=== PATIENT | male | born 1955 | race Hispanic/Latino ===

== ENCOUNTER 2017-03-23 22:01 | Inpatient (IN) | payer OTHER ==
[~2017-03-23] VITALS: Ht 170.2 cm; Wt 89.4 kg
[~2017-03-23 22:01] MED LIST: ACTOS15 MG PO; AMIODARONE HCL200 MG PO; CALCITRIOL0.25 MCG PO; DECARA25000 UNIT PO; FUROSEMIDE40 MG PO; GLUCOTROL10 MG PO; HUMALOG MI100 UNITS/ SC; HYDRALAZINE HCL25 MG PO; LABETALOL HCL200 MG PO; METOPROLOL SUCC25 MG PO; METOPROLOL TART50 MG PO; PREDNISONE5 MG PO; PROGRAF1 MG PO; REGLAN5 MG PO; VITAMIN D1000 UNI1 PO; WARFARIN SODIUM1 MG PO; WARFARIN SODIUM2 MG PO
[2017-03-23] MEDS ORDERED: HUMALOG MI100 UNITS/ SC (22:35)
[2017-03-23] MEDS ORDERED: WARFARIN SODIUM1 MG PO (22:35)
[2017-03-23] MEDS ORDERED: TORSEMIDE20 MG (22:35)
[2017-03-23] MEDS ORDERED: LIDOCAINE JELLY 2% 10ML URO-JET TOP ONE (22:45)
[2017-03-23 23:03] LABS: BASOPHILS % 0.2 % (0.0-1.0); EOSINOPHILS # (AUTO) 0.1 (0.0-0.4); EOSINOPHILS % 0.9 % (0.0-6.0); HEMATOCRIT 33.9 % (38.2-49.6); HEMOGLOBIN 11.3 g/dL (14.0-18.0); LYMPHOCYTES # (AUTO) 1.3 (1.0-3.2); MEAN CORPUSCULAR HEMOGLOBIN 31.1 pg (28-32); MEAN CORPUSCULAR HGB CONC 33.3 g/dL (31-35); MEAN CORPUSCULAR VOLUME 93.4 fL (81-99); MONOCYTES # (AUTO) 0.7 (0.2-0.8); MONOCYTES % 8.5 % (4.4-11.3); NEUTROPHILS # (AUTO) 5.9 (2.1-6.9); NEUTROPHILS % 73.9 % (38.7-80.0); PLATELET COUNT 168 x10e3/uL (140-360); RED BLOOD COUNT 3.63 x10e6/uL (4.3-5.7); RED CELL DISTRIBUTION WIDTH 14.5 % (11.7-14.4)
[2017-03-23 23:06] LABS: ALBUMIN 4.1 g/dL (3.5-5.0); ALBUMIN/GLOBULIN RATIO 1.5 (0.8-2.0); ANION GAP 18.9 mmol/L (8-16); CREATININE, SERUM 2.86 mg/dL (0.72-1.25); POTASSIUM 3.9 mmol/L (3.5-5.1)
[2017-03-23 23:09] LABS: CALCIUM 10.3 mg/dL (8.4-10.2)
[2017-03-23] MEDS ORDERED: HYDRALAZINE HCL 20 MG/ML VIAL IV STA (23:29)
[2017-03-23 23:43] LABS: BILIRUBIN,URINE NEGATIVE (NEGATIVE); CLARITY,URINE CLOUDY (CLEAR); KETONES,URINE TRACE (NEGATIVE); LEUKOCYTE ESTERASE ,URINE 1+ (NEGATIVE); NITRITE,URINE NEGATIVE (NEGATIVE); URINE UROBILINOGEN 0.2 mg/dL (0.2 - 1)
[2017-03-23 23:49] LABS: PROTEIN,URINE DIPSTICK 2+ (NEGATIVE)
[2017-03-23 23:50] LABS: COLOR,URINE STRAW (YELLOW)
[2017-03-23 23:57] LABS: BACTERIA,URINE MODERATE /HPF; EPITHELIAL CELLS,URINE FEW /LPF; MUCUS,URINE MODERATE (RARE); RBC,URINE >50 /HPF (0-5); TRANSITIONAL EPI CELLS,URINE MODERATE; WBC,URINE (MAN) >50 /HPF (0-5)
[2017-03-24] MEDS ORDERED: ALPRAZOLAM0.5 MG PO (00:22)
--- NOTE | 2017-03-24 01:08 | Diagnostic Imaging Report ---
EXAM: CT ABDOMEN AND PELVIS without IV CONTRAST DATE: 03/24/2017 12:31 AM Time stamp on Exam: 0039 hours INDICATION: Lower abdominal pain, unable to urinate COMPARISON: None TECHNIQUE: The abdomen and pelvis were scanned using a multidetector helical scanner. Coronal and sagittal reformations were obtained. Routine protocol performed. IV Contrast: None Oral Contrast: Gastrografin CTDIvol has been reviewed. It is below the limits set by the Radiation Protocol Committee (RPC). FINDINGS: LOWER THORAX: No consolidations LIVER: No masses BILIARY: Normal gallbladder. No ductal dilation. SPLEEN: No masses PANCREAS: Pancreatic atrophy ADRENALS: No nodules RIGHT KIDNEY: No nephroureterolithiasis or hydronephrosis. Cortical thinning. LEFT KIDNEY: No nephroureterolithiasis or hydronephrosis. Cortical thinning. There is a right renal transplant with a few foci of air in the inferior calyces and ureter. Nonspecific stranding around the transplanted ureter. GI TRACT: Left colectomy with right lower quadrant colostomy. No bowel obstruction VESSELS: Marked atherosclerotic changes of the abdominal aorta without aneurysm. Infrarenal inferior vena cava filter. PERITONEUM/RETROPERITONEUM: No free air or fluid LYMPH NODES: No lymphadenopathy REPRODUCTIVE ORGANS: Normal BLADDER: The bladder is decompressed by a Sands catheter. There is a small amount of air in the bladder. SOFT TISSUES: Left lower quadrant colostomy. BONES: No suspicious bone lesions. IMPRESSION: Right pelvic renal transplant without hydronephrosis. Small amount of air in the inferior calyces and ureter is nonspecific and may be from the bladder/Sands catheter. Nonspecific mild amount of stranding around the transplant ureter. Left lower quadrant colostomy. No evidence of bowel obstruction. Signed by: Dr. Belia Joiner M.D. on 03/24/2017 1:04 AM
[2017-03-24] MEDS ORDERED: CEFTRIAXONE SOD 1 GM VIAL IV STA (01:39)
[2017-03-24] MEDS ORDERED: ONDANSETRON HCL INJ 2 MG/ML VIAL IV PRN (02:45)
[2017-03-24] MEDS ORDERED: CEFTRIAXONE SOD 1 GM VIAL IV SCH (02:45)
[2017-03-24] MEDS ORDERED: HYDRALAZINE HCL 25 MG TAB PO PRN (02:45)
[2017-03-24] MEDS ORDERED: METOPROLOL SUCCINATE 25 MG TAB XL PO PRN (02:45)
[2017-03-24] MEDS ORDERED: DEXTROSE 50% SYRINGE 50 ML IV PRN (02:45)
[2017-03-24] MEDS ORDERED: ACETAMINOPHEN 325 MG TAB PO ONE (05:30)
[2017-03-24] MEDS ORDERED: ACETAMINOPHEN 325 MG TAB PO PRN (05:30)
[2017-03-24] MEDS ORDERED: ACETAMINOPHEN 325 MG TAB ONE (05:31)
[2017-03-24] MEDS: INSULIN REGULAR, HUMAN 100 UNIT/1 ML 3ML VIAL SQ SCH ×4 (07:55→21:00)
[2017-03-24] MEDS ORDERED: WARFARIN SOD 2 MG TAB PO SCH (09:00)
[2017-03-24] MEDS ORDERED: METOCLOPRAMIDE HCL 10 MG TAB PO SCH (09:00)
[2017-03-24] MEDS ORDERED: CALCITRIOL 0.25 MCG CAP PO SCH (09:00)
[2017-03-24] MEDS: NON-FORMULARY MEDICATION (Metoclopramide Hcl (Reglan) 5 MG) PO SCH ×4 (09:19→21:00)
[2017-03-24] MEDS: TACROLIMUS 1 MG CAP PO SCH ×2 (09:35→17:01)
[2017-03-24] MEDS: HYDRALAZINE HCL 25 MG TAB PO SCH (09:35)
[2017-03-24] MEDS: AMIODARONE HCL 200 MG TAB PO SCH (09:35)
[2017-03-24] MEDS: ALPRAZOLAM 0.5 MG TAB PO SCH (09:35)
[2017-03-24] MEDS: PREDNISONE 5 MG TAB PO SCH (09:35)
[2017-03-24 09:45] LABS: INR 2.42; PROTHROMBIN TIME 27.6 seconds (11.9-14.5)
--- NOTE | 2017-03-24 13:06 | Consultation ---
DATE OF CONSULTATION: March 24, 2017 HISTORY OF PRESENT ILLNESS: This is a pleasant 62-year-old gentleman with underlying history of chronic kidney disease. He is known to our nephrology service. Has had a cadaveric renal transplant in 2013. He is maintained on Prograf 2 mg twice a day and prednisone 5 mg once a day. Renal has been consulted for management of underlying kidney failure. He also has underlying history of congestive heart failure, hypertension, chronic kidney disease stage 3, history of type 2 diabetes, atrial fibrillation. CURRENT LABS: White count 8. Hemoglobin 11.3. Sodium 141. Potassium 3.9. Bicarbonate 24. BUN 46. Creatinine 2.8. Calcium 10.3. ALLERGIES: NO APPARENT DRUG ALLERGIES. SOCIAL HISTORY: Patient does not smoke or drink. FAMILY HISTORY: Significant for diabetes. CURRENT MEDICATIONS: Reglan 5 mg p.o. q.a.c. and nightly. Warfarin 2 mg daily. Tacrolimus 2 mg p.o. b.i.d. Prednisone 5 mg p.o. daily. Metoprolol XL 25 mg p.o. b.i.d. Hydralazine p.r.n. Ceftriaxone 1 gram IV q.24. Tylenol p.r.n. Xanax 0.5 mg daily. Amiodarone 200 mg daily. Rocaltrol 0.25 mcg p.o. daily. PHYSICAL EXAMINATION: GENERAL: Awake, alert, lying supine. No apparent distress. VITALS: Blood pressure 130/60, pulse rate 80. HEAD AND NECK: Cornea clear. Oral mucosa dry. Neck veins flat. LUNGS: Relatively clear. HEART: S1 and S2 audible. ABDOMEN: Otherwise soft, nontender. LOWER EXTREMITY EXAMINATION: Shows no edema. IMPRESSION: Chronic kidney disease, acute kidney injury, underlying stage 3 kidney failure with a patient having difficulty passing urine. Workup included CT scan abdomen and pelvis, shows left lower quadrant colostomy. Other than that, right pelvic renal transplant without hydronephrosis. Nonspecific mild amount of stranding. He denies any fever and chills. Will have a Sands catheter placed, start gentle IV fluids. Has hypercalcemia. I will discontinue Rocaltrol. Will obtain intact PTH level. Obtain kidney ultrasound. Apply knee-high LÓPEZ hoses. Obtain urine culture. Please see orders. Job#: [id number] EV
--- NOTE | 2017-03-24 13:11 | Diagnostic Imaging Report ---
EXAM: Renal Ultrasound INDICATION: \S\renal; transplant \[id number] \[id number] COMPARISON: CT dated 03/24/2017 TECHNIQUE: Transverse and longitudinal images of the kidneys and bladder were obtained. FINDINGS: Right Kidney: Size: 8.1 cm Echogenicity: Increased Parenchymal thickness: Decreased Collecting system: No hydronephrosis Stones: None Cyst/Mass: None Left Kidney: Size: 8.5 cm Echogenicity: Increased Parenchymal thickness: Decreased Collecting system: No hydronephrosis Stones: None Cyst/Mass: None Bladder: Not imaged. Patient had a Sands catheter in place. Right pelvic transplanted kidney measuring 12.9 x 5.9 x 6.8 cm, demonstrating normal parenchymal thickness and echogenicity. No hydronephrosis. IMPRESSION: Small echogenic cahto kidneys, consistent with known chronic renal disease. Transplanted right pelvic kidney without gross abnormalities. Signed by: Dr. Chas Hardy MD on 03/24/2017 1:07 PM
[2017-03-24] MEDS: CEFEPIME HCL 1 GM VIAL IV SCH (13:16)
[2017-03-24] MEDS: METOCLOPRAMIDE HCL 10 MG TAB PO SCH (16:19)
[2017-03-24] MEDS ORDERED: WARFARIN SOD 1 MG TAB PO SCH (17:00)
[2017-03-25] MEDS ORDERED: CEFTRIAXONE SOD 1 GM VIAL IV SCH (01:00)
[2017-03-25 05:17] LABS: BASOPHILS % 0.3 % (0.0-1.0); EOSINOPHILS # (AUTO) 0.1 (0.0-0.4); EOSINOPHILS % 1.1 % (0.0-6.0); HEMATOCRIT 32.5 % (38.2-49.6); HEMOGLOBIN 10.8 g/dL (14.0-18.0); LYMPHOCYTES # (AUTO) 1.1 (1.0-3.2); LYMPHOCYTES % 13.9 % (18.0-39.1); MEAN CORPUSCULAR HEMOGLOBIN 30.9 pg (28-32); MEAN CORPUSCULAR HGB CONC 33.2 g/dL (31-35); MEAN CORPUSCULAR VOLUME 93.1 fL (81-99); MONOCYTES # (AUTO) 0.9 (0.2-0.8); MONOCYTES % 11.4 % (4.4-11.3); NEUTROPHILS # (AUTO) 5.8 (2.1-6.9); NEUTROPHILS % 72.9 % (38.7-80.0); PLATELET COUNT 138 x10e3/uL (140-360); RED BLOOD COUNT 3.49 x10e6/uL (4.3-5.7); RED CELL DISTRIBUTION WIDTH 14.5 % (11.7-14.4)
[2017-03-25 05:42] LABS: ALBUMIN 3.4 g/dL (3.5-5.0); ALBUMIN/GLOBULIN RATIO 1.4 (0.8-2.0); ANION GAP 14.6 mmol/L (8-16); CALCIUM 9.7 mg/dL (8.4-10.2); CREATININE, SERUM 2.33 mg/dL (0.72-1.25); POTASSIUM 3.6 mmol/L (3.5-5.1)
[2017-03-25] MEDS: INSULIN REGULAR, HUMAN 100 UNIT/1 ML 3ML VIAL SQ SCH (08:09)
[2017-03-25] MEDS: NON-FORMULARY MEDICATION (Metoclopramide Hcl (Reglan) 5 MG) PO SCH (08:17)
[2017-03-25] MEDS: HYDRALAZINE HCL 25 MG TAB PO SCH (08:18)
[2017-03-25] MEDS: TACROLIMUS 1 MG CAP PO SCH (08:18)
[2017-03-25] MEDS: METOCLOPRAMIDE HCL 10 MG TAB PO SCH (08:18)
[2017-03-25] MEDS: CEFEPIME HCL 1 GM VIAL IV SCH (08:18)
[2017-03-25] MEDS: AMIODARONE HCL 200 MG TAB PO SCH (08:18)
[2017-03-25] MEDS: ALPRAZOLAM 0.5 MG TAB PO SCH (08:18)
[2017-03-25] MEDS: PREDNISONE 5 MG TAB PO SCH (08:18)
[2017-03-25 09:36] VITALS: BP 151/59
[2017-03-25] MEDS ORDERED: CEFEPIME HCL 1 GM VIAL IV ONE (09:45)
--- OUTSIDE RECORDS SUMMARY | 2017-04-11 11:19 | XMS REPORT ---
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 Allergies, Adverse Reactions, Alerts This patient has no known allergies or adverse reactions. Medications This patient has no known medications. Results Test Description Test Time Test Comments Text Results Atomic Results Result Comments CT ABDOMEN/PELVIS WO [place] [id number] Patient Name: MARTHA SMITH MR #: [id number] : 1955 Age/Sex: 62/M Req #: [id number] Adm Physician: Ordered by: BE MEZA MD Report #: [id number] Location: ER Room/Bed: ___ Procedure: [id number] CT/CT ABDOMEN/PELVIS WO Exam Date: Exam Time: REPORT STATUS: Signed EXAM: CT ABDOMEN AND PELVIS without IV CONTRAST DATE: 03/24/2017 12:31 AM Time stamp on Exam: 0039 hours INDICATION: Lower abdominal pain, unable to urinate COMPARISON: None TECHNIQUE: The abdomen and pelvis were scanned using a multidetector helical scanner. Coronal and sagittal reformations were obtained. Routine protocol performed. IV Contrast: None Oral Contrast: Gastrografin CTDIvol has been reviewed. It is below the limits set by the Radiation Protocol Committee (RPC). FINDINGS: LOWER THORAX: No consolidations LIVER : No masses BILIARY: Normal gallbladder. No ductal dilation. SPLEEN: No masses PANCREAS: Pancreatic atrophy ADRENALS: No nodules RIGHT KIDNEY: No nephroureterolithiasis or hydronephrosis. Cortical thinning. LEFT KIDNEY: No nephroureterolithiasis or hydronephrosis. Cortical thinning. There is a right renal transplant with a few foci of air in the inferior calyces and ureter. Nonspecific stranding around the transplanted ureter. GI TRACT: Left colectomy with right lower quadrant colostomy. No bowel obstruction VESSELS: Marked atherosclerotic changes of the abdominal aorta without aneurysm. Infrarenal inferior vena cava filter. PERITONEUM/ RETROPERITONEUM: No free air or fluid LYMPH NODES: No lymphadenopathy REPRODUCTIVE ORGANS: Normal BLADDER: The bladder is decompressed by a Sands catheter. There is a small amount of air in the bladder. SOFT TISSUES: Left lower quadrant colostomy. BONES: No suspicious bone lesions. IMPRESSION: Right pelvic renal transplant without hydronephrosis. Small amount of air in the inferior calyces and ureter is nonspecific and may be from the bladder/Sands catheter. Nonspecific mild amount of stranding around the transplant ureter. Left lower quadrant colostomy. No evidence of bowel obstruction. Signed by: Dr. Kira Joiner M.D. on 03/24/2017 1: 04 AM Dictated By: KIRA JOINER MD 3 Transcribed By: LESIA on 03/24/17103 COPY TO: BE MEZA MD RENAL RETROPERITONEAL COMP [place] [address] Patient Name: MARTHA SMITH MR #: [id number] : 1955 Age/Sex: 62/M Req #: [id number] Adm Physician: KALEB CHA MD Ordered by: INOCENCIA PEARL, ANGELIQUE PEARL Report #: [id number] Location: [facility] Room/Bed: [place] [address] Procedure: [id number] US/US RENAL RETROPERITONEAL COMP Exam Date: 03/24/17 Exam Time: 1158 REPORT STATUS: Signed EXAM: Renal Ultrasound INDICATION: COMPARISON: CT dated 03/24/2017 TECHNIQUE: Transverse and longitudinal images of the kidneys and bladder were obtained. FINDINGS: Right Kidney: Size: 8.1 cm Echogenicity: Increased Parenchymal thickness: Decreased Collecting system: No hydronephrosis Stones: None Cyst/Mass: None Left Kidney: Size: 8.5 cm Echogenicity: Increased Parenchymal thickness: Decreased Collecting system: No hydronephrosis Stones: None Cyst/Mass : None Bladder: Not imaged. Patient had a Sands catheter in place. Right pelvic transplanted kidney measuring 12.9 x 5.9 x 6.8 cm, demonstrating normal parenchymal thickness and echogenicity. No hydronephrosis. IMPRESSION: Small echogenic barrow kidneys, consistent with known chronic renal disease. Transplanted right pelvic kidney without gross abnormalities. Signed by: Dr. Chas Adams MD on 03/24/2017 1:07 PM Dictated By: CHAS ADAMS MD 1307 Transcribed By: LESIA on 03/24/17 1307 COPY TO: ANGELIQUE PRO Stress Test - Treadmill ONLY [place] [address] Patient Name : MARTHA SMITH MR #: [id number] : 1955 Age/Sex: 62/M Adm Physician : KALEB CHA MD Admit Date : 02/23/17 Location : MED/SURG Room/Bed : [facility] REPORT: Cardiology Report DATE OF STUDY: February 24, 2017 LEXISCAN NUCLEAR STRESS TEST INDICATIONS: Chest pain. DESCRIPTION OF PROCEDURE: After informed consent, the patient was brought to the stress lab. He was given 11 mCi of technetium 99 Myoview, and myocardial perfusion SPECT images were obtained in the horizontal long and short axis and vertical long axis views. Subsequently, the patient was given 0.4 mg of Lexiscan over 10 seconds. Patient was given 32 mCi of technetium 99 Myoview, and myocardial perfusion SPECT images were obtained in horizontal long axis and short axis and vertical long axis views. Gated images were also obtained. Patient tolerated the procedure without any complications. REPORT: Baseline EKG shows sinus rhythm at 78 beats per minute, right axis, right bundle branch block, secondary ST-T changes. PARAMETERS 1. Resting heart rate is 78 beats per minute. 2. Maximum heart rate is 89 beats per minute. 3. Resting blood pressure 121/65 mmHg. 4. Maximum blood pressure 126/67 mmHg. REASON FOR TERMINATION: Endpoint attained. INTERPRETATION 1. Negative for chest pain. 2. Negative for arrhythmias. 3. Blood pressure response consistent with Lexiscan. 4. No significant ST-T changes seen during Lexiscan infusion compared to baseline. 5. Analysis of SPECT images reveals a small area of decreased radioisotope uptake in the inferior wall both during rest and stress without any significant reversible perfusion defects. CONCLUSIONS 1. This study demonstrates a small area of inferior wall infarction. No significant ischemia is noted. 2. Overall ejection fraction is 54%. DD: 12:32 Job#: [id number] Signature Date Dictated By: IBRAHIMA KULKARNI MD Transcribed By: MERRICK on 02/25/17 <Electronically signed by IBRAHIMA KULKARNI MD><<Signature on File>>03/04/17 4804 COPY TO: CHEST [facility] (PORTABLE) [place] [address] Patient Name: MARTHA SMITH MR #: [id number] : 1955 Age/Sex: 62/M Req #: [id number] Adm Physician: Ordered by: ANILA TREVIÑO MD Report #: [id number] Location: ER Room/Bed: Procedure: [id number] DX/CHEST SINGLE (PORTABLE) Exam Date: 02/22/17 Exam Time: 1515 REPORT STATUS: Signed EXAMINATION: Chest, CHEST SINGLE (PORTABLE) INDICATION: Chest pain COMPARISON : Portable chest 02/09/2017 FINDINGS: LINES: None. Heart: Normal cardiac silhouette. Vascular: The pulmonary vasculature is within normal limits. Atherosclerotic calcifications of the aortic arch. Mediastinum: No mediastinal, hilar, or axillary mass or lymphadenopathy. Lungs: No parenchymal mass. No focal consolidation. Pleura: No pleural effusion. No pneumothorax. Bones: No acute osseous abnormality. Degenerative changes of the thoracic spine. Soft tissues: Normal. Impression: No acute radiographic abnormality. Signed by: Dr. Kaleb Barrow M.D. on 02/22/2017 3:40 PM Dictated By: KALEB BARROW MD 154 Transcribed By: LESIA on 02/22/17 154 COPY TO: ANILA TREVIÑO MD RENAL RETROPERITONEAL COMP [place] [address] Patient Name: MARTHA SMITH MR #: [id number] : 1955 Age/Sex: 62/M Req #: [id number] Adm Physician: KALEB CHA MD Ordered by: CHERYLE PUCKETT MD Report #: [id number] Location: MED/SURG Room/Bed: 113-1 Procedure: [id number] US/US RENAL RETROPERITONEAL COMP Exam Date: Exam Time: REPORT STATUS: Signed PROCEDURE: US RETROPERITONEAL ( KIDNEY ). COMPARISON: None. INDICATIONS: AKICKD+DDKTx TECHNIQUE: Comer-scale and color sonographic images of the bilateral kidneys and bladder where obtained in transverse and longitudinal planes. FINDINGS: RIGHT KIDNEY: 7.8 cm, cortex 1.1 cm Cysts: None. Solid masses: None. Stones: None. Hydronephrosis: None. Echogenicity: Increased. LEFT KIDNEY: 8.6 cm, cortex 0.9 cm Cysts: None. Solid masses: None. Stones: None. Hydronephrosis: None. Echogenicity: Increased. Transplant KIDNEY: 13.4 cm, right lower quadrant Cysts: None. Solid masses: None. Stones: None. Hydronephrosis: None. Echogenicity: Normal. Bladder: Normal contour. The left ureteral jet is visualized. Prostate: Not visualized. CONCLUSION: Normal transplant kidney. Dictated by: Kaleb Barrow M.D. on 02/10/2017 at 14: 13 Electronically approved by: Kaleb Barrow M.D. on 02/10/2017 at 14:13 Dictated By: KALEB BARROW MD 141 Transcribed By: LALO on 02/10/17 1413 COPY TO: CHERYLE PUCKETT MD [facility] (PORTABLE) [place] [address] Patient Name: MARTHA SMITH MR #: [id number] : 1955 Age/Sex: 62/M Req #: [id number] [facility] Physician: Ordered by: PETRA DE LA CRUZ MD Report #: [id number] Location: ER Room/Bed: Procedure: [id number] DX/CHEST SINGLE (PORTABLE) Exam Date: 02/09/17 Exam Time: 1050 REPORT STATUS: Signed EXAM: XR CHEST 1 VIEW DATE: 02/09/2017 10:13 AM INDICATION: Elevated blood pressure COMPARISON: 01/14/2017 FINDINGS: Lines and Tubes: None Heart and Mediastinum: The cardiomediastinal silhouette is enlarged, possibly partially related to portable technique and/or low lung volumes. Aortic vascular calcifications present. Lungs and Pleura: Minimal opacities in the lung bases statistically represent atelectasis, however, infectious process could have a similar appearance. Bones and Soft Tissues: No acute findings. IMPRESSION: 1. No acute cardiopulmonary findings. Signed by: Dr. Rolo Padilla MD on 02/09/2017 11:06 AM Dictated By: ROLO PADILLA MD 1106 Transcribed By: LESIA on 02/09/17 110 COPY TO: PETRA DE LA CRUZ MD CT BRAIN WO [place] [address] Patient Name: MARTHA SMITH MR #: [id number] : 1955 Age/Sex: 62/M Req # : [id number] Adm Physician: Ordered by: PETRA DE LA CRUZ MD Report #: [id number] Location: ER Room/Bed: Procedure: [id number] CT/CT BRAIN WO Exam Date: 02/09/17 Exam Time: 1040 REPORT STATUS: Signed Examination: CT BRAIN WITHOUT CONTRAST History:Slurred speech. Elevated blood pressure. Anxiety. Comparison studies: None Technique: Axial images were obtained from the skull base to the vertex. Coronal and sagittal images reconstructed from the axial data. Intravenous contrast: None Findings: Scalp: No abnormalities. Bones : No fractures, blastic or lytic lesions. Brain sulci: Appropriate for age. Ventricles: Normal in size and configuration. No hydrocephalus. Extra-axial space: No abnormalities. Parenchyma: There are patchy areas of hypoattenuation in the periventricular and subcortical white matter, nonspecific. No masses, hemorrhage, or acute or chronic cortical based vascular insults. Sellar/suprasellar region: No abnormalities. Craniocervical junction: Patent foramen magnum. No Chiari one malformation. Incidental findings: Atherosclerotic calcification of the external carotid artery branches in the scalp, cavernous and supraclinoid internal carotid and V4 segments of the bilateral vertebral arteries.. Impression: 1. No acute intracranial abnormalities. 2. Mild chronic microvascular ischemic change. Signed by: Dr. Brock Garrett M.D. on 02/09/2017 12:15 PM Dictated By: BROCK MERRILL MD 1215 Transcribed By: LESIA on 1215 COPY TO: PETRA DE LA CRUZ MD GASTRIC EMPTYING [place] [address] Patient Name: MARTHA SMITH MR #: [id number] : 1955 Age/Sex: 61/M Req # : [id number] Adm Physician: KALEB CHA MD Ordered by: KALEB CHA MD Report #: [id number] Location: MED/SURG2 Room/Bed: [facility] _ Procedure: [id number] NM/GASTRIC EMPTYING Exam Date: 01/18/17 Exam Time: 0830 REPORT STATUS: Signed Solid-phase gastric emptying study Reason for examination: Abdominal distension; chronic nausea and vomiting The protocol used for this study is based on the Consensus Recommendations for Gastric Scintigraphy by the [place] [employer] Society and the Society of Nuclear Medicine. Clinical information: The patient is diabetic. Blood glucose level this morning was 177 mg/dL. The patient had a colostomy in 2014. The patient has been fasting for at least 6 hours prior to this exam. Radiopharmaceutical: Tc-99m sulfur colloid 1 mCi Report: The radiopharmaceutical was added to 1/2 cup egg whites that were then prepared and served with 2 pieces of white bread toasted, 30 grams of jam and 4 ounces of water. The patient took the meal orally without difficulty. Images were obtained of the abdomen in the anterior and posterior projections at 10 minutes post the meal and at 1, 2, 3, and 4 hours. Uptake was determined from the geometric mean of the anterior and posterior counts and the counts were corrected for decay of the radiolabel. The percent gastric retention of the labeled meal at: 1 hour was 71% (normal 30-90%) 2 hours was 37% ( normal <60%) 3 hours was 31% (normal <30%) 4 hours was 21% (normal <10%) Impression: Prolonged gastric emptying between 2 and 4 hours. Scan findings support the clinical diagnosis of gastroparesis. . Signed by: Dr. Fransisca Dunn M.D. on 01/18/2017 1:02 PM Dictated By: FRANSISCA DUNN MD 1302 Transcribed By: LESIA on 01/18/17 1302 COPY TO: KALEB CHA MD [facility]OMEN-[facility] ([place] [address] Patient Name: MARTHA SMITH MR #: [id number] : 1955 Age/Sex: 61/M Req #: [id number] Adm Physician: KALEB CHA MD Ordered by: KELLE REBOLLAR MD Report #: [id number] Location: MED/SURG2 Room/Bed: 209 -1 Procedure: [id number] DX/ABDOMEN-1VIEW (KUB) Exam Date: 01/17/17 Exam Time: 1325 REPORT STATUS: Signed PROCEDURE: X-RAY ABDOMEN - KUB COMPARISON: Abdominal CT 01/14 INDICATIONS: ABDOMINAL DISTENSION FINDINGS: There is a non-obstructed bowel-gas pattern. Diffuse vascular calcifications. IVC filter is unchanged in position. Stable metallic densities overlying the pelvis, noted to be within the rectum on prior CT. Surgical clip overlying the upper sacrum related to Gu[place] pouch. Left lower quadrant colostomy better seen on prior CT. There are no acute osseous abnormalities. The lung bases are clear. CONCLUSION: Non-obstructed bowel-gas pattern. Dictated by: Lloyd Young M.D. on 01/17/2017 at 15:05 Electronically approved by: Lloyd Young M.D. on 01/17/2017 at 15:05 Dictated By: LLOYD YOUNG MD 1505 Transcribed By: LALO on 01/17/17 1505 COPY TO: KELLE REBOLLAR MD CT ABDOMEN/PELVIS [place] [address] Patient Name: MARTHA SMITH MR #: [id number] : 1955 Age/Sex: 61/M Req #: [id number] [facility] Physician: KALEB CHA MD Ordered by: INOCENCIA PEARL, ANGELIQUE PEARL Report #: [id number] Location: MED/SURG2 Room/Bed: 209-1 Procedure: [id number] CT/CT ABDOMEN/PELVIS WO Exam Date: 01/14/17 Exam Time: 1150 REPORT STATUS: Signed PROCEDURE: CT ABDOMEN AND PELVIS WITHOUT CONTRAST TECHNIQUE: The abdomen and pelvis were scanned utilizing a multidetector helical scanner from the diaphragm to the lesser trochanter after the oral administration of dilute Gastrografin. No IV contrast was administered per physician's request. Coronal and sagittal multiplanar reformations were obtained. COMPARISON: None. INDICATIONS: NAUSEA, VOMITING FINDINGS: ABSENCE OF INTRAVENOUS CONTRAST DECREASES SENSITIVITY FOR DETECTION OF FOCAL LESIONS AND VASCULAR PATHOLOGY. LOWER THORAX: 7 mm calcified granuloma in the right lower lobe. 3 mm calcified granuloma in the left lower lobe (sagittal image 120). Lung bases are otherwise clear. Atherosclerotic calcification of the coronary arteries. Mild cardiomegaly. HEPATOBILIARY: Normal hepatic size and contour. Punctate calcified granuloma in hepatic segment VII (series 2, image 16). No other focal lesions. No biliary ductal dilation. Gallbladder is unremarkable. SPLEEN: No splenomegaly. PANCREAS: Mild pancreatic atrophy. No focal lesions or ductal dilation. ADRENALS: No adrenal nodules. KIDNEYS/URETERS: Bilateral barrow renal atrophy, cortical thinning and extensive atherosclerotic calcification of renal artery branches. No hydronephrosis. No renal or ureteral calculi. No renal contour abnormalities. A pelvic kidney is identified, without hydronephrosis or hydroureter, stones, or focal lesions. PELVIC ORGANS/ BLADDER: Bladder is grossly unremarkable. No focal lesions. PERITONEUM / RETROPERITONEUM: No free air or fluid. LYMPH NODES: No lymphadenopathy. VESSELS: Extensive atherosclerotic calcification of the aorta, aortic branches, pelvic, and iliac vessels. IVC filter in place. GI TRACT: No bowel dilation or evidence of obstruction. No pericolonic inflammatory changes. The appendix is identified, and normal in caliber. Irregular shaped intraluminal high density material in the distal rectum, which may be metallic (series 2, image 87). BONES AND SOFT TISSUES: No acute bony abnormalities. Degenerative changes in the lower thoracic and lumbosacral spine. Small bilateral fat containing inguinal hernias, right greater than left. IMPRESSION: 1. no acute abdominopelvic abnormalities. No bowel dilation or evidence of obstruction. 2. Bilateral barrow renal atrophy, cortical thinning, likely endstage renal disease. A pelvic kidney is noted, without hydronephrosis, stones, or focal lesions. 3. High density intraluminal material in the distal rectum may represent metallic rosalina or sutures. 4. Extensive atherosclerotic disease of the aorta and aortic branches. 5. Prior granulomatous disease. Salazar Calixto M.D. Dictated by: Salazar Calixto M.D. on 01/14/2017 at 12:29 Electronically approved by: Salazar Calixto M.D. on 01/14/2017 at 12:29 Dictated By: SALAZAR CALIXTO MD 28 Transcribed By: LALO on 01/14/17 1229 COPY TO: ANGELIQUE PRO CHEST SINGLE (PORTABLE) [place] [address] Patient Name: MARTHA SMITH MR #: [id number] : 1955 Age/Sex: 61/M Req #: [id number] Adm Physician: Ordered by: MARILOU CONDON MD Report #: [id number] Location: ER Room/Bed: Procedure: [id number] DX/CHEST SINGLE (PORTABLE) Exam Date: 01/14/17 Exam Time: 714 REPORT STATUS: Signed PROCEDURE: CHEST SINGLE (PORTABLE) COMPARISON: [facility], DX, CHEST SINGLE (PORTABLE), 11/05/2016, 9:00. INDICATIONS: SHORTNESS OF BREATH, AFIB, VOMITING FINDINGS: LUNGS: Compared to the prior study there is an increase in the pulmonary vascularity with cephalization of blood flow to the upper lobes compatible with mild pulmonary edema. PLEURA: No effusions or pneumothorax. HEART T MEDIASTINUM: The heart remains enlarged. Calcification within the aortic knob. BONES T SOFT TISSUES: No acute findings. CONCLUSION: Cardiomegaly with mild pulmonary edema. Phil Coleman D.O. Dictated by: Phil Coleman D.O. on 01/14/2017 at 8:00 Electronically approved by: Phil Coleman D.O. on 01/14/2017 at 8:00 Dictated By: PHIL COLEMAN DO 0800 Transcribed By: LALO on 01/14/17 0800 COPY TO: MARILOU CONDON MD CHEST SINGLE (PORTABLE) [place] [address] Patient Name: MARTHA SMITH MR #: [id number] : 1955 Age/Sex: 61/M Req #: [id number] Adm Physician: Ordered by: PETRA DOWNING MD Report #: [id number] Location: ER Room/Bed: Procedure: [id number] DX/CHEST SINGLE (PORTABLE) Exam Date: 11/05/16 Exam Time: 0900 REPORT STATUS: Signed PROCEDURE: A single AP view of the chest. COMPARISON: None. INDICATIONS: RIGHT SIDE CHEST PAIN TODAY FINDINGS: See impression. IMPRESSION: 1. exam limited by patient rotation. 2. Enlarged cardiac silhouette and mild central pulmonary venous congestion. No overt pulmonary edema, consolidation, or effusion. 3. No acute bony abnormalities. 4. Preliminary report provided by Dr. Calixto 11/06/2015 at 0928 hrs. Salazar Calixto M.D. Dictated by: Salazar Calixto M.D. on 11/06/2016 at 13:42 Electronically approved by: Salazar Calixto M.D. on 11/06/2016 at 13 :42 Dictated By: SALAZAR CLAIXTO MD 1343 Transcribed By: LALO on 11/06/16 1343 COPY TO: PETRA DOWNING MD
== END 2017-03-25 09:52 | disposition home or self-care (01) | DRG 690 ==
LOC: ER 22:01 → ERHOLD 03-24 02:39 → EDBEDREQ 03-24 02:43 → UNDOADMIN 03-24 04:20 → ERHOLD 03-24 04:20 → EDBEDREQ 03-25 04:52 → EDBEDREQTM 03-25 04:52 → ER 03-25 09:52
PROVIDERS: ADMIT Internal Medicine; ATTEND Internal Medicine
DX: N30.01 Acute cystitis with hematuria (principal); E11.22 Type 2 diabetes mellitus with diabetic chronic kidney disease; N17.9 Acute kidney failure, unspecified; I13.0 Hypertensive heart and chronic kidney disease with heart failure and stage 1 through stage 4 chronic kidney disease, or unspecified chronic kidney disease; N18.3 Chronic kidney disease, stage 3 (moderate); I50.9 Heart failure, unspecified; Z94.0 Kidney transplant status; Z86.718 Personal history of other venous thrombosis and embolism; H54.8 Legal blindness, as defined in USA; G89.29 Other chronic pain; I48.91 Unspecified atrial fibrillation; Z93.3 Colostomy status; E83.52 Hypercalcemia
CPT/HCPCS: 36415; 74176; 76770; 80053; 81001; 82948; 83970; 85025; 85610; 87086; 87186; 99284; J0360; J0692; J0696; J2405; J7507; J7512

== ENCOUNTER 2017-04-23 11:20 | Emergency (ER) | payer OTHER ==
[~2017-04-23] VITALS: Ht 170.2 cm; Wt 89.4 kg
[~2017-04-23 11:20] MED LIST changes: +ALPRAZOLAM0.5 MG PO; +TORSEMIDE20 MG
--- OUTSIDE RECORDS SUMMARY | 2017-04-23 11:22 | XMS REPORT | Continuity of Care Document ---
Author Author [facility] Organization [facility] Address [address] [place] [address] Phone Unavailable Care Team Providers Care Analytical Clerk Name Role Phone JELANI HESS MD PCP Insurance Providers Guarantor Sterling Rios Address [address] [place] [address] Email PT DECLINED Payer [facility] [employer] Policy Number [id number] Subscriber's Name Sterling Rios Relationship 18 Self / Same As Patient Group Number [id number] Group Name [employer] - Medicare Advantage Divis Effective Date 17 Advance Directives Directive Response Recorded Date/Time Does the patient have an advance directive? Yes 02/23/17 9:12am If yes, is advance directive on file with [facility]? No 02/09/17 3:54pm If not on file with [facility] will patient provide a copy? Yes 02/09/17 3:54pm Do you have a Directive to Physician? No 03/24/17 12:17am Do you have a Medical Power of Contact Center Director? No 03/24/17 12:17am Do you have an out of hospital Do Not Resuscitate Order? No 03/24/17 12:17am Do you have any special needs we should be aware of? No 03/24/17 12:17am Do you have a support person here with you today? Yes 03/24/17 12:17am Did patient receive Notice of Privacy Practices? Yes 03/24/17 12:17am Did patient receive patient rights and responsibilities? Yes 03/24/17 12:17am Problems Medical Problem Onset Date Status Atrial fibrillation Unknown Acute Chest pain Unknown Cystitis Unknown Palpitations Unknown TIA (transient ischemic attack) Unknown Surgical Problem Onset Date Status Renal transplant recipient Unknown Medications Current Home Medications Medication Dose Units Route Directions Days Qty Instructions Start Date Alprazolam 0.5 Mg Tablet 0.5 Mg Oral Daily 90 Tab Amiodarone Hcl 200 Mg Tablet 200 Mg Oral Daily Calcitriol 0.25 Mcg Capsule 0.25 Mcg Oral Daily 30 Tab Furosemide 40 Mg Tablet 40 Mg Oral Twice A Day 30 Tab Glipizide (Glucotrol) 10 Mg Tablet 10 Mg Oral Daily Hydralazine Hcl 25 Mg Tab 100 Mg Oral Daily Hydralazine Hcl 25 Mg Tab 50 Mg Oral Every 6 Hours as needed for >Hm=996 Insulin Lisp Protam/Lisp Human (Humalog Mix 75-25 Vial) 100 Units/Ml Ml Subcutaneously Before Meals And At Bedtime Metoclopramide Hcl (Reglan) 5 Mg Tablet 5 Mg Oral Before Meals And At Bedtime Metoprolol Succinate 25 Mg Tab.er.24h 25 Mg Oral Twice A Day as needed for High Blood Pressure hold if heart rate <100 Prednisone 5 Mg Tablet 5 Mg Oral Daily Tacrolimus (Prograf) 1 Mg Cap 2 Mg Oral Twice A Day Torsemide 20 Mg Tablet Warfarin Sodium 1 Mg Tablet 1 Mg Oral Use As Directed 30 Tab Warfarin Sodium 2 Mg Tablet 2 Mg Oral T,Fri,Th,Sat,Sun Past Home Medications Medication Directions Ordered Status Cholecalciferol (Vitamin D3) (Vitamin D) 1,000 Unit Tablet, 2000 Unit Oral Daily Discontinued Insulin Lisp Protam/Lisp Human (Humalog Mix 75-25 Vial) 100 Units/Ml Ml, 60 Unit Subcutaneously Daily At 1700 Discontinued Labetalol Hcl 200 Mg Tablet, 200 Mg Oral Daily Discontinued Metoprolol Tartrate 50 Mg Tablet, 50 Mg Oral Twice A Day Discontinued Pioglitazone Hcl (Actos*) 15 Mg Tablet, 30 Mg Oral Daily Discontinued Warfarin Sodium 1 Mg Tablet, 1 Mg Oral M,F Discontinued Family History Relationship Condition Age at Onset Recorded Date/Time 09 Brother Family history of diabetes mellitus Not Recorded 01/14/2017 3: 25pm 09 Brother Family history of hypertension Not Recorded 01/14/2017 3:25pm 33 Father Family history of diabetes mellitus Not Recorded 01/14/2017 3:25pm 32 Mother Family history of completed stroke Not Recorded 01/14/2017 3:25pm 32 Mother Family history of hypertension Not Recorded 01/14/2017 3:25pm Social History Social History Problem Response Recorded Date/Time Onset Date Status Hx Psychiatric Problems PATIENT DENIES 02/23/2017 9:12am Not Applicable Not Applicable Hx Eating Disorder No 02/09/2017 3:54pm Not Applicable Not Applicable Hx Substance Use Disorder No 02/09/2017 3:54pm Not Applicable Not Applicable Hx Depression No 02/09/2017 3:54pm Not Applicable Not Applicable Hx Alcohol Use No 02/09/2017 3:54pm Not Applicable Not Applicable Hx Substance Use Treatment No 02/09/2017 3:54pm Not Applicable Not Applicable Hx Physical Abuse No 02/09/2017 3:54pm Not Applicable Not Applicable Smoking Status Start Date Stop Date Never Smoker Hospital Discharge Instructions No hospital discharge instruction information available. Plan of Care Discharge Date 03/25/17 9:52am Disposition HOME, SELF-CARE Instructions/Education Provided Urinary Tract Infection - Men Prescriptions See Medication Section Functional Status No functional status information available. Allergies, Adverse Reactions, Alerts No known allergies. Immunizations No immunization information available. Vital Signs Acute Vital Signs Vital Response Date/Time Temperature (Fahrenheit) 96.8 degrees F (97.6 - 99.5) 02/26/2017 8:06am Pulse Pulse Rate (adult) 57 bpm (60 - 90) 03/25/2017 9:36am Respiratory Rate 19 bpm (12 - 24) 03/25/2017 9:36am Blood Pressure 151/59 mm Hg 03/25/2017 9:36am Height 5 ft 7 in 03/23/2017 10:18pm Weight 197 lb 03/23/2017 10:18pm Body Mass Index 30.9 kg/m^2 03/23/2017 10:18pm Results Laboratory Results Test Name Result Units Flags Reference Collection Date/Time Result Date/ Time Comments D-Dimer Quantitative (PE/DVT) 0.68 ug/mLFEU H 0.00-0.45 11/05/2016 8: 55am 11/05/2016 9:40am Amylase Level 41 U/L 25-125 01/14/2017 6:00am 01/14/2017 11:20am Lipase 16 U/L 8-78 01/14/2017 6:00am 01/14/2017 11:20am Phosphorus Level 3.2 MG/DL 2.3-4.7 02/10/2017 6:45am 02/10/2017 8:02am Magnesium Level 1.6 MG/DL 1.3-2.1 02/10/2017 6:45am 02/10/2017 8:02am B-Type Natriuretic Peptide 1257.2 pg/mL H 0-100 02/09/2017 11:24am 02/09 12:22pm Activated Partial Thromboplast Time 39.4 seconds H 23.8-35.5 02/22/2017 2 :34pm 02/22/2017 3:15pm Urine Hyaline Casts 2-5 H 0-1 02/22/2017 3:50pm 02/22/2017 4:42pm Urine Yeast MANY H NONE 02/24/2017 2:25am 02/24/2017 2:52am Urine Random Total Protein 7.4 mg/dL 1-14 02/24/2017 2:25am 02/24/2017 3:01pm Urine Random Sodium 28 mmol/L 02/24/2017 2:25am 02/24/2017 3:15am Urine Creatinine 60.36 mg/dL L 63-166 02/24/2017 2:25am 02/24/2017 3: 01pm Urine Protein/Creatinine Ratio 0.00 02/24/2017 2:25am 02/24/2017 3: 01pm Influenza Virus Types A,B Antigen NEGATIVE NEGATIVE 02/23/2017 8:01pm 02/23/2017 8:17pm Triglycerides Level 141 MG/DL 0-149 02/23/2017 6:05am 02/23/2017 8: 50am Cholesterol Level 209 MD/DL H 0-199 02/23/2017 6:05am 02/23/2017 8:50am Less than 200 mg/dL Low Risk 201 - 239 mg/dL Borderline Risk 240 mg/dl and greater High Risk LDL Cholesterol 136 MG/DL H 60-130 02/23/2017 6:05am 02/23/2017 8:50am HDL Cholesterol 45 MG/DL 40-60 02/23/2017 6:05am 02/23/2017 8:50am Cholesterol/HDL Ratio 4.6 3.9-4.7 02/23/2017 6:05am 02/23/2017 8: 50am Creatine Kinase 47 IU/L 30-200 02/23/2017 2:10pm 02/23/2017 2:46pm Creatine Kinase MB 2.10 ng/mL 0.00-5.00 02/23/2017 2:10pm 02/23/2017 2: 59pm Troponin I 0.215 ng/mL 0-0.300 02/23/2017 2:10pm 02/23/2017 2:59pm Tacrolimus (Prograf) Level 5.2 ng/mL 2.0-20.0 02/24/2017 6:15am 2016 12:03pm Trough (immediately following transplant) 15.0 Trough (steady state, 2 weeks or more after transplant): 3.0 - 8.0 Detection Limit=1.0 Performed by LC-MS/MS technology. Performed at: - [address] [id number] Actuarial Science Professor: Malik Martinez MD, Phone: [phone] White Blood Count 7.98 x10e3/uL 4.8-10.8 03/25/2017 5:04am 03/25/2017 5 :26am Red Blood Count 3.49 x10e6/uL L 4.3-5.7 03/25/2017 5:04am 03/25/2017 5: 26am Hemoglobin 10.8 g/dL L 14.0-18.0 03/25/2017 5:04am 03/25/2017 5:26am Hematocrit 32.5 % L 38.2-49.6 03/25/2017 5:04am 03/25/2017 5:26am Mean Corpuscular Volume 93.1 fL 81-99 03/25/2017 5:04am 03/25/2017 5: 26am Mean Corpuscular Hemoglobin 30.9 pg 28-32 03/25/2017 5:04am 03/25/2017 5:26am Mean Corpuscular Hemoglobin Concent 33.2 g/dL 31-35 03/25/2017 5:04am 03/25/2017 5:26am Red Cell Distribution Width 14.5 % H 11.7-14.4 03/25/2017 5:04am 2017 5:26am Platelet Count 138 x10e3/uL L 140-360 03/25/2017 5:04am 03/25/2017 5: 26am Neutrophils (%) (Auto) 72.9 % 38.7-80.0 03/25/2017 5:04am 03/25/2017 5: 26am Lymphocytes (%) (Auto) 13.9 % L 18.0-39.1 03/25/2017 5:04am 03/25/2017 5 :26am Monocytes (%) (Auto) 11.4 % H 4.4-11.3 03/25/2017 5:04am 03/25/2017 5: 26am Eosinophils (%) (Auto) 1.1 % 0.0-6.0 03/25/2017 5:04am 03/25/2017 5: 26am Basophils (%) (Auto) 0.3 % 0.0-1.0 03/25/2017 5:04am 03/25/2017 5:26am IM GRANULOCYTES % 0.4 % 0.0-1.0 03/25/2017 5:04am 03/25/2017 5:26am Neutrophils # (Auto) 5.8 2.1-6.9 03/25/2017 5:04am 03/25/2017 5:26am Lymphocytes # (Auto) 1.1 1.0-3.2 03/25/2017 5:04am 03/25/2017 5:26am Monocytes # (Auto) 0.9 H 0.2-0.8 03/25/2017 5:04am 03/25/2017 5:26am Eosinophils # (Auto) 0.1 0.0-0.4 03/25/2017 5:04am 03/25/2017 5:26am Basophils # (Auto) 0.0 0.0-0.1 03/25/2017 5:04am 03/25/2017 5:26am Absolute Immature Granulocyte (auto 0.03 x10e3/uL 0-0.1 03/25/2017 5: 04am 03/25/2017 5:26am Prothrombin Time 27.6 seconds H 11.9-14.5 03/24/2017 9:26am 03/24/2017 9 :46am Prothromb Time International Ratio 2.42 03/24/2017 9:26am 2017 9:46am Oral Anticoagulant Therapy INR Values: 1. Low Intensity Therapy 1.5 - 2.0 2. Moderate Intensity Therapy 2.0 - 3.0 3. High Intensity Therapy(1) 2.5 - 3.5 4. High Intensity Therapy(2) 3.0 - 4.0 5. Panic Value INR > 5.0 Urine Color STRAW YELLOW 03/23/2017 11:25pm 03/23/2017 11:50pm Urine Clarity CLOUDY H CLEAR 03/23/2017 11:pm 03/23/2017 11:50pm Urine Specific [place] 1.020 1.010-1.025 03/23/2017 11:25pm 2017 11:50pm Urine pH 5 5 - 7 03/23/2017 11:03/23/2017 11:50pm Urine Leukocyte Esterase 1+ H NEGATIVE 03/23/2017 11:25pm 03/23/2017 11:50pm Urine Nitrite NEGATIVE NEGATIVE 03/23/2017 11:pm 03/23/2017 11: 50pm Urine Protein 2+ H NEGATIVE 03/23/2017 11:pm 03/23/2017 11:50pm Urine Glucose (UA) 2+ H NEGATIVE 03/23/2017 11:25pm 03/23/2017 11: 50pm Urine Ketones TRACE H NEGATIVE 03/23/2017 11:03/23/2017 11:50pm Urine Urobilinogen 0.2 mg/dL 0.2 - 1 03/23/2017 11:25pm 03/23/2017 11: 50pm Urine Bilirubin NEGATIVE NEGATIVE 03/23/2017 11:2503/23/2017 11: 50pm Urine Blood 4+ H NEGATIVE 03/23/2017 11:03/23/2017 11:50pm Urine WBC >50 /HPF H 0-5 03/23/2017 11:25pm 03/23/2017 11:57pm Urine RBC >50 /HPF H 0-5 03/23/2017 11:2503/23/2017 11:57pm Urine Bacteria MODERATE /HPF H NONE 03/23/2017 11:25pm 03/23/2017 11: 57pm Urine Epithelial Cells FEW /LPF NONE 03/23/2017 11:25pm 03/23/2017 11: 57pm Urine Transitional Epithelial Cells MODERATE NONE 03/23/2017 11:25pm 03/23/2017 11:57pm Urine Mucus MODERATE H RARE 03/23/2017 11:25pm 03/23/2017 11:57pm Sodium Level 140 mmol/L 136-145 03/25/2017 5:04am 03/25/2017 5:43am Potassium Level 3.6 mmol/L 3.5-5.1 03/25/2017 5:04am 03/25/2017 5:43am Chloride Level 106 mmol/L 98-107 03/25/2017 5:04am 03/25/2017 5:43am Carbon Dioxide Level 23 mmol/L 22-29 03/25/2017 5:04am 03/25/2017 5: 43am Anion Gap 14.6 mmol/L 8-16 03/25/2017 5:04am 03/25/2017 5:43am Blood Urea Nitrogen 42 mg/dL H 7-26 03/25/2017 5:04am 03/25/2017 5:43am Creatinine 2.33 mg/dL H 0.72-1.25 03/25/2017 5:04am 03/25/2017 5:43am BUN/Creatinine Ratio 18 6-25 03/25/2017 5:04am 03/25/2017 5:43am Estimat Glomerular Filtration Rate 29 ML/MIN L 60- 03/25/2017 5:04am 5:43am Ranges were taken from the National Kidney Disease Education Program and the National Kidney Foundation literature. Reference ranges: 60 or greater: Normal 16-59 (for 3 consecutive months): Chronic kidney disease 15 or less: Kidney failure Glucose Level 130 mg/dL H 74-118 03/25/2017 5:04am 03/25/2017 5:43am Calcium Level 9.7 mg/dL 8.4-10.2 03/25/2017 5:04am 03/25/2017 5:43am Bedside Glucose 144 mg/dL H 70-120 03/24/2017 9:51pm 03/24/2017 9:59pm Meter ID: [id number] Total Bilirubin 0.5 mg/dL 0.2-1.2 03/25/2017 5:0403/25/2017 5:43am Aspartate Amino Transf (AST/SGOT) 15 IU/L 5-34 03/25/2017 5:042017 5:43am Alanine Aminotransferase (ALT/SGPT) 8 IU/L 0-55 03/25/2017 5:0403/25 5:43am Total Protein 5.9 g/dL L 6.5-8.1 03/25/2017 5:0403/25/2017 5:43am Albumin 3.4 g/dL L 3.5-5.0 03/25/2017 5:0403/25/2017 5:43am Globulin 2.5 g/dL 2.3-3.5 03/25/2017 5:03/25/2017 5:43am Albumin/Globulin Ratio 1.4 0.8-2.0 03/25/2017 5:03/25/2017 5: 43am Alkaline Phosphatase 45 IU/L 40-150 03/25/2017 5:03/25/2017 5: 43am Parathyroid Hormone 39 pg/mL 15-65 03/24/2017 9:03/25/2017 8:48pm Calcium (Send out) 10.0 mg/dL 8.6-10.2 03/24/2017 9:03/25/2017 8: 48pm Parathyroid Hormone Interpretation Comment . 03/24/2017 9:2017 8:48pm Interpretation Intact PTH Calcium (pg/mL) (mg/dL) Normal 15 - 65 8.6 - 10.2 Primary Hyperparathyroidism >65 >10.2 Secondary Hyperparathyroidism >65 <10.2 Non-Parathyroid Hypercalcemia <65 >10.2 Hypoparathyroidism <15 < 8.6 Non-Parathyroid Hypocalcemia 15 - 65 < 8.6 Performed at: - [facility] [id number] Actuarial Science Professor: Axel Willett MD, Phone: [phone] Performed at: [facility] [address] [id number] Actuarial Science Professor: Malik Martinez MD, Phone: [phone] Microbiology Results Procedure Source Organism/Result Collection Date/Time Result Date/Time Result Status Urine Culture Urine,Clean Catch ANGEL TROPICALIS 02/24/2017 4:40pm 02/27 8:07am Final Urine Culture Urine,Catheterized ESCHERICHIA COLI 03/23/2017 11:25pm 03/26 7:57am Final Procedures Procedure Status Date Provider(s) CT of abdomen and pelvis without contrast Active 01/14/17 ANGELIQUE PRO Computed tomography of brain without radiopaque contrast Active 02/09/17 PERTA DE LA CRUZ MD Ultrasound, renal Active 02/10/[address] of abdomen and pelvis without contrast Active 03/24/17 BE MEZA MD Ultrasound, renal Active 03/24/17 ANGELIQUE PRO Encounters Encounter Location Arrival/Admit Date Discharge/Depart Date Attending Provider Discharged Inpatient [facility] 03/24/17 2:39am 03/25/17 9:52am KALEB CHA MD Discharged Inpatient [facility] 02/23/17 5:22pm 02/26/17 10:00am KALEB CHA MD Discharged Inpatient (obs) [facility] 02/09/17 1:17pm 06/24 1:31pm KALEB CHA MD Discharged Inpatient [facility] 01/14/17 9:42am 01/19/17 2:35pm KALEB CHA MD Departed Emergency Room [facility] 11/05/16 8:23am 1:38pm PETRA DOWNING MD
[2017-04-23] MEDS ORDERED: HYOSCYAMINE 0.125 MG TAB PO ONE (12:15)
--- NOTE | 2017-04-23 12:36 | Diagnostic Imaging Report ---
PROCEDURE:X-RAY ABDOMEN - KUB COMPARISON:KUB 01/17/2017, abdominal CT 01/14/2017 INDICATIONS:ABDOMINAL PAIN, CONSTIPATION FINDINGS: BOWEL GAS PATTERN: Nonobstructive bowel gas pattern. Moderate amount of stool within the colon. Left lower quadrant colostomy is better seen on CT of 01/14/2017. CALCIFICATIONS: Diffuse vascular calcifications. Stable metallic densities overlying the pelvis which are noted within the [place]'s pouch on the prior CT. BONES/SOFT TISSUES: No acute findings. CONCLUSION: Nonobstructive bowel gas pattern. Dictated by: Lloyd Carney M.D. on 04/23/2017 at 12:36 Electronically approved by: Lloyd Carney M.D. on 04/23/2017 at 12:36
[2017-04-23] MEDS ORDERED: ONDANSETRON HCL INJ 2 MG/ML VIAL IV STA (12:51)
[2017-04-23] MEDS ORDERED: POLYETHYLENE GLYCOL 3350 17 GM PACK PO ONE (13:00)
[2017-04-23 13:07] LABS: BASOPHILS % 0.4 % (0.0-1.0); EOSINOPHILS % 0.6 % (0.0-6.0); HEMATOCRIT 36.2 % (38.2-49.6); HEMOGLOBIN 12.1 g/dL (14.0-18.0); LYMPHOCYTES # (AUTO) 1.1 (1.0-3.2); LYMPHOCYTES % 20.8 % (18.0-39.1); MEAN CORPUSCULAR HEMOGLOBIN 31.3 pg (28-32); MEAN CORPUSCULAR HGB CONC 33.4 g/dL (31-35); MEAN CORPUSCULAR VOLUME 93.5 fL (81-99); MONOCYTES # (AUTO) 0.5 (0.2-0.8); MONOCYTES % 9.2 % (4.4-11.3); NEUTROPHILS # (AUTO) 3.7 (2.1-6.9); NEUTROPHILS % 68.4 % (38.7-80.0); PLATELET COUNT 182 x10e3/uL (140-360); RED BLOOD COUNT 3.87 x10e6/uL (4.3-5.7); RED CELL DISTRIBUTION WIDTH 14.1 % (11.7-14.4)
[2017-04-23 13:23] LABS: BILIRUBIN,URINE NEGATIVE (NEGATIVE); COLOR,URINE YELLOW (YELLOW); KETONES,URINE NEGATIVE (NEGATIVE); LEUKOCYTE ESTERASE ,URINE TRACE (NEGATIVE); NITRITE,URINE NEGATIVE (NEGATIVE); URINE UROBILINOGEN 0.2 mg/dL (0.2 - 1)
[2017-04-23 13:28] LABS: ALBUMIN 4.3 g/dL (3.5-5.0); ALBUMIN/GLOBULIN RATIO 1.4 (0.8-2.0); ANION GAP 16.8 mmol/L (8-16); CALCIUM 9.8 mg/dL (8.4-10.2); CREATININE, SERUM 2.53 mg/dL (0.72-1.25); POTASSIUM 3.8 mmol/L (3.5-5.1)
[2017-04-23 13:40] LABS: CREATINE KINASE MB 3.3 ng/mL (0.00-5.00)
[2017-04-23 13:45] LABS: CLARITY,URINE HAZY (CLEAR); PROTEIN,URINE DIPSTICK 2+ (NEGATIVE)
[2017-04-23 13:46] LABS: BACTERIA,URINE FEW /HPF; EPITHELIAL CELLS,URINE FEW /LPF; MUCUS,URINE FEW (RARE); RBC,URINE 0-5 /HPF (0-5)
== END 2017-04-23 15:13 | disposition home or self-care (01) ==
LOC: ER 11:20
DX: R10.84 Generalized abdominal pain (principal); K59.00 Constipation, unspecified; Z93.3 Colostomy status; E11.22 Type 2 diabetes mellitus with diabetic chronic kidney disease; I12.0 Hypertensive chronic kidney disease with stage 5 chronic kidney disease or end stage renal disease; N18.6 End stage renal disease; Z79.4 Long term (current) use of insulin; Z94.0 Kidney transplant status; I48.91 Unspecified atrial fibrillation; Z79.01 Long term (current) use of anticoagulants; Z86.718 Personal history of other venous thrombosis and embolism; D64.9 Anemia, unspecified
CPT/HCPCS: 36415; 74018; 80053; 81001; 82550; 82553; 84484; 85025; 87086; 87186; 99284; J2405

== ENCOUNTER 2018-01-04 17:01 | Observation (INO) | payer OTHER ==
[~2018-01-04] VITALS: Ht 170.2 cm; Wt 102.5 kg
--- OUTSIDE RECORDS SUMMARY | 2018-01-04 17:04 | XMS REPORT | Clinical Summary ---
Author Author [facility] Address Unknown Phone Unavailable Care Team Providers Care Residential Finish Carpenter Name Role Phone Bam Mccarthy PCP Allergies No Known Allergies Medications End Date Status Medication Sig Dispensed Refills Start Date Active predniSONE (DELTASONE) 5 Take 5 mg by 0 MG tablet mouth daily . Active insulin aspart Inject 0 protamine-insulin aspart subcutaneousl (NOVOLOG MIX 70/30) 100 y 2 (two) unit/mL (70-30) injection times daily with breakfast and dinner 60 units in am and 40 units in pm . Active enoxaparin (LOVENOX) 30 Inject 90 mg 0 mg/0.3 mL Syrg subcutaneousl y daily. Active hydrALAZINE (APRESOLINE) Take 100 mg 0 100 MG tablet by mouth 3 (three) times daily. Active TORSEMIDE ORAL Take 60 mg by 0 mouth 2 (two) times daily. 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 US showed hydro s/p percutaneous drain. Nephrogram showed a distal stricture. The patient need to return to IR for dilation and internal stent placement, we will then consider capping the tube. HTN (hypertension) Last Assessment & Plan: Controlled with medication. DM (diabetes mellitus) Last Assessment & Plan: Controlled with medications. Hyperlipidemia Neuropathy CHF (congestive heart failure) Ischemic colitis Overview: of L colon and Rectum-by Bx 05/20/14 Immunizations Name Dates Previously Given Next Due Influenza TIV (IM) 07/12/2014 Family History Medical History Relation Name Comments Diabetes Brother Kidney disease Brother Diabetes Father Diabetes Mother Kidney disease Mother Diabetes Sister Kidney disease Sister Relation Name Status Comments Brother Alive Father Alive Mother Alive Sister Alive Social History Date Tobacco Use Types Packs/Day Years Used Quit: 01/20/1990 Former Smoker Smokeless Tobacco: Never Used Alcohol Use Drinks/Week oz/Week Comments No Sex Assigned at Date Recorded Not on file Industry Job Start Date Occupation Not on file Not on file Not on file Travel End Travel History Travel Start No recent travel history available. Last Filed Vital Signs Not on file Plan of Treatment Health Maintenance Due Date Last Done Comments INFLUENZA VACCINE 12/08/2017 Implants Device Identifier Shelf Expiration Date Model / Serial / Lot Implanted Type Area Manufactur er 09/06/2016 [id number] / [id number] Adhesion Barrier,Seprafilm 5x6 - Cement/Wong N/A: Abdomen GENZYME [id number] ler/Adhesi SURGICAL Implanted: Qty: 2 on 07/06/2014 by [employer] Amrit Elam MD 02/06/2017 4301- [id number] Adhesion Barrier,Seprafilm 5x6 - Cement/Wong N/A: Abdomen GENZYME [id number] ler/Adhesi SURGICAL Implanted: Qty: 1 on 01/31/2015 by [employer] Amrit Trimble MD [id number] / / Stent,Uret Polaris 5fr X 10cm - Uro Stent [employer] [id number] SCIENTIFIC Implanted: Qty: 1 on 05/24/2013 03/09/2016 [id number] / / [id number] Stent,Uret Polaris 5fr X 10cm - Uro Stent Right: Ureter [place] [id number] SCIENTIFIC Implanted: Qty: 1 on 01/21/2014 by Baljit Larson MD Results Not on fileafter 01/03/2017 Insurance Payer Benefit Subscriber ID Type Phone Address Plan / Group [facility] [facility] Advance Directives For more information, please contact: [facility] [address] [place] [address] Date Inactivated Comments Code Status Date Activated 02/01/2015 3:35 PM Full Code 01/31/2015 8:00 PM This code status was determined by: Patient 01/31/2015 8:00 PM Full Code 01/31/2015 10:18 AM This code status was determined by: Patient 12/28/2014 7:48 PM Full Code 12/28/2014 4:24 PM This code status was determined by: Patient 07/12/2014 4:32 PM Full Code 06/28/2014 4:39 PM This code status was determined by: Patient 12/22/2013 6:19 PM Full Code 12/09/2013 6:18 PM This code status was determined by: Patient
--- NOTE | 2018-01-04 18:11 | Diagnostic Imaging Report ---
Two view chest x-ray INDICATION: Weakness, shortness of breath, recent right shoulder surgery COMPARISON: Chest x-ray 12/23/2016. FINDINGS: Stable mild cardiomegaly. There is no evidence of hilar lymphadenopathy. The pulmonary vascular markings are normal. Minimal right basilar atelectasis. Left lung is clear. Vascular markings are normal.. Evaluation of the osseous structures demonstrates no focal abnormality. There are calcifications throughout the arterial structures of the lower neck and axilla. IMPRESSION: Minimal right basilar atelectasis. Signed by: Dr. Randi Tejeda MD on 01/04/2018 6:08 PM
[2018-01-04 19:02] LABS: BASOPHILS % 0.3 % (0.0-1.0); EOSINOPHILS % 0.3 % (0.0-6.0); HEMATOCRIT 32.1 % (38.2-49.6); HEMOGLOBIN 10.6 g/dL (14.0-18.0); LYMPHOCYTES # (AUTO) 1.1 (1.0-3.2); MEAN CORPUSCULAR HEMOGLOBIN 28.8 pg (28-32); MEAN CORPUSCULAR VOLUME 87.2 fL (81-99); MONOCYTES # (AUTO) 0.5 (0.2-0.8); MONOCYTES % 8.5 % (4.4-11.3); NEUTROPHILS # (AUTO) 4.4 (2.1-6.9); NEUTROPHILS % 72.2 % (38.7-80.0); PLATELET COUNT 314 x10e3/uL (140-360); RED BLOOD COUNT 3.68 x10e6/uL (4.3-5.7); RED CELL DISTRIBUTION WIDTH 13.5 % (11.7-14.4)
[2018-01-04] MEDS ORDERED: HYDRALAZINE HCL 20 MG/ML VIAL IV STA ×2 (19:05→19:13)
[2018-01-04] MEDS ORDERED: HYDRALAZINE HCL 20 MG/ML VIAL ONE (19:08)
[2018-01-04 19:12] LABS: CLARITY,URINE CLEAR (CLEAR); COLOR,URINE YELLOW (YELLOW); KETONES,URINE TRACE (NEGATIVE); LEUKOCYTE ESTERASE ,URINE 1+ (NEGATIVE); NITRITE,URINE NEGATIVE (NEGATIVE); PROTEIN,URINE DIPSTICK TRACE (NEGATIVE); URINE UROBILINOGEN 0.2 mg/dL (0.2 - 1)
[2018-01-04 19:13] LABS: BILIRUBIN,URINE NEGATIVE (NEGATIVE); INR 3.67; PROTHROMBIN TIME 38.9 seconds (11.9-14.5)
[2018-01-04 19:14] LABS: PARTIAL THROMBOPLASTIN TIME 64.2 seconds (23.8-35.5)
[2018-01-04 19:18] LABS: BACTERIA,URINE FEW /HPF; EPITHELIAL CELLS,URINE FEW /LPF; RBC,URINE 0-5 /HPF (0-5); TRANSITIONAL EPI CELLS,URINE FEW; WBC,URINE (MAN) 21-50 /HPF (0-5)
[2018-01-04 19:22] LABS: ALBUMIN 3.1 g/dL (3.5-5.0); ALBUMIN/GLOBULIN RATIO 0.9 (0.8-2.0); ANION GAP 18.7 mmol/L (8-16); CALCIUM 9.6 mg/dL (8.4-10.2); CREATININE, SERUM 2.18 mg/dL (0.72-1.25); POTASSIUM 3.7 mmol/L (3.5-5.1)
[2018-01-04 19:30] LABS: CREATINE KINASE MB 2.3 ng/mL (0-5.0)
[2018-01-04 19:38] LABS: B-TYPE NATRIURETIC PEPTIDE2 1674.5 pg/mL (0-100)
[2018-01-04] MEDS ORDERED: ONDANSETRON HCL INJ 2 MG/ML VIAL IV PRN (20:15)
[2018-01-04] MEDS ORDERED: SODIUM CHLORIDE FLUSH 10 ML SYR INJ PRN (20:15)
[2018-01-04] MEDS ORDERED: FUROSEMIDE INJ 10 MG/ML 4 ML VIAL IV ONE (20:15)
[2018-01-04] MEDS ORDERED: DEXTROSE 50% SYRINGE 50 ML IV PRN (20:15)
--- OUTSIDE RECORDS SUMMARY | 2018-01-04 20:15 | XMS REPORT | Clinical Summary ---
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 Assessment & Plan: Graft function [...] Type Area Manufactur er 09/06/2016 4301- / [id number] Adhesion Barrier,Seprafilm 5x6 - Cement/Wong N/A: Abdomen GENZYME [id number] ler/Adhesi SURGICAL Implanted: Qty: 2 on 07/06/2014 by [employer] Amrit Elam MD 02/06/2017 4301- [id number] Adhesion Barrier,Seprafilm 5x6 - Cement/Wong N/A: Abdomen GENZYME [id number] ler/Adhesi SURGICAL Implanted: Qty: 1 on 01/31/2015 by [employer] Amrit Trimble MD [id number] / / Stent,Uret Polaris 5fr X 10cm - Uro Stent [place] [id number] SCIENTIFIC Implanted: Qty: 1 on 05/24/2013 03/09/2016 [id number] / / [id number] Stent,Uret Polaris 5fr X 10cm - Uro Stent Right: Ureter [place] [id number] SCIENTIFIC Implanted: Qty: 1 on 01/21/2014 by Baljit Larson MD Results Not on fileafter 01/03/2017 Insurance Payer Benefit Subscriber ID Type Phone Address Plan / Group TEXAN[employer]US TEX[facility] [facility] Advance Directives For more information, please contact: [facility] [address] [place] [address] Date Inactivated Comments Code Status Date [...]
[2018-01-04] MEDS: CEFTRIAXONE SOD 1 GM VIAL IV SCH (20:20)
[2018-01-04 21:50] VITALS: BP 202/78
[2018-01-04 22:07] VITALS: BP 202/78
[2018-01-04] MEDS ORDERED: TACROLIMUS1 MG PO (22:52)
[2018-01-04] MEDS ORDERED: TRESIBA SQ (22:52)
[2018-01-04] MEDS ORDERED: GABAPENTIN300 MG PO (22:52)
[2018-01-04] MEDS ORDERED: ALLOPURINOL300 MG PO (23:06)
[2018-01-05] VITALS (8 sets, daily range): BP systolic 125–175; BP diastolic 60–93
[2018-01-05] MEDS: HYDRALAZINE HCL 25 MG TAB PO SCH ×4 (00:08→21:32)
[2018-01-05] MEDS: INSULIN REGULAR, HUMAN 100 UNIT/1 ML 3ML VIAL SQ SCH ×2 (00:09→07:30)
--- NOTE | 2018-01-05 00:17 | Diagnostic Imaging Report ---
EXAM: VENTILATION PERFUSION LUNG SCAN INDICATION: ^elevated D-Dimer/ SOB COMPARISON: Chest radiograph 01/04/2018 DISCUSSION: Xenon-133 gas 14 mCi was administered via inhalation. Dynamic images of the lungs in the posterior projection were obtained through single breath and washout phases. Distribution of tracer activity Is minimally irregular throughout the lungs. There is delayed focal washout in the right lower lobe suggestive of air trapping. Perfusion images of the lungs in multiple projections were obtained following intravenous administration of 6 mCi of Tc-99m MAA. Distribution of tracer Minimally irregular throughout the lungs. There are no segmental perfusion defects of any size. The perfusion images are well matched to the ventilation images. The cardiac silhouette is mildly enlarged. Images of the head and kidneys were obtained and show no intracranial or renal parenchyma accumulation of tracer. IMPRESSION: Scan findings represent a LOW probability for acute pulmonary embolic disease based on the PIOPED II criteria. Signed by: Dr Reina Jarrett MD on 01/05/2018 12:14 AM
[2018-01-05 03:15] LABS: CREATINE KINASE MB 1.4 ng/mL (0-5.0)
[2018-01-05 05:44] LABS: CREATINE KINASE MB 1.4 ng/mL (0-5.0)
[2018-01-05 06:05] LABS: ALBUMIN 2.8 g/dL (3.5-5.0); ANION GAP 14.8 mmol/L (8-16); CALCIUM 9.3 mg/dL (8.4-10.2); CREATININE, SERUM 2.17 mg/dL (0.72-1.25); POTASSIUM 3.8 mmol/L (3.5-5.1)
--- NOTE | 2018-01-05 06:45 | Diagnostic Imaging Report ---
CHEST SINGLE (PORTABLE), 01/05/2018 7:00 AM Technique: CHEST SINGLE (PORTABLE) Comparison: Previous day Clinical history: Shortness of breath Findings: See Impression Impression: 1. Stable mild cardiomegaly. Aortic calcifications. 2. Minimal bibasilar vascular crowding/atelectasis. No edema. 3. No effusion or pneumothorax. Signed by: Dr Reina Jarrett MD on 01/05/2018 6:41 AM
[2018-01-05 07:32] LABS: BASOPHILS % 0.4 % (0.0-1.0); EOSINOPHILS # (AUTO) 0.1 (0.0-0.4); EOSINOPHILS % 1.4 % (0.0-6.0); HEMATOCRIT 30.9 % (38.2-49.6); LYMPHOCYTES # (AUTO) 1.3 (1.0-3.2); LYMPHOCYTES % 18.5 % (18.0-39.1); MEAN CORPUSCULAR HEMOGLOBIN 28.7 pg (28-32); MEAN CORPUSCULAR HGB CONC 31.7 g/dL (31-35); MEAN CORPUSCULAR VOLUME 90.6 fL (81-99); MONOCYTES # (AUTO) 0.9 (0.2-0.8); MONOCYTES % 12.7 % (4.4-11.3); NEUTROPHILS # (AUTO) 4.7 (2.1-6.9); NEUTROPHILS % 66.2 % (38.7-80.0); PLATELET COUNT 299 x10e3/uL (140-360); RED BLOOD COUNT 3.41 x10e6/uL (4.3-5.7); RED CELL DISTRIBUTION WIDTH 13.8 % (11.7-14.4)
[2018-01-05 07:39] LABS: HEMOGLOBIN 9.8 g/dL (14.0-18.0)
[2018-01-05] MEDS ORDERED: CALCITRIOL 0.25 MCG CAP PO SCH (08:45)
[2018-01-05] MEDS ORDERED: HYDRALAZINE HCL 25 MG TAB PO PRN (08:45)
[2018-01-05] MEDS ORDERED: WARFARIN SOD 1 MG TAB PO SCH (08:45)
[2018-01-05] MEDS ORDERED: METOPROLOL SUCCINATE 25 MG TAB XL PO PRN (08:45)
[2018-01-05] MEDS ORDERED: FUROSEMIDE 40 MG TAB PO SCH (09:00)
[2018-01-05] MEDS ORDERED: GLIPIZIDE 10 MG PO SCH (09:00)
[2018-01-05] MEDS ORDERED: TACROLIMUS 1 MG CAP PO SCH (09:00)
[2018-01-05] MEDS ORDERED: WARFARIN SOD 2 MG TAB PO SCH ×2 (09:00→17:00)
[2018-01-05] MEDS ORDERED: DEXTROSE 50% SYRINGE 50 ML IV PRN (09:15)
[2018-01-05] MEDS: GLIPIZIDE 5 MG TAB ER PO SCH (09:22)
[2018-01-05] MEDS: ALLOPURINOL 300 MG TAB PO SCH (09:24)
[2018-01-05] MEDS: CALCITRIOL 0.25 MCG CAP PO SCH (09:24)
[2018-01-05] MEDS: HYDROCODONE/APAP 5MG-325MG TAB PO PRN ×3 (09:24→21:35)
[2018-01-05] MEDS: ALPRAZOLAM 0.5 MG TAB PO SCH (09:24)
[2018-01-05] MEDS: TACROLIMUS 1 MG CAP PO SCH ×2 (09:24→17:09)
[2018-01-05] MEDS: PREDNISONE 5 MG TAB PO SCH (09:24)
[2018-01-05] MEDS: GABAPENTIN 300 MG CAP PO SCH ×2 (09:24→17:09)
[2018-01-05] MEDS: AMIODARONE HCL 200 MG TAB PO SCH (09:25)
[2018-01-05] MEDS ORDERED: FEOSOL325 MG PO (09:35)
--- NOTE | 2018-01-05 09:54 | History and Physical ---
PRIMARY CARE PROVIDER: Dr. Pranay Calderón METAL TANK ERECTOR: Dr. Kwabena Barreto CHIEF COMPLAINT: Shortness of breath. HISTORY: A 62-year-old male had atrial fibrillation on anticoagulant therapy, therapeutic INR of 3.6. The patient also has chronic kidney disease came in with urinary tract infection. More importantly, he just recently had left shoulder surgery and complained of pain. Patient's pain may cause the patient's shortness of breath, but he denied that. Patient stated he had shortness of breath. 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 Chest x-ray otherwise unremarkable. Patient's V/Q scan is low probability. No PE. The patient still complains of shortness of breath, but otherwise stable. He seems to be depressed, however. PAST MEDICAL HISTORY: Multiple including history of kidney transplant, chronic kidney disease, hypertension, dyslipidemia, diabetes, type 2, on oral medication and insulin, atrial fibrillation, major depression. SOCIAL HISTORY: Patient does not smoke or use alcohol. No recreational drugs. ALLERGIES: NO KNOWN ALLERGIES. HOME MEDICATIONS: List reviewed. REVIEW OF SYSTEMS: As mentioned. Seems depressed, shortness of breath, but comfortable. Saturation is unremarkably stable and normal. PHYSICAL EXAMINATION VITAL SIGNS: Temperature is 98, blood pressure 175/71, pulse rate 93, respirations 18. GENERAL: Patient seems depressed and not in any distress. HEENT: Normocephalic, atraumatic and anicteric. NECK: Supple grossly. PULMONARY: Clear. CARDIOVASCULAR: Irregularly rate and rhythm. ABDOMEN: Soft. Colostomy. EXTREMITIES: Status post left shoulder rotator cuff surgery. NEUROLOGIC: No focal deficit. LABORATORY: Sodium is 140, potassium 3.8, chloride 100, bicarb 29, BUN 61, creatinine 2.2, glucose 104. WBC 7.1, hemoglobin 9.8, hematocrit 30.9, and platelets 299,000. IMPRESSION 1. Shortness of breath, etiology unclear. 2. Urinary tract infection. 3. Multiple chronic baseline problems. PLAN: Continue with antibiotics. Resume home medications. Pain control. Will get a CT of the chest without contrast and CT of the abdomen and pelvis without contrast. The patient is stable in observation for now. Job#: [id number] [place]
[2018-01-05] MEDS: INSULIN LISPRO 100 UNIT/1 ML 3ML VIAL SQ SCH ×3 (11:30→21:32)
[2018-01-05] MEDS ORDERED: NON-FORMULARY MEDICATION (Metoclopramide Hcl (Reglan) 5 MG) PO SCH (11:30)
[2018-01-05] MEDS: METOCLOPRAMIDE HCL 10 MG TAB PO SCH ×4 (12:00→21:32)
[2018-01-05] MEDS ORDERED: METHYLPREDNISOLONE SOD SUCC 40 MG/ML VIAL IV STA (12:26)
--- NOTE | 2018-01-05 13:16 | Consultation ---
DATE OF CONSULTATION: January 05, 2018 RENAL CONSULTATION HISTORY OF PRESENT ILLNESS: Mr. Sterling Rios is known to our nephrology service. He is a 62-year-old gentleman with history of type 2 diabetes with end-organ damage including chronic kidney disease, who had a cadaveric renal transplant in 2013. Maintained on Prograf 2 mg twice a day and prednisone 5 mg once a day. Renal has been consulted for management of underlying kidney failure. Baseline serum creatinine is around 2.8. He has been complaining of right ankle pain. He claims he probably has gout. Has significant history of atrial fibrillation, prior TIA, urinary tract infection, history of hypertension, type 2 diabetes. So far urine culture pending. Laboratory test shows white count 7.14. Hemoglobin 9.8. Sodium 140. Potassium 3.8. Bicarbonate 29. BUN 61. Creatinine 2.17. SOCIAL HISTORY: Does not smoke or drink. ALLERGIES: NO APPARENT DRUG ALLERGIES. CURRENT MEDICATIONS: Patient is on Prograf 2 mg p.o. b.i.d., warfarin 2 mg daily, prednisone 5 mg daily. He is on metoprolol 25 mg p.o. b.i.d., insulin, hydralazine p.r.n., hydralazine 100 mg p.o. t.i.d. as well, Lasix 40 mg twice a day which I am going to stop at this point in time, calcitriol/Rocaltrol 0.5 mg once a day. He is on alprazolam and allopurinol 300 mg p.o. daily. PHYSICAL EXAMINATION: GENERAL: Awake, alert, lying supine. No apparent distress. VITALS: Blood pressure of 175/71 pulse rate 92, afebrile, respiratory 17, oxygen saturation 98%. HEAD AND NECK: Cornea clear. Oral mucosa moist. LUNGS: Harsh vesicular breath sounds. Relatively clear. HEART: S1, S2 audible. ABDOMEN: Soft, nontender. LOWER EXTREMITY EXAMINATION: Shows right-sided ankle swelling. Left side, no edema. IMPRESSION: 1. Cadaveric renal transplant. 2. Immunosuppression. 3. Chronic kidney disease stage 3. 4. Chronic allograft nephropathy. 5. Underlying hypertension. 6. Possible gout. Will hold off on Lasix. Obtain stat uric acid level. Dose with 1 dose of Solu-Medrol 60 mg IV stat. Monitor patient's kidney function and urine output with you. Immunosuppressive medications noted. Discussed with CHANEL. Discussed with patient. Job#: [id number] [place]
--- NOTE | 2018-01-05 13:24 | Diagnostic Imaging Report ---
EXAM: CT Abdomen and Pelvis WITHOUT contrast INDICATION: Pain COMPARISON: CT Abdomen/Pelvis 03/24/2017. TECHNIQUE: Abdomen and pelvis were scanned utilizing a multidetector helical scanner from the lung base to the pubic symphysis without administration of IV contrast. Absence of intravenous contrast decreases sensitivity for detection of focal lesions and vascular pathology. Coronal and sagittal reformations were obtained. Routine protocol was performed. IV CONTRAST: None. ORAL CONTRAST: Water FINDINGS: LINES and TUBES: None. LOWER THORAX: Please refer to the concurrently performed chest CT. LIVER: No evidence of mass or biliary ductal dilatation. Gallbladder is unremarkable. SPLEEN: No masses PANCREAS: Pancreatic atrophy ADRENALS: No nodules RIGHT KIDNEY: No nephroureterolithiasis or hydronephrosis. Cortical thinning. Extensive renal vascular calcifications. LEFT KIDNEY: No nephroureterolithiasis or hydronephrosis. Cortical thinning. Extensive renal vascular calcifications. There is a right renal transplant. Unchanged nonspecific stranding around the transplanted ureter. Interval resolution of air in the inferior pole calyces and ureter. GI TRACT: Left colectomy with right lower quadrant colostomy. No bowel obstruction. There is a right anterolateral abdominal wall incisional hernia which contains fat. The hernia now contains loops of small bowel, new since the prior study, without evidence of obstruction or incarceration. VESSELS: Extensive atherosclerotic changes of the abdominal aorta without aneurysm. Infrarenal inferior vena cava filter. PERITONEUM/RETROPERITONEUM: No free air or fluid LYMPH NODES: No lymphadenopathy REPRODUCTIVE ORGANS: Normal BLADDER: Unremarkable. BONES: No suspicious bone lesions. IMPRESSION: Left lower quadrant colostomy. No evidence of bowel obstruction. Right anterolateral abdominal wall incisional hernia. Small bowel loops now are within the hernia, new since the prior study, without evidence of obstruction or incarceration. Right pelvic renal transplant without hydronephrosis. Unchanged nonspecific mild amount of stranding around the transplant ureter. Signed by: Dr. Oni Chavez MD on 01/05/2018 1:20 PM
--- NOTE | 2018-01-05 13:31 | Diagnostic Imaging Report ---
EXAM: CT Chest without contrast INDICATION: Shortness of breath. COMPARISON: None TECHNIQUE: Chest was scanned utilizing a multidetector helical scanner from the lung apex through the level of the adrenal glands without administration of IV contrast. Coronal and sagittal reformations were obtained. Routine protocol was performed. RADIATION DOSE: Total DLP: 1016.3 mGy*cm Estimated effective dose: (DLP x 0.014 x size factor) mSv COMPLICATIONS: None FINDINGS: LINES/ TUBES: None. LUNGS AND AIRWAYS: The central airways are patent. Patchy dependent atelectasis at the lung bases. There is a calcified granuloma in the right lower lobe. PLEURA: The pleural spaces are clear. HEART AND MEDIASTINUM: The thyroid gland is normal. No mediastinal, hilar or axillary lymphadenopathy. There is no pericardial effusion. Left atrial enlargement measuring up to 4.6 cm. Extensive coronary and aortic atherosclerosis. UPPER ABDOMEN: Please refer to the concurrently performed abdominal CT. BONES: No acute bony abnormality. SOFT TISSUES: Unremarkable. IMPRESSION: No acute intrathoracic abnormality. Extensive coronary and aortic atherosclerosis. Signed by: Dr. Oni Chavez MD on 01/05/2018 1:28 PM
[2018-01-05 14:02] LABS: CREATINE KINASE MB 1.7 ng/mL (0-5.0)
[2018-01-05] MEDS: CEFTRIAXONE SOD 1 GM VIAL IV SCH (21:32)
[2018-01-06 00:24] VITALS: BP 167/68
[2018-01-06 05:00] VITALS: BP 179/107
[2018-01-06 05:45] LABS: INR 3.77; PROTHROMBIN TIME 39.8 seconds (11.9-14.5)
[2018-01-06 05:57] LABS: ALBUMIN 2.8 g/dL (3.5-5.0); ALBUMIN/GLOBULIN RATIO 0.9 (0.8-2.0); ANION GAP 16.4 mmol/L (8-16); CREATININE, SERUM 2.69 mg/dL (0.72-1.25); POTASSIUM 4.4 mmol/L (3.5-5.1)
[2018-01-06] MEDS: METOCLOPRAMIDE HCL 10 MG TAB PO SCH (08:00)
[2018-01-06] MEDS: INSULIN LISPRO 100 UNIT/1 ML 3ML VIAL SQ SCH (08:00)
[2018-01-06] MEDS: GABAPENTIN 300 MG CAP PO SCH (08:30)
[2018-01-06] MEDS: TACROLIMUS 1 MG CAP PO SCH (08:30)
[2018-01-06] MEDS: AMIODARONE HCL 200 MG TAB PO SCH (08:30)
[2018-01-06] MEDS: HYDRALAZINE HCL 25 MG TAB PO SCH (08:30)
[2018-01-06] MEDS: GLIPIZIDE 5 MG TAB ER PO SCH (08:30)
[2018-01-06] MEDS: ALPRAZOLAM 0.5 MG TAB PO SCH (08:30)
[2018-01-06] MEDS: ALLOPURINOL 300 MG TAB PO SCH (08:30)
[2018-01-06] MEDS: PREDNISONE 5 MG TAB PO SCH (08:30)
[2018-01-06] MEDS: CALCITRIOL 0.25 MCG CAP PO SCH (08:30)
[2018-01-06 08:34] VITALS: BP 191/76
[2018-01-06 09:00] VITALS: BP 170/73
--- NOTE | 2018-01-06 10:21 | Discharge Summary ---
The patient was in observation. PRIMARY CARE PHYSICIAN: Dr. Pranay Calderón CARPET FINISHING SUPERVISOR: Dr. Collins Kim FINAL DIAGNOSES 1. Shortness of breath, most likely disease process deconditioning. 2. Multiple baseline problems, including uncontrolled diabetes, noncompliant, cardiomyopathy, history of renal transplant, colostomy, atrial fibrillation, anticoagulant therapy. A 62-year-old male came in and was therapeutic on INR. Patient complained of increasing shortness of breath. V/Q scan was negative for PE. Patient also had a CT of the chest, abdomen and pelvis without IV contrast and showed there is no significant abnormality or any changes from previous. Patient stable. He is not short of breath at rest. He is only short of breath when he is exertional. The patient has multiple chronic disease. The patient may have deconditioning process. Otherwise, the patient is stable and discharged home today. Follow up with his family doctor, Dr. Calderón, in approximately [address] Moreno, his log chain feeder, if persistently short of breath. The patient is stable. Discussed with the patient at length. Job#: [id number] SYDNI
[2018-01-06 10:22] VITALS: BP 150/70
== END 2018-01-06 10:52 | disposition home or self-care (01) ==
LOC: ER 17:01 → ERHOLD 20:13 → IMCU 21:39
PROVIDERS: ADMIT Internal Medicine; ATTEND Internal Medicine
DX: E11.22 Type 2 diabetes mellitus with diabetic chronic kidney disease (principal); R06.02 Shortness of breath; I12.9 Hypertensive chronic kidney disease with stage 1 through stage 4 chronic kidney disease, or unspecified chronic kidney disease; N18.3 Chronic kidney disease, stage 3 (moderate); Z94.0 Kidney transplant status; E78.5 Hyperlipidemia, unspecified; Z93.3 Colostomy status; Z82.49 Family history of ischemic heart disease and other diseases of the circulatory system; Z79.01 Long term (current) use of anticoagulants; Z79.4 Long term (current) use of insulin; N39.0 Urinary tract infection, site not specified; E11.65 Type 2 diabetes mellitus with hyperglycemia; Z91.19 Patient's noncompliance with other medical treatment and regimen
CPT/HCPCS: 36415 ×2; 71045; 71046; 71250; 74176; 78582; 80053 ×3; 81001; 82550 ×2; 82553 ×2; 82948 ×3; 83605; 83880; 84484 ×2; 84550; 85025 ×2; 85379; 85610 ×2; 85730; 87086; 87400; 93005; 93306; 99284; G0378 ×3; J0360; J0696 ×2; J1940; J2920; J7507 ×2; J7512 ×2

== ENCOUNTER 2018-02-23 13:13 | Inpatient (IN) | payer OTHER ==
[~2018-02-23] VITALS: Ht 170.2 cm; Wt 99.8 kg
[~2018-02-23 13:13] MED LIST changes: +ALLOPURINOL300 MG PO; +FEOSOL325 MG PO; +GABAPENTIN300 MG PO; +TACROLIMUS1 MG PO; +TRESIBA SQ
--- OUTSIDE RECORDS SUMMARY | 2018-02-23 13:16 | XMS REPORT | Clinical Summary ---
Author Author DEVIN [facility] Address Unknown Phone Unavailable Care Team Providers Care Rotary Adjuster Name Role Phone Bam Mccarthy PCP Allergies [...] post kidney transplant 06/01/2013 Overview: ICD9 DX Internal Medicine Veterinary Technician L ast Assessment & Plan: Graft function [...] Type Area Manufactur er 09/06/2016 4301- / [id number] Adhesion Barrier,Seprafilm 5x6 - Cement/Wong N/A: Abdomen GENZYME [id number] ler/Adhesi SURGICAL Implanted: Qty: 2 on 07/06/2014 by [employer] Amrit Elam MD 02/06/2017 [id number] Adhesion Barrier,Seprafilm 5x6 - Cement/Wong N/A: Abdomen GENZYME [id number] ler/Adhesi SURGICAL Implanted: Qty: 1 on 01/31/2015 by [employer] Amrit Trimble MD [id number] / / Stent,Uret Polaris 5fr X 10cm - Uro Stent [place] [id number] SCIENTIFIC Implanted: Qty: 1 on 05/24/2013 03/09/2016 [id number] / / [id number] Stent,Uret Polaris 5fr X 10cm - Uro Stent Right: Ureter [place] [id number] SCIENTIFIC Implanted: Qty: 1 on 01/21/2014 by Baljit Larson MD Results Not on fileafter 02/22/2017 Insurance Payer Benefit Subscriber ID Type Phone Address Plan / Group TEXAN[employer] TEXAN[employer]US [facility] Advance Directives For more information, please contact: [facility] [address] [place] [phone] Date Inactivated Comments Code Status Date [...]
[2018-02-23 15:49] LABS: BASOPHILS # (AUTO) 0.1 (0.0-0.1); BASOPHILS % 0.6 % (0.0-1.0); EOSINOPHILS # (AUTO) 0.3 (0.0-0.4); EOSINOPHILS % 2.9 % (0.0-6.0); HEMATOCRIT 27.3 % (38.2-49.6); HEMOGLOBIN 8.9 g/dL (14.0-18.0); LYMPHOCYTES # (AUTO) 1.1 (1.0-3.2); LYMPHOCYTES % 12.4 % (18.0-39.1); MEAN CORPUSCULAR HEMOGLOBIN 29.3 pg (28-32); MEAN CORPUSCULAR HGB CONC 32.6 g/dL (31-35); MEAN CORPUSCULAR VOLUME 89.8 fL (81-99); MONOCYTES # (AUTO) 0.7 (0.2-0.8); MONOCYTES % 7.6 % (4.4-11.3); NEUTROPHILS # (AUTO) 6.9 (2.1-6.9); NEUTROPHILS % 75.7 % (38.7-80.0); PLATELET COUNT 286 x10e3/uL (140-360); RED BLOOD COUNT 3.04 x10e6/uL (4.3-5.7); RED CELL DISTRIBUTION WIDTH 15.8 % (11.7-14.4)
[2018-02-23 15:54] LABS: INR 3.11; PROTHROMBIN TIME 34.2 seconds (11.9-14.5)
[2018-02-23 15:55] LABS: PARTIAL THROMBOPLASTIN TIME 48.9 seconds (23.8-35.5)
[2018-02-23 16:00] LABS: ALBUMIN 3.1 g/dL (3.5-5.0); ANION GAP 16.2 mmol/L (8-16); CALCIUM 8.8 mg/dL (8.4-10.2); CREATININE, SERUM 2.19 mg/dL (0.72-1.25); POTASSIUM 3.2 mmol/L (3.5-5.1)
--- NOTE | 2018-02-23 16:05 | Diagnostic Imaging Report ---
EXAM: XR CHEST 1 VIEW DATE: 02/23/2018 2:54 PM INDICATION: Shortness of breath COMPARISON: CT chest 01/05/2018, no report available FINDINGS: Lines and Tubes: None Heart and Mediastinum: Accentuated by lung volumes. Prominent. Mild aortic vascular calcifications. Lungs and Pleura: Elevation right hemidiaphragm with minimal bibasilar opacities. Bones and Soft Tissues: No acute findings. IMPRESSION: 1. Probable basilar atelectasis. Signed by: Dr. Jason Padilla MD on 02/23/2018 4:02 PM
[2018-02-23 16:12] LABS: CHOL/HDL RATIO 3.6 (3.9-4.7)
[2018-02-23] MEDS ORDERED: SODIUM CHLORIDE 0.9% 1000ML 1,000 ML IV STA (16:17)
[2018-02-23 16:20] LABS: B-TYPE NATRIURETIC PEPTIDE2 1827.7 pg/mL (0-100)
[2018-02-23] MEDS ORDERED: DIATRIZOATE MEGL/DIATRIZOA SOD 30 ML BTL PO ONE (16:27)
[2018-02-23] MEDS: HYDROCODONE/APAP 7.5MG-325MG 1 EA TAB PO PRN (16:50)
[2018-02-23 17:02] LABS: BILIRUBIN,URINE NEGATIVE (NEGATIVE); CLARITY,URINE SL CLOUDY (CLEAR); COLOR,URINE YELLOW (YELLOW); KETONES,URINE NEGATIVE (NEGATIVE); LEUKOCYTE ESTERASE ,URINE TRACE (NEGATIVE); NITRITE,URINE NEGATIVE (NEGATIVE); PROTEIN,URINE DIPSTICK NEGATIVE (NEGATIVE); URINE UROBILINOGEN 0.2 mg/dL (0.2 - 1)
--- NOTE | 2018-02-23 17:10 | NUR ---
PT TO CT
[2018-02-23 17:19] LABS: EPITHELIAL CELLS,URINE FEW /LPF
[2018-02-23 17:20] LABS: YEAST,URINE MODERATE
--- NOTE | 2018-02-23 17:41 | Diagnostic Imaging Report ---
CT Abdomen And Pelvis Without IV Contrast INDICATION: Abdominal pain, pelvis after fall, evaluate for splenic injury TECHNIQUE: 5 mm collimation axial images obtained from the diaphragm to the level of the pubic symphysis without nonionic intravenous contrast. Oral contrast was administered. RADIATION DOSE: Total DLP: 877.6 mGy*cm Estimated effective dose: (DLP x 0.015 x size factor) mSv CTDIvol has been reviewed. It is below the limits set by the Radiation Protocol Committee (RPC). Dose reduction techniques used: Automated exposure control, adjustment of the mAs and/or kVp according to patient size, standardized low-dose protocol, and/or iterative reconstruction technique. COMPARISON: CT abdomen/pelvis 01/05/2018. ABDOMEN FINDINGS: Lung Bases: Calcified granuloma in the posterior right lower lobe is stable. Posterior layering left pleural effusion measures 2.0 cm. The attenuation is -7 Hounsfield units. No pneumothorax. The heart is mildly enlarged with heavy calcifications of the coronary arteries. Liver: Punctate calcification in the posterior dome is stable. There are calcifications throughout the hepatic arteries. No perinephric collimation. Gallbladder: Present and appears normal. No ductal dilatation. Pancreas: Diffuse fatty atrophy. No mass or ductal dilatation. Spleen: Normal size. No perisplenic inflammation. Adrenal Glands: No evidence for mass. Kidneys: Right Kidney: Atrophic with calcifications throughout the hilar vessels. No perinephric inflammation, hydronephrosis, or mass. Left Kidney: Atrophic with calcifications throughout the hilar vessels. No perinephric inflammation, hydronephrosis, or mass. Renal transplant: Located in the right iliac fossa without surrounding fluid collection. No evidence of hydronephrosis or calculus. There is persistent soft tissue inflammation surrounding the proximal ureter Lymph Nodes: No enlarged abdominal or retroperitoneal lymph nodes. Aorta: Diffusely calcified but not aneurysmally dilated. There are extensive calcifications throughout the visceral arteries. IVC: Contains a filter with the tip inferior to the confluence of the renal veins. This is stable. Peritoneum/retroperitoneum: No free fluid or fluid collection. PELVIS FINDINGS: Bowel: Stomach: Distended with enteric contrast and normal in morphology. Small Bowel: Contains enteric contrast and is normal in diameter with normal wall thickness. Large Bowel: Moderate burden of stool in the right colon. There is a stable left lower quadrant colostomy without parastomal hernia. No large bowel dilatation or mural thickening. Appendix: Not visualized and may be absent or collapsed. Bladder: Under distended but otherwise normal. Trace amount of presacral edema. No loculated fluid collection. Bones: There are nondisplaced fractures of the left posterior ribs numbers 9 through 11. No evidence of right rib fractures. No diastases of the pubic symphysis or sacroiliac joints. The hips are intact and are normally aligned. Vertebral body heights are symmetric in height and in normal alignment. Mild degenerative changes are present from L3-4 to L5-S1. A bone island in the lateral left fifth rib is stable. Soft tissues: Incisional hernia in the right lateral abdominal wall has an aperture of 4.3 cm and contains several loops of small bowel. No fluid in the hernia sac. This is stable. No evidence of intramuscular hematoma. There is mild left gynecomastia. IMPRESSION: 1. Nondisplaced left posterior rib fractures with associated left pleural effusion/hemothorax. No evidence of pneumothorax. 2. Compromised examination given the lack of intravenous contrast to identify injury to the abdomen or pelvis. There are no secondary signs of solid or hollow organ injury in the abdomen or pelvis, however. 3. Stable postoperative changes of the bowel. No evidence of bowel obstruction. Stable right incisional hernia containing small bowel. 4. Stable right renal transplant with inflammation surrounding the proximal ureter. Signed by: Dr. Randi Tejeda MD on 02/23/2018 5:38 PM
[2018-02-23] MEDS ORDERED: ONDANSETRON HCL INJ 2MG/ML 2ML 2 MG/ML VIAL IV PRN (18:15)
[2018-02-23] MEDS ORDERED: SODIUM CHLORIDE FLUSH 10 ML SYR INJ PRN (18:15)
[2018-02-23] MEDS ORDERED: BISACODYL 5 MG TAB EC PO PRN (18:15)
[2018-02-23] MEDS ORDERED: DEXTROSE 50% SYRINGE 50 ML IV PRN (18:15)
--- OUTSIDE RECORDS SUMMARY | 2018-02-23 18:21 | XMS REPORT | Clinical Summary ---
Author Author DEVIN [facility] Address Unknown Phone Unavailable Care Team Providers Care Associate Professor Physician Name Role Phone Bam Mccarthy PCP Allergies [...] post kidney transplant 06/01/2013 Overview: ICD9 DX Dental Laboratory Technician Apprentice L ast Assessment & Plan: Graft function [...] Type Area Manufactur er 09/06/2016 4301- / [id number] Adhesion Barrier,Seprafilm 5x6 - Cement/Wong N/A: Abdomen GENZYME [id number] ler/Adhesi SURGICAL Implanted: Qty: 2 on 07/06/2014 by [employer] Amrit Elam MD 02/06/2017 4301- [id number] Adhesion Barrier,Seprafilm 5x6 - Cement/Wong N/A: Abdomen GENZYME [id number] ler/Adhesi SURGICAL Implanted: Qty: 1 on 01/31/2015 by [employer] Amrit Trimble MD [id number] / / Stent,Uret Polaris 5fr X 10cm - Uro Stent [place] [id number] SCIENTIFIC Implanted: Qty: 1 on 05/24/2013 03/09/2016 [id number] / / [id number] Stent,Uret Polaris 5fr X 10cm - Uro Stent Right: Ureter [place] [id number] SCIENTIFIC Implanted: Qty: 1 on 01/21/2014 by Baljit Larson MD Results Not on fileafter 02/22/2017 Insurance Payer Benefit Subscriber ID Type Phone Address Plan / Group TEXANPLUS TEXAN[employer]US xxxxxxxxx [facility] Advance Directives For more information, please contact: [facility] [address] [place] [phone] Date Inactivated Comments Code Status Date [...]
--- NOTE | 2018-02-23 19:10 | NUR ---
Note milton in [facility] - 02/23/18 at 1911 by SHAYNE REPORT AND PATIENT CARE ENDORSED TO DONI Addendum: 02/23/18 at 1911 by SHAYNE Amendment milton in [facility] - 02/23/18 at 1911 by SHAYNE REPORT AND PATIENT CARE ENDORSED TO RICK BUCHANAN
--- NOTE | 2018-02-23 19:12 | NUR ---
REPORT AND PATIENT CARE ENDORSED TO RICK BUCHANAN
[2018-02-23] MEDS: ERTAPENEM 1GM/NS 100ML 100 ML IV SCH (21:26)
--- NOTE | 2018-02-23 21:35 | NUR ---
REPORT CALLED TO RN ROOM 285.
[2018-02-23 22:20] VITALS: BP 136/86
--- NOTE | 2018-02-23 22:30 | NUR ---
PT IS TRANSFERRED FROM ER .PT IS AOX3 .WALKS WITH CANE PT HAS RT FOOT ULCER .RESPIRATIONS ARE EVEN AND UNLABORED.RT FOOT WITH DRESSING .PT HAS COLOSTOMY BAG AND LEFT ARM AV GRAFT .RT HAND 20 G S/L.SKIN WARM AN DRY .CALL LIGHT WITH IN REACH .CONTINUE TO MONITOR
[2018-02-23] MEDS: INSULIN LISPRO 100 UNIT/1 ML 3ML VIAL SQ SCH (23:00)
[2018-02-24] VITALS (9 sets, daily range): BP systolic 132–194; BP diastolic 66–87
[2018-02-24 05:32] LABS: BASOPHILS # (AUTO) 0.1 (0.0-0.1); BASOPHILS % 0.8 % (0.0-1.0); EOSINOPHILS # (AUTO) 0.4 (0.0-0.4); EOSINOPHILS % 5.5 % (0.0-6.0); HEMATOCRIT 24.9 % (38.2-49.6); LYMPHOCYTES # (AUTO) 1.1 (1.0-3.2); LYMPHOCYTES % 14.8 % (18.0-39.1); MEAN CORPUSCULAR HEMOGLOBIN 28.9 pg (28-32); MEAN CORPUSCULAR HGB CONC 32.1 g/dL (31-35); MEAN CORPUSCULAR VOLUME 89.9 fL (81-99); MONOCYTES # (AUTO) 0.7 (0.2-0.8); MONOCYTES % 8.6 % (4.4-11.3); NEUTROPHILS # (AUTO) 5.4 (2.1-6.9); NEUTROPHILS % 69.6 % (38.7-80.0); PLATELET COUNT 260 x10e3/uL (140-360); RED BLOOD COUNT 2.77 x10e6/uL (4.3-5.7); RED CELL DISTRIBUTION WIDTH 15.9 % (11.7-14.4)
[2018-02-24 05:50] LABS: ALBUMIN 2.7 g/dL (3.5-5.0); ANION GAP 14.8 mmol/L (8-16); CALCIUM 8.4 mg/dL (8.4-10.2); CREATININE, SERUM 1.93 mg/dL (0.72-1.25); MAGNESIUM 1.4 MG/DL (1.3-2.1); PHOSPHORUS 2.9 MG/DL (2.3-4.7)
[2018-02-24 06:00] LABS: POTASSIUM 2.8 mmol/L (3.5-5.1)
[2018-02-24] MEDS: HYDROCODONE/APAP 7.5MG-325MG 1 EA TAB PO PRN ×3 (06:20→18:54)
--- NOTE | 2018-02-24 06:45 | Diagnostic Imaging Report ---
CHEST SINGLE (PORTABLE), 02/24/2018 7:00 AM Technique: CHEST SINGLE (PORTABLE) Comparison: 02/23/2018 Clinical history: Shortness of breath Findings: See Impression Impression: Lordotic portable view with soft tissue attenuation 1. Stable enlarged cardiac silhouette. 2. Central vascular congestion. No consolidation. 3. Possible left effusion. No pneumothorax. Signed by: Dr Reina Jarrett MD on 02/24/2018 6:41 AM
--- NOTE | 2018-02-24 06:58 | NUR ---
PT RESTED DURING THE NIGHT .DENIES PAIN .CALL LIGHT WITH REACH .CONTINUE TO MONITOR
--- NOTE | 2018-02-24 07:25 | NUR ---
PT IN BED SLEEPING NO S/S DISCOMFORT.
--- NOTE | 2018-02-24 07:28 | Diagnostic Imaging Report ---
Exam: Right foot 3 views History: Feeling bad Comparison: None. Findings: No acute, displaced fracture or dislocation. Chronic appearing sclerotic changes, subluxation, and collapse of the midfoot most notably the navicular. Joint spaces of the forefoot are relatively well-maintained. Extensive atherosclerotic vascular calcifications. Shallow soft tissue ulcer over the plantar surface of the foot at the level of the proximal midfoot. No underlying cortical erosive or destructive change. Impression: Plantar soft tissue ulceration or laceration without radiopaque foreign body or underlying cortical destructive change. Findings compatible with Charcot arthropathy of the midfoot. Signed by: Dr. Amrit Mcintosh M.D. on 02/24/2018 7:25 AM
[2018-02-24] MEDS: INSULIN LISPRO 100 UNIT/1 ML 3ML VIAL SQ SCH ×4 (07:30→21:00)
--- NOTE | 2018-02-24 08:30 | NUR ---
DR CHA HERE ORDERS WRITTEN
[2018-02-24] MEDS ORDERED: FAMOTIDINE 20 MG/2 ML VIAL IV SCH (09:00)
[2018-02-24] MEDS: TACROLIMUS 1 MG CAP PO SCH ×2 (10:00→18:00)
[2018-02-24] MEDS: FUROSEMIDE 40 MG TAB PO SCH ×2 (10:16→17:00)
[2018-02-24] MEDS: PREDNISONE 5 MG TAB PO SCH (10:16)
[2018-02-24] MEDS ORDERED: POTASSIUM CHLORIDE 20 MEQ TAB CR PO ONE (10:55)
[2018-02-24] MEDS ORDERED: MAGNESIUM SULFATE 2GM/50ML 50 ML IV ONE (11:00)
[2018-02-24] MEDS ORDERED: POTASSIUM CHLORIDE 20MEQ/100ML 200 ML IV ONE (11:00)
--- NOTE | 2018-02-24 11:27 | Consultation ---
DATE OF CONSULTATION: February 24, 2018 Mr. Sterling Rios is well known to our nephrology service. He has longstanding history of type-2 diabetes with end-organ damage including diabetic retinopathy, neuropathy, peripheral vascular disease, diabetic kidney disease, stage-3 kidney failure. He ultimately developed end-stage renal disease and then status post kidney transplant. Currently maintained on prednisone and tacrolimus 1 mg p.o. b.i.d. He has been admitted with a blister on his foot. Seen by Dr. Barrera. There is a dressing on his right foot. He had his kidney transplant in 2013. Currently on blood thinner Coumadin. History of hypertension. History of chronic allograft nephropathy. History of possible gout. Currently lying supine in no apparent distress. ALLERGIES: NO APPARENT DRUG ALLERGIES. SOCIAL HISTORY: Does not smoke or drink. FAMILY HISTORY: Significant for diabetes. CURRENT MEDICATIONS: Patient is on: 1. Invanz 1 gram IV q.24. 2. Allopurinol 300 mg p.o. daily. 3. Xanax 0.5 mg p.o. daily. 4. Calcitriol 0.5 mcg p.o. every Friday, Friday and Friday. 5. Furosemide 40 mg p.o. b.i.d. 6. Gabapentin 300 mg p.o. b.i.d. 7. Hydralazine 100 mg p.o. t.i.d. 8. Metoclopramide 5 mg p.o. q.a.c. and nightly. 9. Prednisone 5 mg daily. 10. Tacrolimus 1 mg p.o. b.i.d. PHYSICAL EXAMINATION GENERAL: Awake, alert, lying supine, in no apparent distress. VITALS: Blood pressure 130/60, pulse rate 80, respiratory rate 14. HEAD AND NECK: Corneas clear. Oral mucosa moist. LUNGS: Relatively clear. HEART: S1, S2 audible. ABDOMEN: Soft, nontender. LOWER EXTREMITIES: No edema. Dressing noted on right foot. LABS: Hemoglobin 8. White count 7.68. Potassium 2.8, bicarbonate 23, creatinine 1.9, magnesium 1.4. Total protein 5.5, albumin 2.8. IMPRESSION AND PLAN: Cadaveric renal transplant with chronic rejection, chronic allograft nephropathy. Currently hypomagnesemic and hypokalemic. Mild distal renal tubular acidosis. Plan on replacing magnesium and potassium IV. Maintain on Prograf and prednisone. Dr. Barrera following. Consider infectious disease consultation. Job#: [id number]
[2018-02-24] MEDS ORDERED: NON-FORMULARY MEDICATION (Metoclopramide Hcl (Reglan) 5 MG) PO SCH (11:30)
--- NOTE | 2018-02-24 11:30 | NUR ---
DR RANGEL HERE REMOVED DRSRosa NO NEW ORDERS
[2018-02-24] MEDS: METOCLOPRAMIDE HCL 10 MG TAB PO SCH ×3 (12:00→21:00)
[2018-02-24] MEDS: INS LISP PRO/LISP HUMAN 75/25 100 UNITS/ML VIAL SC SCH ×3 (12:00→21:00)
[2018-02-24] MEDS ORDERED: SODIUM CHLORIDE 0.9% 250ML 250 ML ONE (12:07)
--- NOTE | 2018-02-24 14:24 | Consultation ---
DATE OF CONSULTATION: February 24, 2018 HISTORY OF PRESENT ILLNESS: Mr. Rios is a pleasant male with a chronic diabetic ulceration seen. His primary care physician, Dr. Pires, placed him on antibiotics orally with no significant improvement. Ultimately, sent to a wound care center per his accounts over at [facility]. Apparently, had an initial consultation, evaluation and then was subsequently scheduled for further followup. Instead, decided to present to the ED, and he was admitted for further evaluation and recommendations. PAST MEDICAL HISTORY: Diabetes mellitus with diabetic peripheral neuropathy, peripheral arterial disease. FAMILY HISTORY: Noncontributory. SURGICAL HISTORY: Noncontributory. SOCIAL HISTORY: Denies any alcohol or tobacco use. ALLERGIES: NO KNOWN DRUG ALLERGIES. CURRENT MEDICATIONS: Please see MAR for current medication list. PHYSICAL EXAMINATION GENERAL: Well-developed. HEENT: Normocephalic and atraumatic. Extraocular muscles intact. ABDOMEN: Soft and nontender. . PSYCHIATRIC: Normal affect. EXTREMITIES: What appears to be significant collapse of the medial longitudinal arch on the right foot with a large ulceration with some malodor emanating from the site plantarly. Appears to be chronic in nature. Significant amount of fibrotic tissue to the area. No active drainage, however. X-rays consistent with chronic Charcot. Hemoglobin A1c is 8. ASSESSMENT 1. Uncontrolled diabetes. 2. Diabetic foot complications. 3. Concomitant Charcot. 4. Nonhealing diabetic ulceration: Failed outpatient treatment. PLAN: Recommend IV antibiotics for now. Local wound care. May need debridement. Given the current clinical pictures, guarded prognosis with regards to limb salvage. Will continue to follow and monitor. Job#: [id number] SYDNI
[2018-02-24] MEDS: HYDRALAZINE HCL 100 MG TABLET PO SCH ×2 (15:00→21:00)
[2018-02-24] MEDS ORDERED: HYDRALAZINE HCL 25 MG TAB PO SCH (15:00)
--- NOTE | 2018-02-24 15:05 | Diagnostic Imaging Report ---
TECHNIQUE: Computed tomography imaging of the RIGHT foot was performed without injected contrast. Dose modulation, iterative reconstruction, and/or weight based adjustment of the mA/kV was utilized to reduce the radiation dose to as low as reasonably achievable. HISTORY: Pain, infection COMPARISON: None available. DISCUSSION: Soft tissue defect to the plantar midfoot with soft tissue gas in the subcutaneous tissues of the plantar foot. No discrete abscess, however diffuse soft tissue swelling and edema. Severe Charcot arthropathy of the foot with destruction of the midfoot articulations, bone fragmentation and gas within the joint spaces. Vascular calcifications. IMPRESSION: Ulceration of the plantar midfoot with diffuse cellulitis and soft tissue gas. Severe Charcot arthropathy of the midfoot with intra-articular gas, unclear if secondary to the Charcot joint or from infection. Signed by: Dr. Tico Alejandro M.D. on 02/24/2018 3:02 PM
[2018-02-24] MEDS ORDERED: POTASSIUM CHLORIDE 20 MEQ TAB CR PO STA (16:49)
[2018-02-24] MEDS: GABAPENTIN 300 MG CAP PO SCH (17:00)
--- NOTE | 2018-02-24 17:02 | NUR ---
Wound Care Initial Assessment Assessed 63 year old male Right Foot Ulcer evaluation. On assessment discovered diabetic foot ulcer of right foot plantar ulcer full thickness that is heavily exudating purulent drainage. Palpable bone noted. Deines pain or discomfort. Discovered 3+ pitting edema to bilateral lower extremities. Right Foot presents with erythema 2.5 cm to surrounding periwound. Pedal pulses 2+ noted. following for podiatry services and initation of treatment noted. Dressing changed as prescribed with betadine wet to dry dressing. Patient will require debridement and could benefit from hyperbaric therapy. Labs: WBC 7.68 ESR 28 Glucose- 130 Alb 2.7 Wound Cx Right Foot Wound - Pending Blood Cx - Pending CT Impression - Charcot Arthropathy with destruction of mid foot articulation and bone fragmentation with gas within the joint spaces.Cellulitis and soft tissue gas. Reccomendations: Continue current treatment plan with daily Betadine Wet To Dry Dressings as prescribed, Plan for debridement by Dr. Barrera. Bed Side Commode. Dietary Consult for nutritional management, NWB to right foot if okay with podiatry. Offload heels with pillows while in bed. Addendum: 02/24/18 at 1722 by Jarred Conner RN Amended: Links added. Addendum: 02/25/18 at 1511 by Jarred Conner RN Spouse at bedside. Diabetes, Nutrition and Wound Care education provided and plan of care reviewed. Both patient and spouse verbalized understanding and expectations during hospitalization stay.
--- NOTE | 2018-02-24 17:53 | NUR ---
Nutrition Intervention Note RD Recommendation(s) for Physician: -Continue ADA diet as ordered -Rec MVi w/ mineral and vitamin C to support wound healing -Rec 2pkts Beneprotein daily for wound healing -Pt refused diet education, handout was given. -02/24 Plan of Care: RD following, monitoring for tolerance and adequacy Nutrition reason for involvement: Nutrition Risk Trigger MST RD Assessment (02/24) Chart reviewed. 63yo M, who is admitted for chronic diabetic foot ulcer. Education Reporter has been consulted. Visited pt in the room. Pt reports good appetite without any GI complains. Colostomy bag presents. Pt denies any chewing or swallowing difficulty. No recent weight loss reported. Offered diet education but pt is not interested. Will continue to monitor and follow. Principal Problems/Diagnoses: 1. Uncontrolled diabetes. 2. Diabetic foot complications. 3. Concomitant Charcot. 4. Nonhealing diabetic ulceration: Failed outpatient treatment. PMH: Diabetes mellitus with diabetic peripheral neuropathy, peripheral arterial disease, stage-3 kidney failure, s/p kidney transplant. GI: Colostomy bag presents Skin: Per wound care, pt has diabetic foot ulcer of right foot plantar ulcer full thickness that is heavily exudating purulent drainage. Palpable bone noted. Labs: (02/24) Na 135 L, K 2.8 L, BUN 50 H, Creatinine 1.96 H, Glucose 152 H, HbA1c 8.1 Meds: reglan, insulin, prednisone, lasix Ht: 67in Wt: 215.25lb BMI: 33.7kg/m2 IBW: 148lb Malnutrition Evaluation (02/24) The patient does not meet criteria for a specified degree of malnutrition at this time. Will re-evaluate at follow-up as appropriate. Nutrition Prescription (Diet Order): ADA diet Diet Adequacy: meeting calorie needs, Not meeting protein needs Diet Education Needs Assessment: Diet education indicated, but patient declined. Nutrition Care Level: low Nutrition Diagnosis: Increased protein needs related to altered skin integrity as evidenced by diabetic foot ulcer of right foot plantar ulcer w full thickness. Goal: Patient will meet 75-100% of estimated needs by follow up Progress: progressing Interventions: Carbohydrate - modified diet, Commercial food, Multivitamin/mineral supplement therapy Monitoring/Evaluation: total energy intake, Total protein intake, Modified diet, supplement, Weight change Signed: Suyapa Rose, , RD, LD
[2018-02-24] MEDS: ERTAPENEM 1GM/NS 100ML 100 ML IV SCH (18:03)
--- NOTE | 2018-02-24 18:03 | NUR ---
pt up on side of bed no distress noted.
--- NOTE | 2018-02-24 19:28 | NUR ---
RECEIVED PT IN BED AOX3 .PT C/O PAIN SCALE OF 3/10 .FAMILY AT THE BEDSIDE .PT HAD RT FOOT DEBRIDEMENT .CALL LIGHT WITH IN REACH .CONTINUE TO MONITOR .
[2018-02-25] VITALS (11 sets, daily range): BP systolic 135–172; BP diastolic 61–86
[2018-02-25 05:49] LABS: ANION GAP 15.7 mmol/L (8-16); CALCIUM 8.7 mg/dL (8.4-10.2); CREATININE, SERUM 2.12 mg/dL (0.72-1.25); MAGNESIUM 1.6 MG/DL (1.3-2.1); POTASSIUM 3.7 mmol/L (3.5-5.1)
--- NOTE | 2018-02-25 06:34 | NUR ---
PT RESTED DURING THE NIGHT ,DENIES PAIN .CALL LIGHT WITH IN REACH .CONTINUE TO MONITOR
[2018-02-25] MEDS: TACROLIMUS 1 MG CAP PO SCH ×2 (07:07→18:06)
--- NOTE | 2018-02-25 07:25 | NUR ---
RECEIVED PATIENT RESTING IN BED. NO ACUTE DISTRESS NOTED. AT BEDSIDE. CALL LIGHT WITHIN REACH. BED IN THE LOWEST POSITION.
[2018-02-25] MEDS: INSULIN LISPRO 100 UNIT/1 ML 3ML VIAL SQ SCH ×4 (07:30→20:05)
[2018-02-25] MEDS: INS LISP PRO/LISP HUMAN 75/25 100 UNITS/ML VIAL SC SCH ×4 (07:30→20:17)
--- NOTE | 2018-02-25 08:12 | History and Physical ---
PRIMARY CARE PROVIDER: Dr. Pranay Calderón CHIEF COMPLAINT: Status post fall with left flank rib fractures pain, but also right plantar midfoot abscess and infected diabetic foot ulcer. SUMMARY: This is a 63-year-old male who came to the hospital because of the blunt chest trauma, status post fall with 11 and 12 left rib fractures. When the patient presented to the emergency room, he also had a right foot ulcer too as well. CT scan of the right foot was done and showed ulceration of the plantar midfoot with diffuse cellulitis and soft tissue gas. He has severe Charcot arthropathy of the midfoot with intra-articular gas. The patient has an abscess infection and needs surgical intervention. Dr. Luis Angel Barrera was consulted. The patient is otherwise stable at this time. Baseline, he does have diabetes, type 2, on insulin therapy, but more importantly, he is a kidney transplant patient on immunosuppressive therapy. PAST MEDICAL HISTORY: Kidney transplant, chronic kidney disease, dyslipidemia, hypertension, diabetes, type 2, on insulin therapy, atrial fibrillation, on anticoagulant therapy, major depression, status post fall with 11 and 12 rib fractures, Charcot foot, diabetic foot ulcer on the right, peripheral vascular disease, chronic diastolic dysfunction, congestive heart failure with fluid overload. SOCIAL HISTORY: Patient does not smoke or use alcohol. No recreational drugs. ALLERGIES: NO KNOWN ALLERGIES. HOME MEDICATIONS: List reviewed. REVIEW OF SYSTEMS: Left side flank and rib pain. Right foot ulcer. PHYSICAL EXAMINATION VITAL SIGNS: Temperature is 98, blood pressure 137/67, pulse rate 67, respirations 18. GENERAL: The patient is not in acute distress. He is awake. HEENT: Normocephalic, atraumatic and anicteric. NECK: Supple grossly. PULMONARY: Diminished breath sounds. CARDIOVASCULAR: Regular rate and rhythm. ABDOMEN: Soft. EXTREMITIES: Right foot plantar surface diabetic foot ulcer with infection. NEUROLOGIC: Diabetic neuropathy. LABORATORY: Sodium is 134, potassium 3.7, chloride 99, bicarb 23, BUN 50, creatinine 2.1, glucose 95. WBC 7.7, hemoglobin 8, hematocrit 24.9, and platelets is 260,000. IMPRESSION 1. Right plantar midfoot infected diabetic foot ulcer associated with gas: Most likely necrotic tissue. 2. Severe diabetic neuropathy. 3. Kidney transplant patient, on immunosuppressive therapy. 4. Peripheral vascular disease. 5. Chronic kidney disease. 6. Major depression. 7. Multiple chronic baseline problems. PLAN: Continue with diabetic foot care from Dr. Luis Angel Barrera. Collins Kim is on the case. Consult Dr. Hinojosa. Continue with insulin sliding scale coverage. The patient is off of his anticoagulant therapy. Continue to monitor his pro time. The patient is otherwise stable at this time. Job#: [id number] SYDNI
[2018-02-25] MEDS: FUROSEMIDE 40 MG TAB PO SCH ×2 (08:43→17:23)
[2018-02-25] MEDS: HYDRALAZINE HCL 100 MG TABLET PO SCH ×3 (08:43→20:19)
[2018-02-25] MEDS: GABAPENTIN 300 MG CAP PO SCH ×2 (08:43→17:23)
[2018-02-25] MEDS: ALLOPURINOL 300 MG TAB PO SCH (08:43)
[2018-02-25] MEDS: CALCITRIOL 0.25 MCG CAP PO SCH (08:43)
[2018-02-25] MEDS: METOCLOPRAMIDE HCL 10 MG TAB PO SCH ×4 (08:43→20:06)
[2018-02-25] MEDS: PREDNISONE 5 MG TAB PO SCH (08:43)
[2018-02-25] MEDS: HYDROCODONE/APAP 7.5MG-325MG 1 EA TAB PO PRN ×2 (08:44→14:52)
[2018-02-25] MEDS ORDERED: FLUCONAZOLE 100 MG TAB PO SCH (09:00)
[2018-02-25] MEDS ORDERED: ALPRAZOLAM 0.5 MG TAB PO SCH (09:00)
[2018-02-25] MEDS ORDERED: VANCOMYCIN 1GM/NS 250 ML 250 ML IV SCH (11:00)
[2018-02-25] MEDS: METRONIDAZOLE 500MG/NS 100ML 100 ML IV SCH ×2 (13:14→20:00)
--- NOTE | 2018-02-25 14:02 | Consultation ---
DATE OF CONSULTATION: February 25, 2018 INFECTIOUS DISEASE CONSULTATION Mr. Rios is a pleasant 63-year-old gentleman who had a recent history of fall. He complained of left flank pain in the chest area. He also complained of a right foot wound that has been going on for some time and progressively getting worse. No nausea, vomiting, fever, chills, chest pain or shortness of breath. PAST MEDICAL HISTORY: Includes renal transplant, chronic kidney disease, hypertension, diabetes mellitus type 2, hyperlipidemia, atrial fibrillation, major depressive disorder, status post fall. The patient is on anticoagulant therapy. Charcot foot, diabetic foot ulcer, peripheral vascular disease, chronic diastolic dysfunction, congestive heart failure, fluid overload, and chronic edema of extremities. ALLERGIES: NO KNOWN ALLERGIES. SOCIAL HISTORY: Denies ethanol, tobacco and recreational drugs. MEDICATIONS: List has been reviewed. As far as infectious disease point of view, the patient is on Diflucan and Invanz. LABORATORY STUDIES: White count 7.68, hemoglobin 8, platelets 260. Sodium 134, potassium 3.7, chloride 99, CO2 23, BUN 50, creatinine 2.12. Lactic acid of 9.4, which is within range. INR was 3.11 on the 17th, 2 days ago. Blood culture negative. Wound culture came back with gram-negative and enterococcus. CT of the abdomen and pelvis showed nondisplaced left posterior rib fractures with associated left pleural effusion/hemothorax without evidence of pneumothorax. Also, there is no secondary sign of solid or hollow organ injury in the abdomen or pelvis area. Study also showed stable right renal transplant with inflammation surrounding the proximal ureter. CT of the right foot showed an ulceration over the plantar midfoot with diffuse cellulitis and diffuse soft-tissue gas. Severe Charcot arthropathy of the midfoot with intra-articular gas. Unclear if secondary to the Charcot joint or from infection. REVIEW OF SYSTEMS: No nausea, vomiting, fever, chills, chest pain, shortness of breath. Pain seems to be stable and controlled. PHYSICAL EXAMINATION GENERAL: Alert and oriented times 3 in bed in supine position, seems comfortable. VITALS: Temperature 96.8, pulse 119, respirations 18, blood pressure 135/65. CVS: S1 and S2. CHEST: Clear to auscultation, equal expansion. No acute distress. ABDOMEN: Soft, obese, nontender. Ostomy bag noted. HEENT: Moist. No pallor. No JVD. EXTREMITIES: Edema of bilateral lower extremities. Has a plantar wound which has yellow scar, sloughy tissues. Also, the wound has an opening with some clear drainage. No pus noted during this exam. ASSESSMENT AND PLAN: This is a 63-year-old gentleman status post fall with rib fracture on the left and hematoma. The patient has a history of atrial fibrillation on anticoagulant with supratherapeutic international normalization ratio of 3.11 on admission. Antibiotics noted. The patient has a renal transplant with chronic kidney disease. Creatinine as mentioned above is at 2.12. Wound culture as mentioned above has gram-negative charu and enterococcus. Sensitivity and identification are pending. However, blood culture was clean. We will change antibiotics to vancomycin, cefepime and Flagyl. Patient was seen by glove factory sewer, who recommended to give IV antibiotics for now with local wound care. He may need some debridement down the line. The prognosis is very poor and guarding regarding saving the right foot. This case was discussed with Dr. Hinojosa in detail. We want to thank you for this kind consult. We will adjust the medical care based on findings on laboratory and physical examination. Dictated by PILAR Pan. Job#: [id number]
--- NOTE | 2018-02-25 15:06 | Operative Report ---
DATE OF PROCEDURE: February 25, 2018 PREOPERATIVE DIAGNOSIS: Diabetic ulceration with underlying osteomyelitis, bone exposure, Charcot, and arthropathy in a patient with multiple comorbidities. POSTOPERATIVE DIAGNOSIS: Diabetic ulceration with underlying osteomyelitis, bone exposure, Charcot, and arthropathy in a patient with multiple comorbidities. PROCEDURE: Sharp excision through subcutaneous tissue, deep fascia and muscle, right foot, approximately 22 squared cm. Wound size is 4 x 5.5 x 0.7 and ulceration of 0.2 circumferential undermining. MONUMENT LETTERER: None. LOCATION: Bedside. ANESTHESIA: Local. HEMOSTASIS: Local. INDICATIONS FOR PROCEDURE: Mr. Rios is a pleasant male with a history of diabetic ulceration presented for evaluation and treatment of the same. DESCRIPTION OF PROCEDURE: At bedside after preparing the right foot and draping it accordingly, sharp excisional debridement was performed utilizing a #10 blade and pick-ups through the subcutaneous tissue. Total area debrided was 22 squared cm in total. The nonviable as well as some of the viable tissue was excised from the operative site. The patient seemed to tolerate the procedure well without any complications. was established. Hemostasis achieved. Dressing was then applied consisting of Betadine wet-to-dry. Educated in deed on the poor prognosis, but will try limb salvage. Job#: [id number] CT
[2018-02-25] MEDS: CEFEPIME 1GM/NS 0.9% 50 ML 50 ML IV SCH (17:25)
--- NOTE | 2018-02-25 17:36 | NUR ---
PATIENT OFFERED BATH BY TECH X2, PATIENT REFUSED.
--- NOTE | 2018-02-25 19:08 | NUR ---
REPORT GIVEN TO ONCOMING NURSE. PATIENT IS RESTING IN BED. NO ACUTE DISTRESS NOTED. AT BEDSIDE. CALL LIGHT WITHIN REACH. BED IN THE LOWEST POSITION.
--- NOTE | 2018-02-25 19:30 | NUR ---
patient recieved awake, alert, lying quietly in bed. vss. no c/o pain noted. pm assessment complete. noted at the bedside. colostomy emptied/cleaned by at this time. patient/ instructed to call for assistance when needed.
[2018-02-26] VITALS (9 sets, daily range): BP systolic 109–206; BP diastolic 55–104
--- NOTE | 2018-02-26 | NUR ---
patients bed changed at this time but patient continues to refuse a bath. dressing to right foot reinforced at this time. no c/o pain noted.
[2018-02-26] MEDS: HYDROCODONE/APAP 7.5MG-325MG 1 EA TAB PO PRN ×3 (00:38→18:10)
--- NOTE | 2018-02-26 00:38 | NUR ---
patient medicated with norco 7.5 mg po for c/o right foot pain 5/10.
[2018-02-26] MEDS: METRONIDAZOLE 500MG/NS 100ML 100 ML IV SCH ×3 (03:20→20:00)
[2018-02-26] MEDS: ALPRAZOLAM 0.5 MG TAB PO PRN (03:52)
--- NOTE | 2018-02-26 03:52 | NUR ---
patient medicated with xanax 0.5 mg po for c/o anxiety.
[2018-02-26] MEDS: METOPROLOL SUCCINATE 25 MG TAB XL PO PRN (03:53)
--- NOTE | 2018-02-26 03:53 | NUR ---
patient medicated with toprol xl 25 mg po for bp 206/104 hr 91.
[2018-02-26] MEDS: TACROLIMUS 1 MG CAP PO SCH ×2 (05:18→17:30)
--- NOTE | 2018-02-26 07:05 | NUR ---
RECEIVED PATIENT RESTING IN BED. AT BEDSIDE. NO ACUTE DISTRESS NOTED. CALL LIGHT WITHIN REACH. BED IN THE LOWEST POSITION.
[2018-02-26] MEDS: METOCLOPRAMIDE HCL 10 MG TAB PO SCH ×4 (07:30→20:16)
--- NOTE | 2018-02-26 08:18 | NUR ---
LAB CALLED TO NOTIFY RESULTS OF WOUND CULTURE OF VRE. PATIENT PLACED ON ISOLATION PRECAUTION.
[2018-02-26] MEDS: GABAPENTIN 300 MG CAP PO SCH ×2 (08:27→17:30)
[2018-02-26] MEDS: FUROSEMIDE 40 MG TAB PO SCH ×2 (08:27→17:30)
[2018-02-26] MEDS: HYDRALAZINE HCL 100 MG TABLET PO SCH ×3 (08:27→20:15)
[2018-02-26] MEDS: INSULIN LISPRO 100 UNIT/1 ML 3ML VIAL SQ SCH ×4 (08:27→20:17)
[2018-02-26] MEDS: INS LISP PRO/LISP HUMAN 75/25 100 UNITS/ML VIAL SC SCH ×4 (08:27→20:16)
[2018-02-26] MEDS: ALLOPURINOL 300 MG TAB PO SCH (08:28)
[2018-02-26] MEDS: PREDNISONE 5 MG TAB PO SCH (08:28)
[2018-02-26] MEDS ORDERED: CEFEPIME HCL 1 GM VIAL IV SCH (09:00)
--- NOTE | 2018-02-26 09:40 | NUR ---
SHY QUEZADA WITH DR. ROJAS ROUNDING AT THIS TIME, NOTIFIED OF WOUND CULTURE RESULTS.
[2018-02-26] MEDS: LINEZOLID 600 MG/D5W 300ML 300 ML IV SCH ×2 (10:49→21:44)
--- NOTE | 2018-02-26 14:26 | Progress Note ---
DATE: February 26, 2018 PODIATRY PROGRESS NOTE SUBJECTIVE: No new complaints. He does admit that there is quite a bit of bleeding since debrided yesterday to the right foot. OBJECTIVE GENERAL: AO x3. NAD. HEENT: Normocephalic, atraumatic, anicteric. ABDOMEN: Soft, nontender, nondistended. RESPIRATORY: Symmetrical expansion. No distress. PSYCHIATRIC: Normal affect. EXTREMITIES: Ulcerative lesion associated to the foot, albeit the right foot, seems to be stabilized. Decreasing malodor. No active drainage. There is some bleeding going on, not exuberant, however. Size is very similar. ASSESSMENT: Diabetic ulceration status post debridement with underlying diabetic peripheral neuropathy, Charcot as well. PLAN: Proceed with current recommendations, offloading, local wound care. In the interim, still continue Betadine wet-to-dry. Will continue to follow and monitor. Job#: [id number] EV
[2018-02-26] MEDS: CEFEPIME 1GM/NS 0.9% 50 ML 50 ML IV SCH (17:30)
--- NOTE | 2018-02-26 19:13 | NUR ---
REPORT GIVEN TO ONCOMING NURSE. PATIENT IS RESTING IN BED. NO S/S OF DISTRESS NOTED. AT BEDSIDE. CALL LIGHT WITHIN REACH. BED IN THE LOWEST POSITION.
--- NOTE | 2018-02-26 19:15 | NUR ---
patient recieved awake, alert, lying quietly in bed. vss. no c/o pain noted. dressing to right foot c,d,i at this time. pm assessment complete. patient instructed to call for assistance when needed.
[2018-02-27] VITALS (8 sets, daily range): BP systolic 132–168; BP diastolic 59–90
--- NOTE | 2018-02-27 | NUR ---
patient appears to be resting quietly. no c/o pain noted. minimal drainage noted to right foot.
[2018-02-27] MEDS: HYDRALAZINE HCL 25 MG TAB PO PRN (00:54)
--- NOTE | 2018-02-27 00:54 | NUR ---
patient medicated with hydralazine 50 mg po for bp 170/69 at this time.
[2018-02-27] MEDS: ALPRAZOLAM 0.5 MG TAB PO PRN (02:24)
--- NOTE | 2018-02-27 02:24 | NUR ---
patient medicated with xanax 0.5 mg po per patients request at this time.
[2018-02-27] MEDS: METRONIDAZOLE 500MG/NS 100ML 100 ML IV SCH ×3 (04:00→21:00)
[2018-02-27] MEDS: METOPROLOL SUCCINATE 25 MG TAB XL PO PRN (04:21)
--- NOTE | 2018-02-27 04:21 | NUR ---
patient medicated with toprol xl 25 mg po for bp 168/90 hr 78 at this time.
[2018-02-27] MEDS: HYDROCODONE/APAP 7.5MG-325MG 1 EA TAB PO PRN (04:22)
--- NOTE | 2018-02-27 04:22 | NUR ---
patient medicated with norco 7.5/325 mg po for c/o right foot pain 5/10 at this time.
[2018-02-27] MEDS: TACROLIMUS 1 MG CAP PO SCH ×2 (05:19→17:08)
[2018-02-27 06:15] LABS: ANION GAP 15.4 mmol/L (8-16); CALCIUM 8.9 mg/dL (8.4-10.2); CREATININE, SERUM 1.93 mg/dL (0.72-1.25); POTASSIUM 3.4 mmol/L (3.5-5.1)
--- NOTE | 2018-02-27 07:15 | NUR ---
RECEIVED PATIENT RESTING IN BED. NO ACUTE DISTRESS NOTED. AT BEDSIDE. DENIES PAIN OR DISCOMFORT. CALL LIGHT WITHIN REACH. BED IN THE LOWEST POSITION.
[2018-02-27] MEDS: INSULIN LISPRO 100 UNIT/1 ML 3ML VIAL SQ SCH ×3 (07:30→17:07)
[2018-02-27] MEDS: INS LISP PRO/LISP HUMAN 75/25 100 UNITS/ML VIAL SC SCH ×4 (07:30→21:20)
[2018-02-27] MEDS: METOCLOPRAMIDE HCL 10 MG TAB PO SCH (07:30)
[2018-02-27] MEDS: HYDRALAZINE HCL 100 MG TABLET PO SCH ×3 (09:01→21:20)
[2018-02-27] MEDS: CALCITRIOL 0.25 MCG CAP PO SCH (09:01)
[2018-02-27] MEDS: PREDNISONE 5 MG TAB PO SCH (09:01)
[2018-02-27] MEDS: ALLOPURINOL 300 MG TAB PO SCH (09:01)
[2018-02-27] MEDS: GABAPENTIN 300 MG CAP PO SCH ×2 (09:01→17:07)
[2018-02-27] MEDS: FUROSEMIDE 40 MG TAB PO SCH ×2 (09:01→17:07)
[2018-02-27] MEDS: LINEZOLID 600 MG/D5W 300ML 300 ML IV SCH ×2 (10:10→23:30)
--- NOTE | 2018-02-27 10:45 | NUR ---
NOTIFIED DR. CHA ROUNDING ON PATIENT AT THIS TIME. NOTIFIED HIM OF POTASSIUM OF 3.4, PER DR. CHA HAVE DR. PRO REPLACE IT. WILL NOTIFY DR. PRO WHEN HE ROUNDS.
[2018-02-27] MEDS ORDERED: METOCLOPRAMIDE HCL 10 MG TAB PO PRN (11:00)
[2018-02-27] MEDS: CEFEPIME 1GM/NS 0.9% 50 ML 50 ML IV SCH (17:08)
--- NOTE | 2018-02-27 18:03 | NUR ---
CALLED DR. PRO TO NOTIFY OF POTASSIUM OF 3.4, ANSWERING SERVICE WILL PAGE .
--- NOTE | 2018-02-27 18:12 | NUR ---
DR. GARG RETURNED CALLED AND RECEIVED NEW ORDER FOR POTASSIUM 20MEQ PO.
[2018-02-27] MEDS ORDERED: POTASSIUM CHLORIDE 20 MEQ TAB CR PO ONE (18:15)
[2018-02-27] MEDS ORDERED: POTASSIUM CHLORIDE 20MEQ/100ML 100 ML IV ONE (19:15)
--- NOTE | 2018-02-27 19:15 | NUR ---
Completed bedside rounds with morning nurse. Pt lying in 30 degrees. Alert to name. Denies pain at this time. No acute distress noted. Family at bedside. Call cobos within reach.
--- NOTE | 2018-02-27 19:46 | NUR ---
REPORT GIVEN TO ONCOMING NURSE. WALKING ROUNDS DONE. PATIENT IS RESTING IN BED. NO ACUTE DISTRESS NOTED. AT BEDSIDE. CALL LIGHT WITHIN REACH. BED IN THE LOWEST POSITION.
[2018-02-28] VITALS (8 sets, daily range): BP systolic 141–181; BP diastolic 63–90
[2018-02-28] MEDS: INSULIN LISPRO 100 UNIT/1 ML 3ML VIAL SQ SCH ×5 (00:22→20:30)
[2018-02-28] MEDS: METRONIDAZOLE 500MG/NS 100ML 100 ML IV SCH ×3 (04:50→20:21)
[2018-02-28] MEDS: TACROLIMUS 1 MG CAP PO SCH ×2 (06:00→17:40)
[2018-02-28] MEDS: HYDRALAZINE HCL 100 MG TABLET PO SCH ×3 (08:17→20:21)
[2018-02-28] MEDS: INS LISP PRO/LISP HUMAN 75/25 100 UNITS/ML VIAL SC SCH ×4 (08:17→20:30)
[2018-02-28] MEDS: ALLOPURINOL 300 MG TAB PO SCH (08:18)
[2018-02-28] MEDS: GABAPENTIN 300 MG CAP PO SCH ×2 (08:18→17:40)
[2018-02-28] MEDS: PREDNISONE 5 MG TAB PO SCH (08:18)
[2018-02-28] MEDS: HYDROCODONE/APAP 7.5MG-325MG 1 EA TAB PO PRN (09:37)
[2018-02-28] MEDS: LINEZOLID 600 MG/D5W 300ML 300 ML IV SCH ×2 (09:37→23:21)
[2018-02-28] MEDS ORDERED: POTASSIUM CHLORIDE 20 MEQ TAB CR PO ONE (15:30)
[2018-02-28] MEDS ORDERED: FUROSEMIDE INJ 10 MG/ML 4 ML VIAL IV ONE (15:30)
[2018-02-28] MEDS: CEFEPIME 1GM/NS 0.9% 50 ML 50 ML IV SCH (17:40)
--- NOTE | 2018-02-28 19:12 | NUR ---
Report received and walking rounds complete. Pt resting in bed and in no apparent distress. Pt at bedside. Pt on RA and no tele. All safety measures ensured, bed alarm on, and pt call cobos near. Pt encouraged to use call cobos for assistance.
[2018-03-01] VITALS (9 sets, daily range): BP systolic 136–197; BP diastolic 59–88
[2018-03-01] MEDS: HYDROCODONE/APAP 7.5MG-325MG 1 EA TAB PO PRN ×2 (01:31→12:10)
[2018-03-01] MEDS: METRONIDAZOLE 500MG/NS 100ML 100 ML IV SCH ×3 (04:46→20:00)
[2018-03-01] MEDS: TACROLIMUS 1 MG CAP PO SCH ×2 (06:12→18:08)
[2018-03-01 06:13] LABS: ANION GAP 15.1 mmol/L (8-16); CALCIUM 8.5 mg/dL (8.4-10.2); CREATININE, SERUM 2.38 mg/dL (0.72-1.25); POTASSIUM 4.1 mmol/L (3.5-5.1)
--- NOTE | 2018-03-01 07:04 | NUR ---
report given to oncoming nurse
--- NOTE | 2018-03-01 07:56 | NUR ---
Received pt in bed with eyes closed easily arouses with verbal stimuli. Pt is a0x4 and able to verbalize needs. Dressing to right foot has minimal drainage noted. Denies any pain at this time.
[2018-03-01] MEDS: HYDRALAZINE HCL 100 MG TABLET PO SCH ×3 (08:13→20:55)
[2018-03-01] MEDS: ALLOPURINOL 300 MG TAB PO SCH (08:13)
[2018-03-01] MEDS: PREDNISONE 5 MG TAB PO SCH (08:13)
[2018-03-01] MEDS: GABAPENTIN 300 MG CAP PO SCH ×2 (08:13→18:02)
[2018-03-01] MEDS: INSULIN LISPRO 100 UNIT/1 ML 3ML VIAL SQ SCH ×4 (09:37→21:00)
[2018-03-01] MEDS: INS LISP PRO/LISP HUMAN 75/25 100 UNITS/ML VIAL SC SCH ×4 (09:37→21:00)
[2018-03-01] MEDS: LINEZOLID 600 MG/D5W 300ML 300 ML IV SCH ×2 (12:09→22:59)
[2018-03-01] MEDS: HYDRALAZINE HCL 25 MG TAB PO PRN (12:10)
--- NOTE | 2018-03-01 12:14 | Progress Note ---
DATE: March 01, 2018 SUBJECTIVE: No new complaints. OBJECTIVE GENERAL: Alert and oriented x3. NAD. HEENT: Normocephalic, atraumatic, anicteric. ABDOMEN: Soft, nontender, nondistended. Colostomy in place. EXTREMITIES: Foot significantly improved, albeit the right foot, erythema and edema decreased. Wound has stabilized. ASSESSMENT: Diabetic patient with severe diabetic peripheral neuropathy, Charcot arthropathy, cellulitis, high likelihood of osteomyelitis as well. PLAN: Proceed with local wound care. At this point, discontinue Betadine wet-to-dry. Start Santyl collagenase. May need wound VAC ultimately. Still recommend nonweightbearing. Continue antibiotics per Infectious Disease. Dr. Hough will follow and monitor next week. Job#: [id number] ARMAND
[2018-03-01] MEDS ORDERED: WARFARIN SOD 2 MG TAB PO SCH (17:00)
[2018-03-01 18:03] LABS: INR 1.54; PROTHROMBIN TIME 19.8 seconds (11.9-14.5)
[2018-03-01] MEDS: CEFEPIME 1GM/NS 0.9% 50 ML 50 ML IV SCH (18:08)
--- NOTE | 2018-03-01 19:33 | NUR ---
RECEIVED PT IN BED AOX3 .NO ACUTE DISTRESS NOTED .DRESSING TO THE RT FOOT .DENIES PAIN AT THIS TIME .CALL LIGHT WITH IN REACH .CONTINUE TO MONITOR
[2018-03-01] MEDS ORDERED: INSULIN DETEMIR 100 UNIT/ML PEN SQ SCH (21:00)
[2018-03-02] VITALS (7 sets, daily range): BP systolic 141–176; BP diastolic 65–89
[2018-03-02] MEDS: HYDROCODONE/APAP 7.5MG-325MG 1 EA TAB PO PRN ×2 (00:04→11:17)
[2018-03-02] MEDS: METRONIDAZOLE 500MG/NS 100ML 100 ML IV SCH ×3 (04:35→20:55)
--- NOTE | 2018-03-02 05:10 | NUR ---
PT C/O PAIN X1 DURING THE NIGHT .MEDICATED WITH ORDERED PAIN MEDICINE .FAMILY AT THE BEDSIDE .CALL LIGHT WITH IN REACH .CONTINUE TO MONITOR
[2018-03-02] MEDS: TACROLIMUS 1 MG CAP PO SCH ×2 (05:45→17:36)
[2018-03-02] MEDS: HYDRALAZINE HCL 100 MG TABLET PO SCH (09:15)
[2018-03-02] MEDS: CALCITRIOL 0.25 MCG CAP PO SCH (09:16)
[2018-03-02] MEDS: COLLAGENASE OINTMENT 30 GM TUBE TP SCH (09:16)
[2018-03-02] MEDS: ALLOPURINOL 300 MG TAB PO SCH (09:16)
[2018-03-02] MEDS: PREDNISONE 5 MG TAB PO SCH (09:16)
[2018-03-02] MEDS: GABAPENTIN 300 MG CAP PO SCH ×2 (09:16→17:36)
[2018-03-02] MEDS: INS LISP PRO/LISP HUMAN 75/25 100 UNITS/ML VIAL SC SCH ×4 (09:17→22:10)
[2018-03-02] MEDS: INSULIN LISPRO 100 UNIT/1 ML 3ML VIAL SQ SCH ×4 (09:19→22:10)
[2018-03-02] MEDS: LINEZOLID 600 MG/D5W 300ML 300 ML IV SCH ×2 (10:47→22:09)
--- NOTE | 2018-03-02 11:51 | NUR ---
Nutrition Intervention Note RD Recommendation(s) for Physician: - Continue ADA diet as ordered - Pt refused diet education, handout was given. -02/24 Plan of Care: RD following, monitoring for tolerance and adequacy Nutrition reason for involvement: Follow up RD Assessment (03/02) Chart reviewed. Visited pt in the room. Pt reports improved appetite since admission. RN recorded ~100% PO intake. No GI complains noted. Colostomy bag presents. Will continue to monitor and follow. (02/24) Chart reviewed. 63yo M, who is admitted for chronic diabetic foot ulcer. Speech And Language Tutor has been consulted. Visited pt in the room. Pt reports good appetite without any GI complains. Colostomy bag presents. Pt denies any chewing or swallowing difficulty. No recent weight loss reported. Offered diet education but pt is not interested. Will continue to monitor and follow. Principal Problems/Diagnoses: 1. Uncontrolled diabetes. 2. Diabetic foot complications. 3. Concomitant Charcot. 4. Nonhealing diabetic ulceration: Failed outpatient treatment. PMH: Diabetes mellitus with diabetic peripheral neuropathy, peripheral arterial disease, stage-3 kidney failure, s/p kidney transplant. GI: Colostomy bag presents Skin: Per wound care, pt has diabetic foot ulcer of right foot plantar ulcer full thickness that is heavily exudating purulent drainage. Palpable bone noted. Labs: (03/02) no lab since 02/24 (02/24) Na 135 L, K 2.8 L, BUN 50 H, Creatinine 1.96 H, Glucose 152 H, HbA1c 8.1 Meds: insulin, prednisone, calcitriol Ht: 67in Wt: 215.25lb 02/24; 220lb 03/02 BMI: 33.7kg/m2 IBW: 148lb Malnutrition Evaluation (02/24) The patient does not meet criteria for a specified degree of malnutrition at this time. Will re-evaluate at follow-up as appropriate. Nutrition Prescription (Diet Order): ADA diet Diet Adequacy: meeting calorie needs, meeting protein needs Diet Education Needs Assessment: Diet education indicated, but patient declined. Nutrition Care Level: low Nutrition Diagnosis: Increased protein needs related to altered skin integrity as evidenced by diabetic foot ulcer of right foot plantar ulcer w full thickness. Goal: Patient will meet 75-100% of estimated needs by follow up Progress: goal met Interventions: Carbohydrate - modified diet, Commercial food, Multivitamin/mineral supplement therapy Monitoring/Evaluation: total energy intake, Total protein intake, Modified diet, supplement, Weight change Signed: Suyapa Rose, MS, RD, LD
[2018-03-02] MEDS ORDERED: SODIUM CHLORIDE 0.9% 250ML 250 ML ONE (13:11)
[2018-03-02] MEDS ORDERED: ALBUMIN 5% 0.05 GM/ML BTL IV ONE ×2 (13:30)
[2018-03-02] MEDS: CEFEPIME 1GM/NS 0.9% 50 ML 50 ML IV SCH (17:36)
[2018-03-02] MEDS: WARFARIN SOD 3 MG TAB PO SCH (17:36)
[2018-03-02] MEDS: SODIUM CHLORIDE 0.9% 1000ML 1,000 ML IV SCH (17:41)
[2018-03-02] MEDS: INSULIN DETEMIR 100 UNIT/ML PEN SQ SCH (22:10)
[2018-03-02] MEDS: HYDRALAZINE HCL 25 MG TAB PO PRN (23:06)
[2018-03-03] VITALS (8 sets, daily range): BP systolic 153–197; BP diastolic 69–82
[2018-03-03] MEDS: METRONIDAZOLE 500MG/NS 100ML 100 ML IV SCH ×3 (03:26→19:51)
[2018-03-03] MEDS: TACROLIMUS 1 MG CAP PO SCH ×2 (05:28→17:46)
[2018-03-03 05:33] LABS: INR 1.6; PROTHROMBIN TIME 20.4 seconds (11.9-14.5)
[2018-03-03] MEDS: HYDRALAZINE HCL 25 MG TAB PO PRN ×2 (05:41→20:13)
[2018-03-03 05:45] LABS: ALBUMIN/GLOBULIN RATIO 1.2 (0.8-2.0); ANION GAP 15.4 mmol/L (8-16); CALCIUM 8.6 mg/dL (8.4-10.2); CREATININE, SERUM 2.63 mg/dL (0.72-1.25); POTASSIUM 4.4 mmol/L (3.5-5.1)
[2018-03-03] MEDS: INSULIN LISPRO 100 UNIT/1 ML 3ML VIAL SQ SCH ×4 (07:30→21:16)
[2018-03-03] MEDS: INS LISP PRO/LISP HUMAN 75/25 100 UNITS/ML VIAL SC SCH ×4 (07:46→21:15)
[2018-03-03] MEDS: PREDNISONE 5 MG TAB PO SCH (08:47)
[2018-03-03] MEDS: GABAPENTIN 300 MG CAP PO SCH (08:47)
[2018-03-03] MEDS: ALLOPURINOL 300 MG TAB PO SCH (08:47)
[2018-03-03] MEDS: LINEZOLID 600 MG/D5W 300ML 300 ML IV SCH ×2 (10:03→23:16)
[2018-03-03] MEDS: SODIUM CHLORIDE 0.9% 1000ML 1,000 ML IV SCH ×2 (10:03→21:17)
[2018-03-03] MEDS: METOPROLOL SUCCINATE 25 MG TAB XL PO PRN (10:04)
--- NOTE | 2018-03-03 11:30 | NUR ---
patient resting in bed, dressing changed, patient tolerated well, not in any distress, family at bed side
[2018-03-03] MEDS: HYDROCODONE/APAP 7.5MG-325MG 1 EA TAB PO PRN ×2 (11:56→20:07)
[2018-03-03] MEDS: COLLAGENASE OINTMENT 30 GM TUBE TP SCH (14:11)
[2018-03-03] MEDS: WARFARIN SOD 3 MG TAB PO SCH (17:26)
[2018-03-03] MEDS: CEFEPIME 1GM/NS 0.9% 50 ML 50 ML IV SCH (17:46)
--- NOTE | 2018-03-03 20:15 | NUR ---
Pt with elevated bp with stable hr. Administered PRN hydralazine. Will continue to monitor.
[2018-03-03] MEDS: INSULIN DETEMIR 100 UNIT/ML PEN SQ SCH (21:16)
--- NOTE | 2018-03-03 23:45 | NUR ---
Pt states he has been having some burning type of pain on right lower groin/abdomen area. Some scratch jimenez noted to the site. Advised pt not to scratch the area. Will notify in AM.
[2018-03-04] VITALS (7 sets, daily range): BP systolic 127–183; BP diastolic 60–72
[2018-03-04] MEDS: ALPRAZOLAM 0.5 MG TAB PO PRN (01:59)
--- NOTE | 2018-03-04 01:59 | NUR ---
Pt asking for something to help him sleep. Offered xanax from pt's meds list. Pt agrees to take medicine along with pain medication for foot and right groin area.
[2018-03-04] MEDS: HYDROCODONE/APAP 7.5MG-325MG 1 EA TAB PO PRN ×2 (02:03→23:20)
[2018-03-04] MEDS: METRONIDAZOLE 500MG/NS 100ML 100 ML IV SCH (04:45)
[2018-03-04] MEDS: SODIUM CHLORIDE 0.9% 1000ML 1,000 ML IV SCH ×2 (05:15→23:20)
[2018-03-04] MEDS: TACROLIMUS 1 MG CAP PO SCH ×2 (05:39→17:20)
[2018-03-04] MEDS: HYDRALAZINE HCL 25 MG TAB PO PRN (05:55)
[2018-03-04] MEDS: INS LISP PRO/LISP HUMAN 75/25 100 UNITS/ML VIAL SC SCH ×4 (07:42→21:00)
[2018-03-04] MEDS: INSULIN LISPRO 100 UNIT/1 ML 3ML VIAL SQ SCH ×4 (07:42→21:00)
[2018-03-04] MEDS: CALCITRIOL 0.25 MCG CAP PO SCH (08:09)
[2018-03-04] MEDS: ALLOPURINOL 300 MG TAB PO SCH (08:09)
--- NOTE | 2018-03-04 09:20 | NUR ---
patient resting in bed, dressing changed, denies any pain, IV fluids on flow, not in any distress
[2018-03-04] MEDS: LINEZOLID 600 MG/D5W 300ML 300 ML IV SCH ×2 (09:38→22:14)
[2018-03-04] MEDS: COLLAGENASE OINTMENT 30 GM TUBE TP SCH (09:38)
[2018-03-04] MEDS ORDERED: DIATRIZOATE MEGL/DIATRIZOA SOD 30 ML BTL PO ONE (10:16)
--- NOTE | 2018-03-04 13:41 | Diagnostic Imaging Report ---
PROCEDURE: CT ABDOMEN AND PELVIS WITHOUT CONTRAST TECHNIQUE: The abdomen and pelvis were scanned utilizing a multidetector helical scanner from the diaphragm to the lesser trochanter without IV contrast material. Oral positive contrast was administered. Coronal and sagittal multiplanar reformations were obtained. Dose sparing technology was utilized. DLP: 893.53 COMPARISON: [facility], CT, CT ABDOMEN/PELVIS WO, 02/23/2018, 17:17. INDICATIONS: LEFT UPPER QUADRANT PAIN FINDINGS: ABSENCE OF INTRAVENOUS CONTRAST DECREASES SENSITIVITY FOR DETECTION OF FOCAL LESIONS AND VASCULAR PATHOLOGY. LOWER THORAX: Interval development of moderate bilateral pleural effusions. Right lower lobe calcified granuloma. HEPATOBILIARY: No focal hepatic lesions. No biliary ductal dilatation. SPLEEN: No splenomegaly. PANCREAS: No focal masses or ductal dilatation. ADRENALS: No adrenal nodules. KIDNEYS/URETERS: Small atrophic kidneys with intrarenal calcification. Right pelvic transplant kidney. PELVIC ORGANS/BLADDER: Unremarkable. PERITONEUM / RETROPERITONEUM: Incisional hernia in the right lateral abdominal wall. LYMPH NODES: No lymphadenopathy. VESSELS: Diffuse vascular calcification. There is an IVC filter. GI TRACT: Left lower abdomen ostomy. SOFT TISSUES: Diffuse soft tissue swelling along the lateral aspect of the little lower thorax and abdomen represents soft tissue hematoma. BONES: Diffuse degenerative changes of the spine and osteopenia. Fractures of the lower left ribs now showing some periosteal reaction. IMPRESSION: 1. Interval development of moderate bilateral pleural effusions. 2. Development of right lower chest wall and right abdominal wall hematoma. Phil Houser D.O. Dictated by: Phil Houser D.O. on 03/04/2018 at 13:53 Electronically approved by: Phil Houser D.O. on 03/04/2018 at 13:53
[2018-03-04] MEDS: WARFARIN SOD 3 MG TAB PO SCH (16:45)
--- NOTE | 2018-03-04 16:58 | NUR ---
CT abdomen/pelvis result called to Dr Herbert
[2018-03-04] MEDS: CEFEPIME 1GM/NS 0.9% 50 ML 50 ML IV SCH (17:01)
--- NOTE | 2018-03-04 19:00 | NUR ---
patient recieved awake, alert, lying quietly in bed. vss. no c/o pain noted. dressing to right foot c,d,i. pm assessment complete. noted at the bedside. patient/ instructed to call for assistance when needed.
[2018-03-04] MEDS: INSULIN DETEMIR 100 UNIT/ML PEN SQ SCH (21:00)
[2018-03-05] VITALS (7 sets, daily range): BP systolic 121–169; BP diastolic 69–89
--- NOTE | 2018-03-05 02:30 | NUR ---
colostomy emptied at this time per patient request.
[2018-03-05 05:03] LABS: BASOPHILS % 0.6 % (0.0-1.0); EOSINOPHILS # (AUTO) 0.3 (0.0-0.4); EOSINOPHILS % 4.6 % (0.0-6.0); HEMATOCRIT 23.5 % (38.2-49.6); HEMOGLOBIN 7.5 g/dL (14.0-18.0); LYMPHOCYTES # (AUTO) 1.3 (1.0-3.2); LYMPHOCYTES % 21.2 % (18.0-39.1); MEAN CORPUSCULAR HEMOGLOBIN 29.4 pg (28-32); MEAN CORPUSCULAR HGB CONC 31.9 g/dL (31-35); MEAN CORPUSCULAR VOLUME 92.2 fL (81-99); MONOCYTES # (AUTO) 0.5 (0.2-0.8); MONOCYTES % 8.5 % (4.4-11.3); NEUTROPHILS % 64.6 % (38.7-80.0); PLATELET COUNT 177 x10e3/uL (140-360); RED BLOOD COUNT 2.55 x10e6/uL (4.3-5.7); RED CELL DISTRIBUTION WIDTH 16.7 % (11.7-14.4)
[2018-03-05 05:17] LABS: INR 2.99; PROTHROMBIN TIME 33.2 seconds (11.9-14.5)
[2018-03-05] MEDS: HYDROCODONE/APAP 7.5MG-325MG 1 EA TAB PO PRN ×2 (05:42→22:39)
[2018-03-05] MEDS: TACROLIMUS 1 MG CAP PO SCH ×2 (05:42→18:35)
[2018-03-05] MEDS: INSULIN LISPRO 100 UNIT/1 ML 3ML VIAL SQ SCH ×4 (07:30→21:00)
[2018-03-05] MEDS: INS LISP PRO/LISP HUMAN 75/25 100 UNITS/ML VIAL SC SCH ×4 (08:05→21:00)
[2018-03-05] MEDS ORDERED: FUROSEMIDE INJ 10 MG/ML 4 ML VIAL IV NR (09:30)
--- NOTE | 2018-03-05 09:45 | Progress Note ---
DATE: March 05, 2018 Patient seen at bedside with an ulceration to the right heel, grade 3 ulcer. Some necrosis noted. Has a Charcot foot deformity. Pedal pulses are diminished. OBJECTIVE VITALS: Noted to be afebrile, pulse rate 59, respirations 17, O2 saturation 98% with a pulse rate of 59. White blood cell count 6.26 with a glucose of 117. ASSESSMENT: Grade 3 ulcer right foot and cellulitis. PLAN: Will continue Santyl followed by diluted wet-to-dry Betadine. Continue offloading. Will continue to follow. Job#: [id number] [place]
[2018-03-05] MEDS: ALLOPURINOL 300 MG TAB PO SCH (09:46)
--- NOTE | 2018-03-05 10:04 | NUR ---
SPOKE W DR. CHA REGARDING PT'S DC PLAN. STATES NO PLAN AT THIS TIME. STATES PT IN SURGERY THIS AM AND WILL F/U ONCE PT RETURNS AND DISCUSS W PODIATRY.
[2018-03-05] MEDS ORDERED: EPOETIN ALFA 10000 UNIT/ML VIAL SC ONE (11:00)
[2018-03-05 11:29] LABS: % IRON SATURATION 92 % (15-50); IRON 138 ug/dL (65-175); TOTAL IRON BINDING CAPACITY 150 ug/dL (261-478); TRANSFERRIN 107 mg/dL (174-364)
[2018-03-05] MEDS ORDERED: SODIUM CHLORIDE 0.9% 250ML 250 ML ONE (11:32)
[2018-03-05] MEDS: FUROSEMIDE INJ 10 MG/ML 4 ML VIAL IV SCH ×3 (12:07→23:38)
[2018-03-05] MEDS: CEFEPIME 1GM/NS 0.9% 50 ML 50 ML IV SCH (12:50)
[2018-03-05] MEDS: METRONIDAZOLE 500MG/NS 100ML 100 ML IV SCH ×2 (13:20→21:08)
--- NOTE | 2018-03-05 14:20 | NUR ---
patient resting in bed, dressing changed with betadine wet to dry dressing and santyl, no distress noted, call light in reach,
[2018-03-05] MEDS: WARFARIN SOD 3 MG TAB PO SCH (17:10)
[2018-03-05] MEDS: SODIUM BICARBONATE 650 MG TAB PO SCH (17:36)
--- NOTE | 2018-03-05 19:30 | NUR ---
patient recieved awake, alert, lying quietly in bed. vss. no c/o pain noted. dressing to right foot c,d,i. pm assessment complete. remains at the bedside. patient/ instructed to call for assistance when needed.
[2018-03-05] MEDS: INSULIN DETEMIR 100 UNIT/ML PEN SQ SCH (21:00)
[2018-03-06] VITALS (7 sets, daily range): BP systolic 109–154; BP diastolic 53–82
[2018-03-06] MEDS: FUROSEMIDE INJ 10 MG/ML 4 ML VIAL IV SCH ×4 (05:18→23:05)
[2018-03-06] MEDS: METRONIDAZOLE 500MG/NS 100ML 100 ML IV SCH (05:18)
[2018-03-06] MEDS: HYDROCODONE/APAP 7.5MG-325MG 1 EA TAB PO PRN ×2 (05:18→13:25)
[2018-03-06] MEDS: TACROLIMUS 1 MG CAP PO SCH ×2 (05:18→17:16)
[2018-03-06 05:59] LABS: ALBUMIN 2.8 g/dL (3.5-5.0); ALBUMIN/GLOBULIN RATIO 1.1 (0.8-2.0); CALCIUM 8.7 mg/dL (8.4-10.2); CREATININE, SERUM 2.49 mg/dL (0.72-1.25)
[2018-03-06] MEDS: INSULIN LISPRO 100 UNIT/1 ML 3ML VIAL SQ SCH ×4 (07:30→21:38)
[2018-03-06] MEDS: INS LISP PRO/LISP HUMAN 75/25 100 UNITS/ML VIAL SC SCH ×4 (07:30→21:38)
[2018-03-06] MEDS ORDERED: CEFEPIME HCL 1 GM VIAL IV SCH (09:00)
[2018-03-06] MEDS: SODIUM BICARBONATE 650 MG TAB PO SCH ×2 (09:46→17:02)
[2018-03-06] MEDS: ALLOPURINOL 300 MG TAB PO SCH (09:46)
[2018-03-06] MEDS: CEFEPIME 1GM/NS 0.9% 50 ML 50 ML IV SCH (09:46)
[2018-03-06] MEDS: CALCITRIOL 0.25 MCG CAP PO SCH (09:46)
[2018-03-06] MEDS: COLLAGENASE OINTMENT 30 GM TUBE TP SCH (12:39)
[2018-03-06] MEDS: AMPICILLIN TRIHYDRATE 500MG CAPSULE PO SCH ×3 (13:01→23:06)
--- NOTE | 2018-03-06 14:53 | NUR ---
SPOKE WITH CAITLIN AT [address], THEY HAVE A PRIVATE BED AVAILABLE, FAXED CLINICALS TO HER AND SHE STATES SHE WILL GET WITH JORGE AT [facility] TO GET APPROVAL. FILLED OUT RTF LEFT AT [facility] FOR TRANSPORT WHEN APPROVAL IS RECEIVED.
--- NOTE | 2018-03-06 15:41 | NUR ---
PASRR COMPLETED FILED IN CHART AND PUT WITH PACKET TO ACCOMPANY PT TO FACILITY
[2018-03-06 16:12] LABS: ANION GAP 16.1 mmol/L (8-16); CALCIUM 8.9 mg/dL (8.4-10.2); CREATININE, SERUM 2.42 mg/dL (0.72-1.25); POTASSIUM 4.1 mmol/L (3.5-5.1)
[2018-03-06] MEDS ORDERED: WARFARIN SOD 2 MG TAB PO SCH (17:00)
[2018-03-06] MEDS ORDERED: WARFARIN SOD 3 MG TAB PO SCH (17:00)
--- NOTE | 2018-03-06 19:11 | NUR ---
PATIENT IS RESTING IN BED- IN STABLE CONDITION WITH NO S/S OF RESPIRATORY DISTRESS. NO PAIN VOICED. PRESENT IN ROOM. DRESSING TO RIGHT FOOT IS DRY AND INTACT. CALL LIGHT IS WITHIN REACH, INSTRUCTED TO CALL FOR ASSISTANCE NEEDED. REPORT GIVEN TO ONCOMING NURSE.
--- NOTE | 2018-03-06 19:15 | NUR ---
RECEIVED PT IN BED AWAKE AND ALERT. AT BEDSIDE. NO RESP DISTRESS. DRESSING TO R FOOT C/D/I. CALL LIGHT WITHIN REACH AND INSTRUCTED TO CALL FOR ASSISTANCE.
[2018-03-06] MEDS: INSULIN DETEMIR 100 UNIT/ML PEN SQ SCH (21:00)
[2018-03-07] VITALS (8 sets, daily range): BP systolic 122–132; BP diastolic 53–79
[2018-03-07] MEDS: FUROSEMIDE INJ 10 MG/ML 4 ML VIAL IV SCH ×2 (05:20→11:22)
[2018-03-07] MEDS: TACROLIMUS 1 MG CAP PO SCH ×2 (05:20→17:03)
[2018-03-07] MEDS: AMPICILLIN TRIHYDRATE 500MG CAPSULE PO SCH ×4 (05:20→23:30)
[2018-03-07] MEDS: HYDROCODONE/APAP 7.5MG-325MG 1 EA TAB PO PRN ×3 (05:20→22:33)
[2018-03-07 05:36] LABS: BASOPHILS % 0.6 % (0.0-1.0); EOSINOPHILS # (AUTO) 0.3 (0.0-0.4); EOSINOPHILS % 4.2 % (0.0-6.0); HEMATOCRIT 25.5 % (38.2-49.6); HEMOGLOBIN 8.2 g/dL (14.0-18.0); LYMPHOCYTES # (AUTO) 1.5 (1.0-3.2); LYMPHOCYTES % 22.8 % (18.0-39.1); MEAN CORPUSCULAR HEMOGLOBIN 28.7 pg (28-32); MEAN CORPUSCULAR HGB CONC 32.2 g/dL (31-35); MEAN CORPUSCULAR VOLUME 89.2 fL (81-99); MONOCYTES # (AUTO) 0.4 (0.2-0.8); MONOCYTES % 6.8 % (4.4-11.3); NEUTROPHILS # (AUTO) 4.2 (2.1-6.9); NEUTROPHILS % 65.1 % (38.7-80.0); PLATELET COUNT 162 x10e3/uL (140-360); RED BLOOD COUNT 2.86 x10e6/uL (4.3-5.7); RED CELL DISTRIBUTION WIDTH 16.7 % (11.7-14.4)
--- NOTE | 2018-03-07 05:50 | NUR ---
RECEIVED CALL FROM LAB REGARDING ELEVATED LAB VALUES.
[2018-03-07 05:52] LABS: INR 4.85
[2018-03-07 05:58] LABS: PROTHROMBIN TIME 48.4 seconds (11.9-14.5)
[2018-03-07 06:00] LABS: ANION GAP 15.9 mmol/L (8-16); CALCIUM 8.7 mg/dL (8.4-10.2); CREATININE, SERUM 2.35 mg/dL (0.72-1.25); POTASSIUM 3.9 mmol/L (3.5-5.1)
--- NOTE | 2018-03-07 06:57 | NUR ---
PATIENT IS IN STABLE CONDITION WITH NO S/S OF RESPIRATORY DISTRESS. NO PAIN VOICED. PRESENT IN ROOM. DRESSING TO RIGHT FOOT IS DRY AND INTACT. CALL LIGHT IS WITHIN REACH, INSTRUCTED TO CALL FOR ASSISTANCE NEEDED.
[2018-03-07] MEDS: INS LISP PRO/LISP HUMAN 75/25 100 UNITS/ML VIAL SC SCH ×4 (07:30→21:00)
[2018-03-07] MEDS: INSULIN LISPRO 100 UNIT/1 ML 3ML VIAL SQ SCH ×4 (07:30→21:00)
[2018-03-07] MEDS: ALLOPURINOL 300 MG TAB PO SCH (09:39)
[2018-03-07] MEDS: CEFEPIME 1GM/NS 0.9% 50 ML 50 ML IV SCH (09:39)
[2018-03-07] MEDS: SODIUM BICARBONATE 650 MG TAB PO SCH ×2 (09:39→17:03)
--- NOTE | 2018-03-07 09:57 | NUR ---
SPOKE WITH DR. CHA REGARDING PATIENT'S INR OF 4.85- ORDER TO STOP COUMADIN.
[2018-03-07] MEDS ORDERED: EPOETIN ALFA 10000 UNIT/ML VIAL SC NR (10:15)
--- NOTE | 2018-03-07 10:15 | NUR ---
PATIENT DOES NOT WANT TO DO DRESSING CHANGE TO HIS RIGHT FOOT UNTIL DR. RANGEL ROUNDS TODAY. DRESSING REMAINS INTACT AND DRY.
--- NOTE | 2018-03-07 10:50 | Progress Note ---
DATE: March 07, 2018 SUBJECTIVE: Breathing is better. He is diuresing. I's and O's show negative of 1200 mL. OBJECTIVE: GENERAL: Sitting up, in no distress. VITAL SIGNS: Temperature 97.6, pulse 83, blood pressure 122/56. EXTREMITIES: 1 to 2+ edema. CHEST: Diminished breath sounds at the bases. CARDIAC: Normal heart tones. ABDOMEN: Benign with no abdominal wall bruising. CHEMISTRY: Creatinine is 2.35 and is within his baseline serum, S CO2 is decreased ASSESSMENT: 1. Chronic kidney disease 4, status post renal transplant. 2. History of diabetic nephropathy. 3. Fluid overload/congestive heart failure. 4. Metabolic acidosis. PLAN: Continue IV diuresis, then p.o. bicarbonate. He is currently maintained on Prograf, which is to be continued. Keep salt and fluid restricted. We will follow along. Job#: [id number] CM PAYNE
[2018-03-07] MEDS: COLLAGENASE OINTMENT 30 GM TUBE TP SCH (14:19)
--- NOTE | 2018-03-07 14:19 | NUR ---
DEBRIDEMENT COMPLETED BY DR. RANGEL AND WOUND CARE COMPLETED BY DR. RANGEL AND RN AT BEDSIDE. PRESENT IN ROOM. DRESSING IS DRY AND INTACT. NEW ORDER RECEIVED FOR 3 VIEW X-RAY OF BILATERAL FEET.
--- NOTE | 2018-03-07 15:49 | Progress Note ---
DATE: March 07, 2018 SUBJECTIVE: Patient seen at bedside, doing much better. Decreased pain. Denies any history of fever, chills, nausea, or vomiting. OBJECTIVE VITAL SIGNS: Afebrile, pulse rate 72, respirations 20, blood pressure 122/53, O2 saturation 95%. EXTREMITIES: Grade 3 ulcer, plantar aspect, right foot, 4 cm in diameter. It is very close to the plantar fascia. Necrosis noted with some foul smell present. Pedal pulses are palpable. Has a swollen foot bilaterally, the right worse than the left. ASSESSMENT: Charcot foot with a grade 3 ulcer, possible osteomyelitis with edema. PLAN: After discussing options at bedside with the help of the nurse, a sharp excisional debridement of the ulcer was carried out to devitalize tissue down to the plantar fascial level down the tendon. Devitalized tissue sharply excised until good viable bleeding tissue was achieved. Santyl followed by diluted wet-to-dry Betadine was applied. X-rays, 3 views, both feet will be ordered to rule out any bone involvement. Will continue IV cefepime. Will continue to follow. Job#: [id number] LPA
--- NOTE | 2018-03-07 18:59 | NUR ---
PATIENT IS IN STABLE CONDITION WITH NO S/S OF RESPIRATORY DISTRESS. NO PAIN VOICED. DRESSING TO RIGHT FOOT IS INTACT WITH SOME DRAINAGE (BLOOD NOTED). PRESENT IN ROOM. CALL LIGHT IS WITHIN REACH, INSTRUCTED TO CALL FOR ASSISTANCE NEEDED. REPORT GIVEN TO ONCOMING NURSE.
--- NOTE | 2018-03-07 19:04 | Diagnostic Imaging Report ---
Exam: Right foot radiographs - 3 views; Left foot radiographs - 3 views. Comparison: Right foot CT 02/24/18 and right foot radiographs 02/23/18. Findings: Right foot: No acute, displaced fracture or dislocation. Chronic appearing sclerotic changes, subluxation, and collapse of the midfoot most notably the navicular. Joint spaces of the forefoot are maintained. Extensive atherosclerotic vascular calcifications. Shallow soft tissue ulcer over the plantar surface of the foot at the level of the proximal midfoot. No underlying cortical erosive or destructive change. The ulcer along the plantar surface of the foot appears enlarged measuring up to 2.4 cm, previously 1.[address] from 02/24/18. Left foot: No evidence of acute displaced fracture. There is lateral subluxation of the first through fourth toes with relation to the metatarsal heads. There is a chronic appearing corticated non-union of the second metatarsal head, likely representing sequela of prior trauma. There is also a deformity at the base of the fourth toe proximal phalanx.There are diffuse atherosclerotic vascular calcifications. The Lis Franc alignment is maintained. There is a possible erosion at the base of the cuboid which demonstrates sclerosis. Mildly sclerotic appearance at the base of the second through fourth metatarsals as well as the third and through fifth metatarsal shafts. Impression: No evidence of acute displaced fracture or malalignment in bilateral feet. Findings compatible with Charcot arthropathy of the right midfoot as seen on prior imaging from 02/24/18. Increasing size of plantar ulcer. Chronic appearing fracture / non-union involving the left second metatarsal head. Possible erosion at the base of the left cuboid, as well as sclerotic appearance of the second through fifth metatarsals. This may represent findings of osteomyelitis, potentially chronic, and could be further evaluated with MRI if clinically indicated. Signed by: Dr. Oni Chavez MD on 03/07/2018 7:01 PM
--- NOTE | 2018-03-07 19:10 | NUR ---
RECEIVED PT IN BED AWAKE AND ALERT. AT BEDSIDE. NO RESP DISTRESS. DRESSING INTACT, WITH MODERATE BLOOD RED DRAINAGE. REINFORCED DRESSING WITH, KERLEX, AND SECURED WITH TAPE. CALL LIGHT WITHIN REACH AND INSTRUCTED TO CALL FOR ASSISTANCE.
[2018-03-07] MEDS: INSULIN DETEMIR 100 UNIT/ML PEN SQ SCH (21:00)
[2018-03-08] VITALS (8 sets, daily range): BP systolic 107–153; BP diastolic 54–72
--- NOTE | 2018-03-08 01:10 | NUR ---
NOTED SEROUS DRAINAGE TO DRESSING ON R FOOT. REINFORCED DRESSING WITH EXTRA GAUZE AND SECURED WITH KERLIX AND TAPE.
[2018-03-08] MEDS: HYDROCODONE/APAP 7.5MG-325MG 1 EA TAB PO PRN ×2 (03:30→13:26)
[2018-03-08 06:09] LABS: INR 5.45
[2018-03-08 06:13] LABS: ANION GAP 15.6 mmol/L (8-16); CALCIUM 8.6 mg/dL (8.4-10.2); CREATININE, SERUM 2.2 mg/dL (0.72-1.25); MAGNESIUM 1.5 MG/DL (1.3-2.1); PHOSPHORUS 3.5 MG/DL (2.3-4.7); POTASSIUM 3.6 mmol/L (3.5-5.1)
[2018-03-08] MEDS: AMPICILLIN TRIHYDRATE 500MG CAPSULE PO SCH ×3 (06:29→17:15)
[2018-03-08] MEDS: TACROLIMUS 1 MG CAP PO SCH ×2 (06:29→17:15)
[2018-03-08] MEDS: INS LISP PRO/LISP HUMAN 75/25 100 UNITS/ML VIAL SC SCH ×4 (07:30→21:00)
[2018-03-08] MEDS: INSULIN LISPRO 100 UNIT/1 ML 3ML VIAL SQ SCH ×4 (07:30→20:37)
[2018-03-08] MEDS: FUROSEMIDE INJ 10 MG/ML 4 ML VIAL IV SCH ×2 (09:46→12:37)
[2018-03-08] MEDS: ALLOPURINOL 300 MG TAB PO SCH (09:46)
[2018-03-08] MEDS: SODIUM BICARBONATE 650 MG TAB PO SCH ×2 (09:46→17:15)
[2018-03-08] MEDS: CEFEPIME 1GM/NS 0.9% 50 ML 50 ML IV SCH (09:46)
[2018-03-08] MEDS: PREDNISONE 5 MG TAB PO SCH (09:46)
--- NOTE | 2018-03-08 09:52 | NUR ---
PATIENT REMAINS IN STABLE CONDITION WITH NO S/S OF RESPIRATORY DISTRESS. PATIENT DENIES PAIN. MORNING MEDICATIONS ADMINISTERED. DRESSING TO RIGHT FOOT IS INTACT. PRESENT IN ROOM. IV ANTIBIOTIC INFUSING. CALL LIGHT IS WITHIN REACH, INSTRUCTED TO CALL FOR ASSISTANCE NEEDED.
[2018-03-08] MEDS: COLLAGENASE OINTMENT 30 GM TUBE TP SCH (12:13)
--- NOTE | 2018-03-08 12:13 | NUR ---
WOUND CARE COMPLETED BY RN AND DR. RANGEL.
--- NOTE | 2018-03-08 13:40 | Progress Note ---
DATE: March 08, 2018 SUBJECTIVE: Patient is at bedside, doing better accompanied by multiple family members. Denies any history of fever, chills, nausea or vomiting. OBJECTIVE VITAL SIGNS: Afebrile. Pulse rate 91, respirations 20, blood pressure 136/72, and O2 saturation 96%. EXTREMITIES: Ulceration looking better to the right lower extremity status post debridement down to muscle and tendon. One granulation tissue noted. Decreased cellulitis. X-rays taken revealed severe calcification with Charcot foot deformity with destruction to the mid tarsal joint area. On lateral view, has destruction to the navicular with collapsing at the metatarsal joint area. No gas in the tissue or periosteal reaction at this point. ASSESSMENT: Charcot foot with a grade 3 ulceration with cellulitis. PLAN: We will continue IV antibiotics such as cefepime and oral ampicillin. Continue local wound care with Santyl followed by dilute wet-to-dry Betadine. Dressing was changed today. Continue offloading. Will continue to follow. Job#: [id number] CINTHYA
--- NOTE | 2018-03-08 18:04 | NUR ---
RN REINFORCED DRESSING TO RIGHT FOOT BY APPLYING ANOTHER ROLL OF KERLIX. ENGINEERING TECH PRESENT IN THE ROOM. RN AND ENGINEERING TECH OFFERED TO CHANGE THE (BOTTOM) SHEET OF THE BED FOR THE PATIENT D/T DRAINAGE FROM RIGHT FOOT. PATIENT AND HIS REFUSED FOR THE BOTTOM SHEET TO BE CHANGED AND REFUSED FOR A PAPER PAD TO BE PLACED UNDER THE RIGHT FOOT. PATIENT AGREED FOR A TOWEL TO BE PLACED ON HIS RIGHT FOOT AND AGREED TO HAVE HIS TOP SHEET CHANGED.
--- NOTE | 2018-03-08 19:04 | NUR ---
PATIENT IS IN STABLE CONDITION WITH NO S/S OF RESPIRATORY DISTRESS. PRESENT IN ROOM. DRESSING TO RIGHT FOOT WAS REINFORCED- DRESSING IS DRY AND INTACT. CALL LIGHT IS WITHIN REACH, INSTRUCTED TO CALL FOR ASSISTANCE NEEDED. REPORT GIVEN TO ONCOMING NURSE.
--- NOTE | 2018-03-08 19:11 | NUR ---
RECEIVED PT IN BED AWAKE AND ALERT. AT BEDSIDE. NO RESP DISTRESS. DRESSING TO R FOOT C,D,I. CALL LIGHT WITHIN REACH AND INSTRUCTED TO CALL FOR ASSISTANCE. PT VERBALIZED UNDERSTANDING.
[2018-03-08] MEDS: INSULIN DETEMIR 100 UNIT/ML PEN SQ SCH (20:37)
[2018-03-09] VITALS (7 sets, daily range): BP systolic 114–176; BP diastolic 57–106
--- NOTE | 2018-03-09 00:15 | NUR ---
PT IN BED RESTING. DENIES PAIN AT THIS TIME. NO S/S OF RESP DISTRESS. CALL LIGHT WITHIN REACH, BED LOCKED IN LOWEST POSITION.
[2018-03-09] MEDS: HYDROCODONE/APAP 7.5MG-325MG 1 EA TAB PO PRN ×3 (01:45→18:43)
--- NOTE | 2018-03-09 01:53 | NUR ---
PT C/O PAIN TO R FOOT. GIVEN PAIN MED PRN.
--- NOTE | 2018-03-09 03:06 | NUR ---
ASSISTED PT STANDING UP TO USE URINAL AND POSITIONED PT BACK TO BED. BED LOCKED IN LOWEST POSITION, REFUSES BED ALARM.
--- NOTE | 2018-03-09 03:08 | NUR ---
NOTED SEROUS DRAINAGE TO DRESSING ON R FOOT. REINFORCED DRESSING WITH EXTRA GAUZE AND SECURED WITH KERLIX AND TAPE.
--- NOTE | 2018-03-09 04:21 | NUR ---
PT APPEARS TO BE RESTING QUIETLY. NO C/O PAIN AT THIS TIME. NO S/S OF RESP DISTRESS. CALL LIGHT WITHIN REACH AND BED LOCKED IN LOWEST POSITION.
[2018-03-09] MEDS: TACROLIMUS 1 MG CAP PO SCH ×2 (05:33→17:43)
[2018-03-09] MEDS: AMPICILLIN TRIHYDRATE 500MG CAPSULE PO SCH ×5 (05:33→23:35)
[2018-03-09] MEDS: INSULIN LISPRO 100 UNIT/1 ML 3ML VIAL SQ SCH ×4 (07:30→21:52)
[2018-03-09] MEDS: ALLOPURINOL 300 MG TAB PO SCH (09:33)
[2018-03-09] MEDS: PREDNISONE 5 MG TAB PO SCH (09:33)
[2018-03-09] MEDS: CALCITRIOL 0.25 MCG CAP PO SCH (09:33)
[2018-03-09] MEDS: SODIUM BICARBONATE 650 MG TAB PO SCH ×2 (09:33→17:24)
--- NOTE | 2018-03-09 10:50 | Progress Note ---
DATE: March 09, 2018 SUBJECTIVE: Patient seen at bedside accompanied by spouse. Doing better. Denies any history of fever, chills, nausea, or vomiting. OBJECTIVE VITALS: Afebrile, pulse rate 90, respirations 18, blood pressure 115/59, O2 saturation 95%. EXTREMITIES: There is a bloody strikethrough noted to the dressing of the right foot. Ulceration getting better. Granular fibrotic base noted. No bone. It is down to plantar fascial level. LABS: Show a white blood cell count of 6.4. ASSESSMENT: Charcot foot with a grade 3 ulcer with cellulitis. PLAN: Continue local wound care with Santyl followed by diluted wet-to-dry Betadine. Continue IV antibiotics, such as cefepime and ampicillin p.o. Will continue to follow. Job#: [id number] SYDNI
[2018-03-09] MEDS: CEFEPIME 1GM/NS 0.9% 50 ML 50 ML IV SCH (11:32)
[2018-03-09] MEDS: FUROSEMIDE INJ 10 MG/ML 4 ML VIAL IV SCH (11:32)
[2018-03-09] MEDS: COLLAGENASE OINTMENT 30 GM TUBE TP SCH (11:32)
[2018-03-09] MEDS: INS LISP PRO/LISP HUMAN 75/25 100 UNITS/ML VIAL SC SCH ×4 (12:20→21:52)
[2018-03-09] MEDS ORDERED: FUROSEMIDE INJ 10 MG/ML 4 ML VIAL IV ONE (16:00)
--- NOTE | 2018-03-09 17:35 | NUR ---
Nutrition Intervention Note RD Recommendation(s) for Physician: - Continue ADA diet as ordered - Rec Glucerna BID to promote PO intake - Pt refused diet education, handout was given. -02/24 Plan of Care: RD following, monitoring for tolerance and adequacy Nutrition reason for involvement: Follow up RD Assessment (03/09) Chart reviewed. Visited pt in the room. Pt reports appetite not been good. RN recorded 25-75% meal intake. No GI complains noted. Pt is interested in protein supplements. Will notify RN. Will continue to monitor and follow. (03/02) Chart reviewed. Visited pt in the room. Pt reports improved appetite since admission. RN recorded ~100% PO intake. No GI complains noted. Colostomy bag presents. Will continue to monitor and follow. (02/24) Chart reviewed. 63yo M, who is admitted for chronic diabetic foot ulcer. Television Inspector has been consulted. Visited pt in the room. Pt reports good appetite without any GI complains. Colostomy bag presents. Pt denies any chewing or swallowing difficulty. No recent weight loss reported. Offered diet education but pt is not interested. Will continue to monitor and follow. Principal Problems/Diagnoses: 1. Uncontrolled diabetes. 2. Diabetic foot complications. 3. Concomitant Charcot. 4. Nonhealing diabetic ulceration: Failed outpatient treatment. PMH: Diabetes mellitus with diabetic peripheral neuropathy, peripheral arterial disease, stage-3 kidney failure, s/p kidney transplant. GI: Colostomy bag presents Skin: Per wound care, pt has diabetic foot ulcer of right foot plantar ulcer full thickness that is heavily exudating purulent drainage. Palpable bone noted. Labs: (03/09) no lab since 03/08 (03/02) no lab since 02/24 (02/24) Na 135 L, K 2.8 L, BUN 50 H, Creatinine 1.96 H, Glucose 152 H, HbA1c 8.1 Meds: sodium bicarb, insulin, prednisone, vitamin D Ht: 67in Wt: 215.25lb 02/24; 220lb 03/02; 230.26lb 03/09 BMI: 33.7kg/m2 IBW: 148lb Malnutrition Evaluation (02/24) The patient does not meet criteria for a specified degree of malnutrition at this time. Will re-evaluate at follow-up as appropriate. Nutrition Prescription (Diet Order): ADA diet Diet Adequacy: Not meeting calorie needs, not meeting protein needs Diet Education Needs Assessment: Diet education indicated, but patient declined. Nutrition Care Level: low Nutrition Diagnosis: Increased protein needs related to altered skin integrity as evidenced by diabetic foot ulcer of right foot plantar ulcer w full thickness. Goal: Patient will meet 75-100% of estimated needs by follow up Progress: progressing Interventions: Carbohydrate - modified diet, Commercial food, Multivitamin/mineral supplement therapy Monitoring/Evaluation: total energy intake, Total protein intake, Modified diet, supplement, Weight change Signed: Suyapa Rose MS, RD, LD
[2018-03-09] MEDS: METOPROLOL SUCCINATE 25 MG TAB XL PO PRN (17:44)
[2018-03-09] MEDS: HYDRALAZINE HCL 25 MG TAB PO PRN (17:45)
--- NOTE | 2018-03-09 18:07 | NUR ---
AWAIT APPROVAL FROM [employer] FOR [facility] PT ONLY HAS A FEW MORE DAYS FOR IV ABX, WOUND CARE NO PT EVAL PATRIA MEZA AT [facility] REQUESTING SNF EVAL PT WAS AMBULATING PRIOR TO HOSPITALIZATION, SLOWLY AND WITH WALKER PER PT AND CM CALLED DR PALACIOS (COVERING FOR DR RANGEL) ORDERS FOR P.T. EVAL NWB RIGHT FOOT WILL NEED 2 DAYS OF P.T. NOTES FOR [place] [facility] APPROVAL FAX P.T. NOTES WHEN AVAILABLE Addendum: 03/10/18 at 1013 by Clair Darby CM patria meza at [facility] requesting p.t. blanquita
--- NOTE | 2018-03-09 18:46 | NUR ---
pt in bed ,continue on iv antibiotics and pain management, no s/s of distress noted
--- NOTE | 2018-03-09 19:10 | NUR ---
RECEIVED PT IN BED AWAKE AND ALERT. AT BEDSIDE. NO RESP DISTRESS. WOUND CARE DONE. CALL LIGHT WITHIN REACH AND INSTRUCTED TO CALL FOR ASSISTANCE. PT VERBALIZED UNDERSTANDING.
[2018-03-09] MEDS: INSULIN DETEMIR 100 UNIT/ML PEN SQ SCH (21:00)
[2018-03-10] VITALS (7 sets, daily range): BP systolic 122–183; BP diastolic 56–79
[2018-03-10] MEDS: HYDROCODONE/APAP 7.5MG-325MG 1 EA TAB PO PRN ×2 (00:49→09:50)
--- NOTE | 2018-03-10 00:50 | NUR ---
PT C/O PAIN TO R SHOULDER AND ELBOW 10/17. GIVEN PRN PAIN MED.
--- NOTE | 2018-03-10 01:02 | NUR ---
BP ELEVATED. PT REFUSES PRN BP MEDICATION. PT STATED WILL TAKE PRN BP MED IF NEXT BP IS ELEVATED.
[2018-03-10] MEDS: HYDRALAZINE HCL 25 MG TAB PO PRN (01:04)
--- NOTE | 2018-03-10 04:30 | NUR ---
PT IN BED RESTING WELL. NO S/S OF RESP DISTRESS. WOUND CARE PERFORMED. OLD DRESSING WITH MODERATE AMT OF BLOOD RED DRAINAGE. REPLACED WITH STERILE KERLIX, GAUZE, AND SECURED WITH TAPE.
[2018-03-10] MEDS: TACROLIMUS 1 MG CAP PO SCH ×2 (05:07→17:40)
[2018-03-10] MEDS: AMPICILLIN TRIHYDRATE 500MG CAPSULE PO SCH ×3 (05:07→17:40)
[2018-03-10 05:17] LABS: BASOPHILS % 0.5 % (0.0-1.0); EOSINOPHILS # (AUTO) 0.2 (0.0-0.4); EOSINOPHILS % 1.8 % (0.0-6.0); HEMATOCRIT 24.3 % (38.2-49.6); HEMOGLOBIN 7.7 g/dL (14.0-18.0); LYMPHOCYTES # (AUTO) 1.4 (1.0-3.2); LYMPHOCYTES % 15.4 % (18.0-39.1); MEAN CORPUSCULAR HEMOGLOBIN 28.3 pg (28-32); MEAN CORPUSCULAR HGB CONC 31.7 g/dL (31-35); MEAN CORPUSCULAR VOLUME 89.3 fL (81-99); MONOCYTES # (AUTO) 0.7 (0.2-0.8); MONOCYTES % 7.7 % (4.4-11.3); NEUTROPHILS # (AUTO) 6.5 (2.1-6.9); NEUTROPHILS % 73.7 % (38.7-80.0); PLATELET COUNT 102 x10e3/uL (140-360); RED BLOOD COUNT 2.72 x10e6/uL (4.3-5.7); RED CELL DISTRIBUTION WIDTH 16.5 % (11.7-14.4)
[2018-03-10 05:32] LABS: INR 5.02
[2018-03-10 05:37] LABS: ANION GAP 14.9 mmol/L (8-16); CALCIUM 8.7 mg/dL (8.4-10.2); CREATININE, SERUM 2.01 mg/dL (0.72-1.25); POTASSIUM 3.9 mmol/L (3.5-5.1); PROTHROMBIN TIME 49.7 seconds (11.9-14.5)
[2018-03-10] MEDS: INSULIN LISPRO 100 UNIT/1 ML 3ML VIAL SQ SCH ×4 (07:30→21:00)
[2018-03-10] MEDS: INS LISP PRO/LISP HUMAN 75/25 100 UNITS/ML VIAL SC SCH ×4 (08:30→21:00)
[2018-03-10] MEDS: PREDNISONE 5 MG TAB PO SCH (09:50)
[2018-03-10] MEDS: SODIUM BICARBONATE 650 MG TAB PO SCH ×2 (09:50→17:40)
[2018-03-10] MEDS: CEFEPIME 1GM/NS 0.9% 50 ML 50 ML IV SCH (09:50)
[2018-03-10] MEDS: FUROSEMIDE INJ 10 MG/ML 4 ML VIAL IV SCH ×2 (09:50→12:47)
[2018-03-10] MEDS: ALLOPURINOL 300 MG TAB PO SCH (09:50)
--- NOTE | 2018-03-10 10:28 | NUR ---
P.T. EVAL NOT DONE YET DUE TO HIGH INR
--- NOTE | 2018-03-10 12:13 | Progress Note ---
DATE: March 10, 2018 SUBJECTIVE: Patient seen at bedside, doing somewhat better. Denying any history of fever, chills, nausea, or vomiting. Accompanied by . OBJECTIVE VITAL SIGNS: Afebrile, pulse rate 91, respirations 20, blood pressure 178/71, O2 saturation 98%. EXTREMITIES: Ulceration to the left lower extremity looking better. Granulation tissue noted. No foul smell, down to plantar fascia very close to bone. LABS: Show white blood cell count of 8.8, hemoglobin 7.7. Has a high BUN and creatinine with INR of 5.02. ASSESSMENT 1. Charcot foot. 2. Grade III ulcer with cellulitis. PLAN: We will continue local wound care. Continue oral ampicillin 500 mg q.6h. Continue IV cefepime. We will continue to follow. Job#: [id number] CRISTIAN
[2018-03-10] MEDS: LIDOCAINE 5% PATCH TP SCH (12:20)
[2018-03-10] MEDS: METOPROLOL SUCCINATE 25 MG TAB XL PO SCH ×2 (12:47→17:40)
[2018-03-10] MEDS: HYDROCODONE/APAP 10MG-325MG TAB PO PRN ×2 (18:00→22:00)
--- NOTE | 2018-03-10 19:54 | NUR ---
RECEIVED PT IN BED AOX3 . RESPIRATIONS ARE EVEN AND UNLABORED .DENIES PAIN CALL LIGHT WITHIN REACH AND INSTRUCTED TO CALL FOR ASSISTANCE.
[2018-03-10] MEDS: INSULIN DETEMIR 100 UNIT/ML PEN SQ SCH (21:00)
[2018-03-10] MEDS: COLLAGENASE OINTMENT 30 GM TUBE TP SCH (22:57)
[2018-03-11] VITALS (7 sets, daily range): BP systolic 94–159; BP diastolic 50–71
[2018-03-11] MEDS: AMPICILLIN TRIHYDRATE 500MG CAPSULE PO SCH ×4 (00:24→18:05)
[2018-03-11] MEDS: HYDROCODONE/APAP 10MG-325MG TAB PO PRN ×3 (02:00→22:00)
[2018-03-11] MEDS: TACROLIMUS 1 MG CAP PO SCH ×2 (05:58→18:05)
--- NOTE | 2018-03-11 06:05 | NUR ---
PT RESTED DURING THE NIGHT C/O PAIN GIVEN ORDERED PAIN MEDICATION.CALL LIGHT WITH IN REACH .CONTINUE TO MONITOR
--- NOTE | 2018-03-11 07:18 | NUR ---
PATIENT IN BED RESTING WITH NO S/S OF DISCOMFORT. COLOSTOMY INTACT TO LEFT ABDOMEN, BRUISES TO BOTH ARMS, RIGHT FOOT DRESSING DRY AND INTACT. BED IN LOWER POSITION, CALL LIGHT AT REACH.
--- NOTE | 2018-03-11 07:24 | NUR ---
REPORT GIVEN TO THE ONCOMING NURSE.
[2018-03-11] MEDS: INS LISP PRO/LISP HUMAN 75/25 100 UNITS/ML VIAL SC SCH ×4 (07:30→21:00)
[2018-03-11] MEDS: INSULIN LISPRO 100 UNIT/1 ML 3ML VIAL SQ SCH ×4 (07:30→21:00)
[2018-03-11] MEDS: FUROSEMIDE INJ 10 MG/ML 4 ML VIAL IV SCH ×2 (08:40→12:50)
[2018-03-11] MEDS: METOPROLOL SUCCINATE 25 MG TAB XL PO SCH ×2 (09:00→17:41)
[2018-03-11] MEDS: LIDOCAINE 5% PATCH TP SCH (09:00)
[2018-03-11] MEDS: ALLOPURINOL 300 MG TAB PO SCH (09:40)
[2018-03-11] MEDS: CALCITRIOL 0.25 MCG CAP PO SCH (09:40)
[2018-03-11] MEDS: CEFEPIME 1GM/NS 0.9% 50 ML 50 ML IV SCH (09:40)
[2018-03-11] MEDS: SODIUM BICARBONATE 650 MG TAB PO SCH ×2 (09:40→17:41)
[2018-03-11] MEDS: PREDNISONE 5 MG TAB PO SCH (09:40)
--- NOTE | 2018-03-11 09:52 | Progress Note ---
DATE: March 11, 2018 SUBJECTIVE: Patient at bedside, doing somewhat better. Denies any history of fever, chills, nausea, or vomiting. OBJECTIVE VITAL SIGNS: Afebrile. Pulse rate 78, respiration 18, blood pressure 94/59, O2 saturation 99%. Has a white blood cell count of 8.2. EXTREMITIES: Ulceration to the right lower extremity, continues to improve, more than 4 to 5 cm in diameter, down to the plantar fascial level with granulation tissue noted with no foul smell. ASSESSMENT: Charcot foot. Grade 3 ulcer with peripheral neuropathy. PLAN: Will continue Santyl followed by dilute wet-to-dry Betadine. Continue oral ampicillin and IV cefepime, continue offloading. Will continue to follow. Job#: [id number] TIMI
[2018-03-11] MEDS: COLLAGENASE OINTMENT 30 GM TUBE TP SCH (12:50)
--- NOTE | 2018-03-11 17:00 | NUR ---
PATIENT C/O SWELLING TO LEFT ARM, NOTIFIED. ORDER RECEIVED TO ELEVATED LEFT ARM ON PILLOW. ORDER IMPLEMENTED. FAMILY AT BED SIDE, CALL LIGHT AT REACH.
--- NOTE | 2018-03-11 19:46 | NUR ---
RECEIVED PATIENT IN BED AOX3 RESPIRATIONS ARE EVEN .AND UNLABORED. NO ACUTE DISTRESS NOTED. FAMILY AT BEDSIDE. CALL LIGHT WITHIN REACH. CONTINUE TO MONITOR
--- NOTE | 2018-03-11 20:05 | NUR ---
LEFT ARM SWELLING AND ELEVATED .C/O PAIN .CONTINUE TO MONITOR
[2018-03-11] MEDS: INSULIN DETEMIR 100 UNIT/ML PEN SQ SCH (21:00)
[2018-03-12] VITALS (9 sets, daily range): BP systolic 108–166; BP diastolic 57–74
[2018-03-12] MEDS: HYDROCODONE/APAP 10MG-325MG TAB PO PRN ×3 (02:00→20:33)
[2018-03-12 05:46] LABS: INR 3.93
[2018-03-12 05:47] LABS: PROTHROMBIN TIME 41.1 seconds (11.9-14.5)
[2018-03-12] MEDS: TACROLIMUS 1 MG CAP PO SCH ×2 (05:51→18:51)
[2018-03-12] MEDS: AMPICILLIN TRIHYDRATE 500MG CAPSULE PO SCH ×5 (05:51→23:56)
[2018-03-12 05:53] LABS: BASOPHILS % 0.4 % (0.0-1.0); EOSINOPHILS # (AUTO) 0.2 (0.0-0.4); EOSINOPHILS % 2.2 % (0.0-6.0); HEMOGLOBIN 7.7 g/dL (14.0-18.0); LYMPHOCYTES # (AUTO) 1.5 (1.0-3.2); LYMPHOCYTES % 19.9 % (18.0-39.1); MEAN CORPUSCULAR HEMOGLOBIN 29.5 pg (28-32); MEAN CORPUSCULAR HGB CONC 33.5 g/dL (31-35); MEAN CORPUSCULAR VOLUME 88.1 fL (81-99); MONOCYTES % 12.3 % (4.4-11.3); NEUTROPHILS # (AUTO) 4.9 (2.1-6.9); NEUTROPHILS % 63.8 % (38.7-80.0); PLATELET COUNT 91 x10e3/uL (140-360); RED BLOOD COUNT 2.61 x10e6/uL (4.3-5.7); RED CELL DISTRIBUTION WIDTH 16.3 % (11.7-14.4)
[2018-03-12 05:56] LABS: ALBUMIN 2.5 g/dL (3.5-5.0); ALBUMIN/GLOBULIN RATIO 0.9 (0.8-2.0); ANION GAP 12.5 mmol/L (8-16); CALCIUM 8.6 mg/dL (8.4-10.2); CREATININE, SERUM 1.68 mg/dL (0.72-1.25); POTASSIUM 3.5 mmol/L (3.5-5.1)
--- NOTE | 2018-03-12 06:22 | NUR ---
C/P PAIN A R LEG AND LEFT SHOULDER .GIVEN ORDERD PAIN MEDICATION .FAMILY AT THE BEDSIDE .CALL LIGHT WITH IN REACH /CONTINUE TO MONITOR
--- NOTE | 2018-03-12 07:17 | NUR ---
REPORT GIVEN TO THE ONCOMING NURSE.
--- NOTE | 2018-03-12 07:20 | NUR ---
PATIENT IN BED RESTING WITH EYES CLOSED, NO RESPIRATORY DISTRESS OBSERVED. DRESSING INTACT TO RIGHT FOOT INTACT. BED IN LOWER POSITION, CALL LIGHT AT REACH.
[2018-03-12] MEDS: INS LISP PRO/LISP HUMAN 75/25 100 UNITS/ML VIAL SC SCH ×4 (07:30→22:43)
[2018-03-12] MEDS: INSULIN LISPRO 100 UNIT/1 ML 3ML VIAL SQ SCH ×4 (07:30→22:43)
[2018-03-12] MEDS: FUROSEMIDE INJ 10 MG/ML 4 ML VIAL IV SCH ×2 (08:00→12:00)
--- NOTE | 2018-03-12 09:15 | Progress Note ---
DATE: March 12, 2018 SUBJECTIVE: Patient seen at bedside. Feeling better. Denies any history of fever, chills, nausea, or vomiting. OBJECTIVE VITAL SIGNS: Afebrile. Pulse 89. Respirations 18. Blood pressure 156/67. O2 saturation 95%. LABS: White blood cell count 7.74, hemoglobin 7.7, hematocrit 23.0 with a platelet count of 91. Ulceration to the right lower extremity continues to get better. Granulation tissue noted. Periwound cellulitis with negative foul smell down to the plantar fascia level. ASSESSMENT: Grade-3 ulcer, right foot. Charcot foot with periwound cellulitis. PLAN: Will continue antibiotics. Continue local wound care with Santyl followed by diluted wet-to-dry. Continue offloading. Will continue to follow. Job#: [id number]
[2018-03-12] MEDS: CEFEPIME 1GM/NS 0.9% 50 ML 50 ML IV SCH (09:30)
[2018-03-12] MEDS: LIDOCAINE 5% PATCH TP SCH (09:31)
[2018-03-12] MEDS: METOLAZONE 5 MG TAB PO SCH (09:31)
[2018-03-12] MEDS: SODIUM BICARBONATE 650 MG TAB PO SCH ×2 (09:31→17:15)
[2018-03-12] MEDS: ALLOPURINOL 300 MG TAB PO SCH (09:31)
[2018-03-12] MEDS: METOPROLOL SUCCINATE 25 MG TAB XL PO SCH ×2 (09:31→17:00)
[2018-03-12] MEDS: COLLAGENASE OINTMENT 30 GM TUBE TP SCH (09:31)
[2018-03-12] MEDS: PREDNISONE 5 MG TAB PO SCH (09:31)
--- NOTE | 2018-03-12 11:33 | NUR ---
PATIENT IN ROOM EXERCISING WITH PHYSICAL THERAPY, NO RESPIRATORY DISTRESS OBSERVED. WILL CONTINUE TO MONITOR.
--- NOTE | 2018-03-12 12:34 | Progress Note ---
DATE: March 12, 2018 MEDICINE PROGRESS NOTE SUBJECTIVE: I am covering for Dr. Herbert. Patient is currently here with diabetic foot ulcers, requiring some debridement but has supratherapeutic INR. Currently doing well. No other complaints. VITAL SIGNS: Temperature is 97.2, pulse 77, respiratory rate is 18, blood pressure 136/61, pulse ox 95% on room air. LAB FINDINGS: White count 7.7, hemoglobin 7.7, hematocrit 23, platelets of 91. Coagulation shows INR of 3.93. Chemistry: Sodium 133, potassium is 3.5, chloride 97, bicarb 27, anion gap of 12, BUN 43, creatinine 1.68, glucose is 91. Urinalysis found to be negative. MICROBIOLOGY: Wound culture: Pseudomonas aeruginosa, Enterococcus faecalis, VRE. Blood cultures were negative. IMAGING STUDIES: None. PHYSICAL EXAMINATION GENERAL: Not in acute distress. Alert and oriented x3. Cooperative on examination. HEENT: Head is normocephalic, atraumatic. Eyes: Pupils equal, round and reactive to light bilaterally. Extraocular movements intact bilaterally. NECK: Supple. Good range of motion. Throat with no evidence of any erythema or exudates in the posterior pharynx. Has poor dentition. PULMONARY: Clear to auscultation bilaterally. No wheezing. No rales. No rhonchi. No crackles appreciated. CARDIOVASCULAR: Positive S1 and S2. No murmurs, rubs or gallops appreciated. ABDOMEN: Soft, nondistended and nontender to palpation. Bowel sounds present. MUSCULOSKELETAL: Strength is 5/5 throughout. No evidence of any musculoskeletal deficit on examination. No weakness appreciated. NEUROLOGICAL: Cranial nerves II through XII are grossly intact. No evidence of any neurological deficits on exam. SKIN: Intact. Warm to touch. Good cap refill. PSYCHIATRIC: Normal affect and mood. EXTREMITIES: No edema. Good range of motion throughout. IMPRESSIONS 1. Right foot wound with underlying vancomycin-resistant enterococcus. 2. Multiple wounds. 3. Colostomy. 4. Uncontrolled type 2 diabetes. 5. Chronic kidney disease stage 3. 6. Supratherapeutic international normalized ratio. PLAN: Continue with antibiotics per ID. In relation to his renal failure, nephrology is consulted. Podiatry is monitoring the wounds and needing debridement. His INR is improving at 3.3. Will monitor very closely. Get a.m. labs. Discussed the case with nursing staff and nurse. Job#: [id number] TA
[2018-03-12] MEDS: DIPHENHYDRAMINE HCL 25 MG CAP PO PRN ×2 (14:55→21:00)
[2018-03-12] MEDS: HYDRALAZINE HCL 25 MG TAB PO SCH ×2 (15:00→21:28)
[2018-03-12] MEDS: EPOETIN ALFA 10000 UNIT/ML VIAL SC SCH (15:22)
--- NOTE | 2018-03-12 15:26 | NUR ---
PATIENT C/O MD SWATI NOTIFIED. NEW ORDER RECEIVED AND IMPLEMENTED. PATIENT ASSISTED BACK TO BED, CALL LIGHT AT REACH.
[2018-03-12 16:51] LABS: ANION GAP 13.4 mmol/L (8-16); CALCIUM 8.9 mg/dL (8.4-10.2); CREATININE, SERUM 1.73 mg/dL (0.72-1.25); POTASSIUM 3.4 mmol/L (3.5-5.1)
--- NOTE | 2018-03-12 17:00 | NUR ---
PATIENT SITTING AT BED SIDE EATING DINNER, NO MORE C/O ITCHING. CALL LIGHT AT REACH.
[2018-03-12] MEDS ORDERED: POTASSIUM CHLORIDE 20 MEQ TAB CR PO NR (19:11)
--- NOTE | 2018-03-12 19:12 | NUR ---
SPOKE WITH MD REGARDING ABNORMAL LAB RESULTS, NEW ORDER RECEIVED.
--- NOTE | 2018-03-12 19:15 | NUR ---
Completed BS rounds with morning nurse. Pt alert to name. Lying in bed 30 degrees. Denies pain at this time. No acute distress noted. at bedside. Will continue to monitor.
[2018-03-12] MEDS: INSULIN DETEMIR 100 UNIT/ML PEN SQ SCH (22:44)
[2018-03-13] VITALS (8 sets, daily range): BP systolic 123–173; BP diastolic 57–70
[2018-03-13] MEDS: DIPHENHYDRAMINE HCL 25 MG CAP PO PRN ×2 (03:10→19:43)
[2018-03-13] MEDS: HYDROCODONE/APAP 10MG-325MG TAB PO PRN ×2 (06:10→10:35)
[2018-03-13] MEDS: AMPICILLIN TRIHYDRATE 500MG CAPSULE PO SCH ×3 (06:28→17:31)
[2018-03-13] MEDS: TACROLIMUS 1 MG CAP PO SCH ×2 (06:28→17:31)
[2018-03-13] MEDS: INSULIN LISPRO 100 UNIT/1 ML 3ML VIAL SQ SCH ×4 (07:30→21:27)
--- NOTE | 2018-03-13 07:41 | Progress Note ---
DATE: March 13, 2018 SUBJECTIVE: Patient is at bedside, doing somewhat better. Denying any history of fever, chills, nausea, or vomiting. OBJECTIVE VITAL SIGNS: Afebrile, pulse rate 97, respirations 20, blood pressure 135/63, O2 saturation 94%. EXTREMITIES: Ulceration to the right lower extremity improving slowly down to the plantar fascial level. Granular fibrotic base approximately 4 cm in diameter. LABS: Show a white blood cell count of 7.74, hemoglobin 7.7, hematocrit 23 with a platelet count of 91,000. ASSESSMENT: Grade 3 ulcer, Charcot foot with peripheral neuropathy. PLAN: Will continue local wound care with Santyl followed by diluted wet-to-dry. Continue antibiotics. Continue offloading. Continue local wound care. Job#: [id number] [place]
[2018-03-13 08:04] LABS: BASOPHILS % 0.5 % (0.0-1.0); EOSINOPHILS # (AUTO) 0.2 (0.0-0.4); EOSINOPHILS % 2.9 % (0.0-6.0); HEMATOCRIT 23.3 % (38.2-49.6); HEMOGLOBIN 7.6 g/dL (14.0-18.0); LYMPHOCYTES # (AUTO) 1.7 (1.0-3.2); LYMPHOCYTES % 21.7 % (18.0-39.1); MEAN CORPUSCULAR HEMOGLOBIN 28.9 pg (28-32); MEAN CORPUSCULAR HGB CONC 32.6 g/dL (31-35); MEAN CORPUSCULAR VOLUME 88.6 fL (81-99); MONOCYTES # (AUTO) 1.2 (0.2-0.8); NEUTROPHILS # (AUTO) 4.7 (2.1-6.9); PLATELET COUNT 93 x10e3/uL (140-360); RED BLOOD COUNT 2.63 x10e6/uL (4.3-5.7); RED CELL DISTRIBUTION WIDTH 16.4 % (11.7-14.4)
[2018-03-13 08:23] LABS: INR 3.44
[2018-03-13 08:27] LABS: ANION GAP 14.2 mmol/L (8-16); CALCIUM 8.5 mg/dL (8.4-10.2); CREATININE, SERUM 1.6 mg/dL (0.72-1.25); POTASSIUM 3.2 mmol/L (3.5-5.1)
[2018-03-13] MEDS: INS LISP PRO/LISP HUMAN 75/25 100 UNITS/ML VIAL SC SCH ×4 (09:00→21:26)
[2018-03-13] MEDS: FUROSEMIDE INJ 10 MG/ML 4 ML VIAL IV SCH ×2 (09:00→12:40)
--- NOTE | 2018-03-13 09:00 | NUR ---
Pt received resting in bed. Alert and oriented x4 but legally blind. Pt with left lower abdomen colostomy. Oriented to staff and surroundings. Encouraged to press call cobos if help needed. Contact precautions maintained. Dressing change to right foot done as ordered. Call cobos within reach. All meds given as ordered. Will monitor
[2018-03-13] MEDS: COLLAGENASE OINTMENT 30 GM TUBE TP SCH (09:01)
[2018-03-13] MEDS: HYDRALAZINE HCL 25 MG TAB PO SCH ×3 (09:01→21:25)
[2018-03-13] MEDS: LIDOCAINE 5% PATCH TP SCH (09:01)
[2018-03-13] MEDS: CALCITRIOL 0.25 MCG CAP PO SCH (09:01)
[2018-03-13] MEDS: ALLOPURINOL 300 MG TAB PO SCH (09:01)
[2018-03-13] MEDS: PREDNISONE 5 MG TAB PO SCH (09:01)
[2018-03-13] MEDS: METOLAZONE 5 MG TAB PO SCH (09:01)
[2018-03-13] MEDS: METOPROLOL SUCCINATE 25 MG TAB XL PO SCH ×2 (09:01→17:31)
[2018-03-13] MEDS: SODIUM BICARBONATE 650 MG TAB PO SCH ×2 (09:01→17:31)
--- NOTE | 2018-03-13 09:20 | NUR ---
PT UVALDO COMPLETED ON 03/12/18. CALL TO [facility] FOR FAX # TO [place]. SANITATION DIRECTOR GAVE FAX #. FAXED UPDATED PT NOTES TO [phone].
[2018-03-13 10:16] LABS: ANISOCYTOSIS SLIGHT; BAND NEUTROPHILS % (MANUAL) 1 %; LYMPHOCYTES % (MANUAL) 22 % (19-48); METAMYELOCYTES % (MANUAL) 1 % (0-0); MONOCYTES % (MANUAL) 10 % (3.4-9.0); MYELOCYTES % (MANUAL) 1 % (0-0); NEUTROPHILS % (MANUAL) 64 % (40-74)
[2018-03-13 10:17] LABS: HYPOCHROMASIA MODERATE; PLATELET ESTIMATE SLIGHTLY DECREASED; RBC MORPHOLOGY COMMENT NORMAL
[2018-03-13 10:18] LABS: OVALOCYTES FEW; PLATELET MORPHOLOGY COMMENT NORMAL
[2018-03-13] MEDS ORDERED: CEFEPIME 1GM/NS 0.9% 50 ML 50 ML IV SCH (10:45)
[2018-03-13] MEDS ORDERED: POTASSIUM CHLORIDE 10MEQ EA PO STA (11:35)
[2018-03-13] MEDS ORDERED: TOPROL XL25 MG PO (11:42)
[2018-03-13] MEDS ORDERED: HYDRALAZINE HCL25 MG PO (11:42)
[2018-03-13] MEDS ORDERED: SODIUM BICARBO650 MG PO (11:42)
[2018-03-13] MEDS ORDERED: Insulin Detemir SQ (11:42)
[2018-03-13] MEDS ORDERED: SODIUM CHLORIDE 0.9% 250ML 250 ML ONE (11:56)
--- NOTE | 2018-03-13 12:47 | Progress Note ---
DATE: March 13, 2018 MEDICINE PROGRESS NOTE SUBJECTIVE: The patient is doing well today with no other complaints. VITAL SIGNS: He is afebrile. Vital signs are stable. LABS: Reviewed and stable. PHYSICAL EXAMINATION GENERAL: Not in acute distress. Alert and oriented x3. Cooperative on examination. HEENT: Head is normocephalic, atraumatic. Eyes: Pupils equal, round and reactive to light bilaterally. Extraocular movements intact bilaterally. NECK: Supple. Good range of motion. Throat with no evidence of any erythema or exudates in the posterior pharynx. Has poor dentition. PULMONARY: Clear to auscultation bilaterally. No wheezing. No rales. No rhonchi. No crackles appreciated. CARDIOVASCULAR: Positive S1 and S2. No murmurs, rubs or gallops appreciated. ABDOMEN: Soft, nondistended and nontender to palpation. Bowel sounds present. MUSCULOSKELETAL: Strength is 5/5 throughout. No evidence of any musculoskeletal deficit on examination. No weakness appreciated. NEUROLOGICAL: Cranial nerves II through XII are grossly intact. No evidence of any neurological deficits on exam. IMPRESSIONS 1. Right foot wound with vancomycin-resistant enterococcus. 2. Multiple wounds. 3. Colostomy. PLAN: Continue IV antibiotics. Pending SNF. A.M. labs. Will continue to follow up. Job#: [id number]
[2018-03-13] MEDS: AMOXICILLIN/CLAVULANATE K 500 MG TAB PO SCH (18:15)
[2018-03-13] MEDS: FUROSEMIDE 40 MG TAB PO SCH (18:15)
--- NOTE | 2018-03-13 18:15 | NUR ---
Pt for transfer to [facility] for IV antibiotics but Augmentin PO ordered by ID. Pt's stated that pt can go home instead of the custodial for oral medication. Dr. Boggs notified. Discharge on hold until AM. Nurse Brittanie at [facility] notified. Nurse lump room supervisor notified also. Will endorse to next shift
--- NOTE | 2018-03-13 19:00 | NUR ---
Completed BS rounds with morning nurse. Pt alert to name. Pt lying in bed 30 degrees. Denies pain at this time. c/o itching. No acute distress noted.
[2018-03-13] MEDS: INSULIN DETEMIR 100 UNIT/ML PEN SQ SCH (21:27)
[2018-03-14] VITALS: BP 181/68
[2018-03-14] MEDS: HYDROCODONE/APAP 10MG-325MG TAB PO PRN ×3 (00:11→11:09)
[2018-03-14] MEDS: AMPICILLIN TRIHYDRATE 500MG CAPSULE PO SCH ×2 (00:31→06:28)
[2018-03-14] MEDS: DIPHENHYDRAMINE HCL 25 MG CAP PO PRN ×2 (02:00→12:50)
[2018-03-14 04:00] VITALS: BP 125/61
[2018-03-14] MEDS: FUROSEMIDE 40 MG TAB PO SCH (06:28)
[2018-03-14] MEDS: TACROLIMUS 1 MG CAP PO SCH (06:28)
[2018-03-14] MEDS: INSULIN LISPRO 100 UNIT/1 ML 3ML VIAL SQ SCH ×2 (07:30→11:30)
[2018-03-14 07:33] LABS: BASOPHILS % 0.4 % (0.0-1.0); EOSINOPHILS # (AUTO) 0.2 (0.0-0.4); HEMOGLOBIN 7.6 g/dL (14.0-18.0); LYMPHOCYTES # (AUTO) 1.9 (1.0-3.2); LYMPHOCYTES % 20.9 % (18.0-39.1); MEAN CORPUSCULAR HEMOGLOBIN 28.4 pg (28-32); MEAN CORPUSCULAR HGB CONC 31.7 g/dL (31-35); MEAN CORPUSCULAR VOLUME 89.6 fL (81-99); MONOCYTES # (AUTO) 1.3 (0.2-0.8); MONOCYTES % 14.7 % (4.4-11.3); NEUTROPHILS # (AUTO) 4.8 (2.1-6.9); PLATELET COUNT 109 x10e3/uL (140-360); RED BLOOD COUNT 2.68 x10e6/uL (4.3-5.7); RED CELL DISTRIBUTION WIDTH 16.5 % (11.7-14.4)
[2018-03-14 07:54] LABS: ANION GAP 13.3 mmol/L (8-16); CALCIUM 8.8 mg/dL (8.4-10.2); CREATININE, SERUM 1.95 mg/dL (0.72-1.25); MAGNESIUM 1.2 MG/DL (1.3-2.1); POTASSIUM 3.3 mmol/L (3.5-5.1)
[2018-03-14 08:00] VITALS: BP 159/70
[2018-03-14 08:09] LABS: INR 2.79; PROTHROMBIN TIME 31.4 seconds (11.9-14.5)
[2018-03-14 08:48] VITALS: BP 159/70
[2018-03-14] MEDS: INS LISP PRO/LISP HUMAN 75/25 100 UNITS/ML VIAL SC SCH ×2 (08:48→11:30)
[2018-03-14] MEDS: PREDNISONE 5 MG TAB PO SCH (08:48)
[2018-03-14] MEDS: HYDRALAZINE HCL 25 MG TAB PO SCH (08:48)
[2018-03-14] MEDS: SODIUM BICARBONATE 650 MG TAB PO SCH (08:48)
[2018-03-14] MEDS: AMOXICILLIN/CLAVULANATE K 500 MG TAB PO SCH (08:48)
--- NOTE | 2018-03-14 08:48 | NUR ---
Pt received resting in bed with at bedside. Emotional support given. Call cobos within reach. All meds given as ordered. Pt for discharge today. Will monitor
[2018-03-14] MEDS: ALLOPURINOL 300 MG TAB PO SCH (08:49)
[2018-03-14] MEDS: COLLAGENASE OINTMENT 30 GM TUBE TP SCH (08:49)
[2018-03-14] MEDS: METOPROLOL SUCCINATE 25 MG TAB XL PO SCH (08:49)
[2018-03-14] MEDS: LIDOCAINE 5% PATCH TP SCH (08:49)
[2018-03-14] MEDS ORDERED: AMOXICILLIN/CLAVULANATE K 250 MG TAB PO SCH (09:00)
[2018-03-14 12:00] VITALS: BP 130/58
[2018-03-14] MEDS ORDERED: DIPHENHYDRAMINE HCL 25 MG CAP PO PRN (12:00)
[2018-03-14] MEDS: EPOETIN ALFA 10000 UNIT/ML VIAL SC SCH (12:49)
[2018-03-14] MEDS ORDERED: POTASSIUM CHLORIDE 10MEQ EA PO ONE (13:00)
[2018-03-14] MEDS ORDERED: MAGNESIUM SULFATE 2GM/50ML 50 ML IV ONE (13:00)
[2018-03-14 13:41] LABS: EOSINOPHILS % (MANUAL) 1 % (0-7); LYMPHOCYTES % (MANUAL) 27 % (19-48); MONOCYTES % (MANUAL) 12 % (3.4-9.0); NEUTROPHILS % (MANUAL) 60 % (40-74); NUCLEATED RED BLOOD CELLS 2; PLATELET ESTIMATE SLIGHTLY DECREASED; PLATELET MORPHOLOGY COMMENT NORMAL; RBC MORPHOLOGY COMMENT NORMAL
--- NOTE | 2018-03-14 13:48 | NUR ---
GEOVANY (F.B) spoke with member regarding recommended discharge plan for HH. Patient requires wound care and PT. Patient is aware and in agreement to discharge plan. Patient lives at home with his ,daughter, son in law and grand children. Patient has strong family support and involvement. Patient has had home cares services in the past with [facility] and would like to continue with their services.
--- NOTE | 2018-03-14 14:16 | NUR ---
GEOVANY Friedman) contacted [facility] [phone] to initiate home care referral. Answering service will contact [employer] regarding home care referral.
--- NOTE | 2018-03-14 14:24 | NUR ---
GEOVANY received call back from Communications Department Chairperson Forensic Nurse Katerina. GEOVANY will fax documents to [phone].
[2018-03-14] MEDS ORDERED: AUGMENTIN 500-1 EACH PO (15:11)
[2018-03-14] MEDS ORDERED: POTASSIUM CHLO20 ME1 PO (15:12)
--- NOTE | 2018-03-14 15:30 | NUR ---
Wound care done to right foot
--- NOTE | 2018-03-14 15:43 | Progress Note ---
DATE: March 14, 2018 MALE AGE: 63 SUBJECTIVE: Patient at bedside. Ready to go home. Denies any history of fever, chills, nausea, or vomiting. OBJECTIVE VITAL SIGNS: Afebrile, pulse rate 93, respiration 18, blood pressure 130/58, O2 saturation 94%. LABS: Noted. White blood cell count of 8.96, hemoglobin 7.6 with a platelet count of 109. Ulceration to the right foot is healing slowly. He has a Charcot deformity with some increased range of motion in the metatarsal joint area secondary to the above. ASSESSMENT: Grade 3 ulcer Charcot deformity with periwound cellulitis. PLAN: Okay to be discharged on oral antibiotics. Patient instructed to follow up within a couple of weeks. Upon discharge, dressing was changed. We will continue Santyl followed by diluted wet-to-dry. Home health will be ordered for local wound care. Orthotic walking boot dispensed, to be used when walking to offload the ulcer as best as possible. Job#: [id number] ARMAND
--- NOTE | 2018-03-14 16:05 | NUR ---
Pt and given discharge instructions regarding meds, diet, activities, home health orders, and follow up appointment. Both verbalized understanding of teaching. Left floor in wheelchair to private car
--- NOTE | 2018-03-15 01:13 | Discharge Summary ---
FINAL DISCHARGE DIAGNOSES 1. Multiple right foot wounds consistent with vancomycin-resistant Enterococci secondary to grade 3 ulcer with Charcot foot and peripheral neuropathy. 2. Foot cellulitis. 3. Chronic kidney disease, stage 3. 4. Hypomagnesemia, replaced with magnesium. 5. Hypokalemia, replaced with potassium. 6. Abdominal wall hematoma. CONSULTANTS 1. Infectious disease. 2. Podiatry. 3. Nephrology. VITAL SIGNS: Temperature is 98.7, pulse 73, respiratory rate is 18, blood pressure 159/70, pulse ox 95% on room air. LAB FINDINGS: White count of 8.8, hemoglobin 7.7, hematocrit is 24, platelets of 109. Coagulation, INR is 2.79. Chemistry; sodium 134, potassium 3.3, chloride 92, bicarb 22, anion gap of 13, BUN is 37, creatinine is 1.95. Troponins were negative. Albumin 2.5. LDL is 153. MICROBIOLOGY: Wound culture showed Pseudomonas and VRE. Blood cultures were negative. IMAGING STUDIES: He had a foot x-ray on 03/07/2018 that showed no evidence of acute displaced fracture or malalignment of bilateral feet. Findings are compatible with Charcot arthropathy of the right midfoot as seen on prior imaging studies. CT abdomen and pelvis was performed, shows interval development of moderate bilateral pleural effusions, development of right lower chest wall and right abdominal wall hematoma. CT of the extremities shows ulceration of the plantar midfoot with diffuse cellulitis and soft tissue gas. There is severe Charcot arthropathy of the midfoot with intra-arterial gas, unclear if it is secondary to Charcot joint or fungal infection. HOSPITAL COURSE: This is a 63-year-old male who came in with worsening right foot pain, found to have subcutaneous tissue infection with diabetic foot ulcers and Charcot foot. Podiatry and ID were consulted. Local debridement was performed at bedside. Wound culture was consistent with VRE and Pseudomonas. Patient was treated with IV antibiotics while here. Blood cultures were found to be negative. He was discharged on oral Augmentin for 2 total weeks per ID recommendations. Patient also has underlying CKD and also developed acute kidney injury on CKD for which nephrology was consulted and managed accordingly. Patient was then cleared by all consultants for discharge home. He will get home health with home PT and OT as well with local wound care. On the day of discharge, vital signs stable, labs remained stable. Patient was seen, evaluated, and examined thoroughly on the day of discharge, no other complaints. Patient verbalized understanding and agrees with plan of care to follow up accordingly as an outpatient with the primary care physician in 1 week and the consultants as described above, especially podiatry in about 2 weeks' time. MEDICATIONS: See med reconciliation form, including Augmentin 875 mg p.o. b.i.d. x14 days. CONDITION: Stable. DIET: Heart-healthy. In the event of any worsening symptoms, patient was advised to come back to the ED for further evaluation. Discharge summary took greater than 35 minutes. Job#: [id number] LPA
== END 2018-03-14 16:28 | DRG 622 ==
LOC: ER 13:13 → ERHOLD 18:19 → MED/SURG3 22:09
PROVIDERS: ADMIT Internal Medicine; ATTEND Internal Medicine
PROC: 0JBQ0ZZ Excision of Right Foot Subcutaneous Tissue and Fascia, Open Approach (ICD-10-PCS; principal; 2018-02-25)
DX: E11.69 Type 2 diabetes mellitus with other specified complication (principal); A48.0 Gas gangrene; E11.52 Type 2 diabetes mellitus with diabetic peripheral angiopathy with gangrene; S22.42XA Multiple fractures of ribs, left side, initial encounter for closed fracture; L97.414 Non-pressure chronic ulcer of right heel and midfoot with necrosis of bone; I13.0 Hypertensive heart and chronic kidney disease with heart failure and stage 1 through stage 4 chronic kidney disease, or unspecified chronic kidney disease; I50.32 Chronic diastolic (congestive) heart failure; E87.2 Acidosis; T86.11 Kidney transplant rejection; M86.9 Osteomyelitis, unspecified; N17.0 Acute kidney failure with tubular necrosis; E11.621 Type 2 diabetes mellitus with foot ulcer; R07.89 Other chest pain; L97.514 Non-pressure chronic ulcer of other part of right foot with necrosis of bone; Z79.4 Long term (current) use of insulin; W19.XXXA Unspecified fall, initial encounter; E11.22 Type 2 diabetes mellitus with diabetic chronic kidney disease; Z79.899 Other long term (current) drug therapy; F32.9 Major depressive disorder, single episode, unspecified; B95.2 Enterococcus as the cause of diseases classified elsewhere; Z16.22 Resistance to vancomycin related antibiotics; Z93.3 Colostomy status; E11.65 Type 2 diabetes mellitus with hyperglycemia; N18.3 Chronic kidney disease, stage 3 (moderate); E66.9 Obesity, unspecified; Z68.34 Body mass index [BMI] 34.0-34.9, adult; E11.319 Type 2 diabetes mellitus with unspecified diabetic retinopathy without macular edema; E83.42 Hypomagnesemia; E87.6 Hypokalemia; S30.1XXA Contusion of abdominal wall, initial encounter; S20.211A Contusion of right front wall of thorax, initial encounter; B96.5 Pseudomonas (aeruginosa) (mallei) (pseudomallei) as the cause of diseases classified elsewhere; E11.42 Type 2 diabetes mellitus with diabetic polyneuropathy; N03.8 Chronic nephritic syndrome with other morphologic changes; R79.1 Abnormal coagulation profile
CPT/HCPCS: 36415; 71045; 74176; 80048; 80053; 80061; 81001; 82728; 82948; 83036; 83540; 83605; 83735; 83880; 84100; 84466; 84484; 85025; 85610; 85651; 85730; 86850; 86900; 87040; 87071; 87186; 87205; 93005; 96372; 97139; 99284; J0692; J1815; J1940; J2020; J2405; J3370; J3475; J3480; J7030; J7050; J7507; J7512; Q4081

== ENCOUNTER 2018-03-20 16:12 | Inpatient (IN) | payer MEDICARE, OTHER ==
[~2018-03-20] VITALS: Ht 170.2 cm; Wt 89.0 kg
[~2018-03-20 16:12] MED LIST changes: +AUGMENTIN 500-1 EACH PO; +Insulin Detemir SQ; +POTASSIUM CHLO20 ME1 PO; +SODIUM BICARBO650 MG PO; +TOPROL XL25 MG PO
--- OUTSIDE RECORDS SUMMARY | 2018-03-20 16:17 | XMS REPORT | Clinical Summary ---
Author Author DEVIN [facility] Address Unknown Phone Unavailable Care Team Providers Care Equipment Operator/Laborer/Supervisor Name Role Phone Bam Mccarthy PCP Allergies [...] post kidney transplant 06/01/2013 Overview: ICD9 DX Bioinformatics Associate L ast Assessment & Plan: Graft function [...] Type Area Manufactur er 09/06/2016 4301- / [id number] Adhesion Barrier,Seprafilm 5x6 - Cement/Wong N/A: Abdomen GENZYME [id number] ler/Adhesi SURGICAL Implanted: Qty: 2 on 07/06/2014 by Naymit Amrit Elam MD 02/06/2017 4301- [id number] Adhesion Barrier,Seprafilm 5x6 - Cement/Wong N/A: Abdomen GENZYME [id number] ler/Adhesi SURGICAL Implanted: Qty: 1 on 01/31/2015 by Cherrish Amrit Trimble MD [id number] / / Stent,Uret Polaris 5fr X 10cm - Uro Stent BOSTON [id number] SCIENTIFIC Implanted: Qty: 1 on 05/24/2013 03/09/2016 [id number] / / [id number] Stent,Uret Polaris 5fr X 10cm - Uro Stent Right: Ureter BOSTON [id number] SCIENTIFIC Implanted: Qty: 1 on 01/21/2014 by Baljit Larson MD Results Not on fileafter 03/19/2017 Insurance Payer Benefit Subscriber ID Type Phone Address Plan / Group TEXANPLUS TEXANPLUS [facility] Advance Directives For more information, please contact: [facility] [address] [place] [id number] Date Inactivated Comments Code Status Date [...]
--- OUTSIDE RECORDS SUMMARY | 2018-03-20 16:25 | XMS REPORT | Clinical Summary ---
Author Author DEVIN [facility] Address Unknown Phone Unavailable Care Team Providers Care Curriculum Director Name Role Phone Bam Mccarthy PCP Allergies [...] post kidney transplant 06/01/2013 Overview: ICD9 DX Human Relations Manager L ast Assessment & Plan: Graft function [...] Type Area Manufactur er 09/06/2016 4301- / [id number] Adhesion Barrier,Seprafilm 5x6 - Cement/Wong N/A: Abdomen GENZYME [id number] ler/Adhesi SURGICAL Implanted: Qty: 2 on 07/06/2014 by [employer] Amrit Elam MD 02/06/2017 4301- [id number] Adhesion Barrier,Seprafilm 5x6 - Cement/Wong N/A: Abdomen GENZYME [id number] ler/Adhesi SURGICAL Implanted: Qty: 1 on 01/31/2015 by [employer] Amrit Trimble MD [id number] / / Stent,Uret Polaris 5fr X 10cm - Uro Stent BOSTON [id number] SCIENTIFIC Implanted: Qty: 1 on 05/24/2013 03/09/2016 [id number] / / [id number] Stent,Uret Polaris 5fr X 10cm - Uro Stent Right: Ureter [place] [id number] SCIENTIFIC Implanted: Qty: 1 on 01/21/2014 by Baljit Larson MD Results Not on fileafter 03/19/2017 Insurance Payer Benefit Subscriber ID Type Phone Address Plan / Group TEXANPLUS TEXANPLUS xxxxxxxxx [facility] Cont[facility] Advance Directives For more information, please contact: [facility] [address] [place] [phone] Date Inactivated Comments Code Status Date [...]
[2018-03-20 18:06] LABS: CLARITY,URINE CLOUDY (CLEAR); COLOR,URINE YELLOW (YELLOW); LEUKOCYTE ESTERASE ,URINE 1+ (NEGATIVE); NITRITE,URINE NEGATIVE (NEGATIVE); PROTEIN,URINE DIPSTICK 1+ (NEGATIVE)
[2018-03-20 18:07] LABS: BILIRUBIN,URINE NEGATIVE (NEGATIVE); KETONES,URINE NEGATIVE (NEGATIVE); URINE UROBILINOGEN 0.2 mg/dL (0.2 - 1)
[2018-03-20 18:08] LABS: BACTERIA,URINE MANY /HPF; EPITHELIAL CELLS,URINE MANY /LPF; RBC,URINE 0-5 /HPF (0-5); WBC,URINE (MAN) >50 /HPF (0-5); YEAST,URINE MANY
--- NOTE | 2018-03-20 18:43 | Diagnostic Imaging Report ---
EXAMINATION: CHEST SINGLE (NOT PORTABLE) INDICATION: Shortness of breath. COMPARISON: 02/24/18. FINDINGS: TUBES and LINES: None. LUNGS: Bilateral pulmonary venous congestion and interstitial edema with Stephen B lines. PLEURA: No pleural effusion or pneumothorax. HEART AND MEDIASTINUM: The cardiomediastinal silhouette is moderately enlarged. BONES AND SOFT TISSUES: No acute osseous lesion. Soft tissues are unremarkable. UPPER ABDOMEN: No free air under the diaphragm. IMPRESSION: Findings consistent with decompensated CHF. Signed by: Dr. Willie Gutiérrez M.D. on 03/20/2018 6:40 PM
[2018-03-20 19:23] LABS: BASOPHILS % 0.4 % (0.0-1.0); EOSINOPHILS # (AUTO) 0.1 (0.0-0.4); EOSINOPHILS % 1.5 % (0.0-6.0); HEMATOCRIT 30.9 % (38.2-49.6); HEMOGLOBIN 9.7 g/dL (14.0-18.0); LYMPHOCYTES % 15.4 % (18.0-39.1); MEAN CORPUSCULAR HGB CONC 31.4 g/dL (31-35); MEAN CORPUSCULAR VOLUME 92.5 fL (81-99); MONOCYTES # (AUTO) 0.6 (0.2-0.8); MONOCYTES % 8.9 % (4.4-11.3); NEUTROPHILS # (AUTO) 4.9 (2.1-6.9); NEUTROPHILS % 72.6 % (38.7-80.0); PLATELET COUNT 246 x10e3/uL (140-360); RED BLOOD COUNT 3.34 x10e6/uL (4.3-5.7); RED CELL DISTRIBUTION WIDTH 19.4 % (11.7-14.4)
[2018-03-20 19:28] LABS: INR 1.31; PROTHROMBIN TIME 17.4 seconds (11.9-14.5)
[2018-03-20 19:29] LABS: PARTIAL THROMBOPLASTIN TIME 28.2 seconds (23.8-35.5)
[2018-03-20 19:37] LABS: ALBUMIN 3.3 g/dL (3.5-5.0); ALBUMIN/GLOBULIN RATIO 1.2 (0.8-2.0); CALCIUM 9.6 mg/dL (8.4-10.2); CREATININE, SERUM 2.23 mg/dL (0.72-1.25)
[2018-03-20 19:45] LABS: CREATINE KINASE MB 1.5 ng/mL (0-5.0)
--- NOTE | 2018-03-20 20:30 | NUR ---
16 fr berger catheter inserted using sterile technique per md orders. 350cc clear yellow urine return noted. specimen collected and sent to lab per orders.
[2018-03-20] MEDS ORDERED: DEXTROSE 50% SYRINGE 50 ML IV PRN (20:45)
[2018-03-20] MEDS ORDERED: SODIUM CHLORIDE FLUSH 10 ML SYR INJ PRN (20:45)
[2018-03-20] MEDS ORDERED: FUROSEMIDE INJ 10 MG/ML 4 ML VIAL IV SCH (20:45)
[2018-03-20] MEDS ORDERED: CEFTRIAXONE SOD 1 GM/NS 50 ML 50 ML IV SCH (20:45)
[2018-03-20] MEDS ORDERED: OXYCODONE-ACET1 EAC1 PO (21:04)
--- OUTSIDE RECORDS SUMMARY | 2018-03-20 21:07 | XMS REPORT | Clinical Summary ---
Author Author DEVIN [facility] Address Unknown Phone Unavailable Care Team Providers Care Food Sales Clerk Name Role Phone Bam Mccarthy PCP Allergies [...] post kidney transplant 06/01/2013 Overview: ICD9 DX Oven Technician L ast Assessment & Plan: Graft [...] Type Area Manufactur er 09/06/2016 4301- / [id number] Adhesion Barrier,Seprafilm 5x6 - Cement/Wong N/A: Abdomen GENZYME [id number] ler/Adhesi SURGICAL Implanted: Qty: 2 on 07/06/2014 by [employer] Amrit Elam MD 02/06/2017 4301- [id number] Adhesion Barrier,Seprafilm 5x6 - Cement/Wong N/A: Abdomen GENZYME [id number] ler/Adhesi SURGICAL Implanted: Qty: 1 on 01/31/2015 by [employer] Amrit Trimble MD [id number] / / Stent,Uret Polaris 5fr X 10cm - Uro Stent BOSTON [id number] SCIENTIFIC Implanted: Qty: 1 on 05/24/2013 03/09/2016 [id number] / / [id number] Stent,Uret Polaris 5fr X 10cm - Uro Stent Right: Ureter BOSTON [id number] SCIENTIFIC Implanted: Qty: 1 on 01/21/2014 by Baljti Larson MD Results Not on fileafter 03/19/2017 Insurance Payer Benefit Subscriber ID Type Phone Address Plan / Group TEXANPLUS TEXANPLUS xxxxxxxxx [facility] Cont[facility] Advance Directives For more information, please contact: [facility] [address] [place] [phone] Date Inactivated Comments Code Status Date [...]
[2018-03-20] MEDS ORDERED: CALCITRIOL 0.25 MCG CAP PO SCH (21:15)
[2018-03-20] MEDS ORDERED: WARFARIN SOD 1 MG TAB PO SCH ×2 (21:15→22:00)
[2018-03-20] MEDS: OXYCODONE/ACETAMINOPHEN 5-325 1 EACH TABLET PO PRN (21:43)
[2018-03-20] MEDS: INSULIN REGULAR, HUMAN 100 UNIT/1 ML 3ML VIAL SQ SCH (21:51)
[2018-03-20] MEDS: CALCITRIOL 0.25 MCG CAP PO SCH (21:54)
[2018-03-20] MEDS ORDERED: WARFARIN SOD 2 MG TAB ONE (21:59)
[2018-03-20] MEDS: POTASSIUM CHLORIDE 20 MEQ TAB CR PO SCH (22:04)
[2018-03-21] MEDS ORDERED: BENADRYL25 M1 PO (00:12)
[2018-03-21] MEDS: DIPHENHYDRAMINE HCL 25 MG CAP PO PRN (02:30)
[2018-03-21 03:33] LABS: CREATINE KINASE MB 1.4 ng/mL (0-5.0)
[2018-03-21] MEDS: OXYCODONE HCL IR 5 MG TAB PO PRN ×3 (04:36→21:20)
[2018-03-21] MEDS: OXYCODONE/ACETAMINOPHEN 5-325 1 EACH TABLET PO PRN ×2 (04:36→21:20)
--- NOTE | 2018-03-21 07:00 | NUR ---
RECEIVED REPORT FROM OFF GOING NURSE. PATIENT IN ROOM IN HOSPITAL BED. CORTES TO GRAVITY. COLONOSTOMY INTACT. 18G PIV TO RIGHT AC PATENT. CONNECTED TO BEDSIDE MONITOR. PENDING ROOM ASSIGNMENT, BED DOWN CALL LIGHT IN REACH. WILL CONTINUE TO MONITOR.
[2018-03-21] MEDS: INSULIN REGULAR, HUMAN 100 UNIT/1 ML 3ML VIAL SQ SCH ×4 (07:23→21:06)
[2018-03-21] MEDS: ALLOPURINOL 300 MG TAB PO SCH (08:16)
[2018-03-21] MEDS: HYDRALAZINE HCL 25 MG TAB PO SCH ×3 (08:16→21:05)
[2018-03-21] MEDS: FUROSEMIDE INJ 10 MG/ML 4 ML VIAL IV SCH ×2 (08:16→21:05)
[2018-03-21] MEDS: POTASSIUM CHLORIDE 20 MEQ TAB CR PO SCH (08:16)
[2018-03-21] MEDS: TACROLIMUS 1 MG CAP PO SCH ×2 (08:16→17:20)
[2018-03-21] MEDS: FERROUS SULFATE 325 MG TAB PO SCH (08:16)
[2018-03-21] MEDS: PREDNISONE 5 MG TAB PO SCH (08:16)
[2018-03-21] MEDS ORDERED: FUROSEMIDE 40 MG TAB PO SCH (09:00)
[2018-03-21] MEDS ORDERED: AMOXICILLIN/CLAVULANATE K 500 MG TAB PO SCH (09:00)
[2018-03-21] MEDS ORDERED: AZTREONAM (AZACTAM) 0.5 GM in WATER STERILE 10ML VIAL 10 ML IV SCH (09:30)
--- NOTE | 2018-03-21 10:39 | NUR ---
Met with Dr. Herbert to discuss dc plan. He stated he spoke to pt this morning and that pt will go to [facility], [facility]. Dr. Herbert has contacted Dominique Marcial with [employer] to expedite auth, since it was recently given. Anticipated dc to SNF is Friday.
[2018-03-21 12:05] LABS: CREATINE KINASE MB 1.8 ng/mL (0-5.0)
--- NOTE | 2018-03-21 12:18 | Consultation ---
DATE OF CONSULTATION: March 21, 2018 HPI: This is a 63-year-old male with history of kidney transplant; recurrent fluid overload; type 2 diabetes with diabetic foot ulcer, stage IV, recently discharged. He was unable to do therapy, found to be more short of breath. He was discharged on Lasix 20 mg twice a day. He is maintained on prednisone 5 mg a day and tacrolimus 1 mg q.12 hours. Denied any trouble breathing. PAST MEDICAL HISTORY: CKD stage 3 to 4, fluid overload, history of renal transplant, colostomy placement, type 2 diabetes, end organ damage, diabetic foot ulcer. FAMILY HISTORY: Hypertension. Medication: pls see list REVIEW OF SYSTEMS CONSTITUTIONAL: No fever, chills. Feels weak. GI: Denies nausea, vomiting. Has ostomy. SKIN: Ulcer on the right foot. MUSCULOSKELETAL: Pain and arthralgias. RESPIRATORY: Dyspnea plus, orthopnea plus. Rest of review is negative. PHYSICAL EXAMINATION GENERAL: Lying in bed, actually in no distress. VITAL SIGNS: Temperature 98.5, pulse ox is 97, blood pressure 135/63. He favors sitting up. HEENT: Grossly atraumatic. NECK: JVD at 6 to 7 cm. CHEST: Faint crackles at the bases. CARDIAC: Normal heart tones. Rhythm sounds regular. ABDOMEN: Benign. Ostomy in place. EXTREMITIES: No definite edema. Right foot in bandage. LABS: Hemoglobin 9.7, white count 6.74, platelets at 246. K is 4.0, serum CO2 is 28, creatinine 2.23, BUN 36, albumin 3.3. ASSESSMENT 1. Chronic kidney disease, stage 3 to 4. 2. Renal transplant, currently stable. 3. 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 Satisfactory electrolytes and acid-base balance at this time. PLAN: Continue home immunosuppression, a.m. labs. I will try to see if we can order Prograf levels here. continue the diuretics that have been started Job#: [id number] DAREN MTDKaren
[2018-03-21] MEDS: AMPICILLIN TRIHYDRATE 500MG CAPSULE PO SCH ×2 (14:00→21:05)
[2018-03-21 14:17] VITALS: BP 169/74
--- NOTE | 2018-03-21 15:46 | Consultation ---
DATE OF CONSULTATION: March 21, 2018 TIME: 02:42 p.m. REASON FOR CONSULTATION: Right lower extremity ulceration. CHIEF COMPLAINT/HISTORY OF PRESENT ILLNESS: This is a pleasant gentleman, who is admitted in regards to CHF exacerbation by Dr. Raul Herbert. We are asked to see this patient in regards to his right lower extremity. The patient is currently being seen by Dr. Barrera in the outpatient setting for a chronic ulceration of the plantar right foot. The patient at this point in time in regards to his foot, denies any nausea, vomiting, fever, chills, any thigh pain, chest pain, calf pain, shortness of breath. PAST MEDICAL HISTORY: Transient ischemic attack, palpitations, chest pain, cystitis, chronic urinary tract infection, chronic renal insufficiency, diabetes mellitus with peripheral neuropathy, peripheral vascular disease, atrial fibrillation, congestive heart failure. PREVIOUS SURGICAL HISTORY: Multiple debridements in the right lower extremity, previous renal transplant. FAMILY MEDICAL HISTORY: Significant for diabetes mellitus, hypertension, and previous stroke. MEDICATIONS: Extensively see MAR. ALLERGIES: THE PATIENT DENIES ANY KNOWN DRUG ALLERGIES. REVIEW OF SYSTEMS: See admission history and physical. PHYSICAL EXAMINATION GENERAL: The patient is alert, awake, and oriented x3. Currently not in acute distress. RIGHT LOWER EXTREMITY: Patient has nonpalpable dorsalis pedis and posterior pulses to the right lower extremity. Capillary refill time is within 5 seconds of the right foot. DERMATOLOGIC: Reveals a full thickness ulceration, 2 separate ulcers one deep down to the subcutaneous tissue. It does not probe the bone. There is fibroglandular base which is approximately 60 to 70% fibrotic. Laterally on the plantar lateral foot reveals an ulceration with a red moist glandular base. No surrounding erythema is noted. Proximal erythema is streaking. Skin temperature is warm to cool from proximal to distal. NEUROLOGICAL: Patient has absence of sharp/dull light touch sensation as well as [place]-Jose testing to the bilateral lower extremities to the level of ankle joints. LABORATORY DATA: WBC is 6.4, RBC is 3.34, hemoglobin 9.7, hematocrit is 30.9, platelet count is 246,000. Blood cultures are pending. VITAL SIGNS: Temperature is 98.5, pulse is 78, respiratory rate is 15, blood pressure is 144/72, pulse oximetry is 100%. ASSESSMENT 1. Chronic ulceration, right lower extremity. 2. Diabetes mellitus with peripheral neuropathy. 3. Congestive heart failure exacerbation. RECOMMENDATIONS 1. At this point in time, we will start with Santyl wet-to-dry on a twice daily basis to the ulcerations of right lower extremity. The deep part of the ulceration was packed with a quarter-inch iodoform packing on a daily basis, following thorough irrigation with normal sterile saline. Offloading is recommended. 2. Continue IV antibiotics/aztreonam as currently prescribed. Further recommendations will be pending patient's clinical progression as well as per Dr. Dean Barrera. Dr. Herbert, thank you for this consultation. We will have to follow this patient with you. Job#: [id number] ARMAND
[2018-03-21 16:07] VITALS: BP 162/69
[2018-03-21 16:38] VITALS: BP 169/74
[2018-03-21] MEDS: WARFARIN SOD 1 MG TAB PO SCH (17:21)
[2018-03-21 18:07] VITALS: BP 169/74
[2018-03-21 20:00] VITALS: BP 154/67
[2018-03-21] MEDS ORDERED: DIPHENHYDRAMINE HCL 25 MG CAP PO SCH (21:00)
[2018-03-21] MEDS: INSULIN DETEMIR 100 UNIT/ML PEN SQ SCH (21:06)
[2018-03-21] MEDS ORDERED: SODIUM CHLORIDE 0.9% 250ML 250 ML ONE (21:09)
[2018-03-21] MEDS: AZTREONAM (AZACTAM) 0.5 GM in SODIUM CHLORIDE 0.9% 50ML 50 ML IV SCH (21:26)
[2018-03-21] MEDS: COLLAGENASE OINTMENT 30 GM TUBE TP SCH (22:23)
[2018-03-22] VITALS (8 sets, daily range): BP systolic 94–168; BP diastolic 50–85
[2018-03-22] MEDS: DIPHENHYDRAMINE HCL 25 MG CAP PO PRN ×2 (02:10→21:55)
[2018-03-22 04:32] LABS: BASOPHILS % 0.6 % (0.0-1.0); EOSINOPHILS # (AUTO) 0.3 (0.0-0.4); EOSINOPHILS % 3.6 % (0.0-6.0); HEMATOCRIT 29.9 % (38.2-49.6); HEMOGLOBIN 9.3 g/dL (14.0-18.0); LYMPHOCYTES # (AUTO) 1.9 (1.0-3.2); LYMPHOCYTES % 27.5 % (18.0-39.1); MEAN CORPUSCULAR HGB CONC 31.1 g/dL (31-35); MEAN CORPUSCULAR VOLUME 93.1 fL (81-99); MONOCYTES # (AUTO) 0.8 (0.2-0.8); MONOCYTES % 11.3 % (4.4-11.3); NEUTROPHILS # (AUTO) 3.9 (2.1-6.9); NEUTROPHILS % 55.9 % (38.7-80.0); PLATELET COUNT 257 x10e3/uL (140-360); RED BLOOD COUNT 3.21 x10e6/uL (4.3-5.7); RED CELL DISTRIBUTION WIDTH 19.9 % (11.7-14.4)
[2018-03-22 04:50] LABS: INR 1.19; PROTHROMBIN TIME 16.1 seconds (11.9-14.5)
[2018-03-22 04:57] LABS: ANION GAP 18.2 mmol/L (8-16); CALCIUM 9.1 mg/dL (8.4-10.2); CREATININE, SERUM 2.42 mg/dL (0.72-1.25); POTASSIUM 4.2 mmol/L (3.5-5.1)
[2018-03-22] MEDS: AMPICILLIN TRIHYDRATE 500MG CAPSULE PO SCH ×3 (05:42→21:55)
[2018-03-22] MEDS: OXYCODONE/ACETAMINOPHEN 5-325 1 EACH TABLET PO PRN ×2 (06:00→18:44)
[2018-03-22] MEDS: OXYCODONE HCL IR 5 MG TAB PO PRN ×3 (06:00→18:44)
--- NOTE | 2018-03-22 07:09 | NUR ---
received pt lying in bed with eyes closed, Resp even and unlabored. call light within reach. at bedside in sofa with eyes closed.
[2018-03-22] MEDS: INSULIN REGULAR, HUMAN 100 UNIT/1 ML 3ML VIAL SQ SCH ×4 (07:30→22:29)
[2018-03-22] MEDS: FUROSEMIDE INJ 10 MG/ML 4 ML VIAL IV SCH ×2 (09:18→21:55)
[2018-03-22] MEDS: AZTREONAM (AZACTAM) 0.5 GM in SODIUM CHLORIDE 0.9% 50ML 50 ML IV SCH ×2 (09:18→21:55)
[2018-03-22] MEDS: TACROLIMUS 1 MG CAP PO SCH ×2 (09:19→17:06)
[2018-03-22] MEDS: ALLOPURINOL 300 MG TAB PO SCH (09:19)
[2018-03-22] MEDS: HYDRALAZINE HCL 25 MG TAB PO SCH ×3 (09:19→21:55)
[2018-03-22] MEDS: COLLAGENASE OINTMENT 30 GM TUBE TP SCH (09:19)
[2018-03-22] MEDS: FERROUS SULFATE 325 MG TAB PO SCH (09:19)
[2018-03-22] MEDS: PREDNISONE 5 MG TAB PO SCH (09:19)
[2018-03-22] MEDS: POTASSIUM CHLORIDE 20 MEQ TAB CR PO SCH (09:20)
--- NOTE | 2018-03-22 09:30 | NUR ---
pt c/o back pain and itching. no redness/rash/hives noted. per , may give oxicodone 5mg with Claritin 10mg now.
--- NOTE | 2018-03-22 09:31 | NUR ---
explained to patient pain meds may be cause of itching and also explained does not want to cause lethargy in patient by prescribing benadryl. pt agreed.
[2018-03-22] MEDS: LORATADINE 10 MG TAB PO SCH (09:49)
[2018-03-22] MEDS: WARFARIN SOD 1 MG TAB PO SCH (17:07)
--- NOTE | 2018-03-22 19:10 | NUR ---
Received patient awake on bed, at the bedside. Sands catheter in place draining yellow urine output. Call light within easy reached, advised to call for assistance when needed. Bed in low position and locked. Will continue to monitor
--- NOTE | 2018-03-22 19:45 | NUR ---
Patient refused the bed alarm on, instructed re fall and safety precaution, will continue to monitor
[2018-03-22] MEDS: INSULIN DETEMIR 100 UNIT/ML PEN SQ SCH (21:55)
[2018-03-23] VITALS (9 sets, daily range): BP systolic 102–176; BP diastolic 51–87
[2018-03-23] MEDS: OXYCODONE/ACETAMINOPHEN 5-325 1 EACH TABLET PO PRN ×2 (05:59→20:33)
[2018-03-23] MEDS: AMPICILLIN TRIHYDRATE 500MG CAPSULE PO SCH ×3 (05:59→23:05)
--- NOTE | 2018-03-23 07:05 | NUR ---
received pt lying in bed with eyes closed, Resp even and unlabored. call light within reach. at bedside.
[2018-03-23] MEDS: INSULIN REGULAR, HUMAN 100 UNIT/1 ML 3ML VIAL SQ SCH ×4 (07:30→21:00)
[2018-03-23 07:51] LABS: BASOPHILS # (AUTO) 0.1 (0.0-0.1); BASOPHILS % 0.7 % (0.0-1.0); EOSINOPHILS # (AUTO) 0.2 (0.0-0.4); HEMATOCRIT 28.6 % (38.2-49.6); LYMPHOCYTES % 30.4 % (18.0-39.1); MEAN CORPUSCULAR HEMOGLOBIN 29.7 pg (28-32); MEAN CORPUSCULAR HGB CONC 31.5 g/dL (31-35); MEAN CORPUSCULAR VOLUME 94.4 fL (81-99); MONOCYTES # (AUTO) 0.7 (0.2-0.8); NEUTROPHILS # (AUTO) 3.7 (2.1-6.9); NEUTROPHILS % 54.6 % (38.7-80.0); PLATELET COUNT 232 x10e3/uL (140-360); RED BLOOD COUNT 3.03 x10e6/uL (4.3-5.7)
[2018-03-23 08:20] LABS: INR 1.29; PROTHROMBIN TIME 17.2 seconds (11.9-14.5)
[2018-03-23] MEDS ORDERED: MAGNESIUM OXID400 MG PO (08:25)
[2018-03-23 08:27] LABS: ANION GAP 15.6 mmol/L (8-16); CALCIUM 8.7 mg/dL (8.4-10.2); POTASSIUM 4.6 mmol/L (3.5-5.1)
[2018-03-23] MEDS: FUROSEMIDE INJ 10 MG/ML 4 ML VIAL IV SCH ×2 (08:41→21:44)
[2018-03-23] MEDS: AZTREONAM (AZACTAM) 0.5 GM in SODIUM CHLORIDE 0.9% 50ML 50 ML IV SCH ×2 (08:41→21:44)
[2018-03-23] MEDS: COLLAGENASE OINTMENT 30 GM TUBE TP SCH (08:42)
[2018-03-23] MEDS: TACROLIMUS 1 MG CAP PO SCH ×2 (08:42→17:16)
[2018-03-23] MEDS: PREDNISONE 5 MG TAB PO SCH (08:42)
[2018-03-23] MEDS: CALCITRIOL 0.25 MCG CAP PO SCH (08:42)
[2018-03-23] MEDS: ALLOPURINOL 300 MG TAB PO SCH (08:42)
[2018-03-23] MEDS: POTASSIUM CHLORIDE 20 MEQ TAB CR PO SCH (08:42)
[2018-03-23] MEDS: FERROUS SULFATE 325 MG TAB PO SCH (08:42)
[2018-03-23] MEDS: LORATADINE 10 MG TAB PO SCH (08:42)
[2018-03-23] MEDS: HYDRALAZINE HCL 25 MG TAB PO SCH ×3 (08:42→21:45)
[2018-03-23 08:50] LABS: CREATININE, SERUM 2.65 mg/dL (0.72-1.25)
--- NOTE | 2018-03-23 09:56 | Progress Note ---
DATE: 03.23.18 SUBJECTIVE: He is breathing better. Diuresed well yesterday. Urine output close to 1 to 1-1/2 liters a day. He was laid flat. EXAMINATION GENERAL: Lying in bed, in no distress. VITAL SIGNS: Temperature 97.4, pulse 88, blood pressure 126/58. CHEST: Clear. Now unable to hear any crackles. EXTREMITIES: Right leg in bandage. ABDOMEN: Benign. Graft not tender. : Sands in place. CARDIAC: Normal heart tones, sound regular at this time. Hemoglobin is 9.7, white count 6.74, platelets are 246. K is 4.6, creatinine 2.65, BUN 46. ASSESSMENTS 1. Chronic kidney disease, stage 4, status post donor renal transplant. 2. Likely fluid overload, underlying diabetic and hypertensive end-organ damage. PLAN: Continue IV diuresis one more day and then cut back to p.o. Continue his immunosuppression. Low-salt intake. Keep fluid restricted, a.m. labs. Will follow along. Job#: [id number] TIMI PAYNE
--- NOTE | 2018-03-23 10:49 | Progress Note ---
DATE: March 23, 2018 PODIATRY CONSULTATION SUBJECTIVE: Patient at bedside accompanied by spouse. Doing better. Decreased shortness of breath. Denies any history of fever, chills, nausea, or vomiting. OBJECTIVE VITAL SIGNS: Afebrile. Pulse rate 88, respiration 18, blood pressure 126/58. O2 saturation 96%. He has a white blood cell count of 6.72, hemoglobin 9.0, hematocrit 28.6 with a platelet count of 232. Has a blood glucose of 197. INR of 1.29. Ulceration to the right lower extremity more than 3 to 4 cm in diameter. Some tracking down to plantar fascial level close to bone. ASSESSMENT: Charcot foot with a grade 3 ulcer right foot with diabetic neuropathy and cellulitis. PLAN: Continue IV antibiotics. Continue local wound care with Santyl followed by dilute wet-to-dry. Continue offloading. Patient may start physical therapy once the spouse brings the orthotic walking boot. Job#: [id number] EV
--- NOTE | 2018-03-23 12:39 | NUR ---
CASE MANAGEMENT INITIAL ASSESSMENT Senior Business Process Analyst to bedside to discuss plan of care with patient/family. CM/SW role and care transitions discussed. Anticipated discharge plan discussed along with duration of care. CM discussed patients right to make decisions in care. CM/SW work hours given. Patient lives: PATIENT LIVES IN [address] STORY HOME WITH IN [place], [place] Admit/Transfer: ED POA/Emergency contact: - LEE DRAKE- [phone] Current/Previous Home Health: NONE PCP/Follow-up Care: DR. JELANI HESS Current/Previous DME: DAISHA VERDUZCO Other Services: NONE AT THIS TIME Employment Status: EMPLOYED Areas of Concerns: MOBILITY Referral Needs: POSSIBLE USP PLACEMENT Education Needs: NONE AT THIS TIME IMM/WHITAKER given and signed (if applicable): IMM Goal for discharge: PATIENT TO DISCHARGE TO USP FACILITY CM left business card at the bedside with contact information. Name and number was also written on the patients whiteboard. Patient verbalized understanding of discussion. CM will follow-up with ongoing discharge and transition of care needs.
--- NOTE | 2018-03-23 13:37 | NUR ---
WOUND CARE CONSULTATION : INITIAL EVALUATION Patient admitted with SOB and Cough through ER from Home. HX: TIA, Chronic UTI, DM, Neuropathy, AFib, CHF, DM. LABS: WBC6.72 HCT28.6 NEUT54.6 FME076 ALB1.2 - 02/23/18 -Right Foot Wound CX - Pseudomonas & VRE+ ( patient states to be on ABX since last admission). - Wound Care Consulted for RLE Wound - Noted Dean Kendall currently on case for wound care and standing orders present for WC - Currently on IV ABX. - ADA Diet - Upon bedside assessment noted the followin. Patient complains of pain and itching to low back pointing to sacrum - area warm, dry and intact, no redness, no swelling, no rash and no wounds identified. 2. Right Foot Plantar - DFU Grade 3 - (3.7 x 4 x 4.3cm) with tunneling to 6 o'clock 4.3 cm RECOMMENDATION: 1. Right Foot Plantar - Continue current treatment plan implemented by Dean Kendall. DC PLANNING: Patient states will probably discharge tomorrow to SNF for Cont ABX and WC. Addendum: 03/23/18 at 1355 by Jarred Conner RN Amended: Links added.
--- NOTE | 2018-03-23 14:26 | NUR ---
Nutrition Screen Note RD Recommendation for Physician: -Continue ADA diet as ordered -RD offered diet education on 03/23 but pt was not interested. Plan of Care: RD following, monitoring for tolerance and adequacy Nutrition reason for involvement: Nutrition Risk Trigger MST Primary Diagnose(s): Charcot foot with a grade 3 ulcer right foot with diabetic neuropathy and cellulitis. PMH: Diabetes mellitus with diabetic peripheral neuropathy, peripheral arterial disease, stage-3 kidney failure, s/p kidney transplant. Ht: 67in Wt: 195.25lb BMI: 30.6kg/m2 IBW: 148lb RD Assessment: (03/23/18) Chart reviewed. Labs and meds reviewed. 63yo M, who is admitted for CHF exacerbation. Currently on IV lasix and fluids restriction. HbA1C- 8.1% (02/23). Pt was well known to me from his previous admission on 03/08/2018-03/15/2018. Visited pt in the room. Pt reports good appetite with 100% observed lunch intake. No GI complains noted. LBM 03/23. Pt denies any chewing or swallowing difficulty. No recent weight loss reported. Will continue to monitor and follow. Current Diet: ADA diet Malnutrition Evaluation (03/23/2018) The patient does not meet criteria for a specified degree of malnutrition at this time. Will re-evaluate at follow-up as appropriate. Diet Education Needs Assessment: Diet education indicated, pt is not interested. Nutrition Care Level: low Signed: Suyapa Rose, , RD, LD
--- NOTE | 2018-03-23 14:26 | NUR ---
SPOKE WITH PT, HE STATES HE WOULD STILL LIKE TO TRY [facility] FAXED CLINICALS TO [phone], SPOKE WITH BARTOLOME VERIFIED RECEIPT OF CLINICALS. STATES INSURANCE WILL NOT EVEN VIEW CLINICALS UNTIL 2 DAYS OF PT NOTES ACCOMPANY CLINICALS. WILL SEND GET THEM.
--- NOTE | 2018-03-23 14:38 | NUR ---
SPOKE WITH BRIGID WHOM STATES DOING EVAL TODAY AND WILL ALSO SEE TOMORROW TO ASSIST WITH THE DOCUMENTATION
[2018-03-23] MEDS: WARFARIN SOD 1 MG TAB PO SCH (17:16)
--- NOTE | 2018-03-23 19:15 | NUR ---
Completed bedside rounds with morning nurse. Pt alert to name, lying in bed 45 degrees. Family at bedside. No distress noted.
[2018-03-23] MEDS: OXYCODONE HCL IR 5 MG TAB PO PRN (20:33)
[2018-03-23] MEDS: INSULIN DETEMIR 100 UNIT/ML PEN SQ SCH (21:00)
[2018-03-24] VITALS (7 sets, daily range): BP systolic 112–156; BP diastolic 55–100
[2018-03-24] MEDS: DIPHENHYDRAMINE HCL 25 MG CAP PO PRN (01:44)
[2018-03-24 05:09] LABS: ANION GAP 17.2 mmol/L (8-16); CALCIUM 8.8 mg/dL (8.4-10.2); CREATININE, SERUM 2.63 mg/dL (0.72-1.25); POTASSIUM 4.2 mmol/L (3.5-5.1)
[2018-03-24] MEDS: CALCITRIOL 0.25 MCG CAP PO SCH (05:55)
[2018-03-24] MEDS: OXYCODONE/ACETAMINOPHEN 5-325 1 EACH TABLET PO PRN (05:55)
[2018-03-24] MEDS: AMPICILLIN TRIHYDRATE 500MG CAPSULE PO SCH ×3 (06:44→21:57)
--- NOTE | 2018-03-24 07:08 | NUR ---
PT ALERT RESP EVEN AND UNLABORED, NO DISTRESS NOTED, PT ABLE TO MAKE NEEDS KNOWN, NO C/O PAIN WHEN ASKED, COLOSTOMY INTACT CALL LIGHT IN REACH. WILL CONT TO MONITOR.
[2018-03-24] MEDS: AZTREONAM (AZACTAM) 0.5 GM in SODIUM CHLORIDE 0.9% 50ML 50 ML IV SCH ×2 (08:43→21:56)
[2018-03-24] MEDS: POTASSIUM CHLORIDE 20 MEQ TAB CR PO SCH (08:43)
[2018-03-24] MEDS: PREDNISONE 5 MG TAB PO SCH (08:43)
[2018-03-24] MEDS: HYDRALAZINE HCL 25 MG TAB PO SCH ×3 (08:43→21:57)
[2018-03-24] MEDS: COLLAGENASE OINTMENT 30 GM TUBE TP SCH (08:43)
[2018-03-24] MEDS: LORATADINE 10 MG TAB PO SCH (08:43)
[2018-03-24] MEDS: TACROLIMUS 1 MG CAP PO SCH ×2 (08:43→18:16)
[2018-03-24] MEDS: ALLOPURINOL 300 MG TAB PO SCH (08:43)
[2018-03-24] MEDS: FUROSEMIDE INJ 10 MG/ML 4 ML VIAL IV SCH ×2 (08:43→21:56)
[2018-03-24] MEDS: INSULIN REGULAR, HUMAN 100 UNIT/1 ML 3ML VIAL SQ SCH ×4 (08:44→21:45)
[2018-03-24] MEDS: FERROUS SULFATE 325 MG TAB PO SCH (08:45)
--- NOTE | 2018-03-24 09:11 | Progress Note ---
DATE: March 24, 2018 SUBJECTIVE: Patient seen at bedside, doing somewhat better, did not get any much sleep. Relates the Benadryl seems to be getting the itching away. OBJECTIVE: VITAL SIGNS: Afebrile, pulse rate 73, respiration 18, blood pressure 122/59, O2 saturation 97%. EXTREMITIES: Ulceration, right foot healing slowly. Charcot foot with a grade 3 ulcer down to plantar fascia close to bone measuring more than 3 to 4 cm in diameter. LABS: White blood cell count 6.72, hemoglobin 9.0, hematocrit 28.6 with a platelet count of 232,000 with a blood glucose of 144. ASSESSMENT: Grade 3 ulcer with Charcot foot, diabetic neuropathy. PLAN: Will continue Santyl, followed by dilute wet-to-dry Betadine. Patient could do physical therapy with the orthotic walking boot. Will continue to follow. Job#: [id number]
--- NOTE | 2018-03-24 13:07 | Progress Note ---
DATE: March 24, 2018 SUBJECTIVE: Still having some dyspnea but improved, making urine. I's and O's were 1.9 and 1.8 out. OBJECTIVE GENERAL: On examination, sitting up in no distress. VITAL SIGNS: Temperature 97.5, blood pressure 112/55, pulse rate 90. CHEST: The same, crackles at the bases. EXTREMITIES: No definite edema. Right foot in bandage. ABDOMEN: Benign. Graft not tender. LABS: Hemoglobin 9.7, sodium 135, K 4.2, creatinine 2.6, BUN 49. ASSESSMENT 1. Chronic kidney disease, stage 4, status post donor renal transplant. 2. Fluid overload. 3. Reasonable blood pressure. PLAN: Continue IV Lasix. It seems to be currently helping. I did explain to him that he needs to fluid restrict. Otherwise, he will need progressively more diuretics and we will fail to keep the fluid overload from recurring. He appears to understand. Ongoing antibiotic treatment for UTI. We will follow along. Job#: [id number]
--- NOTE | 2018-03-24 14:49 | NUR ---
FAXED PT NOTES TO [facility], FILLED OUT PASRR FILED COPY IN CHART, PUT POST DISCHARGE STATUS FORM IN CHART AND HAD PT SIGN IMM WITH COPY TO BE FILED IN CHART. RTF COMPLETED AND PUT AT NURSES STATION FOR COMPLETION OF TRANSFER ONCE ROOM NUMBER GIVEN AND MD ISSUES DISCHARGE.
--- NOTE | 2018-03-24 14:51 | NUR ---
PT WILL GO TO [address] [address] PHONE [phone].
[2018-03-24] MEDS: WARFARIN SOD 1 MG TAB PO SCH (18:16)
--- NOTE | 2018-03-24 19:15 | NUR ---
Completed bedside rounds with morning nurse. Pt alert to name, lying in bed 45 degrees. Denies pain at this time. No distress noted.
--- NOTE | 2018-03-24 19:32 | NUR ---
REPORT GIVEN TO ONCOMING NURSE, FOR CONTINUED CARE.
[2018-03-24] MEDS: INSULIN DETEMIR 100 UNIT/ML PEN SQ SCH (21:45)
[2018-03-25] VITALS (7 sets, daily range): BP systolic 101–144; BP diastolic 50–76
[2018-03-25 05:10] LABS: ANION GAP 15.1 mmol/L (8-16); CALCIUM 8.5 mg/dL (8.4-10.2); CREATININE, SERUM 2.22 mg/dL (0.72-1.25); POTASSIUM 4.1 mmol/L (3.5-5.1)
[2018-03-25] MEDS: AMPICILLIN TRIHYDRATE 500MG CAPSULE PO SCH ×3 (05:36→22:03)
[2018-03-25] MEDS: OXYCODONE HCL IR 5 MG TAB PO PRN ×2 (05:40→13:34)
[2018-03-25] MEDS: OXYCODONE/ACETAMINOPHEN 5-325 1 EACH TABLET PO PRN ×2 (05:40→13:34)
[2018-03-25] MEDS: INSULIN REGULAR, HUMAN 100 UNIT/1 ML 3ML VIAL SQ SCH ×4 (07:30→21:00)
[2018-03-25] MEDS: HYDRALAZINE HCL 25 MG TAB PO SCH ×3 (09:00→21:00)
[2018-03-25] MEDS: TACROLIMUS 1 MG CAP PO SCH ×2 (09:50→17:00)
[2018-03-25] MEDS: POTASSIUM CHLORIDE 20 MEQ TAB CR PO SCH (09:50)
[2018-03-25] MEDS: CALCITRIOL 0.25 MCG CAP PO SCH (09:50)
[2018-03-25] MEDS: ALLOPURINOL 300 MG TAB PO SCH (09:50)
[2018-03-25] MEDS: FERROUS SULFATE 325 MG TAB PO SCH (09:50)
[2018-03-25] MEDS: PREDNISONE 5 MG TAB PO SCH (09:50)
[2018-03-25] MEDS: LORATADINE 10 MG TAB PO SCH (09:50)
[2018-03-25] MEDS: FUROSEMIDE INJ 10 MG/ML 4 ML VIAL IV SCH ×2 (09:50→21:00)
[2018-03-25] MEDS: AZTREONAM (AZACTAM) 0.5 GM in SODIUM CHLORIDE 0.9% 50ML 50 ML IV SCH ×2 (09:50→21:00)
--- NOTE | 2018-03-25 10:02 | Progress Note ---
DATE: March 25, 2018 SUBJECTIVE: Patient at bedside accompanied by spouse. Doing well. Denies any history of fever, chills, nausea, or vomiting. OBJECTIVE VITALS: Afebrile, pulse rate 123, blood pressure 101/59, O2 saturation 99%, respiration rate is 20. EXTREMITIES: Ulceration to the right lower extremity stable for now. Has a Charcot foot type of deformity. Ulcer is approximately 1-4 cm in diameter down to plantar fascial level. White blood cell count 6.72, hemoglobin 9 with a glucose of 135. INR of 1.29. ASSESSMENT: Grade 3 ulcer with cellulitis, Charcot foot. PLAN: Will continue local wound care. Continue antibiotics. Patient able to walk strictly with the aid of the walking boot. Will continue to follow. Job#: [id number] OR
--- NOTE | 2018-03-25 10:06 | Progress Note ---
DATE: March 25, 2018 Now thinking about going home with home health. Minimal weightbearing and boot has been suggested. PHYSICAL EXAMINATION VITALS: Temperature 97.7, pulse 103 and regular, blood pressure 101/59. GENERAL: No distress. CHEST: Minimally diminished breath sounds at the bases. EXTREMITIES: No definite edema. Right foot in bandage. NEURO: Alert and appropriate. Potassium is 4.1, creatinine 2.22, BUN 53. ASSESSMENT 1. Fluid overload, improved. 2. Chronic kidney disease, stage 4, likely transplanted kidney. 3. History of diabetic end-organ damage. 4. Chronic immunosuppression. PLAN: One dose of Epogen. A.m. labs. Keep diuresing for now. Appears to be tolerating it. Continue home immunosuppression dose, which consists of prednisone and Prograf. Job#: [id number] SYDNI
[2018-03-25] MEDS: COLLAGENASE OINTMENT 30 GM TUBE TP SCH (14:55)
[2018-03-25] MEDS: WARFARIN SOD 1 MG TAB PO SCH (17:00)
[2018-03-25] MEDS: INSULIN DETEMIR 100 UNIT/ML PEN SQ SCH (21:00)
--- NOTE | 2018-03-25 22:47 | NUR ---
Patient has voided post berger removal.
[2018-03-26] VITALS (7 sets, daily range): BP systolic 92–157; BP diastolic 46–65
[2018-03-26] MEDS: AMPICILLIN TRIHYDRATE 500MG CAPSULE PO SCH ×3 (06:28→22:00)
--- NOTE | 2018-03-26 07:35 | Progress Note ---
DATE: March 26, 2018 SUBJECTIVE: Patient seen at bedside, sleeping, in no distress. OBJECTIVE: VITAL SIGNS: Afebrile, pulse rate 59, respiration 19, blood pressure 120/57, O2 saturation 96%. EXTREMITIES: Dressing dry and intact. CFT to all toes less than 3 seconds. ASSESSMENT: Grade 3 ulcer, right foot, Charcot foot with cellulitis. PLAN: Will continue local wound care with Santyl, followed by diluted wet-to-dry Betadine. Continue physical therapy with orthotic walking boot. Continue ampicillin 500 mg q.8h. Job#: [id number]
[2018-03-26 07:54] LABS: INR 1.31; PROTHROMBIN TIME 17.4 seconds (11.9-14.5)
[2018-03-26] MEDS: POTASSIUM CHLORIDE 20 MEQ TAB CR PO SCH (08:16)
[2018-03-26] MEDS: INSULIN REGULAR, HUMAN 100 UNIT/1 ML 3ML VIAL SQ SCH ×4 (08:16→21:00)
[2018-03-26] MEDS: TACROLIMUS 1 MG CAP PO SCH ×2 (08:16→17:17)
[2018-03-26] MEDS: FERROUS SULFATE 325 MG TAB PO SCH (08:16)
[2018-03-26] MEDS: LORATADINE 10 MG TAB PO SCH (08:16)
[2018-03-26] MEDS: FUROSEMIDE INJ 10 MG/ML 4 ML VIAL IV SCH (08:16)
[2018-03-26] MEDS: ALLOPURINOL 300 MG TAB PO SCH (08:16)
[2018-03-26] MEDS: HYDRALAZINE HCL 25 MG TAB PO SCH ×3 (08:16→21:26)
[2018-03-26] MEDS: PREDNISONE 5 MG TAB PO SCH (08:16)
[2018-03-26] MEDS ORDERED: EPOETIN ALFA 10000 UNIT/ML VIAL SC ONE (08:45)
--- NOTE | 2018-03-26 09:38 | Progress Note ---
DATE: March 26, 2018 SUBJECTIVE: Last creatinine 2.2. Says breathing is okay, however, he has not really exerted himself. Hemoglobin is 9. PHYSICAL EXAMINATION: GENERAL: Lying in bed, in no distress. VITAL SIGNS: Temperature 97.8, pulse 87, blood pressure 139/60. CHEST: Clear. NECK: No JVD. EXTREMITIES: No definite edema. Right foot is bandaged. NEURO: Alert, appropriate. ASSESSMENT: 1. Chronic kidney disease 4. 2. Fluid overload. 3. Status post renal transplant with chronic immunosuppression. 4. Diabetic end-organ damage. PLAN: Asked the staff to ambulate to make sure there is no breathing with dyspnea with exertion. Apparently, he had that before and that got worse very fast once he was off IV diuretics resulting in re-admission. If he does seem to be dyspneic at rest, would favor getting another x-ray. His lungs themselves are clear. Keep salt and water restricted. Continue current transplant medications. Will follow along. Job#: [id number]
[2018-03-26] MEDS: AZTREONAM (AZACTAM) 0.5 GM in SODIUM CHLORIDE 0.9% 50ML 50 ML IV SCH ×2 (10:40→21:25)
[2018-03-26] MEDS: OXYCODONE HCL IR 5 MG TAB PO PRN (10:50)
[2018-03-26] MEDS: OXYCODONE/ACETAMINOPHEN 5-325 1 EACH TABLET PO PRN (10:50)
[2018-03-26] MEDS: COLLAGENASE OINTMENT 30 GM TUBE TP SCH (14:37)
[2018-03-26] MEDS: WARFARIN SOD 1 MG TAB PO SCH (17:17)
[2018-03-26] MEDS: INSULIN DETEMIR 100 UNIT/ML PEN SQ SCH (21:00)
[2018-03-26] MEDS: FUROSEMIDE 40 MG TAB PO SCH (21:26)
[2018-03-27] VITALS: BP 184/74
[2018-03-27] MEDS: DIPHENHYDRAMINE HCL 25 MG CAP PO PRN (02:12)
[2018-03-27] MEDS: OXYCODONE/ACETAMINOPHEN 5-325 1 EACH TABLET PO PRN ×2 (02:12→13:46)
[2018-03-27] MEDS: OXYCODONE HCL IR 5 MG TAB PO PRN (02:13)
[2018-03-27 04:00] VITALS: BP 169/68
[2018-03-27 05:07] LABS: ANION GAP 13.4 mmol/L (8-16); CALCIUM 9.2 mg/dL (8.4-10.2); CREATININE, SERUM 2.26 mg/dL (0.72-1.25); MAGNESIUM 1.5 MG/DL (1.3-2.1); PHOSPHORUS 3.8 MG/DL (2.3-4.7); POTASSIUM 4.4 mmol/L (3.5-5.1)
[2018-03-27] MEDS: AMPICILLIN TRIHYDRATE 500MG CAPSULE PO SCH ×2 (05:48→12:22)
[2018-03-27 06:08] LABS: FERRITIN 426.29 ng/mL (21.81-274.66)
--- NOTE | 2018-03-27 07:05 | NUR ---
Received patient mid fowlers position, side rails upx2, call light within reach. AAOX4 to time, person, place, situation. Respirations even and unlabored. Instructed patient to use call light for assistance. Voiced understanding. Will continue to monitor.
[2018-03-27 08:06] VITALS: BP 140/82
[2018-03-27 08:20] VITALS: BP 140/82
--- NOTE | 2018-03-27 08:42 | Progress Note ---
DATE: March 27, 2018 SUBJECTIVE: Patient seen at bedside. In good spirits. Denies any history of fever, chills, nausea, or vomiting. OBJECTIVE VITALS: Afebrile, pulse rate 100, blood pressure 140/82, O2 saturation 99% with a respiration rate 18. EXTREMITIES: Ulceration to the right lower extremity less than 4 cm diameter. Granular fibrotic base noted tracking down to plantar fascial and possibly bone. Cellulitis noted to the right foot when compared to the left. Pedal pulses are palpable. White blood cell count 6.72, hemoglobin 9, hematocrit 28.6, and platelets 232,000 with an INR of 1.31. Blood glucose of 164. ASSESSMENT 1. Grade 3 ulcer, healing slowly. 2. Charcot foot with cellulitis. PLAN: Continue local wound care. Continue IV antibiotics. Continue physical therapy strictly with the walking boot. Will continue to follow. Job#: [id number] ME
[2018-03-27] MEDS: ALLOPURINOL 300 MG TAB PO SCH (09:00)
[2018-03-27] MEDS: INSULIN REGULAR, HUMAN 100 UNIT/1 ML 3ML VIAL SQ SCH ×3 (09:10→16:47)
[2018-03-27] MEDS: POTASSIUM CHLORIDE 20 MEQ TAB CR PO SCH (09:10)
[2018-03-27] MEDS: LORATADINE 10 MG TAB PO SCH (09:10)
[2018-03-27] MEDS: HYDRALAZINE HCL 25 MG TAB PO SCH ×2 (09:10→16:46)
[2018-03-27] MEDS: AZTREONAM (AZACTAM) 0.5 GM in SODIUM CHLORIDE 0.9% 50ML 50 ML IV SCH (09:10)
[2018-03-27] MEDS: FUROSEMIDE 40 MG TAB PO SCH (09:10)
[2018-03-27] MEDS: FERROUS SULFATE 325 MG TAB PO SCH (09:10)
[2018-03-27] MEDS: TACROLIMUS 1 MG CAP PO SCH ×2 (09:11→16:46)
[2018-03-27] MEDS: CALCITRIOL 0.25 MCG CAP PO SCH (09:11)
[2018-03-27] MEDS: PREDNISONE 5 MG TAB PO SCH (09:11)
[2018-03-27 11:37] VITALS: BP 131/54
[2018-03-27] MEDS: COLLAGENASE OINTMENT 30 GM TUBE TP SCH (13:41)
[2018-03-27] MEDS ORDERED: MAGNESIUM SULFATE 2GM/50ML 50 ML IV ONE (15:30)
--- NOTE | 2018-03-27 16:32 | NUR ---
Report called to concepcion braun and given to Aby LUIS of patient's status.
[2018-03-27 16:45] VITALS: BP 126/55
[2018-03-27] MEDS: WARFARIN SOD 1 MG TAB PO SCH (16:46)
--- NOTE | 2018-03-27 19:03 | NUR ---
taken via stretcher by [facility]. Transfer package given to EMS. AAOX4 to time, person,place, situation. Respirations even and unlabored. IV to right AC clean, dry, and intact. Dressing to right foot clean, dry, and intact.All personal belongings taken with patient
== END 2018-03-27 19:03 | DRG 291 ==
LOC: ER 16:22 → ERHOLD 20:36 → INTOOBSV 20:36 → ERHOLD 03-21 03:10 → MED/SURG2 03-21 14:02 → OBSVTOIN 03-26 16:12
PROVIDERS: ADMIT Internal Medicine; ATTEND Internal Medicine
DX: I13.0 Hypertensive heart and chronic kidney disease with heart failure and stage 1 through stage 4 chronic kidney disease, or unspecified chronic kidney disease (principal); I50.23 Acute on chronic systolic (congestive) heart failure; N18.4 Chronic kidney disease, stage 4 (severe); Z94.0 Kidney transplant status; L97.416 Non-pressure chronic ulcer of right heel and midfoot with bone involvement without evidence of necrosis; L03.115 Cellulitis of right lower limb; N30.00 Acute cystitis without hematuria; E11.22 Type 2 diabetes mellitus with diabetic chronic kidney disease; Z79.4 Long term (current) use of insulin; Z79.899 Other long term (current) drug therapy; I48.0 Paroxysmal atrial fibrillation; Z79.01 Long term (current) use of anticoagulants; Z91.19 Patient's noncompliance with other medical treatment and regimen; E11.610 Type 2 diabetes mellitus with diabetic neuropathic arthropathy; E11.621 Type 2 diabetes mellitus with foot ulcer; E11.69 Type 2 diabetes mellitus with other specified complication; E78.5 Hyperlipidemia, unspecified; Z86.718 Personal history of other venous thrombosis and embolism; Z86.711 Personal history of pulmonary embolism; H54.8 Legal blindness, as defined in USA; D64.9 Anemia, unspecified; I48.2 Chronic atrial fibrillation; Z93.3 Colostomy status; Z95.828 Presence of other vascular implants and grafts; Z83.3 Family history of diabetes mellitus; Z82.49 Family history of ischemic heart disease and other diseases of the circulatory system; E11.628 Type 2 diabetes mellitus with other skin complications
CPT/HCPCS: 36415; 51700; 71045; 80048; 80053; 81001; 82550; 82553; 82728; 82948; 83540; 83735; 83880; 84100; 84466; 84484; 85025; 85610; 85730; 87040; 87086; 93005; 96372; 97139; 99285; G0378; J0696; J1940; J3475; J7050; J7507; J7512; Q4081

== ENCOUNTER 2018-05-03 22:01 | Observation (INO) | payer MEDICARE ==
[~2018-05-03] VITALS: Ht 170.2 cm; Wt 88.9 kg
[~2018-05-03 22:01] MED LIST changes: +BENADRYL25 M1 PO; +MAGNESIUM OXID400 MG PO; +OXYCODONE-ACET1 EAC1 PO
--- OUTSIDE RECORDS SUMMARY | 2018-05-03 22:03 | XMS REPORT | Clinical Summary ---
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 Assessment & Plan: Graft function [...] Type Area Manufactur er 09/06/2016 [id number] / [id number] Adhesion Barrier,Seprafilm 5x6 - Cement/Wong N/A: Abdomen GENZYME [id number] ler/Adhesi SURGICAL Implanted: Qty: 2 on 07/06/2014 by Tippr Amrit Elam MD 02/06/2017 [id number] Adhesion Barrier,Seprafilm 5x6 - Cement/Wong N/A: Abdomen GENZYME [id number] ler/Adhesi SURGICAL Implanted: Qty: 1 on 01/31/2015 by Scripted Amrit Trimble MD [id number] / / Stent,Uret Polaris 5fr X 10cm - Uro Stent [place] [id number] SCIENTIFIC Implanted: Qty: 1 on 05/24/2013 03/09/2016 [id number] / / [id number] Stent,Uret Polaris 5fr X 10cm - Uro Stent Right: Ureter [place] [id number] SCIENTIFIC Implanted: Qty: 1 on 01/21/2014 by Baljit Larson MD Results Not on fileafter 05/02/2017 Insurance Payer Benefit Subscriber ID Type Phone Address Plan / Group [employer] [facility] [facility] Advance Directives For more information, please contact: [facility] [address] [place] [phone] Date Inactivated Comments Code Status Date [...]
--- OUTSIDE RECORDS SUMMARY | 2018-05-03 22:04 | XMS REPORT ---
Author Author S Humberto Chari Organization Unknown Address [address] [facility]. 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 RADHA MARKS Unavailable Unavailable Advance directives Directive Description Status Cardiopulmonary Resuscitation (FULL) Verified By Medical Record Only Allergies Type Substance Reaction Status propensity to adverse reactions No active allergies found for Resident Problems Problem Effective Dates Problem Status J91.8 PLEURAL EFFUSION IN OTHER CONDITIONS CLASSIFIED ELSEWHERE 03/09/2018 Active F32.9 MAJOR DEPRESSIVE DISORDER, SINGLE EPISODE, UNSPECIFIED 03/09/2018 Active I73.9 PERIPHERAL VASCULAR DISEASE, UNSPECIFIED 03/09/2018 Active Type II diabetes mellitus uncontrolled (finding) 03/28/2018 Active I48.91 UNSPECIFIED ATRIAL FIBRILLATION 03/09/2018 Active L89.620 PRESSURE ULCER OF LEFT HEEL, UNSTAGEABLE 03/23/2018 Active I50.9 HEART FAILURE, UNSPECIFIED 03/09/2018 Active S91.301A UNSPECIFIED OPEN WOUND, RIGHT FOOT, INITIAL ENCOUNTER 03/09/2018 Active Z94.0 KIDNEY TRANSPLANT STATUS 03/09/2018 Active Z91.81 HISTORY OF FALLING 03/09/2018 Active S29.9XXA UNSPECIFIED INJURY OF THORAX, INITIAL ENCOUNTER 03/09/2018 Active L03.119 CELLULITIS OF UNSPECIFIED PART OF LIMB 03/09/2018 Active N28.9 DISORDER OF KIDNEY AND URETER, UNSPECIFIED 03/09/2018 Active Medications Medication Dose Form Route Sig Text Dates Status Probiotic Capsule 1 capsule Capsule Oral Give 1 capsule by mouth one time a day for Supplement. for 7 Days 04/03/2018 8:00:00 04/10/2018 7:59:00 Ampicillin Capsule 500 MG 1 capsule Capsule Oral 1 CAP(S) BY MOUTH EVERY 8 HOURS FOR 10 DAYS 03/28/2018 9:00:00 04/07/2018 8:59:00 Completed Aztreonam in Dextrose Solution 1 GM/50ML 0.5 gram Solution Intravenous Use 0.5 gram intravenously every 12 hours related to CELLULITIS OF UNSPECIFIED PART OF LIMB (L03.119) for 10 Days @ 100 mL/H 03/28/2018 9:00:00 04/07/2018 8:59:00 Completed Tylenol Tablet 325 MG 2 tablet Tablet Oral Give 2 tablet by mouth one time only for PAIN for 1 Day Per Randi Lewis Oncall 03/28/2018 1:15:00 03/29/2018 1:14:00 Completed Tuberculin PPD Solution 0.1 ml Solution Intradermal Inject 0.1 ml intradermally one time only for Prophylaxis for 1 Day Adm within first 24 hours of admission. Repeat yearly. 03/27/2018 22:23:00 03/28/2018 22:22:00 Completed Tuberculin PPD Solution 0.1 ml Solution Intradermal Inject 0.1 ml intradermally one time only for Prophylaxis for 1 Day Adm within first 24 hours of admission. Repeat yearly. 03/13/2018 21:00:00 03/14/2018 20:59:00 Completed Prograf Capsule 1 MG 2 capsule Capsule Oral 2 CAP(S) BY MOUTH 2 TIMES A DAY (2CAPS=2MG) RELATED TO KIDNEY TRANSPLANT STATUS (Z94.0) 03/28/2018 9:00:00 Santyl Ointment 250 UNIT/GM Ointment External Apply to Right planter foot topically every day shift for Wound Healing 03/29/2018 7:00:00 03/28/2018 12:55:00 Aborted Calcitriol Capsule 0.5 MCG 1 capsule Capsule Oral 1 CAP(S) BY MOUTH DAILY ON MON/FRI/Fri03/28/2018 9:00:00 HumaLOG Solution 100 UNIT/ML Solution Subcutaneous Inject 5 unit subcutaneously before meals related to TYPE 2 DIABETES MELLITUS WITH HYPERGLYCEMIA (E11.65) AND Inject as per sliding scale: if 150 - 200=3; 201 - 250=6; 251 - 300=9; 301 - 350=12; 351+ Call MD, subcutaneously before meals and at bedtime related to TYPE 2 DIABETES MELLITUS WITH HYPERGLYCEMIA (E11.65) 03/28/2018 11:30:00 03/28/2018 9:32:00 Aborted HydrOXYzine HCl Tablet 25 MG 12.5 mg Tablet Oral 0.5 TAB(S) BY MOUTH DAILY NEEDED (0.5T=12.5MG) 03/27/2018 22:54:00 04/02/2018 14:32:00 Aborted Ferrous Sulfate Tablet 325 (65 Fe) MG 1 tablet Tablet Oral Give 1 tablet by mouth one time a day for supplementation 03/28/2018 9:00:00 Coumadin Tablet 1 MG 1 tablet Tablet Oral 1 TAB(S) BY MOUTH EVERY EVENING EVERY FRI, SAGAR, SAT, SUN RELATED TO UNSPECIFIED ATRIAL FIBRILLATION (I48.91) 03/28/2018 17:00:00 Furosemide Tablet 40 MG 1 tablet Tablet Oral 1 TAB(S) BY MOUTH EVERY 12 HOURS 03/28/2018 9:00:00 PredniSONE Tablet 5 MG 1 tablet Tablet Oral Give 1 tablet by mouth one time a day for CORTICOSTEROIDS 03/28/2018 9:00:00 Coumadin Tablet 2 MG 1 tablet Tablet Oral 1 TAB(S) BY MOUTH DAILY ON FRI/FRI/FRI RELATED TO HEART FAILURE, UNSPECIFIED (I50.9) 03/30/2018 17:00:00 Loratadine Tablet 10 MG 1 tablet Tablet Oral Give 1 tablet by mouth one time a day for Allergy Symptoms 03/28/2018 9:00:00 03/30/2018 3:58:00 Aborted Roxicodone Tablet 5 MG 1 tablet Tablet Oral Give 1 tablet by mouth every 4 hours as needed for Pain Give with Percocet 5-325mg to equal Percocet 10-325mg 03/27/2018 17:30:00 03/30/2018 3:54:00 Aborted Potassium Tablet 40 mEq Tablet Oral Give 40 mEq by mouth one time a day for supplement 03/28/2018 9:00:00 HydrALAZINE HCl Tablet 50 MG 1 tablet Tablet Oral Give 1 tablet by mouth three times a day related to HEART FAILURE, UNSPECIFIED (I50.9) Hold for SBP <130 03/28/2018 9:00:00 Oxycodone-Acetaminophen Tablet 5-325 MG 1 tablet Tablet Oral Give 1 tablet by mouth every 4 hours as needed for PAIN *For Percocet 10-325:Give 1 Percocet 5- 325+ Oxycodone 5mg* 03/27/2018 23:00:00 03/30/2018 3:56:00 Aborted Levemir FlexPen Solution Pen-injector 100 UNIT/ML 10 unit Solution Pen-injector Subcutaneous Inject 10 unit subcutaneously at bedtime for ANTIDIABETICS 03/28/2018 20:00:00 Coumadin Tablet 1 MG 1 tablet Tablet Oral Give 1 tablet by mouth in the evening every e, Sagar, Sat, Sun for ANTICOAGULANTS 03/28/2018 17:00:00 03/28/2018 1:49:00 Aborted PredniSONE Tablet 5 MG 1 tablet Tablet Oral 1 TAB(S) BY MOUTH DAILY FOR KIDNEY TRANSPLANT 03/28/2018 9:00:00 04/02/2018 7:51:00 Aborted HumuLIN R Solution 100 UNIT/ML Solution Injection Inject 5 unit subcutaneously before meals related to TYPE 2 DIABETES MELLITUS WITH HYPERGLYCEMIA (E11.65) AND Inject as per sliding scale: if 150 - 200=3; 201 - 250=6; 251 - 300=9; 301 - 350=12; 351+ Call MD, subcutaneously before meals and at bedtime related to TYPE 2 DIABETES MELLITUS WITH HYPERGLYCEMIA (E11.65) 03/28/2018 11:30:00 Santyl Ointment 250 UNIT/GM Ointment External Apply to Right planter foot topically every day shift for Wound Healing Cleanse with n/s pack with Iodoform gauze, santyl, abd, wrap with kerlix. 03/29/2018 7:00:00 04/03/2018 13:05:00 Aborted Roxicodone Tablet 5 MG 1 tablet Tablet Oral Give 1 tablet by mouth every 4 hours as needed for Pain 03/30/2018 8:00:00 03/30/2018 20:47:00 Aborted OxyCODONE HCl Tablet Abuse-Deterrent 7.5 MG 1 tablet Tablet Abuse-Deterrent Oral 0.5 TAB(S) BY MOUTH EVERY 4 HOURS NEEDED (0.5TAB=2.5MG) 03/30/2018 21:00:00 Ondansetron HCl Tablet 4 MG 1 tablet Tablet Oral 1 TAB(S) BY MOUTH EVERY 6 HOURS NEEDED FOR N/V 04/01/2018 19:17:00 HydrOXYzine HCl Solution 25 MG/ML 0.5 tablet Solution Intramuscular Inject 0.5 tablet intramuscularly every 6 hours as needed for Itching Give half tab. 04/02/2018 13:41:00 04/02/2018 14:28:00 Aborted HydrOXYzine HCl Tablet 25 MG 0.5 tablet Tablet Oral 0.5 TAB(S) BY MOUTH DAILY NEEDED (0.5T=12.5MG) 04/02/2018 22:54:00 Lidocaine Patch 5 % Patch External 1 PATCH(ES) TOPICALLY DAILY - REMOVE IN 12-HOURS (REMOVE OLD PATCH BEFORE APPLYING A NEW ONE) LOCATION : LEFT SHOULDER 04/07/2018 9:00:00 Santyl Ointment 250 UNIT/GM Ointment External Apply to right plantar foot ulcer topically every day shift for wound healing cleanse right plantar foot with ns or wc, appply santyl with nugauze packing and cover daily 04/09/2018 7:00:00 Results Date Test Result Interpretation Reference Range Status Notes Blood sugar 03/28/2018 11:20:00 Blood sugar 245.0 mmol/L 03/28/2018 17:29:40 Blood sugar 164.0 mmol/L 03/28/2018 17:30:01 Blood sugar 164.0 mmol/L 03/28/2018 20:53:37 Blood sugar 213.0 mmol/L 03/28/2018 21:23:05 Blood sugar 213.0 mmol/L 03/29/2018 7:42:00 Blood sugar 155.0 mmol/L 03/29/2018 7:43:00 Blood sugar 155.0 mmol/L 03/29/2018 12:09:00 Blood sugar 274.0 mmol/L 03/29/2018 17:10:03 Blood sugar 206.0 mmol/L 03/29/2018 17:10:19 Blood sugar 206.0 mmol/L 03/29/2018 20:50:21 Blood sugar 163.0 mmol/L 03/29/2018 20:51:03 Blood sugar 163.0 mmol/L 03/30/2018 7:30:00 Blood sugar 206.0 mmol/L 03/30/2018 12:29:11 Blood sugar 178.0 mmol/L 03/30/2018 12:29:37 Blood sugar 178.0 mmol/L 03/30/2018 18:19:36 Blood sugar 348.0 mmol/L 03/30/2018 18:24:17 Blood sugar 348.0 mmol/L 03/30/2018 22:52:42 Blood sugar 315.0 mmol/L 03/30/2018 22:55:03 Blood sugar 315.0 mmol/L 03/31/2018 7:30:00 Blood sugar 120.0 mmol/L 03/31/2018 11:30:00 Blood sugar 187.0 mmol/L 03/31/2018 17:40:29 Blood sugar 209.0 mmol/L 03/31/2018 17:40:45 Blood sugar 209.0 mmol/L 03/31/2018 21:01:25 Blood sugar 365.0 mmol/L 03/31/2018 21:13:15 Blood sugar 365.0 mmol/L 04/01/2018 8:47:03 Blood sugar 113.0 mmol/L 04/01/2018 8:47:24 Blood sugar 113.0 mmol/L 04/01/2018 11:30:00 Blood sugar 130.0 mmol/L 04/01/2018 12:06:44 Blood sugar 130.0 mmol/L 04/01/2018 17:29:04 Blood sugar 198.0 mmol/L 04/01/2018 21:39:58 Blood sugar 256.0 mmol/L 04/01/2018 21:40:52 Blood sugar 256.0 mmol/L 04/02/2018 8:39:02 Blood sugar 187.0 mmol/L 04/02/2018 12:30:30 Blood sugar 154.0 mmol/L 04/02/2018 17:42:59 Blood sugar 154.0 mmol/L 04/02/2018 21:26:06 Blood sugar 240.0 mmol/L 04/02/2018 21:27:06 Blood sugar 240.0 mmol/L 04/03/2018 9:25:24 Blood sugar 245.0 mmol/L 04/03/2018 13:51:32 Blood sugar 240.0 mmol/L 04/03/2018 13:54:54 Blood sugar 240.0 mmol/L 04/03/2018 19:31:07 Blood sugar 152.0 mmol/L 04/03/2018 19:31:24 Blood sugar 152.0 mmol/L 04/03/2018 20:46:14 Blood sugar 224.0 mmol/L 04/03/2018 20:48:46 Blood sugar 224.0 mmol/L 04/04/2018 7:00:00 Blood sugar 167.0 mmol/L 04/04/2018 7:30:00 Blood sugar 167.0 mmol/L 04/04/2018 11:30:00 Blood sugar 120.0 mmol/L 04/04/2018 16:46:21 Blood sugar 169.0 mmol/L 04/04/2018 16:59:19 Blood sugar 169.0 mmol/L 04/04/2018 20:38:09 Blood sugar 242.0 mmol/L 04/04/2018 20:40:58 Blood sugar 242.0 mmol/L 04/05/2018 7:30:00 Blood sugar 143.0 mmol/L 04/05/2018 11:30:00 Blood sugar 212.0 mmol/L 04/05/2018 17:46:09 Blood sugar 237.0 mmol/L 04/05/2018 17:46:43 Blood sugar 237.0 mmol/L 04/05/2018 20:39:43 Blood sugar 141.0 mmol/L 04/05/2018 20:39:59 Blood sugar 141.0 mmol/L 04/06/2018 8:33:39 Blood sugar 144.0 mmol/L 04/06/2018 8:33:56 Blood sugar 144.0 mmol/L 04/06/2018 11:16:04 Blood sugar 185.0 mmol/L 04/06/2018 11:16:29 Blood sugar 185.0 mmol/L 04/06/2018 18:10:52 Blood sugar 244.0 mmol/L 04/06/2018 18:15:21 Blood sugar 244.0 mmol/L 04/06/2018 21:57:38 Blood sugar 253.0 mmol/L 04/06/2018 21:57:54 Blood sugar 253.0 mmol/L 04/07/2018 8:12:53 Blood sugar 116.0 mmol/L 04/07/2018 9:22:11 Blood sugar 115.0 mmol/L 04/07/2018 11:34:00 Blood sugar 127.0 mmol/L 04/07/2018 15:35:43 Blood sugar 127.0 mmol/L 04/07/2018 16:30:00 Blood sugar 337.0 mmol/L 04/07/2018 20:00:00 Blood sugar 302.0 mmol/L 04/08/2018 8:19:32 Blood sugar 116.0 mmol/L 04/08/2018 8:20:19 Blood sugar 116.0 mmol/L Vital signs Description Observation Date RESPIRATION RATE 20.0 /min 03/28/2018 2:51:46 INTRAVASCULAR SYSTOLIC 129.0 mm[Hg] 03/28/2018 2:51:46 INTRAVASCULAR DIASTOLIC 85.0 mm[Hg] 03/28/2018 2:51:46 BODY TEMPERATURE 98.6 [degF] 03/28/2018 2:51:46 HEART BEAT 84.0 {beats}/min 03/28/2018 2:51:46 OXYGEN SATURATION 97.0 % 03/28/2018 2:51:46 PAIN LEVEL 6.0 {score} 03/28/2018 8:43:38 RESPIRATION RATE 20.0 /min 03/28/2018 9:10:00 INTRAVASCULAR SYSTOLIC 139.0 mm[Hg] 03/28/2018 9:10:00 INTRAVASCULAR DIASTOLIC 62.0 mm[Hg] 03/28/2018 9:10:00 BODY TEMPERATURE 98.3 [degF] 03/28/2018 9:10:00 HEART BEAT 82.0 {beats}/min 03/28/2018 9:10:00 OXYGEN SATURATION 96.0 % 03/28/2018 9:10:00 PAIN LEVEL 2.0 {score} 03/28/2018 13:05:55 BODY WEIGHT (MEASURED) 189.0 [lb_av] 03/28/2018 14:36:00 BODY HEIGHT (MEASURED) 67.0 [in_i] 03/28/2018 14:36:00 RESPIRATION RATE 20.0 /min 03/29/2018 1:04:04 INTRAVASCULAR SYSTOLIC 144.0 mm[Hg] 03/29/2018 1:04:04 INTRAVASCULAR DIASTOLIC 75.0 mm[Hg] 03/29/2018 1:04:04 BODY TEMPERATURE 98.2 [degF] 03/29/2018 1:04:04 HEART BEAT 80.0 {beats}/min 03/29/2018 1:04:04 OXYGEN SATURATION 95.0 % 03/29/2018 1:04:04 PAIN LEVEL 0.0 {score} 03/29/2018 8:12:53 PAIN LEVEL 0.0 {score} 03/29/2018 8:13:03 PAIN LEVEL 5.0 {score} 03/29/2018 11:40:21 PAIN LEVEL 5.0 {score} 03/29/2018 11:40:39 PAIN LEVEL 2.0 {score} 03/29/2018 13:05:58 PAIN LEVEL 2.0 {score} 03/29/2018 13:06:09 RESPIRATION RATE 18.0 /min 03/29/2018 13:20:21 INTRAVASCULAR SYSTOLIC 150.0 mm[Hg] 03/29/2018 13:20:21 INTRAVASCULAR DIASTOLIC 82.0 mm[Hg] 03/29/2018 13:20:21 BODY TEMPERATURE 98.0 [degF] 03/29/2018 13:20:21 HEART BEAT 74.0 {beats}/min 03/29/2018 13:20:21 OXYGEN SATURATION 96.0 % 03/29/2018 13:20:21 PAIN LEVEL 7.0 {score} 03/29/2018 18:10:00 PAIN LEVEL 2.0 {score} 03/29/2018 20:20:23 PAIN LEVEL 2.0 {score} 03/29/2018 20:20:37 PAIN LEVEL 0.0 {score} 03/30/2018 8:34:41 PAIN LEVEL 2.0 {score} 03/30/2018 8:35:01 RESPIRATION RATE 18.0 /min 03/30/2018 12:29:52 INTRAVASCULAR SYSTOLIC 148.0 mm[Hg] 03/30/2018 12:29:52 INTRAVASCULAR DIASTOLIC 74.0 mm[Hg] 03/30/2018 12:29:52 BODY TEMPERATURE 97.6 [degF] 03/30/2018 12:29:52 HEART BEAT 77.0 {beats}/min 03/30/2018 12:29:52 OXYGEN SATURATION 97.0 % 03/30/2018 12:29:52 PAIN LEVEL 4.0 {score} 03/30/2018 16:15:00 RESPIRATION RATE 16.0 /min 03/31/2018 5:51:12 INTRAVASCULAR SYSTOLIC 110.0 mm[Hg] 03/31/2018 5:51:12 INTRAVASCULAR DIASTOLIC 75.0 mm[Hg] 03/31/2018 5:51:12 BODY TEMPERATURE 97.5 [degF] 03/31/2018 5:51:12 HEART BEAT 78.0 {beats}/min 03/31/2018 5:51:12 OXYGEN SATURATION 99.0 % 03/31/2018 5:51:12 RESPIRATION RATE 16.0 /min 03/31/2018 6:52:56 INTRAVASCULAR SYSTOLIC 110.0 mm[Hg] 03/31/2018 6:52:56 INTRAVASCULAR DIASTOLIC 75.0 mm[Hg] 03/31/2018 6:52:56 BODY TEMPERATURE 97.5 [degF] 03/31/2018 6:52:56 HEART BEAT 74.0 {beats}/min 03/31/2018 6:52:56 OXYGEN SATURATION 99.0 % 03/31/2018 6:52:56 PAIN LEVEL 5.0 {score} 03/31/2018 8:28:18 PAIN LEVEL 5.0 {score} 03/31/2018 8:28:23 RESPIRATION RATE 18.0 /min 03/31/2018 12:50:45 INTRAVASCULAR SYSTOLIC 122.0 mm[Hg] 03/31/2018 12:50:45 INTRAVASCULAR DIASTOLIC 76.0 mm[Hg] 03/31/2018 12:50:45 BODY TEMPERATURE 97.4 [degF] 03/31/2018 12:50:45 HEART BEAT 76.0 {beats}/min 03/31/2018 12:50:45 OXYGEN SATURATION 98.0 % 03/31/2018 12:50:45 RESPIRATION RATE 18.0 /min 03/31/2018 22:47:34 INTRAVASCULAR SYSTOLIC 124.0 mm[Hg] 03/31/2018 22:47:34 INTRAVASCULAR DIASTOLIC 72.0 mm[Hg] 03/31/2018 22:47:34 BODY TEMPERATURE 97.2 [degF] 03/31/2018 22:47:34 HEART BEAT 74.0 {beats}/min 03/31/2018 22:47:34 OXYGEN SATURATION 97.0 % 03/31/2018 22:47:34 RESPIRATION RATE 18.0 /min 04/01/2018 6:55:30 INTRAVASCULAR SYSTOLIC 122.0 mm[Hg] 04/01/2018 6:55:30 INTRAVASCULAR DIASTOLIC 70.0 mm[Hg] 04/01/2018 6:55:30 BODY TEMPERATURE 97.8 [degF] 04/01/2018 6:55:30 HEART BEAT 70.0 {beats}/min 04/01/2018 6:55:30 OXYGEN SATURATION 97.0 % 04/01/2018 6:55:30 RESPIRATION RATE 18.0 /min 04/01/2018 6:56:14 INTRAVASCULAR SYSTOLIC 122.0 mm[Hg] 04/01/2018 6:56:14 INTRAVASCULAR DIASTOLIC 70.0 mm[Hg] 04/01/2018 6:56:14 BODY TEMPERATURE 97.8 [degF] 04/01/2018 6:56:14 HEART BEAT 70.0 {beats}/min 04/01/2018 6:56:14 OXYGEN SATURATION 97.0 % 04/01/2018 6:56:14 PAIN LEVEL 5.0 {score} 04/01/2018 7:33:13 PAIN LEVEL 0.0 {score} 04/01/2018 8:06:18 PAIN LEVEL 0.0 {score} 04/01/2018 8:06:24 BODY WEIGHT (MEASURED) 191.0 [lb_av] 04/01/2018 13:32:00 RESPIRATION RATE 20.0 /min 04/01/2018 15:02:24 BODY TEMPERATURE 97.9 [degF] 04/01/2018 15:02:24 PAIN LEVEL 2.0 {score} 04/01/2018 16:37:27 RESPIRATION RATE 20.0 /min 04/02/2018 5:42:03 INTRAVASCULAR SYSTOLIC 118.0 mm[Hg] 04/02/2018 5:42:03 INTRAVASCULAR DIASTOLIC 65.0 mm[Hg] 04/02/2018 5:42:03 BODY TEMPERATURE 97.8 [degF] 04/02/2018 5:42:03 HEART BEAT 65.0 {beats}/min 04/02/2018 5:42:03 OXYGEN SATURATION 98.0 % 04/02/2018 5:42:03 PAIN LEVEL 0.0 {score} 04/02/2018 8:11:26 RESPIRATION RATE 20.0 /min 04/02/2018 16:31:29 INTRAVASCULAR SYSTOLIC 126.0 mm[Hg] 04/02/2018 16:31:29 INTRAVASCULAR DIASTOLIC 73.0 mm[Hg] 04/02/2018 16:31:29 BODY TEMPERATURE 98.2 [degF] 04/02/2018 16:31:29 HEART BEAT 64.0 {beats}/min 04/02/2018 16:31:29 OXYGEN SATURATION 97.0 % 04/02/2018 16:31:29 RESPIRATION RATE 20.0 /min 04/03/2018 4:00:58 INTRAVASCULAR SYSTOLIC 141.0 mm[Hg] 04/03/2018 4:00:58 INTRAVASCULAR DIASTOLIC 78.0 mm[Hg] 04/03/2018 4:00:58 BODY TEMPERATURE 97.9 [degF] 04/03/2018 4:00:58 HEART BEAT 79.0 {beats}/min 04/03/2018 4:00:58 OXYGEN SATURATION 99.0 % 04/03/2018 4:00:58 PAIN LEVEL 0.0 {score} 04/03/2018 8:09:40 PAIN LEVEL 6.0 {score} 04/03/2018 15:25:36 HEART BEAT 62.0 {beats}/min 04/03/2018 17:57:00 OXYGEN SATURATION 98.0 % 04/03/2018 17:57:00 RESPIRATION RATE 17.0 /min 04/03/2018 19:32:10 INTRAVASCULAR SYSTOLIC 159.0 mm[Hg] 04/03/2018 19:32:10 INTRAVASCULAR DIASTOLIC 68.0 mm[Hg] 04/03/2018 19:32:10 BODY TEMPERATURE 98.6 [degF] 04/03/2018 19:32:10 HEART BEAT 85.0 {beats}/min 04/03/2018 19:32:10 OXYGEN SATURATION 96.0 % 04/03/2018 19:32:10 RESPIRATION RATE 17.0 /min 04/03/2018 20:53:43 INTRAVASCULAR SYSTOLIC 140.0 mm[Hg] 04/03/2018 20:53:43 INTRAVASCULAR DIASTOLIC 69.0 mm[Hg] 04/03/2018 20:53:43 BODY TEMPERATURE 98.3 [degF] 04/03/2018 20:53:43 HEART BEAT 85.0 {beats}/min 04/03/2018 20:53:43 OXYGEN SATURATION 97.0 % 04/03/2018 20:53:43 PAIN LEVEL 0.0 {score} 04/04/2018 0:24:49 PAIN LEVEL 7.0 {score} 04/04/2018 1:41:01 PAIN LEVEL 0.0 {score} 04/04/2018 2:27:26 RESPIRATION RATE 18.0 /min 04/04/2018 3:56:16 INTRAVASCULAR SYSTOLIC 129.0 mm[Hg] 04/04/2018 3:56:16 INTRAVASCULAR DIASTOLIC 74.0 mm[Hg] 04/04/2018 3:56:16 BODY TEMPERATURE 97.5 [degF] 04/04/2018 3:56:16 HEART BEAT 80.0 {beats}/min 04/04/2018 3:56:16 OXYGEN SATURATION 98.0 % 04/04/2018 3:56:16 PAIN LEVEL 5.0 {score} 04/04/2018 7:28:04 PAIN LEVEL 3.0 {score} 04/04/2018 8:16:47 RESPIRATION RATE 18.0 /min 04/04/2018 12:02:15 INTRAVASCULAR SYSTOLIC 125.0 mm[Hg] 04/04/2018 12:02:15 INTRAVASCULAR DIASTOLIC 76.0 mm[Hg] 04/04/2018 12:02:15 BODY TEMPERATURE 97.4 [degF] 04/04/2018 12:02:15 HEART BEAT 78.0 {beats}/min 04/04/2018 12:02:15 OXYGEN SATURATION 98.0 % 04/04/2018 12:02:15 RESPIRATION RATE 17.0 /min 04/04/2018 20:42:14 INTRAVASCULAR SYSTOLIC 120.0 mm[Hg] 04/04/2018 20:42:14 INTRAVASCULAR DIASTOLIC 72.0 mm[Hg] 04/04/2018 20:42:14 BODY TEMPERATURE 98.8 [degF] 04/04/2018 20:42:14 HEART BEAT 65.0 {beats}/min 04/04/2018 20:42:14 OXYGEN SATURATION 98.0 % 04/04/2018 20:42:14 RESPIRATION RATE 17.0 /min 04/04/2018 20:45:00 INTRAVASCULAR SYSTOLIC 120.0 mm[Hg] 04/04/2018 20:45:00 INTRAVASCULAR DIASTOLIC 72.0 mm[Hg] 04/04/2018 20:45:00 BODY TEMPERATURE 98.8 [degF] 04/04/2018 20:45:00 HEART BEAT 65.0 {beats}/min 04/04/2018 20:45:00 OXYGEN SATURATION 98.0 % 04/04/2018 20:45:00 RESPIRATION RATE 18.0 /min 04/05/2018 3:52:36 INTRAVASCULAR SYSTOLIC 147.0 mm[Hg] 04/05/2018 3:52:36 INTRAVASCULAR DIASTOLIC 65.0 mm[Hg] 04/05/2018 3:52:36 BODY TEMPERATURE 97.5 [degF] 04/05/2018 3:52:36 HEART BEAT 87.0 {beats}/min 04/05/2018 3:52:36 OXYGEN SATURATION 99.0 % 04/05/2018 3:52:36 PAIN LEVEL 5.0 {score} 04/05/2018 7:21:31 PAIN LEVEL 5.0 {score} 04/05/2018 8:14:36 RESPIRATION RATE 18.0 /min 04/05/2018 11:17:07 INTRAVASCULAR SYSTOLIC 138.0 mm[Hg] 04/05/2018 11:17:07 INTRAVASCULAR DIASTOLIC 74.0 mm[Hg] 04/05/2018 11:17:07 BODY TEMPERATURE 98.1 [degF] 04/05/2018 11:17:07 HEART BEAT 88.0 {beats}/min 04/05/2018 11:17:07 OXYGEN SATURATION 98.0 % 04/05/2018 11:17:07 RESPIRATION RATE 17.0 /min 04/05/2018 20:46:55 INTRAVASCULAR SYSTOLIC 132.0 mm[Hg] 04/05/2018 20:46:55 INTRAVASCULAR DIASTOLIC 74.0 mm[Hg] 04/05/2018 20:46:55 BODY TEMPERATURE 98.8 [degF] 04/05/2018 20:46:55 HEART BEAT 70.0 {beats}/min 04/05/2018 20:46:55 OXYGEN SATURATION 97.0 % 04/05/2018 20:46:55 RESPIRATION RATE 17.0 /min 04/05/2018 20:47:58 INTRAVASCULAR SYSTOLIC 132.0 mm[Hg] 04/05/2018 20:47:58 INTRAVASCULAR DIASTOLIC 74.0 mm[Hg] 04/05/2018 20:47:58 BODY TEMPERATURE 98.8 [degF] 04/05/2018 20:47:58 HEART BEAT 70.0 {beats}/min 04/05/2018 20:47:58 OXYGEN SATURATION 97.0 % 04/05/2018 20:47:58 PAIN LEVEL 8.0 {score} 04/06/2018 1:49:49 PAIN LEVEL 0.0 {score} 04/06/2018 2:46:38 RESPIRATION RATE 18.0 /min 04/06/2018 3:08:33 INTRAVASCULAR SYSTOLIC 129.0 mm[Hg] 04/06/2018 3:08:33 INTRAVASCULAR DIASTOLIC 83.0 mm[Hg] 04/06/2018 3:08:33 BODY TEMPERATURE 98.3 [degF] 04/06/2018 3:08:33 HEART BEAT 66.0 {beats}/min 04/06/2018 3:08:33 OXYGEN SATURATION 96.0 % 04/06/2018 3:08:33 PAIN LEVEL 0.0 {score} 04/06/2018 8:36:42 RESPIRATION RATE 18.0 /min 04/06/2018 11:57:39 INTRAVASCULAR SYSTOLIC 125.0 mm[Hg] 04/06/2018 11:57:39 INTRAVASCULAR DIASTOLIC 74.0 mm[Hg] 04/06/2018 11:57:39 BODY TEMPERATURE 97.8 [degF] 04/06/2018 11:57:39 HEART BEAT 73.0 {beats}/min 04/06/2018 11:57:39 OXYGEN SATURATION 95.0 % 04/06/2018 11:57:39 RESPIRATION RATE 18.0 /min 04/06/2018 23:34:09 INTRAVASCULAR SYSTOLIC 128.0 mm[Hg] 04/06/2018 23:34:09 INTRAVASCULAR DIASTOLIC 66.0 mm[Hg] 04/06/2018 23:34:09 BODY TEMPERATURE 98.0 [degF] 04/06/2018 23:34:09 HEART BEAT 72.0 {beats}/min 04/06/2018 23:34:09 OXYGEN SATURATION 96.0 % 04/06/2018 23:34:09 PAIN LEVEL 5.0 {score} 04/07/2018 7:34:46 PAIN LEVEL 5.0 {score} 04/07/2018 8:16:02 PAIN LEVEL 4.0 {score} 04/07/2018 15:00:00 PAIN LEVEL 0.0 {score} 04/07/2018 16:00:00 RESPIRATION RATE 18.0 /min 04/07/2018 16:38:23 INTRAVASCULAR SYSTOLIC 151.0 mm[Hg] 04/07/2018 16:38:23 INTRAVASCULAR DIASTOLIC 59.0 mm[Hg] 04/07/2018 16:38:23 BODY TEMPERATURE 96.4 [degF] 04/07/2018 16:38:23 HEART BEAT 82.0 {beats}/min 04/07/2018 16:38:23 OXYGEN SATURATION 96.0 % 04/07/2018 16:38:23 PAIN LEVEL 7.0 {score} 04/07/2018 19:05:00 RESPIRATION RATE 18.0 /min 04/07/2018 19:30:58 INTRAVASCULAR SYSTOLIC 148.0 mm[Hg] 04/07/2018 19:30:58 INTRAVASCULAR DIASTOLIC 60.0 mm[Hg] 04/07/2018 19:30:58 BODY TEMPERATURE 96.8 [degF] 04/07/2018 19:30:58 HEART BEAT 80.0 {beats}/min 04/07/2018 19:30:58 OXYGEN SATURATION 97.0 % 04/07/2018 19:30:58 RESPIRATION RATE 18.0 /min 04/07/2018 19:32:27 INTRAVASCULAR SYSTOLIC 148.0 mm[Hg] 04/07/2018 19:32:27 INTRAVASCULAR DIASTOLIC 60.0 mm[Hg] 04/07/2018 19:32:27 BODY TEMPERATURE 96.8 [degF] 04/07/2018 19:32:27 HEART BEAT 80.0 {beats}/min 04/07/2018 19:32:27 OXYGEN SATURATION 97.0 % 04/07/2018 19:32:27 PAIN LEVEL 0.0 {score} 04/07/2018 20:05:00 RESPIRATION RATE 18.0 /min 04/08/2018 7:36:26 INTRAVASCULAR SYSTOLIC 146.0 mm[Hg] 04/08/2018 7:36:26 INTRAVASCULAR DIASTOLIC 59.0 mm[Hg] 04/08/2018 7:36:26 BODY TEMPERATURE 98.6 [degF] 04/08/2018 7:36:26 HEART BEAT 89.0 {beats}/min 04/08/2018 7:36:26 OXYGEN SATURATION 99.0 % 04/08/2018 7:36:26 PAIN LEVEL 0.0 {score} 04/08/2018 8:08:53 BODY WEIGHT (MEASURED) 189.0 [lb_av] 04/08/2018 11:28:00 RESPIRATION RATE 18.0 /min 04/08/2018 13:19:55 INTRAVASCULAR SYSTOLIC 136.0 mm[Hg] 04/08/2018 13:19:55 INTRAVASCULAR DIASTOLIC 72.0 mm[Hg] 04/08/2018 13:19:55 BODY TEMPERATURE 97.9 [degF] 04/08/2018 13:19:55 HEART BEAT 88.0 {beats}/min 04/08/2018 13:19:55 OXYGEN SATURATION 98.0 % 04/08/2018 13:19:55 Immunizations Vaccine Date Status Reason Influenza, seasonal, injectable 01/08/2018 Completed pneumococcal polysaccharide vaccine, 23 valent 03/28/2018 Refused Family Refused tuberculin skin test; purified protein derivative solution, intradermal 03/28/2018 13:00:00 Completed Social History Smoking Status Start Date End Date Unknown if ever smoked 04/08/2018 17:10:09
--- OUTSIDE RECORDS SUMMARY | 2018-05-03 22:04 | XMS REPORT | Continuity of Care Document ---
Author Author Gene Tapia Interface Address Unknown Phone Unavailable Problems Problem Status Onset Date Classification Date Reported Comments Source Type II diabetes mellitus uncontrolled 03/28/2018 [facility]/08[facility]2018 [facility] L89.620 PRESSURE ULCER OF LEFT HEEL, UNSTAGEABLE 03/23/2018 Diagnosis 04/08/2018 [facility] J91.8 PLEURAL EFFUSION IN OTHER CONDITIONS CLASSIFIED ELSEWHERE 03/09/2018 [facility] F32.9 MAJOR DEPRESSIVE DISORDER, SINGLE EPISODE, UNSPECIFIED 03/09/2018 Diagnosis 04/08/2018 [facility] I73.9 PERIPHERAL VASCULAR DISEASE, UNSPECIFIED 03/09/2018 Diagnosis 04/08/2018 [facility] I48.91 UNSPECIFIED ATRIAL FIBRILLATION 03/09/2018 Diagnosis 04/08/2018 SNF: [facility] I50.9 HEART FAILURE, UNSPECIFIED 03/09/2018 Diagnosis 04/08/2018 [facility] S91.301A UNSPECIFIED OPEN WOUND, RIGHT FOOT, INITIAL ENCOUNTER 03/09/2018 Diagnosis 04/08/2018 SNF: [facility] Z94.0 KIDNEY TRANSPLANT STATUS 03/09/2018 Diagnosis 04/08/2018 SNF: [facility] Z91.81 HISTORY OF FALLING 03/09/2018 Diagnosis 04/08/2018 SNF: [facility] S29.9XXA UNSPECIFIED INJURY OF THORAX, INITIAL ENCOUNTER 03/09/2018 Diagnosis 04/08/2018 [facility] L03.119 CELLULITIS OF UNSPECIFIED PART OF LIMB 03/09/2018 Diagnosis 04/08/2018 SNF: [facility] N28.9 DISORDER OF KIDNEY AND URETER, UNSPECIFIED 03/09/2018 Diagnosis 04/08/2018 [facility] Medications Medication Details Route Status Patient Instructions Ordering Provider Order Date Source Santyl Ointment 250 UNIT/GM Apply to right plantar foot ulcer topically every day shift for wound healing cleanse right plantar foot with ns or wc, appply santyl with nugauze packing and cover daily External Active 04/09/2018 SNF: [facility] Lidocaine Patch 5 % 1 PATCH(ES) TOPICALLY DAILY - REMOVE IN 12-HOURS (REMOVE OLD PATCH BEFORE APPLYING A NEW ONE) LOCATION : LEFT SHOULDER External Active 04/07/2018 [facility] Probiotic Capsule Give 1 capsule by mouth one time a day for Supplement. for 7 Days Oral Active 04/03/2018 [facility] HydrOXYzine HCl Tablet 25 MG 0.5 TAB(S) BY MOUTH DAILY NEEDED (0.5T=12.5MG) Oral Active 04/03/2018 [facility] HydrOXYzine HCl Solution 25 MG/ML Inject 0.5 tablet intramuscularly every 6 hours as needed for Itching Give half tab. Intramuscular Inactive 04/02/2018 SNF: [facility] Ondansetron HCl Tablet 4 MG 1 TAB(S) BY MOUTH EVERY 6 HOURS NEEDED FOR N/V Oral Active 04/02/2018 SNF: [facility] OxyCODONE HCl Tablet Abuse-Deterrent 7.5 MG 0.5 TAB(S) BY MOUTH EVERY 4 HOURS NEEDED (0.5TAB=2.5MG) Oral Active 03/31/2018 [facility] Coumadin Tablet 2 MG 1 TAB(S) BY MOUTH DAILY ON FRI/FRI/FRI RELATED TO HEART FAILURE, UNSPECIFIED (I50.9) Oral Active 03/30/2018 SNF: [facility] Roxicodone Tablet 5 MG Give 1 tablet by mouth every 4 hours as needed for Pain Oral Inactive 03/30/2018 SNF: [facility] Santyl Ointment 250 UNIT/GM Apply to Right planter foot topically every day shift for Wound Healing External Active 03/29/2018 [facility] Levemir FlexPen Solution Pen-injector 100 UNIT/ML Inject 10 unit subcutaneously at bedtime for ANTIDIABETICS Subcutaneous Active 03/29/2018 SNF: [facility] Coumadin Tablet 1 MG 1 TAB(S) BY MOUTH EVERY EVENING EVERY TUE, SAGAR, SAT, SUN RELATED TO UNSPECIFIED ATRIAL FIBRILLATION (I48.91) Oral Active 03/28/2018 SNF: [facility] HumaLOG Solution 100 UNIT/ML Inject 5 unit subcutaneously before meals related to TYPE 2 DIABETES MELLITUS WITH HYPERGLYCEMIA (E11.65) AND Inject as per sliding scale: if 150 - 200=3; 201 - 250=6; 251 - 300=9; 301 - 350=12; 351+ Call MD, subcutaneously before meals and at bedtime related to TYPE 2 DIABETES MELLITUS WITH HYPERGLYCEMIA (E11.65) Subcutaneous Inactive 03/28/2018 SNF: [facility] HumuLIN R Solution 100 UNIT/ML Inject 5 unit subcutaneously before meals related to TYPE 2 DIABETES MELLITUS WITH HYPERGLYCEMIA (E11.65) AND Inject as per sliding scale: if 150 - 200=3; 201 - 250=6; 251 - 300=9; 301 - 350=12; 351+ Call MD, subcutaneously before meals and at bedtime related to TYPE 2 DIABETES MELLITUS WITH HYPERGLYCEMIA (E11.65) Injection Active 03/28/2018 SNF: [facility] Ampicillin Capsule 500 MG 1 CAP(S) BY MOUTH EVERY 8 HOURS FOR 10 DAYS Oral Active 03/28/2018 SNF: [facility] Aztreonam in Dextrose Solution 1 GM/50ML Use 0.5 gram intravenously every 12 hours related to CELLULITIS OF UNSPECIFIED PART OF LIMB (L03.119) for 10 Days @ 100 mL/H Intravenous Active 03/28/2018 SNF: [facility] Prograf Capsule 1 MG 2 CAP(S) BY MOUTH 2 TIMES A DAY (2CAPS=2MG) RELATED TO KIDNEY TRANSPLANT STATUS (Z94.0) Oral Active 03/28/2018 SNF: [facility] Calcitriol Capsule 0.5 MCG 1 CAP(S) BY MOUTH DAILY ON MON/FRI/FRI Oral Active 03/28/2018 SNF: [facility] Ferrous Sulfate Tablet 325 (65 Fe) MG Give 1 tablet by mouth one time a day for supplementation Oral Active 03/28/2018 SNF: [facility] Furosemide Tablet 40 MG 1 TAB(S) BY MOUTH EVERY 12 HOURS Oral Active 03/28/2018 SNF: [facility] PredniSONE Tablet 5 MG Give 1 tablet by mouth one time a day for CORTICOSTEROIDS Oral Active 03/28/2018 SNF: [facility] Loratadine Tablet 10 MG Give 1 tablet by mouth one time a day for Allergy Symptoms Oral Active 03/28/2018 SNF: [facility] Potassium Tablet Give 40 mEq by mouth one time a day for supplement Oral Active 03/28/2018 SNF: [facility] HydrALAZINE HCl Tablet 50 MG Give 1 tablet by mouth three times a day related to HEART FAILURE, UNSPECIFIED (I50.9) Hold for SBP <130 Oral Active 03/28/2018 SNF: [facility] Tylenol Tablet 325 MG Give 2 tablet by mouth one time only for PAIN for 1 Day Per Randi Strickland Oral Active 03/28/2018 SNF: [facility] Oxycodone-Acetaminophen Tablet 5-325 MG Give 1 tablet by mouth every 4 hours as needed for PAIN *For Percocet 10-325:Give 1 Percocet 5- 325+ Oxycodone 5mg* Oral Active 03/28/2018 SNF: [facility] HydrOXYzine HCl Tablet 25 MG 0.5 TAB(S) BY MOUTH DAILY NEEDED (0.5T=12.5MG) Oral Active 03/28/2018 SNF: [facility] Tuberculin PPD Solution Inject 0.1 ml intradermally one time only for Prophylaxis for 1 Day Adm within first 24 hours of admission. Repeat yearly. Intradermal Active 03/28/2018 SNF: [facility] Roxicodone Tablet 5 MG Give 1 tablet by mouth every 4 hours as needed for Pain Give with Percocet 5-325mg to equal Percocet 10-325mg Oral Active 03/27/2018 SNF: [facility] Tuberculin PPD Solution Inject 0.1 ml intradermally one time only for Prophylaxis for 1 Day Adm within first 24 hours of admission. Repeat yearly. Intradermal Active 03/14/2018 SNF: [facility] Allergies, Adverse Reactions, Alerts Substance Category Reaction Severity Reaction type Status Date Reported Comments Source Immunizations Immunization Date Given Site Status Last Updated Comments Source tuberculin skin test; purified protein derivative solution, intradermal 03/28/2018 completed Sidra Caldwell SNF: [facility] pneumococcal polysaccharide vaccine, 23 valent 03/28/2018 Not Given SNF: [facility] Influenza, seasonal, injectable 01/08/2018 completed SNF: [facility] Results Order Name Results Value Reference Range Date Interpretation Comments Source Blood sugar Blood sugar 116 mmol/L 04/08/2018 SNF: [facility] Blood sugar Blood sugar 116 mmol/L 04/08/2018 SNF: [facility] Blood sugar Blood sugar 302 mmol/L 04/08/2018 SNF: [facility] Blood sugar Blood sugar 337 mmol/L 04/07/2018 SNF: [facility] Blood sugar Blood sugar 127 mmol/L 04/07/2018 SNF: [facility] Blood sugar Blood sugar 127 mmol/L 04/07/2018 SNF: [facility] Blood sugar Blood sugar 115 mmol/L 04/07/2018 SNF: [facility] Blood sugar Blood sugar 116 mmol/L 04/07/2018 SNF: [facility] Blood sugar Blood sugar 253 mmol/L 04/07/2018 SNF: [facility] Blood sugar Blood sugar 253 mmol/L 04/07/2018 SNF: [facility] Blood sugar Blood sugar 244 mmol/L 04/06/2018 SNF: [facility] Blood sugar Blood sugar 244 mmol/L 04/06/2018 SNF: [facility] Blood sugar Blood sugar 185 mmol/L 04/06/2018 SNF: [facility] Blood sugar Blood sugar 185 mmol/L 04/06/2018 SNF: [facility] Blood sugar Blood sugar 144 mmol/L 04/06/2018 SNF: [facility] Blood sugar Blood sugar 144 mmol/L 04/06/2018 SNF: [facility] Blood sugar Blood sugar 141 mmol/L 04/06/2018 SNF: [facility] Blood sugar Blood sugar 141 mmol/L 04/06/2018 SNF: [facility] Blood sugar Blood sugar 237 mmol/L 04/05/2018 SNF: [facility] Blood sugar Blood sugar 237 mmol/L 04/05/2018 SNF: [facility] Blood sugar Blood sugar 212 mmol/L 04/05/2018 SNF: [facility] Blood sugar Blood sugar 143 mmol/L 04/05/2018 SNF: [facility] Blood sugar Blood sugar 242 mmol/L 04/05/2018 SNF: [facility] Blood sugar Blood sugar 242 mmol/L 04/05/2018 SNF: [facility] Blood sugar Blood sugar 169 mmol/L 04/04/2018 SNF: [facility] Blood sugar Blood sugar 169 mmol/L 04/04/2018 SNF: [facility] Blood sugar Blood sugar 120 mmol/L 04/04/2018 SNF: [facility] Blood sugar Blood sugar 167 mmol/L 04/04/2018 SNF: [facility] Blood sugar Blood sugar 167 mmol/L 04/04/2018 SNF: [facility] Blood sugar Blood sugar 224 mmol/L 04/04/2018 SNF: [facility] Blood sugar Blood sugar 224 mmol/L 04/04/2018 SNF: [facility] Blood sugar Blood sugar 152 mmol/L 04/04/2018 SNF: [facility] Blood sugar Blood sugar 152 mmol/L 04/04/2018 SNF: [facility] Blood sugar Blood sugar 240 mmol/L 04/03/2018 SNF: [facility] Blood sugar Blood sugar 240 mmol/L 04/03/2018 SNF: [facility] Blood sugar Blood sugar 245 mmol/L 04/03/2018 SNF: [facility] Blood sugar Blood sugar 240 mmol/L 04/03/2018 SNF: [facility] Blood sugar Blood sugar 240 mmol/L 04/03/2018 SNF: [facility] Blood sugar Blood sugar 154 mmol/L 04/02/2018 SNF: [facility] Blood sugar Blood sugar 154 mmol/L 04/02/2018 SNF: [facility] Blood sugar Blood sugar 187 mmol/L 04/02/2018 SNF: [facility] Blood sugar Blood sugar 256 mmol/L 04/02/2018 SNF: [facility] Blood sugar Blood sugar 256 mmol/L 04/02/2018 SNF: [facility] Blood sugar Blood sugar 198 mmol/L 04/01/2018 SNF: [facility] Blood sugar Blood sugar 130 mmol/L 04/01/2018 SNF: [facility] Blood sugar Blood sugar 130 mmol/L 04/01/2018 SNF: [facility] Blood sugar Blood sugar 113 mmol/L 04/01/2018 SNF: [facility] Blood sugar Blood sugar 113 mmol/L 04/01/2018 SNF: [facility] Blood sugar Blood sugar 365 mmol/L 04/01/2018 SNF: [facility] Blood sugar Blood sugar 365 mmol/L 04/01/2018 SNF: [facility] Blood sugar Blood sugar 209 mmol/L 03/31/2018 SNF: [facility] Blood sugar Blood sugar 209 mmol/L 03/31/2018 SNF: [facility] Blood sugar Blood sugar 187 mmol/L 03/31/2018 SNF: [facility] Blood sugar Blood sugar 120 mmol/L 03/31/2018 SNF: [facility] Blood sugar Blood sugar 315 mmol/L 03/31/2018 SNF: [facility] Blood sugar Blood sugar 315 mmol/L 03/31/2018 SNF: [facility] Blood sugar Blood sugar 348 mmol/L 03/30/2018 SNF: [facility] Blood sugar Blood sugar 348 mmol/L 03/30/2018 SNF: [facility] Blood sugar Blood sugar 178 mmol/L 03/30/2018 SNF: [facility] Blood sugar Blood sugar 178 mmol/L 03/30/2018 SNF: [facility] Blood sugar Blood sugar 206 mmol/L 03/30/2018 SNF: [facility] Blood sugar Blood sugar 163 mmol/L 03/30/2018 SNF: [facility] Blood sugar Blood sugar 163 mmol/L 03/30/2018 SNF: [facility] Blood sugar Blood sugar 206 mmol/L 03/29/2018 SNF: [facility] Blood sugar Blood sugar 206 mmol/L 03/29/2018 SNF: [facility] Blood sugar Blood sugar 274 mmol/L 03/29/2018 SNF: [facility] Blood sugar Blood sugar 155 mmol/L 03/29/2018 SNF: [facility] Blood sugar Blood sugar 155 mmol/L 03/29/2018 SNF: [facility] Blood sugar Blood sugar 213 mmol/L 03/29/2018 SNF: [facility] Blood sugar Blood sugar 213 mmol/L 03/29/2018 SNF: [facility] Blood sugar Blood sugar 164 mmol/L 03/28/2018 SNF: [facility] Blood sugar Blood sugar 164 mmol/L 03/28/2018 SNF: [facility] Blood sugar Blood sugar 245 mmol/L 03/28/2018 SNF: [facility] Vital Signs Vital Sign Value Date Comments Source Respitory Rate 18 04/08/2018 SNF: [facility] Systolic (mm Hg) 136 04/08/2018 SNF: [facility] Diastolic (mm Hg) 72 04/08/2018 SNF: [facility] Temperature Oral (F) 97.9 F 04/08/2018 SNF: [facility] Heart Rate 88 {beats}/min 04/08/2018 SNF: [facility] Weight 189 04/08/2018 SNF: [facility] Respitory Rate 18 04/08/2018 SNF: [facility] Systolic (mm Hg) 146 04/08/2018 SNF: [facility] Diastolic (mm Hg) 59 04/08/2018 SNF: [facility] Temperature Oral (F) 98.6 F 04/08/2018 SNF: [facility] Heart Rate 89 {beats}/min 04/08/2018 SNF: [facility] Respitory Rate 18 04/08/2018 SNF: [facility] Systolic (mm Hg) 148 04/08/2018 SNF: [facility] Diastolic (mm Hg) 60 04/08/2018 SNF: [facility] Temperature Oral (F) 96.8 F 04/08/2018 SNF: [facility] Heart Rate 80 {beats}/min 04/08/2018 SNF: [facility] Respitory Rate 18 04/08/2018 SNF: [facility] Systolic (mm Hg) 148 04/08/2018 [facility] Diastolic (mm Hg) 60 04/08/2018 [facility] Temperature Oral (F) 96.8 F 04/08/2018 [facility] Heart Rate 80 {beats}/min 04/08/2018 [facility] Respitory Rate 18 04/07/2018 [facility] [place] Systolic (mm Hg) 151 04/07/2018 [facility] [place] Diastolic (mm Hg) 59 04/07/2018 [facility]: [facility] Temperature Oral (F) 96.4 F 04/07/2018 [facility]: [facility] [place] Heart Rate 82 {beats}/min 04/07/2018 SN[facility]: [facility] [place] Respitory Rate 18 04/07/2018 SN[facility]: [facility] Systolic (mm Hg) 128 04/07/2018 [facility] [place] Diastolic (mm Hg) 66 04/07/2018 SNF: [facility] Temperature Oral (F) 98 F 04/07/2018 SN[facility]: [facility] Heart Rate 72 {beats}/min 04/07/2018 [facility] [place] Respitory Rate 18 04[facility]06/2018 [facility] Systolic (mm Hg) 125 04/06/2018 [facility]: [facility] [place] Diastolic (mm Hg) 74 04/06/2018 SNF: [facility] Temperature Oral (F) 97.8 F 04/06/2018 [facility] Heart Rate 73 {beats}/min 04/06/2018 [facility]: [facility] [place] Respitory Rate 18 04/06/2018 [facility] [place] Systolic (mm Hg) 129 04/06/2018 [facility] [place] Diastolic (mm Hg) 83 04/06/2018 [facility] Temperature Oral (F) 98.3 F 04/06/2018 SN[facility]: [facility] [place] Heart Rate 66 {beats}/min 04/06/2018 SNF: [facility] Respitory Rate 17 04/06/2018 SNF: [facility] Systolic (mm Hg) 132 04/06/2018 [facility]: [facility] [place] Diastolic (mm Hg) 74 04/06/2018 SNF: [facility] Temperature Oral (F) 98.8 F 04/06/2018 SNF: [facility] Heart Rate 70 {beats}/min 04/06/2018 SNF: [facility] [place] Respitory Rate 17 04/06/2018 SNF: [facility] [place] Systolic (mm Hg) 132 04/06/2018 SNF: [facility] [place] Diastolic (mm Hg) 74 04/06/2018 SNF: [facility] Temperature Oral (F) 98.8 F 04/06/2018 SNF: [facility] Heart Rate 70 {beats}/min 04/06/2018 SNF: [facility] Respitory Rate 18 04/05/2018 SNF: [facility] Systolic (mm Hg) 138 04/05/2018 SNF: [facility] Diastolic (mm Hg) 74 04/05/2018 SNF: [facility] Temperature Oral (F) 98.1 F 04/05/2018 SNF: [facility] Heart Rate 88 {beats}/min 04/05/2018 SNF: [facility] Respitory Rate 18 04/05/2018 SNF: [facility] Systolic (mm Hg) 147 04/05/2018 SNF: [facility] Diastolic (mm Hg) 65 04/05/2018 SNF: [facility] Temperature Oral (F) 97.5 F 04/05/2018 SNF: [facility] Heart Rate 87 {beats}/min 04/05/2018 SNF: [facility] Respitory Rate 17 04/05/2018 SNF: [facility] Systolic (mm Hg) 120 04/05/2018 SNF: [facility] Diastolic (mm Hg) 72 04/05/2018 SNF: [facility] Temperature Oral (F) 98.8 F 04/05/2018 SNF: [facility] Heart Rate 65 {beats}/min 04/05/2018 SN[facility]: [facility] Respitory Rate 17 04/05/2018 [facility] [place] Systolic (mm Hg) 120 04/05/2018 [facility] [place] Diastolic (mm Hg) 72 04/05/2018 SNF: [facility] Temperature Oral (F) 98.8 F 04/05/2018 SNF: [facility] Heart Rate 65 {beats}/min 04/05/2018 [facility]: [facility] [place] Respitory Rate 18 04/04/2018 SNF: [facility] [place] Systolic (mm Hg) 125 04/04/2018 [facility]: [facility] [place] Diastolic (mm Hg) 76 04/04/2018 SNF: [facility] Temperature Oral (F) 97.4 F 04/04/2018 SNF: [facility] Heart Rate 78 {beats}/min 04/04/2018 [facility] Respitory Rate 18 04/04/2018 SNF: [facility] Systolic (mm Hg) 129 04/04/2018 SNF: [facility] [place] Diastolic (mm Hg) 74 04/04/2018 SNF: [facility] Temperature Oral (F) 97.5 F 04/04/2018 SNF: [facility] Heart Rate 80 {beats}/min 04/04/2018 [facility] Respitory Rate 17 04/04/2018 [facility]: [facility] Systolic (mm Hg) 140 04/04/2018 SN[facility]: [facility] [place] Diastolic (mm Hg) 69 04/04/2018 SNF: [facility] Temperature Oral (F) 98.3 F 04/04/2018 SNF: [facility] Heart Rate 85 {beats}/min 04/04/2018 SN[facility]: [facility] [place] Respitory Rate 17 04/04/2018 SNF: [facility] Systolic (mm Hg) 159 04/04/2018 SN[facility]: [facility] [place] Diastolic (mm Hg) 68 04/04/2018 SN[facility]: [facility] Temperature Oral (F) 98.6 F 04/04/2018 SNF: [facility] Heart Rate 85 {beats}/min 04/04/2018 SNF: [facility] [place] Heart Rate 62 {beats}/min 04/03/2018 [facility] Respitory Rate 20 04/03/2018 SNF: [facility] Systolic (mm Hg) 141 04/03/2018 SNF: [facility] Diastolic (mm Hg) 78 04/03/2018 SNF: [facility] Temperature Oral (F) 97.9 F 04/03/2018 SNF: [facility] Heart Rate 79 {beats}/min 04/03/2018 [facility] Respitory Rate 20 04/02/2018 SNF: [facility] Systolic (mm Hg) 126 04/02/2018 SNF: [facility] Diastolic (mm Hg) 73 04/02/2018 SNF: [facility] Temperature Oral (F) 98.2 F 04/02/2018 SNF: [facility] Heart Rate 64 {beats}/min 04/02/2018 SNF: [facility] Respitory Rate 20 04/02/2018 SNF: [facility] Systolic (mm Hg) 118 04/02/2018 SNF: [facility] Diastolic (mm Hg) 65 04/02/2018 SNF: [facility] Temperature Oral (F) 97.8 F 04/02/2018 SNF: [facility] Heart Rate 65 {beats}/min 04/02/2018 SNF: [facility] Respitory Rate 20 04/01/2018 SNF: [facility] Temperature Oral (F) 97.9 F 04/01/2018 SNF: [facility] Weight 191 04/01/2018 SNF: [facility] Respitory Rate 18 04/01/2018 SNF: [facility] Systolic (mm Hg) 122 04/01/2018 SNF: [facility] Diastolic (mm Hg) 70 04/01/2018 SNF: [facility] Temperature Oral (F) 97.8 F 04/01/2018 SNF: [facility] Heart Rate 70 {beats}/min 04/01/2018 SNF: [facility] Respitory Rate 18 04/01/2018 SNF: [facility] Systolic (mm Hg) 122 04/01/2018 SNF: [facility] Diastolic (mm Hg) 70 04/01/2018 SNF: [facility] Temperature Oral (F) 97.8 F 04/01/2018 SNF: [facility] Heart Rate 70 {beats}/min 04/01/2018 SNF: [facility] Respitory Rate 18 04/01/2018 SNF: [facility] Systolic (mm Hg) 124 04/01/2018 SNF: [facility] Diastolic (mm Hg) 72 04/01/2018 SNF: [facility] Temperature Oral (F) 97.2 F 04/01/2018 SNF: [facility] Heart Rate 74 {beats}/min 04/01/2018 SNF: [facility] Respitory Rate 18 03/31/2018 SNF: [facility] Systolic (mm Hg) 122 03/31/2018 SNF: [facility] Diastolic (mm Hg) 76 03/31/2018 SNF: [facility] Temperature Oral (F) 97.4 F 03/31/2018 SNF: [facility] Heart Rate 76 {beats}/min 03/31/2018 SNF: [facility] Respitory Rate 16 03/31/2018 SNF: [facility] Systolic (mm Hg) 110 03/31/2018 SNF: [facility] Diastolic (mm Hg) 75 03/31/2018 SNF: [facility] Temperature Oral (F) 97.5 F 03/31/2018 SNF: [facility] Heart Rate 74 {beats}/min 03/31/2018 SNF: [facility] Respitory Rate 16 03/31/2018 SNF: [facility] Systolic (mm Hg) 110 03/31/2018 SNF: [facility] Diastolic (mm Hg) 75 03/31/2018 SNF: [facility] Temperature Oral (F) 97.5 F 03/31/2018 SNF: [facility] Heart Rate 78 {beats}/min 03/31/2018 SNF: [facility] Respitory Rate 18 03/30/2018 SNF: [facility] Systolic (mm Hg) 148 03/30/2018 SN[facility]: [facility] Diastolic (mm Hg) 74 03/30/2018 SNF: [facility] Temperature Oral (F) 97.6 F 03/30/2018 SNF: [facility] Heart Rate 77 {beats}/min 03/30/2018 [facility]: [facility] Respitory Rate 18 03/29/2018 SNF: [facility] Systolic (mm Hg) 150 03/29/2018 SNF: [facility] Diastolic (mm Hg) 82 03/29/2018 SNF: [facility] Temperature Oral (F) 98 F 03/29/2018 SNF: [facility] Heart Rate 74 {beats}/min 03/29/2018 [facility]: [facility] Respitory Rate 20 03/29/2018 SN[facility]: [facility] Systolic (mm Hg) 144 03/29/2018 SNF: [facility] Diastolic (mm Hg) 75 03/29/2018 SNF: [facility] Temperature Oral (F) 98.2 F 03/29/2018 [facility] Heart Rate 80 {beats}/min 03/29/2018 [facility] Weight 189 03/28/2018 SNF: [facility] Height 67 03/28/2018 SNF: [facility] Respitory Rate 20 03/28/2018 SNF: [facility] Systolic (mm Hg) 139 03/28/2018 SNF: [facility] Diastolic (mm Hg) 62 03/28/2018 SNF: [facility] Temperature Oral (F) 98.3 F 03/28/2018 SNF: [facility] Heart Rate 82 {beats}/min 03/28/2018 SNF: [facility] Respitory Rate 20 03/28/2018 SN[facility]: [facility] Systolic (mm Hg) 129 03/28/2018 SNF: [facility] Diastolic (mm Hg) 85 03/28/2018 SNF: [facility] Temperature Oral (F) 98.6 F 03/28/2018 SNF: [facility] Heart Rate 84 {beats}/min 03/28/2018 SNF: [facility] Encounters Location Location Details Encounter Type Encounter Number Reason For Visit Attending Provider ADM Date DC Date Status Source Procedures Procedure Code Date Perfomer Comments Source
[2018-05-03] MEDS ORDERED: ASPIRIN 81 MG CHEW TAB PO ONE (22:15)
[2018-05-03] MEDS ORDERED: CLONIDINE HCL 0.1 MG TAB PO ONE (22:30)
[2018-05-03] MEDS ORDERED: NITROGLYCERIN 2% OINT 1 GM PKT TOP ONE (22:30)
--- NOTE | 2018-05-03 22:51 | Diagnostic Imaging Report ---
EXAMINATION: CHEST SINGLE (NOT PORTABLE) INDICATION: ^ERMD ORDER ^[id number] ^2225 ^Y COMPARISON: 03/20/2018 FINDINGS: AP view TUBES and LINES: None. LUNGS: Lungs are well inflated. Lungs are clear. There is no evidence of pneumonia or pulmonary edema. PLEURA: No pleural effusion or pneumothorax. HEART AND MEDIASTINUM: The cardiac silhouette is enlarged. BONES AND SOFT TISSUES: No acute osseous lesion. Soft tissues are unremarkable. UPPER ABDOMEN: No free air under the diaphragm. IMPRESSION: No acute thoracic abnormality. Enlarged cardiac silhouette. Signed by: Dr. Chas Hadry MD on 05/03/2018 10:48 PM
[2018-05-03] MEDS ORDERED: HYDRALAZINE HCL25 MG PO (23:22)
[2018-05-03 23:23] LABS: BASOPHILS % 0.2 % (0.0-1.0); EOSINOPHILS # (AUTO) 0.1 (0.0-0.4); EOSINOPHILS % 0.9 % (0.0-6.0); HEMATOCRIT 35.4 % (38.2-49.6); HEMOGLOBIN 11.4 g/dL (14.0-18.0); LYMPHOCYTES # (AUTO) 1.9 (1.0-3.2); LYMPHOCYTES % 21.5 % (18.0-39.1); MEAN CORPUSCULAR HEMOGLOBIN 28.9 pg (28-32); MEAN CORPUSCULAR HGB CONC 32.2 g/dL (31-35); MEAN CORPUSCULAR VOLUME 89.6 fL (81-99); MONOCYTES # (AUTO) 0.7 (0.2-0.8); MONOCYTES % 7.7 % (4.4-11.3); NEUTROPHILS # (AUTO) 6.3 (2.1-6.9); NEUTROPHILS % 69.4 % (38.7-80.0); PLATELET COUNT 316 x10e3/uL (140-360); RED BLOOD COUNT 3.95 x10e6/uL (4.3-5.7); RED CELL DISTRIBUTION WIDTH 15.9 % (11.7-14.4)
[2018-05-03 23:33] LABS: PARTIAL THROMBOPLASTIN TIME 76.2 seconds (23.8-35.5)
[2018-05-03 23:42] LABS: INR 5.68; PROTHROMBIN TIME 54.8 seconds (11.9-14.5)
[2018-05-03 23:44] LABS: ALBUMIN 3.3 g/dL (3.5-5.0); ANION GAP 15.6 mmol/L (8-16); CALCIUM 10.4 mg/dL (8.4-10.2); CREATININE, SERUM 1.91 mg/dL (0.72-1.25); MAGNESIUM 1.4 MG/DL (1.3-2.1); POTASSIUM 4.6 mmol/L (3.5-5.1)
[2018-05-03 23:52] LABS: CREATINE KINASE MB 1.5 ng/mL (0-5.0)
[2018-05-04] VITALS (8 sets, daily range): BP systolic 103–206; BP diastolic 54–89
[2018-05-04 00:32] LABS: BILIRUBIN,URINE NEGATIVE (NEGATIVE); CLARITY,URINE CLEAR (CLEAR); COLOR,URINE YELLOW (YELLOW); KETONES,URINE NEGATIVE (NEGATIVE); LEUKOCYTE ESTERASE ,URINE 1+ (NEGATIVE); NITRITE,URINE NEGATIVE (NEGATIVE); PROTEIN,URINE DIPSTICK TRACE (NEGATIVE); URINE UROBILINOGEN 0.2 mg/dL (0.2 - 1)
[2018-05-04 00:37] LABS: BACTERIA,URINE FEW /HPF; EPITHELIAL CELLS,URINE RARE /LPF; RBC,URINE 0-5 /HPF (0-5); WBC,URINE (MAN) 21-50 /HPF (0-5)
[2018-05-04] MEDS ORDERED: ONDANSETRON HCL INJ 2MG/ML 2ML 2 MG/ML VIAL IV PRN (01:45)
[2018-05-04] MEDS ORDERED: FUROSEMIDE INJ 10 MG/ML 4 ML VIAL IV ONE (01:45)
[2018-05-04] MEDS ORDERED: CEFTRIAXONE SOD 1 GM/NS 50 ML 50 ML IV SCH (01:45)
--- OUTSIDE RECORDS SUMMARY | 2018-05-04 01:59 | XMS REPORT | Clinical Summary ---
Author Author DEVIN [facility] Address Unknown Phone Unavailable Care Team Providers Care Branch Lending Officer Name Role Phone Bam Mccarthy PCP Allergies [...] post kidney transplant 06/01/2013 Overview: ICD9 DX Outside Cutter L ast Assessment & Plan: Graft function [...] Type Area Manufactur er 09/06/2016 4301- / [id number] Adhesion Barrier,Seprafilm 5x6 - Cement/Wong N/A: Abdomen GENZYME [id number] ler/Adhesi SURGICAL Implanted: Qty: 2 on 07/06/2014 by [employer] Amrit Elam MD 02/06/2017 4301- [id number] Adhesion Barrier,Seprafilm 5x6 - Cement/Wong N/A: Abdomen GENZYME [id number] ler/Adhesi SURGICAL Implanted: Qty: 1 on 01/31/2015 by [employer] Amrit Trimble MD [id number] / / Stent,Uret Polaris 5fr X 10cm - Uro Stent [place] [id number] SCIENTIFIC Implanted: Qty: 1 on 05/24/2013 03/09/2016 [id number] / / [id number] Stent,Uret Polaris 5fr X 10cm - Uro Stent Right: Ureter [place] [id number] SCIENTIFIC Implanted: Qty: 1 on 01/21/2014 by Baljit Larson MD Results Not on fileafter 05/03/2017 Insurance Payer Benefit Subscriber ID Type Phone Address Plan / Group TEXANPLUS TEXANPLUS xxxxxxxxx [facility] Cont[facility] Advance Directives For more information, please contact: [facility] [address] [place] [id number] Date Inactivated Comments Code Status Date [...]
[2018-05-04] MEDS ORDERED: HYDRALAZINE HCL 20 MG/ML VIAL IV PRN (03:00)
--- NOTE | 2018-05-04 03:45 | NUR ---
Received patient from ER, Patient is alert and oriented x3, patient is on room air, patient denies pain now, patient has unstageable wound in the left leg plantar, wound care consult placed, patient received hydralazine iv for elevated bp, patient, patient offered a bed and orientated to the hospital protocol and surroundings, patient was made aware of the importance of calling for help using the call light and patient verbalized understanding. patient condition throughout the night was stable.
[2018-05-04] MEDS ORDERED: NITROGLYCERIN 2% OINT 1 GM PKT TOP SCH (06:00)
--- NOTE | 2018-05-04 06:45 | NUR ---
Report given to day nurse(Tod) for continuity of care.
[2018-05-04] MEDS ORDERED: DEXTROSE 50% SYRINGE 50 ML IV ONE (08:01)
[2018-05-04 09:00] LABS: CREATINE KINASE MB 1.5 ng/mL (0-5.0)
[2018-05-04] MEDS ORDERED: FUROSEMIDE INJ 10 MG/ML 4 ML VIAL IV SCH (09:00)
--- NOTE | 2018-05-04 09:43 | NUR ---
Pt received resting in bed. Alert and oriented x4 but Legally blind. Oriented to staff and surroundings, encouraged to press call cobos if help needed. All meds given as ordered. Emotional support given. Fall precautions maintained. Will monitor
[2018-05-04] MEDS ORDERED: DIPHENHYDRAMINE HCL 25 MG CAP PO PRN (11:30)
[2018-05-04] MEDS ORDERED: OXYCODONE/ACETAMINOPHEN 5-325 1 EACH TABLET PO PRN ×2 (11:30→15:00)
[2018-05-04] MEDS ORDERED: TACROLIMUS 1 MG CAP PO SCH ×2 (11:45→17:00)
[2018-05-04] MEDS ORDERED: ISOSORBIDE MONONITRATE 30 MG TAB CR PO SCH (11:45)
[2018-05-04] MEDS ORDERED: DEXTROSE 50% SYRINGE 50 ML IV PRN (11:45)
[2018-05-04] MEDS ORDERED: PREDNISONE 5 MG TAB PO SCH (11:45)
[2018-05-04] MEDS ORDERED: CALCITRIOL 0.25 MCG CAP PO SCH (12:00)
--- NOTE | 2018-05-04 12:31 | NUR ---
WOUND CARE CONSULTATION - INITIAL EVALUATION Patient admitted from Home to ER for Chest Pain, SOB, HTN, Renal Insufficiency, Fluid Volume Overload. HX: HTN, DM type 2 , CHF, CKD, DVT, ANEMIA, Kidney Transplant, TIA, Chronic UTI, Neuropathy, A-Fib. Right Foot DFU. - Patient being followed by Dr. Holly Lam outpatient for DFU of Right Foot. LABS: WBC9.04 HGB11.4 HCT35.4 NEUT%69.4 GLU90 ALB3.3 PATIENT VISIT: - Pleasant Male in bed and in good spirits. Previously followed By Dr. Holly Moran DPM, and Home Health Care for Wound Care. - Marcial Score 18 - Conservative PUP Active - Visco Mattress in Place - Right Foot presents with Open Ulcer 3.5c4x2.1 cm with Tunneling at 6 o'clock 3.2cm. Exposed bone. 90% granulation, 10% fibrotic tissue. Exposed bone at base of wound. Compared to last hospitalization, wound bed has improved very little. - Treatment at Home BID Dressing Changes - AM - Hydrogel , PM Santyl. - No other wounds identified. IMPRESSION: 1. Right Foot Plantar - Non-Healing DFU Grade 2- Very Slow Healing from Last Admission. RECOMMENDATION: Continue Current Treatment Plan per Dr. Dean Barrera DPM. 1. Right Foot- Plantar: - Cleanse wound with NS and 4x4 gauze Q12H Dressing Changes - AM: Hydrogel and Cover with ABD Pad and Secure with Kerlix and Tape. - PM - Santyl and Cover with ABD Pad and Secure with Kerlix and Tape. 2. Continue Use of Offloading Boot When OOB. 3. Encourage patient to turn and reposition q2h. DISCHARGE PLANNING: Home with Home Health. To Follow with Dr. Holly Moran DPM. Addendum: 05/04/18 at 1248 by Jarred Conner RN Amended: Links added.
[2018-05-04] MEDS: INSULIN LISPRO 100 UNIT/1 ML 3ML VIAL SQ SCH ×2 (12:33→16:25)
[2018-05-04] MEDS: HYDRALAZINE HCL 100 MG TABLET PO SCH ×2 (12:33→15:00)
[2018-05-04 12:48] LABS: INR 5.9; PROTHROMBIN TIME 56.4 seconds (11.9-14.5)
--- NOTE | 2018-05-04 14:31 | NUR ---
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 CM/SW role and care transitions discussed. Anticipated discharge plan discussed along with duration of care. CM/SW discussed patients right to make decisions in care. CM/SW work hours given. Patient lives: [address] HOME W SPOUSE Admit/Transfer: ER Hospital/ER visits since last admit: PT WAS DC'D 03/27/2018 POA/Emergency contact: LEE SMITH / Current/Previous Home Health: PT HAS HOME HEALTH, BUT DOES NOT REMEMBER THE NAME OF THE AGENCY. RECEIVES SN AND PT. PCP/Follow-up Care: DR. HESS Current/Previous DME: [facility] Other Services: NONE Employment Status: UNEMPLOYED Areas of Concerns: WOUND CARE Referral Needs: WOUND CARE TO [facility] Education Needs: NONE IMM/WHITAKER given and signed (if applicable): PT IS LEGALLY BLIND AND NOT ABLE TO SIGN IMM. NOT AT THE BEDSIDE. Goal for discharge: RETURN HOME W SPOUSE CM/SW left business card at the bedside with contact information. Name and number was also written on the patients whiteboard. Patient verbalized understanding of discussion. CM will follow-up with ongoing discharge and transition of care needs.
[2018-05-04] MEDS ORDERED: HYDRALAZINE HCL 25 MG TAB PO SCH (15:00)
[2018-05-04 16:50] LABS: CREATINE KINASE MB 1.6 ng/mL (0-5.0)
--- NOTE | 2018-05-04 16:55 | NUR ---
Pt and (Eryn) given discharge instructions regarding meds, diet, activities, restarting Coumadin on , and follow up with PCP. Both verbalized understanding of teaching. Left unit via wheelchair to 's car
[2018-05-05] MEDS ORDERED: MAGNESIUM OXIDE 400 MG TAB PO SCH (09:00)
[2018-05-05] MEDS ORDERED: POTASSIUM CHLORIDE 20 MEQ TAB CR PO SCH (09:00)
[2018-05-05] MEDS ORDERED: FERROUS SULFATE 325 MG TAB PO SCH (09:00)
[2018-05-05] MEDS ORDERED: PREDNISONE 5 MG TAB PO SCH (09:00)
--- NOTE | 2018-05-05 14:39 | Discharge Summary ---
The patient was placed on observation. PRIMARY CARE PHYSICIAN: Dr. Pranay Calderón. FINAL DIAGNOSES: Acute on chronic diastolic dysfunction, congestive heart failure, secondary to noncompliance to fluid and medications. SUMMARY: A 63 years old male came in with some chest pain and shortness of breath. X-ray otherwise unremarkable. The patient does have chronic kidney disease. He is drinking way too much fluid and became more congested. Otherwise stable. Lab was otherwise unremarkable. BUN and creatinine at the baseline. The patient is otherwise stable. INR is 5.6, supratherapeutic. The patient is on warfarin. Medication adjustment needed. The patient is otherwise stable. Discharged home. Restrict fluid. Decrease the glipizide to once a day instead of twice a day. Half of the warfarin and should restart on . The patient is otherwise stable. Discharged home today. Discussed with the patient at length. Continue with outpatient wound care to his diabetic foot ulcer. It is clean, is noninfected. MD JAYLA Holcomb/MARA /[id number]
[2018-05-05] MEDS ORDERED: COLLAGENASE OINTMENT 30 GM TUBE TP SCH (21:00)
== END 2018-05-04 16:52 | disposition home or self-care (01) ==
LOC: ER 22:01 → ERHOLD 05-04 01:56 → INTOOBSV 05-04 01:56 → MED/SURG3 05-04 03:16
PROVIDERS: ADMIT Internal Medicine; ATTEND Internal Medicine
DX: I13.0 Hypertensive heart and chronic kidney disease with heart failure and stage 1 through stage 4 chronic kidney disease, or unspecified chronic kidney disease (principal); I50.33 Acute on chronic diastolic (congestive) heart failure; E11.22 Type 2 diabetes mellitus with diabetic chronic kidney disease; N18.3 Chronic kidney disease, stage 3 (moderate); Z94.0 Kidney transplant status; I48.91 Unspecified atrial fibrillation; Z93.3 Colostomy status; Z98.0 Intestinal bypass and anastomosis status; Z86.718 Personal history of other venous thrombosis and embolism; D64.9 Anemia, unspecified; Z87.891 Personal history of nicotine dependence; Z82.49 Family history of ischemic heart disease and other diseases of the circulatory system; N30.00 Acute cystitis without hematuria; Z79.01 Long term (current) use of anticoagulants; T50.1X6A Underdosing of loop [high-ceiling] diuretics, initial encounter; E11.621 Type 2 diabetes mellitus with foot ulcer; Z79.84 Long term (current) use of oral hypoglycemic drugs; T45.515A Adverse effect of anticoagulants, initial encounter
CPT/HCPCS: 36415; 71045; 80053; 81001; 82550 ×2; 82553 ×2; 82948; 83735; 83880; 84484 ×2; 85025; 85379; 85610 ×2; 85730; 87086; 93005; 99284; G0378; J0360; J0696; J1940; J7507; J7512; J7799

== ENCOUNTER 2018-05-06 14:40 | Inpatient (IN) | payer MEDICARE ==
[~2018-05-06] VITALS: Ht 170.2 cm; Wt 84.5 kg
--- OUTSIDE RECORDS SUMMARY | 2018-05-06 14:44 | XMS REPORT | Clinical Summary ---
Author Author DEVIN [facility] Address Unknown Phone Unavailable Care Team Providers Care Mailroom Messenger Name Role Phone Bam Mccarthy PCP Allergies [...] post kidney transplant 06/01/2013 Overview: ICD9 DX Plant Operations Manager L ast Assessment & Plan: Graft [...] Type Area Manufactur er 09/06/2016 4301- / [id number] Adhesion Barrier,Seprafilm 5x6 - Cement/Wong N/A: Abdomen GENZYME [id number] ler/Adhesi SURGICAL Implanted: Qty: 2 on 07/06/2014 by [employer] Amrit Elam MD 02/06/2017 4301- [id number] Adhesion Barrier,Seprafilm 5x6 - Cement/Wong N/A: Abdomen GENZYME [id number] ler/Adhesi SURGICAL Implanted: Qty: 1 on 01/31/2015 by [employer] Amrit Trimble MD [id number] / / Stent,Uret Polaris 5fr X 10cm - Uro Stent [place] [id number] SCIENTIFIC Implanted: Qty: 1 on 05/24/2013 03/09/2016 [id number] / / [id number] Stent,Uret Polaris 5fr X 10cm - Uro Stent Right: Ureter [place] [id number] SCIENTIFIC Implanted: Qty: 1 on 01/21/2014 by Baljit Larson MD Results Not on fileafter 05/05/2017 Insurance Payer Benefit Subscriber ID Type Phone Address Plan / Group TEXANPLUS TEXANPLUS xxxxxxxxx [facility] Advance Directives For more information, please contact: [facility] [address] [place] [phone] Date Inactivated Comments Code Status Date [...]
[2018-05-06 16:20] LABS: BILIRUBIN,URINE NEGATIVE (NEGATIVE); CLARITY,URINE SL CLOUDY (CLEAR); COLOR,URINE YELLOW (YELLOW); KETONES,URINE NEGATIVE (NEGATIVE); LEUKOCYTE ESTERASE ,URINE TRACE (NEGATIVE); NITRITE,URINE NEGATIVE (NEGATIVE); PROTEIN,URINE DIPSTICK TRACE (NEGATIVE); URINE UROBILINOGEN 0.2 mg/dL (0.2 - 1)
[2018-05-06 16:29] LABS: EPITHELIAL CELLS,URINE FEW /LPF
[2018-05-06] MEDS ORDERED: VANCOMYCIN 1GM/NS 250 ML 250 ML IV ONE (17:00)
--- OUTSIDE RECORDS SUMMARY | 2018-05-06 17:47 | XMS REPORT | Clinical Summary ---
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 Scrap Salvager L ast Assessment & Plan: Graft function [...] Type Area Manufactur er 09/06/2016 4301- / [id number] Adhesion Barrier,Seprafilm 5x6 - Cement/Wong N/A: Abdomen GENZYME [id number] ler/Adhesi SURGICAL Implanted: Qty: 2 on 07/06/2014 by [employer] Amrit Elam MD 02/06/2017 4301- [id number] Adhesion Barrier,Seprafilm 5x6 - Cement/Wong N/A: Abdomen GENZYME [id number] ler/Adhesi SURGICAL Implanted: Qty: 1 on 01/31/2015 by [employer] Amrit Trimble MD [id number] / / Stent,Uret Polaris 5fr X 10cm - Uro Stent [place] [id number] SCIENTIFIC Implanted: Qty: 1 on 05/24/2013 03/09/2016 [id number] / / [id number] Stent,Uret Polaris 5fr X 10cm - Uro Stent Right: Ureter [place] [id number] SCIENTIFIC Implanted: Qty: 1 on 01/21/2014 by Baljit Larson MD Results Not on fileafter 05/05/2017 Insurance Payer Benefit Subscriber ID Type Phone Address Plan / Group TEXANPLUS TEXANPLUS xxxxxxxxx [facility] Cont[facility] Advance Directives For more information, please contact: [facility] [address] [place] [phone] Date Inactivated Comments Code Status Date [...]
[2018-05-06] MEDS: CEFEPIME 1GM/NS 0.9% 50 ML 50 ML IV SCH (17:57)
[2018-05-06] MEDS ORDERED: METOPROLOL TARTRATE INJ 1 MG/ML VIAL IV ONE (18:00)
--- NOTE | 2018-05-06 18:30 | Diagnostic Imaging Report ---
ADDENDUM #1 Addendum: Given the deformity of the tarsal bones, cannot exclude subacute fracture. Correlate with regional pain and consider follow-up x-ray in 2 weeks. Signed by: Dr. Adriana Fu M.D. on 05/06/2018 6:31 PM ORIGINAL REPORT RIGHT FOOT X-RAY - 3 VIEWS HISTORY: ^diabetic foot ^[id number] ^1720 COMPARISON: None available. FINDINGS: Bones: Mild deformity of the tarsal bones may be due to Charcot joint. Osseous alignment is within normal limits. Joints: The joint spaces are well-maintained. Soft tissues: Diffuse vascular calcifications. 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 Signed by: Dr. Adriana Fu M.D. on 05/06/2018 6:26 PM
[2018-05-06 19:06] LABS: ALBUMIN 3.3 g/dL (3.5-5.0); ANION GAP 17.6 mmol/L (8-16); CALCIUM 9.9 mg/dL (8.4-10.2); CREATININE, SERUM 1.93 mg/dL (0.72-1.25); POTASSIUM 3.6 mmol/L (3.5-5.1)
[2018-05-06] MEDS ORDERED: CALCIUM GLUCONATE 10% INJ 0.465 MEQ/ML VIAL ONE (19:12)
--- NOTE | 2018-05-06 19:30 | NUR ---
REPORT RECEIVED FROM CHANEL FRIEDMAN
[2018-05-06] MEDS ORDERED: HYDROCODONE/APAP 10MG-325MG TAB PO PRN (20:15)
[2018-05-06] MEDS ORDERED: VANCOMYCIN 1GM/NS 250 ML 250 ML ONE (20:49)
--- NOTE | 2018-05-06 21:00 | NUR ---
Admitted to unit. Oriented to environment and call light within reach. No issues or concerns at this time. at bedside.
--- NOTE | 2018-05-06 21:13 | NUR ---
2100 REPORT GIVEN TO CHANEL STERN ON OBS UNIT. PT MEDICATED WITH NORCO AND VANCOMYCIN PER ORDERS PRIOR TO DEPARTURE. AWAKE ALERT SKIN W/D RESP NONLAB. NAD NOTD.
[2018-05-06 21:15] VITALS: BP 193/67
[2018-05-06 21:46] LABS: BASOPHILS % 0.2 % (0.0-1.0); EOSINOPHILS % 0.2 % (0.0-6.0); HEMOGLOBIN 11.2 g/dL (14.0-18.0); LYMPHOCYTES % 4.3 % (18.0-39.1); MEAN CORPUSCULAR HEMOGLOBIN 29.5 pg (28-32); MEAN CORPUSCULAR HGB CONC 32.9 g/dL (31-35); MEAN CORPUSCULAR VOLUME 89.5 fL (81-99); MONOCYTES # (AUTO) 1.2 (0.2-0.8); MONOCYTES % 5.4 % (4.4-11.3); NEUTROPHILS # (AUTO) 19.8 (2.1-6.9); NEUTROPHILS % 88.9 % (38.7-80.0); PLATELET COUNT 317 x10e3/uL (140-360); RED CELL DISTRIBUTION WIDTH 16.3 % (11.7-14.4)
[2018-05-06 22:30] VITALS: BP 193/67
--- NOTE | 2018-05-06 22:35 | NUR ---
Left message for Dr Herbert: lab alert WBC 22.26 ( last WBC 9.4 05/03) one dose of van 1gm and getting cefepime 1gm Q 24hrs. Awaiting call back
--- NOTE | 2018-05-06 22:40 | NUR ---
Return call from Dr Herbert: Notified of WBC 22.26 Had one dose vanc 1 gm. Cefepime 1 gm Q 24 hrs. Resume all home meds except diabetic meds and put on low dose reg insulin sliding scale ACHS.
[2018-05-06 22:41] VITALS: BP 193/67
[2018-05-06] MEDS: HYDRALAZINE HCL 25 MG TAB PO SCH (22:44)
[2018-05-06] MEDS: TACROLIMUS 1 MG CAP PO SCH (22:45)
[2018-05-06] MEDS: CALCITRIOL 0.25 MCG CAP PO SCH (22:45)
[2018-05-06] MEDS ORDERED: DEXTROSE 50% SYRINGE 50 ML IV PRN (23:00)
[2018-05-06 23:59] VITALS: BP 142/58
[2018-05-07] VITALS (7 sets, daily range): BP systolic 130–173; BP diastolic 62–78
[2018-05-07] MEDS ORDERED: LATANOPROST2.5 ML OP (00:40)
[2018-05-07] MEDS ORDERED: AMERIGEL WOUN28.3 GM TOP (00:40)
[2018-05-07] MEDS ORDERED: santyl TOP (00:40)
[2018-05-07] MEDS ORDERED: COMBIGAN EYE DRO5 ML OP (00:40)
--- NOTE | 2018-05-07 02:00 | NUR ---
Resting in bed, eyes closed, resp even and unlabored. Call light within reach. at bedside. Will continue to monitor.
[2018-05-07] MEDS: OXYCODONE/ACETAMINOPHEN 5-325 1 EACH TABLET PO PRN ×2 (04:20→20:06)
--- NOTE | 2018-05-07 04:20 | NUR ---
BP 173/70, 82, Reports having pain 6/10. Med for pain PRN. Will continue to monitor.
[2018-05-07 05:29] LABS: BASOPHILS % 0.2 % (0.0-1.0); EOSINOPHILS % 0.2 % (0.0-6.0); HEMATOCRIT 29.1 % (38.2-49.6); HEMOGLOBIN 9.5 g/dL (14.0-18.0); LYMPHOCYTES # (AUTO) 1.7 (1.0-3.2); LYMPHOCYTES % 8.8 % (18.0-39.1); MEAN CORPUSCULAR HGB CONC 32.6 g/dL (31-35); MEAN CORPUSCULAR VOLUME 88.7 fL (81-99); MONOCYTES # (AUTO) 1.2 (0.2-0.8); MONOCYTES % 6.2 % (4.4-11.3); NEUTROPHILS # (AUTO) 15.8 (2.1-6.9); NEUTROPHILS % 83.8 % (38.7-80.0); PLATELET COUNT 241 x10e3/uL (140-360); RED BLOOD COUNT 3.28 x10e6/uL (4.3-5.7); RED CELL DISTRIBUTION WIDTH 16.1 % (11.7-14.4)
[2018-05-07 05:44] LABS: INR 4.25
[2018-05-07 05:48] LABS: PROTHROMBIN TIME 42.9 seconds (11.9-14.5)
--- NOTE | 2018-05-07 06:00 | NUR ---
Resting in bed. Resp even and unlabored. Call light within reach. at bedside.Will continue to monitor
[2018-05-07 06:08] LABS: ALBUMIN 2.5 g/dL (3.5-5.0); ALBUMIN/GLOBULIN RATIO 0.9 (0.8-2.0); ANION GAP 12.4 mmol/L (8-16); CALCIUM 8.9 mg/dL (8.4-10.2); CREATININE, SERUM 1.96 mg/dL (0.72-1.25); POTASSIUM 3.4 mmol/L (3.5-5.1)
--- NOTE | 2018-05-07 06:13 | NUR ---
Dr Herbert notified of lab alert PT 42.9. D/C ER restarted coumadin. Order: D/C coumadin
[2018-05-07] MEDS: INSULIN REGULAR, HUMAN 100 UNIT/1 ML 3ML VIAL SQ SCH ×4 (07:30→20:10)
[2018-05-07] MEDS ORDERED: WARFARIN SOD 1 MG TAB PO SCH (09:00)
[2018-05-07] MEDS: FERROUS SULFATE 325 MG TAB PO SCH (09:10)
[2018-05-07] MEDS: HYDRALAZINE HCL 25 MG TAB PO SCH ×3 (09:10→20:05)
[2018-05-07] MEDS: BRIMONIDINE/TIMOLOL (OPTH SOLN 5 ML DRPETTE OP SCH (09:10)
[2018-05-07] MEDS: POTASSIUM CHLORIDE 20 MEQ TAB CR PO SCH (09:11)
[2018-05-07] MEDS: TACROLIMUS 1 MG CAP PO SCH ×2 (09:11→16:24)
[2018-05-07] MEDS: MAGNESIUM OXIDE 400 MG TAB PO SCH (09:11)
[2018-05-07] MEDS: FUROSEMIDE 40 MG TAB PO SCH ×2 (09:11→16:24)
[2018-05-07] MEDS: PREDNISONE 5 MG TAB PO SCH (09:11)
[2018-05-07] MEDS: CADEXOMER IODINE 30 GM TUBE TOP SCH (10:00)
--- NOTE | 2018-05-07 12:38 | Consultation ---
DATE OF CONSULTATION: 05/07/2018 REASON FOR CONSULTATION: Nonhealing ulceration with the patient being diabetic with Charcot foot to the right foot. HISTORY OF PRESENT ILLNESS: This is a pleasant 63-year-old white male who is very well known to me, who was admitted secondary to cellulitis to the right lower extremity. He has a grade 3 ulceration on the plantar aspect of the right foot, tracking down to plantar fascia and very close to bone. The patient was relating some chills. Denies any history of fever, chills, nausea, or vomiting since he has been in the hospital, getting IV antibiotics. PAST MEDICAL HISTORY: Remarkable for insulin-dependent diabetes, hypertension, and Charcot foot. PAST SURGICAL HISTORY: The patient denies. SOCIAL HISTORY: Denies any drinking, smoking, or recreational drug use. CURRENT MEDICATIONS: Note listed in the chart including IV cefepime. FAMILY HISTORY: Remarkable for diabetes. REVIEW OF SYSTEMS: CARDIAC: Denies any palpitations or arrhythmias. RESPIRATORY: Denies any shortness of breath or productive cough. GASTROINTESTINAL: Denies any diarrhea or constipation. PHYSICAL EXAMINATION: VITAL SIGNS: Afebrile, pulse rate 76, respirations 14, blood pressure 130/71, and O2 saturation 98%. PODIATRIC: Reveals vasculature, pedal pulses both DP and PT are palpable. CFT to all toes less than 3 seconds. NEUROLOGIC: Reveals complete loss of protective sensation when we utilize a Newell-Jose 5.07 monofilament wire. Muscle mass is asymmetrical, some swelling and edema noted to the right foot when compared to the left. DERMATOLOGIC: Reveals a grade 3 ulceration measuring more than 3.5 cm in diameter mid-arch region of the right foot with edema to the midtarsal joint area with minimal to no foul smell. ASSESSMENT: Grade 3 ulcer, cellulitis, Charcot foot with possible osteo. PLAN: X-ray report was evaluated, no gas in the tissue. We will start Santyl followed by diluted wet-to-dry Betadine in the evening, Iodosorb followed by dry dressing in the morning. Continue IV antibiotics. Continue offloading. MELANIA Taylor/MARA /[id number]
[2018-05-07] MEDS: LINEZOLID 600 MG/D5W 300ML 300 ML IV SCH (14:44)
--- NOTE | 2018-05-07 15:43 | NUR ---
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 CM/SW role and care transitions discussed. Anticipated discharge plan discussed along with duration of care. CM/SW discussed patients right to make decisions in care. CM/SW work hours given. Patient lives: IN HOUSE WITH FAMILY Admit/Transfer: VIA ED POA/Emergency contact: LEE [phone] Current/Previous Home Health: [facility] PCP/Follow-up Care: JIMENA Current/Previous DME: [facility] Other Services: NONE Employment Status: DISABLED Areas of Concerns: NONE Referral Needs: NONE Education Needs: NONE IMM/WHITAKER given and signed (if applicable): UPON DISCHARGE Goal for discharge: RETURN HOME CM/SW left business card at the bedside with contact information. Name and number was also written on the patients whiteboard. Patient verbalized understanding of discussion. CM will follow-up with ongoing discharge and transition of care needs.
[2018-05-07] MEDS: CEFEPIME 1GM/NS 0.9% 50 ML 50 ML IV SCH (16:24)
--- NOTE | 2018-05-07 16:25 | NUR ---
WOUND CARE CONSULTATION - INITIAL EVALUATION Patient admitted to ER for Diabetic Foot Ulcers. - Dr. Holly Moran on Case for foot ulcers. Deferred assessment at his request. - Dr. Hinojosa on case for Infectious Diseases Wound Care Consulted for concerns for possible Stage I Sacral Wound. WBC18.89 HGB9.5 HCT29.1 NEUT%83.8 PT42.9 INR4.25 YHG240 Alb2.5 PATIENT VISIT: - Pleasant 63 y/o male in bed sleeping on his right side. - Able to turn self - Marcial Score 18 - Deferred assessment to Bilateral Feet as Dr. Holly Lam DPM already managing care. - Sacral area - No pressure ulcers identified. Normal Skin Color and Skin Intact. No Redness, Denies discomfort to site. RECOMMENDATION: Continue Current Treatment Plan. Will return if needed/ Re-consulted. Thank you for consulting with Wound Care. Addendum: 05/07/18 at 1635 by Jarred Conner RN -- Marcial Score 18 -- Conservative PUP Active Addendum: 05/07/18 at 1635 by Jarred Conner RN Amended: Links added.
[2018-05-07] MEDS ORDERED: WARFARIN SOD 2 MG TAB PO SCH (17:00)
[2018-05-07] MEDS: DIPHENHYDRAMINE HCL 25 MG CAP PO PRN (18:05)
[2018-05-07] MEDS: ONDANSETRON HCL INJ 2MG/ML 2ML 2 MG/ML VIAL IV PRN ×2 (18:11→20:06)
--- NOTE | 2018-05-07 19:00 | NUR ---
Received patient from day nurse, patient is alert and oriented x 4, patient is on room air, introduced self to patient and patient encouraged to call for help with the call light, at the bed side, bed alarm activated, belongings close to patient, patient is currently stable will continue to monitor.
[2018-05-07] MEDS: LATANOPROST(OPTH) 2.5 ML BTL OP SCH (20:18)
--- NOTE | 2018-05-07 21:04 | Consultation ---
DATE OF CONSULTATION: REASON FOR CONSULTATION: Cellulitis of the foot. HISTORY OF PRESENT ILLNESS: This patient who is very well-known to me, 63-year-old white male who has history of end-stage renal disease, who had a renal transplant, history of diabetes mellitus, history of severe neuropathy, hypertension, who has a diabetic foot ulcer on his right foot, the patient was here recently where he was diagnosed with infection. He was discharged to skilled care with IV antibiotic and wound care. He did well and he was discharged home. He was there for a few days. He is coming back with worsening pain and redness in the foot. The patient went to the Emergency Room and once he was given oral antibiotic without any improvement and he came to my office complaining of severe pain, so the patient is being admitted through the Emergency Room. When he first came, his white count was 22.26, hemoglobin 11.2, hematocrit 34. Sodium 129, creatinine 1.93. MEDICATIONS: He is on insulin, , Prograf, prednisone, Lasix, Percocet. He was started on cefepime. He received a dose of vancomycin. The patient was currently lying in bed, comfortable, but complaining of pain. He was here on January 05, 2018, as well as February. The patient has a history of atrial fibrillation, on anticoagulation; history of chronic kidney disease. The patient has kidney transplant, hypertension, hyperlipidemia, diabetes mellitus type 2, atrial fibrillation, and depression. PAST SURGICAL HISTORY: Renal transplant and debridement of his feet before. ALLERGIES: NKA. SOCIAL HISTORY: There is no smoking, drug abuse, or alcohol abuse. FAMILY HISTORY: Hypertension. Otherwise, unremarkable. REVIEW OF SYSTEMS: At the present time, mainly he is complaining of severe pain in his foot and his leg. PAST MEDICAL HISTORY: As above. PHYSICAL EXAMINATION: GENERAL: He is currently alert and oriented, does not seem to be in acute distress. VITAL SIGNS: Stable. Currently afebrile. HEENT: Not pale or icteric. NECK: Supple. No JVD. No lymphadenopathy. No thyromegaly. CHEST: Clear bilateral. HEART: S1, S2. murmur. ABDOMEN: Soft, obese. No tenderness. No hepatosplenomegaly. EXTREMITIES: The right foot, there is some erythema, edema. There is an ulcer about 2 x 2 cm in the plantar aspect of his foot, no drainage, it has good granulation. IMPRESSION: 1. Cellulitis of the foot. 2. Severe Charcot joint. 3. Concerned about infection. We will obtain indium scan chronic kidney disease. We will put him on cefepime and Zyvox. 4. concerned about this leukocytosis. We will check CBC. We will check Chem panel. Further recommendations to follow. The patient just finished 2 weeks of IV antibiotic recently, which makes him risk for MDR if he has an infection. We will follow with you. MD AMI Toney/MARA /[id number]
[2018-05-08] VITALS (7 sets, daily range): BP systolic 139–189; BP diastolic 65–79
[2018-05-08] MEDS: LINEZOLID 600 MG/D5W 300ML 300 ML IV SCH ×2 (02:38→14:20)
[2018-05-08] MEDS: ONDANSETRON HCL INJ 2MG/ML 2ML 2 MG/ML VIAL IV PRN ×2 (05:12→18:23)
[2018-05-08] MEDS: OXYCODONE/ACETAMINOPHEN 5-325 1 EACH TABLET PO PRN ×3 (05:13→21:54)
--- NOTE | 2018-05-08 05:36 | NUR ---
05/07/18 @1999 patient rounded and stable 2200: patient rounded and stable 03.1.19 @0200: patient rounded and stable 0400: patient rounded and stable 0600: patient rounded and stable.
[2018-05-08 05:56] LABS: BASOPHILS % 0.1 % (0.0-1.0); EOSINOPHILS # (AUTO) 0.1 (0.0-0.4); EOSINOPHILS % 0.5 % (0.0-6.0); HEMATOCRIT 31.5 % (38.2-49.6); HEMOGLOBIN 10.3 g/dL (14.0-18.0); LYMPHOCYTES # (AUTO) 1.8 (1.0-3.2); LYMPHOCYTES % 11.9 % (18.0-39.1); MEAN CORPUSCULAR HEMOGLOBIN 29.3 pg (28-32); MEAN CORPUSCULAR HGB CONC 32.7 g/dL (31-35); MEAN CORPUSCULAR VOLUME 89.5 fL (81-99); MONOCYTES # (AUTO) 1.1 (0.2-0.8); MONOCYTES % 7.2 % (4.4-11.3); NEUTROPHILS # (AUTO) 11.8 (2.1-6.9); NEUTROPHILS % 79.6 % (38.7-80.0); PLATELET COUNT 258 x10e3/uL (140-360); RED BLOOD COUNT 3.52 x10e6/uL (4.3-5.7); RED CELL DISTRIBUTION WIDTH 15.9 % (11.7-14.4)
[2018-05-08 06:15] LABS: ANION GAP 13.9 mmol/L (8-16); CALCIUM 9.3 mg/dL (8.4-10.2); CREATININE, SERUM 2.27 mg/dL (0.72-1.25); POTASSIUM 3.9 mmol/L (3.5-5.1)
[2018-05-08 06:31] LABS: INR 3.43; PROTHROMBIN TIME 36.4 seconds (11.9-14.5)
--- NOTE | 2018-05-08 07:25 | NUR ---
patient endorsed to next shift for continuity of care.
[2018-05-08] MEDS: INSULIN REGULAR, HUMAN 100 UNIT/1 ML 3ML VIAL SQ SCH ×4 (07:42→20:53)
[2018-05-08] MEDS: HYDRALAZINE HCL 25 MG TAB PO SCH ×3 (08:51→20:49)
[2018-05-08] MEDS: POTASSIUM CHLORIDE 20 MEQ TAB CR PO SCH (08:51)
[2018-05-08] MEDS: MAGNESIUM OXIDE 400 MG TAB PO SCH (08:51)
[2018-05-08] MEDS: PREDNISONE 5 MG TAB PO SCH (08:51)
[2018-05-08] MEDS: FERROUS SULFATE 325 MG TAB PO SCH (08:51)
[2018-05-08] MEDS: FUROSEMIDE 40 MG TAB PO SCH ×2 (08:51→18:23)
[2018-05-08] MEDS: TACROLIMUS 1 MG CAP PO SCH ×2 (08:52→18:23)
[2018-05-08] MEDS: BRIMONIDINE/TIMOLOL (OPTH SOLN 5 ML DRPETTE OP SCH (08:52)
[2018-05-08] MEDS: CALCITRIOL 0.25 MCG CAP PO SCH (08:55)
[2018-05-08] MEDS: COLLAGENASE 5 GM TUBE TOP SCH (09:00)
--- NOTE | 2018-05-08 12:58 | Progress Note ---
DATE: 05/08/2018 SUBJECTIVE: The patient seen at beside, accompanied by spouse, doing better, decreased discomfort to the right lower extremity. OBJECTIVE: VITAL SIGNS: Afebrile, pulse rate 85, respirations 16, blood pressure 168/74, and O2 saturation 96%. EXTREMITIES: Ulceration to the right lower extremity getting better, measuring more or less 4 cm in diameter with tracking down to bone. LABORATORY DATA: White blood cell count of 14.8 dropping from 22, hemoglobin 10.3, hematocrit 31.5 with a platelet count of 258. ASSESSMENT: Possible osteomyelitis and Charcot foot with a grade 3 ulceration. PLAN: We will continue IV antibiotics. Continue local wound care. We will continue to follow. Continue walking strictly with the aid of a walking boot. Continue cefepime 1 g IV piggyback q.24 h. MELANIA Taylor/MARA /[id number]
--- NOTE | 2018-05-08 14:48 | NUR ---
Patient and family was concerned about dressing change orders, as order says its 1time a day, Paged Dr Willam Barrera new order recvd and its in system, patient aware about it
[2018-05-08] MEDS: CEFEPIME 1GM/NS 0.9% 50 ML 50 ML IV SCH (18:23)
--- NOTE | 2018-05-08 18:39 | NUR ---
patient resting in bed, no distress noted, denies any pain
--- NOTE | 2018-05-08 19:07 | NUR ---
Nutrition Screen Note RD Recommendation for Physician: -Continue ADA diet as ordered Plan of Care: RD following, monitoring for tolerance and adequacy Nutrition reason for involvement: Nutrition Risk Trigger - MST Primary Diagnose(s): Possible osteomyelitis and Charcot foot with a grade 3 ulceration. PMH: Diabetes mellitus with diabetic peripheral neuropathy, peripheral arterial disease, stage-3 kidney failure, s/p kidney transplant. Ht: 67in Wt: 182.56lb BMI: 28.6kg/m2 IBW: 148lb RD Assessment: (05/08) Chart reviewed. Labs and meds reviewed. 63yo M, who was admitted for diabetic foot ulcer. BG 180 200. HbA1c on 02/24 was 8.1%. Pt was well known to me from his previous admissions for similar complain. 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 Pt denied chewing/swallowing problems and nausea/vomiting. RN recorded 75-100% meal intake since admission. Will cont to monitor. Please consult as needed. Current Diet: ADA diet Malnutrition Evaluation (05/08) The patient does not meet criteria for a specified degree of malnutrition at this time. Will re-evaluate at follow-up as appropriate. Diet Education Needs Assessment: Diet education indicated, pt was not interested. Nutrition Care Level: low Signed: Suyapa Rose, MS, RD, LD
--- NOTE | 2018-05-08 19:45 | Diagnostic Imaging Report ---
Labeled WBC Study Reason for exam: 63 M with diabetic foot ulcers; Charcot joint right foot, now with increased pain, redness and swelling. Grade 3 ulceration on plantar aspect of right foot tracking to plantar fascia. Comparison: Report: The patient's own white blood cells were labeled with Tc-99m HMPAO 10.5 mCi by a commercial radiopharmacy. Images of the ankles and feet were obtained at 3 hours post administration of the labeled white blood cells. Focal increased tracer is seen on the plantar aspect of the right mid foot that tracks toward the middle of the foot although not entering bone. There are two foci of increased tracer activity within the talar bones of the right foot. The left foot and ankle are entirely unremarkable. IMPRESSION: Soft tissue ulcer on the plantar aspect of the right mid foot that tracks deep into soft tissue but does not reach bone, however, there are two foci of increased tracer accumulation within the talar bones that are very worrisome for osteomyelitis. These foci are more punctate and intense than would be seen with changes of Charcot joint. Signed by: Dr. Linda Dunn M.D. on 05/08/2018 7:42 PM
[2018-05-08] MEDS: LATANOPROST(OPTH) 2.5 ML BTL OP SCH (20:46)
[2018-05-08] MEDS: POVIDONE IODINE 10% 120 ML BTL EXT SCH (21:53)
[2018-05-08] MEDS: DIPHENHYDRAMINE HCL 25 MG CAP PO PRN (22:02)
[2018-05-09] VITALS (7 sets, daily range): BP systolic 148–187; BP diastolic 66–90
[2018-05-09] MEDS: LINEZOLID 600 MG/D5W 300ML 300 ML IV SCH ×2 (02:55→14:56)
--- NOTE | 2018-05-09 04:10 | NUR ---
Received patient from day nurse, patient is alert and oriented x 3, patient is on room air. introduced self to patient and patient made aware of the plans for the shift. safety and fall precautions maintained as per hospital protocol: bed in lowest position and locked, needed items beside bed and call cobos placed within patient reach, patient instructed to use it to call nurses for any assistance needed, patient verbalized understanding. patient is currently stable will continue to monitor, patient is legally blind and extra care and safety measures were maintained at all times, is also at the bed side,.2000: wound dressing done, patient rounded and stable. 2200: patient rounded and stable. 05/09/18: 0200: patient rounded and stable. 0400: patient rounded and stable.
--- NOTE | 2018-05-09 07:36 | NUR ---
patient endorsed to next shift for continuity of care.
[2018-05-09] MEDS: INSULIN REGULAR, HUMAN 100 UNIT/1 ML 3ML VIAL SQ SCH ×4 (08:17→20:50)
[2018-05-09] MEDS: BRIMONIDINE/TIMOLOL (OPTH SOLN 5 ML DRPETTE OP SCH (08:22)
[2018-05-09] MEDS: HYDRALAZINE HCL 25 MG TAB PO SCH ×3 (08:23→20:48)
[2018-05-09] MEDS: FERROUS SULFATE 325 MG TAB PO SCH (08:23)
[2018-05-09] MEDS: POTASSIUM CHLORIDE 20 MEQ TAB CR PO SCH (08:25)
[2018-05-09] MEDS: FUROSEMIDE 40 MG TAB PO SCH ×2 (08:25→16:22)
[2018-05-09] MEDS: MAGNESIUM OXIDE 400 MG TAB PO SCH (08:25)
[2018-05-09] MEDS: TACROLIMUS 1 MG CAP PO SCH ×2 (08:26→16:22)
[2018-05-09] MEDS: PREDNISONE 5 MG TAB PO SCH (08:26)
[2018-05-09] MEDS ORDERED: CADEXOMER IODINE 30 GM TUBE TOP SCH (09:00)
[2018-05-09] MEDS: COLLAGENASE 5 GM TUBE TOP SCH ×2 (09:00→20:42)
[2018-05-09] MEDS: CADEXOMER IODINE 30 GM TUBE TOP SCH (12:21)
[2018-05-09] MEDS: POVIDONE IODINE 10% 120 ML BTL EXT SCH (12:21)
[2018-05-09] MEDS: OXYCODONE/ACETAMINOPHEN 5-325 1 EACH TABLET PO PRN ×2 (12:27→22:30)
[2018-05-09] MEDS: CEFEPIME 1GM/NS 0.9% 50 ML 50 ML IV SCH (17:46)
--- NOTE | 2018-05-09 19:00 | NUR ---
Received report from previous nurse. Patient is in bed and at bedside. Call light with reach.
--- NOTE | 2018-05-09 19:04 | Progress Note ---
DATE: SUBJECTIVE: Mr. Rios is improving. There are no new complaints. His pain is better. PHYSICAL EXAMINATION: GENERAL: He is currently alert, oriented, does not seem to be in acute distress. VITAL SIGNS: Stable, currently afebrile. HEENT: He is not icteric. NECK: Supple. CHEST: Clear. HEART: S1 and S2 normal. ABDOMEN: Soft. Bowel sounds present. No tenderness. EXTREMITIES: On the foot, there is decreased erythema and edema on the right. Ulcer on the plantar aspect seems to be clean. LABORATORY DATA: Bone scan was positive for osteomyelitis. IMPRESSION: Infection, osteomyelitis of the foot in a patient with Charcot joint. Osteomyelitis with cellulitis, better. White count is coming down from 22.2 to 14.8. Chronic kidney disease, stable. Diabetes mellitus with neuropathy, status post renal transplant. We will recommend eight weeks of IV antibiotic and can switch linezolid to p.o. Continue with IV Zosyn. Would need a central line. We will follow. MD AMI Toney/MODL /[id number]
--- NOTE | 2018-05-09 19:09 | Progress Note ---
DATE: 05/09/2018 SUBJECTIVE: The patient seen at beside, accompanied by spouse, feeling somewhat better. He is denying any history of fever, chills, nausea, or vomiting. OBJECTIVE: VITAL SIGNS: Afebrile, pulse rate 65, respirations 18, blood pressure 173/90, and O2 saturation 94%. LABORATORY DATA: He has a white blood cell count of 14.8 and hemoglobin 10.3 with blood glucose of 228. Nuclear scan results were reviewed, consistent with possible osteomyelitis and Charcot deformity. He has a grade 3 ulceration tracking to plantar fascia, granulation tissue noted. ASSESSMENT: Grade 3 ulcer, osteomyelitis with Charcot foot. PLAN: We will continue IV antibiotics. Continue local wound care with Iodosorb gel in the morning and Santyl collagenase followed by diluted wet-to-dry Betadine in the evening. Strictly walking with the walking boot. We will continue to follow. MELANIA Taylor/MARA /[id number]
[2018-05-09] MEDS: LATANOPROST(OPTH) 2.5 ML BTL OP SCH (20:48)
[2018-05-09] MEDS: ONDANSETRON HCL INJ 2MG/ML 2ML 2 MG/ML VIAL IV PRN (21:14)
--- NOTE | 2018-05-09 22:30 | NUR ---
PATIENT REFUSED BED ALARM. CHARGE NURSE NOTIFIED. CALL LIGHT WITHIN REACH. AT BEDSIDE. DRESSING CHANGE DONE.
[2018-05-10] VITALS (8 sets, daily range): BP systolic 118–183; BP diastolic 58–85
[2018-05-10] MEDS: DIPHENHYDRAMINE HCL 25 MG CAP PO PRN ×2 (00:56→21:17)
[2018-05-10] MEDS: LINEZOLID 600 MG/D5W 300ML 300 ML IV SCH ×2 (02:37→13:45)
[2018-05-10] MEDS: OXYCODONE/ACETAMINOPHEN 5-325 1 EACH TABLET PO PRN ×3 (05:14→21:30)
[2018-05-10 06:25] LABS: BASOPHILS % 0.3 % (0.0-1.0); EOSINOPHILS # (AUTO) 0.2 (0.0-0.4); HEMATOCRIT 27.3 % (38.2-49.6); HEMOGLOBIN 8.8 g/dL (14.0-18.0); LYMPHOCYTES # (AUTO) 1.2 (1.0-3.2); LYMPHOCYTES % 15.5 % (18.0-39.1); MEAN CORPUSCULAR HEMOGLOBIN 29.2 pg (28-32); MEAN CORPUSCULAR HGB CONC 32.2 g/dL (31-35); MEAN CORPUSCULAR VOLUME 90.7 fL (81-99); MONOCYTES # (AUTO) 0.8 (0.2-0.8); MONOCYTES % 10.1 % (4.4-11.3); NEUTROPHILS # (AUTO) 5.6 (2.1-6.9); NEUTROPHILS % 71.2 % (38.7-80.0); PLATELET COUNT 233 x10e3/uL (140-360); RED BLOOD COUNT 3.01 x10e6/uL (4.3-5.7); RED CELL DISTRIBUTION WIDTH 15.8 % (11.7-14.4)
--- NOTE | 2018-05-10 07:03 | NUR ---
GAVE REPORT TO ONCOMING NURSE. PATIENT IN NO DISTRESS OR PAIN. CALL LIGHT WITHIN REACH.
[2018-05-10] MEDS: CADEXOMER IODINE 30 GM TUBE TOP SCH (07:47)
[2018-05-10] MEDS: POVIDONE IODINE 10% 120 ML BTL EXT SCH (07:47)
[2018-05-10] MEDS: INSULIN REGULAR, HUMAN 100 UNIT/1 ML 3ML VIAL SQ SCH ×4 (09:18→20:26)
[2018-05-10] MEDS: FERROUS SULFATE 325 MG TAB PO SCH (09:21)
[2018-05-10] MEDS: HYDRALAZINE HCL 25 MG TAB PO SCH ×3 (09:21→20:30)
[2018-05-10] MEDS: BRIMONIDINE/TIMOLOL (OPTH SOLN 5 ML DRPETTE OP SCH (09:21)
[2018-05-10] MEDS: POTASSIUM CHLORIDE 20 MEQ TAB CR PO SCH (09:23)
[2018-05-10] MEDS: TACROLIMUS 1 MG CAP PO SCH ×2 (09:23→17:04)
[2018-05-10] MEDS: MAGNESIUM OXIDE 400 MG TAB PO SCH (09:23)
[2018-05-10] MEDS: FUROSEMIDE 40 MG TAB PO SCH ×2 (09:23→17:04)
[2018-05-10] MEDS: PREDNISONE 5 MG TAB PO SCH (09:23)
[2018-05-10] MEDS: CEFEPIME 1GM/NS 0.9% 50 ML 50 ML IV SCH (17:04)
--- NOTE | 2018-05-10 19:00 | NUR ---
Report and rounds completed. Resting in bed. No issues or concerns. Call light within reach. Will Continue to monitor.
[2018-05-10] MEDS: LATANOPROST(OPTH) 2.5 ML BTL OP SCH (20:30)
[2018-05-10] MEDS: ONDANSETRON HCL INJ 2MG/ML 2ML 2 MG/ML VIAL IV PRN (21:14)
--- NOTE | 2018-05-10 22:00 | NUR ---
Resting in bed, resp even and unlabored. at bedside. No issues or concerns at this time. Call light within reach. Will continue to monitor.
--- NOTE | 2018-05-10 22:05 | NUR ---
Refusing midnight v/s. Unable to get adequate rest. Education provided on importance and verbalized understanding but would like some rest without being woke up.
--- NOTE | 2018-05-11 00:30 | Progress Note ---
DATE: 05/10/2018 SUBJECTIVE: The patient seen at beside, accompanied by spouse, no distress. Denies any history of fever, chills, nausea, or vomiting. OBJECTIVE: VITAL SIGNS: Afebrile, pulse rate 81, respirations 12, blood pressure 183/68, and O2 saturation 98%. LABORATORY DATA: Labs show white blood cell count dropping to 7.83, hemoglobin 8.8, hematocrit 27.3 with a platelet count of 233. Ulceration to the plantar aspect of right foot continues to improve, more than 3-4 cm in diameter, tracking down to plantar fascia very close to bone. ASSESSMENT: Grade 3 ulceration, Charcot foot with cellulitis. PLAN: We will continue IV antibiotics. Continue local wound care. Dressing changes b.i.d. Continue offloading. We will continue to follow. MELANIA Taylor/MARA /[id number]
[2018-05-11] MEDS: LINEZOLID 600 MG/D5W 300ML 300 ML IV SCH ×2 (01:54→16:30)
--- NOTE | 2018-05-11 02:00 | NUR ---
Resting in bed, at bedside. Call light within reach. No issues or concerns. Will continue to monitor.
[2018-05-11 04:00] VITALS: BP 147/75
--- NOTE | 2018-05-11 06:00 | NUR ---
Resting in bed, eyes closed resp even and unlabored. at bedside. Call light within reach. Will continue to monitor.
[2018-05-11 06:07] LABS: BASOPHILS % 0.2 % (0.0-1.0); EOSINOPHILS # (AUTO) 0.1 (0.0-0.4); EOSINOPHILS % 1.6 % (0.0-6.0); HEMATOCRIT 27.9 % (38.2-49.6); HEMOGLOBIN 8.8 g/dL (14.0-18.0); LYMPHOCYTES # (AUTO) 1.1 (1.0-3.2); LYMPHOCYTES % 17.9 % (18.0-39.1); MEAN CORPUSCULAR HEMOGLOBIN 28.6 pg (28-32); MEAN CORPUSCULAR HGB CONC 31.5 g/dL (31-35); MEAN CORPUSCULAR VOLUME 90.6 fL (81-99); MONOCYTES # (AUTO) 0.5 (0.2-0.8); MONOCYTES % 8.4 % (4.4-11.3); NEUTROPHILS # (AUTO) 4.5 (2.1-6.9); NEUTROPHILS % 71.1 % (38.7-80.0); PLATELET COUNT 248 x10e3/uL (140-360); RED BLOOD COUNT 3.08 x10e6/uL (4.3-5.7); RED CELL DISTRIBUTION WIDTH 15.7 % (11.7-14.4)
[2018-05-11 06:40] LABS: ALBUMIN 2.5 g/dL (3.5-5.0); ALBUMIN/GLOBULIN RATIO 0.8 (0.8-2.0); CALCIUM 8.7 mg/dL (8.4-10.2); CREATININE, SERUM 2.46 mg/dL (0.72-1.25)
[2018-05-11 08:20] VITALS: BP 170/72
[2018-05-11] MEDS: CALCITRIOL 0.25 MCG CAP PO SCH (08:20)
[2018-05-11] MEDS: PREDNISONE 5 MG TAB PO SCH (08:20)
[2018-05-11] MEDS: FERROUS SULFATE 325 MG TAB PO SCH (08:20)
[2018-05-11] MEDS: POTASSIUM CHLORIDE 20 MEQ TAB CR PO SCH (08:20)
[2018-05-11] MEDS: INSULIN REGULAR, HUMAN 100 UNIT/1 ML 3ML VIAL SQ SCH ×4 (08:20→21:33)
[2018-05-11] MEDS: HYDRALAZINE HCL 25 MG TAB PO SCH ×3 (08:20→21:33)
[2018-05-11] MEDS: MAGNESIUM OXIDE 400 MG TAB PO SCH (08:20)
[2018-05-11] MEDS: BRIMONIDINE/TIMOLOL (OPTH SOLN 5 ML DRPETTE OP SCH (08:20)
[2018-05-11] MEDS: TACROLIMUS 1 MG CAP PO SCH ×2 (08:20→18:00)
[2018-05-11] MEDS: FUROSEMIDE 40 MG TAB PO SCH ×2 (08:20→17:00)
[2018-05-11 08:21] VITALS: BP 170/72
[2018-05-11] MEDS: OXYCODONE/ACETAMINOPHEN 5-325 1 EACH TABLET PO PRN ×2 (08:40→23:30)
[2018-05-11] MEDS: CADEXOMER IODINE 30 GM TUBE TOP SCH (09:00)
[2018-05-11 12:12] VITALS: BP 111/55
[2018-05-11 16:49] VITALS: BP 121/58
--- NOTE | 2018-05-11 16:49 | Progress Note ---
DATE: 05/11/2018 SUBJECTIVE: The patient at beside, accompanied by spouse, doing better. Denies any history of fever, chills, nausea, or vomiting. OBJECTIVE: VITAL SIGNS: Afebrile, pulse rate 71, respirations 16, blood pressure 170/72, and O2 saturation 99%. EXTREMITIES: Ulceration to the plantar aspect of right foot showed some granulation tissue, tracking down to plantar fascia and bone. MEDICATIONS: Currently, on IV cefepime. LABORATORY DATA: White blood cell count 6.3, hemoglobin 8.8, hematocrit 27.9 with a platelet count of 248. ASSESSMENT: Grade 3/4 ulceration, right foot, Charcot foot, doing well and healing. PLAN: We will continue local wound care. Continue IV antibiotics. Continue offloading. Walking with the aid of the walking boot strictly. We will continue to follow. MELANIA Taylor/MARA /[id number]
[2018-05-11] MEDS: CEFEPIME 1GM/NS 0.9% 50 ML 50 ML IV SCH (18:40)
--- NOTE | 2018-05-11 19:10 | NUR ---
rounded with third shift lieutenant nurse, patient aware of change and in no distress. Call cobos within reach and bed in lowest position
[2018-05-11 20:00] VITALS: BP 116/48
[2018-05-11] MEDS: POVIDONE IODINE 10% 120 ML BTL EXT SCH (20:56)
[2018-05-11] MEDS: COLLAGENASE 5 GM TUBE TOP SCH (20:56)
[2018-05-11] MEDS: LATANOPROST(OPTH) 2.5 ML BTL OP SCH (21:32)
[2018-05-11] MEDS: DIPHENHYDRAMINE HCL 25 MG CAP PO PRN (22:08)
[2018-05-12] VITALS (8 sets, daily range): BP systolic 116–167; BP diastolic 48–70
[2018-05-12] MEDS: LINEZOLID 600 MG/D5W 300ML 300 ML IV SCH ×2 (01:44→13:44)
[2018-05-12] MEDS: DIPHENHYDRAMINE HCL 25 MG CAP PO PRN (02:02)
[2018-05-12 06:07] LABS: BASOPHILS % 0.5 % (0.0-1.0); EOSINOPHILS # (AUTO) 0.2 (0.0-0.4); EOSINOPHILS % 2.8 % (0.0-6.0); HEMATOCRIT 28.4 % (38.2-49.6); LYMPHOCYTES # (AUTO) 1.3 (1.0-3.2); LYMPHOCYTES % 20.7 % (18.0-39.1); MEAN CORPUSCULAR HEMOGLOBIN 28.7 pg (28-32); MEAN CORPUSCULAR HGB CONC 31.7 g/dL (31-35); MEAN CORPUSCULAR VOLUME 90.4 fL (81-99); MONOCYTES # (AUTO) 0.6 (0.2-0.8); MONOCYTES % 9.3 % (4.4-11.3); NEUTROPHILS # (AUTO) 4.3 (2.1-6.9); NEUTROPHILS % 65.9 % (38.7-80.0); PLATELET COUNT 255 x10e3/uL (140-360); RED BLOOD COUNT 3.14 x10e6/uL (4.3-5.7); RED CELL DISTRIBUTION WIDTH 15.4 % (11.7-14.4)
[2018-05-12 06:25] LABS: ALBUMIN 2.5 g/dL (3.5-5.0); ALBUMIN/GLOBULIN RATIO 0.8 (0.8-2.0); ANION GAP 14.8 mmol/L (8-16); CALCIUM 8.8 mg/dL (8.4-10.2); CREATININE, SERUM 2.48 mg/dL (0.72-1.25); POTASSIUM 4.8 mmol/L (3.5-5.1)
--- NOTE | 2018-05-12 06:50 | NUR ---
rounded with manager night nurse, patient aware of change and in no distress. Call cobos within reach and bed in lowest position.
[2018-05-12] MEDS: TACROLIMUS 1 MG CAP PO SCH ×2 (08:20→17:03)
[2018-05-12] MEDS: INSULIN REGULAR, HUMAN 100 UNIT/1 ML 3ML VIAL SQ SCH ×4 (08:20→21:18)
[2018-05-12] MEDS: PREDNISONE 5 MG TAB PO SCH (08:20)
[2018-05-12] MEDS: HYDRALAZINE HCL 25 MG TAB PO SCH ×3 (08:20→21:17)
[2018-05-12] MEDS: MAGNESIUM OXIDE 400 MG TAB PO SCH (08:20)
[2018-05-12] MEDS: FUROSEMIDE 40 MG TAB PO SCH ×2 (08:20→16:52)
[2018-05-12] MEDS: POTASSIUM CHLORIDE 20 MEQ TAB CR PO SCH (08:20)
[2018-05-12] MEDS: BRIMONIDINE/TIMOLOL (OPTH SOLN 5 ML DRPETTE OP SCH (08:20)
[2018-05-12] MEDS: FERROUS SULFATE 325 MG TAB PO SCH (08:20)
[2018-05-12] MEDS: OXYCODONE/ACETAMINOPHEN 5-325 1 EACH TABLET PO PRN ×2 (08:50→19:44)
[2018-05-12] MEDS: CADEXOMER IODINE 30 GM TUBE TOP SCH (09:00)
--- NOTE | 2018-05-12 15:26 | Progress Note ---
DATE: 05/12/2018 SUBJECTIVE: The patient seen at bedside, accompanied by Dr. Herbert, doing somewhat better. Denies any history of fever, chills, nausea, or vomiting. OBJECTIVE: VITAL SIGNS: Afebrile, pulse rate 80, respirations 17, blood pressure 116/48, and O2 saturation 99%. EXTREMITIES: Ulceration looking pretty clean. Granular fibrotic base going down to plantar fascia and bone with some drainage. Decreased cellulitis to the leg. Decreased edema. Has Charcot changes noted to the midfoot area. LABORATORY DATA: Labs show white blood cell count of 6.4, hemoglobin 9.0, and platelet count of 255. ASSESSMENT: Grade 3 ulceration, possible osteomyelitis with Charcot joint. PLAN: We will continue local wound care, continue IV antibiotics, continue offloading. We will continue to follow the patient. The patient's family members are instructed he will never be able to walk without the aid of the walking boot or a KETCHIKAN walker, to try [id number] amputation down the road. MELANIA Taylor/MARA /[id number]
[2018-05-12] MEDS: CEFEPIME 1GM/NS 0.9% 50 ML 50 ML IV SCH (17:03)
--- NOTE | 2018-05-12 19:00 | NUR ---
ROUNDED WITH SPOOLING MACHINE OPERATOR NURSE, PATIENT AWARE OF CHANGE. CALL MORATAYA WITHIN REACH AND BED IN LOWEST POSITION.
[2018-05-12] MEDS: COLLAGENASE 5 GM TUBE TOP SCH (20:00)
[2018-05-12] MEDS: POVIDONE IODINE 10% 120 ML BTL EXT SCH (20:00)
--- NOTE | 2018-05-12 20:14 | NUR ---
PATIENT AMBULATING IN THE [place] WITH ROLLING WALKER AND HIS AT HIS SIDE, HE WAS TOLD NOT TO AMBULATE AT THIS TIME SINCE HE HAS JUST BEEN GIVEN PAIN MEDICATION WHICH CAN CAUSE DROWSINESS. THE PATIENT IS NOW GOING BACK TO HIS ROOM. HIS PREFERS TO DO HIS DRESSING CHANGE TO THE RIGHT FOOT BECAUSE SHE PRAYS ON HIS FOOT.
[2018-05-12] MEDS: LATANOPROST(OPTH) 2.5 ML BTL OP SCH (21:16)
[2018-05-13] VITALS: BP 115/61
[2018-05-13] MEDS: ONDANSETRON HCL INJ 2MG/ML 2ML 2 MG/ML VIAL IV PRN ×2 (00:27→20:22)
[2018-05-13] MEDS: OXYCODONE/ACETAMINOPHEN 5-325 1 EACH TABLET PO PRN ×4 (00:27→20:40)
--- NOTE | 2018-05-13 00:27 | NUR ---
PATIENT C/O NAUSEA AND PAIN TO THE RIGHT LEG, MEDICATED WITH ZOFRAN AND PERCOCET 2TABS ORDERED. CALL LIGHT WITHIN EASY REACH, PATIENT INSTRUCTED TO CALL FOR ASSISTANCE UPON GETTING OUT OF THE BED.
[2018-05-13] MEDS: LINEZOLID 600 MG/D5W 300ML 300 ML IV SCH ×2 (02:23→14:36)
--- NOTE | 2018-05-13 02:23 | NUR ---
IV ANTIBIOTIC INFUSING ORDERED, NO ACUTE DISTRESS OBSERVED. ATTEMPTED TO PUT ON THE BED ALARM BUT THE PATIENT REFUSED TO HAVE IT ON. THE PATIENT IS LEGALLY BLIND DUE TO DIABETES, CALL LIGHT WITHIN EASY REACH, HE'S INSTRUCTED TO CALL FOR ASSISTANCE UPON GETTING OUT OF THE BED.
[2018-05-13 04:00] VITALS: BP 180/72
[2018-05-13] MEDS: DIPHENHYDRAMINE HCL 25 MG CAP PO PRN ×2 (04:40→20:35)
--- NOTE | 2018-05-13 04:41 | NUR ---
PATIENT C/O ITCHING, PAIN TO THE LEFT SHOULDER AND RIGHT LEG, MEDICATED WITH BENADRYL AND 1 PERCOCET. CALL LIGHT WITHIN EASY REACH, PATIENT INSTRUCTED TO CALL FOR ASSISTANCE NEEDED.
[2018-05-13 07:46] VITALS: BP 181/73
[2018-05-13] MEDS: INSULIN REGULAR, HUMAN 100 UNIT/1 ML 3ML VIAL SQ SCH ×4 (08:00→20:47)
[2018-05-13] MEDS: FERROUS SULFATE 325 MG TAB PO SCH (08:51)
[2018-05-13] MEDS: BRIMONIDINE/TIMOLOL (OPTH SOLN 5 ML DRPETTE OP SCH (08:51)
[2018-05-13] MEDS: HYDRALAZINE HCL 25 MG TAB PO SCH ×3 (08:51→20:35)
[2018-05-13] MEDS: POTASSIUM CHLORIDE 20 MEQ TAB CR PO SCH (08:51)
[2018-05-13] MEDS: FUROSEMIDE 40 MG TAB PO SCH ×2 (08:52→17:51)
[2018-05-13] MEDS: CALCITRIOL 0.25 MCG CAP PO SCH (08:52)
[2018-05-13] MEDS: TACROLIMUS 1 MG CAP PO SCH ×2 (08:52→17:51)
[2018-05-13] MEDS: MAGNESIUM OXIDE 400 MG TAB PO SCH (08:52)
[2018-05-13] MEDS: CADEXOMER IODINE 30 GM TUBE TOP SCH (09:15)
[2018-05-13 11:54] VITALS: BP 170/72
[2018-05-13] MEDS: PREDNISONE 5 MG TAB PO SCH (12:22)
--- NOTE | 2018-05-13 12:59 | Progress Note ---
DATE: 05/13/2018 SUBJECTIVE: The patient seen at bedside, doing better. Denies any history of fever, chills, nausea, or vomiting. OBJECTIVE: VITALS SIGNS: Afebrile, pulse rate 58, respirations 17, blood pressure 181/73, and O2 saturation 98%. EXTREMITIES: Ulceration to the right lower extremity continues to improve. Decreased cellulitis, Charcot foot deformity with a lot of motion overlying the midtarsal joint area with some crepitation felt. Ulcer more than 4 cm diameter tracking down to plantar fascia very close to bone. LABORATORY DATA: Labs show white blood cell count of 6.47, hemoglobin 9.0, hematocrit 28.4 with a platelet count of 255. Blood glucose of 225 with an INR of 3.43. ASSESSMENT: Possible osteomyelitis with a grade 3 ulceration healing with neuropathy and Charcot foot. PLAN: We will continue IV antibiotics. Continue local wound care. Continue weightbearing strictly with the walking boot. Continue cefepime 1 g IV piggyback q.24 h. MELANIA Taylor/MARA /[id number]
[2018-05-13 16:09] VITALS: BP 116/49
[2018-05-13] MEDS: CEFEPIME 1GM/NS 0.9% 50 ML 50 ML IV SCH (17:51)
--- NOTE | 2018-05-13 19:00 | NUR ---
Report and rounds completed. In bed resting, eyes closed, resp even and unlabored. at bedside. No issues or concerns at this time. Call light within reach. Will continue to monitor.
[2018-05-13 20:00] VITALS: BP 157/68
[2018-05-13] MEDS: COLLAGENASE 5 GM TUBE TOP SCH (20:28)
[2018-05-13] MEDS: LATANOPROST(OPTH) 2.5 ML BTL OP SCH (20:28)
[2018-05-13] MEDS: POVIDONE IODINE 10% 120 ML BTL EXT SCH (20:28)
--- NOTE | 2018-05-13 21:30 | NUR ---
patient and reported that completed dressing change for bedtime. Tolerated well per and no issues. states " I usually do his dressing changes at home."
--- NOTE | 2018-05-13 22:36 | NUR ---
In bed resting, eyes closed, resp even and unlabored. at bedside. No issues or concerns at this time. Call light within reach, bed locked and lowest position. Will continue to monitor.
--- NOTE | 2018-05-14 01:00 | NUR ---
pt received. tele in place per orders. no ss of distress noted. will cont to follow poc. call cobos within reach.
[2018-05-14 02:35] VITALS: BP 165/70
[2018-05-14] MEDS: LINEZOLID 600 MG/D5W 300ML 300 ML IV SCH ×2 (02:36→14:15)
[2018-05-14 04:00] VITALS: BP 122/74
--- NOTE | 2018-05-14 04:02 | NUR ---
pt resting. no ss of distress noted. call cobos within reach.
[2018-05-14 06:12] LABS: ALBUMIN 2.6 g/dL (3.5-5.0); ALBUMIN/GLOBULIN RATIO 0.8 (0.8-2.0); ANION GAP 15.4 mmol/L (8-16); CALCIUM 9.3 mg/dL (8.4-10.2); CREATININE, SERUM 2.47 mg/dL (0.72-1.25); POTASSIUM 5.4 mmol/L (3.5-5.1)
[2018-05-14 07:41] VITALS: BP 113/56
[2018-05-14] MEDS: INSULIN REGULAR, HUMAN 100 UNIT/1 ML 3ML VIAL SQ SCH ×4 (08:10→22:04)
[2018-05-14] MEDS: TACROLIMUS 1 MG CAP PO SCH ×2 (09:10→17:00)
[2018-05-14] MEDS: MAGNESIUM OXIDE 400 MG TAB PO SCH (09:10)
[2018-05-14] MEDS: FERROUS SULFATE 325 MG TAB PO SCH (09:10)
[2018-05-14] MEDS: FUROSEMIDE 40 MG TAB PO SCH (09:10)
[2018-05-14] MEDS: BRIMONIDINE/TIMOLOL (OPTH SOLN 5 ML DRPETTE OP SCH (09:10)
[2018-05-14] MEDS: CADEXOMER IODINE 30 GM TUBE TOP SCH (09:10)
[2018-05-14] MEDS: POTASSIUM CHLORIDE 20 MEQ TAB CR PO SCH (09:10)
[2018-05-14] MEDS: HYDRALAZINE HCL 25 MG TAB PO SCH ×3 (09:15→22:03)
--- NOTE | 2018-05-14 09:20 | NUR ---
Pt laying in bed resting at this time, no s/s of resp distress or SOB. A&O x4. No c/o pain. Wound dressing being done by as per requested by pt. Supplies provided and in room. Boot worn on R foot while ambulating.
[2018-05-14 11:27] VITALS: BP 155/67
[2018-05-14] MEDS ORDERED: SOD POLYSTYRENE SULFONATE SUSP 15 GM/60 ML BTL PO NR (13:45)
[2018-05-14 15:21] VITALS: BP 144/65
[2018-05-14] MEDS: SODIUM CHLORIDE 0.9% 1000ML 1,000 ML IV SCH (16:13)
--- NOTE | 2018-05-14 16:30 | Progress Note ---
DATE: 05/14/2018 SUBJECTIVE: The patient seen at bedside, accompanied by , doing better. Denies any history of fever, chills, nausea, vomiting. OBJECTIVE: VITALS SIGNS: Afebrile, pulse rate 70, respirations 21, blood pressure 113/56, O2 saturation 95%. EXTREMITIES: Ulceration to the right foot continues to improve, granular fibrotic base, plantar fascia visualized, tracking down to bone, but negative foul smell. Decreased cellulitis of the right leg and foot with still some pitting edema. LABORATORY DATA: White blood cell count is 6.4. ASSESSMENT: Charcot foot with a grade 3 ulcer, possible osteomyelitis. PLAN: Continue IV antibiotics. Continue local wound care. The patient may be going home soon on oral antibiotics, instructed upon discharge to follow up in the office and is to not walk without the aid of the [employer] walking boot. MELANIA Taylor/MARA /[id number]
[2018-05-14] MEDS: CEFEPIME 1GM/NS 0.9% 50 ML 50 ML IV SCH (16:59)
[2018-05-14] MEDS: SODIUM BICARBONATE 650 MG TAB PO SCH (17:00)
--- NOTE | 2018-05-14 17:00 | NUR ---
SCRIPT FOR [facility], COMPLETED AND FAXED TO [phone]; CONFIRMATION REC'D PHONE [phone] SPOKE WITH DOMENICA REFERENCE NUMBER FOR PHONE CALL [phone] MARKED EXPEDITED ALSO FAXED SCRIPT TO PT'S PHARMACY, CONFIRMATION REC'D [facility] [phone]; FAX- [phone] PLAN DC HOME 05/15 IF ZYVOX APPROVED
[2018-05-14 20:00] VITALS: BP 175/65
[2018-05-14] MEDS: COLLAGENASE 5 GM TUBE TOP SCH (20:00)
[2018-05-14] MEDS ORDERED: OXYCODONE/ACETAMINOPHEN 5-325 1 EACH TABLET PO PRN ×2 (20:00)
[2018-05-14] MEDS: POVIDONE IODINE 10% 120 ML BTL EXT SCH (20:00)
--- NOTE | 2018-05-14 20:13 | NUR ---
PATIENT C/O PAIN TO THE RIGHT LEG WITH PAIN SCORE #8, MEDICATED WITH PERCOCET 2 TABS ORDERED. CALL LIGHT WITHIN EASY REACH, PATIENT REFUSED TO HAVE THE BED ALARM ON.
--- NOTE | 2018-05-14 21:20 | NUR ---
PATIENT PERFORMED HIS WOUND CARE DRESSING TO THE RIGHT FOOT PER HIS PREFERENCE, THE WOUND LOOKS CLEAN WITHOUT ODOR. CALL LIGHT WITHIN EASY REACH, HE'S INSTRUCTED TO CALL FOR ASSISTANCE NEEDED.
[2018-05-14] MEDS: LATANOPROST(OPTH) 2.5 ML BTL OP SCH (22:03)
[2018-05-15] VITALS: BP 191/74
--- NOTE | 2018-05-15 00:36 | NUR ---
PATIENT ASLEEP, HE'S EASY TO AROUSE. HE STATES PAIN SCORE IS #4 BUT HE DOESN'T WANT PAIN MEDICATION AT THIS TIME. CALL LIGHT AND URINAL WITHIN EASY REACH, PATIENT INSTRUCTED TO CALL FOR ASSISTANCE NEEDED.
[2018-05-15] MEDS: LINEZOLID 600 MG/D5W 300ML 300 ML IV SCH ×2 (02:21→14:15)
[2018-05-15 04:00] VITALS: BP 178/72
--- NOTE | 2018-05-15 04:02 | NUR ---
PATIENT C/O BURNING SENSATION TO THE IV SITE, IV REMOVED WITH TIP INTACT. IV #20 GAUGE INSERTED TO THE RIGHT INDEX FINGER, THE PATIENT C/O PAIN WHILE THE ANTIBIOTIC WAS INFUSING AND REQUESTED THAT IT BE REMOVED. CHARGE NURSE STARTED AN IV 22 GAUGE TO THE RIGHT HAND, PATIENT TOLERATED PROCEDURE AND IV ANTIBIOTIC NOW INFUSING.
[2018-05-15 06:23] LABS: ALBUMIN 2.6 g/dL (3.5-5.0); ALBUMIN/GLOBULIN RATIO 0.9 (0.8-2.0); ANION GAP 15.6 mmol/L (8-16); CALCIUM 8.8 mg/dL (8.4-10.2); CREATININE, SERUM 2.5 mg/dL (0.72-1.25); POTASSIUM 4.6 mmol/L (3.5-5.1)
[2018-05-15 08:50] VITALS: BP 190/81
[2018-05-15] MEDS: FERROUS SULFATE 325 MG TAB PO SCH (09:00)
[2018-05-15] MEDS: CADEXOMER IODINE 30 GM TUBE TOP SCH (09:55)
[2018-05-15] MEDS: SODIUM BICARBONATE 650 MG TAB PO SCH (09:55)
[2018-05-15] MEDS: TACROLIMUS 1 MG CAP PO SCH (09:55)
[2018-05-15] MEDS: CALCITRIOL 0.25 MCG CAP PO SCH (09:55)
[2018-05-15] MEDS: BRIMONIDINE/TIMOLOL (OPTH SOLN 5 ML DRPETTE OP SCH (09:55)
[2018-05-15] MEDS: MAGNESIUM OXIDE 400 MG TAB PO SCH (09:55)
[2018-05-15] MEDS: HYDRALAZINE HCL 25 MG TAB PO SCH ×2 (09:55→16:03)
[2018-05-15] MEDS: INSULIN REGULAR, HUMAN 100 UNIT/1 ML 3ML VIAL SQ SCH ×2 (09:56→11:45)
[2018-05-15 11:53] VITALS: BP 133/60
[2018-05-15] MEDS: SODIUM CHLORIDE 0.9% 1000ML 1,000 ML IV SCH (12:57)
--- NOTE | 2018-05-15 13:55 | NUR ---
ARON SPOKE WITH KIMMY AT [facility] ZYVOX APPROVED TOTAL COST TO PT 93.[address] CHA NOTIFIED PLAN DC TODAY WHEN DR CHA ROUNDS
--- NOTE | 2018-05-15 15:30 | Progress Note ---
DATE: 05/15/2018 SUBJECTIVE: The patient seen at bedside, doing somewhat better. Denies any history of fever, chills, nausea, or vomiting. OBJECTIVE: VITALS SIGNS: Afebrile, pulse rate 73, respirations 18, blood pressure 178/72, and O2 saturation 97%. EXTREMITIES: Ulceration to the right foot continues to improve, granular fibrotic base, tracking down to the plantar fascia and bone, but negative foul smell. LABORATORY DATA: Labs show a white blood cell count of 6.4. ASSESSMENT: Charcot foot, grade 3 ulcer with possible osteomyelitis. PLAN: We will continue IV antibiotics, continue local wound care. The patient to walk strictly with the aid of the [employer] walking boot. We will continue to follow. MELANIA Taylor/MARA /[id number]
[2018-05-15 16:38] VITALS: BP 166/70
--- NOTE | 2018-05-16 16:06 | Discharge Summary ---
PRIMARY CARE PHYSICIAN: Pranay Calderón MD. CONSULTANTS: 1. Nick Hinojosa MD. 2. Kwabena Barreto MD. 3. Collins Kim MD. 4. Dean Barrera DPM. FINAL DIAGNOSES: 1. Right infected diabetic foot ulcer is healing. 2. Right foot osteomyelitis with Charcot foot. 3. Right foot cellulitis. 4. Chronic kidney disease with history of kidney transplant. SUMMARY: A 63-year-old male with recurrent admissions to the hospital. He had a chronic plantar diabetic foot ulcer and also cellulitis of the foot. The patient had multiple tests done and showed possible osteomyelitis. He has also had Charcot foot as well. He walks on the right foot, weightbearing as tolerated with the stabilizer, and the patient using the support brace for ambulation for sometime now. The patient will be discharged home. He was with leukocytosis and fever, that has completely resolved. He will go home with Zyvox 600 mg twice a day for 2 months along with Cipro 250 mg 1 tablet twice a day for 2 months. The patient is otherwise stable. He is to follow up with Dr. Barrera in a week, his primary care physician, Dr. Pranay Calderón in a week and with Infectious Disease in approximately 1 to 2 weeks. The patient is stable, discharged home today. Discussed with the patient at length regarding anticoagulant therapy. He will resume his home medication. MD JAYLA Holcomb/MODL /[id number]
== END 2018-05-15 18:13 | disposition home health service (06) | DRG 638 ==
LOC: ER 14:40 → ERHOLD 17:44 → IMCU 20:55 → OBSVTOIN 05-08 10:25
PROVIDERS: ADMIT Internal Medicine; ATTEND Internal Medicine
DX: E11.621 Type 2 diabetes mellitus with foot ulcer (principal); E87.1 Hypo-osmolality and hyponatremia; L03.115 Cellulitis of right lower limb; Z94.0 Kidney transplant status; M86.8X7 Other osteomyelitis, ankle and foot; L97.515 Non-pressure chronic ulcer of other part of right foot with muscle involvement without evidence of necrosis; E11.610 Type 2 diabetes mellitus with diabetic neuropathic arthropathy; Z79.4 Long term (current) use of insulin; E11.22 Type 2 diabetes mellitus with diabetic chronic kidney disease; Z99.2 Dependence on renal dialysis; D64.9 Anemia, unspecified; I12.9 Hypertensive chronic kidney disease with stage 1 through stage 4 chronic kidney disease, or unspecified chronic kidney disease; N18.3 Chronic kidney disease, stage 3 (moderate); N17.9 Acute kidney failure, unspecified; E11.69 Type 2 diabetes mellitus with other specified complication
CPT/HCPCS: 36415; 78806; 80048; 80053; 81001; 82948; 85025; 85610; 93005; 96367; 96372; 96376; 99284; A9521; A9556; A9570; G0378; J0610; J0692; J2020; J2405; J3370; J7030; J7507; J7512

== ENCOUNTER 2018-05-23 08:24 | Observation (INO) | payer MEDICARE, OTHER ==
[~2018-05-23] VITALS: Ht 170.2 cm; Wt 81.6 kg
[~2018-05-23 08:24] MED LIST changes: +AMERIGEL WOUN28.3 GM TOP; +COMBIGAN EYE DRO5 ML OP; +LATANOPROST2.5 ML OP; +santyl TOP
--- OUTSIDE RECORDS SUMMARY | 2018-05-23 08:27 | XMS REPORT | Clinical Summary ---
Author Author DEVIN [facility] Address Unknown Phone Unavailable Care Team Providers Care Compliance Engineer Name Role Phone Bam Mccarthy PCP Allergies [...] post kidney transplant 06/01/2013 Overview: ICD9 DX Brilliandeer Lopper L ast Assessment & Plan: Graft function [...] Signs Not on file Plan of Treatment Not on file Implants Device Identifier Shelf Expiration Date Model / Serial / Lot Implanted Type Area Manufactur er 09/06/2016 [id number] / / [id number] Adhesion Barrier,Seprafilm 5x6 - Cement/Wong N/A: Abdomen GENZYME [id number] ler/Adhesi SURGICAL Implanted: Qty: 2 on 07/06/2014 by ve [employer] Amrit Elam MD 02/06/2017 43003-11 / / [id number] Adhesion Barrier,Seprafilm 5x6 - Cement/Wong N/A: Abdomen GENZYME [id number] ler/Adhesi SURGICAL Implanted: Qty: 1 on 01/31/2015 by [employer] Amrit Trimble MD [id number] / / Stent,Uret Polaris 5fr X 10cm - Uro Stent [place] [id number] SCIENTIFIC Implanted: Qty: 1 on 05/24/2013 03/09/2016 [id number] / / [id number] Stent,Uret Polaris 5fr X 10cm - Uro Stent Right: Ureter [place] [id number] SCIENTIFIC Implanted: Qty: 1 on 01/21/2014 by Baljit Larson MD Results Not on fileafter 05/22/2017 Insurance Payer Benefit Subscriber ID Type Phone Address Plan / Group TEXANPLUS TEXANPLUS [facility] Advance Directives For more information, please contact: [facility] [address] [place] [id number] Date Inactivated Comments Code Status Date [...]
[2018-05-23] MEDS ORDERED: DEXTROSE 50% SYRINGE 50 ML IV ONE ×2 (08:37→09:30)
[2018-05-23] MEDS ORDERED: DEXTROSE 10% 1,000 ML IV SCH ×4 (09:00→23:50)
[2018-05-23 09:07] LABS: BASOPHILS % 0.2 % (0.0-1.0); EOSINOPHILS # (AUTO) 0.1 (0.0-0.4); EOSINOPHILS % 0.8 % (0.0-6.0); HEMATOCRIT 27.9 % (38.2-49.6); HEMOGLOBIN 9.1 g/dL (14.0-18.0); LYMPHOCYTES # (AUTO) 0.8 (1.0-3.2); LYMPHOCYTES % 8.6 % (18.0-39.1); MEAN CORPUSCULAR HEMOGLOBIN 29.2 pg (28-32); MEAN CORPUSCULAR HGB CONC 32.6 g/dL (31-35); MEAN CORPUSCULAR VOLUME 89.4 fL (81-99); MONOCYTES # (AUTO) 0.3 (0.2-0.8); MONOCYTES % 2.6 % (4.4-11.3); NEUTROPHILS # (AUTO) 8.5 (2.1-6.9); PLATELET COUNT 88 x10e3/uL (140-360); RED BLOOD COUNT 3.12 x10e6/uL (4.3-5.7); RED CELL DISTRIBUTION WIDTH 15.9 % (11.7-14.4)
[2018-05-23 09:17] LABS: INR 2.32; PROTHROMBIN TIME 26.2 seconds (11.9-14.5)
[2018-05-23 09:18] LABS: PARTIAL THROMBOPLASTIN TIME 60.7 seconds (23.8-35.5)
--- NOTE | 2018-05-23 09:18 | Diagnostic Imaging Report ---
ADDENDUM #1 Agree with preliminary report. Signed by: Dr. Chucho Briggs M.D. on 05/23/2018 12:18 PM ORIGINAL REPORT Exam: Noncontrast head CT History:63-year-old male with altered mental status Comparison studies: None Technique: Axial images were obtained from the skull base to the vertex. Coronal and sagittal images reconstructed from the axial data. Dose modulation, iterative reconstruction, and/or weight based adjustment of the mA/kV was utilized to reduce the radiation dose to as low as reasonably achievable. Intravenous contrast: None Findings: Scalp/skull: No abnormalities. Extra-axial spaces: No masses. No fluid collections. Brain sulci: Mildly prominent. Ventricles: Mild compensatory dilatation. No hydrocephalus. Parenchyma: Mild scattered hypodensities in the supratentorial white matter are small vessel ischemic changes. Chronic left subinsular and putaminal lacunar infarct. No masses, hemorrhage, or acute cortical vascular insults. Sellar/suprasellar region: No abnormalities. Craniocervical junction: Patent foramen magnum. No Chiari one malformation. Incidental findings: Extensive vessel mineralizations in the carotid siphons and superficial vessels . Bilateral cataract surgery. Mild scattered mucosal thickening in the sphenoid sinuses and ethmoid air cells. Impression: No acute abnormalities. Chronic findings: 1. Mild generalized volume loss. 2. Mild supratentorial white matter small vessel ischemic changes and chronic left basal ganglia/subinsular lacunar infarct. 3. Extensive vascular mineralization consistent with chronic systemic process such as renal failure. Preliminary report was provided by the neuroradiology fellow. Final read to follow. Signed by: Marin Boss MD on 05/23/2018 9:17 AM
--- NOTE | 2018-05-23 09:25 | Diagnostic Imaging Report ---
EXAMINATION: CHEST SINGLE (PORTABLE) INDICATION: ^AMS ^[id number] ^[id number] COMPARISON: 05/03/2018 FINDINGS: AP view TUBES and LINES: None. LUNGS: Limited by body habitus and low lung volumes. Central vascular congestion, accentuated by low lung volumes. Mild right lower lobe subsegmental atelectasis. PLEURA: No pleural effusion or pneumothorax. HEART AND MEDIASTINUM: The cardiomediastinal silhouette is enlarged. BONES AND SOFT TISSUES: No acute osseous lesion. Soft tissues are unremarkable. UPPER ABDOMEN: No free air under the diaphragm. IMPRESSION: Enlarged cardiac silhouette and central vascular congestion, accentuated by low lung volumes. Mild right lower lobe subsegmental atelectasis. Developing pneumonia cannot be excluded in the appropriate clinical context. Signed by: Dr. Chas Hardy MD on 05/23/2018 9:21 AM
[2018-05-23] MEDS ORDERED: OCTREOTIDE ACETATE 0.05 MG/ML AMP SQ ONE ×2 (09:30→10:00)
[2018-05-23 09:33] LABS: CREATINE KINASE MB 3.1 ng/mL (0-5.0)
[2018-05-23 09:36] LABS: ALBUMIN 2.9 g/dL (3.5-5.0); ANION GAP 15.3 mmol/L (8-16); CALCIUM 8.6 mg/dL (8.4-10.2); CREATININE, SERUM 2.46 mg/dL (0.72-1.25); MAGNESIUM 1.8 MG/DL (1.3-2.1); POTASSIUM 4.3 mmol/L (3.5-5.1)
[2018-05-23 10:00] LABS: B-TYPE NATRIURETIC PEPTIDE2 1834.5 pg/mL (0-100)
[2018-05-23] MEDS ORDERED: HYDRALAZINE HCL 20 MG/ML VIAL IV ONE (10:00)
[2018-05-23] MEDS ORDERED: ONDANSETRON HCL INJ 2MG/ML 2ML 2 MG/ML VIAL IV PRN (12:00)
[2018-05-23] MEDS ORDERED: DEXTROSE 50% SYRINGE 50 ML IV PRN (12:00)
--- OUTSIDE RECORDS SUMMARY | 2018-05-23 12:06 | XMS REPORT | Clinical Summary ---
Author Author DEVIN [facility] Address Unknown Phone Unavailable Care Team Providers Care Facing Machine Operator Name Role Phone Bam Mccarthy PCP Allergies [...] post kidney transplant 06/01/2013 Overview: ICD9 DX Information Assurance Analyst L ast Assessment & Plan: Graft function [...] Area Manufactur er 09/06/2016 [id number] / / [id number] Adhesion Barrier,Seprafilm 5x6 - Cement/Wong N/A: Abdomen GENZYME [id number] ler/Adhesi SURGICAL Implanted: Qty: 2 on 07/06/2014 by ve [employer] Amrit Elam MD 02/06/2017 [id number] / / [id number] Adhesion Barrier,Seprafilm 5x6 - Cement/Wong N/A: Abdomen GENZYME [id number] ler/Adhesi SURGICAL Implanted: Qty: 1 on 01/31/2015 by [employer] Amrit Trimble MD [id number] / / Stent,Uret Polaris 5fr X 10cm - Uro Stent [place] [id number] SCIENTIFIC Implanted: Qty: 1 on 05/24/2013 03/09/2016 [id number] / / [id number] Stent,Uret Polaris 5fr X 10cm - Uro Stent Right: Ureter [place] [id number] SCIENTIFIC Implanted: Qty: 1 on 01/21/2014 by Baljit Larson MD Results Not on fileafter 05/22/2017 Insurance Payer Benefit Subscriber ID Type Phone Address Plan / Group TEXANPLUS TEX[facility] x[facility] Advance Directives For more information, please contact: [facility] [address] [place] [phone] Date Inactivated Comments Code Status Date [...]
[2018-05-23 13:19] VITALS: BP 159/73
--- NOTE | 2018-05-23 13:30 | NUR ---
Received patient from ER patient arrived in stretcher, stand by assist to transfer to bed, patient has wound to right plantar approximally quater size. will change wound and will bring wound care supplies. mild edema to right lower extremity, appears red non pitting edema. Denies pain, Dextrose 10% 1000ml infusing @80mls per hour. patient has colostomy pouch in place to left upper quadrant stoma pink and moist stool brownish/green soft in colostomy bag. Oriented to room and use of call light belongings and call light within reach, at bedside, I requested to bring patient's boot and medicine bottles for me for med-reconciliation. verbalized understanding.
[2018-05-23 13:51] VITALS: BP 159/73
[2018-05-23 14:00] VITALS: BP 159/73
[2018-05-23] MEDS ORDERED: OCTREOTIDE ACETATE 0.05 MG/ML AMP SQ SCH (14:00)
[2018-05-23 15:43] VITALS: BP 168/79
[2018-05-23] MEDS: INSULIN LISPRO 100 UNIT/1 ML 3ML VIAL SQ SCH ×2 (17:00→20:46)
[2018-05-23 17:34] LABS: CREATINE KINASE MB 4.2 ng/mL (0-5.0)
[2018-05-23] MEDS ORDERED: CIPRO250 MG PO (18:22)
[2018-05-23] MEDS ORDERED: ZYVOX600 MG PO (18:22)
[2018-05-23] MEDS ORDERED: GLIPIZIDE5 MG PO (18:48)
[2018-05-23] MEDS ORDERED: DIPHENHYDRAMINE HCL 25 MG CAP PO PRN (19:00)
--- NOTE | 2018-05-23 19:32 | NUR ---
sent blood sample to lab
[2018-05-23 19:50] VITALS: BP 157/61
[2018-05-23] MEDS: HYDRALAZINE HCL 25 MG TAB PO SCH (20:06)
[2018-05-23] MEDS: OXYCODONE/ACETAMINOPHEN 5-325 1 EACH TABLET PO PRN (20:06)
[2018-05-23] MEDS: LINEZOLID 600 MG TAB PO SCH (20:06)
[2018-05-23] MEDS ORDERED: COLLAGENASE OINTMENT 30 GM TUBE TOP SCH (21:00)
[2018-05-23] MEDS ORDERED: LATANOPROST(OPTH) 2.5 ML BTL OP SCH (21:00)
[2018-05-24 00:13] LABS: CREATINE KINASE MB 3.3 ng/mL (0-5.0)
[2018-05-24 00:27] VITALS: BP 135/53
[2018-05-24] MEDS: OXYCODONE/ACETAMINOPHEN 5-325 1 EACH TABLET PO PRN (03:07)
[2018-05-24 05:10] VITALS: BP 131/81
[2018-05-24 05:13] LABS: BASOPHILS % 0.7 % (0.0-1.0); EOSINOPHILS # (AUTO) 0.2 (0.0-0.4); EOSINOPHILS % 5.4 % (0.0-6.0); HEMATOCRIT 24.7 % (38.2-49.6); LYMPHOCYTES # (AUTO) 1.1 (1.0-3.2); LYMPHOCYTES % 26.1 % (18.0-39.1); MEAN CORPUSCULAR HGB CONC 32.4 g/dL (31-35); MEAN CORPUSCULAR VOLUME 89.5 fL (81-99); MONOCYTES # (AUTO) 0.1 (0.2-0.8); MONOCYTES % 3.1 % (4.4-11.3); NEUTROPHILS # (AUTO) 2.7 (2.1-6.9); NEUTROPHILS % 63.5 % (38.7-80.0); PLATELET COUNT 58 x10e3/uL (140-360); RED BLOOD COUNT 2.76 x10e6/uL (4.3-5.7); RED CELL DISTRIBUTION WIDTH 15.9 % (11.7-14.4)
[2018-05-24 05:30] LABS: ANION GAP 11.9 mmol/L (8-16); CALCIUM 8.2 mg/dL (8.4-10.2); CREATININE, SERUM 2.45 mg/dL (0.72-1.25); POTASSIUM 4.9 mmol/L (3.5-5.1)
[2018-05-24 05:52] LABS: CREATINE KINASE MB 2.5 ng/mL (0-5.0)
[2018-05-24 08:10] VITALS: BP 161/67
[2018-05-24 09:00] VITALS: BP 131/81
[2018-05-24] MEDS ORDERED: FUROSEMIDE 40 MG TAB PO SCH (09:00)
[2018-05-24] MEDS ORDERED: MAGNESIUM OXIDE 400 MG TAB PO SCH (09:00)
[2018-05-24] MEDS ORDERED: FERROUS SULFATE 325 MG TAB PO SCH (09:00)
[2018-05-24] MEDS ORDERED: TACROLIMUS 1 MG CAP PO SCH (09:00)
[2018-05-24] MEDS ORDERED: BRIMONIDINE/TIMOLOL (OPTH SOLN 5 ML DRPETTE OP SCH (09:00)
[2018-05-24] MEDS ORDERED: WARFARIN SOD 1 MG TAB PO SCH ×2 (09:00→17:00)
[2018-05-24] MEDS ORDERED: [UNRECOGNIZED DRUG - SUPPLY] TOP SCH (09:00)
[2018-05-24] MEDS ORDERED: PREDNISONE 5 MG TAB PO SCH (09:00)
[2018-05-24] MEDS: LINEZOLID 600 MG TAB PO SCH (09:11)
[2018-05-24] MEDS: POTASSIUM CHLORIDE 10MEQ EA PO SCH ×2 (09:11→12:46)
[2018-05-24 09:20] VITALS: BP 148/55
[2018-05-24 09:25] LABS: INR 2.21; PROTHROMBIN TIME 25.2 seconds (11.9-14.5)
[2018-05-24] MEDS: HYDRALAZINE HCL 25 MG TAB PO SCH (09:31)
[2018-05-24] MEDS: INSULIN LISPRO 100 UNIT/1 ML 3ML VIAL SQ SCH ×2 (09:48→11:30)
[2018-05-24] MEDS ORDERED: POTASSIUM CHLO20 ME1 PO (09:48)
[2018-05-24] MEDS ORDERED: ONDANSETRON HCL INJ 2MG/ML 2ML 2 MG/ML VIAL IV PRN (10:15)
--- NOTE | 2018-05-24 11:40 | Discharge Summary ---
PRIMARY CARE PHYSICIAN: Dr. Pranay Calderón. FINAL DIAGNOSIS: 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, glipizide taken at home. SUMMARY: A 63-year-old male with chronic kidney disease, came in with blood sugar in the 30 to 40. The patient was unresponsive at home, but now his blood sugar in 131 to 135. The patient is otherwise stable. Blood sugar is much improved. The patient is stable. Discussed with the patient at length. The patient should not continue with any glipizide. Continue with insulin at a lower dose, half a dose if blood sugar is low. The patient is otherwise stable. Right foot wound is clean, open wound is healing. He does have a Charcot foot and wearing brace on ambulation. The patient is otherwise stable. His INR is 2.3. Atrial fibrillation, on warfarin 1 mg per day. The patient is stable, discharged home today. Follow up with Dr. Pranay Calderón early this coming week. MD JAYLA Holcomb/MARA /[id number]
[2018-05-24 12:00] VITALS: BP 151/69
--- NOTE | 2018-05-24 12:07 | NUR ---
Called Dr. Herbert patient's made aware Accu-check 60 patient is alert and oriented x3, and talking to me. Received orders O.K. to discharge.
--- NOTE | 2018-05-24 13:15 | NUR ---
discharged home verbalized understanding of d/c instructions.
[2018-05-25] MEDS ORDERED: CALCITRIOL 0.25 MCG CAP PO SCH (18:00)
== END 2018-05-24 13:08 | disposition home or self-care (01) ==
LOC: ER 08:24 → INTOOBSV 11:52 → ERHOLD 11:52 → IMCU 13:15
PROVIDERS: ADMIT Internal Medicine; ATTEND Internal Medicine
DX: E11.649 Type 2 diabetes mellitus with hypoglycemia without coma (principal); T38.3X5A Adverse effect of insulin and oral hypoglycemic [antidiabetic] drugs, initial encounter; Z79.84 Long term (current) use of oral hypoglycemic drugs; Y92.009 Unspecified place in unspecified non-institutional (private) residence as the place of occurrence of the external cause; A52.16 Charcot's arthropathy (tabetic); E11.628 Type 2 diabetes mellitus with other skin complications
CPT/HCPCS: 36415 ×2; 70450; 71045; 80048; 80053; 82140; 82550 ×2; 82553 ×2; 82948 ×2; 83605; 83735; 83880; 84484 ×2; 85025 ×2; 85610 ×2; 85730; 87040; 93005; 99285; G0378 ×2; J0360; J2354; J2405; J7507; J7512; J7799

== ENCOUNTER 2018-06-02 13:36 | Inpatient (IN) | payer OTHER ==
[~2018-06-02] VITALS: Ht 170.2 cm; Wt 88.9 kg
[~2018-06-02 13:36] MED LIST changes: +CIPRO250 MG PO; +GLIPIZIDE5 MG PO; +ZYVOX600 MG PO
--- OUTSIDE RECORDS SUMMARY | 2018-06-02 13:39 | XMS REPORT | Clinical Summary ---
Author Author DEVIN [facility] Address Unknown Phone Unavailable Care Team Providers Care Aircraft Loadmaster Superintendent Name Role Phone Bam Mccarthy PCP Allergies [...] post kidney transplant 06/01/2013 Overview: ICD9 DX Pie Chef L ast Assessment & Plan: Graft function [...] Area Manufactur er 09/06/2016 [id number] / / [id number] Adhesion Barrier,Seprafilm 5x6 - Cement/Wong N/A: Abdomen GENZYME [id number] ler/Adhesi SURGICAL Implanted: Qty: 2 on 07/06/2014 by ve [employer] Amrit Elam MD 02/06/2017 43003-11 / / [id number] Adhesion Barrier,Seprafilm 5x6 - Cement/Wong N/A: Abdomen GENZYME [id number] ler/Adhesi SURGICAL Implanted: Qty: 1 on 01/31/2015 by [employer] Amrit Trimble MD [id number] / / Stent,Uret Polaris 5fr X 10cm - Uro Stent [place] [id number] SCIENTIFIC Implanted: Qty: 1 on 05/24/2013 03/09/2016 [id number] / / [id number] Stent,Uret Polaris 5fr X 10cm - Uro Stent Right: Ureter [place] [id number] SCIENTIFIC Implanted: Qty: 1 on 01/21/2014 by Baljit Larson MD Results Not on fileafter 06/01/2017 Insurance Payer Benefit Subscriber ID Type Phone Address Plan / Group TEXANPLUS TEXANPLUS xxxxxxxxx [facility] Cont[facility] Advance Directives For more information, please contact: [facility] [address] [place] [phone] Date Inactivated Comments Code Status Date [...]
[2018-06-02 19:07] LABS: BASOPHILS % 0.3 % (0.0-1.0); HEMATOCRIT 24.6 % (38.2-49.6); LYMPHOCYTES # (AUTO) 0.7 (1.0-3.2); LYMPHOCYTES % 21.9 % (18.0-39.1); MEAN CORPUSCULAR HEMOGLOBIN 28.7 pg (28-32); MEAN CORPUSCULAR HGB CONC 32.5 g/dL (31-35); MEAN CORPUSCULAR VOLUME 88.2 fL (81-99); MONOCYTES # (AUTO) 0.1 (0.2-0.8); MONOCYTES % 2.4 % (4.4-11.3); NEUTROPHILS # (AUTO) 2.5 (2.1-6.9); NEUTROPHILS % 74.8 % (38.7-80.0); PLATELET COUNT 57 x10e3/uL (140-360); RED BLOOD COUNT 2.79 x10e6/uL (4.3-5.7); RED CELL DISTRIBUTION WIDTH 15.8 % (11.7-14.4)
[2018-06-02 19:21] LABS: INR 3.11; PROTHROMBIN TIME 32.8 seconds (11.9-14.5)
[2018-06-02 19:22] LABS: PARTIAL THROMBOPLASTIN TIME 67.8 seconds (23.8-35.5)
[2018-06-02 19:28] LABS: BILIRUBIN,URINE NEGATIVE (NEGATIVE); CLARITY,URINE HAZY (CLEAR); COLOR,URINE YELLOW (YELLOW); KETONES,URINE NEGATIVE (NEGATIVE); LEUKOCYTE ESTERASE ,URINE 1+ (NEGATIVE); NITRITE,URINE NEGATIVE (NEGATIVE); PROTEIN,URINE DIPSTICK NEGATIVE (NEGATIVE); URINE UROBILINOGEN 0.2 mg/dL (0.2 - 1)
[2018-06-02 19:30] LABS: ALBUMIN 3.2 g/dL (3.5-5.0); CALCIUM 9.2 mg/dL (8.4-10.2); CREATININE, SERUM 3.13 mg/dL (0.72-1.25)
[2018-06-02 19:37] LABS: CREATINE KINASE MB 2.2 ng/mL (0-5.0); EPITHELIAL CELLS,URINE FEW /LPF; TRANSITIONAL EPI CELLS,URINE MANY; WBC,URINE (MAN) 0-5 /HPF (0-5); YEAST,URINE MANY
--- NOTE | 2018-06-02 19:40 | Diagnostic Imaging Report ---
EXAMINATION: CHEST SINGLE (NOT PORTABLE) COMPARISON: Chest x-ray 05/03/2018 INDICATION: Shortness of breath history of fall ^ORDER PLACED BY ^[id number] ^1850 ^Y DISCUSSION: Frontal view of the chest obtained at 1846 hours. HEART AND MEDIASTINUM: Stable cardiomegaly and aortic ectasia LINES: None. LUNGS: New right upper lobe infiltrate. Left lung is clear. PLEURA: No pleural effusion or pneumothorax. BONES AND SOFT TISSUES: Osseous structures appear intact. No dislocation. No focal osseous lesion. There are small arterial calcifications in the lower neck . IMPRESSION: New right upper lobe infiltrate suggestive of pneumonia. Given the history of trauma, contusion cannot be excluded. Stable cardiomegaly. Signed by: Dr. Randi Tejeda MD on 06/02/2018 7:37 PM
--- NOTE | 2018-06-02 19:42 | Diagnostic Imaging Report ---
Pelvis CPT code: 16956 Indication: Fall, hip pain Technique: Single AP image obtained Comparison: None Findings: There are extensive calcifications throughout the arterial structures. The bones are diffusely demineralized. No diastases of the pubic symphysis or sacroiliac joints. The hips are intact and normally situated. No evidence of fracture of the pubic symphysis or pubic rami. Iliac wings appear intact. IMPRESSION: No evidence of fracture or dislocation. Extensive vascular calcifications. Signed by: Dr. Randi Tejeda MD on 06/02/2018 7:39 PM
--- NOTE | 2018-06-02 19:44 | Diagnostic Imaging Report ---
Sacrum and coccyx CPT code: 72647 History: Fall Findings: AP and lateral view of the sacrum and coccyx were obtained. Images of the inferior sacrum and coccyx are overexposed. The bones are diffusely demineralized. No fractures or focal osseous lesions. No dislocation. Facet joints appeared intact. There are extensive vascular calcifications throughout the arterial structures as well as calcifications of the vas deferens. IMPRESSION: No evidence of fracture or dislocation on provided images. The inferior sacrum and coccyx are poorly visualized. Signed by: Dr. Randi Tejeda MD on 06/02/2018 7:41 PM
[2018-06-02] MEDS ORDERED: CEFEPIME HCL 1 GM VIAL IV SCH (20:00)
[2018-06-02] MEDS ORDERED: VANCOMYCIN 1GM/NS 250 ML 250 ML IV SCH (20:00)
[2018-06-02] MEDS ORDERED: CEFEPIME 1GM/NS 0.9% 50 ML 50 ML IV SCH (21:00)
[2018-06-02] MEDS ORDERED: LEVOFLOXACIN 750MG/D5W 150ML IV SCH (21:15)
[2018-06-02] MEDS ORDERED: VANCOMYCIN HCL 1GM/NS 250 ML BAG IV SCH (21:15)
[2018-06-02] MEDS ORDERED: LEVOFLOXACIN 750MG/D5W 150ML 150 ML IV NR (21:30)
--- OUTSIDE RECORDS SUMMARY | 2018-06-02 21:36 | XMS REPORT | Clinical Summary ---
Author Author DEVIN [facility] Address Unknown Phone Unavailable Care Team Providers Care Property Management Accountant Name Role Phone Bam Mccarthy PCP Allergies [...] post kidney transplant 06/01/2013 Overview: ICD9 DX Sea Kayaking Guide L ast Assessment & Plan: Graft function [...] Area Manufactur er 09/06/2016 [id number] / / [id number] Adhesion Barrier,Seprafilm 5x6 - Cement/Wong N/A: Abdomen GENZYME [id number] ler/Adhesi SURGICAL Implanted: Qty: 2 on 07/06/2014 by ve [employer] Amrit Elam MD 02/06/2017 43003-11 / / [id number] Adhesion Barrier,Seprafilm 5x6 - Cement/Wong N/A: Abdomen GENZYME [id number] ler/Adhesi SURGICAL Implanted: Qty: 1 on 01/31/2015 by [employer] Amrit Trimble MD [id number] / / Stent,Uret Polaris 5fr X 10cm - Uro Stent [place] [id number] SCIENTIFIC Implanted: Qty: 1 on 05/24/2013 03/09/2016 [id number] / / [id number] Stent,Uret Polaris 5fr X 10cm - Uro Stent Right: Ureter [place] [id number] SCIENTIFIC Implanted: Qty: 1 on 01/21/2014 by Baljit Larson MD Results Not on fileafter 06/01/2017 Insurance Payer Benefit Subscriber ID Type Phone Address Plan / Group TEXANPLUS TEXANPLUS xxxxxxxxx [facility] Cont[facility] Advance Directives For more information, please contact: [facility] [address] [place] [phone] Date Inactivated Comments Code Status Date [...]
[2018-06-02 21:42] LABS: BAND NEUTROPHILS % (MANUAL) 13 %; LYMPHOCYTES % (MANUAL) 23 % (19-48); MONOCYTES % (MANUAL) 3 % (3.4-9.0); NEUTROPHILS % (MANUAL) 61 % (40-74)
[2018-06-02 21:44] LABS: PLATELET MORPHOLOGY COMMENT NORMAL
[2018-06-02 21:46] LABS: HYPOCHROMASIA SLIGHT; PLATELET ESTIMATE MARKEDLY DECREASED; POIKILOCYTOSIS SLIGHT; RBC MORPHOLOGY COMMENT ABNORMAL
[2018-06-02 21:47] LABS: ANISOCYTOSIS MODERATE
--- NOTE | 2018-06-02 21:57 | NUR ---
Pt is noted to be resting comfortably in bed with eyes closed at this time.
[2018-06-02] MEDS ORDERED: CEFEPIME HCL 2 GM/SOD CHL 0.9% 100 ML BAG IV SCH (22:00)
[2018-06-02] MEDS ORDERED: ENOXAPARIN SOD INJ 40 MG/0.4 ML SYR SC STA (22:17)
[2018-06-02] MEDS ORDERED: PREDNISONE 20 MG TAB PO ONE (22:30)
[2018-06-02] MEDS ORDERED: GLIPIZIDE10 MG PO (22:41)
[2018-06-02] MEDS ORDERED: AMOX TR-K CLV1 EAC1 (22:42)
[2018-06-03] VITALS (9 sets, daily range): BP systolic 101–160; BP diastolic 42–69
--- NOTE | 2018-06-03 00:02 | NUR ---
pt received at time. no ss of distress noted. bedside monitor placed a time. will cont to follow poc. call cobos within reach.
--- NOTE | 2018-06-03 00:40 | NUR ---
blood collected and sent to lab per orders. no ss of distress noted. pt tolerated well. call cobos within reach.
--- NOTE | 2018-06-03 01:45 | NUR ---
Pt received from ER. Pt A&O and in no apparent distress. Pt spouse at bedside. Pt on RA and tele #[phone]. Pt has R foot wound, clean, dry, and intact. All safety measures ensured and pt call cobos near. Pt spouse to stay overnight.
--- NOTE | 2018-06-03 01:50 | NUR ---
pt transferred to 288 via stretcher. no ss of distress noted. no co pain at time. call cobso within reach. Addendum: 06/03/18 at 0225 by Carie Mosquera RN tele in place per orders.
--- NOTE | 2018-06-03 06:26 | NUR ---
Consult for Dr. Barreto called
--- NOTE | 2018-06-03 07:00 | NUR ---
BEDSIDE SHIFT REPORT FROM NIGHT RN. PT DENIES NEEDS AT THIS TIME.
[2018-06-03 07:50] LABS: ALBUMIN 2.8 g/dL (3.5-5.0); ANION GAP 14.6 mmol/L (8-16); CALCIUM 8.6 mg/dL (8.4-10.2); CREATININE, SERUM 2.88 mg/dL (0.72-1.25); POTASSIUM 4.6 mmol/L (3.5-5.1)
[2018-06-03 07:57] LABS: BASOPHILS % 0.5 % (0.0-1.0); EOSINOPHILS % 0.2 % (0.0-6.0); HEMATOCRIT 23.9 % (38.2-49.6); HEMOGLOBIN 7.7 g/dL (14.0-18.0); LYMPHOCYTES # (AUTO) 0.8 (1.0-3.2); LYMPHOCYTES % 18.2 % (18.0-39.1); MEAN CORPUSCULAR HEMOGLOBIN 28.1 pg (28-32); MEAN CORPUSCULAR HGB CONC 32.2 g/dL (31-35); MEAN CORPUSCULAR VOLUME 87.2 fL (81-99); MONOCYTES # (AUTO) 0.1 (0.2-0.8); MONOCYTES % 2.3 % (4.4-11.3); NEUTROPHILS # (AUTO) 3.4 (2.1-6.9); NEUTROPHILS % 78.3 % (38.7-80.0); RED BLOOD COUNT 2.74 x10e6/uL (4.3-5.7); RED CELL DISTRIBUTION WIDTH 15.8 % (11.7-14.4)
[2018-06-03 08:02] LABS: PLATELET COUNT 44 x10e3/uL (140-360)
[2018-06-03 08:32] LABS: CREATINE KINASE MB 1.6 ng/mL (0-5.0)
--- NOTE | 2018-06-03 09:00 | NUR ---
NOTIFIED DR. CHA OF LOW PLATELETS. NO NEW ORDERS AT THIS TIME.
--- NOTE | 2018-06-03 09:00 | NUR ---
PT HAS REFUSED TO WEAR A GOWN. PT'S RT FOOT DRESSING CHANGED PER ORDERS. PT C/O NOT BEING ABLE TO SLEEP FOR OVER 36 HR.S
[2018-06-03] MEDS ORDERED: DEXTROSE 50% SYRINGE 50 ML IV PRN (09:30)
[2018-06-03] MEDS ORDERED: CALCITRIOL 0.25 MCG CAP PO SCH (09:30)
[2018-06-03] MEDS ORDERED: LINEZOLID 600 MG TAB PO SCH (09:30)
[2018-06-03] MEDS ORDERED: OXYCODONE/ACETAMINOPHEN 5-325 1 EACH TABLET PO PRN (09:30)
[2018-06-03] MEDS ORDERED: BENZONATATE 100 MG CAP PO PRN (09:30)
[2018-06-03] MEDS: GUAIFENESIN 600 MG TAB PO SCH ×2 (10:11→17:48)
[2018-06-03] MEDS: CALCITRIOL 0.25 MCG CAP PO SCH (10:11)
[2018-06-03] MEDS: INSULIN LISPRO 100 UNIT/1 ML 3ML VIAL SQ SCH ×3 (11:30→20:31)
--- NOTE | 2018-06-03 11:31 | Diagnostic Imaging Report ---
EXAMINATION: CT scan of the chest without contrast. TECHNIQUE: Spiral CT images of the chest were performed from the lung apices to the level of the adrenal glands. No intravenous contrast was administered per referring physician request. Coronal and sagittal reformatted images were obtained. COMPARISON: Chest radiograph 06/02/2018 CLINICAL HISTORY:Abnormal chest x-ray DISCUSSION: ABSENCE OF INTRAVENOUS CONTRAST DECREASES SENSITIVITY FOR DETECTION OF FOCAL LESIONS AND VASCULAR PATHOLOGY. LINES/TUBES: None. LUNGS AND AIRWAYS: Groundglass nodular opacities coalescing in the areas of consolidation involving the right upper lobe, lateral segment of the right middle lobe, and bilateral lower lobes right worse then left. Calcified granuloma right lower lobe. Trachea, mainstem bronchi, and lobar bronchi are patent. PLEURA: No pneumothorax or pleural effusions. HEART AND MEDIASTINUM: Visualized thyroid gland appears normal. No significant pericardial effusion. Atherosclerotic calcifications of the aortic arch, great vessel origins, and alturas coronary arteries. No ectasia or aneurysmal dilatation of the thoracic aorta. Enlargement of the pulmonary outflow tract (38 mm in diameter). Mild cardiomegaly. LYMPH NODES: No axillary, hilar, or mediastinal lymphadenopathy. ABDOMEN: Visualized portions of the liver, spleen, pancreas, and adrenal glands are unremarkable. BONES AND SOFT TISSUES: Incompletely healed fractures of the distal left clavicle in the posterior left ninth, 10th, 11th ribs. IMPRESSION: Multifocal pneumonia involving the right upper lobe, right middle lobe, and bilateral lower lobes. Follow-up chest CT in 3 months is suggested to document resolution after appropriate treatment. Incompletely healed fracture deformity of the left clavicle and several left-sided ribs as described above. Moderate cardiomegaly without pulmonary edema. Enlargement of the pulmonary outflow tract suggests pulmonary hypertension. Advanced atherosclerotic vascular disease. Signed by: Dr. Amrit Mcintosh M.D. on 06/03/2018 11:27 AM
[2018-06-03] MEDS ORDERED: POTASSIUM CHLORIDE 20 MEQ TAB CR PO SCH (12:00)
[2018-06-03] MEDS: POTASSIUM CHLORIDE 10MEQ EA PO SCH ×2 (13:09→17:48)
[2018-06-03] MEDS: HYDRALAZINE HCL 25 MG TAB PO SCH ×2 (15:43→20:30)
[2018-06-03] MEDS: BENZONATATE 100 MG CAP PO SCH ×2 (15:43→20:30)
--- NOTE | 2018-06-03 15:52 | NUR ---
CM SPOKE TO PATIENT AT BEDSIDE REGARDING IMM LETTER. IMM LETTER GIVEN WITH EXPLANATION BASED ON ANTICIPATED DISCHARGE DATE. ORIGINAL SIGNED AND PLACED IN CHART; COPY OF ORIGINAL DOCUMENT GIVEN TO PATIENT AT BEDSIDE AND PLACED IN CARE TRANSITION FOLDER. CM CONTACT INFORMATION GIVEN TO PATIENT FOR ANY NEEDS OR CONCERNS. PATIENT WITH NO FURTHER QUESTIONS.
[2018-06-03 16:29] LABS: % IRON SATURATION 51 % (15-50); IRON 72 ug/dL (65-175); TOTAL IRON BINDING CAPACITY 140 ug/dL (261-478); TRANSFERRIN 100 mg/dL (174-364)
[2018-06-03] MEDS: OXYCODONE/ACETAMINOPHEN 5-325 1 EACH TABLET PO PRN (16:34)
[2018-06-03] MEDS ORDERED: WARFARIN SOD 1 MG TAB PO SCH (17:00)
--- NOTE | 2018-06-03 17:00 | NUR ---
PT FEELING MUCH BETTER SINCE REMOVING BLANKETS AND STARTING FLUIDS.
[2018-06-03] MEDS: PIPERACILLIN/TAZO 2.25 GM 50 ML IV SCH (17:48)
[2018-06-03] MEDS: TACROLIMUS 1 MG CAP PO SCH (17:48)
[2018-06-03] MEDS: SODIUM CHLORIDE 0.9% 1000ML 1,000 ML IV SCH (17:48)
--- NOTE | 2018-06-03 18:26 | Consultation ---
DATE OF CONSULTATION: HISTORY OF PRESENT ILLNESS: Mr. Rios is well known to me. He is a 63-year-old gentleman with underlying history of cadaveric kidney transplant with chronic rejection, on immunosuppressive medication, was admitted because of shortness of breath, found to have pneumonia involving right upper and middle lobe. He is currently on oxygen, looks quite pale, significantly anemic on blood test with a hemoglobin of 7.7. Chemistry showing sodium 129, potassium 4.6, bicarbonate 21, and creatinine 2.88. His baseline serum creatinine is around 2.46. PAST MEDICAL HISTORY: Significant for diabetes, hypertension, cadaveric kidney transplant on immunosuppressive medications, history of congestive heart failure, diabetic neuropathy, nephropathy, history of colostomy, diabetic foot ulcer, stage 3 to 4 kidney failure. Currently denies shortness of breath or nausea though admits to cough. CURRENT MEDICATIONS: Levaquin 750 mg once a day. He is on benzonatate, calcitriol, Rocaltrol, enoxaparin, diphenhydramine, guaifenesin 40 mg, Lasix daily, hydralazine 100 mg p.o. t.i.d., Humalog insulin, mag sulfate, prednisone 5 mg p.o. daily, tacrolimus 2 mg p.o. b.i.d. He is on oxycodone. ALLERGIES: NO APPARENT DRUG ALLERGIES. PHYSICAL EXAMINATION: VITAL SIGNS: Blood pressure of 106/42, pulse rate 106, and afebrile. HEAD AND NECK: Cornea clear. Mucosa moist. LUNGS: Harsh vesicular breath sounds. Rales with rhonchi, right mid zone and lower zone. Left lung field relatively clear. HEART: S1 and S2 audible. ABDOMEN: Otherwise soft and nontender. LOWER EXTREMITIES: Chronic changes with dressing noted, 1+ edema. IMPRESSION: Anemia, metabolic acidosis, acute on chronic kidney failure, underlying chronic rejection with stage 4 kidney failure. Plan on obtaining iron profile, underlying hyponatremia secondary to underlying pneumonia in an immunosuppressed patient. We will consult Infectious Disease and Pulmonary Service. The patient may need transfusion, at least IV iron at minimum. We will change antibiotic to piperacillin tazobactam. Continue with immunosuppressive medications. We will start IV normal saline, hydrate gently. Continue with Lasix. Please see orders. MD CHIQUI Smalls/MARA /[id number]
[2018-06-03] MEDS: DOXYCYCLINE HYCLATE TABLET 100 MG TAB PO SCH (18:43)
--- NOTE | 2018-06-03 19:49 | NUR ---
PT IS SLEEPING IN BED WITH FAMILY AT BEDSIDE. RESPIRATION IS EVEN AND UNLABORED, NO DISTRESS NOTED. BED IN THE LOWEST POSITION, LOCKED, AND CALL LIGHT WITHIN REACH. WILL CONTINUE TO MONITOR.
[2018-06-03] MEDS: LATANOPROST(OPTH) 2.5 ML BTL OP SCH (20:30)
[2018-06-03] MEDS: COLLAGENASE OINTMENT 30 GM TUBE TP SCH (20:31)
[2018-06-03] MEDS ORDERED: SANTYL TOP SCH (21:00)
[2018-06-03] MEDS: ALBUTEROL SULF 0.083% NEB SOLN 3 ML NEB NEB SCH (23:00)
[2018-06-04] VITALS (8 sets, daily range): BP systolic 105–181; BP diastolic 52–77
--- NOTE | 2018-06-04 00:08 | Consultation ---
DATE OF CONSULTATION: Pulmonary Consultation Patient of Dr. Herbert and Dr. Kim. HISTORY OF PRESENT ILLNESS: Charming, but unfortunate 63-year-old gentleman, ill for approximately 6 days with shortness of breath and productive cough, unable to sleep. He is blind related to his diabetic retinopathy. He has had end-stage renal disease, underwent a transplant in 2013, apparently complicated by diverticular disease and a colostomy. for over 40 years. Chronic atrial fibrillation, Charcot joints. Complains of vomiting and gagging. FAMILY HISTORY: Positive for renal failure and diabetes. SOCIAL HISTORY: He smoked, says for 2 years, quit 30 years ago. Drank MEDICATIONS: Included Combigan, calcitriol, Benadryl, iron, Lasix, Apresoline, latanoprost drops, linezolid, magnesium, oxycodone, potassium, prednisone, tacrolimus, warfarin, zinc, Santyl, Tresiba as well as glipizide and Augmentin, which he apparently was on for his foot ulcer. PHYSICAL EXAMINATION: VITAL SIGNS: Temperature 100.2, pulse 113 and irregular, respirations 18, blood pressure . GENERAL: He is blind, pale. Moves all extremities. LUNGS: Rales bilaterally, right greater than left. HEART: Regular rhythm. ABDOMEN: Colostomy in place. Renal transplant in place. EXTREMITIES: Charcot joints, heel ulcer. IMPRESSION AND PLAN: Community-acquired pneumonia. The patient, however, was recently hospitalized. He is certainly a candidate for complicated pneumonia. He has been seen in the past and apparently on antibiotics prescribed by Dr. Hinojosa, who discussed with him. We will add doxycycline to the regimen. He has received one dose of vancomycin and Zosyn. We will request urine for Legionella, sputum studies, blood cultures, and check arterial blood gases. Thank you for this kind referral. MD ROEL Herrera/MODL /[id number]
[2018-06-04] MEDS: PIPERACILLIN/TAZO 2.25 GM 50 ML IV SCH ×3 (00:18→18:03)
[2018-06-04 06:26] LABS: BASOPHILS % 0.5 % (0.0-1.0); HEMATOCRIT 21.4 % (38.2-49.6); LYMPHOCYTES # (AUTO) 0.9 (1.0-3.2); MEAN CORPUSCULAR HEMOGLOBIN 28.3 pg (28-32); MEAN CORPUSCULAR HGB CONC 32.7 g/dL (31-35); MEAN CORPUSCULAR VOLUME 86.6 fL (81-99); MONOCYTES # (AUTO) 0.1 (0.2-0.8); MONOCYTES % 1.4 % (4.4-11.3); NEUTROPHILS # (AUTO) 3.4 (2.1-6.9); NEUTROPHILS % 77.6 % (38.7-80.0); RED BLOOD COUNT 2.47 x10e6/uL (4.3-5.7); RED CELL DISTRIBUTION WIDTH 15.9 % (11.7-14.4)
[2018-06-04 06:31] LABS: PLATELET COUNT 36 x10e3/uL (140-360)
--- NOTE | 2018-06-04 06:33 | NUR ---
NOTIFIED DR CHA OF PT PLT OF 36. NO NEW ORDERS AT THIS TIME. WILL CONTINUE TO MONITOR.
[2018-06-04 06:34] LABS: PROTHROMBIN TIME 49.2 seconds (11.9-14.5)
[2018-06-04 06:39] LABS: INR 5.27
[2018-06-04 06:49] LABS: ANION GAP 15.7 mmol/L (8-16); CALCIUM 8.2 mg/dL (8.4-10.2); CREATININE, SERUM 2.84 mg/dL (0.72-1.25); POTASSIUM 4.7 mmol/L (3.5-5.1)
--- NOTE | 2018-06-04 06:52 | NUR ---
PT COMPLAINING OF NAUSEA. PER DR CHA ZOFRUZAIR 4MG IV Q4H PRN. WILL CONTINUE TO MONITOR.
[2018-06-04] MEDS ORDERED: ONDANSETRON HCL INJ 2MG/ML 2ML 2 MG/ML VIAL IV PRN (07:00)
[2018-06-04] MEDS: ALBUTEROL SULF 0.083% NEB SOLN 3 ML NEB NEB SCH ×3 (07:00→19:50)
--- NOTE | 2018-06-04 07:00 | NUR ---
BEDSIDE SHIFT REPORT FROM NIGHT RN. PT DENIES NEEDS AT THIS TIME.
[2018-06-04 07:26] LABS: INR 5.05; PROTHROMBIN TIME 47.6 seconds (11.9-14.5)
[2018-06-04] MEDS: INSULIN LISPRO 100 UNIT/1 ML 3ML VIAL SQ SCH ×4 (07:30→20:35)
[2018-06-04 07:34] LABS: ABG HCO3 16 mmol/L (23-28); ABG PCO2 28 mmHg (41-51); ABG PH 7.37 (7.31-7.41); ABG PO2 67 mmHg (80-105)
[2018-06-04] MEDS ORDERED: ONDANSETRON HCL 4 MG ORAL DISINTEGRATING TAB PO PRN (08:00)
[2018-06-04] MEDS: HYDRALAZINE HCL 25 MG TAB PO SCH ×3 (09:00→20:34)
[2018-06-04] MEDS ORDERED: MAGNESIUM OXIDE 400 MG TAB PO SCH (09:00)
[2018-06-04] MEDS ORDERED: TRESIBA 30 UNIT SQ SCH (09:00)
[2018-06-04] MEDS ORDERED: WARFARIN SOD 1 MG TAB PO SCH (09:00)
[2018-06-04] MEDS ORDERED: FERROUS SULFATE 325 MG TAB PO SCH (09:00)
[2018-06-04 09:10] LABS: BAND NEUTROPHILS % (MANUAL) 7 %; EOSINOPHILS % (MANUAL) 4 % (0-7); LYMPHOCYTES % (MANUAL) 17 % (19-48); MONOCYTES % (MANUAL) 1 % (3.4-9.0); NEUTROPHILS % (MANUAL) 70 % (40-74)
[2018-06-04 09:12] LABS: ANISOCYTOSIS SLIGHT; HYPOCHROMASIA MODERATE; PLATELET ESTIMATE MARKEDLY DECREASED; PLATELET MORPHOLOGY COMMENT NORMAL; RBC MORPHOLOGY COMMENT NORMAL
[2018-06-04] MEDS: BRIMONIDINE/TIMOLOL (OPTH SOLN 5 ML DRPETTE OP SCH (09:27)
[2018-06-04] MEDS: GUAIFENESIN 600 MG TAB PO SCH ×2 (09:27→18:03)
[2018-06-04] MEDS: FUROSEMIDE 40 MG TAB PO SCH (09:27)
[2018-06-04] MEDS: MAGNESIUM OXIDE 400 MG TAB PO SCH (09:27)
[2018-06-04] MEDS: BENZONATATE 100 MG CAP PO SCH (09:28)
[2018-06-04] MEDS: TACROLIMUS 1 MG CAP PO SCH ×2 (09:28→18:04)
[2018-06-04] MEDS: PREDNISONE 5 MG TAB PO SCH (09:28)
[2018-06-04] MEDS: DOXYCYCLINE HYCLATE TABLET 100 MG TAB PO SCH ×2 (09:28→20:35)
[2018-06-04] MEDS: POTASSIUM CHLORIDE 10MEQ EA PO SCH ×3 (09:32→18:03)
[2018-06-04] MEDS: [UNRECOGNIZED DRUG - OTHER] TOP SCH (09:33)
[2018-06-04] MEDS: ZINC ACETATE TOP SCH (09:33)
[2018-06-04] MEDS ORDERED: OXAZEPAM 10 MG CAP PO PRN (10:15)
[2018-06-04] MEDS: SODIUM CHLORIDE 0.9% 1000ML 1,000 ML IV SCH (12:30)
[2018-06-04] MEDS ORDERED: EPOETIN ALFA 10000 UNIT/ML VIAL SC ONE (13:30)
--- NOTE | 2018-06-04 14:00 | NUR ---
PT'S SPOUSE HELPED WITH DRESSING CHANGE TO RT FOOT. NEW SOCKS PLACED OVER DRESSING. COLOSTOMY EMPTIED OF 220CC. PT'S SPOUSE CONCERNED WITH PT'S APPETITE, AND DRESSING ORDERS FOR RT FOOT. DR. CHA CALLED AND ORDER RECEIVED FOR CONSULT DR. PRO, DR. RANGEL AND DR. SALDANA. PT DENIES FURTHER NEEDS AT THIS TIME.
[2018-06-04] MEDS: SODIUM BICARBONATE 650 MG TAB PO SCH (18:04)
--- NOTE | 2018-06-04 19:36 | NUR ---
PT IS RESTING WITH HIS AT BEDSIDE. RESPIRATION IS EVEN AND UNLABORED, NO DISTRESS NOTED. BED IN THE LOWEST POSITION, LOCKED, AND CALL LIGHT WITHIN REACH. WILL CONTINUE TO MONITOR.
[2018-06-04] MEDS ORDERED: PHYTONADIONE 10 MG/ML AMP SC NR (19:45)
[2018-06-04] MEDS: LATANOPROST(OPTH) 2.5 ML BTL OP SCH (20:34)
[2018-06-04] MEDS: COLLAGENASE OINTMENT 30 GM TUBE TP SCH (20:36)
--- NOTE | 2018-06-04 22:58 | Diagnostic Imaging Report ---
FOOT RIGHT AP LAT HISTORY: Pain. Ulcer. COMPARISON: Right foot x-ray 05/06/2018, 02/24/2018 FINDINGS: Bones: Persistent severe Charcot arthropathy of the foot with destruction of the midfoot articulations, bone fragmentation. Soft tissues: Large plantar ulcer. Diffuse soft tissue swelling. Diffuse vascular calcifications. IMPRESSION: Severe Charcot arthropathy of the foot with destruction of the midfoot articulations, bone fragmentation. Signed by: DR. Lloyd Carney MD on 06/04/2018 10:55 PM
[2018-06-05] VITALS (7 sets, daily range): BP systolic 90–161; BP diastolic 62–111
--- NOTE | 2018-06-05 00:08 | Consultation ---
DATE OF CONSULTATION: REASON FOR CONSULTATION: Pneumonia. HISTORY OF PRESENT ILLNESS: This patient, who is a 63-year-old male with history of kidney transplant with chronic rejection, immunosuppressive treatment, comes in with shortness of breath for a few weeks, evaluated in the emergency room. He was found to have right upper and middle lobe infiltrate. He is on oxygen and started on IV antibiotic. I am asked to see him. The patient was started on levofloxacin and was already seen by Pulmonary. The patient is currently lying in bed comfortably. He tells me he has shortness of breath for the last few weeks. No fever or chills. Nonproductive cough. He does have history of kidney transplant; chronic kidney disease; diabetes mellitus, on insulin; hypertension; hyperlipidemia; anticoagulation; depression; Charcot foot; diabetic foot ulcer; peripheral vascular disease; chronic diastolic congestive heart failure. SOCIAL HISTORY: There is no smoking, drug abuse, or alcohol abuse. PAST MEDICAL HISTORY: Renal transplant. ALLERGIES: NKA. REVIEW OF SYSTEMS: HEENT: There is no headache, visual changes, or hearing changes. GI: There is no nausea, no vomiting, no diarrhea. CARDIAC: There is no arrhythmia. NEURO: No seizure activity. GENERAL: He is just not feeling well. No specific fever or chills. All other systems within normal limits otherwise. LABORATORY DATA: Reviewed. CAT scan showed multifocal pneumonia involving the right upper lobe, right middle lobe, and bilateral lower lobe. His urine showed gram-negative rods. White count 3.38, hemoglobin of 8, and platelet of 57. MEDICATIONS: He is currently on Proventil, Apresoline, potassium, doxycycline, Prograf 2 mg, prednisone 5 mg, Zosyn, magnesium oxide, Lasix, Santyl, vancomycin, . LABORATORY DATA: White count 3.38, hemoglobin 8, hematocrit 24. Sodium 129, potassium 4.7, creatinine 2.84. His influenza A and B is negative. Urine Legionella is pending. PHYSICAL EXAMINATION: GENERAL: He is currently alert, does not seem to be in acute distress. VITAL SIGNS: Stable. Currently afebrile. HEENT: Normocephalic. Not icteric. NECK: Supple. No JVD. No lymphadenopathy. No thyromegaly. CHEST: Few crackles bilateral. COR: S1 and S2. No S3, S4, or murmur. ABDOMEN: Soft. Bowel sounds present. No tenderness. No hepatosplenomegaly. EXTREMITIES: No edema. SKIN: No rash. JOINTS: No erythema or edema. IMPRESSION: 1. Pneumonia and immunocompromised. Agree with current choice of IV antibiotic. We will discuss with Pulmonary for bronchoscopy. Send for AFB and fungal and PCP Legionella and mycoplasma. We will put him on Zosyn, vancomycin, and doxycycline at renal dose. We will discuss with pharmacy. 2. Chronic kidney disease. 3. Renal transplant. 4. We will follow. MD AMI Toney/MARA /[id number]
[2018-06-05] MEDS: PIPERACILLIN/TAZO 2.25 GM 50 ML IV SCH ×2 (00:41→08:57)
--- NOTE | 2018-06-05 02:39 | Consultation ---
DATE OF CONSULTATION: 06/04/2018 INTERLACER: Dean Barrera DPM. REASON FOR CONSULTATION: Nonhealing ulceration right foot with possible osteomyelitis. HISTORY OF PRESENT ILLNESS: A pleasant 63-year-old male was seen at bedside accompanied by , who is very well known to me from previous admissions and also following up in the office, was admitted secondary to shortness of breath. The patient currently is denying any history of fever, chills, nausea, or vomiting. He has had a nonhealing ulceration to the right lower extremity for at least 4 to 6 months secondary to Charcot deformity. PAST MEDICAL HISTORY: Remarkable for insulin-dependent diabetes, hypertension, peripheral neuropathy, Charcot foot with a nonhealing ulceration to the right lower extremity. PAST SURGICAL HISTORY: Remarkable for right cadaveric kidney, shoulder surgery, cataract surgery, colostomy. ALLERGIES: THE PATIENT DENIES. CURRENT MEDICATIONS: Note listed in the chart including IV Zosyn and vancomycin. SOCIAL HISTORY: Denies any drinking or recreational drug use or alcohol consumption. REVIEW OF SYSTEMS: CARDIAC: Denies any palpitations. Does relate some short shortness of breath GASTROINTESTINAL: Denies any abdominal pain. GENITOURINARY: Denies any hematuria. PHYSICAL EXAMINATION: VITAL SIGNS: Afebrile, pulse rate 101, respirations 18, blood pressure 133/58, O2 saturation 98%. PODIATRIC: Reveals the following vasculature, pedal pulses of both the DP and PT are diminished. Skin temperature is warm and cool to the touch. NEUROLOGIC: Complete loss of protective sensation when utilizing Eckerman-Jose 5.07 monofilament wire. MUSCULOSKELETAL: Muscle mass to be asymmetrical, some swelling noted to the right foot. Some crepitation felt to the midtarsal joint area. DERMATOLOGIC: Reveals ulceration plantar aspect right foot. Granulation tissue noted, tracking down to bone. LABS: Noted as a white blood cell count of 4.3, hemoglobin 7.0, hematocrit 21.4 with a platelet count very low at 36. ASSESSMENT: Charcot foot, possible osteo. PLAN: We will continue IV antibiotics. Continue local wound care with Santyl followed by diluted wet-to-dry Betadine. X-rays will be ordered AP and lateral of the right foot. We will treat the patient conservatively for now. AlexMELANIA Jeff /[id number]
--- NOTE | 2018-06-05 04:40 | Consultation ---
DATE OF CONSULTATION: 06/04/2018 GI Consult Note CONSULTING PHYSICIAN: Raul Herbert MD. REASON FOR CONSULT: 1. Upper abdominal pain for many months. 2. Frequent belching. 3. Early satiation for many months. HISTORY OF PRESENTING ILLNESS: The patient is a 63-year-old male with a host of comorbidities that includes type 2 diabetes, hypertension, status post kidney transplant, congestive heart failure, atrial fibrillation/DVT (on warfarin), status post colostomy due to surgery for ischemic bowel, got admitted with community-acquired pneumonia. Currently being treated under supervision of steam distribution supervisor as well as full service supervisor. GI has been consulted for evaluation of chronic abdominal discomfort, postprandial satiation, frequent belching for many months. Weight is stable. Last upper endoscopy many years ago. No chronic use of NSAIDs. Denies any associated dysphagia. He is a former smoker. No lower GI symptoms. REVIEW OF SYSTEMS: Twelve point system reviewed. Symptomatology is limited as per HPI. PAST MEDICAL HISTORY: 1. Type 2 diabetes. 2. Hypertension. 3. Hyperlipidemia. 4. Status post cadaveric kidney transplant. 5. Congestive heart failure. 6. Diabetic neuropathy. 7. Nephropathy. 8. Diabetic foot ulcer. PAST SURGICAL HISTORY: Kidney transplant. FAMILY HISTORY: Noncontributory. SOCIAL HISTORY: , ex-smoker. Seldom drinks alcohol. HOME MEDICATIONS: Warfarin, tacrolimus, prednisone, potassium chloride, oxycodone/acetaminophen, magnesium oxide, linezolid, latanoprost eye drops, hydralazine, glipizide, furosemide, ferrous sulfate, diphenhydramine, calcitriol, brimonidine. Inpatient medications reviewed as per the MAR. PHYSICAL EXAMINATION: VITAL SIGNS: Temperature 97.6, pulse 101, respiration 18, blood pressure 133/58, oxygen saturation 90% on 2 L of nasal cannula. GENERAL: Appears to be exhausted, drowsy, and lethargic. HEENT: Oral mucosa is moist. Anicteric sclerae. CVS: S1, S2. Regular. LUNGS: Bilateral scattered rales, more pronounced on the right than the left. ABDOMEN: Soft. Colostomy bag, left colostomy with dark brown fecal fluid. Mild palpable epigastric tenderness. No rebound, rigidity, or guarding. Positive bowel sounds. EXTREMITIES: Warm. 1+ pitting leg edema. LABORATORY DATA: WBC 4.36, hemoglobin 7, hematocrit 21.4, MCV 86.6, platelet count 36. Sodium 129, potassium 4.7, chloride 99, bicarb 19, BUN 81, creatinine 2.84, glucose 114. PT 47.6, INR 5.05. CT of the chest showed multifocal pneumonia in the right upper lobe, right middle lobe and bilateral lower lobes, moderate cardiomegaly without pulmonary edema. Incompletely healed fracture of the left clavicle with deformity. ASSESSMENT: 1. The patient's GI symptoms are chronic, dyspeptic as well as multiple features suggestive of irritable bowel syndrome. 2. Pneumonia. 3. Supratherapeutic INR. PLAN: Continue present medical management for pneumonia. We will add PPI and dicyclomine for pain. No endoscopic evaluation at this time. I thank Dr. Herbert for allowing me to participate in the care of this patient. Adán Cabrera MD SA/MARA /[id number]
--- NOTE | 2018-06-05 06:28 | Diagnostic Imaging Report ---
EXAMINATION: CHEST SINGLE (PORTABLE) INDICATION: PNEUMONIA ^[id number] ^[id number] COMPARISON: Chest CT 06/03/2018, chest x-ray 06/02/2018 FINDINGS: AP view TUBES and LINES: None. LUNGS: Patchy bilateral airspace opacities, most prominent in the right upper lobe, increased compared to chest x-ray 06/02/2018. PLEURA: No pleural effusion or pneumothorax. HEART AND MEDIASTINUM: Stable enlargement of the cardiac silhouette. BONES AND SOFT TISSUES: Incompletely healed fracture deformities of the distal left clavicle and left ribs 9-11. Soft tissues are unremarkable. UPPER ABDOMEN: No free air under the diaphragm. IMPRESSION: Multifocal pneumonia, most prominent in the right upper lobe. Signed by: DR. Lloyd Carney MD on 06/05/2018 6:24 AM
[2018-06-05 06:51] LABS: BASOPHILS % 0.3 % (0.0-1.0); HEMATOCRIT 22.7 % (38.2-49.6); HEMOGLOBIN 7.2 g/dL (14.0-18.0); LYMPHOCYTES # (AUTO) 0.8 (1.0-3.2); LYMPHOCYTES % 26.5 % (18.0-39.1); MEAN CORPUSCULAR HEMOGLOBIN 27.8 pg (28-32); MEAN CORPUSCULAR HGB CONC 31.7 g/dL (31-35); MEAN CORPUSCULAR VOLUME 87.6 fL (81-99); MONOCYTES # (AUTO) 0.1 (0.2-0.8); NEUTROPHILS # (AUTO) 2.1 (2.1-6.9); NEUTROPHILS % 69.9 % (38.7-80.0); RED BLOOD COUNT 2.59 x10e6/uL (4.3-5.7); RED CELL DISTRIBUTION WIDTH 15.9 % (11.7-14.4)
[2018-06-05] MEDS: ALBUTEROL SULF 0.083% NEB SOLN 3 ML NEB NEB SCH ×3 (07:00→19:55)
[2018-06-05 07:06] LABS: PLATELET COUNT 33 x10e3/uL (140-360)
[2018-06-05 07:11] LABS: ANION GAP 15.9 mmol/L (8-16); CALCIUM 8.3 mg/dL (8.4-10.2); CREATININE, SERUM 2.99 mg/dL (0.72-1.25); POTASSIUM 4.9 mmol/L (3.5-5.1)
[2018-06-05 07:16] LABS: PROTHROMBIN TIME 50.1 seconds (11.9-14.5)
[2018-06-05 07:23] LABS: INR 5.4
[2018-06-05] MEDS: INSULIN LISPRO 100 UNIT/1 ML 3ML VIAL SQ SCH ×4 (07:30→21:00)
[2018-06-05] MEDS: POTASSIUM CHLORIDE 10MEQ EA PO SCH ×3 (08:00→15:37)
[2018-06-05] MEDS: SODIUM CHLORIDE 0.9% 1000ML 1,000 ML IV SCH (08:57)
[2018-06-05] MEDS: TACROLIMUS 1 MG CAP PO SCH ×2 (08:59→16:49)
[2018-06-05] MEDS: HYDRALAZINE HCL 25 MG TAB PO SCH ×3 (09:00→21:31)
[2018-06-05] MEDS: ZINC ACETATE TOP SCH (09:00)
[2018-06-05] MEDS: FUROSEMIDE 40 MG TAB PO SCH (09:00)
[2018-06-05] MEDS: [UNRECOGNIZED DRUG - OTHER] TOP SCH (09:00)
--- NOTE | 2018-06-05 09:00 | NUR ---
Pt received resting in bed. Alert and oriented x3 but legally blind. On contact isolation for MDRO in urine. Pt with right foot wound, dressing done by . Oriented to staff and surroundings. Encouraged to press call cobos if help needed. All meds given as ordered. Emotional support given. Call cobos within reach. Will monitor
[2018-06-05] MEDS ORDERED: PHYTONADIONE 10 MG/ML AMP SC ONE (10:15)
[2018-06-05 10:44] LABS: BAND NEUTROPHILS % (MANUAL) 9 %; LYMPHOCYTES % (MANUAL) 26 % (19-48); MONOCYTES % (MANUAL) 1 % (3.4-9.0); NEUTROPHILS % (MANUAL) 64 % (40-74); THYROID STIMULATING HORMONE 1.76 uIU/mL (0.350-4.940)
[2018-06-05 10:46] LABS: HYPOCHROMASIA MODERATE; PLATELET ESTIMATE MARKEDLY DECREASED; PLATELET MORPHOLOGY COMMENT NORMAL; RBC MORPHOLOGY COMMENT NORMAL
[2018-06-05 10:57] LABS: FOLATE 5.1 ng/mL (7.0-15.4)
[2018-06-05] MEDS ORDERED: MEROPENEM 500MG/ NS 50ML BAG IV SCH (11:07)
--- NOTE | 2018-06-05 11:35 | Progress Note ---
DATE: 06/05/2018 SUBJECTIVE: The patient is seen at bedside, having some shortness of breath and feeling well. Denying any history of fever, chills, nausea, or vomiting. OBJECTIVE: VITAL SIGNS: Afebrile, pulse rate 101, respirations 18, blood pressure 129/62, and O2 saturation 96%. LABS: White blood cell count of 302, hemoglobin 7.2 with a platelet count of 33. IMAGING: X-ray report is negative for any gas in the tissues. Severe Charcot arthropathy with destruction of the midfoot articulation with bony fragments noted. Ulceration is looking granular, it is tracking down to bone, approximately 3.5 to 4 cm in diameter. ASSESSMENT: Charcot foot with a grade 3/4 ulceration with possible osteo and Charcot deformity. PLAN: Continue IV antibiotics. Continue local wound care with Santyl followed by diluted wet-to-dry in p.m. and ointment in the morning. Continue wearing walking boots when weightbearing. We will continue to follow. MELANIA Taylor/MARA /[id number]
[2018-06-05] MEDS: BRIMONIDINE/TIMOLOL (OPTH SOLN 5 ML DRPETTE OP SCH (12:41)
[2018-06-05] MEDS: MAGNESIUM OXIDE 400 MG TAB PO SCH (13:15)
[2018-06-05] MEDS: CALCITRIOL 0.25 MCG CAP PO SCH (13:15)
[2018-06-05] MEDS: DOXYCYCLINE HYCLATE TABLET 100 MG TAB PO SCH ×2 (13:15→21:31)
[2018-06-05] MEDS: GUAIFENESIN 600 MG TAB PO SCH ×2 (13:15→16:49)
[2018-06-05] MEDS: PREDNISONE 5 MG TAB PO SCH (13:15)
[2018-06-05] MEDS: SODIUM BICARBONATE 650 MG TAB PO SCH ×2 (13:15→16:49)
--- NOTE | 2018-06-05 16:17 | NUR ---
CM SPOKE TO PATIENT REGARDING IMM LETTER. PATIENT WEAK. IMM LETTER GIVEN WITH EXPLANATION BASED ON ANTICIPATED DISCHARGE DATE. ORIGINAL DOCUMENT SIGNED WITH VERBAL CONSENT BY TAVO LOMBARDI CM AND BEDSIDE NURSE CONSTANTINO BUCHANAN AND PLACED IN CHART. COPY OF ORIGINAL DOCUMENT GIVEN TO PATIENT AT BEDSIDE AND PLACED IN CARE TRANSITION FOLDER. CM CONTACT INFORMATION GIVEN TO PATIENT FOR ANY NEEDS OR CONCERNS. PATIENT WITH NO FURTHER QUESTIONS.
[2018-06-05] MEDS ORDERED: BUMETANIDE INJ 0.25MG/ML 4ML VIAL IV ONE (16:45)
[2018-06-05] MEDS: BENZONATATE 100 MG CAP PO SCH ×2 (16:49→21:31)
--- NOTE | 2018-06-05 17:37 | Progress Note ---
DATE: 06/05/2018 SUBJECTIVE: The patient reports some improvement overall. Energy level is better. He barely ate. He was able to keep the food down. No nausea, vomiting. REVIEW OF SYSTEMS: GENERAL: Fatigue, weakness. RESPIRATORY: Occasional cough, expectoration. CVS: No chest pain, palpitation. MEDICATIONS: Reviewed as per MAY. PHYSICAL EXAMINATION: VITAL SIGNS: Temperature 97.4, pulse 96, respirations 18 to 20, blood pressure 129/62 to 90/68, oxygen saturation 95% on 2 L of nasal cannula. GENERAL: No acute distress. HEENT: Oral mucosa is moist. ABDOMEN: Soft. Mild epigastric and right upper quadrant tenderness on deep palpation without rebound, rigidity, or guarding. Positive bowel sounds. Left colostomy with dark brown fecal fluid. LABORATORY DATA: WBC 3.02, hemoglobin 7.2, hematocrit 22.7, platelet count 33. Sodium 133, potassium 4.9, chloride 103, bicarb 19, BUN 95, creatinine 2.99. Iron profile showed a serum iron 88, TIBC 111, iron saturation 79, transferrin 79, ferritin 758/86. IMPRESSION: 1. Dyspepsia. 2. Irritable bowel syndrome. 3. Pneumonia. 4. Supratherapeutic INR. 5. Normocytic anemia, not iron deficiency. Likely anemia of chronic disease. PLAN: Continue treating anemia and pneumonia. The patient has epigastric pain and right upper quadrant pain significantly improved with PPI, which was started yesterday. Hematology consult for anemia, INR is still elevated to 5.40. Adán Cabrera MD SA/MARA /[id number] MTDD
--- NOTE | 2018-06-05 19:40 | NUR ---
Received patient from day nurse, patient is alert, safety and fall precautions maintained as per hospital protocol: bed in lowest position and locked, needed items beside bed, and call cobos placed close to patient. patient is visually impaired and care is concentrated on safety and max assistance, is also at the bed side.patient is currently stable will continue to monitor.
[2018-06-05] MEDS: LATANOPROST(OPTH) 2.5 ML BTL OP SCH (21:31)
[2018-06-05] MEDS: COLLAGENASE OINTMENT 30 GM TUBE TP SCH (21:32)
[2018-06-06] VITALS (8 sets, daily range): BP systolic 120–214; BP diastolic 61–91
[2018-06-06] MEDS: ALBUTEROL SULF 0.083% NEB SOLN 3 ML NEB NEB SCH ×4 (01:00→18:49)
--- NOTE | 2018-06-06 05:29 | NUR ---
Received patient from day nurse, patient is alert, safety and fall precautions maintained as per hospital protocol: bed in lowest position and locked, needed items beside bed, and call cobos placed close to patient. patient is currently stable will continue to monitor.
[2018-06-06 06:36] LABS: LYMPHOCYTES % 46.3 % (18.0-39.1); MEAN CORPUSCULAR HGB CONC 32.4 g/dL (31-35); MEAN CORPUSCULAR VOLUME 86.4 fL (81-99); MONOCYTES # (AUTO) 0.1 (0.2-0.8); MONOCYTES % 3.9 % (4.4-11.3); NEUTROPHILS % 48.8 % (38.7-80.0); RED BLOOD COUNT 2.43 x10e6/uL (4.3-5.7); RED CELL DISTRIBUTION WIDTH 15.8 % (11.7-14.4)
[2018-06-06 06:48] LABS: HEMOGLOBIN 6.8 g/dL (14.0-18.0)
[2018-06-06 06:49] LABS: PLATELET COUNT 26 x10e3/uL (140-360)
[2018-06-06 06:50] LABS: INR 2.53
[2018-06-06 06:52] LABS: ANION GAP 16.5 mmol/L (8-16); CALCIUM 8.3 mg/dL (8.4-10.2); CREATININE, SERUM 2.84 mg/dL (0.72-1.25); POTASSIUM 4.5 mmol/L (3.5-5.1)
--- NOTE | 2018-06-06 07:00 | NUR ---
Patient endorsed to next shift for continuity of care.
[2018-06-06] MEDS: MEROPENEM 500MG/ NS 50ML 50 ML IV SCH (08:17)
[2018-06-06] MEDS: TACROLIMUS 1 MG CAP PO SCH ×2 (08:18→17:18)
[2018-06-06] MEDS: HYDRALAZINE HCL 25 MG TAB PO SCH ×3 (08:18→20:51)
[2018-06-06] MEDS: MAGNESIUM OXIDE 400 MG TAB PO SCH (08:18)
[2018-06-06] MEDS: SODIUM BICARBONATE 650 MG TAB PO SCH ×2 (08:18→17:18)
[2018-06-06] MEDS: BENZONATATE 100 MG CAP PO SCH ×3 (08:18→20:52)
[2018-06-06] MEDS: GUAIFENESIN 600 MG TAB PO SCH ×2 (08:18→17:18)
[2018-06-06] MEDS: DOXYCYCLINE HYCLATE TABLET 100 MG TAB PO SCH ×2 (08:18→20:52)
[2018-06-06] MEDS: FUROSEMIDE 40 MG TAB PO SCH (08:18)
[2018-06-06] MEDS: PREDNISONE 5 MG TAB PO SCH (08:18)
[2018-06-06] MEDS: TRESIBA 20 UNIT SQ SCH (08:19)
[2018-06-06] MEDS: [UNRECOGNIZED DRUG - OTHER] TOP SCH (08:20)
[2018-06-06] MEDS: ZINC ACETATE TOP SCH (08:20)
--- NOTE | 2018-06-06 08:20 | NUR ---
Pt received resting in bed with at bedside. Alert and oriented x3 nut legally blind. Oriented to staff and surroundings. Encouraged to press call cobos if help needed. Pt with right AC saline lock. Emotional support given. Will monitor
[2018-06-06 08:22] LABS: ANISOCYTOSIS SLIGHT; BAND NEUTROPHILS % (MANUAL) 3 %; ELLIPTOCYTE, RBC SLIGHT; EOSINOPHILS % (MANUAL) 2 % (0-7); LYMPHOCYTES % (MANUAL) 46 % (19-48); METAMYELOCYTES % (MANUAL) 1 % (0-0); MONOCYTES % (MANUAL) 2 % (3.4-9.0); NEUTROPHILS % (MANUAL) 46 % (40-74); PLATELET ESTIMATE MARKEDLY DECREASED; PLATELET MORPHOLOGY COMMENT NORMAL; RBC MORPHOLOGY COMMENT ABNORMAL; TOXIC GRANULATION MODERATE
[2018-06-06] MEDS: BRIMONIDINE/TIMOLOL (OPTH SOLN 5 ML DRPETTE OP SCH (08:27)
[2018-06-06] MEDS: INSULIN LISPRO 100 UNIT/1 ML 3ML VIAL SQ SCH ×4 (08:27→20:50)
[2018-06-06] MEDS ORDERED: MEROPENEM 500MG 500 MG in SODIUM CHLORIDE 0.9% 50ML 50 ML IV SCH (09:00)
[2018-06-06] MEDS ORDERED: ACETAMINOPHEN 325 MG TAB PO STA (10:02)
[2018-06-06] MEDS ORDERED: FUROSEMIDE INJ 10 MG/ML 2 ML VIAL IV ONE (10:15)
[2018-06-06] MEDS ORDERED: SODIUM CHLORIDE 0.9% 250ML 250 ML IV ONE (10:30)
--- NOTE | 2018-06-06 11:35 | NUR ---
Pt with hgb 6.8. Two unit of PRBC transfusion ordered. Blood verified by two nurses. Educated regarding s/s to report. Blood transfusion started at 1120. No untoward reaction noted after 15 minutes. Will monitor
[2018-06-06 11:44] LABS: MAGNESIUM 1.7 MG/DL (1.3-2.1); PHOSPHORUS 3.1 MG/DL (2.3-4.7)
--- NOTE | 2018-06-06 13:16 | Progress Note ---
DATE: 06/06/2018 SUBJECTIVE: The patient is accompanied by spouse, feels somewhat depressed, has a pale look on his face secondary to anemia. He is denying any history of fever, chills, nausea, or vomiting. OBJECTIVE: VITAL SIGNS: Afebrile, pulse rate 107, respirations 22, blood pressure 200/80, and O2 saturation 94%. LABS: Show white blood cell count of 2.05, hemoglobin 6.8, hematocrit 21.0 with a platelet count of 26. Ulceration to the right lower extremity better, granulation tissue noted, tracking to bone, negative foul smell. ASSESSMENT: Charcot foot with a grade 3/4 ulcer with possible osteo. PLAN: We will continue IV antibiotics. Continue local wound care. Continue offloading. Continue weightbearing strictly with the [employer] walking boot. We will continue to follow. The patient will also couple units of blood on this day. MELANIA Taylor/MARA /[id number]
--- NOTE | 2018-06-06 14:26 | NUR ---
First unit of blood transfusion completed. No untoward reaction noted. Will start second unit of PRBC transfusion
[2018-06-06] MEDS: FUROSEMIDE INJ 10 MG/ML 2 ML VIAL IV PRN ×2 (15:00→18:26)
--- NOTE | 2018-06-06 15:15 | NUR ---
Second unit of PRBC transfusion started at 1500. Blood Unit number [id number]. Blood verified by two nurses. Educated regarding s/s to report. No untoward reaction noted after 15 minutes. Will monitor
[2018-06-06] MEDS: HYDROCORTISONE SOD SUCCINATE 100 MG VIAL IV SCH ×2 (17:17→22:50)
--- NOTE | 2018-06-06 17:41 | NUR ---
Pt with positive occult stool. Dr. Caballero notified. Protonix IVP q12 hrs ordered. Will follow up
--- NOTE | 2018-06-06 18:25 | NUR ---
Second unit of blood transfusion completed at 1810. Emotional support given. Lasix given post transfusion. Will monitor
--- NOTE | 2018-06-06 19:10 | NUR ---
Patient visited in room during nursing rounds. Patient alert and oriented x3. Patient unable to ambulate due to extreme weakness (especially on BLE). LUQ colostomy present collecting dark brown to black watery stool. Pt on contact isolation for MDRO of urine. Pt legally blind on both eyes. at bedside. Call cobos within reach. Will monitor closely.
[2018-06-06] MEDS: PANTOPRAZOLE 40 MG 10ML VIAL IV SCH (20:51)
[2018-06-06] MEDS: LATANOPROST(OPTH) 2.5 ML BTL OP SCH (20:51)
[2018-06-06] MEDS: COLLAGENASE OINTMENT 30 GM TUBE TP SCH (20:52)
--- NOTE | 2018-06-06 22:59 | Progress Note ---
DATE: SUBJECTIVE: Mr. Rios is feeling a little bit better. There is no new complaints. He is still weak. Shortness of breath is slightly better. PHYSICAL EXAMINATION: GENERAL: He is currently alert, oriented, does not seem to be in acute distress. VITAL SIGNS: Stable. Currently afebrile. HEENT: He is not icteric. NECK: Supple. No JVD. No thyromegaly. CHEST: Few crackles bilaterally. COR: S1, S2. No S3, S4, no murmur. ABDOMEN: Soft. Bowel sounds present. No tenderness. EXTREMITIES: No edema. IMPRESSION: 1. Pneumonia and the patient is immunocompromised. Multifocal pneumonia. The plan is to continue with the current choice of IV antibiotic. Recheck chest x-ray in few days. He is too ill to undergo bronchoscopy. 2. Osteomyelitis of the foot that is following for thrombocytopenia and seems to be slightly better, his platelets 57. 3. Anemia. 4. Chronic kidney disease with creatinine 2.84. Continue with the same antibiotic he is on right now, doxycycline and meropenem. I discussed with critical care. We will follow. MD AMI Toney/MARA /[id number]
[2018-06-07] VITALS (8 sets, daily range): BP systolic 94–153; BP diastolic 51–88
[2018-06-07] MEDS: ALBUTEROL SULF 0.083% NEB SOLN 3 ML NEB NEB SCH ×4 (01:00→19:25)
[2018-06-07] MEDS: HYDROCORTISONE SOD SUCCINATE 100 MG VIAL IV SCH ×3 (06:07→21:31)
[2018-06-07 07:39] LABS: HEMATOCRIT 28.9 % (38.2-49.6); HEMOGLOBIN 9.5 g/dL (14.0-18.0); LYMPHOCYTES # (AUTO) 0.5 (1.0-3.2); LYMPHOCYTES % 44.2 % (18.0-39.1); MEAN CORPUSCULAR HEMOGLOBIN 27.3 pg (28-32); MEAN CORPUSCULAR HGB CONC 32.9 g/dL (31-35); MONOCYTES # (AUTO) 0.1 (0.2-0.8); MONOCYTES % 5.8 % (4.4-11.3); NEUTROPHILS # (AUTO) 0.5 (2.1-6.9); NEUTROPHILS % 48.1 % (38.7-80.0); RED BLOOD COUNT 3.48 x10e6/uL (4.3-5.7); RED CELL DISTRIBUTION WIDTH 15.9 % (11.7-14.4)
[2018-06-07 07:45] LABS: PLATELET COUNT 22 x10e3/uL (140-360)
[2018-06-07 07:57] LABS: INR 1.22
[2018-06-07 08:08] LABS: ALBUMIN 2.5 g/dL (3.5-5.0); ALBUMIN/GLOBULIN RATIO 0.9 (0.8-2.0); CALCIUM 8.8 mg/dL (8.4-10.2); CREATININE, SERUM 2.4 mg/dL (0.72-1.25)
[2018-06-07 08:09] LABS: FIBRINOGEN MAIN LAB 215 mg/dL (204-462)
--- NOTE | 2018-06-07 08:11 | NUR ---
Dr. Rodriguez notified regarding WBC 1.03 and Plt 23. No special order given. Pt is stable. Will monitor
[2018-06-07] MEDS ORDERED: CYANOCOBALAMIN 1,000 MCG TAB PO SCH (09:00)
[2018-06-07] MEDS: TRESIBA 20 UNIT SQ SCH (09:00)
[2018-06-07] MEDS ORDERED: PHYTONADIONE 5 MG TAB PO SCH (09:00)
--- NOTE | 2018-06-07 09:00 | NUR ---
Pt received resting in bed with at bedside. WBC 1.03, Plt 23. Dr. Rodriguez notified. No special order given. Pt placed on neutropenic precautions. All meds given as ordered. Emotional support given. Call cobos within reach. Will monitor
[2018-06-07] MEDS: MEROPENEM 500MG/ NS 50ML 50 ML IV SCH (09:07)
[2018-06-07] MEDS: GUAIFENESIN 600 MG TAB PO SCH ×2 (09:07→17:05)
[2018-06-07] MEDS: FOLIC ACID 1 MG TAB PO SCH (09:07)
[2018-06-07] MEDS: BENZONATATE 100 MG CAP PO SCH ×3 (09:07→21:30)
[2018-06-07] MEDS: SODIUM BICARBONATE 650 MG TAB PO SCH ×2 (09:07→17:05)
[2018-06-07] MEDS: FUROSEMIDE 40 MG TAB PO SCH (09:07)
[2018-06-07] MEDS: PANTOPRAZOLE 40 MG 10ML VIAL IV SCH ×2 (09:07→21:30)
[2018-06-07] MEDS: TACROLIMUS 1 MG CAP PO SCH ×2 (09:07→17:05)
[2018-06-07] MEDS: HYDRALAZINE HCL 25 MG TAB PO SCH ×3 (09:07→21:00)
[2018-06-07] MEDS: MAGNESIUM OXIDE 400 MG TAB PO SCH (09:07)
[2018-06-07] MEDS: DOXYCYCLINE HYCLATE TABLET 100 MG TAB PO SCH ×2 (09:07→21:30)
[2018-06-07] MEDS: ZINC ACETATE TOP SCH (09:08)
[2018-06-07] MEDS: [UNRECOGNIZED DRUG - OTHER] TOP SCH (09:08)
[2018-06-07 09:09] LABS: BAND NEUTROPHILS % (MANUAL) 1 %; LYMPHOCYTES % (MANUAL) 37 % (19-48); MONOCYTES % (MANUAL) 9 % (3.4-9.0); MYELOCYTES % (MANUAL) 1 % (0-0); NEUTROPHILS % (MANUAL) 52 % (40-74)
[2018-06-07 09:10] LABS: PLATELET ESTIMATE MODERATELY DECREASED; PLATELET MORPHOLOGY COMMENT NORMAL; RBC MORPHOLOGY COMMENT NORMAL
[2018-06-07 09:41] LABS: CREATINE KINASE MB 1.3 ng/mL (0-5.0)
[2018-06-07] MEDS: INSULIN LISPRO 100 UNIT/1 ML 3ML VIAL SQ SCH ×4 (09:41→21:31)
[2018-06-07] MEDS: BRIMONIDINE/TIMOLOL (OPTH SOLN 5 ML DRPETTE OP SCH (09:41)
--- NOTE | 2018-06-07 09:41 | NUR ---
Pt c/o chest pain. Mid sternum 4/10 pressure. CE & EKG done. Dr. Herbert notified. No special order given. Will follow up
[2018-06-07] MEDS: ALPRAZOLAM 0.25 MG TAB PO PRN (12:35)
[2018-06-07] MEDS ORDERED: FILGRASTIM 480 MCG/0.8 ML SYRINGE SQ SCH (17:30)
--- NOTE | 2018-06-07 19:05 | NUR ---
Patient visited in room during nursing rounds. Patient alert and oriented x3. Patient unable to ambulate due to extreme weakness (especially on BLE). RUQ colostomy present collecting dark brown to black watery stool. Pt on neutropenic isolation (WBC = 1.04) and contact isolation for MDRO of urine. Pt legally blind on both eyes. at bedside. Call cobos within reach. Will monitor closely.
--- NOTE | 2018-06-07 19:33 | Progress Note ---
DATE: SUBJECTIVE: Mr. Rios seems to be getting better. He is sleeping at present time. No new complaints. His is at the bedside. I have reviewed with her the plan of care. Also reviewed with Dr. Villatoro. She think he is getting better. PHYSICAL EXAMINATION: GENERAL: He is currently sleeping, but is arousable. HEENT: He is not icteric. NECK: Supple. CHEST: Clear. Just a few crackles anteriorly. COR: S1, S2. No murmur. ABDOMEN: Soft. Bowel sounds present. No tenderness. No hepatosplenomegaly. EXTREMITIES: No edema. SKIN: No rash. IMPRESSION: 1. Multilobar pneumonia in a patient who comes in from the community, but he was recently in the hospital and skilled care, so healthcare associated. He is immunocompromise. Continued IV antibiotic. 2. Leukopenia today with thrombocytopenia. Recommend to recheck CBC in the morning. It could be antibiotic or other medication. He is on meropenem. 3. Chronic kidney disease. 4. We will get a chest x-ray. 5. Extremely ill patient. Discussed with the at length and with Dr. Villatoro. We will follow. MD AMI Toney/MARA /[id number]
--- NOTE | 2018-06-07 20:10 | NUR ---
Patient experiencing minor nose bleeds (both nares). Applied cold compress on forehead of patient. Patient states he feels better. Patient and patient's requested not to have breathing treatment tonight. Patient asymptomatic and in no respiratory distress.
--- NOTE | 2018-06-07 20:45 | NUR ---
PEANUT SALTER (Gio) offered patient for a bed bath but patient and refused bath at this time. stated pt needs to sleep and rest at this time.
[2018-06-07] MEDS: COLLAGENASE OINTMENT 30 GM TUBE TP SCH (21:30)
[2018-06-07] MEDS: LATANOPROST(OPTH) 2.5 ML BTL OP SCH (21:30)
--- NOTE | 2018-06-07 23:25 | NUR ---
Received report from tele office that patient had 8 beats of VTACH (non-sustaining) and converted back to A-fib with PVCs. Patient asymptomatic at this time.
[2018-06-08] VITALS (7 sets, daily range): BP systolic 98–187; BP diastolic 51–87
[2018-06-08] MEDS: ALBUTEROL SULF 0.083% NEB SOLN 3 ML NEB NEB SCH ×4 (00:24→19:00)
[2018-06-08] MEDS: DIPHENHYDRAMINE HCL 25 MG CAP PO PRN ×2 (00:35→22:34)
--- NOTE | 2018-06-08 06:00 | NUR ---
Current t-shirt worn by patient with mucus and dried blood. Patient stated he was picking his nose. Pt t-shirt was changed and explained to the need for patient to be clean at all times. and patient agreed on the plan.
--- NOTE | 2018-06-08 06:04 | Diagnostic Imaging Report ---
EXAMINATION: CHEST SINGLE (PORTABLE) INDICATION: ^f/u pneumonia ^[id number] ^[id number] COMPARISON: Chest CT 06/03/2018, chest x-ray 06/05/2018 FINDINGS: AP view TUBES and LINES: None. LUNGS: Patchy bilateral airspace opacities, most prominent in the right upper lobe. PLEURA: No pleural effusion or pneumothorax. HEART AND MEDIASTINUM: Stable enlargement of the cardiac silhouette. BONES AND SOFT TISSUES: Incompletely healed fracture deformities of the distal left clavicle and left ribs 9-11. Soft tissues are unremarkable. UPPER ABDOMEN: No free air under the diaphragm. IMPRESSION: Stable multifocal pneumonia, most prominent in the right upper lobe. Signed by: DR. Lloyd Carney MD on 06/08/2018 6:01 AM
[2018-06-08] MEDS: HYDROCORTISONE SOD SUCCINATE 100 MG VIAL IV SCH ×3 (06:15→22:29)
[2018-06-08 06:33] LABS: BASOPHILS # (AUTO) 0.1 (0.0-0.1); BASOPHILS % 0.8 % (0.0-1.0); EOSINOPHILS % 0.1 % (0.0-6.0); HEMATOCRIT 28.7 % (38.2-49.6); HEMOGLOBIN 9.6 g/dL (14.0-18.0); LYMPHOCYTES % 7.6 % (18.0-39.1); MEAN CORPUSCULAR HEMOGLOBIN 27.7 pg (28-32); MEAN CORPUSCULAR HGB CONC 33.4 g/dL (31-35); MEAN CORPUSCULAR VOLUME 82.9 fL (81-99); MONOCYTES # (AUTO) 0.5 (0.2-0.8); NEUTROPHILS # (AUTO) 10.7 (2.1-6.9); NEUTROPHILS % 84.3 % (38.7-80.0); RED BLOOD COUNT 3.46 x10e6/uL (4.3-5.7); RED CELL DISTRIBUTION WIDTH 16.2 % (11.7-14.4)
[2018-06-08 06:39] LABS: INR 1.12; PROTHROMBIN TIME 14.9 seconds (11.9-14.5)
[2018-06-08 06:50] LABS: PLATELET COUNT 29 x10e3/uL (140-360)
[2018-06-08 06:51] LABS: ANION GAP 16.2 mmol/L (8-16); CALCIUM 8.4 mg/dL (8.4-10.2); CREATININE, SERUM 2.37 mg/dL (0.72-1.25); POTASSIUM 3.2 mmol/L (3.5-5.1)
--- NOTE | 2018-06-08 07:13 | NUR ---
RECEIVED PATIENT RESTING IN BED. NO ACUTE DISTRESS NOTED. AT BEDSIDE. CALL LIGHT WITHIN REACH. BED IN THE LOWEST POSITION.
[2018-06-08] MEDS: INSULIN LISPRO 100 UNIT/1 ML 3ML VIAL SQ SCH ×4 (07:30→22:32)
[2018-06-08 07:57] LABS: BAND NEUTROPHILS % (MANUAL) 9 %; LYMPHOCYTES % (MANUAL) 5 % (19-48); MONOCYTES % (MANUAL) 1 % (3.4-9.0); NEUTROPHILS % (MANUAL) 85 % (40-74)
[2018-06-08 07:58] LABS: HYPOCHROMASIA SLIGHT; MICROCYTOSIS SLIGHT; OVALOCYTES FEW; PLATELET ESTIMATE MARKEDLY DECREASED; PLATELET MORPHOLOGY COMMENT NORMAL; RBC MORPHOLOGY COMMENT ABNORMAL
[2018-06-08] MEDS: TRESIBA 20 UNIT SQ SCH (09:00)
[2018-06-08] MEDS: [UNRECOGNIZED DRUG - OTHER] TOP SCH ×2 (09:00→09:37)
[2018-06-08] MEDS: ZINC ACETATE TOP SCH ×2 (09:00→09:37)
[2018-06-08] MEDS ORDERED: CYANOCOBALAMIN INJ 1,000 MCG/ML VIAL IM ONE (09:15)
[2018-06-08] MEDS ORDERED: POTASSIUM CHLORIDE 10MEQ EA PO ONE (09:15)
[2018-06-08] MEDS: HYDRALAZINE HCL 25 MG TAB PO SCH (09:36)
[2018-06-08] MEDS: TACROLIMUS 1 MG CAP PO SCH ×2 (09:36→16:57)
[2018-06-08] MEDS: MEROPENEM 500MG/ NS 50ML 50 ML IV SCH (09:36)
[2018-06-08] MEDS: DOXYCYCLINE HYCLATE TABLET 100 MG TAB PO SCH (09:36)
[2018-06-08] MEDS: FUROSEMIDE 40 MG TAB PO SCH (09:36)
[2018-06-08] MEDS: BENZONATATE 100 MG CAP PO SCH ×3 (09:36→22:29)
[2018-06-08] MEDS: FOLIC ACID 1 MG TAB PO SCH (09:36)
[2018-06-08] MEDS: GUAIFENESIN 600 MG TAB PO SCH ×2 (09:36→16:57)
[2018-06-08] MEDS: MAGNESIUM OXIDE 400 MG TAB PO SCH (09:36)
[2018-06-08] MEDS: SODIUM BICARBONATE 650 MG TAB PO SCH ×2 (09:36→16:57)
[2018-06-08] MEDS: BRIMONIDINE/TIMOLOL (OPTH SOLN 5 ML DRPETTE OP SCH (09:36)
[2018-06-08] MEDS: CALCITRIOL 0.25 MCG CAP PO SCH (09:37)
--- NOTE | 2018-06-08 13:07 | Consultation ---
DATE OF CONSULTATION: 06/08/2018 SUBJECTIVE: The patient is seen at bedside, accompanied by spouse. The patient is very pale in color and tired with almost no energy. OBJECTIVE: VITAL SIGNS: Afebrile, pulse rate 114, respirations 20, blood pressure 118/88, and O2 saturation 98%. LABS: White blood cell count 12.6, hemoglobin 9.6, hematocrit 28.7, and platelet count now is 29. Ulceration of right foot is stable for now, more than 3.5 to 4 cm in diameter tracking to the tendon and bone. There is decreased cellulitis of the right foot. Negative foul smell. ASSESSMENT: Grade 3/4 ulceration, possible osteo, Charcot foot with neuropathy. PLAN: Continue local wound care. Continue doxycycline p.o. b.i.d. we will try to start the patient on partial weightbearing with the [employer] walking boot. We will continue following up. MELANIA Taylor/MARA /[id number]
[2018-06-08] MEDS ORDERED: POTASSIUM CHLORIDE 20 MEQ TAB CR PO STA (14:13)
[2018-06-08] MEDS: LINEZOLID 600 MG/D5W 300ML 300 ML IV SCH (14:48)
--- NOTE | 2018-06-08 15:56 | NUR ---
CM SPOKE TO PATIENT AND PATIENT AT BEDSIDE REGARDING IMM LETTER. IMM LETTER GIVEN WITH EXPLANATION BASED ON ANTICIPATED DISCHARGE DATE. ORIGINAL SIGNED BY PATIENT POA/ DUE TO PATIENT WEAKNESS AND PLACED IN CHART; COPY OF ORIGINAL DOCUMENT GIVEN TO PATIENT AT BEDSIDE AND PLACED IN CARE TRANSITION FOLDER. CM CONTACT INFORMATION GIVEN TO PATIENT FOR ANY NEEDS OR CONCERNS. PATIENT WITH NO FURTHER QUESTIONS.
[2018-06-08] MEDS ORDERED: SODIUM CHLORIDE 0.9% 1000ML 2,000 ML ONE (15:58)
[2018-06-08] MEDS ORDERED: SODIUM CHLORIDE 0.9% 1000ML 1,000 ML ONE (16:12)
[2018-06-08] MEDS ORDERED: SODIUM CHLORIDE 0.9% 1000ML 2,500 ML IV ONE (16:15)
--- NOTE | 2018-06-08 16:15 | NUR ---
CODE SEPSIS CALLED FOR PATIENT. ER PHYSICIAN IN TO SEE PATIENT. NEW ORDERS RECEIVED.
--- NOTE | 2018-06-08 18:10 | NUR ---
PATIENT C/O SMALL AMOUNT OF BLOOD COMING OUT OF HIS NARES WHILE HE WAS TRYING TO BLOW HIS NOSE. PER THEY ALREADY NOTIFIED MD WHEN HE ROUNDED THIS MORNING, WILL CONTINUE TO MONITOR.
--- NOTE | 2018-06-08 19:07 | NUR ---
REPORT GIVEN TO ONCOMING NURSE, PATIENT IS RESTING IN BED. RESPIRATIONS EVEN AND UNLABORED. NO ACUTE DISTRESS NOTED. FAMILY AT BEDSIDE. CALL LIGHT WITHIN REACH. BED IN THE LOWEST POSITION. BED ALARM ON.
--- NOTE | 2018-06-08 19:20 | NUR ---
Report received and walking rounds complete. Pt resting in bed and in no apparent distress. All safety measures ensured. Pt family member at bedside.
[2018-06-08] MEDS: LATANOPROST(OPTH) 2.5 ML BTL OP SCH (22:29)
[2018-06-08] MEDS: COLLAGENASE OINTMENT 30 GM TUBE TP SCH (22:29)
[2018-06-09] VITALS (9 sets, daily range): BP systolic 139–195; BP diastolic 70–95
[2018-06-09] MEDS: ALBUTEROL SULF 0.083% NEB SOLN 3 ML NEB NEB SCH ×4 (01:00→18:55)
--- NOTE | 2018-06-09 01:04 | Progress Note ---
DATE: 06/08/2018 GI Progress Report. SUBJECTIVE: The patient reports improvement in mid epigastric pain. Tolerating oral diet. Regular bowel movement. Stool was soft, brown today. REVIEW OF SYSTEMS: GENERAL: No fever or chills. He does complain about weakness and fatigability. CVS: No chest pain, palpitation. RESPIRATORY: No cough or expectoration. MEDICATIONS: Inpatient medication list reviewed as per MAY. PHYSICAL EXAMINATION: VITAL SIGNS: Temperature 96.4, pulse 96, respirations 18, blood pressure 99/55, and oxygen saturation 97% on 2 L of nasal cannula. GENERAL: Not in any acute distress. HEENT: Oral mucosa is moist. ABDOMEN: Soft, nondistended. Epigastric tenderness has improved. No rebound, rigidity, or guarding. Positive bowel sounds. LABORATORY DATA: WBC 12.63, hemoglobin 9.6, hematocrit 27.8, and platelet count 29. Sodium 137, potassium 3.2, chloride 103, bicarb 21, BUN 94, creatinine 2.37, glucose 192. Stool occult blood positive. IMPRESSION: 1. Dyspepsia. 2. Irritable bowel syndrome. 3. Pneumonia. 4. Supratherapeutic INR, has been corrected, INR is 1.12 today. 5. Normocytic anemia (not iron deficiency). Anemia of chronic disease. 6. Thrombocytopenia. PLAN: Continue PPI. The patient's upper abdominal discomfort has improved. Hematology consult for anemia and thrombocytopenia. Adán Cabrera MD SA/MARA /[id number]
[2018-06-09] MEDS: LINEZOLID 600 MG/D5W 300ML 300 ML IV SCH ×2 (01:56→14:45)
[2018-06-09] MEDS: HYDROCORTISONE SOD SUCCINATE 100 MG VIAL IV SCH ×3 (05:18→21:10)
[2018-06-09] MEDS: PANTOPRAZOLE 40 MG 10ML VIAL IV SCH (05:36)
[2018-06-09 06:16] LABS: BASOPHILS % 0.1 % (0.0-1.0); EOSINOPHILS % 0.1 % (0.0-6.0); HEMATOCRIT 28.6 % (38.2-49.6); HEMOGLOBIN 9.3 g/dL (14.0-18.0); LYMPHOCYTES % 6.2 % (18.0-39.1); MEAN CORPUSCULAR HEMOGLOBIN 27.8 pg (28-32); MEAN CORPUSCULAR HGB CONC 32.5 g/dL (31-35); MEAN CORPUSCULAR VOLUME 85.4 fL (81-99); MONOCYTES # (AUTO) 0.8 (0.2-0.8); MONOCYTES % 5.1 % (4.4-11.3); NEUTROPHILS # (AUTO) 13.5 (2.1-6.9); NEUTROPHILS % 80.9 % (38.7-80.0); RED BLOOD COUNT 3.35 x10e6/uL (4.3-5.7); RED CELL DISTRIBUTION WIDTH 16.3 % (11.7-14.4)
--- NOTE | 2018-06-09 06:19 | NUR ---
Pt BP previously 195/91. Pt was moved and adjusted in bed and just finished using urinal. Repeat BP 163/90. Pt asymptomatic. Will also inform day shift RN.
[2018-06-09 06:25] LABS: PLATELET COUNT 20 x10e3/uL (140-360)
[2018-06-09 06:33] LABS: INR 1.11; PROTHROMBIN TIME 14.8 seconds (11.9-14.5)
[2018-06-09 06:40] LABS: ANION GAP 16.8 mmol/L (8-16); CREATININE, SERUM 2.38 mg/dL (0.72-1.25); POTASSIUM 3.8 mmol/L (3.5-5.1)
--- NOTE | 2018-06-09 06:52 | NUR ---
RECEIVED PATIENT RESTING IN BED, RESPIRATIONS EVEN AND UNLABORED, NO ACUTE DISTRESS NOTED. FAMILY AT BEDSIDE. CALL LIGHT WITHIN REACH. BED IN THE LOWEST POSITION. BED ALARM ON.
--- NOTE | 2018-06-09 06:58 | NUR ---
Report given to oncoming nurse
--- NOTE | 2018-06-09 07:03 | NUR ---
Called Dr. Rodriguez re: pt lab for platelets decreased from 29 to 20. Reported lab to MD and no new orders given.
[2018-06-09] MEDS: INSULIN LISPRO 100 UNIT/1 ML 3ML VIAL SQ SCH ×4 (07:30→20:28)
[2018-06-09] MEDS: TRESIBA 20 UNIT SQ SCH (08:03)
[2018-06-09] MEDS: TACROLIMUS 1 MG CAP PO SCH ×2 (08:51→16:33)
[2018-06-09] MEDS: FOLIC ACID 1 MG TAB PO SCH (08:51)
[2018-06-09] MEDS: MEROPENEM 500MG/ NS 50ML 50 ML IV SCH (08:51)
[2018-06-09] MEDS: MAGNESIUM OXIDE 400 MG TAB PO SCH (08:51)
[2018-06-09] MEDS: GUAIFENESIN 600 MG TAB PO SCH ×2 (08:51→16:33)
[2018-06-09] MEDS: SODIUM BICARBONATE 650 MG TAB PO SCH ×3 (08:51→20:28)
[2018-06-09] MEDS: BENZONATATE 100 MG CAP PO SCH (08:51)
[2018-06-09] MEDS: BRIMONIDINE/TIMOLOL (OPTH SOLN 5 ML DRPETTE OP SCH (08:51)
[2018-06-09] MEDS: FUROSEMIDE 40 MG TAB PO SCH (08:51)
[2018-06-09] MEDS: [UNRECOGNIZED DRUG - OTHER] TOP SCH (08:52)
[2018-06-09] MEDS: ZINC ACETATE TOP SCH (08:52)
--- NOTE | 2018-06-09 08:56 | NUR ---
DR. KOTHARI IN TO SEE PATIENT. HE WAS NOTIFIED OF PATIENT'S NOSEBLEED FROM YESTERDAY AND TODAY. NO NEW ORDERS.
[2018-06-09 09:02] LABS: BAND NEUTROPHILS % (MANUAL) 3 %; LYMPHOCYTES % (MANUAL) 4 % (19-48); MONOCYTES % (MANUAL) 6 % (3.4-9.0); NEUTROPHILS % (MANUAL) 87 % (40-74)
[2018-06-09 09:03] LABS: ANISOCYTOSIS SLIGHT; HYPOCHROMASIA SLIGHT; POIKILOCYTOSIS SLIGHT
[2018-06-09 09:11] LABS: RBC MORPHOLOGY COMMENT ABNORMAL
[2018-06-09 09:12] LABS: PLATELET ESTIMATE MARKEDLY DECREASED; PLATELET MORPHOLOGY COMMENT NORMAL
--- NOTE | 2018-06-09 10:00 | NUR ---
PATIENT REFUSED TO BE TURNED. HE STATES HELPS HIM TURN.
--- NOTE | 2018-06-09 12:00 | NUR ---
PATIENT LAYING ON BACK, HE REFUSES TO BE TURNED AT THIS TIME. EXPLAINED TO PATIENT THAT HE NEEDS TO BE TURNED TO PREVENT WOUNDS.
--- NOTE | 2018-06-09 12:22 | Progress Note ---
DATE: SUBJECTIVE: The patient is seen at bedside, accompanied by nurse, feeling a little bit better. He is in better spirits, still pale. OBJECTIVE: VITAL SIGNS: Afebrile, pulse rate 101, respirations 18, blood pressure 149/70, and O2 saturation 99%. LABS: Show white blood cell count of 16.6, hemoglobin 9.3 with a platelet count of 20. Ulceration to the right foot is clean, negative foul smell, tracking to bone. Granulation tissue noted approximately 4 to 5 cm in diameter. ASSESSMENT: Grade 3/4 ulceration right foot, Charcot foot, and diabetic neuropathy. PLAN: Continue local wound care with Santyl followed by diluted wet-to-dry Betadine and MeroGel in the morning. Continue offloading. Weightbearing strictly with the [employer] walking boot. We will continue to follow. MELANIA Taylor/MARA /[id number]
--- NOTE | 2018-06-09 19:12 | NUR ---
REPORT GIVEN TO ONCOMING NURSE, WALKING ROUNDS DONE. PATIENT IS RESTING IN BED IN STABLE CONDITION, RESPIRATIONS EVEN AND UNLABORED. CALL LIGHT WITHIN REACH. BED IN THE LOWEST POSITION. BED ALARM ON.
--- NOTE | 2018-06-09 19:15 | NUR ---
patient received awake, alert, lying quietly in bed. patient c/o left shoulder pain. patient repositioned for comfort. patient to be medicated for pain. pm assessment complete. call cobos placed within reach. patient instructed to call for assistance when needed.
[2018-06-09] MEDS: OXYCODONE/ACETAMINOPHEN 5-325 1 EACH TABLET PO PRN (19:30)
--- NOTE | 2018-06-09 19:30 | NUR ---
patient medicated with percocet 5/325 mg po for left shoulder pain 6/10 at this time.
[2018-06-09] MEDS: COLLAGENASE OINTMENT 30 GM TUBE TP SCH (20:29)
[2018-06-09] MEDS: LATANOPROST(OPTH) 2.5 ML BTL OP SCH (20:31)
--- NOTE | 2018-06-10 | NUR ---
bp 185/79 hr 96 call placed to re:elevated bp. awaiting return call.
[2018-06-10] MEDS: ALBUTEROL SULF 0.083% NEB SOLN 3 ML NEB NEB SCH ×4 (01:00→19:00)
[2018-06-10] MEDS: LINEZOLID 600 MG/D5W 300ML 300 ML IV SCH (02:00)
--- NOTE | 2018-06-10 04:00 | NUR ---
no return call received from re:patients elevated bp at 0000. bp at this time 165/79 hr 104. no c/o pain noted at this time.
[2018-06-10 04:38] VITALS: BP 165/79
[2018-06-10] MEDS: PANTOPRAZOLE 40 MG 10ML VIAL IV SCH (05:47)
[2018-06-10] MEDS: HYDROCORTISONE SOD SUCCINATE 100 MG VIAL IV SCH ×3 (05:47→21:52)
[2018-06-10 06:20] LABS: BASOPHILS % 0.2 % (0.0-1.0); HEMATOCRIT 28.7 % (38.2-49.6); HEMOGLOBIN 9.3 g/dL (14.0-18.0); LYMPHOCYTES # (AUTO) 0.9 (1.0-3.2); LYMPHOCYTES % 7.8 % (18.0-39.1); MEAN CORPUSCULAR HEMOGLOBIN 27.4 pg (28-32); MEAN CORPUSCULAR HGB CONC 32.4 g/dL (31-35); MEAN CORPUSCULAR VOLUME 84.7 fL (81-99); MONOCYTES # (AUTO) 0.8 (0.2-0.8); MONOCYTES % 6.9 % (4.4-11.3); NEUTROPHILS # (AUTO) 8.6 (2.1-6.9); NEUTROPHILS % 75.5 % (38.7-80.0); RED BLOOD COUNT 3.39 x10e6/uL (4.3-5.7); RED CELL DISTRIBUTION WIDTH 16.1 % (11.7-14.4)
[2018-06-10 06:24] LABS: PLATELET COUNT 19 x10e3/uL (140-360)
[2018-06-10 06:24] LABS: INR 1.11; PROTHROMBIN TIME 14.8 seconds (11.9-14.5)
[2018-06-10 06:41] LABS: ANION GAP 14.5 mmol/L (8-16); CALCIUM 8.1 mg/dL (8.4-10.2); CREATININE, SERUM 2.17 mg/dL (0.72-1.25); POTASSIUM 3.5 mmol/L (3.5-5.1)
[2018-06-10 07:00] LABS: FERRITIN 857.03 ng/mL (21.81-274.66)
[2018-06-10 07:20] LABS: BAND NEUTROPHILS % (MANUAL) 4 %; EOSINOPHILS % (MANUAL) 1 % (0-7); LYMPHOCYTES % (MANUAL) 7 % (19-48); METAMYELOCYTES % (MANUAL) 1 % (0-0); MONOCYTES % (MANUAL) 7 % (3.4-9.0); MYELOCYTES % (MANUAL) 3 % (0-0); NEUTROPHILS % (MANUAL) 77 % (40-74)
[2018-06-10 07:21] LABS: ANISOCYTOSIS SLIGHT; PLATELET ESTIMATE MODERATELY DECREASED; PLATELET MORPHOLOGY COMMENT NORMAL; RBC MORPHOLOGY COMMENT ABNORMAL
[2018-06-10 08:00] VITALS: BP 136/69
[2018-06-10] MEDS: TRESIBA 20 UNIT SQ SCH (09:00)
[2018-06-10 09:15] VITALS: BP 136/69
--- NOTE | 2018-06-10 09:15 | NUR ---
Pt received resting in bed with at bedside. Alert and oriented x3, legally blind. On contact isolation for MDRO in Urine. Oriented to staff and surroundings. Encouraged to press call cobos if help needed. All meds given as ordered. Emotional support given. Call cobos within reach. Will monitor
[2018-06-10] MEDS: BRIMONIDINE/TIMOLOL (OPTH SOLN 5 ML DRPETTE OP SCH (09:20)
[2018-06-10] MEDS: FUROSEMIDE 40 MG TAB PO SCH (09:20)
[2018-06-10] MEDS: TACROLIMUS 1 MG CAP PO SCH ×2 (09:20→17:38)
[2018-06-10] MEDS: MEROPENEM 500MG/ NS 50ML 50 ML IV SCH (09:20)
[2018-06-10] MEDS: INSULIN LISPRO 100 UNIT/1 ML 3ML VIAL SQ SCH ×4 (09:20→21:52)
[2018-06-10] MEDS: ZINC ACETATE TOP SCH (09:20)
[2018-06-10] MEDS: SODIUM BICARBONATE 650 MG TAB PO SCH ×3 (09:20→21:43)
[2018-06-10] MEDS: CYANOCOBALAMIN 1,000 MCG TAB PO SCH (09:20)
[2018-06-10] MEDS: FOLIC ACID 1 MG TAB PO SCH (09:20)
[2018-06-10] MEDS: [UNRECOGNIZED DRUG - OTHER] TOP SCH (09:20)
[2018-06-10] MEDS: GUAIFENESIN 600 MG TAB PO SCH ×2 (09:20→17:38)
[2018-06-10] MEDS: MAGNESIUM OXIDE 400 MG TAB PO SCH (09:20)
[2018-06-10 12:00] VITALS: BP 146/70
--- NOTE | 2018-06-10 12:21 | Progress Note ---
DATE: 06/10/2018 SUBJECTIVE: The patient is seen at bedside, accompanied by spouse, sitting, trying to eat, having little appetite, still feeling somewhat nauseous and still pale in color. OBJECTIVE: VITAL SIGNS: Afebrile, pulse rate 104, respirations 20, blood pressure 165/79, and O2 saturation 100%. EXTREMITIES: Ulceration to the right foot, stable for now. Granulation tissue noted. Negative foul smell. Has Charcot deformity with some . No gas in the tissue. LABS: Show white blood cell count dropping from the peak of 16.6 to 11.4, hemoglobin 9.3, hematocrit 28.7 with a platelet count that is 19. ASSESSMENT: Grade 3/4 ulceration, Charcot foot, resolving cellulitis. PLAN: We will continue meropenem IV piggyback. Continue local wound care with Santyl and MeroGel. Continue offloading and weightbearing strictly with the [employer] walking boot. We will continue to follow. Ulcer is approximately 4 to 5 cm in diameter. MELANIA Taylor/MARA /[id number]
[2018-06-10] MEDS ORDERED: SODIUM CHLORIDE 0.9% 250ML 500 ML ONE (12:40)
[2018-06-10] MEDS: CALCITRIOL 0.25 MCG CAP PO SCH (12:52)
[2018-06-10] MEDS: ALPRAZOLAM 0.25 MG TAB PO PRN (12:54)
--- NOTE | 2018-06-10 14:10 | NUR ---
DC PLAN: DISCUSSED PT IN MDR / ROUNDS TODAY. PLTS 19; PLATELETS TO BE GIVEN. PHYSICAL THERAPY RECOMMENDED SNF. CONT WOUND CARE, IV ABX
--- NOTE | 2018-06-10 14:20 | NUR ---
Pt with Plt 19. One unit Plt transfusion ordered By Dr. Alannah Rodriguez. Platelet verified by two nurses. Blood unit number [id number]. Educated regarding s/s to report. Transfusion started at 1405. No untoward reaction noted after 15 minutes. Will monitor
--- NOTE | 2018-06-10 14:50 | NUR ---
Platelet transfusion completed. No untoward reaction noted. Will monitor.
--- NOTE | 2018-06-10 14:59 | NUR ---
Nutrition Intervention Note RD Recommendation(s) for Physician: - Continue current diet as ordered - Rec Glucerna TID to promote PO intake - Rec appetite stimulant if medically appropriate Plan of Care: RD following, monitoring for tolerance and adequacy Nutrition reason for involvement: LOS RD Assessment 06/10 - Chart reviewed. Labs and meds reviewed. 63yo M, who was admitted for SOB. CXR showed PNA. BG 235 - 282 on steroid. Visited pt in the room. Pt was sleeping; on bedside to provide hx. Per , pt has had poor appetite and she has been encouraging PO intake on bedside. RN recorded 50-75% meal intake for yesterday. Pt drank 100% of Glucerna ordered. No complains of nausea or vomiting. Pt denied any chewing or swallowing difficulty. Per , pt has gradually lost ~15 - 20lbs within the last year. No fat or muscle loss noted upon NFPA. At this time, pt doesn't meet criteria for malnutrition. RD rec to increase Glucerna to 3x a day, was agreeable with plan. Will cotinue to monitor and follow. 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 Will re-evaluate at follow-up as appropriate. Energy intake: <75% of estimated energy requirements for >7 days Weight loss: ~7.8% weight loss in a year Fat loss: N/A Muscle loss: N/A Supporting Evidence: Fluid accumulation: On lasix Functional Status: measurably reduced Nutrition Prescription (Diet Order): cardiac/ ADA diet, Glucerna BID Estimated Nutritional Needs: Calories: 2050 - 2460kcal(25-30kcal/kg/d) Weight used: CBW Protein : 66 - 98g (0.8-1.2g/kg/d) Weight used: CBW Diet Adequacy: Meeting calorie needs, Not meeting protein needs Diet Education Needs Assessment: Diet education indicated, but patient not appropriate for education at this time. Nutrition Care Level: low Nutrition Diagnosis: Inadequate oral intake related to current medical condition as evidenced by poor appetite. Goal: Patient will meet 75-100% of estimated needs by follow up Progress: Some progress Interventions: Carbohyrate/ cardiac diet, Commercial beverage Monitoring/Evaluation: Total energy intake, Total protein intake, Modified diet, Liquid supplement, Weight change Signed: Suyapa Rose MS, RD, LD
[2018-06-10 16:00] VITALS: BP 173/74
--- NOTE | 2018-06-10 17:18 | NUR ---
WOUND CARE SCREEN- PUP LOS: DAY 7 CURRENT MERCY SCORE: 11 PUP: MODERATE ALTERNATING PRESSURE AIR MATTRESS: PRESENT AGE:[age] YEAR OLD MALE PUMP MATCH WEIGHT: YES HOB: 30 DEGREES PATIENT VISIT/SKIN CHECK: RECEIVED PT LYING ON RIGHT LATERAL POSITION IN BED, AT BEDSIDE, PT ASSIST WITH TURNING, WITH COLOSTOMY TO RIGHT LOWER ABDOMEN INTACT. SKIN ASSESSMENT DONE. NO SKIN BREAK DOWN OR ULCER IDENTIFIED. RECOMMENDATION: CONTINUE WITH CURRENT TREATMENT PLAN. Addendum: 06/10/18 at 1745 by Alvin Neves RN Amended: Links added.
--- NOTE | 2018-06-10 18:24 | Progress Note ---
DATE: 06/10/2018 SUBJECTIVE: The patient reports no abdominal pain. Tolerating oral diet. Still feeling very weak. Could not cooperate with physical therapy. REVIEW OF SYSTEMS: GENERAL: No fever or chills. Complains about weakness and easy fatigability. CVS: No chest pain or palpitation. RESPIRATORY: No cough or expectoration. INPATIENT MEDICATION LIST: Reviewed as per MAY. PHYSICAL EXAMINATION: VITAL SIGNS: Temperature 97, pulse 97, respirations 18, blood pressure 146/70, and oxygen saturation 98% on room air. GENERAL: Appears weak, lethargic. HEENT: Oral mucosa is moist. Anicteric sclerae. ABDOMEN: Soft. No palpable epigastric tenderness. No mass or hernia. Positive bowel sounds. Colostomy bag with semi solid brown stool. LABS: WBCs down to 11.44 from 16.61, hemoglobin 9.3, hematocrit 27.7, and platelet count 19. Sodium 134, potassium 3.5, chloride 102, bicarb 21, BUN 76, creatinine 2.17 down from 2.38, and glucose 279. IMPRESSION: 1. Pneumonia. 2. Irritable bowel syndrome. 3. Dyspepsia. 4. Supratherapeutic INR, is now 1.11. 5. Thrombocytopenia. 6. Normocytic anemia. PLAN: 1. Continue antibiotics for pneumonia, the patient is getting meropenum. Continue PPI. Dyspepsia has significantly improved. 2. Hematology/Oncology consult for evaluation of thrombocytopenia and anemia. The patient does not have anemia from GI blood loss. Adán Cabrera MD SA/MARA /[id number]
[2018-06-10] MEDS: EPOETIN ALFA 10000 UNIT/ML VIAL SC SCH (18:34)
--- NOTE | 2018-06-10 19:10 | NUR ---
Patient visited in room during nursing rounds. Patient alert and oriented x3. Patient unable to ambulate due to extreme weakness (especially on BLE). RUQ colostomy present collecting dark brown to black watery stool. Pt on contact isolation for MDRO of urine. Pt legally blind on both eyes. at bedside. Call cobos within reach. Will monitor closely.
[2018-06-10 19:20] VITALS: BP 155/89
[2018-06-10] MEDS: LATANOPROST(OPTH) 2.5 ML BTL OP SCH (21:43)
[2018-06-10] MEDS: OXYCODONE/ACETAMINOPHEN 5-325 1 EACH TABLET PO PRN (21:43)
[2018-06-10] MEDS: COLLAGENASE OINTMENT 30 GM TUBE TP SCH (21:43)
[2018-06-11 00:22] VITALS: BP 180/81
[2018-06-11] MEDS: ALBUTEROL SULF 0.083% NEB SOLN 3 ML NEB NEB SCH ×4 (01:00→19:00)
[2018-06-11 04:25] VITALS: BP 155/85
[2018-06-11 06:14] LABS: BASOPHILS % 0.2 % (0.0-1.0); HEMOGLOBIN 8.5 g/dL (14.0-18.0); LYMPHOCYTES # (AUTO) 0.9 (1.0-3.2); LYMPHOCYTES % 6.6 % (18.0-39.1); MEAN CORPUSCULAR HEMOGLOBIN 28.2 pg (28-32); MEAN CORPUSCULAR VOLUME 83.1 fL (81-99); MONOCYTES % 7.7 % (4.4-11.3); NEUTROPHILS # (AUTO) 9.7 (2.1-6.9); NEUTROPHILS % 74.2 % (38.7-80.0); PLATELET COUNT 59 x10e3/uL (140-360); RED BLOOD COUNT 3.01 x10e6/uL (4.3-5.7)
[2018-06-11] MEDS: PANTOPRAZOLE 40 MG 10ML VIAL IV SCH (06:15)
[2018-06-11] MEDS: HYDROCORTISONE SOD SUCCINATE 100 MG VIAL IV SCH ×3 (06:15→22:00)
[2018-06-11 06:29] LABS: INR 1.13
[2018-06-11 06:32] LABS: CALCIUM 8.2 mg/dL (8.4-10.2); CREATININE, SERUM 2.02 mg/dL (0.72-1.25)
[2018-06-11 08:00] VITALS: BP 174/89
[2018-06-11 08:55] LABS: BAND NEUTROPHILS % (MANUAL) 3 %; LYMPHOCYTES % (MANUAL) 6 % (19-48); METAMYELOCYTES % (MANUAL) 5 % (0-0); MONOCYTES % (MANUAL) 5 % (3.4-9.0); MYELOCYTES % (MANUAL) 4 % (0-0); PROMYELOCYTES % (MANUAL) 1 % (0-0)
[2018-06-11 08:56] LABS: ANISOCYTOSIS SLIGHT; HYPOCHROMASIA SLIGHT; PLATELET ESTIMATE MODERATELY DECREASED; PLATELET MORPHOLOGY COMMENT NORMAL; RBC MORPHOLOGY COMMENT NORMAL
[2018-06-11 09:00] VITALS: BP 174/89
[2018-06-11] MEDS: [UNRECOGNIZED DRUG - OTHER] TOP SCH (09:00)
[2018-06-11] MEDS: ZINC ACETATE TOP SCH (09:00)
[2018-06-11] MEDS: TRESIBA 20 UNIT SQ SCH (09:00)
--- NOTE | 2018-06-11 09:00 | NUR ---
Pt received resting in bed with at bedside. Alert and oriented x3 but legally blind. Emotional support given. Call cobos within reach. Will monitor
[2018-06-11] MEDS: CYANOCOBALAMIN 1,000 MCG TAB PO SCH (09:01)
[2018-06-11] MEDS: MEROPENEM 500MG/ NS 50ML 50 ML IV SCH (09:01)
[2018-06-11] MEDS: SODIUM BICARBONATE 650 MG TAB PO SCH ×3 (09:01→21:50)
[2018-06-11] MEDS: MAGNESIUM OXIDE 400 MG TAB PO SCH (09:01)
[2018-06-11] MEDS: FUROSEMIDE 40 MG TAB PO SCH (09:01)
[2018-06-11] MEDS: TACROLIMUS 1 MG CAP PO SCH ×2 (09:01→16:29)
[2018-06-11] MEDS: GUAIFENESIN 600 MG TAB PO SCH ×2 (09:01→16:28)
[2018-06-11] MEDS: BRIMONIDINE/TIMOLOL (OPTH SOLN 5 ML DRPETTE OP SCH (09:01)
[2018-06-11] MEDS: FOLIC ACID 1 MG TAB PO SCH (09:01)
[2018-06-11] MEDS: INSULIN LISPRO 100 UNIT/1 ML 3ML VIAL SQ SCH ×4 (09:02→22:09)
[2018-06-11 09:32] LABS: NEUTROPHILS % (MANUAL) 76 % (40-74)
--- NOTE | 2018-06-11 11:20 | Diagnostic Imaging Report ---
EXAM: CHEST SINGLE (PORTABLE), AP Portable DATE: 06/11/2018 Time stamp on exam: 10:49 AM INDICATION: Follow-up pneumonia COMPARISON: 06/08/2018 chest x-ray and 06/03/[address] FINDINGS: LINES/TUBES: None LUNGS: Resolving right upper lobe, right middle lobe and left lower lobe patchy pneumonia. PLEURA: No effusions or pneumothorax. HEART AND MEDIASTINUM: Normal size and contour. BONES AND SOFT TISSUES: No acute findings. IMPRESSION: Resolving multifocal pneumonia. Signed by: Dr. Phil Housre DO on 06/11/2018 11:16 AM
[2018-06-11] MEDS ORDERED: POTASSIUM CHLORIDE 20 MEQ TAB CR PO ONE (14:30)
[2018-06-11] MEDS ORDERED: POTASSIUM CHLORIDE 10MEQ EA PO SCH (14:45)
--- NOTE | 2018-06-11 14:49 | Progress Note ---
DATE: 06/11/2018 SUBJECTIVE: The patient is seen at bedside, accompanied by spouse, in little better spirits on this date. He is denying any history of fever, chills, nausea, or vomiting. OBJECTIVE: VITAL SIGNS: Afebrile, pulse rate 110, respirations , blood pressure 174/89, and O2 saturation 100. EXTREMITIES: Ulceration to the right lower extremity healing slowly, tracking down to bone, granular fibrotic base with negative foul smell. Some crepitation felt to the midfoot with pedal pulses palpable. LABS: White blood cell count of 13.0, hemoglobin 8.5, hematocrit 25.0 with a platelet count of 59. ASSESSMENT: Charcot foot, grade 3/4 ulceration, right foot with possible osteo. PLAN: We will continue local wound care with Santyl followed by diluted wet-to-dry Betadine and MeroGel. Continue meropenem IV. Continue offloading and weightbearing strictly with the OrthoTECH walking boot. We will continue to follow. MELANIA Taylor/MARA /[id number]
[2018-06-11] MEDS ORDERED: POTASSIUM CHLORIDE 10MEQ EA PO ONE ×2 (15:00→16:00)
[2018-06-11 16:00] VITALS: BP 167/97
--- NOTE | 2018-06-11 19:05 | NUR ---
Patient visited in room during nursing rounds. Patient alert and oriented x3. Patient unable to ambulate due to extreme weakness (especially on BLE). RUQ colostomy present collecting dark brown watery stool. Pt on contact isolation for MDRO of urine. Pt legally blind on both eyes. at bedside. Call cobos within reach. Will monitor closely.
--- NOTE | 2018-06-11 19:20 | NUR ---
Pt resting comfortably in bed. Call cobos within reach. handoff given to oncoming shift
[2018-06-11 20:00] VITALS: BP 180/82
[2018-06-11] MEDS: LATANOPROST(OPTH) 2.5 ML BTL OP SCH (21:50)
[2018-06-11] MEDS: COLLAGENASE OINTMENT 30 GM TUBE TP SCH (21:50)
[2018-06-11] MEDS: OXYCODONE/ACETAMINOPHEN 5-325 1 EACH TABLET PO PRN (22:00)
[2018-06-12] VITALS (9 sets, daily range): BP systolic 150–194; BP diastolic 67–91
--- NOTE | 2018-06-12 00:37 | Progress Note ---
DATE: 06/11/2018 SUBJECTIVE: The patient reports no abdominal pain. Tolerating oral diets. He is still feeling weak and lethargic. REVIEW OF SYSTEMS: GENERAL: No fever or chills. CVS: No chest pain or palpitation. RESPIRATORY: Complains of cough with occasional sputum. MEDICATIONS: Reviewed per the MAR, he is on pantoprazole and tacrolimus along with other medication. He is still getting meropenem. PHYSICAL EXAMINATION: VITAL SIGNS: Temperature 97.8, pulse from 96 to 104, respirations 18, blood pressure 180/82 to 167/97, and oxygen saturation 100% on 2 L of nasal cannula. GENERAL: Not in any acute distress. HEENT: Oral mucosa is moist. ABDOMEN: Soft, nondistended. No palpable epigastric tenderness. Colostomy bag with greenish brown semisolid stool. Bowel sounds present. LABORATORY DATA: WBC has gone up to 13.00 from 11.44, hemoglobin down to 8.5 from 9.3, hematocrit 25, and platelet count 59. Sodium 134, potassium 3.0, chloride 102, bicarb 23, BUN 69, creatinine 2.20 down from 2.17, and glucose 232. Chest x-ray showed resolving multifocal pneumonia. IMPRESSION: 1. Pneumonia, improving on IV antibiotic. 2. Dyspepsia and epigastric pain has improved. 3. Thrombocytopenia with normocytic anemia. PLAN: Continue treating anemia with antibiotic. The patient's dyspepsia has responded to PPI. Hematology consult for thrombocytopenia and anemia. The patient's hemoglobin has dropped, although the patient has no gross GI bleeding. I do not suspect a drop in hemoglobin from any source of blood loss in the GI tract. Adán Cabrera MD SA/MARA /[id number]
[2018-06-12] MEDS: ALBUTEROL SULF 0.083% NEB SOLN 3 ML NEB NEB SCH ×4 (01:00→19:00)
--- NOTE | 2018-06-12 01:14 | NUR ---
Patient's BP elevated at 195/109. Patient asymptomatic. Dr. Herbert 1st call attempt to possibly obtain order. Left voice message. Awaiting on MD call back.
--- NOTE | 2018-06-12 01:35 | NUR ---
2nd call attempt for Dr. Herbert to report very high BP (195/109). No answer from . Awaiting telecommunications linesworker back.
[2018-06-12 06:14] LABS: BASOPHILS # (AUTO) 0.1 (0.0-0.1); BASOPHILS % 0.9 % (0.0-1.0); EOSINOPHILS % 0.1 % (0.0-6.0); HEMATOCRIT 28.3 % (38.2-49.6); HEMOGLOBIN 9.3 g/dL (14.0-18.0); LYMPHOCYTES % 6.7 % (18.0-39.1); MEAN CORPUSCULAR HEMOGLOBIN 27.6 pg (28-32); MEAN CORPUSCULAR HGB CONC 32.9 g/dL (31-35); MONOCYTES # (AUTO) 1.1 (0.2-0.8); MONOCYTES % 7.3 % (4.4-11.3); NEUTROPHILS # (AUTO) 10.7 (2.1-6.9); NEUTROPHILS % 71.9 % (38.7-80.0); PLATELET COUNT 61 x10e3/uL (140-360); RED BLOOD COUNT 3.37 x10e6/uL (4.3-5.7)
[2018-06-12] MEDS: PANTOPRAZOLE 40 MG 10ML VIAL IV SCH (06:16)
[2018-06-12] MEDS: HYDROCORTISONE SOD SUCCINATE 100 MG VIAL IV SCH ×3 (06:16→21:05)
[2018-06-12 06:29] LABS: INR 1.06; PROTHROMBIN TIME 14.3 seconds (11.9-14.5)
[2018-06-12 06:44] LABS: ALBUMIN 2.4 g/dL (3.5-5.0); ANION GAP 14.5 mmol/L (8-16); CALCIUM 8.3 mg/dL (8.4-10.2); CREATININE, SERUM 1.95 mg/dL (0.72-1.25); POTASSIUM 3.5 mmol/L (3.5-5.1)
[2018-06-12 07:02] LABS: ANISOCYTOSIS SLIGHT; BAND NEUTROPHILS % (MANUAL) 10 %; EOSINOPHILS % (MANUAL) 1 % (0-7); LYMPHOCYTES % (MANUAL) 2 % (19-48); METAMYELOCYTES % (MANUAL) 4 % (0-0); MONOCYTES % (MANUAL) 1 % (3.4-9.0); NEUTROPHILS % (MANUAL) 82 % (40-74); RBC MORPHOLOGY COMMENT ABNORMAL; TOXIC GRANULATION MODERATE
[2018-06-12 07:03] LABS: PLATELET ESTIMATE MARKEDLY DECREASED; PLATELET MORPHOLOGY COMMENT NORMAL
[2018-06-12] MEDS: INSULIN LISPRO 100 UNIT/1 ML 3ML VIAL SQ SCH ×4 (07:30→20:33)
--- NOTE | 2018-06-12 08:00 | NUR ---
PATIENT IS AWAKE AND IN STABLE CONDITION WITH NO S/S OF RESPIRATORY DISTRESS. PATIENT DENIES ANY PAIN. TELEMETRY APPLIED. PATIENT HAS A COLOSTOMY. DRESSING TO RIGHT FOOT IS INTACT AND DRY. PRESENT IN THE ROOM. CALL LIGHT IS WITHIN REACH, PATIENT INSTRUCTED TO CALL FOR ASSISTANCE NEEDED.
[2018-06-12] MEDS: [UNRECOGNIZED DRUG - OTHER] TOP SCH (09:00)
[2018-06-12] MEDS: ZINC ACETATE TOP SCH (09:00)
[2018-06-12] MEDS ORDERED: HYDRALAZINE HCL 25 MG TAB PO PRN (09:00)
[2018-06-12] MEDS: BRIMONIDINE/TIMOLOL (OPTH SOLN 5 ML DRPETTE OP SCH (09:06)
[2018-06-12] MEDS: GUAIFENESIN 600 MG TAB PO SCH ×2 (09:12→17:30)
[2018-06-12] MEDS: SODIUM BICARBONATE 650 MG TAB PO SCH ×3 (09:12→20:33)
[2018-06-12] MEDS: TACROLIMUS 1 MG CAP PO SCH ×2 (09:12→17:30)
[2018-06-12] MEDS: MEROPENEM 500MG/ NS 50ML 50 ML IV SCH (09:12)
[2018-06-12] MEDS: FOLIC ACID 1 MG TAB PO SCH (09:12)
[2018-06-12] MEDS: CYANOCOBALAMIN 1,000 MCG TAB PO SCH (09:12)
[2018-06-12] MEDS: FUROSEMIDE 40 MG TAB PO SCH (09:13)
[2018-06-12] MEDS: MAGNESIUM OXIDE 400 MG TAB PO SCH (09:13)
[2018-06-12] MEDS ORDERED: NIFEDIPINE CR 30 MG TAB PO NR (09:30)
[2018-06-12] MEDS: CALCITRIOL 0.25 MCG CAP PO SCH (10:05)
[2018-06-12] MEDS: TRESIBA 20 UNIT SQ SCH (10:05)
--- NOTE | 2018-06-12 10:15 | NUR ---
DIRECTOR OF SPOKE WITH DR CHA REGARDING PLAN DR CHA STATES HE WANTS TO "MONITOR PT OVER THE WEEKEND. MAY NEED BONE MARROW ASPIRATION" DR CHA STATES HE MAY NEED LTAC BUT WOULD NOT GIVE ORDER PLAN: WILL F/U WITH DR CHA FOR PLAN ON FRIDAY
--- NOTE | 2018-06-12 10:53 | NUR ---
ASSESSMENT: Spiritual distress Pt's looking to thai for hope. Pt sleeping soundly. Pt's states they are non-congregational [place]anda[place]. Pt's states his health has been declining since transplant. Concerning earlier transplant pt's states, "We were looking forward to a alliance party but...it never came" and "it's been one thing after another." Pt's states they receive emotional/spiritual support from adventism friends and family. Intervention: Provided empathic listening. Facilitated illness review. Provided prayer. Provided information on how to reach spun paste machine operator, if needed. Outcome: Pt's expressed appreciation for visit. Will follow as able. DIPAK RODRIGUEZ [employer] Spiritual Care Department O: [phone] Pager: [phone] ([phone] number calling from)
--- NOTE | 2018-06-12 15:35 | Consultation ---
DATE OF CONSULTATION: 06/12/2018 SUBJECTIVE: The patient is seen at bedside, somewhat better, still somewhat weak and has a very pale look on his face and body. OBJECTIVE: VITALS: Afebrile, pulse rate 121, respirations 20, blood pressure 163/91, and O2 saturation 98%. EXTREMITIES: Ulceration of right foot continues to improve very slowly. Charcot foot deformity. Some granulation tissue noted tracking down to the plantar fascia and bone. LABORATORY DATA: Labs show white blood cell count of 14.8, hemoglobin 9.3, hematocrit 28.3 with platelet count of 61. ASSESSMENT: Charcot foot with a grade 3/4 ulceration with possible osteo. PLAN: We will continue meropenem IV piggyback. Continue local wound care with Santyl followed by diluted wet-to-dry Betadine evening and MeroGel in the morning. Continue offloading as best as possible, walking strictly with the aid of the plista walking boot. We will continue to follow. MELANIA Taylor/MARA /[id number]
--- NOTE | 2018-06-12 16:36 | Progress Note ---
DATE: 06/12/2018 SUBJECTIVE: Still having some cough, no swelling. Wound care is being done on his right foot with a deep ulcer. OBJECTIVE: VITAL SIGNS: Temperature heart rate 121, blood pressure 163/91. CHEST: Minimal diminished breath sounds at the bases. GENERAL: No distress. Appears frail. EXTREMITIES: No edema. SKIN: Deep ulcer in the right foot plantar aspect, which is not probed. LABORATORY DATA: Creatinine 1.95 close to baseline, BUN 67, serum CO2 23, and K 3.5. ASSESSMENT: 1. Status post donor renal transplant. 2. Chronic kidney disease, transplant. 3. History of diabetes, end-organ damage, and end-stage renal disease that led up to this. 4. Pneumonia, which is gradually improving. 5. Anemia, multifactorial. 6. Foot ulcer. 7. History of chronic intermittent fluid overload with last x-ray showing mostly pneumonia and not much fluid. PLAN: 1. From renal stand point, continue same immunosuppression. There was some question about dialysis, I would hold off on that. 2. Acidosis, seems to be reasonably well compensated on current p.o. bicarbonate. 3. A.m. chemistries. 4. Check Prograf levels. 5. We will follow along. MD VIVIENNE MeyerK/CRUZL /[id number]
[2018-06-12] MEDS: EPOETIN ALFA 10000 UNIT/ML VIAL SC SCH (17:30)
[2018-06-12] MEDS: OXYCODONE/ACETAMINOPHEN 5-325 1 EACH TABLET PO PRN (18:44)
--- NOTE | 2018-06-12 19:15 | NUR ---
patient received awake, alert, lying quietly in bed. no c/o pain noted at this time. pm assessment complete. patient instructed to call for assistance when needed.
[2018-06-12] MEDS: COLLAGENASE OINTMENT 30 GM TUBE TP SCH (20:33)
[2018-06-12] MEDS: LATANOPROST(OPTH) 2.5 ML BTL OP SCH (20:38)
--- NOTE | 2018-06-12 21:00 | NUR ---
Colostomy full of soft brown stool. Colostomy emptied at this time.
--- NOTE | 2018-06-12 22:57 | Progress Note ---
DATE: 06/12/2018 SUBJECTIVE: The patient reports no abdominal pain. Tolerating oral feeds. Regular BM, he has a colostomy. REVIEW OF SYSTEMS: GENERAL: No fever or chills. CVS: No chest pain or palpitations. RESPIRATORY: Cough has improved, it is less productive now. MEDICATIONS: Reviewed as per MAR. He is on pantoprazole, tacrolimus along with intravenous meropenem. He is also on other medications. PHYSICAL EXAMINATION: VITAL SIGNS: Temperature 96.7, pulse 92, respirations 18, blood pressure 158/71, oxygen saturation 99% on room air. GENERAL: Not in any acute distress. Lethargic and appears quite weak. Oral mucosa is moist. ABDOMEN: Soft, nondistended. No epigastric tenderness. No mass or hernia. Colostomy bag with semi-solid brown stool. LABS: WBC has gone up to 14.86 from 13.0, hemoglobin 9.3 from 8.5, hematocrit 28.3, platelet count 61. Sodium 137, potassium 3.5, chloride 103, bicarb 23, BUN 67, creatinine 1.95 which is down from 2.02. His stool occult blood was positive. IMPRESSION: 1. Pneumonia, improving on IV antibiotic. 2. Dyspepsia and epigastric pain have improved. 3. Thrombocytopenia. Again normocytic anemia, this anemia is not due to any GI blood loss, although the patient's stool occult blood is positive. The patient has had supratherapeutic INR being on warfarin. His stool guaiac can be positive if somebody is on anticoagulants. PLAN: Dyspepsia resolved. Continue treating dyspepsia with a PPI daily. Hematology consult for thrombocytopenia and anemia. We will continue to follow him clinically. Rest of the care as per primary team. Adán Cabrera MD SA/MARA /[id number]
[2018-06-12] MEDS: ALPRAZOLAM 0.25 MG TAB PO PRN (23:25)
[2018-06-13] MEDS: ALBUTEROL SULF 0.083% NEB SOLN 3 ML NEB NEB SCH ×4 (01:00→19:00)
[2018-06-13] MEDS: NIFEDIPINE CR 30 MG TAB PO SCH ×2 (05:00→16:57)
[2018-06-13 05:05] VITALS: BP 161/100
[2018-06-13] MEDS: HYDROCORTISONE SOD SUCCINATE 100 MG VIAL IV SCH (05:06)
[2018-06-13] MEDS: PANTOPRAZOLE 40 MG 10ML VIAL IV SCH (05:06)
[2018-06-13 05:35] LABS: BASOPHILS # (AUTO) 0.1 (0.0-0.1); BASOPHILS % 0.5 % (0.0-1.0); EOSINOPHILS % 0.1 % (0.0-6.0); HEMOGLOBIN 9.2 g/dL (14.0-18.0); LYMPHOCYTES # (AUTO) 0.9 (1.0-3.2); LYMPHOCYTES % 6.5 % (18.0-39.1); MEAN CORPUSCULAR HEMOGLOBIN 27.3 pg (28-32); MEAN CORPUSCULAR HGB CONC 32.9 g/dL (31-35); MEAN CORPUSCULAR VOLUME 83.1 fL (81-99); MONOCYTES # (AUTO) 0.6 (0.2-0.8); MONOCYTES % 4.8 % (4.4-11.3); NEUTROPHILS # (AUTO) 10.2 (2.1-6.9); PLATELET COUNT 79 x10e3/uL (140-360); RED BLOOD COUNT 3.37 x10e6/uL (4.3-5.7); RED CELL DISTRIBUTION WIDTH 15.9 % (11.7-14.4)
[2018-06-13 05:36] LABS: INR 1.05; PROTHROMBIN TIME 14.2 seconds (11.9-14.5)
[2018-06-13 05:42] LABS: ANION GAP 11.4 mmol/L (8-16); CALCIUM 8.4 mg/dL (8.4-10.2); CREATININE, SERUM 1.78 mg/dL (0.72-1.25); MAGNESIUM 1.5 MG/DL (1.3-2.1); POTASSIUM 3.4 mmol/L (3.5-5.1)
[2018-06-13 06:31] LABS: BAND NEUTROPHILS % (MANUAL) 11 %; LYMPHOCYTES % (MANUAL) 7 % (19-48); MONOCYTES % (MANUAL) 5 % (3.4-9.0); NEUTROPHILS % (MANUAL) 77 % (40-74); PLATELET ESTIMATE SLIGHTLY DECREASED; PLATELET MORPHOLOGY COMMENT NORMAL; RBC MORPHOLOGY COMMENT NORMAL
--- NOTE | 2018-06-13 07:20 | NUR ---
PATIENT IS IN STABLE CONDITION WITH NO S/S OF RESPIRATORY DISTRESS. NO PAIN VOICED. TELEMETRY APPLIED. COLOSTOMY INTACT. PRESENT IN ROOM. CALL LIGHT IS WITHIN REACH-PATIENT INSTRUCTED TO CALL FOR ASSISTANCE NEEDED.
[2018-06-13] MEDS: INSULIN LISPRO 100 UNIT/1 ML 3ML VIAL SQ SCH ×4 (07:30→20:42)
[2018-06-13 08:00] VITALS: BP 174/92
[2018-06-13] MEDS: [UNRECOGNIZED DRUG - OTHER] TOP SCH (09:00)
[2018-06-13] MEDS: TRESIBA 20 UNIT SQ SCH (09:00)
[2018-06-13] MEDS: ZINC ACETATE TOP SCH (09:00)
[2018-06-13] MEDS: BRIMONIDINE/TIMOLOL (OPTH SOLN 5 ML DRPETTE OP SCH (09:00)
[2018-06-13] MEDS: MEROPENEM 500MG/ NS 50ML 50 ML IV SCH (09:01)
[2018-06-13] MEDS: CYANOCOBALAMIN 1,000 MCG TAB PO SCH (09:01)
[2018-06-13] MEDS: GUAIFENESIN 600 MG TAB PO SCH ×2 (09:01→16:56)
[2018-06-13] MEDS: TACROLIMUS 1 MG CAP PO SCH ×2 (09:01→16:57)
[2018-06-13] MEDS: FOLIC ACID 1 MG TAB PO SCH (09:01)
[2018-06-13] MEDS: MAGNESIUM OXIDE 400 MG TAB PO SCH (09:01)
[2018-06-13] MEDS: SODIUM BICARBONATE 650 MG TAB PO SCH ×3 (09:01→20:42)
[2018-06-13] MEDS: FUROSEMIDE 40 MG TAB PO SCH (09:01)
--- NOTE | 2018-06-13 11:55 | NUR ---
SPOKE WITH FAMILY ABOUT SNF ORDER, GAVE ALL OPTION IN AREA THAT ARE IN NETWORK, [facility], [facility], [facility] AND [facility]. STATES HAS BEEN TO [facility] BUT WANTS A PRIVATE ROOM SO DOES NOT WANT TO RETURN UNLESS SHE CAN GET A PRIVATE ROOM. SHE STATES SHE WILL GO LOOK AT ALL AND LET KNOW OF CHOICE ON FRIDAY, CM WILL NEED TO FOLLOW UP.
--- NOTE | 2018-06-13 12:04 | Consultation ---
DATE OF CONSULTATION: 06/13/2018 SUBJECTIVE: The patient is seen at bedside, feeling weak, still pale in color, but denies any history of fever, chills, nausea, or vomiting. OBJECTIVE: VITAL SIGNS: Afebrile, pulse rate 94, respirations 16, blood pressure 161/100, and O2 saturation 99%. EXTREMITIES: Ulceration to the right lower extremity healing slowly. Good granulation tissue noted tracking to bone. Charcot foot felt with the crepitation upon range of motion not due to infection. ASSESSMENT: Possible osteo, grade 3/4 ulceration with resolving cellulitis with white blood cell dropping from 14.8 to 13.0. PLAN: Continue meropenem IV piggyback. Continue local wound care. Continue offloading. Walking strictly with the aid of OrthoTECH walking boot. We will continue to follow. MELANIA Taylor/MARA /[id number]
[2018-06-13 12:30] VITALS: BP 157/68
[2018-06-13 16:28] VITALS: BP 150/72
--- NOTE | 2018-06-13 18:50 | NUR ---
PATIENT IS IN STABLE CONDITION WITH NO S/S OF RESPIRATORY DISTRESS. NO PAIN VOICED. TELEMETRY APPLIED. COLOSTOMY INTACT. CALL LIGHT IS WITHIN REACH-PATIENT INSTRUCTED TO CALL FOR ASSISTANCE NEEDED. BEDSIDE REPORT GIVEN TO ONCOMING NURSE.
--- NOTE | 2018-06-13 19:00 | NUR ---
patient received lying quietly in bed. patient appears to be sleeping and easily awakens. no c/o pain noted. pm assessment complete. call cobos placed within reach. patient instructed to call for assistance when needed.
[2018-06-13 19:30] VITALS: BP 124/82
[2018-06-13 19:57] VITALS: BP 124/82
[2018-06-13] MEDS: LATANOPROST(OPTH) 2.5 ML BTL OP SCH (20:41)
[2018-06-13] MEDS: COLLAGENASE OINTMENT 30 GM TUBE TP SCH (20:43)
[2018-06-13] MEDS: ALPRAZOLAM 0.25 MG TAB PO PRN (22:35)
--- NOTE | 2018-06-13 22:35 | NUR ---
patient medicated with xanax 0.25 mg po per patients request for increased anxiety at this time.
[2018-06-14] VITALS (7 sets, daily range): BP systolic 112–147; BP diastolic 55–75
[2018-06-14] MEDS: ALBUTEROL SULF 0.083% NEB SOLN 3 ML NEB NEB SCH ×4 (01:00→19:00)
[2018-06-14] MEDS: DIPHENHYDRAMINE HCL 25 MG CAP PO PRN (04:50)
[2018-06-14] MEDS: PANTOPRAZOLE 40 MG 10ML VIAL IV SCH (05:30)
[2018-06-14] MEDS: NIFEDIPINE CR 30 MG TAB PO SCH ×2 (05:30→16:52)
[2018-06-14] MEDS: INSULIN LISPRO 100 UNIT/1 ML 3ML VIAL SQ SCH ×4 (07:30→21:14)
[2018-06-14 07:36] LABS: BASOPHILS % 0.3 % (0.0-1.0); EOSINOPHILS # (AUTO) 0.1 (0.0-0.4); EOSINOPHILS % 0.5 % (0.0-6.0); HEMATOCRIT 28.1 % (38.2-49.6); HEMOGLOBIN 9.2 g/dL (14.0-18.0); LYMPHOCYTES # (AUTO) 1.2 (1.0-3.2); LYMPHOCYTES % 9.4 % (18.0-39.1); MEAN CORPUSCULAR HEMOGLOBIN 27.6 pg (28-32); MEAN CORPUSCULAR HGB CONC 32.7 g/dL (31-35); MEAN CORPUSCULAR VOLUME 84.4 fL (81-99); MONOCYTES # (AUTO) 1.3 (0.2-0.8); MONOCYTES % 9.6 % (4.4-11.3); NEUTROPHILS # (AUTO) 9.8 (2.1-6.9); NEUTROPHILS % 73.7 % (38.7-80.0); PLATELET COUNT 92 x10e3/uL (140-360); RED BLOOD COUNT 3.33 x10e6/uL (4.3-5.7); RED CELL DISTRIBUTION WIDTH 15.9 % (11.7-14.4)
[2018-06-14] MEDS: ZINC ACETATE TOP SCH (09:00)
[2018-06-14] MEDS: [UNRECOGNIZED DRUG - OTHER] TOP SCH (09:00)
[2018-06-14] MEDS ORDERED: WARFARIN SOD 5 MG TAB PO NR (09:00)
[2018-06-14] MEDS: BRIMONIDINE/TIMOLOL (OPTH SOLN 5 ML DRPETTE OP SCH (09:00)
[2018-06-14] MEDS: FOLIC ACID 1 MG TAB PO SCH (09:08)
[2018-06-14] MEDS: MEROPENEM 500MG/ NS 50ML 50 ML IV SCH (09:08)
[2018-06-14] MEDS: MAGNESIUM OXIDE 400 MG TAB PO SCH (09:09)
[2018-06-14] MEDS: GUAIFENESIN 600 MG TAB PO SCH ×2 (09:09→16:51)
[2018-06-14] MEDS: SODIUM BICARBONATE 650 MG TAB PO SCH ×3 (09:09→21:25)
[2018-06-14] MEDS: CYANOCOBALAMIN 1,000 MCG TAB PO SCH (09:09)
[2018-06-14] MEDS: TACROLIMUS 1 MG CAP PO SCH ×2 (09:09→16:51)
[2018-06-14] MEDS: FUROSEMIDE 40 MG TAB PO SCH (09:09)
[2018-06-14] MEDS: TRESIBA 20 UNIT SQ SCH (09:09)
[2018-06-14 11:49] LABS: INR 1.04; PROTHROMBIN TIME 14.1 seconds (11.9-14.5)
[2018-06-14 13:40] LABS: BAND NEUTROPHILS % (MANUAL) 3 %; LYMPHOCYTES % (MANUAL) 12 % (19-48); MONOCYTES % (MANUAL) 7 % (3.4-9.0); NEUTROPHILS % (MANUAL) 78 % (40-74); PLATELET ESTIMATE MODERATELY DECREASED; PLATELET MORPHOLOGY COMMENT NORMAL; RBC MORPHOLOGY COMMENT NORMAL
--- NOTE | 2018-06-14 19:38 | NUR ---
PATIENT IS IN STABLE CONDITION WITH NO S/S OF RESPIRATORY DISTRESS- NO PAIN VOICED. TELEMETRY AND CONTINUOUS PULSE OX APPLIED. COLOSTOMY PRESENT. RIGHT FOOT DRESSING IS INTACT. PRESENT IN ROOM. CALL LIGHT IS WITHIN REACH, PATIENT INSTRUCTED TO CALL FOR ASSISTANCE NEEDED. BEDSIDE REPORT GIVEN TO ONCOMING NURSE.
--- NOTE | 2018-06-14 20:19 | NUR ---
RECEIVED PT IN BED AOX3 DENOTES PAIN NO ACUTE DISTRESS NOTED .PT HAS COLOSTOMY TELE 22 SR .CALL LIGHT WITH IN REACH .CONTINUE TO MONITOR
[2018-06-14] MEDS: COLLAGENASE OINTMENT 30 GM TUBE TP SCH (21:32)
[2018-06-14] MEDS: LATANOPROST(OPTH) 2.5 ML BTL OP SCH (21:33)
[2018-06-14] MEDS: OXYCODONE/ACETAMINOPHEN 5-325 1 EACH TABLET PO PRN (22:57)
[2018-06-15] VITALS (8 sets, daily range): BP systolic 117–174; BP diastolic 58–82
[2018-06-15] MEDS: ALBUTEROL SULF 0.083% NEB SOLN 3 ML NEB NEB SCH ×4 (01:00→19:00)
[2018-06-15] MEDS: NIFEDIPINE CR 30 MG TAB PO SCH ×2 (05:00→17:54)
[2018-06-15] MEDS: PANTOPRAZOLE 40 MG 10ML VIAL IV SCH (06:00)
[2018-06-15 06:32] LABS: BASOPHILS % 0.2 % (0.0-1.0); EOSINOPHILS # (AUTO) 0.1 (0.0-0.4); EOSINOPHILS % 0.8 % (0.0-6.0); HEMOGLOBIN 8.3 g/dL (14.0-18.0); LYMPHOCYTES # (AUTO) 1.3 (1.0-3.2); LYMPHOCYTES % 8.2 % (18.0-39.1); MEAN CORPUSCULAR HEMOGLOBIN 27.9 pg (28-32); MEAN CORPUSCULAR HGB CONC 33.2 g/dL (31-35); MEAN CORPUSCULAR VOLUME 83.9 fL (81-99); MONOCYTES # (AUTO) 1.5 (0.2-0.8); MONOCYTES % 9.6 % (4.4-11.3); NEUTROPHILS # (AUTO) 11.7 (2.1-6.9); NEUTROPHILS % 75.3 % (38.7-80.0); PLATELET COUNT 91 x10e3/uL (140-360); RED BLOOD COUNT 2.98 x10e6/uL (4.3-5.7)
[2018-06-15 07:17] LABS: INR 1.22
--- NOTE | 2018-06-15 07:22 | NUR ---
BEDSIDE REPORT GIVEN TO THE ONCOMING NURSE
[2018-06-15] MEDS: MEROPENEM 500MG/ NS 50ML 50 ML IV SCH (08:29)
[2018-06-15] MEDS: FOLIC ACID 1 MG TAB PO SCH (08:29)
[2018-06-15] MEDS: MAGNESIUM OXIDE 400 MG TAB PO SCH (08:29)
[2018-06-15] MEDS: TACROLIMUS 1 MG CAP PO SCH ×2 (08:29→17:54)
[2018-06-15] MEDS: BRIMONIDINE/TIMOLOL (OPTH SOLN 5 ML DRPETTE OP SCH (08:29)
[2018-06-15] MEDS: SODIUM BICARBONATE 650 MG TAB PO SCH ×3 (08:29→21:37)
[2018-06-15] MEDS: GUAIFENESIN 600 MG TAB PO SCH ×2 (08:29→17:54)
[2018-06-15] MEDS: FUROSEMIDE 40 MG TAB PO SCH (08:29)
[2018-06-15] MEDS: CYANOCOBALAMIN 1,000 MCG TAB PO SCH (08:30)
[2018-06-15] MEDS: CALCITRIOL 0.25 MCG CAP PO SCH (08:37)
[2018-06-15] MEDS: INSULIN LISPRO 100 UNIT/1 ML 3ML VIAL SQ SCH ×4 (08:47→21:00)
[2018-06-15] MEDS: TRESIBA 20 UNIT SQ SCH (08:47)
[2018-06-15] MEDS: [UNRECOGNIZED DRUG - OTHER] TOP SCH (09:00)
[2018-06-15] MEDS: ZINC ACETATE TOP SCH (09:00)
--- NOTE | 2018-06-15 13:40 | NUR ---
Pt unavailable at this time. I will follow up as able. DIPAK Calabreselain Spiritual Care Department O: [phone] Pager: [phone] ([phone] number calling from)
[2018-06-15] MEDS ORDERED: WARFARIN SOD 3 MG TAB PO NR (17:00)
[2018-06-15] MEDS: EPOETIN ALFA 10000 UNIT/ML VIAL SC SCH (17:56)
[2018-06-15] MEDS: PANTOPRAZOLE SOD 40 MG TABEC PO SCH (18:01)
--- NOTE | 2018-06-15 20:00 | NUR ---
RECEIVED PT IN BED AOX3 .C/O PAIN . TELE 22 SR .CALL LIGHT WITH IN REACH .CONTINUE TO MONITOR
[2018-06-15] MEDS: OXYCODONE/ACETAMINOPHEN 5-325 1 EACH TABLET PO PRN (21:29)
[2018-06-15] MEDS: COLLAGENASE OINTMENT 30 GM TUBE TP SCH (21:38)
[2018-06-15] MEDS: LATANOPROST(OPTH) 2.5 ML BTL OP SCH (21:38)
--- NOTE | 2018-06-15 22:53 | NUR ---
GIVEN PAIN MEDICATION AND CONTINUE TO MONITOR
[2018-06-16] VITALS (8 sets, daily range): BP systolic 122–143; BP diastolic 58–69
[2018-06-16] MEDS: ALBUTEROL SULF 0.083% NEB SOLN 3 ML NEB NEB SCH ×2 (01:00→07:55)
[2018-06-16] MEDS: NIFEDIPINE CR 30 MG TAB PO SCH ×2 (05:00→17:00)
--- NOTE | 2018-06-16 05:42 | NUR ---
PT RESTING AND DENIES PAIN .CALL LIGHT WITH IN REACH .FAMILY AT THE BEDSIDE .CONTINUE TO MONITOR
[2018-06-16 06:46] LABS: INR 1.34; PROTHROMBIN TIME 17.2 seconds (11.9-14.5)
--- NOTE | 2018-06-16 07:29 | NUR ---
REPORT GIVEN TO THE ONCOMING NURSE
[2018-06-16] MEDS: INSULIN LISPRO 100 UNIT/1 ML 3ML VIAL SQ SCH ×4 (07:30→22:52)
--- NOTE | 2018-06-16 08:45 | NUR ---
per RT, pt has been refusing neb tx. pt confirmed he does not want neb tx. pagetonya PEARL to notify.
--- NOTE | 2018-06-16 08:46 | NUR ---
pt refused to go to cxr until completes breakfast.
[2018-06-16 08:50] LABS: ANION GAP 11.2 mmol/L (8-16); CREATININE, SERUM 1.87 mg/dL (0.72-1.25); POTASSIUM 3.2 mmol/L (3.5-5.1)
[2018-06-16] MEDS: ZINC ACETATE TOP SCH (09:00)
[2018-06-16] MEDS: [UNRECOGNIZED DRUG - OTHER] TOP SCH (09:00)
[2018-06-16] MEDS: TRESIBA 20 UNIT SQ SCH (09:00)
--- NOTE | 2018-06-16 09:12 | NUR ---
dr larios on unit, per pt refusal of nebs, rx cancelled. pt pending SNF, wanting to know how long iv abx per ID
--- NOTE | 2018-06-16 09:46 | NUR ---
pt went for cxr
--- NOTE | 2018-06-16 10:14 | Diagnostic Imaging Report ---
EXAMINATION: CHEST 2 VIEWS INDICATION: Pneumonia. COMPARISON: Chest radiograph 06/11/2018. FINDINGS: The lateral radiograph is limited by portable technique, motion, and soft tissue attenuation. TUBES and LINES: None. LUNGS: Low lung volumes. There are increasing patchy opacities in the right upper and bilateral lower lung zones. PLEURA: No pleural effusion or pneumothorax. HEART AND MEDIASTINUM: The cardiomediastinal silhouette is enlarged. There are atherosclerotic calcifications within the aorta. BONES AND SOFT TISSUES: No acute osseous abnormality. UPPER ABDOMEN: No free air under the diaphragm. IMPRESSION: Increasing multifocal patchy opacities, consistent with clinical history of pneumonia. Signed by: Dr. Oni Chavez MD on 06/16/2018 10:11 AM
--- NOTE | 2018-06-16 10:32 | NUR ---
SIGNED CHOICE FOR [facility] TO [phone]
--- NOTE | 2018-06-16 10:40 | NUR ---
dr larios was notified of labs when on unit, states renal MD to address na/k. andres PEARL.
[2018-06-16] MEDS: SODIUM BICARBONATE 650 MG TAB PO SCH ×3 (10:44→22:30)
[2018-06-16] MEDS: CYANOCOBALAMIN 1,000 MCG TAB PO SCH (10:44)
[2018-06-16] MEDS: MAGNESIUM OXIDE 400 MG TAB PO SCH (10:44)
[2018-06-16] MEDS: GUAIFENESIN 600 MG TAB PO SCH ×2 (10:44→17:00)
[2018-06-16] MEDS: TACROLIMUS 1 MG CAP PO SCH ×2 (10:44→17:00)
[2018-06-16] MEDS: PANTOPRAZOLE SOD 40 MG TABEC PO SCH ×2 (10:44→16:30)
[2018-06-16] MEDS: FOLIC ACID 1 MG TAB PO SCH (10:44)
[2018-06-16] MEDS: BRIMONIDINE/TIMOLOL (OPTH SOLN 5 ML DRPETTE OP SCH (10:44)
[2018-06-16] MEDS: FUROSEMIDE 40 MG TAB PO SCH (10:44)
[2018-06-16] MEDS: OXYCODONE/ACETAMINOPHEN 5-325 1 EACH TABLET PO PRN ×3 (10:46→19:45)
--- NOTE | 2018-06-16 13:00 | NUR ---
RCD THE REPORT PT IS ALERT AND ORIENTED AND RESTING ON BED BED LOW AND LOCKED CALL LIGHT IN REACH
[2018-06-16] MEDS: BALSAM PERU/CASTOR OIL 60 GM OINT...G. TP SCH (17:00)
[2018-06-16] MEDS ORDERED: POTASSIUM CHLORIDE 20 MEQ TAB CR PO NR (17:00)
[2018-06-16] MEDS ORDERED: WARFARIN SOD 3 MG TAB PO NR (18:30)
--- NOTE | 2018-06-16 18:40 | NUR ---
PT RESTING ON BED BED SIDE REPORT GIVEN TO ONCOMING NURSE
--- NOTE | 2018-06-16 19:05 | NUR ---
Patient visited in room during nursing rounds. Patient alert and oriented x3. Patient unable to ambulate due to extreme weakness (especially on BLE). RUQ colostomy present collecting dark brown soft stool. Pt on contact isolation for MDRO of urine. Pt legally blind on both eyes. at bedside. Call cobos within reach. Will monitor closely.
[2018-06-16] MEDS: COLLAGENASE OINTMENT 30 GM TUBE TP SCH (21:00)
[2018-06-16] MEDS ORDERED: INSULIN GLARGINE 100 UNITS/ML VIAL SQ SCH (21:00)
[2018-06-16] MEDS: LATANOPROST(OPTH) 2.5 ML BTL OP SCH (21:00)
--- NOTE | 2018-06-16 22:10 | Progress Note ---
DATE: 06/16/2018 SUBJECTIVE: The patient reports no more abdominal pain. Tolerating oral diet. Regular BM. REVIEW OF SYSTEMS: GENERAL: No fever or chills. He is still feeling very weak and fatigued. CVS: No chest pain or palpitation. RESPIRATORY: No cough or expectoration. MEDICATIONS: Reviewed as per MAY. He is on pantoprazole twice daily along with other medications. He is still getting intravenous meropenem. PHYSICAL EXAMINATION: VITAL SIGNS: Temperature 97.6, pulse 109, respirations 18, blood pressure 125/59, oxygen saturation 98% on room air. GENERAL: Not in any acute distress. Feeling very weak and lethargic. HEENT: Oral mucosa is moist. ABDOMEN: Soft, nondistended, nontender. No palpable mass or hernia. Left colostomy bag with soft brown semi-solid stool. LABORATORY DATA: WBC has gone up to 15.47 from 13.25; hemoglobin 8.3, down from 9.2; and platelet count 91. Sodium 133, potassium 3.2, chloride 98, bicarb 27, BUN 60, creatinine 1.87, which is up from 1.78. Chest x-ray on 06/16/2018, showed increasing multifocal patchy opacities, consistent with clinical history of pneumonia. IMPRESSION: 1. Pneumonia, on IV antibiotic, chest x-ray is not improving. 2. Dyspepsia and epigastric pain, has improved, on pantoprazole twice daily. 3. Thrombocytopenia, normocytic anemia. Iron profile is negative for iron deficiency anemia. His stool was noted Hemoccult positive. The patient is on warfarin. INR initially was supratherapeutic. INR is now subtherapeutic. Warfarin dose is being adjusted. PLAN: Cut down pantoprazole to once a day. Rest of the care as per primary team. The patient's hemoglobin is little down without any gross GI bleeding. I do not suspect any active GI source of blood loss. Adán Cabrera MD SA/MARA /[id number]
--- NOTE | 2018-06-16 23:00 | NUR ---
IV taken out on right antecubital due to infiltration. Right forearm IV (20g) kept and flushes well. Dressing changed. Patient wishes to keep IV on right forearm despite inserted more than 3 days. Patient aware of risks of possible infection if IV kept > 3 days. Pt adamant he wants to keep current IV.
[2018-06-17] VITALS: BP 106/51
[2018-06-17] MEDS: OXYCODONE/ACETAMINOPHEN 5-325 1 EACH TABLET PO PRN (02:54)
--- NOTE | 2018-06-17 03:16 | Progress Note ---
DATE: 06/16/2018 SUBJECTIVE: The patient at bedside, still pale. He is denying any history of fever, chills, nausea, or vomiting. OBJECTIVE: VITAL SIGNS: Afebrile, pulse rate 109, respirations 18, blood pressure 125/59, and O2 saturation 98%. EXTREMITIES: Ulceration to right lower extremity continues to improve. Decreased cellulitis, grade 4, measuring 4 to 5 cm in diameter, tracking down to the tendon and bone. LABORATORY DATA: Labs show white blood cell count of 15.4. ASSESSMENT: Charcot foot, grade 4 ulcer with cellulitis. PLAN: We will continue local wound care with b.i.d. changes. Continue offloading, weightbearing strictly with the orthopedic walking boot. MELANIA Taylor/MARA /[id number]
[2018-06-17 04:00] VITALS: BP 127/68
[2018-06-17] MEDS: NIFEDIPINE CR 30 MG TAB PO SCH (05:55)
[2018-06-17 06:36] LABS: BASOPHILS % 0.1 % (0.0-1.0); EOSINOPHILS # (AUTO) 0.1 (0.0-0.4); EOSINOPHILS % 0.5 % (0.0-6.0); HEMOGLOBIN 7.8 g/dL (14.0-18.0); MEAN CORPUSCULAR HEMOGLOBIN 27.7 pg (28-32); MEAN CORPUSCULAR HGB CONC 32.5 g/dL (31-35); MEAN CORPUSCULAR VOLUME 85.1 fL (81-99); MONOCYTES # (AUTO) 1.3 (0.2-0.8); MONOCYTES % 8.8 % (4.4-11.3); NEUTROPHILS # (AUTO) 11.8 (2.1-6.9); NEUTROPHILS % 81.3 % (38.7-80.0); PLATELET COUNT 114 x10e3/uL (140-360); RED BLOOD COUNT 2.82 x10e6/uL (4.3-5.7); RED CELL DISTRIBUTION WIDTH 16.4 % (11.7-14.4)
[2018-06-17 06:48] LABS: INR 1.42; PROTHROMBIN TIME 17.9 seconds (11.9-14.5)
[2018-06-17] MEDS ORDERED: PANTOPRAZOLE SOD 40 MG TABEC PO SCH (07:30)
[2018-06-17] MEDS ORDERED: POTASSIUM CHLORIDE 20 MEQ TAB CR PO ONE (08:30)
[2018-06-17 08:40] VITALS: BP 138/72
[2018-06-17] MEDS: INSULIN LISPRO 100 UNIT/1 ML 3ML VIAL SQ SCH ×2 (08:40→12:00)
[2018-06-17] MEDS: CALCITRIOL 0.25 MCG CAP PO SCH (08:40)
[2018-06-17] MEDS: FOLIC ACID 1 MG TAB PO SCH (08:40)
[2018-06-17] MEDS: FUROSEMIDE 40 MG TAB PO SCH (08:40)
[2018-06-17] MEDS: GUAIFENESIN 600 MG TAB PO SCH (08:40)
[2018-06-17] MEDS: CYANOCOBALAMIN 1,000 MCG TAB PO SCH (08:40)
[2018-06-17] MEDS: MAGNESIUM OXIDE 400 MG TAB PO SCH (08:40)
[2018-06-17] MEDS: TACROLIMUS 1 MG CAP PO SCH (08:40)
[2018-06-17 08:44] VITALS: BP 138/72
[2018-06-17] MEDS: [UNRECOGNIZED DRUG - OTHER] TOP SCH (09:00)
[2018-06-17] MEDS: TRESIBA 20 UNIT SQ SCH (09:00)
[2018-06-17] MEDS ORDERED: SODIUM BICARBONATE 650 MG TAB PO SCH (09:00)
[2018-06-17] MEDS: ZINC ACETATE TOP SCH (09:00)
[2018-06-17] MEDS: BRIMONIDINE/TIMOLOL (OPTH SOLN 5 ML DRPETTE OP SCH (09:00)
[2018-06-17] MEDS: BALSAM PERU/CASTOR OIL 60 GM OINT...G. TP SCH (09:00)
--- NOTE | 2018-06-17 10:48 | NUR ---
KATI BLANTON FOR PT TO GO TO [facility], ROOM [address] MARKS CALL REPORT TO [phone], RTF COMPLETED AND GIVEN TO NURSE TO COMPLETE TRANSFER.
[2018-06-17 12:01] VITALS: BP 127/66
--- NOTE | 2018-06-17 12:19 | Progress Note ---
DATE: 06/17/2018 SUBJECTIVE: The patient is seen at bedside, accompanied by . Feeling little bit better, has better skin color, is more communicative. OBJECTIVE: VITALS: Afebrile, pulse rate 117, blood pressure 138/72, and O2 saturation 98% with respiration rate of 16. EXTREMITIES: Ulceration on right lower extremity continues to improve, still tracking to bone, but closing from the edges in. Granular fibrotic base noted with hyperkeratotic rim, less than 4.5 to 5 cm in diameter. Still some crepitation felt upon range of motion with pedal pulses palpable. LAB: Show white blood cell count dropping from 15.4 to 14.5, hemoglobin is 7.8, hematocrit 24.0 with a platelet count of 114. ASSESSMENT: Charcot foot, grade 3/4 ulceration, possible osteo. PLAN: We will continue current medications. Continue local wound care. Continue weightbearing strictly with the aid of the [employer] walking boot. We will continue to follow. MELANIA Taylor/MARA /[id number]
--- NOTE | 2018-06-17 13:21 | NUR ---
report called to Aminta Ordaz at [facility]. Patient and aware of change.
--- NOTE | 2018-06-17 15:25 | NUR ---
patient leaving hospital via stretcher to ambulance for transfer to [facility]
== END 2018-06-17 15:44 | DRG 871 ==
LOC: ER 13:36 → ERHOLD 21:33 → MED/SURG3 06-03 01:45 → OBSVTOIN 06-04 09:03
PROVIDERS: ADMIT Internal Medicine; ATTEND Internal Medicine
PROC: 30233N1 Transfusion of Nonautologous Red Blood Cells into Peripheral Vein, Percutaneous Approach (ICD-10-PCS; 2018-06-06)
PROC: 30233R1 Transfusion of Nonautologous Platelets into Peripheral Vein, Percutaneous Approach (ICD-10-PCS; principal; 2018-06-10)
DX: A41.9 Sepsis, unspecified organism (principal); J15.9 Unspecified bacterial pneumonia; N18.6 End stage renal disease; G92 Toxic encephalopathy; N17.9 Acute kidney failure, unspecified; E87.2 Acidosis; E87.1 Hypo-osmolality and hyponatremia; N39.0 Urinary tract infection, site not specified; I13.2 Hypertensive heart and chronic kidney disease with heart failure and with stage 5 chronic kidney disease, or end stage renal disease; D84.9 Immunodeficiency, unspecified; T86.11 Kidney transplant rejection; I50.32 Chronic diastolic (congestive) heart failure; M86.8X7 Other osteomyelitis, ankle and foot; L97.416 Non-pressure chronic ulcer of right heel and midfoot with bone involvement without evidence of necrosis; D61.818 Other pancytopenia; B37.49 Other urogenital candidiasis; L03.115 Cellulitis of right lower limb; E11.22 Type 2 diabetes mellitus with diabetic chronic kidney disease; E11.65 Type 2 diabetes mellitus with hyperglycemia; E11.610 Type 2 diabetes mellitus with diabetic neuropathic arthropathy; R10.13 Epigastric pain; K58.9 Irritable bowel syndrome, unspecified; R53.81 Other malaise; Z87.891 Personal history of nicotine dependence; Z79.84 Long term (current) use of oral hypoglycemic drugs; E11.319 Type 2 diabetes mellitus with unspecified diabetic retinopathy without macular edema; I48.2 Chronic atrial fibrillation; Z93.3 Colostomy status; Z79.4 Long term (current) use of insulin; E11.69 Type 2 diabetes mellitus with other specified complication; E11.621 Type 2 diabetes mellitus with foot ulcer; Z79.01 Long term (current) use of anticoagulants; E66.9 Obesity, unspecified; Z68.30 Body mass index [BMI] 30.0-30.9, adult; D63.1 Anemia in chronic kidney disease; Z83.3 Family history of diabetes mellitus; Z82.49 Family history of ischemic heart disease and other diseases of the circulatory system; F41.0 Panic disorder [episodic paroxysmal anxiety]; D69.59 Other secondary thrombocytopenia; B96.89 Other specified bacterial agents as the cause of diseases classified elsewhere; Z16.24 Resistance to multiple antibiotics
CPT/HCPCS: 36415; 36600; 71045; 71046; 71250; 72170; 72220; 80048; 80053; 81001; 82270; 82533; 82550; 82553; 82607; 82728; 82746; 82805; 82948; 83090; 83540; 83605; 83615; 83735; 83921; 84100; 84145; 84165; 84443; 84466; 84484; 85025; 85379; 85384; 85610; 85730; 86850; 86900; 86920; 87040; 87086; 87186; 87400; 87449; 87493; 93005; 94640; 96361; 97139; 99284; G0378; J0692; J1442; J1720; J1940; J2020; J2185; J2405; J2543; J3370; J3420; J3430; J7030; J7050; J7507; J7512; P9016; P9034; Q4081

== ENCOUNTER 2018-06-22 14:56 | Inpatient (IN) | payer MEDICARE, OTHER ==
[~2018-06-22] VITALS: Ht 170.2 cm; Wt 90.7 kg
[~2018-06-22 14:56] MED LIST changes: +AMOX TR-K CLV1 EAC1; +GLIPIZIDE10 MG PO
--- OUTSIDE RECORDS SUMMARY | 2018-06-22 14:59 | XMS REPORT | Clinical Summary ---
Author Author DEVIN [facility] Address Unknown Phone Unavailable Care Team Providers Care Silver Solderer Name Role Phone Bam Mccarthy PCP Allergies [...] post kidney transplant 06/01/2013 Overview: ICD9 DX Home Insurance Agent L ast Assessment & Plan: Graft function [...] Area Manufactur er 09/06/2016 4301 / / [id number] Adhesion Barrier,Seprafilm 5x6 - Cement/Wong N/A: Abdomen GENZYME [id number] ler/Adhesi SURGICAL Implanted: Qty: 2 on 07/06/2014 by ve [employer] Amrit Elam MD 02/06/2017 43003-11 / / [id number] Adhesion Barrier,Seprafilm 5x6 - Cement/Wong N/A: Abdomen GENZYME [id number] ler/Adhesi SURGICAL Implanted: Qty: 1 on 01/31/2015 by [employer] Amrit Trimble MD [id number] / / Stent,Uret Polaris 5fr X 10cm - Uro Stent [place] [id number] SCIENTIFIC Implanted: Qty: 1 on 05/24/2013 03/09/2016 [id number] / / [id number] Stent,Uret Polaris 5fr X 10cm - Uro Stent Right: Ureter [place] [id number] SCIENTIFIC Implanted: Qty: 1 on 01/21/2014 by Baljit Larson MD Results Not on fileafter 06/21/2017 Insurance Payer Benefit Subscriber ID Type Phone Address Plan / Group TEXANPLUS TEXANPLUS xxxxxxxxx [facility] Advance Directives For more information, please contact: [facility] [address] [place] [phone] Date Inactivated Comments Code Status Date [...]
[2018-06-22 16:04] LABS: BASOPHILS % 0.1 % (0.0-1.0); EOSINOPHILS # (AUTO) 0.1 (0.0-0.4); EOSINOPHILS % 0.2 % (0.0-6.0); HEMATOCRIT 21.3 % (38.2-49.6); LYMPHOCYTES # (AUTO) 0.7 (1.0-3.2); MEAN CORPUSCULAR HEMOGLOBIN 27.6 pg (28-32); MEAN CORPUSCULAR HGB CONC 32.4 g/dL (31-35); MEAN CORPUSCULAR VOLUME 85.2 fL (81-99); MONOCYTES # (AUTO) 1.3 (0.2-0.8); MONOCYTES % 5.7 % (4.4-11.3); NEUTROPHILS # (AUTO) 19.6 (2.1-6.9); NEUTROPHILS % 89.5 % (38.7-80.0); PLATELET COUNT 391 x10e3/uL (140-360); RED CELL DISTRIBUTION WIDTH 17.6 % (11.7-14.4)
[2018-06-22 16:05] LABS: HEMOGLOBIN 6.9 g/dL (14.0-18.0)
[2018-06-22 16:16] LABS: ALBUMIN 1.8 g/dL (3.5-5.0); ALBUMIN/GLOBULIN RATIO 0.5 (0.8-2.0); ANION GAP 14.7 mmol/L (8-16); CALCIUM 8.3 mg/dL (8.4-10.2); CREATININE, SERUM 2.4 mg/dL (0.72-1.25); POTASSIUM 4.7 mmol/L (3.5-5.1)
--- NOTE | 2018-06-22 17:06 | Diagnostic Imaging Report ---
Exam: Left hand and wrist 3 views each History: Pain and swelling Comparison: None. Findings: Subacute oblique fracture of the distal ulnar metadiaphysis with callus formation. Degenerative arthrosis of the interphalangeal joints. Extensive vascular calcifications. Impression: Subacute oblique fracture of the distal ulnar metadiaphysis with callus formation.. Signed by: Dr. Tico Alejandro M.D. on 06/22/2018 5:02 PM
[2018-06-22 17:22] LABS: INR 1.64
[2018-06-22 17:23] LABS: PARTIAL THROMBOPLASTIN TIME 48.3 seconds (23.8-35.5)
[2018-06-22 17:34] LABS: CREATINE KINASE MB 0.5 ng/mL (0-5.0)
[2018-06-22 18:08] LABS: BILIRUBIN,URINE NEGATIVE (NEGATIVE); CLARITY,URINE HAZY (CLEAR); COLOR,URINE YELLOW (YELLOW); KETONES,URINE NEGATIVE (NEGATIVE); LEUKOCYTE ESTERASE ,URINE 1+ (NEGATIVE); NITRITE,URINE NEGATIVE (NEGATIVE); PROTEIN,URINE DIPSTICK NEGATIVE (NEGATIVE); URINE UROBILINOGEN 0.2 mg/dL (0.2 - 1)
[2018-06-22 18:25] LABS: BACTERIA,URINE MANY /HPF; EPITHELIAL CELLS,URINE MANY /LPF; WBC,URINE (MAN) >50 /HPF (0-5)
[2018-06-22 18:26] LABS: YEAST,URINE MANY
[2018-06-22] MEDS ORDERED: MORPHINE SULFATE INJ 4 MG/ML INJ 1ML IV STA (18:49)
[2018-06-22] MEDS ORDERED: ONDANSETRON HCL INJ 2MG/ML 2ML 2 MG/ML VIAL IV STA (18:49)
[2018-06-22] MEDS ORDERED: SODIUM CHLORIDE 0.9% 250ML 250 ML IV ONE (19:30)
[2018-06-22] MEDS ORDERED: ONDANSETRON HCL INJ 2MG/ML 2ML 2 MG/ML VIAL IV PRN (20:15)
[2018-06-22] MEDS ORDERED: MORPHINE SULFATE 2 MG/ML SYR 1ML IV PRN (20:15)
[2018-06-22] MEDS: PIPERACILLIN/TAZO 2.25 GM 50 ML IV SCH (20:55)
--- OUTSIDE RECORDS SUMMARY | 2018-06-22 21:11 | XMS REPORT | Clinical Summary ---
Author Author DEVIN [facility] Address Unknown Phone Unavailable Care Team Providers Care Plastics Production Machine Operator Name Role Phone Bam Mccarthy [...] post kidney transplant 06/01/2013 Overview: ICD9 DX [place] L ast Assessment & Plan: Graft function [...] Area Manufactur er 09/06/2016 [id number] / / [id number] Adhesion Barrier,Seprafilm 5x6 - Cement/Wong N/A: Abdomen GENZYME [id number] ler/Adhesi SURGICAL Implanted: Qty: 2 on 07/06/2014 by ve [employer] Amrit Elam MD 02/06/2017 43003-11 / / [id number] Adhesion Barrier,Seprafilm 5x6 - Cement/Wong N/A: Abdomen GENZYME [id number] ler/Adhesi SURGICAL Implanted: Qty: 1 on 01/31/2015 by [email or web address] Amrit Trimble MD [id number] / / Stent,Uret Polaris 5fr X 10cm - Uro Stent [place] [id number] SCIENTIFIC Implanted: Qty: 1 on 05/24/2013 03/09/2016 [id number] / / [id number] Stent,Uret Polaris 5fr X 10cm - Uro Stent Right: Ureter [place] [id number] SCIENTIFIC Implanted: Qty: 1 on 01/21/2014 by Baljit Larson MD Results Not on fileafter 06/21/2017 Insurance Payer Benefit Subscriber ID Type Phone Address Plan / Group TEXANPLUS [facility]US [facility] Advance Directives For more information, please contact: [facility] [address] [place] [phone] Date Inactivated Comments Code Status Date [...]
--- OUTSIDE RECORDS SUMMARY | 2018-06-22 21:13 | XMS REPORT | Continuity of Care Document ---
Author Author Gene Tapia Interface Address Unknown Phone Unavailable Problems Problem Status Onset Date Classification Date Reported Comments Source A41.9 SEPSIS, UNSPECIFIED ORGANISM 06/17/2018 Diagnosis 06/22/2018 SNF: [facility] M86.10 OTHER ACUTE OSTEOMYELITIS, UNSPECIFIED SITE 06/17/2018 [facility] J44.9 CHRONIC OBSTRUCTIVE PULMONARY DISEASE, UNSPECIFIED 06/17/2018 Diagnosis 06/22/2018 SNF: [facility] Type II diabetes mellitus uncontrolled 03/28/2018 [facility]/2018 [facility] E11.40 TYPE 2 DIABETES MELLITUS WITH DIABETIC NEUROPATHY, UNSPECIFIED 03/27/2018 Diagnosis 06/22/2018 SNF: [facility] L89.620 PRESSURE ULCER OF LEFT HEEL, UNSTAGEABLE 03/23/2018 Diagnosis 06/22/2018 SNF: [facility] J91.8 PLEURAL EFFUSION IN OTHER CONDITIONS CLASSIFIED ELSEWHERE 03/09/2018 Diagnosis 06/22/2018 SNF: [facility] F32.9 MAJOR DEPRESSIVE DISORDER, SINGLE EPISODE, UNSPECIFIED 03/09/2018 Diagnosis 06/22/2018 SNF: [facility] I73.9 PERIPHERAL VASCULAR DISEASE, UNSPECIFIED 03/09/2018 Diagnosis 06/22/2018 [facility] I48.91 UNSPECIFIED ATRIAL FIBRILLATION 03/09/2018 Diagnosis 06/22/2018 SNF: [facility] I50.9 HEART FAILURE, UNSPECIFIED 03/09/2018 Diagnosis 06/22/2018 SNF: [facility] S91.301A UNSPECIFIED OPEN WOUND, RIGHT FOOT, INITIAL ENCOUNTER 03/09/2018 Diagnosis 06/22/2018 [facility] Z[facility].0 KIDNEY TRANSPLANT STATUS 03/09/2018 Diagnosis 06/22/2018 [facility] Z91.81 HISTORY OF FALLING 03/09/2018 [facility] 06/[facility]/2018 [facility] S29.9XXA UNSPECIFIED INJURY OF THORAX, INITIAL ENCOUNTER 03/09/2018 Diagnosis 06/22/2018 [facility] L03.119 CELLULITIS OF UNSPECIFIED PART OF LIMB 03/09/2018 Diagnosis 06/22/2018 [facility] N28.9 DISORDER OF KIDNEY AND URETER, UNSPECIFIED 03/09/2018 Diagnosis 06/22/2018 [facility] Medications Medication Details Route Status Patient Instructions Ordering Provider Order Date Source Bactroban Ointment 2 % 1 APPLICATION TOPICALLY DAILY External Active 06/21/2018 [facility] Calcitriol Capsule 0.5 MCG 1 CAP(S) BY MOUTH DAILY ON MON/FRI/FRI Oral Active 06/19/2018 [facility] Folic Acid Tablet 1 MG Give 1 tablet by mouth one time a day for Supplement Oral Active 06/18/2018 [facility] Vitamin B12 Tablet Extended Release 1000 MCG Give 1 tablet by mouth one time a day for Supplement Oral Active 06/18/2018 [facility] Brimonidine Tartrate Solution 0.1 % 1 DROP(S) IN EACH EYE DAILY Ophthalmic Active 06/18/2018 [facility] Sodium Bicarbonate Tablet 650 MG Give 2 tablet by mouth three times a day related to KIDNEY TRANSPLANT STATUS (Z94.0) Oral Active 06/18/2018 SNF: [facility] Lasix Tablet 40 MG 1 TAB(S) BY MOUTH DAILY Oral Active 06/18/2018 SNF: [facility] guaiFENesin Syrup 100 MG/5ML Give 30 ml by mouth two times a day for Cough/Congestion [id number] Oral Active 06/18/2018 SNF: [facility] Magnesium Oxide Tablet 400 MG Give 1 tablet by mouth one time a day for Supplement Oral Active 06/18/2018 [facility] oxyCODONE HCl Tablet 5 MG Give 1 tablet by mouth every 4 hours as needed for pain DC Royal once Oxycodone arrives Oral Active 06/18/2018 [facility] Tresiba Solution 100 UNIT/ML Inject 20 unit subcutaneously one time a day for DMII Subcutaneous Active 06/18/2018 SNF: [facility] Collagenase Ointment 250 UNIT/GM Apply to Right foot topically every day shift for Wound Care External Active 06/18/2018 SNF: [facility] Protonix Tablet Delayed Release 40 MG 1 TAB(S) BY MOUTH 2 TIMES A DAY Oral Active 06/18/2018 SNF: [facility] NIFEdipine ER Tablet Extended Release 24 Hour 30 MG Give 1 tablet by mouth every 12 hours for HTN Hold for SBP<110, HR<60 Oral Active 06/18/2018 SNF: [facility] Tacrolimus Capsule 1 MG 2 CAP(S) BY MOUTH EVERY 12 HOURS (2CAPS=2MG) Oral Active 06/18/2018 SNF: [facility] Latanoprost Solution 0.005 % 1 DROP(S) IN EACH EYE AT BEDTIME Ophthalmic Active 06/18/2018 SNF: [facility] Insulin Lispro Solution 100 UNIT/ML Inject as per sliding scale: if 121 - 150=2 units; 151 - 200=4 units; 201 - 250=6 units; 251 - 300=8 units; 301 - 350=10 units; 351 - 400=12 units; 401 - 999=14 units Call MD, subcutaneously before meals and at bedtime for DMII Subcutaneous Active 06/18/2018 SNF: [facility] Royal Tablet 10-325 MG Give 1 tablet by mouth every 4 hours as needed for Pain D/C when Percocet arrives Oral Active 06/17/2018 SNF: [facility] hydrALAZINE HCl Tablet 25 MG 1 TAB(S) BY MOUTH EVERY 4 HOURS NEEDED FOR SBP >180; DBP >90 Oral Active 06/17/2018 SNF: [facility] diphenhydrAMINE HCl Tablet 25 MG Give 1 tablet by mouth as needed for Itching Bedtime Oral Active 06/17/2018 SNF: [facility] oxyCODONE-Acetaminophen Tablet 5-325 MG Give 1 tablet by mouth every 4 hours as needed for Pain Oral Active 06/17/2018 SNF: [facility] Zofran Tablet 4 MG 1 TAB(S) BY MOUTH EVERY 4 HOURS NEEDED Oral Active 06/17/2018 SNF: [facility] Benzonatate Capsule 100 MG 1 CAP(S) BY MOUTH EVERY 6 HOURS NEEDED Oral Active 06/17/2018 SNF: [facility] Santyl Ointment 250 UNIT/GM Apply to right plantar foot ulcer topically every day shift for wound healing cleanse right plantar foot with ns or wc, appply santyl with nugauze packing and cover daily External Active 04/09/2018 SNF: [facility] Santyl Ointment 250 UNIT/GM Apply to right plantar foot ulcer topically every day shift for wound healing cleanse right plantar foot with ns or wc, appply santyl with nugauze packing and cover daily External Inactive 04/09/2018 SNF: [facility] Lidocaine Patch 5 % 1 PATCH(ES) TOPICALLY DAILY - REMOVE IN 12-HOURS (REMOVE OLD PATCH BEFORE APPLYING A NEW ONE) LOCATION : LEFT SHOULDER External Active 04/07/2018 SNF: [facility] Lidocaine Patch 5 % 1 PATCH(ES) TOPICALLY DAILY - REMOVE IN 12-HOURS (REMOVE OLD PATCH BEFORE APPLYING A NEW ONE) LOCATION : LEFT SHOULDER External Active 04/07/2018 SNF: [facility] Probiotic Capsule Give 1 capsule by mouth one time a day for Supplement. for 7 Days Oral Active 04/03/2018 SNF: [facility] Probiotic Capsule Give 1 capsule by mouth one time a day for Supplement. for 7 Days Oral Active 04/03/2018 SNF: [facility] HydrOXYzine HCl Tablet 25 MG 0.5 TAB(S) BY MOUTH DAILY NEEDED (0.5T=12.5MG) Oral Active 04/03/2018 SNF: [facility] HydrOXYzine HCl Tablet 25 MG 0.5 TAB(S) BY MOUTH DAILY NEEDED (0.5T=12.5MG) Oral Active 04/03/2018 SNF: [facility] HydrOXYzine HCl Solution 25 MG/ML Inject 0.5 tablet intramuscularly every 6 hours as needed for Itching Give half tab. Intramuscular Inactive 04/02/2018 SNF: [facility] HydrOXYzine HCl Solution 25 MG/ML Inject 0.5 tablet intramuscularly every 6 hours as needed for Itching Give half tab. Intramuscular Inactive 04/02/2018 SNF: [facility] Ondansetron HCl Tablet 4 MG 1 TAB(S) BY MOUTH EVERY 6 HOURS NEEDED FOR N/V Oral Active 04/02/2018 SNF: [facility] Ondansetron HCl Tablet 4 MG 1 TAB(S) BY MOUTH EVERY 6 HOURS NEEDED FOR N/V Oral Active 04/01/2018 SNF: [facility] OxyCODONE HCl Tablet Abuse-Deterrent 7.5 MG 0.5 TAB(S) BY MOUTH EVERY 4 HOURS NEEDED (0.5TAB=2.5MG) Oral Active 03/31/2018 SNF: [facility] OxyCODONE HCl Tablet Abuse-Deterrent 7.5 MG 0.5 TAB(S) BY MOUTH EVERY 4 HOURS NEEDED (0.5TAB=2.5MG) Oral Active 03/31/2018 SNF: [facility] Coumadin Tablet 2 MG 1 TAB(S) BY MOUTH DAILY ON FRI/FRI/FRI RELATED TO HEART FAILURE, UNSPECIFIED (I50.9) Oral Active 03/30/2018 SNF: [facility] Coumadin Tablet 2 MG 1 TAB(S) BY MOUTH DAILY ON FRI/FRI/FRI RELATED TO HEART FAILURE, UNSPECIFIED (I50.9) Oral Active 03/30/2018 SNF: [facility] Roxicodone Tablet 5 MG Give 1 tablet by mouth every 4 hours as needed for Pain Oral Inactive 03/30/2018 SNF: [facility] Roxicodone Tablet 5 MG Give 1 tablet by mouth every 4 hours as needed for Pain Oral Inactive 03/30/2018 SNF: [facility] Santyl Ointment 250 UNIT/GM Apply to Right planter foot topically every day shift for Wound Healing External Active 03/29/2018 SNF: [facility] Santyl Ointment 250 UNIT/GM Apply to Right planter foot topically every day shift for Wound Healing External Active 03/29/2018 SNF: [facility] Levemir FlexPen Solution Pen-injector 100 UNIT/ML Inject 10 unit subcutaneously at bedtime for ANTIDIABETICS Subcutaneous Active 03/29/2018 SNF: [facility] Levemir FlexPen Solution Pen-injector 100 UNIT/ML Inject 10 unit subcutaneously at bedtime for ANTIDIABETICS Subcutaneous Active 03/29/2018 SNF: [facility] Coumadin Tablet 1 MG 1 TAB(S) BY MOUTH EVERY EVENING EVERY TUE, SAGAR, SAT, SUN RELATED TO UNSPECIFIED ATRIAL FIBRILLATION (I48.91) Oral Active 03/28/2018 SNF: [facility] Coumadin Tablet 1 MG 1 TAB(S) BY MOUTH EVERY EVENING EVERY TUE, SAGAR, SAT, SUN RELATED TO UNSPECIFIED ATRIAL FIBRILLATION (I48.91) Oral Active 03/28/2018 SNF: [facility] HumaLOG Solution 100 UNIT/ML Inject 5 unit subcutaneously before meals related to TYPE 2 DIABETES MELLITUS WITH HYPERGLYCEMIA (E11.65) AND Inject as per sliding scale: if 150 - 200=3; 201 - 250=6; 251 - 300=9; 301 - 350=12; 351+ Call MD, subcutaneously before meals and at bedtime related to TYPE 2 DIABETES MELLITUS WITH HYPERGLYCEMIA (E11.65) Subcutaneous Inactive 03/28/2018 SNF: [facility] HumuLIN R Solution 100 UNIT/ML Inject 5 unit subcutaneously before meals related to TYPE 2 DIABETES MELLITUS WITH HYPERGLYCEMIA (E11.65) AND Inject as per sliding scale: if 150 - 200=3; 201 - 250=6; 251 - 300=9; 301 - 350=12; 351+ Call MD, subcutaneously before meals and at bedtime related to TYPE 2 DIABETES MELLITUS WITH HYPERGLYCEMIA (E11.65) Injection Active 03/28/2018 SNF: [facility] HumaLOG Solution 100 UNIT/ML Inject 5 unit subcutaneously before meals related to TYPE 2 DIABETES MELLITUS WITH HYPERGLYCEMIA (E11.65) AND Inject as per sliding scale: if 150 - 200=3; 201 - 250=6; 251 - 300=9; 301 - 350=12; 351+ Call MD, subcutaneously before meals and at bedtime related to TYPE 2 DIABETES MELLITUS WITH HYPERGLYCEMIA (E11.65) Subcutaneous Inactive 03/28/2018 SNF: [facility] HumuLIN R Solution 100 UNIT/ML Inject 5 unit subcutaneously before meals related to TYPE 2 DIABETES MELLITUS WITH HYPERGLYCEMIA (E11.65) AND Inject as per sliding scale: if 150 - 200=3; 201 - 250=6; 251 - 300=9; 301 - 350=12; 351+ Call MD, subcutaneously before meals and at bedtime related to TYPE 2 DIABETES MELLITUS WITH HYPERGLYCEMIA (E11.65) Injection Active 03/28/2018 SNF: [facility] Ampicillin Capsule 500 MG 1 CAP(S) BY MOUTH EVERY 8 HOURS FOR 10 DAYS Oral Active 03/28/2018 SNF: [facility] Aztreonam in Dextrose Solution 1 GM/50ML Use 0.5 gram intravenously every 12 hours related to CELLULITIS OF UNSPECIFIED PART OF LIMB (L03.119) for 10 Days @ 100 mL/H Intravenous Active 03/28/2018 SNF: [facility] Prograf Capsule 1 MG 2 CAP(S) BY MOUTH 2 TIMES A DAY (2CAPS=2MG) RELATED TO KIDNEY TRANSPLANT STATUS (Z94.0) Oral Active 03/28/2018 SNF: [facility] Calcitriol Capsule 0.5 MCG 1 CAP(S) BY MOUTH DAILY ON FRI/FRI/FRI Oral Active 03/28/2018 SNF: [facility] Ferrous Sulfate Tablet 325 (65 Fe) MG Give 1 tablet by mouth one time a day for supplementation Oral Active 03/28/2018 SNF: [facility] Furosemide Tablet 40 MG 1 TAB(S) BY MOUTH EVERY 12 HOURS Oral Active 03/28/2018 SNF: [facility] PredniSONE Tablet 5 MG Give 1 tablet by mouth one time a day for CORTICOSTEROIDS Oral Active 03/28/2018 SNF: [facility] Loratadine Tablet 10 MG Give 1 tablet by mouth one time a day for Allergy Symptoms Oral Active 03/28/2018 SNF: [facility] Potassium Tablet Give 40 mEq by mouth one time a day for supplement Oral Active 03/28/2018 SNF: [facility] HydrALAZINE HCl Tablet 50 MG Give 1 tablet by mouth three times a day related to HEART FAILURE, UNSPECIFIED (I50.9) Hold for SBP <130 Oral Active 03/28/2018 SNF: [facility] Ampicillin Capsule 500 MG 1 CAP(S) BY MOUTH EVERY 8 HOURS FOR 10 DAYS Oral Active 03/28/2018 SNF: [facility] Aztreonam in Dextrose Solution 1 GM/50ML Use 0.5 gram intravenously every 12 hours related to CELLULITIS OF UNSPECIFIED PART OF LIMB (L03.119) for 10 Days @ 100 mL/H Intravenous Active 03/28/2018 SNF: [facility] Calcitriol Capsule 0.5 MCG 1 CAP(S) BY MOUTH DAILY ON FRI/FRI/FRI Oral Active 03/28/2018 SNF: [facility] Prograf Capsule 1 MG 2 CAP(S) BY MOUTH 2 TIMES A DAY (2CAPS=2MG) RELATED TO KIDNEY TRANSPLANT STATUS (Z94.0) Oral Active 03/28/2018 SNF: [facility] Ferrous Sulfate Tablet 325 (65 Fe) MG Give 1 tablet by mouth one time a day for supplementation Oral Active 03/28/2018 SNF: [facility] Furosemide Tablet 40 MG 1 TAB(S) BY MOUTH EVERY 12 HOURS Oral Active 03/28/2018 SNF: [facility] PredniSONE Tablet 5 MG Give 1 tablet by mouth one time a day for CORTICOSTEROIDS Oral Active 03/28/2018 SNF: [facility] Loratadine Tablet 10 MG Give 1 tablet by mouth one time a day for Allergy Symptoms Oral Active 03/28/2018 SNF: [facility] Potassium Tablet Give 40 mEq by mouth one time a day for supplement Oral Active 03/28/2018 SNF: [facility] HydrALAZINE HCl Tablet 50 MG Give 1 tablet by mouth three times a day related to HEART FAILURE, UNSPECIFIED (I50.9) Hold for SBP <130 Oral Active 03/28/2018 SNF: [facility] Tylenol Tablet 325 MG Give 2 tablet by mouth one time only for PAIN for 1 Day Per Randi Strickland Oral Active 03/28/2018 SNF: [facility] Tylenol Tablet 325 MG Give 2 tablet by mouth one time only for PAIN for 1 Day Per Randi Lewis Oncall Oral Active 03/28/2018 SNF: [facility] Oxycodone-Acetaminophen Tablet 5-325 MG Give 1 tablet by mouth every 4 hours as needed for PAIN *For Percocet 10-325:Give 1 Percocet 5- 325+ Oxycodone 5mg* Oral Active 03/28/2018 SNF: [facility] HydrOXYzine HCl Tablet 25 MG 0.5 TAB(S) BY MOUTH DAILY NEEDED (0.5T=12.5MG) Oral Active 03/28/2018 SNF: [facility] Tuberculin PPD Solution Inject 0.1 ml intradermally one time only for Prophylaxis for 1 Day Adm within first 24 hours of admission. Repeat yearly. Intradermal Active 03/28/2018 SNF: [facility] Oxycodone-Acetaminophen Tablet 5-325 MG Give 1 tablet by mouth every 4 hours as needed for PAIN *For Percocet 10-325:Give 1 Percocet 5- 325+ Oxycodone 5mg* Oral Active 03/28/2018 SNF: [facility] HydrOXYzine HCl Tablet 25 MG 0.5 TAB(S) BY MOUTH DAILY NEEDED (0.5T=12.5MG) Oral Active 03/28/2018 SNF: [facility] Tuberculin PPD Solution Inject 0.1 ml intradermally one time only for Prophylaxis for 1 Day Adm within first 24 hours of admission. Repeat yearly. Intradermal Active 03/28/2018 SNF: [facility] Roxicodone Tablet 5 MG Give 1 tablet by mouth every 4 hours as needed for Pain Give with Percocet 5-325mg to equal Percocet 10-325mg Oral Active 03/27/2018 SNF: [facility] Roxicodone Tablet 5 MG Give 1 tablet by mouth every 4 hours as needed for Pain Give with Percocet 5-325mg to equal Percocet 10-325mg Oral Active 03/27/2018 SNF: [facility] Tuberculin PPD Solution Inject 0.1 ml intradermally one time only for Prophylaxis for 1 Day Adm within first 24 hours of admission. Repeat yearly. Intradermal Active 03/14/2018 SNF: [facility] Allergies, Adverse Reactions, Alerts Substance Category Reaction Severity Reaction type Status Date Reported Comments Source Immunizations Immunization Date Given Site Status Last Updated Comments Source tuberculin skin test; purified protein derivative solution, intradermal 03/28/2018 completed Sidra Caldwell SNF: [facility] tuberculin skin test; purified protein derivative solution, intradermal 03/28/2018 completed Sidra Caldwell SNF: [facility] pneumococcal polysaccharide vaccine, 23 valent 03/28/2018 Not Given SNF: [facility] Influenza, seasonal, injectable 01/08/2018 completed SNF: [facility] Results Order Name Results Value Reference Range Date Interpretation Comments Source Blood sugar Blood sugar 162 mmol/L 06/22/2018 SNF: [facility] Blood sugar Blood sugar 183 mmol/L 06/22/2018 SNF: [facility] Blood sugar Blood sugar 183 mmol/L 06/22/2018 SNF: [facility] Blood sugar Blood sugar 188 mmol/L 06/22/2018 SNF: [facility] Blood sugar Blood sugar 178 mmol/L 06/21/2018 SNF: [facility] Blood sugar Blood sugar 162 mmol/L 06/21/2018 SNF: [facility] Blood sugar Blood sugar 165 mmol/L 06/21/2018 SNF: [facility] Blood sugar Blood sugar 165 mmol/L 06/21/2018 SNF: [facility] Blood sugar Blood sugar 200 mmol/L 06/21/2018 SNF: [facility] Blood sugar Blood sugar 146 mmol/L 06/20/2018 SNF: [facility] Blood sugar Blood sugar 146 mmol/L 06/20/2018 SNF: [facility] Blood sugar Blood sugar 164 mmol/L 06/20/2018 SNF: [facility] Blood sugar Blood sugar 188 mmol/L 06/20/2018 SNF: [facility] Blood sugar Blood sugar 213 mmol/L 06/19/2018 SNF: [facility] Blood sugar Blood sugar 244 mmol/L 06/19/2018 SNF: [facility] Blood sugar Blood sugar 246 mmol/L 06/19/2018 SNF: [facility] Blood sugar Blood sugar 246 mmol/L 06/19/2018 SNF: [facility] Blood sugar Blood sugar 287 mmol/L 06/19/2018 SNF: [facility] Blood sugar Blood sugar 311 mmol/L 06/18/2018 SNF: [facility] Blood sugar Blood sugar 373 mmol/L 06/18/2018 SNF: [facility] Blood sugar Blood sugar 116 mmol/L 04/08/2018 SNF: [facility] Blood sugar Blood sugar 116 mmol/L 04/08/2018 SNF: [facility] Blood sugar Blood sugar 116 mmol/L 04/08/2018 SNF: [facility] Blood sugar Blood sugar 116 mmol/L 04/08/2018 SNF: [facility] Blood sugar Blood sugar 302 mmol/L 04/08/2018 SNF: [facility] Blood sugar Blood sugar 302 mmol/L 04/08/2018 SNF: [facility] Blood sugar Blood sugar 337 mmol/L 04/07/2018 SNF: [facility] Blood sugar Blood sugar 127 mmol/L 04/07/2018 SNF: [facility] Blood sugar Blood sugar 337 mmol/L 04/07/2018 SNF: [facility] Blood sugar Blood sugar 127 mmol/L 04/07/2018 SNF: [facility] Blood sugar Blood sugar 127 mmol/L 04/07/2018 SNF: [facility] Blood sugar Blood sugar 127 mmol/L 04/07/2018 SNF: [facility] Blood sugar Blood sugar 115 mmol/L 04/07/2018 SNF: [facility] Blood sugar Blood sugar 115 mmol/L 04/07/2018 SNF: [facility] Blood sugar Blood sugar 116 mmol/L 04/07/2018 SNF: [facility] Blood sugar Blood sugar 116 mmol/L 04/07/2018 SNF: [facility] Blood sugar Blood sugar 253 mmol/L 04/07/2018 SNF: [facility] Blood sugar Blood sugar 253 mmol/L 04/07/2018 SNF: [facility] Blood sugar Blood sugar 253 mmol/L 04/07/2018 SNF: [facility] Blood sugar Blood sugar 253 mmol/L 04/07/2018 SNF: [facility] Blood sugar Blood sugar 244 mmol/L 04/06/2018 SNF: [facility] Blood sugar Blood sugar 244 mmol/L 04/06/2018 SNF: [facility] Blood sugar Blood sugar 244 mmol/L 04/06/2018 SNF: [facility] Blood sugar Blood sugar 244 mmol/L 04/06/2018 SNF: [facility] Blood sugar Blood sugar 185 mmol/L 04/06/2018 SNF: [facility] Blood sugar Blood sugar 185 mmol/L 04/06/2018 SNF: [facility] Blood sugar Blood sugar 185 mmol/L 04/06/2018 SNF: [facility] Blood sugar Blood sugar 185 mmol/L 04/06/2018 SNF: [facility] Blood sugar Blood sugar 144 mmol/L 04/06/2018 SNF: [facility] Blood sugar Blood sugar 144 mmol/L 04/06/2018 SNF: [facility] Blood sugar Blood sugar 144 mmol/L 04/06/2018 SNF: [facility] Blood sugar Blood sugar 144 mmol/L 04/06/2018 SNF: [facility] Blood sugar Blood sugar 141 mmol/L 04/06/2018 SNF: [facility] Blood sugar Blood sugar 141 mmol/L 04/06/2018 SNF: [facility] Blood sugar Blood sugar 141 mmol/L 04/06/2018 SNF: [facility] Blood sugar Blood sugar 141 mmol/L 04/06/2018 SNF: [facility] Blood sugar Blood sugar 237 mmol/L 04/05/2018 SNF: [facility] Blood sugar Blood sugar 237 mmol/L 04/05/2018 SNF: [facility] Blood sugar Blood sugar 237 mmol/L 04/05/2018 SNF: [facility] Blood sugar Blood sugar 237 mmol/L 04/05/2018 SNF: [facility] Blood sugar Blood sugar 212 mmol/L 04/05/2018 SNF: [facility] Blood sugar Blood sugar 212 mmol/L 04/05/2018 SNF: [facility] Blood sugar Blood sugar 143 mmol/L 04/05/2018 SNF: [facility] Blood sugar Blood sugar 143 mmol/L 04/05/2018 SNF: [facility] Blood sugar Blood sugar 242 mmol/L 04/05/2018 SNF: [facility] Blood sugar Blood sugar 242 mmol/L 04/05/2018 SNF: [facility] Blood sugar Blood sugar 242 mmol/L 04/05/2018 SNF: [facility] Blood sugar Blood sugar 242 mmol/L 04/05/2018 SNF: [facility] Blood sugar Blood sugar 169 mmol/L 04/04/2018 SNF: [facility] Blood sugar Blood sugar 169 mmol/L 04/04/2018 SNF: [facility] Blood sugar Blood sugar 169 mmol/L 04/04/2018 SNF: [facility] Blood sugar Blood sugar 169 mmol/L 04/04/2018 SNF: [facility] Blood sugar Blood sugar 120 mmol/L 04/04/2018 SNF: [facility] Blood sugar Blood sugar 120 mmol/L 04/04/2018 SNF: [facility] Blood sugar Blood sugar 167 mmol/L 04/04/2018 SNF: [facility] Blood sugar Blood sugar 167 mmol/L 04/04/2018 SNF: [facility] Blood sugar Blood sugar 167 mmol/L 04/04/2018 SNF: [facility] Blood sugar Blood sugar 167 mmol/L 04/04/2018 SNF: [facility] Blood sugar Blood sugar 224 mmol/L 04/04/2018 SNF: [facility] Blood sugar Blood sugar 224 mmol/L 04/04/2018 SNF: [facility] Blood sugar Blood sugar 224 mmol/L 04/04/2018 SNF: [facility] Blood sugar Blood sugar 224 mmol/L 04/04/2018 SNF: [facility] Blood sugar Blood sugar 152 mmol/L 04/04/2018 SNF: [facility] Blood sugar Blood sugar 152 mmol/L 04/04/2018 SNF: [facility] Blood sugar Blood sugar 152 mmol/L 04/03/2018 SNF: [facility] Blood sugar Blood sugar 152 mmol/L 04/03/2018 SNF: [facility] Blood sugar Blood sugar 240 mmol/L 04/03/2018 SNF: [facility] Blood sugar Blood sugar 240 mmol/L 04/03/2018 SNF: [facility] Blood sugar Blood sugar 240 mmol/L 04/03/2018 SNF: [facility] Blood sugar Blood sugar 240 mmol/L 04/03/2018 SNF: [facility] Blood sugar Blood sugar 245 mmol/L 04/03/2018 SNF: [facility] Blood sugar Blood sugar 245 mmol/L 04/03/2018 SNF: [facility] Blood sugar Blood sugar 240 mmol/L 04/03/2018 SNF: [facility] Blood sugar Blood sugar 240 mmol/L 04/03/2018 SNF: [facility] Blood sugar Blood sugar 240 mmol/L 04/03/2018 SNF: [facility] Blood sugar Blood sugar 240 mmol/L 04/03/2018 SNF: [facility] Blood sugar Blood sugar 154 mmol/L 04/02/2018 SNF: [facility] Blood sugar Blood sugar 154 mmol/L 04/02/2018 SNF: [facility] Blood sugar Blood sugar 154 mmol/L 04/02/2018 SNF: [facility] Blood sugar Blood sugar 154 mmol/L 04/02/2018 SNF: [facility] Blood sugar Blood sugar 187 mmol/L 04/02/2018 SNF: [facility] Blood sugar Blood sugar 187 mmol/L 04/02/2018 SNF: [facility] Blood sugar Blood sugar 256 mmol/L 04/02/2018 SNF: [facility] Blood sugar Blood sugar 256 mmol/L 04/02/2018 SNF: [facility] Blood sugar Blood sugar 256 mmol/L 04/02/2018 SNF: [facility] Blood sugar Blood sugar 256 mmol/L 04/02/2018 SNF: [facility] Blood sugar Blood sugar 198 mmol/L 04/01/2018 SNF: [facility] Blood sugar Blood sugar 198 mmol/L 04/01/2018 SNF: [facility] Blood sugar Blood sugar 130 mmol/L 04/01/2018 SNF: [facility] Blood sugar Blood sugar 130 mmol/L 04/01/2018 SNF: [facility] Blood sugar Blood sugar 130 mmol/L 04/01/2018 SNF: [facility] Blood sugar Blood sugar 130 mmol/L 04/01/2018 SNF: [facility] Blood sugar Blood sugar 113 mmol/L 04/01/2018 SNF: [facility] Blood sugar Blood sugar 113 mmol/L 04/01/2018 SNF: [facility] Blood sugar Blood sugar 113 mmol/L 04/01/2018 SNF: [facility] Blood sugar Blood sugar 113 mmol/L 04/01/2018 SNF: [facility] Blood sugar Blood sugar 365 mmol/L 04/01/2018 SNF: [facility] Blood sugar Blood sugar 365 mmol/L 04/01/2018 SNF: [facility] Blood sugar Blood sugar 365 mmol/L 04/01/2018 SNF: [facility] Blood sugar Blood sugar 365 mmol/L 04/01/2018 SNF: [facility] Blood sugar Blood sugar 209 mmol/L 03/31/2018 SNF: [facility] Blood sugar Blood sugar 209 mmol/L 03/31/2018 SNF: [facility] Blood sugar Blood sugar 209 mmol/L 03/31/2018 SNF: [facility] Blood sugar Blood sugar 209 mmol/L 03/31/2018 SNF: [facility] Blood sugar Blood sugar 187 mmol/L 03/31/2018 SNF: [facility] Blood sugar Blood sugar 187 mmol/L 03/31/2018 SNF: [facility] Blood sugar Blood sugar 120 mmol/L 03/31/2018 SNF: [facility] Blood sugar Blood sugar 120 mmol/L 03/31/2018 SNF: [facility] Blood sugar Blood sugar 315 mmol/L 03/31/2018 SNF: [facility] Blood sugar Blood sugar 315 mmol/L 03/31/2018 SNF: [facility] Blood sugar Blood sugar 315 mmol/L 03/31/2018 SNF: [facility] Blood sugar Blood sugar 315 mmol/L 03/31/2018 SNF: [facility] Blood sugar Blood sugar 348 mmol/L 03/30/2018 SNF: [facility] Blood sugar Blood sugar 348 mmol/L 03/30/2018 SNF: [facility] Blood sugar Blood sugar 348 mmol/L 03/30/2018 SNF: [facility] Blood sugar Blood sugar 348 mmol/L 03/30/2018 SNF: [facility] Blood sugar Blood sugar 178 mmol/L 03/30/2018 SNF: [facility] Blood sugar Blood sugar 178 mmol/L 03/30/2018 SNF: [facility] Blood sugar Blood sugar 178 mmol/L 03/30/2018 SNF: [facility] Blood sugar Blood sugar 178 mmol/L 03/30/2018 SNF: [facility] Blood sugar Blood sugar 206 mmol/L 03/30/2018 SNF: [facility] Blood sugar Blood sugar 206 mmol/L 03/30/2018 SNF: [facility] Blood sugar Blood sugar 163 mmol/L 03/30/2018 SNF: [facility] Blood sugar Blood sugar 163 mmol/L 03/30/2018 SNF: [facility] Blood sugar Blood sugar 163 mmol/L 03/30/2018 SNF: [facility] Blood sugar Blood sugar 163 mmol/L 03/30/2018 SNF: [facility] Blood sugar Blood sugar 206 mmol/L 03/29/2018 SNF: [facility] Blood sugar Blood sugar 206 mmol/L 03/29/2018 SNF: [facility] Blood sugar Blood sugar 206 mmol/L 03/29/2018 SNF: [facility] Blood sugar Blood sugar 206 mmol/L 03/29/2018 SNF: [facility] Blood sugar Blood sugar 274 mmol/L 03/29/2018 SNF: [facility] Blood sugar Blood sugar 274 mmol/L 03/29/2018 SNF: [facility] Blood sugar Blood sugar 155 mmol/L 03/29/2018 SNF: [facility] Blood sugar Blood sugar 155 mmol/L 03/29/2018 SNF: [facility] Blood sugar Blood sugar 155 mmol/L 03/29/2018 SNF: [facility] Blood sugar Blood sugar 155 mmol/L 03/29/2018 SNF: [facility] Blood sugar Blood sugar 213 mmol/L 03/29/2018 SNF: [facility] Blood sugar Blood sugar 213 mmol/L 03/29/2018 SNF: [facility] Blood sugar Blood sugar 213 mmol/L 03/29/2018 SNF: [facility] Blood sugar Blood sugar 213 mmol/L 03/29/2018 SNF: [facility] Blood sugar Blood sugar 164 mmol/L 03/28/2018 SNF: [facility] Blood sugar Blood sugar 164 mmol/L 03/28/2018 SNF: [facility] Blood sugar Blood sugar 164 mmol/L 03/28/2018 SNF: [facility] Blood sugar Blood sugar 164 mmol/L 03/28/2018 SNF: [facility] Blood sugar Blood sugar 245 mmol/L 03/28/2018 SNF: [facility] Blood sugar Blood sugar 245 mmol/L 03/28/2018 SNF: [facility] Vital Signs Vital Sign Value Date Comments Source Respitory Rate 17 06/22/2018 SNF: [facility] Systolic (mm Hg) 94 06/22/2018 SNF: [facility] Diastolic (mm Hg) 53 06/22/2018 SNF: [facility] Temperature Oral (F) 97.5 F 06/22/2018 SNF: [facility] Heart Rate 86 {beats}/min 06/22/2018 SNF: [facility] Systolic (mm Hg) 94 06/22/2018 SNF: [facility] Diastolic (mm Hg) 53 06/22/2018 SNF: [facility] Heart Rate 84 {beats}/min 06/22/2018 SNF: [facility] Respitory Rate 18 06/22/2018 SNF: [facility] Systolic (mm Hg) 135 06/22/2018 SNF: [facility] Diastolic (mm Hg) 73 06/22/2018 SNF: [facility] Temperature Oral (F) 97 F 06/22/2018 SNF: [facility] Heart Rate 68 {beats}/min 06/22/2018 SNF: [facility] Systolic (mm Hg) 135 06/22/2018 SNF: [facility] Diastolic (mm Hg) 78 06/22/2018 SNF: [facility] Heart Rate 68 {beats}/min 06/22/2018 SNF: [facility] Systolic (mm Hg) 135 06/22/2018 SNF: [facility] Diastolic (mm Hg) 78 06/22/2018 [facility] Heart Rate 68 {beats}/min 06/22/2018 [facility] Resp[facility] Rate 18 06/22/2018 [facility] Systolic (mm Hg) 139 06/22/2018 [facility] Diastolic (mm Hg) 76 06/22/2018 [facility] Temperature Oral (F) 97.7 F 06/22/2018 [facility] Heart Rate 75 {beats}/min 06/22/2018 [facility] Systolic (mm Hg) 132 06/21/2018 [facility] Diastolic (mm Hg) 68 06/21/2018 SNF: [facility] Heart Rate 80 {beats}/min 06/21/2018 [facility] Systolic (mm Hg) 132 06/21/2018 [facility] Diastolic (mm Hg[facility] 68 06/21/2018 [facility] Heart Rate 80 {beats}/min 06/21/2018 [facility] Respitory Rate 18 06[facility]21/2018 [facility] Systolic (mm Hg) 138 06/21/2018 [facility] Diastolic (mm Hg) 76 06/21/2018 SNF: [facility] Temperature Oral (F) 97.7 F 06/21/2018 SNF: [facility] Heart Rate 73 {beats}/min 06/21/2018 [facility] Resp[facility] Rate 18 06[facility]21/2018 [facility] Systolic (mm Hg) 114 06/21/2018 [facility] [place] Diastolic (mm Hg) 52 06/21/2018 [facility] Temperature Oral (F) 97.8 F 06/21/2018 SNF: [facility] Heart Rate 81 {beats}/min 06/21/2018 [facility]: [facility] Systolic (mm Hg) 135 06/21/2018 [facility] Diastolic (mm Hg) 77 06/21/2018 SNF: [facility] Heart Rate 80 {beats}/min 06/21/2018 [facility] Systolic (mm Hg) 135 06/21/2018 [facility] Diastolic (mm Hg) 77 06/21/2018 SNF: [facility] Heart Rate 68 {beats}/min 06/21/2018 [facility] Respitory Rate 18 06[facility]20/2018 [facility] Systolic (mm Hg) 137 06/20/2018 [facility] Diastolic (mm Hg) 76 06/20/2018 SNF: [facility] Temperature Oral (F) 97.9 F 06/20/2018 SNF: [facility] Heart Rate 73 {beats}/min 06/20/2018 SNF: [facility] Systolic (mm Hg) 130 06/20/2018 SNF: [facility] Diastolic (mm Hg) 86 06/20/2018 SNF: [facility] Heart Rate 75 {beats}/min 06/20/2018 [facility] Respitory Rate 18 06/20/2018 SNF: [facility] [place] Systolic (mm Hg) 134 06/20/2018 SNF: [facility] [place] Diastolic (mm Hg) 62 06/20/2018 SNF: [facility] Temperature Oral (F) 98.1 F 06/20/2018 SNF: [facility] Heart Rate 76 {beats}/min 06/20/2018 [facility] Systolic (mm Hg) 130 06/20/2018 [facility] Diastolic (mm Hg) 86 06/20/2018 SNF: [facility] Heart Rate 75 {beats}/min 06/20/2018 [facility] Resp[facility] Rate 18 06/20/2018 SNF: [facility] [place] Systolic (mm Hg) 125 06/20/2018 [facility] Diastolic (mm Hg) 65 06/20/2018 SNF: [facility] Temperature Oral (F) 97.5 F 06/20/2018 SNF: [facility] Heart Rate 90 {beats}/min 06/20/2018 [facility] Respitory Rate 18 06/20/2018 [facility] [place] Systolic (mm Hg) 119 06/20/2018 [facility] [place] Diastolic (mm Hg) 69 06/20/2018 [facility] Temperature Oral (F) 97.3 F 06/20/2018 [facility] Heart Rate 92 {beats}/min 06/20/2018 [facility] [place] Systolic (mm Hg) 125 06/20/2018 [facility] Diastolic (mm Hg) 69 06/20/2018 [facility] Heart Rate 104 {beats}/min 06/20/2018 [facility] Systolic (mm Hg) 125 06/20/2018 [facility]: [facility] [place] Diastolic (mm Hg) 69 06/20/2018 [facility] Heart Rate 104 {beats}/min 06/20/2018 [facility]: [facility] Respitory Rate 18 06/19/2018 [facility] [place] Systolic (mm Hg) 157 06/19/2018 [facility]: [facility] [place] Diastolic (mm Hg) 84 06/19/2018 SNF: [facility] Temperature Oral (F) 97.6 F 06/19/2018 [facility] Heart Rate 75 {beats}/min 06/19/2018 [facility]: [facility] Systolic (mm Hg) 157 06/19/2018 [facility]: [facility] [place] Diastolic (mm Hg[facility] 84 06/19/2018 [facility] Heart Rate 75 {beats}/min 06/19/2018 [facility] [place] Systolic (mm Hg) 157 06/19/2018 [facility] [place] Diastolic (mm Hg) 84 06/19/2018 [facility]: [facility] Heart Rate 75 {beats}/min 06/19/2018 [facility]: [facility] Respitory Rate 18 06/19/2018 [facility] Systolic (mm Hg) 100 06/19/2018 [facility] Diastolic (mm Hg) 64 06/19/2018 SNF: [facility] Temperature Oral (F) 98 F 06/19/2018 [facility] Heart Rate 90 {beats}/min 06/19/2018 [facility] Respitory Rate 18 06[facility]19/2018 [facility] [place] Systolic (mm Hg) 113 06/19/2018 [facility] [place] Diastolic (mm Hg) 81 06[facility]19/2018 [facility] Temperature Oral (F) 97.3 F 06/19/2018 [facility] Heart Rate 89 {beats}/min 06/19/2018 [facility] Systolic (mm Hg) 159 06/19/2018 [facility]: [facility] [place] Diastolic (mm Hg[facility] 74 06/19/2018 [facility] Heart Rate 80 {beats}/min 06/19/2018 [facility] [place] Systolic (mm Hg) 159 06/19/2018 [facility] [place] Diastolic (mm Hg) 74 06[facility]19/2018 SNF: [facility] Heart Rate 80 {beats}/min 06/19/2018 [facility] Respitory Rate 17 06/18/2018 [facility] [place] Systolic (mm Hg) 112 06[facility]18/2018 [facility] [place] Diastolic (mm Hg) 62 06/18/2018 SNF: [facility] Temperature Oral (F) 98.5 F 06/18/2018 [facility] Heart Rate 96 {beats}/min 06/18/2018 [facility] [place] Systolic (mm Hg) 112 06/18/2018 [facility] [place] Diastolic (mm Hg) 62 06/18/2018 [facility] Heart Rate 96 {beats}/min 06/18/2018 [facility] [place] Systolic (mm Hg) 110 06/18/2018 [facility]: [facility] [place] Diastolic (mm Hg) 54 06/18/2018 SNF: [facility] Heart Rate 98 {beats}/min 06/18/2018 [facility] Weight 195.8 06/18/2018 SNF: [facility] Height 67 06/18/2018 [facility] Respitory Rate 18 06/18/2018 SNF: [facility] Systolic (mm Hg) 108 06/18/2018 SNF: [facility] Diastolic (mm Hg) 52 06/18/2018 SNF: [facility] Temperature Oral (F) 98.6 F 06/18/2018 SNF: [facility] Heart Rate 99 {beats}/min 06/18/2018 SNF: [facility] Systolic (mm Hg) 104 06/18/2018 SNF: [facility] Diastolic (mm Hg) 63 06/18/2018 SNF: [facility] Heart Rate 100 {beats}/min 06/18/2018 SNF: [facility] Systolic (mm Hg) 104 06/17/2018 SNF: [facility] Diastolic (mm Hg) 63 06/17/2018 SNF: [facility] Temperature Oral (F) 97.8 F 06/17/2018 SNF: [facility] Respitory Rate 19 06/17/2018 SNF: [facility] Heart Rate 100 {beats}/min 06/17/2018 SNF: [facility] Respitory Rate 18 04/08/2018 SNF: [facility] Systolic (mm Hg) 136 04/08/2018 SNF: [facility] Diastolic (mm Hg) 72 04/08/2018 SNF: [facility] Temperature Oral (F) 97.9 F 04/08/2018 SNF: [facility] Heart Rate 88 {beats}/min 04/08/2018 SNF: [facility] Respitory Rate 18 04/08/2018 SNF: [facility] Systolic (mm Hg) 136 04/08/2018 [facility] Diastolic (mm Hg) 72 04/08/2018 SNF: [facility] Temperature Oral (F) 97.9 F 04/08/2018 SNF: [facility] Heart Rate 88 {beats}/min 04/08/2018 [facility] Weight 189 04/08/2018 SNF: [facility] Weight 189 04/08/2018 SNF: [facility] Respitory Rate 18 04/08/2018 SNF: [facility] Systolic (mm Hg) 146 04/08/2018 SNF: [facility] Diastolic (mm Hg) 59 04/08/2018 SNF: [facility] Temperature Oral (F) 98.6 F 04/08/2018 SNF: [facility] Heart Rate 89 {beats}/min 04/08/2018 SNF: [facility] Respitory Rate 18 04/08/2018 SNF: [facility] Systolic (mm Hg) 146 04/08/2018 SNF: [facility] Diastolic (mm Hg) 59 04/08/2018 SNF: [facility] Temperature Oral (F) 98.6 F 04/08/2018 SNF: [facility] Heart Rate 89 {beats}/min 04/08/2018 SNF: [facility] Respitory Rate 18 04/08/2018 SNF: [facility] Systolic (mm Hg) 148 04/08/2018 SNF: [facility] Diastolic (mm Hg) 60 04/08/2018 SNF: [facility] Temperature Oral (F) 96.8 F 04/08/2018 SNF: [facility] Heart Rate 80 {beats}/min 04/08/2018 SNF: [facility] Respitory Rate 18 04/08/2018 SNF: [facility] Systolic (mm Hg) 148 04/08/2018 SNF: [facility] Diastolic (mm Hg) 60 04/08/2018 SNF: [facility] Temperature Oral (F) 96.8 F 04/08/2018 SNF: [facility] Heart Rate 80 {beats}/min 04/08/2018 [facility] Respitory Rate 18 04/07/2018 [facility] Systolic (mm Hg) 148 04/07/2018 [facility] [place] Diastolic (mm Hg) 60 04/07/2018 [facility] Temperature Oral (F) 96.8 F 04/07/2018 [facility] Heart Rate 80 {beats}/min 04/07/2018 [facility]: [facility] Respitory Rate 18 04/07/2018 [facility] [place] Systolic (mm Hg) 148 04/07/2018 [facility] [place] Diastolic (mm Hg) 60 04/07/2018 [facility] Temperature Oral (F) 96.8 F 04/07/2018 [facility] Heart Rate 80 {beats}/min 04/07/2018 [facility] Respitory Rate 18 04/07/2018 [facility] [place] Systolic (mm Hg) 151 04/07/2018 [facility] [place] Diastolic (mm Hg) 59 04/07/2018 [facility] Temperature Oral (F) 96.4 F 04/07/2018 [facility] Heart Rate 82 {beats}/min 04/07/2018 [facility] Respitory Rate 18 04[facility]07/2018 [facility] [place] Systolic (mm Hg) 151 04/07/2018 [facility]: [facility] [place] Diastolic (mm Hg) 59 04/07/2018 [facility] Temperature Oral (F) 96.4 F 04/07/2018 [facility] Heart Rate 82 {beats}/min 04/07/2018 [facility]: [facility] [place] Respitory Rate 18 04/07/2018 [facility] [place] Systolic (mm Hg) 128 04/07/2018 [facility] [place] Diastolic (mm Hg) 66 04/07/2018 [facility] Temperature Oral (F) 98 F 04/07/2018 [facility] Heart Rate 72 {beats}/min 04/07/2018 [facility]: [facility] [place] Respitory Rate 18 04/07/2018 [facility] [place] Systolic (mm Hg) 128 04/07/2018 [facility] [place] Diastolic (mm Hg) 66 04/07/2018 [facility] Temperature Oral (F) 98 F 04/07/2018 [facility] Heart Rate 72 {beats}/min 04/07/2018 [facility]: [facility] [place] Respitory Rate 18 04/06/2018 [facility] [place] Systolic (mm Hg) 125 04/06/2018 [facility] [place] Diastolic (mm Hg) 74 04/06/2018 [facility] Temperature Oral (F) 97.8 F 04/06/2018 [facility] Heart Rate 73 {beats}/min 04/06/2018 [facility]: [facility] [place] Respitory Rate 18 04/06/2018 [facility] [place] Systolic (mm Hg) 125 04[facility]06/2018 [facility]: [facility] [place] Diastolic (mm Hg) 74 04/06/2018 [facility] Temperature Oral (F) 97.8 F 04/06/2018 SNF: [facility] Heart Rate 73 {beats}/min 04/06/2018 [facility] Respitory Rate 18 04[facility]06/2018 [facility] [place] Systolic (mm Hg) 129 04/06/2018 [facility] [place] Diastolic (mm Hg) 83 04/06/2018 [facility] Temperature Oral (F) 98.3 F 04/06/2018 [facility] Heart Rate 66 {beats}/min 04/06/2018 [facility] [place] Respitory Rate 18 04/06/2018 [facility] [place] Systolic (mm Hg) 129 04/06/2018 SNF: [facility] [place] Diastolic (mm Hg) 83 04/06/2018 [facility] Temperature Oral (F) 98.3 F 04/06/2018 SNF: [facility] Heart Rate 66 {beats}/min 04/06/2018 SNF: [facility] Respitory Rate 17 04/06/2018 SNF: [facility] Systolic (mm Hg) 132 04/06/2018 SNF: [facility] [place] Diastolic (mm Hg) 74 04/06/2018 SNF: [facility] Temperature Oral (F) 98.8 F 04/06/2018 SNF: [facility] Heart Rate 70 {beats}/min 04/06/2018 SNF: [facility] Respitory Rate 17 04/06/2018 SNF: [facility] Systolic (mm Hg) 132 04/06/2018 SNF: [facility] Diastolic (mm Hg) 74 04/06/2018 SNF: [facility] Temperature Oral (F) 98.8 F 04/06/2018 SNF: [facility] Heart Rate 70 {beats}/min 04/06/2018 SNF: [facility] Respitory Rate 17 04/06/2018 SNF: [facility] Systolic (mm Hg) 132 04/06/2018 SNF: [facility] Diastolic (mm Hg) 74 04/06/2018 SNF: [facility] Temperature Oral (F) 98.8 F 04/06/2018 SNF: [facility] Heart Rate 70 {beats}/min 04/06/2018 SNF: [facility] Respitory Rate 17 04/06/2018 SNF: [facility] Systolic (mm Hg) 132 04/06/2018 SNF: [facility] Diastolic (mm Hg) 74 04/06/2018 SNF: [facility] Temperature Oral (F) 98.8 F 04/06/2018 SNF: [facility] Heart Rate 70 {beats}/min 04/06/2018 SNF: [facility] Respitory Rate 18 04/05/2018 SNF: [facility] Systolic (mm Hg) 138 04/05/2018 SNF: [facility] Diastolic (mm Hg) 74 04/05/2018 SNF: [facility] Temperature Oral (F) 98.1 F 04/05/2018 [facility] Heart Rate 88 {beats}/min 04/05/2018 [facility] Respitory Rate 18 04/05/2018 [facility] Systolic (mm Hg) 138 04/05/2018 [facility] [place] Diastolic (mm Hg) 74 04/05/2018 [facility] Temperature Oral (F) 98.1 F 04/05/2018 [facility] Heart Rate 88 {beats}/min 04/05/2018 [facility]: [facility] Respitory Rate 18 04[facility]05/2018 [facility] [place] Systolic (mm Hg) 147 04/05/2018 [facility] [place] Diastolic (mm Hg) 65 04/05/2018 [facility] Temperature Oral (F) 97.5 F 04/05/2018 [facility] Heart Rate 87 {beats}/min 04/05/2018 [facility] Respitory Rate 18 04/05/2018 [facility] [place] Systolic (mm Hg) 147 04/05/2018 [facility] [place] Diastolic (mm Hg) 65 04/05/2018 [facility] Temperature Oral (F) 97.5 F 04/05/2018 [facility] Heart Rate 87 {beats}/min 04/05/2018 [facility] [place] Respitory Rate 17 04[facility]05/2018 [facility]: [facility] [place] Systolic (mm Hg) 120 04/05/2018 SN[facility]: [facility] [place] Diastolic (mm Hg) 72 04/05/2018 [facility] Temperature Oral (F) 98.8 F 04/05/2018 SN[facility]: [facility] Heart Rate 65 {beats}/min 04/05/2018 [facility]: [facility] Respitory Rate 17 04/05/2018 SN[facility]: [facility] [place] Systolic (mm Hg) 120 04/05/2018 [facility] [place] Diastolic (mm Hg) 72 04/05/2018 SNF: [facility] Temperature Oral (F) 98.8 F 04/05/2018 [facility] Heart Rate 65 {beats}/min 04/05/2018 [facility] [place] Respitory Rate 17 04/05/2018 [facility] [place] Systolic (mm Hg) 120 04/05/2018 [facility] [place] Diastolic (mm Hg) 72 04/05/2018 SNF: [facility] Temperature Oral (F) 98.8 F 04/05/2018 [facility] Heart Rate 65 {beats}/min 04/05/2018 [facility] [place] Respitory Rate 17 04/05/2018 [facility] [place] Systolic (mm Hg) 120 04/05/2018 [facility] [place] Diastolic (mm Hg) 72 04/05/2018 SNF: [facility] Temperature Oral (F) 98.8 F 04/05/2018 [facility] Heart Rate 65 {beats}/min 04/05/2018 [facility] Respitory Rate 18 04/04/2018 SN[facility]: [facility] [place] Systolic (mm Hg) 125 04/04/2018 [facility] [place] Diastolic (mm Hg) 76 04/04/2018 [facility] Temperature Oral (F) 97.4 F 04/04/2018 [facility] Heart Rate 78 {beats}/min 04/04/2018 [facility] [place] Respitory Rate 18 04/04/2018 [facility]: [facility] [place] Systolic (mm Hg) 125 04/04/2018 [facility] [place] Diastolic (mm Hg) 76 04/04/2018 SN[facility]: [facility] Temperature Oral (F) 97.4 F 04/04/2018 [facility]: [facility] [place] Heart Rate 78 {beats}/min 04/04/2018 SN[facility]: [facility] [place] Respitory Rate 18 04/04/2018 [facility] [place] Systolic (mm Hg) 129 04/04/2018 SN[facility]: [facility] [place] Diastolic (mm Hg) 74 04/04/2018 SNF: [facility] Temperature Oral (F) 97.5 F 04/04/2018 SNF: [facility] Heart Rate 80 {beats}/min 04/04/2018 SNF: [facility] [place] Respitory Rate 18 04/04/2018 SNF: [facility] [place] Systolic (mm Hg) 129 04/04/2018 SNF: [facility] [place] Diastolic (mm Hg) 74 04/04/2018 SNF: [facility] Temperature Oral (F) 97.5 F 04/04/2018 SNF: [facility] Heart Rate 80 {beats}/min 04/04/2018 SNF: [facility] [place] Respitory Rate 17 04/04/2018 SNF: [facility] Systolic (mm Hg) 140 04/04/2018 SNF: [facility] Diastolic (mm Hg) 69 04/04/2018 SNF: [facility] Temperature Oral (F) 98.3 F 04/04/2018 SNF: [facility] Heart Rate 85 {beats}/min 04/04/2018 [facility] Resp[facility] Rate 17 04/04/2018 SNF: [facility] [place] Systolic (mm Hg) 140 04/04/2018 SNF: [facility] [place] Diastolic (mm Hg) 69 04/04/2018 SNF: [facility] Temperature Oral (F) 98.3 F 04/04/2018 SNF: [facility] Heart Rate 85 {beats}/min 04/04/2018 SNF: [facility] [place] Respitory Rate 17 04/04/2018 SNF: [facility] [place] Systolic (mm Hg) 159 04/04/2018 [facility] [place] Diastolic (mm Hg) 68 04/04/2018 SNF: [facility] Temperature Oral (F) 98.6 F 04/04/2018 SNF: [facility] Heart Rate 85 {beats}/min 04/04/2018 [facility]: [facility] Respitory Rate 17 04/03/2018 SNF: [facility] Systolic (mm Hg) 159 04/03/2018 SNF: [facility] Diastolic (mm Hg) 68 04/03/2018 SNF: [facility] Temperature Oral (F) 98.6 F 04/03/2018 SNF: [facility] Heart Rate 85 {beats}/min 04/03/2018 SNF: [facility] Heart Rate 62 {beats}/min 04/03/2018 SNF: [facility] Heart Rate 62 {beats}/min 04/03/2018 SNF: [facility] Respitory Rate 20 04/03/2018 SNF: [facility] Systolic (mm Hg) 141 04/03/2018 SNF: [facility] Diastolic (mm Hg) 78 04/03/2018 SNF: [facility] Temperature Oral (F) 97.9 F 04/03/2018 SNF: [facility] Heart Rate 79 {beats}/min 04/03/2018 SNF: [facility] Respitory Rate 20 04/03/2018 SNF: [facility] Systolic (mm Hg) 141 04/03/2018 SNF: [facility] Diastolic (mm Hg) 78 04/03/2018 SNF: [facility] Temperature Oral (F) 97.9 F 04/03/2018 SNF: [facility] Heart Rate 79 {beats}/min 04/03/2018 SNF: [facility] Respitory Rate 20 04/02/2018 SNF: [facility] Systolic (mm Hg) 126 04/02/2018 SNF: [facility] Diastolic (mm Hg) 73 04/02/2018 SNF: [facility] Temperature Oral (F) 98.2 F 04/02/2018 SNF: [facility] Heart Rate 64 {beats}/min 04/02/2018 SNF: [facility] Respitory Rate 20 04/02/2018 SNF: [facility] Systolic (mm Hg) 126 04/02/2018 SNF: [facility] Diastolic (mm Hg) 73 04/02/2018 SNF: [facility] Temperature Oral (F) 98.2 F 04/02/2018 SNF: [facility] Heart Rate 64 {beats}/min 04/02/2018 [facility] Respitory Rate 20 04/02/2018 [facility] [place] Systolic (mm Hg) 118 04/02/2018 SN[facility]: [facility] [place] Diastolic (mm Hg) 65 04/02/2018 SNF: [facility] Temperature Oral (F) 97.8 F 04/02/2018 SNF: [facility] Heart Rate 65 {beats}/min 04/02/2018 [facility]: [facility] [place] Respitory Rate 20 04/02/2018 SN[facility]: [facility] [place] Systolic (mm Hg) 118 04/02/2018 SN[facility]: [facility] [place] Diastolic (mm Hg) 65 04/02/2018 SNF: [facility] Temperature Oral (F) 97.8 F 04/02/2018 SNF: [facility] Heart Rate 65 {beats}/min 04/02/2018 SNF: [facility] Respitory Rate 20 04/01/2018 SNF: [facility] Temperature Oral (F) 97.9 F 04/01/2018 SNF: [facility] Respitory Rate 20 04/01/2018 SNF: [facility] Temperature Oral (F) 97.9 F 04/01/2018 SNF: [facility] Weight 191 04/01/2018 SNF: [facility] Weight 191 04/01/2018 SNF: [facility] Respitory Rate 18 04/01/2018 SNF: [facility] Systolic (mm Hg) 122 04/01/2018 [facility]: [facility] [place] Diastolic (mm Hg) 70 04/01/2018 SNF: [facility] Temperature Oral (F) 97.8 F 04/01/2018 SNF: [facility] Heart Rate 70 {beats}/min 04/01/2018 [facility] Respitory Rate 18 04/01/2018 SN[facility]: [facility] Systolic (mm Hg) 122 04/01/2018 SNF: [facility] Diastolic (mm Hg) 70 04/01/2018 SNF: [facility] Temperature Oral (F) 97.8 F 04/01/2018 SNF: [facility] Heart Rate 70 {beats}/min 04/01/2018 SNF: [facility] [place] Respitory Rate 18 04/01/2018 SNF: [facility] Systolic (mm Hg) 122 04/01/2018 SNF: [facility] [place] Diastolic (mm Hg) 70 04/01/2018 SNF: [facility] Temperature Oral (F) 97.8 F 04/01/2018 SNF: [facility] Heart Rate 70 {beats}/min 04/01/2018 SNF: [facility] Respitory Rate 18 04/01/2018 SNF: [facility] Systolic (mm Hg) 122 04/01/2018 SNF: [facility] Diastolic (mm Hg) 70 04/01/2018 SNF: [facility] Temperature Oral (F) 97.8 F 04/01/2018 SNF: [facility] Heart Rate 70 {beats}/min 04/01/2018 SNF: [facility] Respitory Rate 18 04/01/2018 SNF: [facility] Systolic (mm Hg) 124 04/01/2018 [facility] Diastolic (mm Hg) 72 04/01/2018 SNF: [facility] Temperature Oral (F) 97.2 F 04/01/2018 SNF: [facility] Heart Rate 74 {beats}/min 04/01/2018 SNF: [facility] Respitory Rate 18 04/01/2018 SNF: [facility] Systolic (mm Hg) 124 04/01/2018 SNF: [facility] [place] Diastolic (mm Hg) 72 04/01/2018 SNF: [facility] Temperature Oral (F) 97.2 F 04/01/2018 SNF: [facility] Heart Rate 74 {beats}/min 04/01/2018 [facility] Respitory Rate 18 03/31/2018 SNF: [facility] Systolic (mm Hg) 122 03/31/2018 SNF: [facility] Diastolic (mm Hg) 76 03/31/2018 SNF: [facility] Temperature Oral (F) 97.4 F 03/31/2018 SNF: [facility] Heart Rate 76 {beats}/min 03/31/2018 SNF: [facility] [place] Respitory Rate 18 03/31/2018 SNF: [facility] [place] Systolic (mm Hg) 122 03/31/2018 SNF: [facility] [place] Diastolic (mm Hg) 76 03/31/2018 SNF: [facility] Temperature Oral (F) 97.4 F 03/31/2018 SNF: [facility] Heart Rate 76 {beats}/min 03/31/2018 SNF: [facility] Respitory Rate 16 03/31/2018 SNF: [facility] Systolic (mm Hg) 110 03/31/2018 SNF: [facility] Diastolic (mm Hg) 75 03/31/2018 SNF: [facility] Temperature Oral (F) 97.5 F 03/31/2018 SNF: [facility] Heart Rate 74 {beats}/min 03/31/2018 SNF: [facility] Respitory Rate 16 03/31/2018 SNF: [facility] Systolic (mm Hg) 110 03/31/2018 SNF: [facility] Diastolic (mm Hg) 75 03/31/2018 SNF: [facility] Temperature Oral (F) 97.5 F 03/31/2018 SNF: [facility] Heart Rate 74 {beats}/min 03/31/2018 [facility] Respitory Rate 16 03/31/2018 [facility] [place] Systolic (mm Hg) 110 03/31/2018 SNF: [facility] Diastolic (mm Hg) 75 03/31/2018 SNF: [facility] Temperature Oral (F) 97.5 F 03/31/2018 SNF: [facility] Heart Rate 78 {beats}/min 03/31/2018 [facility] [place] Respitory Rate 16 03/31/2018 SNF: [facility] Systolic (mm Hg) 110 03/31/2018 SNF: [facility] [place] Diastolic (mm Hg) 75 03/31/2018 SNF: [facility] Temperature Oral (F) 97.5 F 03/31/2018 SNF: [facility] Heart Rate 78 {beats}/min 03/31/2018 SNF: [facility] [place] Respitory Rate 18 03/30/2018 SNF: [facility] [place] Systolic (mm Hg) 148 03/30/2018 [facility] [place] Diastolic (mm Hg) 74 03/30/2018 SNF: [facility] Temperature Oral (F) 97.6 F 03/30/2018 SNF: [facility] Heart Rate 77 {beats}/min 03/30/2018 [facility] Respitory Rate 18 03/30/2018 SNF: [facility] Systolic (mm Hg) 148 03/30/2018 SNF: [facility] Diastolic (mm Hg) 74 03/30/2018 SNF: [facility] Temperature Oral (F) 97.6 F 03/30/2018 SNF: [facility] Heart Rate 77 {beats}/min 03/30/2018 SNF: [facility] Respitory Rate 18 03/29/2018 SNF: [facility] Systolic (mm Hg) 150 03/29/2018 [facility] Diastolic (mm Hg) 82 03/29/2018 SNF: [facility] Temperature Oral (F) 98 F 03/29/2018 SNF: [facility] Heart Rate 74 {beats}/min 03/29/2018 [facility] [place] Respitory Rate 18 03/29/2018 SNF: [facility] Systolic (mm Hg) 150 03/29/2018 SN[facility]: [facility] Diastolic (mm Hg) 82 03/29/2018 SNF: [facility] Temperature Oral (F) 98 F 03/29/2018 SNF: [facility] Heart Rate 74 {beats}/min 03/29/2018 [facility] 03/[facility]/2018 SNF: [facility] Systolic (mm Hg) 144 03/29/2018 SNF: [facility] [place] Diastolic (mm Hg) 75 03/29/2018 SNF: [facility] Temperature Oral (F) 98.2 F 03/29/2018 SNF: [facility] Heart Rate 80 {beats}/min 03/29/2018 [facility] [place] Resp[facility] Rate 20 03/29/2018 SNF: [facility] Systolic (mm Hg) 144 03/29/2018 SNF: [facility] [place] Diastolic (mm Hg) 75 03/29/2018 SNF: [facility] Temperature Oral (F) 98.2 F 03/29/2018 SNF: [facility] Heart Rate 80 {beats}/min 03/29/2018 [facility] Weight 189 03/28/2018 SNF: [facility] Height 67 03/28/2018 SNF: [facility] Weight 189 03/28/2018 SNF: [facility] Height 67 03/28/2018 SNF: [facility] Respitory Rate 20 03/28/2018 SNF: [facility] Systolic (mm Hg) 139 03/28/2018 SNF: [facility] [place] Diastolic (mm Hg) 62 03/28/2018 SNF: [facility] Temperature Oral (F) 98.3 F 03/28/2018 SNF: [facility] Heart Rate 82 {beats}/min 03/28/2018 SNF: [facility] Respitory Rate 20 03/28/2018 SNF: [facility] Systolic (mm Hg) 139 03/28/2018 SNF: [facility] Diastolic (mm Hg) 62 03/28/2018 SNF: [facility] Temperature Oral (F) 98.3 F 03/28/2018 SNF: [facility] Heart Rate 82 {beats}/min 03/28/2018 [facility] Resp[facility] Rate 20 03/28/2018 SNF: [facility] Systolic (mm Hg) 129 03/28/2018 SNF: [facility] Diastolic (mm Hg) 85 03/28/2018 SNF: [facility] Temperature Oral (F) 98.6 F 03/28/2018 SNF: [facility] Heart Rate 84 {beats}/min 03/28/2018 SNF: [facility] Respitory Rate 20 03/28/2018 SNF: [facility] Systolic (mm Hg) 129 03/28/2018 SNF: [facility] Diastolic (mm Hg) 85 03/28/2018 SNF: [facility] Temperature Oral (F) 98.6 F 03/28/2018 SNF: [facility] Heart Rate 84 {beats}/min 03/28/2018 SNF: [facility] Encounters Location Location Details Encounter Type Encounter Number Reason For Visit Attending Provider ADM Date DC Date Status Source Procedures Procedure Code Date Perfomer Comments Source
[2018-06-22 22:45] VITALS: BP_SYST 111; BP_SYST 119; BP_DIAS 58; BP_DIAS 64
[2018-06-22 23:00] VITALS: BP 113/63
[2018-06-22] MEDS ORDERED: SODIUM CHLORIDE 0.9% 250ML 250 ML ONE (23:46)
[2018-06-22 23:59] VITALS: BP 122/50
[2018-06-23] VITALS (14 sets, daily range): BP systolic 113–142; BP diastolic 50–91
[2018-06-23] MEDS: MORPHINE SULFATE INJ 4 MG/ML INJ 1ML IV PRN ×4 (00:50→14:11)
[2018-06-23] MEDS: PIPERACILLIN/TAZO 2.25 GM 50 ML IV SCH ×4 (04:12→21:41)
[2018-06-23 05:09] LABS: ANION GAP 16.8 mmol/L (8-16); CALCIUM 8.3 mg/dL (8.4-10.2); CREATININE, SERUM 2.45 mg/dL (0.72-1.25); POTASSIUM 4.8 mmol/L (3.5-5.1)
[2018-06-23] MEDS ORDERED: SODIUM CHLORIDE 0.9% 250ML 250 ML ONE ×2 (05:31→21:18)
[2018-06-23] MEDS ORDERED: CALCITRIOL 0.25 MCG CAP PO SCH (09:30)
[2018-06-23] MEDS ORDERED: OXYCODONE/ACETAMINOPHEN 5-325 1 EACH TABLET PO PRN (09:30)
[2018-06-23 10:14] LABS: BASOPHILS % 0.2 % (0.0-1.0); EOSINOPHILS # (AUTO) 0.1 (0.0-0.4); EOSINOPHILS % 0.4 % (0.0-6.0); HEMATOCRIT 26.7 % (38.2-49.6); LYMPHOCYTES # (AUTO) 0.7 (1.0-3.2); MEAN CORPUSCULAR HGB CONC 33.7 g/dL (31-35); MEAN CORPUSCULAR VOLUME 86.1 fL (81-99); MONOCYTES # (AUTO) 1.1 (0.2-0.8); MONOCYTES % 6.2 % (4.4-11.3); NEUTROPHILS # (AUTO) 15.7 (2.1-6.9); NEUTROPHILS % 88.1 % (38.7-80.0); PLATELET COUNT 300 x10e3/uL (140-360); RED CELL DISTRIBUTION WIDTH 16.7 % (11.7-14.4)
[2018-06-23] MEDS: PREDNISONE 5 MG TAB PO SCH (10:56)
--- NOTE | 2018-06-23 10:59 | NUR ---
WOUND CARE CONSULTATION - INITIAL EVALUATION Patient admitted from SNF to ER for severe joint pain ongoing for 1 week. On admission patient was diagnosed with Anemia, Pyelonephritis, CKD Stage IV. Wound Care Consulted for Sacral Wound Evaluation and Treatment Recommendation. WBC21.92 HGB6.9 HCT21.3 NEUT%89.5 PMS251 ALB1.8 Xray-Hand & Wrist - Subacute Oblique fracture of distal ulnar mediaphysis with callous formation. extensive vascular calcifications present. BLE US Studies - Results Pending PATIENT VISIT: Marcial Score 1`0 Strict PUP Active Alternating Pressure air mattress set to current weight Patient generally weak, able to speak with family member at bedside. Patient Diapered Ostomy Present with Ostomy pouch in place. - Sacral Area - open area draining serosanguineous fluid onto Allevyn Foam Sacrum dressing with purple area that does not ivanna. Patient complaining of sharp paint to the area upon palpation. - Right Foot plantar presents with full thickness ulceration, annular shaped with calloused periwound. Base of wound palpates to bone and tendon but unable to visualize base. Compared to images spouse has wound appears to be healing slow. Pitting Edema +3 from ankle to toes. Foot appears larger than left foot. Family member states wound previously being treated with hydrogel mixed with sugar during the day and Santyl collagenase at night. Other Treatments consisted of Diluted Betadine wet to dry dressings and Xeroform. - Poor mobility at this time. Bed Bound with 1 person assist to turn while in bed. Prefers to turn to right side. Recommendations reviewed with family member and patient and agreeable to treatment plan. IMPRESSION: 1. Sacral - Stage II Pressure Ulcer with DTI - Present On Admission 2. Right Foot Plantar - DFU grade 3 - Very Slow Healing Ulcer. RECOMMENDATION: 1. Right Foot DFU Grade 3 - - Cleanse wound with NS and 4x4 gauze - Apply Drawtex Strips lightly packed to wound bed and cover with 4x4 gauze + ABD pad then wrap with Kerlix Daily. 2. Sacral -Stage II with DTI- Present On Admission - Cleanse wound with NS and 4x4 gauze - Apply Venelex Ointment and Cover with Allevyn Foam Sacrum Dressing Daily 3. Continue Alternating Pressure Air Mattress 4. Turn and Reposition every 2 hours using turning schedule clock. 5. Continue Strict PUP 6. Continue Bilateral Heel Protectors 7. Maintain HOB < or = to 30 degrees as tolerated. Thank you for consulting with Wound Care. Addendum: 06/23/18 at 1116 by Jarred Conner RN Amended: Links added.
[2018-06-23] MEDS: TACROLIMUS 1 MG CAP PO SCH (11:01)
[2018-06-23] MEDS ORDERED: POTASSIUM CHLORIDE 20 MEQ TAB CR PO SCH (12:00)
[2018-06-23] MEDS ORDERED: POTASSIUM CHLORIDE 10MEQ EA PO SCH (12:00)
--- NOTE | 2018-06-23 13:01 | NUR ---
Nutrition Intervention Note RD Recommendation(s) for Physician: -Continue ADA 1800 as ordered -Rec Glucerna TID to promote protein-calorie intake -Rec MVi w/ minerals, vitamin C 500 mg once a day, and zinc sulfate 220 mg once a day x 10 days to promote wound healing Plan of Care: RD following, monitoring for tolerance and adequacy, ONS rec Nutrition reason for involvement: Nutrition Risk Trigger MST RD Assessment 06/23 Chart reviewed. 63yo M, who was admitted from SNF to ER for severe joint pain ongoing for 1 week. Pt was well known to me from his previous admissions. Pt was d/c from [facility] to a halfway on 06/17/2018. Pt continued to have poor appetite. Pt complained of the foods at halfway taste terrible. Pt would like to have Glucerna TID while in the hospital. No GI complains noted. Pt stated it takes a while for me to chew the foods but denied any swallowing difficulty. Pt refused texture modification. on bedside assists with feeding. Will continue to monitor and follow. Please consult as needed. 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 Sacral - Stage II Pressure Ulcer with DTI - Present On Admission 2. Right Foot Plantar - DFU grade 3 - Very Slow Healing Ulcer. Labs: Na 130 L, BUN 84 H, Creatinine 2.45 H, Glucose 177 H, Ca 8.3 L Meds: lasix, K dur, prednisone Ht: 66in Wt: 207.06lb BMI: 33.4kg/m2 IBW: 142lb Malnutrition Evaluation (06/23) The patient does not meet criteria for a specified degree of malnutrition at this time. Will re-evaluate at follow-up as appropriate. Energy intake: <75% of estimated energy requirements for >7 days Weight loss: ~7.8% weight loss in a year Fat loss: N/A Muscle loss: N/A Supporting Evidence: Fluid accumulation: On lasix Functional Status: measurably reduced Nutrition Prescription (Diet Order): ADA diet Estimated Nutritional Needs: Calories: 2050 - 2460kcal (25-30kcal/kg/d) Weight used: UBW of 181lbs Protein : 66 - 98g (0.8-1.2g/kg/d) Weight used: UBW of 181lbs Diet Adequacy: Not meeting calorie needs, Not meeting protein needs Diet Education Needs Assessment: Diet education indicated, but patient not appropriate for education at this time. Nutrition Care Level: mod Nutrition Diagnosis: Inadequate oral intake related to acute illness as evidenced by pt reported poor appetite. Goal: Patient will meet 75-100% of estimated needs by follow up Progress: N/A Interventions: Carb-modified diet, Commercial beverage Monitoring/Evaluation: Total energy intake, Total protein intake, Modified diet, Liquid supplement, Weight change Signed: Suyapa Rose, MS, RD, LD
[2018-06-23] MEDS: HYDRALAZINE HCL 25 MG TAB PO SCH ×2 (14:11→21:42)
[2018-06-23] MEDS ORDERED: SANTYL TOP SCH (21:00)
[2018-06-23] MEDS: LATANOPROST(OPTH) 2.5 ML BTL OP SCH (21:41)
[2018-06-23] MEDS: BUMETANIDE INJ 0.25MG/ML 4ML VIAL IV SCH (21:42)
[2018-06-23] MEDS: COLLAGENASE OINTMENT 30 GM TUBE TP SCH (21:42)
[2018-06-23] MEDS: OXYCODONE/ACETAMINOPHEN 5-325 1 EACH TABLET PO PRN ×2 (21:58→21:59)
--- NOTE | 2018-06-23 22:50 | Consultation ---
DATE OF CONSULTATION: 06/23/2018 HISTORY OF PRESENT ILLNESS: Mr. Sterling Rios is known to me. 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 He has also developed heel and sacral decubitus. He is currently lying supine, complaining of pain in the left hand wrist area. Area slightly swollen. Otherwise, he is poor historian and is status post pain medication and drowsy though, although follows commands. No nausea or vomiting reported. No fever reported. ALLERGIES: NO APPARENT DRUG ALLERGIES. CURRENT LABORATORY DATA: Sodium 130, potassium 4.8, chloride 93, bicarb 24, BUN 84, and creatinine 2.5. He was significantly anemic yesterday with a white count of 21,900, hemoglobin 6.9, status post transfusion with a hemoglobin 9 today. White count remains elevated at 17.8. Has had urine and blood cultures done. FAMILY HISTORY: Significant for diabetes and hypertension. CURRENT MEDICATIONS: Prograf 2 mg p.o. b.i.d., prednisone 5 mg p.o. daily, potassium chloride 10 mEq p.o. t.i.d., oxycodone, ondansetron, morphine sulfate p.r.n. He is on Xalatan 2.5 mg ophthalmic, mag oxide 400 mg p.o. daily. He is on hydralazine 100 mg p.o. t.i.d., furosemide 40 mg daily. He is on Benadryl p.r.n. He is on piperacillin-tazobactam. For dose schedule, please see MAR. PHYSICAL EXAMINATION: GENERAL: Awake, alert, lying supine, in no apparent respiratory distress. VITAL SIGNS: Blood pressure 137/64, pulse rate 98, afebrile, oxygen saturation 98% on 2 L nasal cannula. HEAD AND NECK: Cornea clear. Neck veins could not be appreciated. LUNGS: Relatively clear. Supine exam. HEART: S1, S2 audible. ABDOMEN: Otherwise soft, nontender. EXTREMITIES: Left wrist with mild edema of the hand with a 2+ edema of bilateral lower extremity. Workup includes x-ray, shows subacute oblique fracture of the distal ulna metaphysis with callus formation. Laboratory tests as above. IMPRESSION: 1. Underlying chronic kidney disease, underlying diabetes, kidney transplant in 2013 with chronic rejection. I will discontinue his scheduled potassium. We will discontinue his furosemide. At this point in time, has evidence of 3rd spacing edema, acute on chronic kidney failure. 2. Mild hyponatremia secondary to pain and possible ADH release. We will diurese with IV Bumex. Discussed with family member. We will consult Wound Care, Dr. Bradford. Consider infectious disease consultation. He was recently here with pneumonia and urinary tract infection. Discussed with family. Please see orders. MD CHIQUI Smalls/MODL /[id number]
--- NOTE | 2018-06-23 22:51 | Diagnostic Imaging Report ---
EXAMINATION: CHEST SINGLE (PORTABLE) COMPARISON: Chest x-ray 06/16/2018 INDICATION: ^shortness of breath, history of pneumonia, CHF DISCUSSION: Frontal view of the chest obtained at 2231 hours. HEART AND MEDIASTINUM: Stable cardiomegaly. Pulmonary vasculature is prominent and indistinct LINES: None. LUNGS: Worsening patchy airspace opacities have developed throughout the right lung and the left perihilar region. PLEURA: Blunting of the right lateral costophrenic angle is increasing suggestive of pleural effusion. No pneumothorax. BONES AND SOFT TISSUES: No focal osseous lesion. The soft tissues are normal. IMPRESSION: Cardiomegaly and pulmonary vascular congestion. Worsening pulmonary airspace opacities are suggestive of pulmonary edema or pneumonia in the appropriate clinical setting. Right pleural effusion is enlarging. Signed by: Dr. Randi Tejeda MD on 06/23/2018 10:48 PM
[2018-06-24] VITALS (9 sets, daily range): BP systolic 109–155; BP diastolic 56–92
--- NOTE | 2018-06-24 01:18 | NUR ---
patient wanted to stay on his right side, he feels more comfortable. will continue to monitor.
[2018-06-24] MEDS: PIPERACILLIN/TAZO 2.25 GM 50 ML IV SCH ×4 (03:30→20:26)
--- NOTE | 2018-06-24 04:00 | NUR ---
REFUSED TO TURN, REMAIN ON HIS BACK.
[2018-06-24] MEDS: BUMETANIDE INJ 0.25MG/ML 4ML VIAL IV SCH ×3 (05:54→21:20)
[2018-06-24 05:59] LABS: ALBUMIN 1.6 g/dL (3.5-5.0); ALBUMIN/GLOBULIN RATIO 0.5 (0.8-2.0); ANION GAP 20.1 mmol/L (8-16); CALCIUM 8.3 mg/dL (8.4-10.2); CREATININE, SERUM 2.72 mg/dL (0.72-1.25); POTASSIUM 5.1 mmol/L (3.5-5.1)
[2018-06-24] MEDS: OXYCODONE/ACETAMINOPHEN 5-325 1 EACH TABLET PO PRN ×2 (06:00→20:28)
--- NOTE | 2018-06-24 06:00 | NUR ---
REFUSED TO TURN, REMAIN ON HIS BACK.
[2018-06-24 07:21] LABS: IRON 13 ug/dL (65-175); TRANSFERRIN < 70 mg/dL (174-364)
--- NOTE | 2018-06-24 07:37 | NUR ---
ROUNDS DONE, CALL LIGHT REMAIN IN REACH.
[2018-06-24 07:41] LABS: FERRITIN 1897.52 ng/mL (21.81-274.66)
[2018-06-24] MEDS ORDERED: FLUCONAZOLE 100 MG TAB PO ONE (09:00)
[2018-06-24] MEDS: ZINC ACETATE TOP SCH ×2 (09:00→17:00)
[2018-06-24] MEDS ORDERED: FUROSEMIDE 40 MG TAB PO SCH (09:00)
[2018-06-24] MEDS ORDERED: [UNRECOGNIZED DRUG - OTHER] TOP SCH (09:00)
[2018-06-24] MEDS ORDERED: MAGNESIUM OXIDE 400 MG TAB PO SCH (09:00)
[2018-06-24] MEDS: [UNRECOGNIZED DRUG - OTHER] TOP SCH ×2 (09:00→17:00)
[2018-06-24] MEDS ORDERED: ZINC ACETATE TOP SCH (09:00)
[2018-06-24] MEDS: HYDRALAZINE HCL 25 MG TAB PO SCH ×3 (09:04→20:28)
[2018-06-24] MEDS: TACROLIMUS 1 MG CAP PO SCH ×2 (09:04→17:05)
[2018-06-24] MEDS: FOLIC ACID/CYANOCOB/PYRIDOXINE TAB PO SCH (09:05)
[2018-06-24] MEDS: MAGNESIUM OXIDE 400 MG TAB PO SCH (09:05)
[2018-06-24] MEDS: CALCITRIOL 0.25 MCG CAP PO SCH (09:13)
[2018-06-24 09:15] LABS: BASOPHILS % 0.2 % (0.0-1.0); EOSINOPHILS # (AUTO) 0.1 (0.0-0.4); EOSINOPHILS % 0.3 % (0.0-6.0); HEMATOCRIT 28.9 % (38.2-49.6); HEMOGLOBIN 9.5 g/dL (14.0-18.0); LYMPHOCYTES # (AUTO) 0.6 (1.0-3.2); LYMPHOCYTES % 3.7 % (18.0-39.1); MEAN CORPUSCULAR HEMOGLOBIN 29.1 pg (28-32); MEAN CORPUSCULAR HGB CONC 32.9 g/dL (31-35); MEAN CORPUSCULAR VOLUME 88.7 fL (81-99); MONOCYTES # (AUTO) 0.8 (0.2-0.8); MONOCYTES % 5.1 % (4.4-11.3); NEUTROPHILS # (AUTO) 14.4 (2.1-6.9); NEUTROPHILS % 89.5 % (38.7-80.0); PLATELET COUNT 338 x10e3/uL (140-360); RED BLOOD COUNT 3.26 x10e6/uL (4.3-5.7); RED CELL DISTRIBUTION WIDTH 17.2 % (11.7-14.4)
[2018-06-24] MEDS ORDERED: ONDANSETRON HCL 4 MG ORAL DISINTEGRATING TAB PO PRN (09:15)
[2018-06-24] MEDS: BRIMONIDINE/TIMOLOL (OPTH SOLN 5 ML DRPETTE OP SCH (09:17)
[2018-06-24] MEDS: MORPHINE SULFATE INJ 4 MG/ML INJ 1ML IV PRN (09:17)
[2018-06-24] MEDS: SODIUM CHLORIDE FLUSH 10 ML SYR INJ PRN ×2 (09:17→15:17)
[2018-06-24] MEDS: BALSAM PERU/CASTOR OIL 60 GM OINT...G. TP SCH ×2 (09:17→16:53)
[2018-06-24 09:24] LABS: ANION GAP 23.2 mmol/L (8-16); CALCIUM 8.3 mg/dL (8.4-10.2); CREATININE, SERUM 2.56 mg/dL (0.72-1.25)
[2018-06-24 09:26] LABS: POTASSIUM 5.2 mmol/L (3.5-5.1)
[2018-06-24] MEDS ORDERED: PREDNISONE 5 MG TAB PO ONE (09:30)
[2018-06-24 09:41] LABS: IRON 13 ug/dL (65-175); TRANSFERRIN < 70 mg/dL (174-364)
[2018-06-24] MEDS ORDERED: LACTULOSE SYRUP 20 GM/30 ML UDC PO ONE (13:00)
[2018-06-24] MEDS ORDERED: SOD POLYSTYRENE SULFONATE SUSP 15 GM/60 ML BTL PO ONE (13:00)
--- NOTE | 2018-06-24 14:13 | NUR ---
CASE MANAGEMENT INITIAL ASSESSMENT Balance Bridge Assembler to bedside to discuss plan of care with patient/family. CM/SW role and care transitions discussed. Anticipated discharge plan discussed along with duration of care. CM/SW discussed patients right to make decisions in care. CM/SW work hours given. Patient lives: WITH [facility], BUT WAS FROM SNF Admit/Transfer: TRANSFER FROM [facility] / SNF TO ER Hospital/ER visits since last admit: 06/04/18 - POA/Emergency contact: [facility] / LEE SMITH @ [phone] Current/Previous Home Health: PT HAS HOME HEALTH, BUT DOES NOT REMEMBER THE NAME OF THE AGENCY. RECEIVES SN AND PT. PCP/Follow-up Care: DR. HESS Current/Previous DME: KERVIN ROBLERO, IVAN Medications (referring to index hospitalization or the first time you were in the hospital) a. Were changes made in your medications when you were in the hospital on [date of index hospitalization]? Yes b. Did you understand the changes? Yes Explain: PT TO SNF c. Were you able to obtain your new medications right away? n/a SNF only d. Were you able to take your medications like the doctor wanted you to? Yes e. Did the hospital give you an accurate, easy to understand list of medications when you left? n/a SNF only Scale of 1-10 how comfortable does patient feel with disease management in outpatient setting: STATES OK AT THE SNF Other Services: NONE Employment Status: UNEMPLOYED Areas of Concerns: WOUND CARE Referral Needs: SNF VS LTACH Education Needs: NONE IMM/WHITAKER given and signed (if applicable): SIGNED AT ADMISSION. Goal for discharge: SNF VS LTACH CM/SW left business card at the bedside with contact information. Name and number was also written on the patients whiteboard. Patient verbalized understanding of discussion. CM will follow-up with ongoing discharge and transition of care needs.
[2018-06-24] MEDS: SODIUM BICARBONATE 650 MG TAB PO SCH (16:57)
[2018-06-24] MEDS: LATANOPROST(OPTH) 2.5 ML BTL OP SCH (20:26)
[2018-06-24] MEDS: COLLAGENASE OINTMENT 30 GM TUBE TP SCH (20:28)
--- NOTE | 2018-06-24 23:00 | NUR ---
Received patient from Jayce Springer, for continuity of care.
--- NOTE | 2018-06-24 23:47 | Consultation ---
DATE OF CONSULTATION: Wound Consultation Thank you Dr. Herbert for asking us to see this patient. HISTORY OF PRESENT ILLNESS: A 63-year-old male patient admitted with right foot ulcer and coccyx ulcer. Wound consult called. The patient has history of renal transplant, chronic kidney disease, anemia, leukocytosis, has a chronic nonhealing ulcer to the right plantar foot from January, has Charcot foot, bone exposed, Cesar grade 3, seen by Dr. Barrera. On the coccyx, the patient has a deep tissue injury. The patient is awake, weak, lethargic, and not walking. PERSONAL HISTORY: History of smoking in the past. No alcohol or drugs. PAST MEDICAL HISTORY: Hypertension, diabetes, CHF, chronic kidney disease, kidney transplant, and colostomy. PHYSICAL EXAMINATION: GENERAL: Blood pressure 118/70, pulse of 80. HEENT: Normal. NECK: No JVD. LUNGS: Clear. ABDOMEN: Soft. LOWER EXTREMITIES: Right plantar foot, the patient has a wound measures approximately 3 x 3 x 3 cm, bone exposed. No drainage noted. Wound margin has callus. Sacral area, the patient has stage II with a DTI and measures 1 x 0.3 x 0.1 cm. ASSESSMENT: Stage II with a DTI to the sacrum. PLAN: Apply Mepilex to the sacrum and follow wound care orders per socket puller. Suggests Hydrogel, Maxorb, and Kerlix tape to the right plantar foot. Thank you for consultation. MD PASTORA Camarillo/MODBoyd /[id number]
[2018-06-25] VITALS (8 sets, daily range): BP systolic 99–155; BP diastolic 53–104
--- NOTE | 2018-06-25 01:32 | Consultation ---
DATE OF CONSULTATION: Pulmonary Consultation REASON FOR CONSULTATION: Right-sided pleural effusion. HISTORY OF PRESENT ILLNESS: Mr. Rios is a 63-year-old man, who was recently discharged from the hospital. The patient is a renal transplant patient. Most recently admitted to the hospital with a complaint of pneumonia, and the patient was discharged home. He presented again with increasing lethargy and weakness. Last time when he was admitted, he had pancytopenia. The patient had cadaveric renal transplant with chronic kidney rejection. He has diabetes, hypertension, peripheral arterial disease. Recently, he was treated for pneumonia and the patient's chest x-ray remarkably improved and he was discharged home. He presented back again with pain in the right arm. He had an x-ray done in the emergency room, which showed subacute oblique fracture of the distal ulnar metaphysis with callus formation. I am consulted for the right-sided pleural effusion. The patient is denying any complaints of shortness of breath. He feels weak and lethargic. REVIEW OF SYSTEMS: GENERAL: Denies any fever or chills. HEAD: Denies any head trauma. ENT: Denies any earache. CVS: Denies any chest pain. RESPIRATORY: Denies any shortness of breath. GI: Denies any nausea or vomiting. The rest of the review of systems are negative except as in the HPI. PAST MEDICAL HISTORY: 1. Status post renal transplant. The patient is on chronic immunosuppression. 2. History of stroke. 3. Congestive heart failure. 4. Diabetes. 5. Hypertension. FAMILY AND SOCIAL HISTORY: He does not smoke. Does not drink. PHYSICAL EXAMINATION: VITAL SIGNS: Temperature 98.6, pulse of 98, blood pressure 155/82, respiratory rate of 18, O2 saturation 100% on 2 L. HEENT: Head is atraumatic and normocephalic. NECK: Supple. He has generalized anasarca with arms and leg swelling. CHEST: Reduced air entry bilaterally. HEART: S1, S2 audible. ABDOMEN: Soft, nontender. EXTREMITIES: Pedal edema and wounds, which are dressed. LABORATORY DATA: White count of 16,000, hemoglobin 9.5, platelets 338. On the 15th when he came in, his white cell count was 21,000. Sodium 131, potassium 5.2, chloride 94, BUN 92, creatinine 2.56. Creatinine was 2.40 when he came in. Total ferritin 1897. Chest x-ray is showing right-sided pleural effusion. ASSESSMENT: Mr. Rios is a 63-year-old male, who presented to the emergency room with right-sided pleural effusion, shortness of breath, and generalized weakness. Current problems: 1. Status post kidney transplantation patient. 2. Long-term immunosuppressant use. 3. Worsening renal failure. 4. Anasarca and generalized fluid overload. 5. Right-sided pleural effusion. PLAN: 1. I will consult and do intervention for uterocentesis on the right side, likely due to chronic kidney disease, anasarca, and fluid overload. Unlikely . 2. Right-sided infiltrate. The patient is already on IV antibiotics. It should be continued. 3. Worsening renal failure and history of kidney transplant. Nephrology is following the patient. Discussed with the patient about . We will start the patient on transplant therapy. MD TAMIE Muñoz/MODL /[id number]
[2018-06-25] MEDS: DIPHENHYDRAMINE HCL 25 MG CAP PO PRN (02:12)
[2018-06-25] MEDS: MORPHINE SULFATE INJ 4 MG/ML INJ 1ML IV PRN ×3 (02:12→16:27)
[2018-06-25] MEDS: PIPERACILLIN/TAZO 2.25 GM 50 ML IV SCH ×4 (03:31→20:57)
[2018-06-25] MEDS: BUMETANIDE INJ 0.25MG/ML 4ML VIAL IV SCH ×3 (05:06→20:57)
[2018-06-25 05:11] LABS: BASOPHILS % 0.1 % (0.0-1.0); EOSINOPHILS % 0.3 % (0.0-6.0); HEMATOCRIT 30.4 % (38.2-49.6); HEMOGLOBIN 9.8 g/dL (14.0-18.0); LYMPHOCYTES # (AUTO) 0.5 (1.0-3.2); LYMPHOCYTES % 3.8 % (18.0-39.1); MEAN CORPUSCULAR HEMOGLOBIN 28.7 pg (28-32); MEAN CORPUSCULAR HGB CONC 32.2 g/dL (31-35); MEAN CORPUSCULAR VOLUME 88.9 fL (81-99); MONOCYTES # (AUTO) 0.7 (0.2-0.8); MONOCYTES % 5.2 % (4.4-11.3); NEUTROPHILS # (AUTO) 12.4 (2.1-6.9); NEUTROPHILS % 89.7 % (38.7-80.0); PLATELET COUNT 335 x10e3/uL (140-360); RED BLOOD COUNT 3.42 x10e6/uL (4.3-5.7); RED CELL DISTRIBUTION WIDTH 17.4 % (11.7-14.4)
[2018-06-25 05:33] LABS: CALCIUM 8.2 mg/dL (8.4-10.2); CREATININE, SERUM 2.67 mg/dL (0.72-1.25)
--- NOTE | 2018-06-25 05:50 | NUR ---
patient blood glucose level= 429 from lab, spot check was 398, Dr. Carranza was paged, patient has no insulin orders.
--- NOTE | 2018-06-25 07:11 | NUR ---
Patient endorsed to next shift for continuity of care. informed about sugar and to follow up with Dr. Herbert.
--- NOTE | 2018-06-25 08:14 | NUR ---
notified DR. Herbert of patient's critical blood sugar, 434 blood draw, received orders for low dose Humalog sliding scale.
[2018-06-25] MEDS ORDERED: DEXTROSE 50% SYRINGE 50 ML IV PRN (08:15)
[2018-06-25] MEDS: SODIUM CHLORIDE FLUSH 10 ML SYR INJ PRN ×2 (08:21→16:27)
[2018-06-25] MEDS: INSULIN LISPRO 100 UNIT/1 ML 3ML VIAL SQ SCH ×4 (08:25→20:59)
[2018-06-25] MEDS: TACROLIMUS 1 MG CAP PO SCH ×2 (09:00→17:21)
[2018-06-25] MEDS: HYDRALAZINE HCL 25 MG TAB PO SCH ×3 (09:00→20:58)
[2018-06-25] MEDS: SODIUM BICARBONATE 650 MG TAB PO SCH ×2 (09:00→17:21)
[2018-06-25] MEDS: BRIMONIDINE/TIMOLOL (OPTH SOLN 5 ML DRPETTE OP SCH (09:00)
[2018-06-25] MEDS ORDERED: INSULIN GLARGINE 100 UNITS/ML VIAL SQ ONE (09:30)
[2018-06-25] MEDS ORDERED: INSULIN GLARGINE 100 UNITS/ML VIAL SQ SCH (09:30)
[2018-06-25] MEDS: BALSAM PERU/CASTOR OIL 60 GM OINT...G. TP SCH (10:34)
[2018-06-25] MEDS ORDERED: INSULIN LISPRO 100 UNIT/1 ML 3ML VIAL SQ SCH (11:30)
--- NOTE | 2018-06-25 15:55 | Diagnostic Imaging Report ---
Procedure: Ultrasound-guided right diagnostic and therapeutic thoracentesis. pbx operator: Oni Chavez MD Pre-operative diagnosis: Moderate right pleural effusion Post-operative diagnosis: Trace right pleural effusion. Conscious Sedation: None Additional Medications: Lidocaine 1% for local anesthesia Contrast used: None Estimated blood loss: <5 cc Blood proximal administered: None Specimens: 1200 cc serous fluid. Implants: None Condition at completion: Stable Disposition: In floor DISCUSSION: Informed consent was obtained. The patient was placed in the lateral decubitus position. The right back was prepped and draped in the standard sterile fashion. A suitable percutaneous intercostal approach to the right pleural space was identified and the overlying skin was infiltrated with 1% lidocaine for local anesthesia. Moderate right pleural effusion was identified on ultrasound. Then under continuous sonographic guidance, a 5 Croatian Red Condoreh needle catheter was advanced into the pleural space. The catheter was advanced off the needle and connected to vacuum bottle with subsequent evacuation of 1200 cc of serous fluid. The catheter was removed and a sterile, occlusive dressing was applied. Postprocedure sonographic image showed residual trace right effusion. The patient tolerated the procedure well without immediate complication. Sample was sent to the lab. IMPRESSION: Ultrasound-guided diagnostic and therapeutic right thoracentesis with evacuation of 1200 cc of serous fluid. Signed by: Dr. Oni Chavez MD on 06/25/2018 3:52 PM
[2018-06-25 16:49] LABS: BODY FLUID APPEARANCE SL.CLOUDY; BODY FLUID COLOR YELLOW; BODY FLUID TYPE PLEURAL
[2018-06-25 17:03] LABS: RBC,BODY FLUID 42 cells/uL; WBC,BODY FLUID 158 cells/uL
--- NOTE | 2018-06-25 17:05 | NUR ---
Patient's refused for nurse to change dressing, stating "I will change dressing myself, Dr. Barrera taught me to the dressing changes to right foot. it is the hydrogel with the iodoform, the wound needs to air I do not want to apply ABD because the wound needs to air"
[2018-06-25 17:08] LABS: LYMPHOCYTES,BODY FLUID 2 %; MONO/MACROPHG,BODY FLUID 3 %; NEUTROPHILS,BODY FLUID 78 %
[2018-06-25 17:09] LABS: OTHER CELLS,BODY FLUID 17 %
[2018-06-25] MEDS: ZINC ACETATE TOP SCH (17:16)
[2018-06-25] MEDS: [UNRECOGNIZED DRUG - OTHER] TOP SCH (17:16)
[2018-06-25] MEDS: FLUCONAZOLE 100 MG TAB PO SCH (17:17)
[2018-06-25] MEDS: MAGNESIUM OXIDE 400 MG TAB PO SCH (17:17)
[2018-06-25] MEDS: PREDNISONE 5 MG TAB PO SCH (17:17)
[2018-06-25] MEDS: FOLIC ACID/CYANOCOB/PYRIDOXINE TAB PO SCH (17:17)
[2018-06-25] MEDS: LATANOPROST(OPTH) 2.5 ML BTL OP SCH (20:57)
[2018-06-25] MEDS: COLLAGENASE OINTMENT 30 GM TUBE TP SCH (20:58)
[2018-06-25] MEDS: INSULIN GLARGINE 100 UNITS/ML VIAL SQ SCH (20:59)
[2018-06-26] VITALS: BP 139/95
[2018-06-26] MEDS: MORPHINE SULFATE INJ 4 MG/ML INJ 1ML IV PRN ×5 (00:02→21:20)
[2018-06-26] MEDS: PIPERACILLIN/TAZO 2.25 GM 50 ML IV SCH ×4 (03:22→21:00)
[2018-06-26 04:00] VITALS: BP 142/67
[2018-06-26 07:40] VITALS: BP 145/92
[2018-06-26 08:07] VITALS: BP 145/92
[2018-06-26] MEDS: INSULIN LISPRO 100 UNIT/1 ML 3ML VIAL SQ SCH ×4 (08:07→21:00)
[2018-06-26] MEDS: BRIMONIDINE/TIMOLOL (OPTH SOLN 5 ML DRPETTE OP SCH (08:10)
[2018-06-26] MEDS: HYDRALAZINE HCL 25 MG TAB PO SCH ×3 (08:10→21:00)
[2018-06-26] MEDS: BUMETANIDE INJ 0.25MG/ML 4ML VIAL IV SCH ×2 (08:10→21:00)
[2018-06-26] MEDS: FOLIC ACID/CYANOCOB/PYRIDOXINE TAB PO SCH (08:18)
[2018-06-26] MEDS: MAGNESIUM OXIDE 400 MG TAB PO SCH (08:18)
[2018-06-26] MEDS: FLUCONAZOLE 100 MG TAB PO SCH (08:18)
[2018-06-26] MEDS: TACROLIMUS 1 MG CAP PO SCH ×2 (08:18→17:03)
[2018-06-26] MEDS: SODIUM BICARBONATE 650 MG TAB PO SCH ×2 (08:18→17:04)
[2018-06-26] MEDS: PREDNISONE 5 MG TAB PO SCH (08:18)
[2018-06-26] MEDS: ZINC ACETATE TOP SCH (08:19)
[2018-06-26] MEDS: BALSAM PERU/CASTOR OIL 60 GM OINT...G. TP SCH (08:19)
[2018-06-26] MEDS: CALCITRIOL 0.25 MCG CAP PO SCH (08:19)
[2018-06-26] MEDS: [UNRECOGNIZED DRUG - OTHER] TOP SCH (08:19)
--- NOTE | 2018-06-26 11:29 | NUR ---
REGISTRY RN and heat treat technician attempted to see patient twice today. In the earlier am, he was very sleepy, and no one was present in his room. Returned at 11:20 am. was present, however, patient's HR was 137. Akua Milner PTA/Supervising PTGenaro Addendum: 06/26/18 at 1131 by Akua Milner PTA Amended: Links added.
--- NOTE | 2018-06-26 13:56 | NUR ---
DC PLANNING: PT DISCUSSED IN MDR TODAY. LTAC WAS DISCUSSED. BEDSIDE NURSE, JUMA CALLED DR. CHA FOR AN ORDER, BUT DR. CHA DID NOT GIVE THE ORDER. CM WILL CONT TO FOLLOW. GMLOS 4.9, INCREASED TO 6.
[2018-06-26 15:57] VITALS: BP 119/79
[2018-06-26 20:00] VITALS: BP 134/91
[2018-06-26] MEDS: INSULIN GLARGINE 100 UNITS/ML VIAL SQ SCH (21:00)
[2018-06-26] MEDS: LATANOPROST(OPTH) 2.5 ML BTL OP SCH (21:00)
[2018-06-26] MEDS: COLLAGENASE OINTMENT 30 GM TUBE TP SCH (21:00)
[2018-06-27] VITALS (8 sets, daily range): BP systolic 108–150; BP diastolic 74–93
[2018-06-27] MEDS: MORPHINE SULFATE INJ 4 MG/ML INJ 1ML IV PRN ×4 (02:00→22:15)
[2018-06-27] MEDS: PIPERACILLIN/TAZO 2.25 GM 50 ML IV SCH ×4 (03:05→21:04)
[2018-06-27 06:06] LABS: ALBUMIN 1.5 g/dL (3.5-5.0); ALBUMIN/GLOBULIN RATIO 0.5 (0.8-2.0); ANION GAP 13.8 mmol/L (8-16); CALCIUM 8.1 mg/dL (8.4-10.2); CREATININE, SERUM 2.64 mg/dL (0.72-1.25); POTASSIUM 3.8 mmol/L (3.5-5.1)
[2018-06-27] MEDS: INSULIN LISPRO 100 UNIT/1 ML 3ML VIAL SQ SCH ×4 (07:46→21:17)
[2018-06-27] MEDS: BUMETANIDE INJ 0.25MG/ML 4ML VIAL IV SCH ×2 (09:19→21:04)
[2018-06-27] MEDS: TACROLIMUS 1 MG CAP PO SCH ×2 (09:20→16:10)
[2018-06-27] MEDS: LIDOCAINE 5% PATCH TP SCH (09:20)
[2018-06-27] MEDS: FLUCONAZOLE 100 MG TAB PO SCH (09:20)
[2018-06-27] MEDS: ZINC ACETATE TOP SCH (09:20)
[2018-06-27] MEDS: FOLIC ACID/CYANOCOB/PYRIDOXINE TAB PO SCH (09:20)
[2018-06-27] MEDS: BALSAM PERU/CASTOR OIL 60 GM OINT...G. TP SCH (09:20)
[2018-06-27] MEDS: BRIMONIDINE/TIMOLOL (OPTH SOLN 5 ML DRPETTE OP SCH (09:20)
[2018-06-27] MEDS: [UNRECOGNIZED DRUG - OTHER] TOP SCH (09:20)
[2018-06-27] MEDS: MAGNESIUM OXIDE 400 MG TAB PO SCH (09:20)
[2018-06-27] MEDS: SODIUM BICARBONATE 650 MG TAB PO SCH ×2 (09:20→16:10)
[2018-06-27] MEDS: PREDNISONE 5 MG TAB PO SCH (09:20)
[2018-06-27] MEDS: HYDRALAZINE HCL 25 MG TAB PO SCH ×3 (09:20→21:05)
[2018-06-27] MEDS ORDERED: FUROSEMIDE INJ 10 MG/ML 4 ML VIAL IV NR ×2 (11:15→16:15)
--- NOTE | 2018-06-27 19:00 | NUR ---
Received patient from day nurse, patient is alert and oriented x 3, introduced self to patient and patient instructed to call nurses for any assistance needed, patient verbalized understanding, safety and fall precautions maintained as per hospital protocol: bed in lowest position and locked, needed items beside bed and call cobos placed close to patient, patient instructed to use it call nurses for any assistance needed, patient verbalized understanding. patient is currently stable will continue to monitor. colostomy is in place, not leaking skin around it is intact, 1999: patient is stable, patient assisted to turn. 2200: patient is stable. 06/28/18: 0000: patient is stable, vitals stable. 0200: patient is stable.
[2018-06-27] MEDS: OXYCODONE/ACETAMINOPHEN 5-325 1 EACH TABLET PO PRN (21:00)
[2018-06-27] MEDS: LATANOPROST(OPTH) 2.5 ML BTL OP SCH (21:04)
[2018-06-27] MEDS: COLLAGENASE OINTMENT 30 GM TUBE TP SCH (21:05)
[2018-06-27] MEDS: METOPROLOL TARTRATE 50 MG TAB PO SCH (21:06)
[2018-06-27] MEDS: INSULIN GLARGINE 100 UNITS/ML VIAL SQ SCH (21:17)
[2018-06-28] VITALS (8 sets, daily range): BP systolic 109–144; BP diastolic 68–94
[2018-06-28] MEDS: DIPHENHYDRAMINE HCL 25 MG CAP PO PRN
[2018-06-28] MEDS: MORPHINE SULFATE INJ 4 MG/ML INJ 1ML IV PRN ×5 (03:00→22:45)
[2018-06-28] MEDS: PIPERACILLIN/TAZO 2.25 GM 50 ML IV SCH ×4 (03:31→21:53)
[2018-06-28 05:24] LABS: BASOPHILS % 0.2 % (0.0-1.0); EOSINOPHILS # (AUTO) 0.3 (0.0-0.4); EOSINOPHILS % 3.3 % (0.0-6.0); HEMATOCRIT 30.8 % (38.2-49.6); HEMOGLOBIN 9.9 g/dL (14.0-18.0); LYMPHOCYTES # (AUTO) 0.8 (1.0-3.2); LYMPHOCYTES % 7.8 % (18.0-39.1); MEAN CORPUSCULAR HEMOGLOBIN 28.6 pg (28-32); MEAN CORPUSCULAR HGB CONC 32.1 g/dL (31-35); MONOCYTES # (AUTO) 0.8 (0.2-0.8); MONOCYTES % 7.8 % (4.4-11.3); NEUTROPHILS # (AUTO) 7.9 (2.1-6.9); NEUTROPHILS % 79.7 % (38.7-80.0); PLATELET COUNT 262 x10e3/uL (140-360); RED BLOOD COUNT 3.46 x10e6/uL (4.3-5.7)
[2018-06-28 05:52] LABS: INR 1.5; PROTHROMBIN TIME 18.7 seconds (11.9-14.5)
[2018-06-28 05:53] LABS: PARTIAL THROMBOPLASTIN TIME 38.8 seconds (23.8-35.5)
[2018-06-28 05:59] LABS: ANION GAP 15.8 mmol/L (8-16); CALCIUM 8.1 mg/dL (8.4-10.2); CREATININE, SERUM 2.61 mg/dL (0.72-1.25); POTASSIUM 3.8 mmol/L (3.5-5.1)
--- NOTE | 2018-06-28 07:07 | NUR ---
Patient endorsed to next shift for continuity of care.
[2018-06-28] MEDS: INSULIN LISPRO 100 UNIT/1 ML 3ML VIAL SQ SCH ×4 (07:22→22:22)
[2018-06-28] MEDS: FERROUS SULFATE 325 MG TAB PO SCH ×2 (08:57→16:54)
[2018-06-28] MEDS: FLUCONAZOLE 100 MG TAB PO SCH (08:58)
[2018-06-28] MEDS: BRIMONIDINE/TIMOLOL (OPTH SOLN 5 ML DRPETTE OP SCH (08:58)
[2018-06-28] MEDS: METOPROLOL TARTRATE 50 MG TAB PO SCH ×2 (08:58→16:55)
[2018-06-28] MEDS: BUMETANIDE INJ 0.25MG/ML 4ML VIAL IV SCH ×2 (08:58→21:53)
[2018-06-28] MEDS: HYDRALAZINE HCL 25 MG TAB PO SCH ×3 (08:58→21:52)
[2018-06-28] MEDS: FOLIC ACID/CYANOCOB/PYRIDOXINE TAB PO SCH (08:59)
[2018-06-28] MEDS: PREDNISONE 5 MG TAB PO SCH (08:59)
[2018-06-28] MEDS: SODIUM BICARBONATE 650 MG TAB PO SCH ×2 (08:59→16:55)
[2018-06-28] MEDS: LIDOCAINE 5% PATCH TP SCH (08:59)
[2018-06-28] MEDS: MAGNESIUM OXIDE 400 MG TAB PO SCH (08:59)
[2018-06-28] MEDS: [UNRECOGNIZED DRUG - OTHER] TOP SCH (08:59)
[2018-06-28] MEDS: ZINC ACETATE TOP SCH (08:59)
[2018-06-28] MEDS: TACROLIMUS 1 MG CAP PO SCH ×2 (08:59→16:55)
[2018-06-28] MEDS: BALSAM PERU/CASTOR OIL 60 GM OINT...G. TP SCH (08:59)
[2018-06-28] MEDS: OXYCODONE/ACETAMINOPHEN 5-325 1 EACH TABLET PO PRN ×2 (10:05→18:07)
[2018-06-28] MEDS: WARFARIN SOD 2 MG TAB PO SCH (16:54)
--- NOTE | 2018-06-28 19:00 | NUR ---
Received patient from day nurse, patient is alert and oriented x 3, introduced self to patient and patient instructed to call nurses for any assistance needed, patient verbalized understanding, safety and fall precautions maintained as per hospital protocol: bed in lowest position and locked, needed items beside bed and call cobos placed close to patient, patient instructed to use it call nurses for any assistance needed, patient verbalized understanding. patient is currently stable will continue to monitor. 2000: patient is self turn encouraged to turn. 2200: patient is stable. 06/28/18: 0000: patient is stable, vitals stable. 0200: patient is stable.
[2018-06-28] MEDS: LATANOPROST(OPTH) 2.5 ML BTL OP SCH (21:53)
[2018-06-28] MEDS: COLLAGENASE OINTMENT 30 GM TUBE TP SCH (21:53)
[2018-06-28] MEDS: INSULIN GLARGINE 100 UNITS/ML VIAL SQ SCH (22:22)
[2018-06-29] VITALS (9 sets, daily range): BP systolic 103–159; BP diastolic 64–90
[2018-06-29] MEDS: MORPHINE SULFATE INJ 4 MG/ML INJ 1ML IV PRN ×4 (03:06→19:44)
[2018-06-29] MEDS: PIPERACILLIN/TAZO 2.25 GM 50 ML IV SCH ×4 (03:08→20:38)
[2018-06-29 05:11] LABS: BASOPHILS % 0.2 % (0.0-1.0); EOSINOPHILS # (AUTO) 0.3 (0.0-0.4); HEMATOCRIT 32.9 % (38.2-49.6); HEMOGLOBIN 10.4 g/dL (14.0-18.0); LYMPHOCYTES # (AUTO) 1.1 (1.0-3.2); LYMPHOCYTES % 7.8 % (18.0-39.1); MEAN CORPUSCULAR HEMOGLOBIN 28.4 pg (28-32); MEAN CORPUSCULAR HGB CONC 31.6 g/dL (31-35); MEAN CORPUSCULAR VOLUME 89.9 fL (81-99); MONOCYTES # (AUTO) 1.1 (0.2-0.8); MONOCYTES % 7.7 % (4.4-11.3); NEUTROPHILS # (AUTO) 11.1 (2.1-6.9); NEUTROPHILS % 80.8 % (38.7-80.0); PLATELET COUNT 280 x10e3/uL (140-360); RED BLOOD COUNT 3.66 x10e6/uL (4.3-5.7)
[2018-06-29 05:18] LABS: INR 1.61; PARTIAL THROMBOPLASTIN TIME 43.4 seconds (23.8-35.5); PROTHROMBIN TIME 19.8 seconds (11.9-14.5)
--- NOTE | 2018-06-29 07:01 | NUR ---
patient endorsed to day nurse for continuity of care.
[2018-06-29] MEDS: INSULIN LISPRO 100 UNIT/1 ML 3ML VIAL SQ SCH ×4 (07:30→20:15)
[2018-06-29 07:44] LABS: LYMPHOCYTES % (MANUAL) 8 % (19-48); MONOCYTES % (MANUAL) 7 % (3.4-9.0); NEUTROPHILS % (MANUAL) 85 % (40-74)
[2018-06-29 07:46] LABS: PLATELET ESTIMATE ADEQUATE; PLATELET MORPHOLOGY COMMENT NORMAL; RBC MORPHOLOGY COMMENT NORMAL
[2018-06-29 07:47] LABS: ANISOCYTOSIS SLIGHT
[2018-06-29] MEDS: SODIUM CHLORIDE FLUSH 10 ML SYR INJ PRN ×2 (09:09→13:55)
[2018-06-29] MEDS: BRIMONIDINE/TIMOLOL (OPTH SOLN 5 ML DRPETTE OP SCH (09:36)
[2018-06-29] MEDS: BALSAM PERU/CASTOR OIL 60 GM OINT...G. TP SCH (09:51)
[2018-06-29] MEDS: LIDOCAINE 5% PATCH TP SCH (09:51)
[2018-06-29] MEDS: FERROUS SULFATE 325 MG TAB PO SCH ×2 (09:51→16:41)
[2018-06-29] MEDS: BUMETANIDE INJ 0.25MG/ML 4ML VIAL IV SCH ×2 (09:51→16:41)
[2018-06-29] MEDS: HYDRALAZINE HCL 25 MG TAB PO SCH ×3 (09:53→20:38)
[2018-06-29] MEDS: FLUCONAZOLE 100 MG TAB PO SCH (09:53)
[2018-06-29] MEDS: [UNRECOGNIZED DRUG - OTHER] TOP SCH (09:54)
[2018-06-29] MEDS: SODIUM BICARBONATE 650 MG TAB PO SCH ×2 (09:54→16:41)
[2018-06-29] MEDS: FOLIC ACID/CYANOCOB/PYRIDOXINE TAB PO SCH (09:54)
[2018-06-29] MEDS: METOPROLOL TARTRATE 50 MG TAB PO SCH ×2 (09:54→16:45)
[2018-06-29] MEDS: TACROLIMUS 1 MG CAP PO SCH ×2 (09:54→16:42)
[2018-06-29] MEDS: PREDNISONE 5 MG TAB PO SCH (09:54)
[2018-06-29] MEDS: ZINC ACETATE TOP SCH (09:54)
[2018-06-29] MEDS: CALCITRIOL 0.25 MCG CAP PO SCH (09:55)
[2018-06-29] MEDS: MAGNESIUM OXIDE 400 MG TAB PO SCH (09:55)
--- NOTE | 2018-06-29 11:22 | NUR ---
Applied LÓPEZ stocking to left lower extremity, patient refused right lower extremity LÓPEZ stocking, made Dr. Kim aware.
[2018-06-29] MEDS ORDERED: METOLAZONE 5 MG TAB PO NR (11:45)
[2018-06-29] MEDS ORDERED: BUMETANIDE INJ 0.25MG/ML 4ML VIAL IV SCH (14:00)
--- NOTE | 2018-06-29 14:20 | NUR ---
CM CALLED DR CHA TO DISCUSS DC PLANS DR PRO STATES PT DOES NOT NEED DIALYSIS WANTS TO DIURESE PT 36 MORE HRS THEN PT WILL BE READY FOR SNF CM NOTIFIED OF DR PRO'S DC PLAN ORDERS FOR SNF EVAL
[2018-06-29] MEDS: WARFARIN SOD 2 MG TAB PO SCH (16:41)
--- NOTE | 2018-06-29 17:37 | NUR ---
Nutrition Intervention Note RD Recommendation(s) for Physician: -Continue ADA 1800 as ordered -Rec Glucerna TID to promote protein-calorie intake -Rec MVi w/ minerals, vitamin C 500 mg once a day, and zinc sulfate 220 mg once a day x 10 days to promote wound healing Plan of Care: RD following, monitoring for tolerance and adequacy, ONS rec Nutrition reason for involvement: Follow up RD Assessment: 06/29: Pt seen for follow up. Pt discussed during am rounds, ongoing discussion of discharge to SNF and pt does not require HD per Nephrology. Pt's at bedside reports pt's intake is based on receiving foods he likes, obtained pt preferences and noted in [facility]. Pt with 50-100% meal intake per nursing. Pt with no c/o GI distress, no changes in colostomy output per . No questions or concerns at time of visit. Current rec's remain appropriate. Will continue to monitor. 06/23 Chart reviewed. 63yo M, who was admitted from SNF to ER for severe joint pain ongoing for 1 week. Pt was well known to me from his previous admissions. Pt was d/c from [facility] to a [place] [facility] on 06/17/2018. Pt continued to have poor appetite. Pt complained of the foods at [place] [facility] taste terrible. Pt would like to have Glucerna TID while in the hospital. No GI complains noted. Pt stated it takes a while for me to chew the foods but denied any swallowing difficulty. Pt refused texture modification. on bedside assists with feeding. Will continue to monitor and follow. Please consult as needed. 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 Sacral - Stage II Pressure Ulcer with DTI - Present On Admission 2. Right Foot Plantar - DFU grade 3 - Very Slow Healing Ulcer. Labs: 06/29: BUN 84, Cr 2.61, Ca 8.1 Meds: lispro, mag-ox, calcitriol, Na Bicarb, nephrovite, prograf, prednisone, feosol, lantus, coumadin, bumetamide, zofran Ht: 66in Wt: 207.06lb BMI: 33.4kg/m2 IBW: 142lb Malnutrition Evaluation (06/23) The patient does not meet criteria for a specified degree of malnutrition at this time. Will re-evaluate at follow-up as appropriate. Energy intake: <75% of estimated energy requirements for >7 days Weight loss: ~7.8% weight loss in a year Fat loss: N/A Muscle loss: N/A Supporting Evidence: Fluid accumulation: On lasix Functional Status: measurably reduced Nutrition Prescription (Diet Order): 1800 ADA diet Estimated Nutritional Needs: Calories: 0 - 2460kcal (25-30kcal/kg/d) Weight used: UBW of 181lbs Protein : 66 - 98g (0.8-1.2g/kg/d) Weight used: UBW of 181lbs Diet Adequacy: Not meeting calorie needs, Not meeting protein needs Diet Education Needs Assessment: Diet education indicated, but patient not appropriate for education at this time. Nutrition Care Level: mod Nutrition Diagnosis: Inadequate oral intake related to acute illness as evidenced by pt reported poor appetite. Goal: Patient will meet 75-100% of estimated needs by follow up Progress: Progressing Interventions: Carb-modified diet, Commercial beverage Monitoring/Evaluation: Total energy intake, Total protein intake, Modified diet, Liquid supplement, Weight change Signed: Janet Otero RD, [facility], [facility]
[2018-06-29] MEDS: COLLAGENASE OINTMENT 30 GM TUBE TP SCH (20:15)
[2018-06-29] MEDS: LATANOPROST(OPTH) 2.5 ML BTL OP SCH (20:38)
[2018-06-29] MEDS: INSULIN GLARGINE 100 UNITS/ML VIAL SQ SCH (20:39)
[2018-06-29] MEDS: DIPHENHYDRAMINE HCL 25 MG CAP PO PRN (23:22)
[2018-06-29] MEDS: OXYCODONE/ACETAMINOPHEN 5-325 1 EACH TABLET PO PRN (23:22)
[2018-06-30] VITALS (8 sets, daily range): BP systolic 117–144; BP diastolic 61–106
[2018-06-30] MEDS: BUMETANIDE INJ 0.25MG/ML 4ML VIAL IV SCH ×3 (01:29→16:48)
[2018-06-30] MEDS: PIPERACILLIN/TAZO 2.25 GM 50 ML IV SCH ×4 (03:00→21:02)
[2018-06-30] MEDS: OXYCODONE/ACETAMINOPHEN 5-325 1 EACH TABLET PO PRN (03:04)
[2018-06-30 05:47] LABS: BASOPHILS % 0.2 % (0.0-1.0); EOSINOPHILS # (AUTO) 0.1 (0.0-0.4); EOSINOPHILS % 0.4 % (0.0-6.0); HEMATOCRIT 32.5 % (38.2-49.6); HEMOGLOBIN 10.4 g/dL (14.0-18.0); LYMPHOCYTES # (AUTO) 0.9 (1.0-3.2); LYMPHOCYTES % 5.4 % (18.0-39.1); MEAN CORPUSCULAR HEMOGLOBIN 28.3 pg (28-32); MEAN CORPUSCULAR VOLUME 88.6 fL (81-99); MONOCYTES # (AUTO) 1.2 (0.2-0.8); MONOCYTES % 7.3 % (4.4-11.3); NEUTROPHILS # (AUTO) 14.3 (2.1-6.9); NEUTROPHILS % 85.6 % (38.7-80.0); PLATELET COUNT 307 x10e3/uL (140-360); RED BLOOD COUNT 3.67 x10e6/uL (4.3-5.7); RED CELL DISTRIBUTION WIDTH 18.5 % (11.7-14.4)
[2018-06-30 05:55] LABS: INR 2.1; PROTHROMBIN TIME 24.2 seconds (11.9-14.5)
[2018-06-30 06:21] LABS: ANION GAP 15.5 mmol/L (8-16); CALCIUM 8.3 mg/dL (8.4-10.2); CREATININE, SERUM 2.69 mg/dL (0.72-1.25); POTASSIUM 3.5 mmol/L (3.5-5.1)
--- NOTE | 2018-06-30 07:16 | NUR ---
bedside reports given to upcoming shift nurse, questions answered.
[2018-06-30] MEDS: INSULIN LISPRO 100 UNIT/1 ML 3ML VIAL SQ SCH ×4 (07:30→21:02)
[2018-06-30] MEDS: ZINC ACETATE TOP SCH (09:00)
[2018-06-30] MEDS: BALSAM PERU/CASTOR OIL 60 GM OINT...G. TP SCH (09:00)
[2018-06-30] MEDS: [UNRECOGNIZED DRUG - OTHER] TOP SCH (09:00)
[2018-06-30] MEDS: FOLIC ACID/CYANOCOB/PYRIDOXINE TAB PO SCH (09:17)
[2018-06-30] MEDS: HYDRALAZINE HCL 25 MG TAB PO SCH ×3 (09:17→21:02)
[2018-06-30] MEDS: FERROUS SULFATE 325 MG TAB PO SCH ×2 (09:17→16:48)
[2018-06-30] MEDS: LIDOCAINE 5% PATCH TP SCH (09:17)
[2018-06-30] MEDS: FLUCONAZOLE 100 MG TAB PO SCH (09:17)
[2018-06-30] MEDS: BRIMONIDINE/TIMOLOL (OPTH SOLN 5 ML DRPETTE OP SCH (09:17)
[2018-06-30] MEDS: PREDNISONE 5 MG TAB PO SCH (09:17)
[2018-06-30] MEDS: MAGNESIUM OXIDE 400 MG TAB PO SCH (09:17)
[2018-06-30] MEDS: TACROLIMUS 1 MG CAP PO SCH ×2 (09:17→16:49)
[2018-06-30] MEDS: SODIUM BICARBONATE 650 MG TAB PO SCH ×2 (09:17→16:49)
[2018-06-30] MEDS: METOPROLOL TARTRATE 50 MG TAB PO SCH ×2 (09:18→16:49)
--- NOTE | 2018-06-30 09:46 | NUR ---
Patient alert and responsive, VSS and some tachy with movement, bed bath provided and ooB to w/c with sliding board, unable to maintain standing position due to weakness to LE, continues on Bumex IV due to generalized edema, tolerated all meds, wound dressing change completed to left toes and assisted, continues on telemetry monitoring, baseline Afib, PT in to assist with getting patient OOB and call light within reach, will monitor at this time
--- NOTE | 2018-06-30 11:07 | NUR ---
Patient alert and has been sitting on chair for over an hour, went for CXR and assisted back to bed with slide board transfer and 3 staff assisting, settled in bed at this time and will monitor.
--- NOTE | 2018-06-30 11:58 | Diagnostic Imaging Report ---
EXAM: CHEST 2 VIEWS, PA and lateral DATE: 06/30/2018 Time stamp on exam: 10:27 AM INDICATION: CKD; history of CHF and pneumonia with shortness of breath COMPARISON: 06/23/2018 FINDINGS: LINES/TUBES: None LUNGS: Improving patchy airspace opacities. Mild pulmonary vascular congestion persists. PLEURA: Small bilateral pleural effusions have improved compared to the prior study. HEART AND MEDIASTINUM: Normal size and contour. BONES AND SOFT TISSUES: No acute findings. IMPRESSION: 1. Improvement in the pulmonary opacities and effusions. 2. Mild pulmonary vascular congestion persists. Signed by: Dr. Phil Houser DO on 06/30/2018 11:55 AM
--- NOTE | 2018-06-30 15:56 | NUR ---
SPOKE WITH PT AND DO NOT WANT TO RETURN TO SNF WANT TO GO HOME WITH [facility], SIGNED CHOICE. ASKED DR SIGALA HE WANTS HOSPITAL BED ORDERED FOR PT.
[2018-06-30] MEDS: WARFARIN SOD 1 MG TAB PO SCH (16:48)
[2018-06-30] MEDS ORDERED: WARFARIN SOD 2 MG TAB PO SCH (17:00)
[2018-06-30 18:25] LABS: BASOPHILS % 0.2 % (0.0-1.0); EOSINOPHILS % 0.1 % (0.0-6.0); HEMOGLOBIN 10.4 g/dL (14.0-18.0); LYMPHOCYTES # (AUTO) 0.7 (1.0-3.2); LYMPHOCYTES % 3.4 % (18.0-39.1); MEAN CORPUSCULAR HEMOGLOBIN 28.4 pg (28-32); MEAN CORPUSCULAR HGB CONC 31.5 g/dL (31-35); MEAN CORPUSCULAR VOLUME 90.2 fL (81-99); MONOCYTES # (AUTO) 1.1 (0.2-0.8); MONOCYTES % 5.7 % (4.4-11.3); NEUTROPHILS # (AUTO) 17.5 (2.1-6.9); PLATELET COUNT 314 x10e3/uL (140-360); RED BLOOD COUNT 3.66 x10e6/uL (4.3-5.7); RED CELL DISTRIBUTION WIDTH 18.5 % (11.7-14.4)
--- NOTE | 2018-06-30 18:33 | NUR ---
Rounds by nephrology and to continue bumex IV diureses, orders per Dr. chance for hospital bed at home and home health services. Patient in bed, repositioned per protocol, emptied colostomy bag about 60cc stool output. Call light within reach, will monitor.
[2018-06-30 18:44] LABS: ANION GAP 13.5 mmol/L (8-16); CALCIUM 8.3 mg/dL (8.4-10.2); CREATININE, SERUM 2.79 mg/dL (0.72-1.25); POTASSIUM 3.5 mmol/L (3.5-5.1)
--- NOTE | 2018-06-30 19:29 | NUR ---
called and left a message to dr Herbert, if maybe patient can be downgraded to med surg unit. awaiting for call back.
[2018-06-30] MEDS: LATANOPROST(OPTH) 2.5 ML BTL OP SCH (21:02)
[2018-06-30] MEDS: COLLAGENASE OINTMENT 30 GM TUBE TP SCH (21:03)
[2018-06-30] MEDS: INSULIN GLARGINE 100 UNITS/ML VIAL SQ SCH (21:03)
--- NOTE | 2018-06-30 23:58 | NUR ---
patient made nurse aware that condom catheter was off. put a new condom catheter on, attempted to clean patient solicited additional nursing staff to help change patient. at this time, household chores instructed staff to move patient stat to facilitate cleaning crews to clean room stat. reported to new nurse to change patient upon arrival to 297.
[2018-07-01] VITALS (9 sets, daily range): BP systolic 118–165; BP diastolic 62–74
--- NOTE | 2018-07-01 00:41 | NUR ---
PATIENT RECEIVED FROM [facility] PER BED AT 0011; HE'S ALERT AND ORIENTED X3, NO ACUTE DISTRESS OBSERVED. PATIENT INCONTINENT OF URINE, HE'S KEPT CLEAN AND DRY, CONDOM CATHETER APPLIED. 4+ PITTING EDEMA TO THE LEGS, LÓPEZ HOSE TO BOTH LEGS. DRESSING INTACT TO THE RIGHT FOOT WITH DRAINAGE NOTED UNDERNEATH THE RIGHT FOOT WOUND. MULTIPLE BRUISES TO THE ARMS, ALLEVYN DRESSING INTACT TO THE SACRUM. PATIENT C/O PAIN TO THE LEGS WITH PAIN SCORE #10, HE HAS NO PAIN MEDICATION ON ORDER. REPORT RECEIVED THAT DR PRO DISCONTINUE THE PATIENT'S PAIN MEDICATION.
--- NOTE | 2018-07-01 01:33 | NUR ---
PATIENT C/O SEVERE BURNING SENSATION WHILE FLUSHING THE IV, IV REMOVE WITH TIP INTACT. IV #22 GAUGE INSERTED TO THE RIGHT FOREARM, PATIENT TOLERATED PROCEDURE WELL, BUMETANIDE ADMINISTERED SLOWLY ORDERED.
[2018-07-01] MEDS: BUMETANIDE INJ 0.25MG/ML 4ML VIAL IV SCH ×3 (01:35→16:41)
--- NOTE | 2018-07-01 04:05 | NUR ---
ASSISTED WITH ADLS, NO RESPIRATORY DISTRESS OBSERVED AND PATIENT C/O PAIN TO THE LEGS. NO PAIN MEDICATION ON ORDER FOR THE PATIENT, BED ALARM ON, CALL LIGHT WITHIN EASY REACH.
[2018-07-01] MEDS ORDERED: SODIUM CHLORIDE 0.9% 50ML 50 ML ONE (04:31)
[2018-07-01] MEDS: PIPERACILLIN/TAZO 2.25 GM 50 ML IV SCH ×4 (04:33→22:37)
--- NOTE | 2018-07-01 06:58 | NUR ---
RECEIVED PATIENT RESTING IN BED, NO ACUTE DISTRESS NOTED. AT BEDSIDE. CALL LIGHT WITHIN REACH. BED IN THE LOWEST POSITION.
[2018-07-01] MEDS: INSULIN LISPRO 100 UNIT/1 ML 3ML VIAL SQ SCH ×4 (07:30→22:45)
[2018-07-01] MEDS: BRIMONIDINE/TIMOLOL (OPTH SOLN 5 ML DRPETTE OP SCH (08:55)
[2018-07-01] MEDS: FLUCONAZOLE 100 MG TAB PO SCH (08:55)
[2018-07-01] MEDS: FERROUS SULFATE 325 MG TAB PO SCH ×2 (08:55→16:42)
[2018-07-01] MEDS: HYDRALAZINE HCL 25 MG TAB PO SCH ×3 (08:55→22:37)
[2018-07-01] MEDS: MAGNESIUM OXIDE 400 MG TAB PO SCH (08:55)
[2018-07-01] MEDS: METOPROLOL TARTRATE 50 MG TAB PO SCH ×2 (08:55→16:42)
[2018-07-01] MEDS: FOLIC ACID/CYANOCOB/PYRIDOXINE TAB PO SCH (08:56)
[2018-07-01] MEDS: ZINC ACETATE TOP SCH (08:56)
[2018-07-01] MEDS: SODIUM BICARBONATE 650 MG TAB PO SCH ×2 (08:56→16:42)
[2018-07-01] MEDS: TACROLIMUS 1 MG CAP PO SCH ×2 (08:56→16:42)
[2018-07-01] MEDS: [UNRECOGNIZED DRUG - OTHER] TOP SCH (08:56)
[2018-07-01] MEDS: LIDOCAINE 5% PATCH TP SCH (08:56)
[2018-07-01] MEDS: PREDNISONE 5 MG TAB PO SCH (08:59)
[2018-07-01] MEDS: CALCITRIOL 0.25 MCG CAP PO SCH (09:30)
--- NOTE | 2018-07-01 10:24 | NUR ---
SPOKE WITH RIANNA AT [facility] FAXED ORDERS, PT NOTE, FACE SHEET TO [phone]
[2018-07-01] MEDS: BALSAM PERU/CASTOR OIL 60 GM OINT...G. TP SCH (11:26)
--- NOTE | 2018-07-01 16:22 | NUR ---
HOME HEALTH ORDER FOR HOME SN AND PT EVAL AND TREAT. PT PROVIDED CHOICE BY [facility]. REQUESTED [facility]. REFERRAL FAXED TO [facility] @ OFF: [phone] / FAX: [phone]
[2018-07-01] MEDS: WARFARIN SOD 1 MG TAB PO SCH (16:42)
--- NOTE | 2018-07-01 19:20 | NUR ---
REPORT GIVEN TO ONCOMING NURSE, PATIENT IS RESTING IN BED. NO ACUTE DISTRESS NOTED. AT BEDSIDE. CALL LIGHT WITHIN REACH. BED IN THE LOWEST POSITION.
--- NOTE | 2018-07-01 19:57 | NUR ---
PT IS RESTING IN BED WITH AT BEDSIDE. NO RESPIRATORY DISTRESS NOTED. BED IN THE LOWEST POSITION, LOCKED, AND CALL LIGHT WITHIN REACH. WILL CONTINUE TO MONITOR.
[2018-07-01] MEDS: COLLAGENASE OINTMENT 30 GM TUBE TP SCH (22:37)
[2018-07-01] MEDS: LATANOPROST(OPTH) 2.5 ML BTL OP SCH (22:37)
[2018-07-01] MEDS: INSULIN GLARGINE 100 UNITS/ML VIAL SQ SCH (22:46)
--- NOTE | 2018-07-01 22:47 | NUR ---
PT DOES NOT WANT THE SCD ON. EDUCATED PT ON KEEPING IT ON SINCE HE IS NOT AMBULATORY. PT STILL REFUSE TO KEEP IT ON. WILL CONTINUE TO MONITOR.
[2018-07-02] VITALS (9 sets, daily range): BP systolic 141–187; BP diastolic 56–84
[2018-07-02] MEDS: BUMETANIDE INJ 0.25MG/ML 4ML VIAL IV SCH ×3 (01:35→17:22)
[2018-07-02] MEDS: PIPERACILLIN/TAZO 2.25 GM 50 ML IV SCH ×4 (02:39→21:04)
[2018-07-02 06:02] LABS: BASOPHILS % 0.1 % (0.0-1.0); EOSINOPHILS # (AUTO) 0.1 (0.0-0.4); EOSINOPHILS % 0.7 % (0.0-6.0); HEMATOCRIT 31.3 % (38.2-49.6); HEMOGLOBIN 9.8 g/dL (14.0-18.0); LYMPHOCYTES # (AUTO) 1.1 (1.0-3.2); LYMPHOCYTES % 7.9 % (18.0-39.1); MEAN CORPUSCULAR HGB CONC 31.3 g/dL (31-35); MEAN CORPUSCULAR VOLUME 89.4 fL (81-99); MONOCYTES # (AUTO) 0.9 (0.2-0.8); MONOCYTES % 6.7 % (4.4-11.3); NEUTROPHILS # (AUTO) 11.2 (2.1-6.9); NEUTROPHILS % 83.3 % (38.7-80.0); PLATELET COUNT 315 x10e3/uL (140-360); RED CELL DISTRIBUTION WIDTH 18.4 % (11.7-14.4)
[2018-07-02 06:14] LABS: INR 3.15; PROTHROMBIN TIME 33.1 seconds (11.9-14.5)
[2018-07-02 06:20] LABS: ANION GAP 16.6 mmol/L (8-16); CALCIUM 8.2 mg/dL (8.4-10.2); CREATININE, SERUM 2.81 mg/dL (0.72-1.25); POTASSIUM 3.6 mmol/L (3.5-5.1)
--- NOTE | 2018-07-02 06:50 | NUR ---
RECEIVED PATIENT RESTING IN BED, RESPIRATIONS EVEN AND UNLABORED, NO ACUTE DISTRESS NOTED. AT BEDSIDE. CALL LIGHT WITHIN REACH. BED IN THE LOWEST POSITION.
[2018-07-02] MEDS: INSULIN LISPRO 100 UNIT/1 ML 3ML VIAL SQ SCH ×4 (07:30→21:06)
[2018-07-02] MEDS: BALSAM PERU/CASTOR OIL 60 GM OINT...G. TP SCH (08:00)
[2018-07-02] MEDS: SODIUM BICARBONATE 650 MG TAB PO SCH ×2 (08:50→17:22)
[2018-07-02] MEDS: BRIMONIDINE/TIMOLOL (OPTH SOLN 5 ML DRPETTE OP SCH (08:50)
[2018-07-02] MEDS: HYDRALAZINE HCL 25 MG TAB PO SCH ×3 (08:50→21:04)
[2018-07-02] MEDS: FERROUS SULFATE 325 MG TAB PO SCH ×2 (08:50→17:22)
[2018-07-02] MEDS: FOLIC ACID/CYANOCOB/PYRIDOXINE TAB PO SCH (08:50)
[2018-07-02] MEDS: TACROLIMUS 1 MG CAP PO SCH ×2 (08:50→17:22)
[2018-07-02] MEDS: MAGNESIUM OXIDE 400 MG TAB PO SCH (08:50)
[2018-07-02] MEDS: PREDNISONE 5 MG TAB PO SCH (08:50)
[2018-07-02] MEDS: LIDOCAINE 5% PATCH TP SCH (08:50)
[2018-07-02] MEDS: FLUCONAZOLE 100 MG TAB PO SCH (08:50)
[2018-07-02] MEDS: METOPROLOL TARTRATE 50 MG TAB PO SCH ×2 (08:50→17:22)
[2018-07-02] MEDS: [UNRECOGNIZED DRUG - OTHER] TOP SCH (09:00)
[2018-07-02] MEDS: ZINC ACETATE TOP SCH (09:00)
--- NOTE | 2018-07-02 09:00 | NUR ---
PATIENT REFUSING LÓPEZ HOSE AND SCDS. EDUCATED PATIENT ON THE IMPORTANCE OF THEM, PATIENT STILL REFUSED.
--- NOTE | 2018-07-02 13:46 | NUR ---
ASSESSMENT: Spiritual despair [employer] D [employer] responded to consult request by RN/CM. Pt overwhelmed by illness. Pt states, "I'm tired of constantly being in pain" and "I'm ready to go whenever the Lord takes me." Pt's at bedside. Pt states he doesn't want to be "a burden" to his family. Pt's "praying for a miracle" but states she will "accept the will of God." Pt's states their daughter (a nurse) will help with his care after they return home. Intervention: Provided empathic listening, prayer and facilitated discussion concerning end of life. Outcome: Will follow as able. DIPAK Calabreselain Spiritual Care Department O: [phone] Pager: [phone] ([phone] + number calling from)
[2018-07-02] MEDS: WARFARIN SOD 1 MG TAB PO SCH (17:00)
--- NOTE | 2018-07-02 17:10 | NUR ---
SPOKE TO DR. ARZOLA REGARDING PATIENT'S CURRENT INR OF 3.15, PER MD HOLD TODAY'S DOSE OF COUMADIN AND REPEAT PT/INR TOMORROW MORNING.
--- NOTE | 2018-07-02 18:55 | NUR ---
REPORT GIVEN TO ONCOMING NURSE, WALKING ROUNDS DONE. PATIENT IS RESTING IN BED. NO ACUTE DISTRESS NOTED. CALL LIGHT WITHIN REACH. BED IN THE LOWEST POSITION.
--- NOTE | 2018-07-02 19:04 | NUR ---
PT IS RESTING IN BED. NO RESPIRATORY DISTRESS NOTED. BED IN THE LOWEST POSITION, LOCKED, AND CALL LIGHT WITHIN REACH. WILL CONTINUE TO MONITOR.
[2018-07-02] MEDS: COLLAGENASE OINTMENT 30 GM TUBE TP SCH (21:04)
[2018-07-02] MEDS: LATANOPROST(OPTH) 2.5 ML BTL OP SCH (21:04)
--- NOTE | 2018-07-02 21:04 | NUR ---
APPLY LÓPEZ HOSE STOCKING TO PT BILATERAL LOWER EXTREMITY. WILL CONTINUE TO MONITOR.
[2018-07-02] MEDS: INSULIN GLARGINE 100 UNITS/ML VIAL SQ SCH (21:06)
[2018-07-02] MEDS: DIPHENHYDRAMINE HCL 25 MG CAP PO PRN (21:17)
[2018-07-03] VITALS (8 sets, daily range): BP systolic 116–168; BP diastolic 65–101
[2018-07-03] MEDS: BUMETANIDE INJ 0.25MG/ML 4ML VIAL IV SCH ×2 (01:13→10:02)
[2018-07-03] MEDS: PIPERACILLIN/TAZO 2.25 GM 50 ML IV SCH ×4 (02:44→21:37)
[2018-07-03 07:07] LABS: BASOPHILS % 0.3 % (0.0-1.0); EOSINOPHILS # (AUTO) 0.1 (0.0-0.4); EOSINOPHILS % 0.5 % (0.0-6.0); HEMATOCRIT 30.6 % (38.2-49.6); HEMOGLOBIN 9.8 g/dL (14.0-18.0); LYMPHOCYTES % 8.7 % (18.0-39.1); MEAN CORPUSCULAR HEMOGLOBIN 28.2 pg (28-32); MEAN CORPUSCULAR VOLUME 87.9 fL (81-99); MONOCYTES # (AUTO) 0.9 (0.2-0.8); MONOCYTES % 8.2 % (4.4-11.3); NEUTROPHILS % 81.2 % (38.7-80.0); PLATELET COUNT 326 x10e3/uL (140-360); RED BLOOD COUNT 3.48 x10e6/uL (4.3-5.7); RED CELL DISTRIBUTION WIDTH 18.2 % (11.7-14.4)
[2018-07-03 07:16] LABS: INR 3.23; PROTHROMBIN TIME 33.8 seconds (11.9-14.5)
[2018-07-03 07:18] LABS: ANION GAP 17.5 mmol/L (8-16); CALCIUM 8.1 mg/dL (8.4-10.2); CREATININE, SERUM 2.69 mg/dL (0.72-1.25); POTASSIUM 3.5 mmol/L (3.5-5.1)
[2018-07-03] MEDS: INSULIN LISPRO 100 UNIT/1 ML 3ML VIAL SQ SCH ×4 (07:30→21:00)
--- NOTE | 2018-07-03 07:30 | NUR ---
PT IS IN BED SUPINE, ON RA WITH NON LABORED BREATHING, DAUGHTER AT BEDSIDE. PT HAS DIAPER, CONDOM CATH., AND COLOSTOMY BAG. SIDE RAILS UP X2, BED IN LOWEST POSITION, AND CALL MORATAYA WITHIN REACH.
--- NOTE | 2018-07-03 08:46 | NUR ---
Pt unavailable at this time. Pt's on phone requesting medical equipment in preparation for discharge. I will follow up as able. DIPAK RODRIGUEZ Delinquency Prevention Social Worker Spiritual Care Department O: [phone] Pager: [phone] ([phone] + number calling from)
[2018-07-03] MEDS: ZINC ACETATE TOP SCH (09:00)
[2018-07-03] MEDS: [UNRECOGNIZED DRUG - OTHER] TOP SCH (09:00)
[2018-07-03] MEDS: FERROUS SULFATE 325 MG TAB PO SCH ×2 (09:36→16:45)
[2018-07-03] MEDS: BRIMONIDINE/TIMOLOL (OPTH SOLN 5 ML DRPETTE OP SCH (09:37)
[2018-07-03] MEDS: HYDRALAZINE HCL 25 MG TAB PO SCH ×3 (09:37→21:38)
[2018-07-03] MEDS: METOPROLOL TARTRATE 50 MG TAB PO SCH ×2 (09:38→16:46)
[2018-07-03] MEDS: MAGNESIUM OXIDE 400 MG TAB PO SCH (09:38)
[2018-07-03] MEDS: FLUCONAZOLE 100 MG TAB PO SCH (09:38)
[2018-07-03] MEDS: FOLIC ACID/CYANOCOB/PYRIDOXINE TAB PO SCH (09:39)
[2018-07-03] MEDS: PREDNISONE 5 MG TAB PO SCH (09:39)
[2018-07-03] MEDS: SODIUM BICARBONATE 650 MG TAB PO SCH ×2 (09:40→16:52)
[2018-07-03] MEDS: TACROLIMUS 1 MG CAP PO SCH ×2 (09:40→16:46)
[2018-07-03] MEDS: BALSAM PERU/CASTOR OIL 60 GM OINT...G. TP SCH (09:41)
[2018-07-03] MEDS: LIDOCAINE 5% PATCH TP SCH (09:41)
[2018-07-03] MEDS: CALCITRIOL 0.25 MCG CAP PO SCH (09:42)
[2018-07-03] MEDS ORDERED: SODIUM CHLORIDE 0.9% 250ML 250 ML ONE (10:01)
--- NOTE | 2018-07-03 13:40 | NUR ---
PT IS RESTING IN BED WITH EYES CLOSED, CHEST IS MOVING UP AND DOWN WITH UNLABORED BREATHING. NO S/S OF DISTRESS. SIDE RAILS UP X2, SIDE RAILS UP X2, AND CALL MORATAYA WITHIN REACH.
[2018-07-03] MEDS ORDERED: POTASSIUM CHLORIDE 20 MEQ TAB CR PO STA (15:21)
--- NOTE | 2018-07-03 16:22 | NUR ---
RECEIVED CALL FROM [facility] STATING THEY WERE NOT ABLE TO ACCEPT THE PT BACK. REFERRAL WAS FAXED TO [facility] @ OFF: [phone] / FAX: [phone]. SPOKE W RIANNA ECHEVERRIA REGARDING BED DELIVERY. [facility] THE PROVIDED HER CREDIT CARD INFO THIS AM AND TIME WAS SCHEDULED FOR DELIVERY AT THAT TIME. [facility] ETA WAS 8PM. NOTIFIED JOSEPH, BEDSIDE NURSE.
[2018-07-03] MEDS: BUMETANIDE 1 MG TAB PO SCH (16:45)
--- NOTE | 2018-07-03 16:45 | NUR ---
Nutrition Intervention Note RD Recommendation(s) for Physician: - Continue renal diabetic diet. - Rec MVi w/ minerals, vitamin C 500 mg once a day, and zinc sulfate 220 mg once a day x 10 days to promote wound healing Plan of Care: RD following, monitoring for tolerance and adequacy, Nutrition reason for involvement: Follow up RD Assessment: 07/03: Follow up: Pt reported he has a poor intake here in the hospital d/t not liking the food, pt was seen starting to consume his lunch. Pt appeared frustrated and not wanting to converse. No meal percentages are recorded within EMR. Pt denied any ONS, Glucerna supplement was never ordered per EMR. Please consult RD if pt changes his mind regarding nutritional supplement. Encouraged po and taking advantage of his hunger. Pt has colostomy bag. Pt had no other complaints. Will continue to monitor. 06/29: Pt seen for follow up. Pt discussed during am rounds, ongoing discussion of discharge to SNF and pt does not require HD per Nephrology. Pt's at bedside reports pt's intake is based on receiving foods he likes, obtained pt preferences and noted in [facility]alt[facility]. Pt with 50-100% meal intake per nursing. Pt with no c/o GI distress, no changes in colostomy output per . No questions or concerns at time of visit. Current rec's remain appropriate. Will continue to monitor. 06/23 Chart reviewed. 63yo M, who was admitted from SNF to ER for severe joint pain ongoing for 1 week. Pt was well known to me from his previous admissions. Pt was d/c from [facility] to a alf on 06/17/2018. Pt continued to have poor appetite. Pt complained of the foods at alf taste terrible. Pt would like to have Glucerna TID while in the hospital. No GI complains noted. Pt stated it takes a while for me to chew the foods but denied any swallowing difficulty. Pt refused texture modification. on bedside assists with feeding. Will continue to monitor and follow. Please consult as needed. 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 Sacral - Stage II Pressure Ulcer with DTI - Present On Admission 2. Right Foot Plantar - DFU grade 3 - Very Slow Healing Ulcer. Labs: 07/03: POC-Gluc 115 06/29: BUN 84, Cr 2.61, Ca 8.1 Meds: lispro, mag-ox, calcitriol, Na Bicarb, nephrovite, prograf, prednisone, feosol, lantus, coumadin, bumetamide, zofran, Ht: 66in Wt: 207.06lb 07/03: 215 lbs BMI: 33.4kg/m2 IBW: 142lb Malnutrition Evaluation (06/23) The patient does not meet criteria for a specified degree of malnutrition at this time. Will re-evaluate at follow-up as appropriate. Energy intake: <75% of estimated energy requirements for >7 days Weight loss: ~7.8% weight loss in a year Fat loss: N/A Muscle loss: N/A Supporting Evidence: Fluid accumulation: On lasix Functional Status: measurably reduced Nutrition Prescription (Diet Order): 1800 ADA diet Estimated Nutritional Needs: Calories: 2050 - 2460kcal (25-30kcal/kg/d) Weight used: UBW of 181lbs Protein : 66 - 98g (0.8-1.2g/kg/d) Weight used: UBW of 181lbs Diet Adequacy: Not meeting calorie needs, Not meeting protein needs Diet Education Needs Assessment: Diet education indicated, but patient not appropriate for education at this time. Nutrition Care Level: mod Nutrition Diagnosis: Inadequate oral intake related to acute illness as evidenced by pt reported poor appetite. Goal: Patient will meet 75-100% of estimated needs by follow up Progress: Progressing Interventions: Carb-modified diet, mineral (sodium, phos, potassium) Commercial beverage Monitoring/Evaluation: Total energy intake, Total protein intake, Modified diet, Liquid supplement, Weight change Signed: Janet Otero RD, LD, [facility]
--- NOTE | 2018-07-03 17:10 | NUR ---
PT IS IN BED ON HIS RIGHT SIDE. AT BEDSIDE. NO S/S OF DISTRESS. BED IN LOWEST POSITION, SIDE RAILS UP X2, AND CALL MORATAYA WITHIN REACH.
[2018-07-03] MEDS: INSULIN GLARGINE 100 UNITS/ML VIAL SQ SCH (21:00)
[2018-07-03] MEDS: LATANOPROST(OPTH) 2.5 ML BTL OP SCH (21:37)
[2018-07-03] MEDS: DIPHENHYDRAMINE HCL 25 MG CAP PO PRN (22:16)
[2018-07-03] MEDS: COLLAGENASE OINTMENT 30 GM TUBE TP SCH (22:16)
--- NOTE | 2018-07-03 22:37 | NUR ---
CALLED DR. CHA IN REGARDS TO PATIENT REQUESTING SOMETHING FOR PAIN, WAITING FOR CALL BACK
[2018-07-04] VITALS (8 sets, daily range): BP systolic 94–191; BP diastolic 52–97
[2018-07-04] MEDS ORDERED: ACETAMINOPHEN 325 MG TAB PO PRN
[2018-07-04] MEDS: TRAMADOL HCL 50 MG TAB PO PRN ×4 (00:36→22:23)
[2018-07-04] MEDS: PIPERACILLIN/TAZO 2.25 GM 50 ML IV SCH ×4 (02:39→20:05)
[2018-07-04] MEDS: INSULIN LISPRO 100 UNIT/1 ML 3ML VIAL SQ SCH ×4 (07:30→20:43)
[2018-07-04] MEDS: FERROUS SULFATE 325 MG TAB PO SCH ×2 (08:50→17:00)
[2018-07-04] MEDS: HYDRALAZINE HCL 25 MG TAB PO SCH ×3 (08:50→20:45)
[2018-07-04] MEDS: FLUCONAZOLE 100 MG TAB PO SCH (08:51)
[2018-07-04] MEDS: BUMETANIDE 1 MG TAB PO SCH ×2 (08:51→17:00)
[2018-07-04] MEDS: METOPROLOL TARTRATE 50 MG TAB PO SCH ×2 (08:51→17:01)
[2018-07-04] MEDS: BALSAM PERU/CASTOR OIL 60 GM OINT...G. TP SCH (09:00)
[2018-07-04] MEDS: ZINC ACETATE TOP SCH (09:00)
[2018-07-04] MEDS: [UNRECOGNIZED DRUG - OTHER] TOP SCH (09:00)
[2018-07-04] MEDS: TACROLIMUS 1 MG CAP PO SCH ×2 (09:04→17:01)
[2018-07-04] MEDS: PREDNISONE 5 MG TAB PO SCH (09:04)
[2018-07-04] MEDS: MAGNESIUM OXIDE 400 MG TAB PO SCH (09:04)
[2018-07-04] MEDS: LIDOCAINE 5% PATCH TP SCH (09:04)
[2018-07-04] MEDS: SODIUM BICARBONATE 650 MG TAB PO SCH ×2 (09:04→17:01)
[2018-07-04] MEDS: FOLIC ACID/CYANOCOB/PYRIDOXINE TAB PO SCH (09:04)
[2018-07-04] MEDS ORDERED: BUMETANIDE INJ 0.25MG/ML 4ML VIAL IV ONE (10:30)
[2018-07-04] MEDS ORDERED: METOLAZONE 5 MG TAB PO ONE (11:30)
[2018-07-04] MEDS: BRIMONIDINE/TIMOLOL (OPTH SOLN 5 ML DRPETTE OP SCH (11:48)
--- NOTE | 2018-07-04 12:00 | NUR ---
CONDOM CATH APPLIED REQUESTED BY DR JOHNS
--- NOTE | 2018-07-04 14:30 | NUR ---
CONDOM CATH UNABLE TO STAY ON PLACE REAPPLIED.
--- NOTE | 2018-07-04 16:33 | Diagnostic Imaging Report ---
EXAM: Single AP view of the chest (Portable). COMPARISON: 06/30/2018 INDICATION: ^pneumonia, pleural effusion follow up ^[id number] ^1600 FINDINGS: Single portable AP view of the chest. The visualized bones and soft tissues, cardiac silhouette lungs, pleura appear unchanged. IMPRESSION: 1. Lines/tubes: None 2. Worsening patchy airspace opacities, right greater than left, may be a combination of interstitial edema and multifocal pneumonia. 3. Stable cardiomegaly. Signed by: Dr. Adriana Fu M.D. on 07/04/2018 4:29 PM
--- NOTE | 2018-07-04 18:27 | NUR ---
PT UP IN BED CONDOM CATH REAPPLIED.
[2018-07-04] MEDS: LATANOPROST(OPTH) 2.5 ML BTL OP SCH (20:42)
[2018-07-04] MEDS: INSULIN GLARGINE 100 UNITS/ML VIAL SQ SCH (20:43)
[2018-07-04] MEDS: COLLAGENASE OINTMENT 30 GM TUBE TP SCH (20:44)
[2018-07-04] MEDS: DIPHENHYDRAMINE HCL 25 MG CAP PO PRN (23:47)
[2018-07-05] VITALS (7 sets, daily range): BP systolic 133–187; BP diastolic 64–80
[2018-07-05] MEDS: PIPERACILLIN/TAZO 2.25 GM 50 ML IV SCH ×4 (04:11→21:32)
[2018-07-05 06:39] LABS: BASOPHILS % 0.2 % (0.0-1.0); EOSINOPHILS # (AUTO) 0.1 (0.0-0.4); EOSINOPHILS % 1.4 % (0.0-6.0); HEMATOCRIT 30.3 % (38.2-49.6); HEMOGLOBIN 9.5 g/dL (14.0-18.0); LYMPHOCYTES # (AUTO) 1.1 (1.0-3.2); MEAN CORPUSCULAR HEMOGLOBIN 28.3 pg (28-32); MEAN CORPUSCULAR HGB CONC 31.4 g/dL (31-35); MEAN CORPUSCULAR VOLUME 90.2 fL (81-99); MONOCYTES # (AUTO) 0.7 (0.2-0.8); MONOCYTES % 7.5 % (4.4-11.3); NEUTROPHILS # (AUTO) 7.6 (2.1-6.9); NEUTROPHILS % 78.7 % (38.7-80.0); PLATELET COUNT 302 x10e3/uL (140-360); RED BLOOD COUNT 3.36 x10e6/uL (4.3-5.7); RED CELL DISTRIBUTION WIDTH 18.2 % (11.7-14.4)
[2018-07-05 06:56] LABS: INR 3.2; PROTHROMBIN TIME 33.5 seconds (11.9-14.5)
[2018-07-05 07:04] LABS: ALBUMIN 1.5 g/dL (3.5-5.0); ALBUMIN/GLOBULIN RATIO 0.4 (0.8-2.0); ANION GAP 16.8 mmol/L (8-16); CALCIUM 8.5 mg/dL (8.4-10.2); CREATININE, SERUM 2.28 mg/dL (0.72-1.25); POTASSIUM 3.8 mmol/L (3.5-5.1)
[2018-07-05] MEDS: INSULIN LISPRO 100 UNIT/1 ML 3ML VIAL SQ SCH ×4 (07:30→21:35)
[2018-07-05] MEDS: PREDNISONE 5 MG TAB PO SCH (09:00)
[2018-07-05] MEDS: HYDRALAZINE HCL 25 MG TAB PO SCH ×3 (09:00→21:32)
[2018-07-05] MEDS: [UNRECOGNIZED DRUG - OTHER] TOP SCH (09:00)
[2018-07-05] MEDS: FERROUS SULFATE 325 MG TAB PO SCH ×2 (09:00→17:00)
[2018-07-05] MEDS: FLUCONAZOLE 100 MG TAB PO SCH (09:00)
[2018-07-05] MEDS: TACROLIMUS 1 MG CAP PO SCH ×2 (09:00→17:00)
[2018-07-05] MEDS: BRIMONIDINE/TIMOLOL (OPTH SOLN 5 ML DRPETTE OP SCH (09:00)
[2018-07-05] MEDS: SODIUM BICARBONATE 650 MG TAB PO SCH ×2 (09:00→17:00)
[2018-07-05] MEDS: FOLIC ACID/CYANOCOB/PYRIDOXINE TAB PO SCH (09:00)
[2018-07-05] MEDS: METOPROLOL TARTRATE 50 MG TAB PO SCH ×2 (09:00→17:00)
[2018-07-05] MEDS: TRAMADOL HCL 50 MG TAB PO PRN ×2 (09:00→18:38)
[2018-07-05] MEDS: BUMETANIDE 1 MG TAB PO SCH ×2 (09:00→17:00)
[2018-07-05] MEDS: BALSAM PERU/CASTOR OIL 60 GM OINT...G. TP SCH (09:00)
[2018-07-05] MEDS: ZINC ACETATE TOP SCH (09:00)
[2018-07-05] MEDS: LIDOCAINE 5% PATCH TP SCH (09:00)
[2018-07-05] MEDS: MAGNESIUM OXIDE 400 MG TAB PO SCH (09:00)
--- NOTE | 2018-07-05 16:30 | NUR ---
PT TRANSPORTED TO XRAY VIA BED,O2 2L NC IN PLACE,
--- NOTE | 2018-07-05 17:05 | NUR ---
PT RETURNED TO ROOM VIA BED,C/O NAUSEA MEDICATED.
--- NOTE | 2018-07-05 18:06 | Diagnostic Imaging Report ---
EXAMINATION: CT of the abdomen and pelvis without contrast. TECHNIQUE: Spiral CT images of the abdomen and pelvis were performed from the lung bases to the lesser trochanters. No intravenous contrast was given due to decreased GFR. Coronal and sagittal reformatted images were obtained. COMPARISON: None. CLINICAL HISTORY:Right Abdominal pain, CAD, anemia DISCUSSION: ABSENCE OF INTRAVENOUS CONTRAST DECREASES SENSITIVITY FOR DETECTION OF FOCAL LESIONS AND VASCULAR PATHOLOGY. ABDOMEN/PELVIS: LOWER THORAX: Moderate bilateral pleural effusions and associated compressive atelectasis of the lower lobes. Atherosclerotic calcification of the coronary arteries and aortic valves. HEPATOBILIARY: No focal hepatic lesions. No intra or extrahepatic biliary ductal dilation. GALLBLADDER: No radio-opaque stones or sludge. No wall thickening. SPLEEN: No splenomegaly. PANCREAS: No focal masses or ductal dilatation. Marked pancreatic atrophy. ADRENALS: No adrenal nodules. KIDNEYS/URETERS: Bilateral atrophic kidneys. No renal stones Extensive atherosclerotic calcification of the renal arteries and intrarenal branches. No contour abnormality. No hydronephrosis or obstruction. Transplant kidney noted in the right pelvis, without hydronephrosis or obstruction. No renal stones. PELVIC ORGANS/BLADDER: Bladder is grossly unremarkable. Pelvic phleboliths. Dystrophic calcifications in the prostate. PERITONEUM/RETROPERITONEUM: Small amount of free fluid in the anterior pelvis (series 2, image 70). LYMPH NODES: No intra-abdominal,retroperitoneal, pelvic or inguinal lymphadenopathy. VESSELS: Extensive atherosclerotic calcification of the abdominal aorta, aortic branches and iliac vessels. IVC filter in place. GI TRACT: Left lower quadrant colostomy. No bowel dilation or evidence of obstruction. No significant pericolonic inflammatory changes. BONES AND SOFT TISSUES: No aggressive lytic lesions. Degenerative disc changes in the lower thoracic spine. Marked soft tissue edema/anasarca involving predominantly the right lateral abdominal wall subcutaneous tissues, with asymmetry/swelling of the right internal, external oblique and transverse abdominis muscles (series 2, image 38), and left gluteal subcutaneous tissues (series 2, image 48) IMPRESSION: 1.Marked soft tissue edema/anasarca involving predominantly the right lateral abdominal wall, with asymmetry/swelling of the right internal, external oblique and transverse abdominis muscles. No well-defined fluid collection is identified. 2. Moderate to marked subcutaneous edema is noted in the left gluteal subcutaneous tissues. 3. Moderate bilateral pleural effusions and associated compressive atelectasis of the lower lobes. 4. Bilateral oneida renal atrophy. Transplant kidney noted in the right pelvis, without stones, hydronephrosis or obstruction 5. Extensive atherosclerotic calcification of the abdominal aorta, aortic branches and iliac vessels. Signed by: Dr. Salazar Patel M.D. on 07/05/2018 6:03 PM
[2018-07-05] MEDS: COLLAGENASE OINTMENT 30 GM TUBE TP SCH (21:32)
[2018-07-05] MEDS: LATANOPROST(OPTH) 2.5 ML BTL OP SCH (21:32)
[2018-07-05] MEDS: INSULIN GLARGINE 100 UNITS/ML VIAL SQ SCH (21:33)
[2018-07-06] VITALS (8 sets, daily range): BP systolic 172–214; BP diastolic 72–90
[2018-07-06] MEDS: PIPERACILLIN/TAZO 2.25 GM 50 ML IV SCH ×4 (02:30→20:28)
[2018-07-06] MEDS: TRAMADOL HCL 50 MG TAB PO PRN ×2 (04:07→17:50)
--- NOTE | 2018-07-06 06:07 | Diagnostic Imaging Report ---
EXAM: Single AP view of the chest (Portable). COMPARISON: 07/04/2018 INDICATION: Pleural effusion and pneumonia follow up FINDINGS: Single portable AP view of the chest. The visualized bones and soft tissues, cardiac silhouette lungs, pleura appear unchanged. IMPRESSION: 1. Lines/tubes: None 2. No significant interval change in bilateral patchy airspace opacities, right greater than left, may be a combination of interstitial edema and multifocal pneumonia. 3. Bilateral pleural effusions with fluid within the minor fusion, unchanged. 4. Stable cardiomegaly. Signed by: Dr. Willie Gutiérrez M.D. on 07/06/2018 6:04 AM
--- NOTE | 2018-07-06 07:26 | NUR ---
PATIENT ASSISTED WITH DIAPER CHANGE. REPOSITIONED IN BED. BRACE TO LEFT WRIST. WOUNDS TO RIGHT PLANTAR, ELBOWS, AND STAGE 2 TO SACRUM. BED IN LOWER POSITION, CALL LIGHT AT REACH.
[2018-07-06] MEDS: INSULIN LISPRO 100 UNIT/1 ML 3ML VIAL SQ SCH ×4 (07:30→20:29)
[2018-07-06] MEDS: ZINC ACETATE TOP SCH (09:00)
[2018-07-06] MEDS: [UNRECOGNIZED DRUG - OTHER] TOP SCH (09:00)
[2018-07-06] MEDS ORDERED: BUMETANIDE INJ 0.25MG/ML 4ML VIAL IV ONE (09:15)
[2018-07-06] MEDS: PREDNISONE 5 MG TAB PO SCH (09:24)
[2018-07-06] MEDS: METOPROLOL TARTRATE 50 MG TAB PO SCH ×2 (09:24→17:29)
[2018-07-06] MEDS: LIDOCAINE 5% PATCH TP SCH (09:24)
[2018-07-06] MEDS: FLUCONAZOLE 100 MG TAB PO SCH (09:24)
[2018-07-06] MEDS: TACROLIMUS 1 MG CAP PO SCH ×2 (09:24→17:28)
[2018-07-06] MEDS: FOLIC ACID/CYANOCOB/PYRIDOXINE TAB PO SCH (09:24)
[2018-07-06] MEDS: MAGNESIUM OXIDE 400 MG TAB PO SCH (09:24)
[2018-07-06] MEDS: FERROUS SULFATE 325 MG TAB PO SCH ×2 (09:24→17:29)
[2018-07-06] MEDS: SODIUM BICARBONATE 650 MG TAB PO SCH ×2 (09:24→17:29)
[2018-07-06] MEDS: BALSAM PERU/CASTOR OIL 60 GM OINT...G. TP SCH (09:25)
[2018-07-06] MEDS: HYDRALAZINE HCL 25 MG TAB PO SCH ×3 (09:25→20:28)
[2018-07-06] MEDS: BRIMONIDINE/TIMOLOL (OPTH SOLN 5 ML DRPETTE OP SCH (10:53)
--- NOTE | 2018-07-06 11:40 | NUR ---
PATIENT'S AT BED SIDE CHANGING DRESSING TO RIGHT PLANTAR WOUND. REPOSITIONED IN BED CALL LIGHT AT REACH.
[2018-07-06] MEDS: CALCITRIOL 0.25 MCG CAP PO SCH (12:26)
--- NOTE | 2018-07-06 14:00 | NUR ---
PATIENT NOTED WITH B/P OF 207/. MD CALLED AND MESSAGE LEFT. SCHEDULE B/P MEDICATION GIVEN. WILL CLOSELY MONITOR.
[2018-07-06] MEDS ORDERED: BUMETANIDE INJ 0.25MG/ML 4ML VIAL IV NR (14:45)
--- NOTE | 2018-07-06 14:55 | NUR ---
CALL BACK RECEIVED FROM , NOTIFIED OF PATIENT B/P, ORDER RECEIVED TO CALL DR PRO. CALL PLACED TO DR PRO, AWAITING CALL BACK. B/O AT THIS TIME 170/72. WILL CLOSELY MONITOR.
--- NOTE | 2018-07-06 15:57 | NUR ---
SECOND CALL PLACED TO DR PRO, AWAITING CALL BACK.
[2018-07-06] MEDS ORDERED: BUMETANIDE 1 MG TAB PO SCH (17:00)
--- NOTE | 2018-07-06 17:35 | NUR ---
CALL BACK RECEIVED FROM DR PRO, NOTIFIED OF PT ELEVATED BLOOD PRESSURE. NEW ORDERS RECEIVED.
[2018-07-06] MEDS ORDERED: LABETALOL HCL 5 MG/ML 20ML VIAL IV ONE (18:00)
[2018-07-06] MEDS ORDERED: METOLAZONE 5 MG TAB PO NR (18:00)
--- NOTE | 2018-07-06 18:15 | NUR ---
DC PLANNING: HOSPITAL BED TO BE DELIVERED TO PT'S HOME TODAY AFTER 3PM. TAHIR, RN / BEDSIDE RN STATES PT BP IS ELEVATED AND DC MAY BE HELD IF BP STAYS ELEVATED. WILL CONT TO FOLLOW.
[2018-07-06] MEDS ORDERED: LABETALOL HCL 5 MG/ML 20ML VIAL IV NR (18:30)
--- NOTE | 2018-07-06 19:20 | NUR ---
patient received awake, alert, lying quietly in bed. no c/o pain noted. respirations even and unlabored. 02/2l/nc in use. pm assessment complete. patient instructed to call for assistance when needed.
[2018-07-06] MEDS: LATANOPROST(OPTH) 2.5 ML BTL OP SCH (20:28)
[2018-07-06] MEDS: INSULIN GLARGINE 100 UNITS/ML VIAL SQ SCH (20:29)
[2018-07-06] MEDS: COLLAGENASE OINTMENT 30 GM TUBE TP SCH (20:44)
[2018-07-07] VITALS (8 sets, daily range): BP systolic 139–204; BP diastolic 61–115
[2018-07-07] MEDS: DIPHENHYDRAMINE HCL 25 MG CAP PO PRN ×2 (01:15→21:56)
[2018-07-07] MEDS: TRAMADOL HCL 50 MG TAB PO PRN ×3 (01:15→20:06)
--- NOTE | 2018-07-07 01:15 | NUR ---
patient medicated with ultram 50 mg po for c/o generalized pain 08/17 and benadryl 25 mg po for sleep at this time per patients request.
[2018-07-07] MEDS: PIPERACILLIN/TAZO 2.25 GM 50 ML IV SCH ×4 (02:35→20:06)
--- NOTE | 2018-07-07 04:00 | NUR ---
bath/skin care provided. colostomy emptied and rinsed out at this time. patient turned and repositioned for comfort q 2 hrs throughout the night. no c/o pain noted at this time.
[2018-07-07 07:05] LABS: BASOPHILS % 0.2 % (0.0-1.0); EOSINOPHILS % 0.5 % (0.0-6.0); HEMATOCRIT 30.7 % (38.2-49.6); HEMOGLOBIN 9.7 g/dL (14.0-18.0); LYMPHOCYTES % 11.3 % (18.0-39.1); MEAN CORPUSCULAR HEMOGLOBIN 28.4 pg (28-32); MEAN CORPUSCULAR HGB CONC 31.6 g/dL (31-35); MONOCYTES # (AUTO) 0.7 (0.2-0.8); MONOCYTES % 7.4 % (4.4-11.3); NEUTROPHILS % 79.5 % (38.7-80.0); PLATELET COUNT 269 x10e3/uL (140-360); RED BLOOD COUNT 3.41 x10e6/uL (4.3-5.7); RED CELL DISTRIBUTION WIDTH 18.1 % (11.7-14.4)
--- NOTE | 2018-07-07 07:22 | NUR ---
PATIENT IN BED RESTING WITH EYES CLOSED, NO RESPIRATORY DISTRESS OBSERVED. DRESSING INTACT TO MULTIPLE WOUNDS. BRACE INTACT TO LEFT WRIST. BED IN LOWER POSITION, CALL LIGHT AT REACH. FAMILY AT BED SIDE.
[2018-07-07 07:27] LABS: ANION GAP 13.2 mmol/L (8-16); CALCIUM 8.7 mg/dL (8.4-10.2); CREATININE, SERUM 2.13 mg/dL (0.72-1.25); POTASSIUM 3.2 mmol/L (3.5-5.1)
[2018-07-07] MEDS: INSULIN LISPRO 100 UNIT/1 ML 3ML VIAL SQ SCH ×4 (07:30→20:59)
--- NOTE | 2018-07-07 08:00 | NUR ---
PATIENT FEET WITH +2 EDEMA. ELEVATED ON PILLOW, PATIENT REQUESTING PILLOW TO BE REMOVED. HEEL PROTECTORS OFFERED, PATIENT AND REFUSED. EDUCATED ON THE IMPORTANCE OF KEEPING LEGS ELEVATED, PATIENT AGREED TO KEEP LEGS ELEVATED ON PILLOW. REPOSITIONED IN BED BY 2 STAFFS. BED IN LOWER POSITION AND LOCKED. CALL LIGHT AT REACH, AT BED SIDE.
[2018-07-07] MEDS: FOLIC ACID/CYANOCOB/PYRIDOXINE TAB PO SCH (08:51)
[2018-07-07] MEDS: FERROUS SULFATE 325 MG TAB PO SCH ×2 (08:51→17:14)
[2018-07-07] MEDS: MAGNESIUM OXIDE 400 MG TAB PO SCH (08:51)
[2018-07-07] MEDS: METOPROLOL TARTRATE 50 MG TAB PO SCH ×2 (08:51→17:14)
[2018-07-07] MEDS: HYDRALAZINE HCL 25 MG TAB PO SCH ×3 (08:51→20:06)
[2018-07-07] MEDS: PREDNISONE 5 MG TAB PO SCH (08:51)
[2018-07-07] MEDS: FLUCONAZOLE 100 MG TAB PO SCH (08:51)
[2018-07-07] MEDS: [UNRECOGNIZED DRUG - OTHER] TOP SCH (08:52)
[2018-07-07] MEDS: LIDOCAINE 5% PATCH TP SCH (08:52)
[2018-07-07] MEDS: SODIUM BICARBONATE 650 MG TAB PO SCH (08:52)
[2018-07-07] MEDS: ZINC ACETATE TOP SCH (08:52)
[2018-07-07] MEDS: TACROLIMUS 1 MG CAP PO SCH ×2 (08:52→17:14)
[2018-07-07] MEDS ORDERED: BUMETANIDE 1 MG TAB PO SCH (09:00)
[2018-07-07] MEDS: BRIMONIDINE/TIMOLOL (OPTH SOLN 5 ML DRPETTE OP SCH (10:13)
[2018-07-07] MEDS: BALSAM PERU/CASTOR OIL 60 GM OINT...G. TP SCH (10:13)
--- NOTE | 2018-07-07 11:01 | NUR ---
PATIENT ASSISTED WITH DIAPER CHANGE, REPOSITIONED IN BED. C/O COLD, WARM BLANKET PROVIDED. BED IN LOWER POSITION, CALL LIGHT AT REACH.
[2018-07-07] MEDS: CLONIDINE HCL 0.1 MG TAB PO PRN ×2 (11:55→20:06)
--- NOTE | 2018-07-07 13:30 | NUR ---
PATIENT NOTED WITH B/P OF 204/78. PRN CLONIDINE GIVEN ORDERED. B/P RECHECKED WITH THE READING OF 146/85. WILL CONTINUE TO MONITOR.
--- NOTE | 2018-07-07 16:14 | NUR ---
SPOKE WITH MD REGARDING ABNORMAL LAB RESULT AND FLUCTUATING B/P. NEW ORDERS RECEIVED.
[2018-07-07] MEDS ORDERED: POTASSIUM CHLORIDE 10MEQ EA PO NR ×2 (16:15→16:30)
[2018-07-07] MEDS: NIFEDIPINE CR 30 MG TAB PO SCH (17:14)
--- NOTE | 2018-07-07 19:30 | NUR ---
patient received awake, alert, lying quietly in bed. no c/o pain noted at this time. pm assessment complete. remains at the bedside. pt/ instructed to call for assistance when needed.
[2018-07-07] MEDS: BUMETANIDE 1 MG TAB PO SCH (20:06)
[2018-07-07] MEDS: LATANOPROST(OPTH) 2.5 ML BTL OP SCH (20:06)
--- NOTE | 2018-07-07 20:06 | NUR ---
patient medicated with scheduled hs medication along with ultram 50 mg po for c/o headache and catapres 0.1 mg po for bp 183/110 hr 81. will continue to monitor.
[2018-07-07] MEDS: INSULIN GLARGINE 100 UNITS/ML VIAL SQ SCH (20:29)
[2018-07-07] MEDS: COLLAGENASE OINTMENT 30 GM TUBE TP SCH (21:00)
--- NOTE | 2018-07-07 21:00 | NUR ---
right foot dressing not changed. dressing changed today by patients .
--- NOTE | 2018-07-07 21:56 | NUR ---
patient medicated with benadryl 25 mg po for sleep per patients request at this time.
[2018-07-08] VITALS: BP 119/73
--- NOTE | 2018-07-08 | NUR ---
bp 119/73 hr 103 no further c/o pain noted. patient repositioned for pain. remains at the bedside.
[2018-07-08] MEDS: PIPERACILLIN/TAZO 2.25 GM 50 ML IV SCH ×3 (03:00→15:15)
[2018-07-08] MEDS: TRAMADOL HCL 50 MG TAB PO PRN ×2 (03:05→17:05)
--- NOTE | 2018-07-08 03:05 | NUR ---
patient medicated with ultram 50 mg po for generalized pain 5/10 at this time.
[2018-07-08 04:00] VITALS: BP 132/50
[2018-07-08] MEDS: INSULIN LISPRO 100 UNIT/1 ML 3ML VIAL SQ SCH ×3 (07:30→16:30)
--- NOTE | 2018-07-08 07:30 | NUR ---
PT UP IN BED NO DISTRESS NOTED,C/O PAIN TO LOWER EXTREMITIES
[2018-07-08 07:45] VITALS: BP 96/46
[2018-07-08 08:00] VITALS: BP 98/49
[2018-07-08] MEDS: FERROUS SULFATE 325 MG TAB PO SCH ×2 (08:00→17:00)
[2018-07-08] MEDS: LIDOCAINE 5% PATCH TP SCH (09:00)
[2018-07-08] MEDS: PREDNISONE 5 MG TAB PO SCH (09:00)
[2018-07-08] MEDS: [UNRECOGNIZED DRUG - OTHER] TOP SCH (09:00)
[2018-07-08] MEDS: MAGNESIUM OXIDE 400 MG TAB PO SCH (09:00)
[2018-07-08] MEDS: BRIMONIDINE/TIMOLOL (OPTH SOLN 5 ML DRPETTE OP SCH (09:00)
[2018-07-08] MEDS: FOLIC ACID/CYANOCOB/PYRIDOXINE TAB PO SCH (09:00)
[2018-07-08] MEDS: HYDRALAZINE HCL 25 MG TAB PO SCH ×2 (09:00→15:00)
[2018-07-08] MEDS: ZINC ACETATE TOP SCH (09:00)
[2018-07-08] MEDS: TACROLIMUS 1 MG CAP PO SCH ×2 (09:00→17:00)
[2018-07-08] MEDS: NIFEDIPINE CR 30 MG TAB PO SCH (09:00)
[2018-07-08] MEDS: BUMETANIDE 1 MG TAB PO SCH ×2 (09:00→15:00)
[2018-07-08] MEDS: METOPROLOL TARTRATE 50 MG TAB PO SCH ×2 (09:00→17:00)
[2018-07-08] MEDS: FLUCONAZOLE 100 MG TAB PO SCH (09:00)
--- NOTE | 2018-07-08 10:44 | NUR ---
MET W THE PT AT THE BEDSIDE FOR IMM. NOT PRESENT. CALL MADE TO LEE SMITH @[phone]. EXPLAINED THE IMM LETTER. VERBALIZED UNDERSTANDING. IMM WAS WITNESSED BY CHANEL MCNAMARA. COPY TO BEDSIDE AND COPY TO CHART. INQUIRED ABOUT PT DC PLAN. CM INFORMED DR. HUTCHISON WANTED DR. PRO TO SEE THE PT FIRST, BEFORE PT CAN BE DISCHARGED. WILL AWAIT DR. PRO'S VISIT.
[2018-07-08] MEDS: CALCITRIOL 0.25 MCG CAP PO SCH (10:58)
[2018-07-08] MEDS: BALSAM PERU/CASTOR OIL 60 GM OINT...G. TP SCH (11:00)
[2018-07-08 11:53] VITALS: BP 160/60
--- NOTE | 2018-07-08 12:00 | NUR ---
PT UP IN BED DENIES PAIN AT THIS TIME
--- NOTE | 2018-07-08 15:24 | NUR ---
Nutrition Intervention Note RD Recommendation(s) for Physician: - Continue renal diabetic diet. - Continue Glucerna TID as ordered. - Rec MVi w/ minerals, vitamin C 500 mg once a day, and zinc sulfate 220 mg once a day x 10 days to promote wound healing. Plan of Care: RD following, monitoring for tolerance and adequacy Nutrition reason for involvement: Follow up RD Assessment: 07/08: Pt was discussed during AM rounds. Pending placement. Visited pt in the room. Pt still complained of poor appetite but drank 100% of Glucerna ordered. PCT recorded ~50% meal intake. Pt denied any nausea or vomiting. No complains of chewing or swallowing difficulty. Current diet is appropriate and adequate. Will continue to monitor and follow. 07/03: Follow up: Pt reported he has a poor intake here in the hospital d/t not liking the food, pt was seen starting to consume his lunch. Pt appeared frustrated and not wanting to converse. No meal percentages are recorded within EMR. Pt denied any ONS, Glucerna supplement was never ordered per EMR. Please consult RD if pt changes his mind regarding nutritional supplement. Encouraged po and taking advantage of his hunger. Pt has colostomy bag. Pt had no other complaints. Will continue to monitor. 06/29: Pt seen for follow up. Pt discussed during am rounds, ongoing discussion of discharge to SNF and pt does not require HD per Nephrology. Pt's at bedside reports pt's intake is based on receiving foods he likes, obtained pt preferences and noted in [facility]alt[facility]. Pt with 50-100% meal intake per nursing. Pt with no c/o GI distress, no changes in colostomy output per . No questions or concerns at time of visit. Current rec's remain appropriate. Will continue to monitor. 06/23 Chart reviewed. 63yo M, who was admitted from SNF to ER for severe joint pain ongoing for 1 week. Pt was well known to me from his previous admissions. Pt was d/c from [facility] to a long term on 06/17/2018. Pt continued to have poor appetite. Pt complained of the foods at long term taste terrible. Pt would like to have Glucerna TID while in the hospital. No GI complains noted. Pt stated it takes a while for me to chew the foods but denied any swallowing difficulty. Pt refused texture modification. on bedside assists with feeding. Will continue to monitor and follow. Please consult as needed. 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 Sacral - Stage II Pressure Ulcer with DTI - Present On Admission 2. Right Foot Plantar - DFU grade 3 - Very Slow Healing Ulcer. Labs: No labs on 07/08 07/03: POC-Gluc 115 06/29: BUN 84, Cr 2.61, Ca 8.1 Meds: calcitriol, bumex, prednisone, nepro-jael, Mg oxide Ht: 66in Wt: 207.06lb 07/03: 215 lbs 07/08: 200lb BMI: 33.4kg/m2 IBW: 142lb Malnutrition Evaluation (06/23) The patient does not meet criteria for a specified degree of malnutrition at this time. Will re-evaluate at follow-up as appropriate. Energy intake: <75% of estimated energy requirements for >7 days Weight loss: ~7.8% weight loss in a year Fat loss: N/A Muscle loss: N/A Supporting Evidence: Fluid accumulation: On lasix Functional Status: measurably reduced Nutrition Prescription (Diet Order): 1800 ADA diet Estimated Nutritional Needs: Calories: 2050 - 2460kcal (25-30kcal/kg/d) Weight used: UBW of 181lbs Protein : 66 - 98g (0.8-1.2g/kg/d) Weight used: UBW of 181lbs Diet Adequacy: meeting calorie needs, meeting protein needs Diet Education Needs Assessment: Diet education indicated, but patient not appropriate for education at this time. Nutrition Care Level: low Nutrition Diagnosis: Inadequate oral intake related to acute illness as evidenced by pt reported poor appetite. Goal: Patient will meet 75-100% of estimated needs by follow up Progress: Progressing Interventions: Carb-modified diet, mineral (sodium, phos, potassium) Commercial beverage Monitoring/Evaluation: Total energy intake, Total protein intake, Modified diet, Liquid supplement, Weight change Signed: Suyapa Rose, , RD, LD
[2018-07-08 16:00] VITALS: BP 127/59
[2018-07-08] MEDS ORDERED: BUMETANIDE1 MG PO (16:07)
[2018-07-08] MEDS ORDERED: HEMOCYTE PLUS1 EACH PO (16:10)
[2018-07-08] MEDS ORDERED: ULTRAM50 MG PO (16:10)
[2018-07-08] MEDS ORDERED: METOPROLOL TART50 MG PO (16:11)
--- NOTE | 2018-07-08 18:21 | NUR ---
PT DISCHARGED HOME IV DCD WITHOUT REDNESS OR SWELLING,PRESCRIPTIONS AND INSTRUCTIONS GIVEN COPY ON CHART.AMBULANCE CALLED,WILL BE 2 HRS .
--- NOTE | 2018-07-08 19:07 | NUR ---
[facility] HERE TO TRANSPORT PT HOME,STABLE CONDITION.
== END 2018-07-08 19:15 | disposition home health service (06) | DRG 291 ==
LOC: ER 14:56 → ERHOLD 21:09 → ICU 22:30 → IMCU 06-23 18:29 → MED/SURG3 07-01 00:22
PROVIDERS: ADMIT Internal Medicine; ATTEND Internal Medicine
PROC: 30233N1 Transfusion of Nonautologous Red Blood Cells into Peripheral Vein, Percutaneous Approach (ICD-10-PCS; 2018-06-22)
PROC: 0W993ZX Drainage of Right Pleural Cavity, Percutaneous Approach, Diagnostic (ICD-10-PCS; principal; 2018-06-25)
DX: I13.0 Hypertensive heart and chronic kidney disease with heart failure and stage 1 through stage 4 chronic kidney disease, or unspecified chronic kidney disease (principal); I50.23 Acute on chronic systolic (congestive) heart failure; J96.21 Acute and chronic respiratory failure with hypoxia; N17.0 Acute kidney failure with tubular necrosis; E87.1 Hypo-osmolality and hyponatremia; T86.11 Kidney transplant rejection; B37.49 Other urogenital candidiasis; L97.508 Non-pressure chronic ulcer of other part of unspecified foot with other specified severity; E66.2 Morbid (severe) obesity with alveolar hypoventilation; J90 Pleural effusion, not elsewhere classified; A52.16 Charcot's arthropathy (tabetic); N18.4 Chronic kidney disease, stage 4 (severe); D50.0 Iron deficiency anemia secondary to blood loss (chronic); M84.342A Stress fracture, left hand, initial encounter for fracture; X50.9XXA Other and unspecified overexertion or strenuous movements or postures, initial encounter; E11.22 Type 2 diabetes mellitus with diabetic chronic kidney disease; L89.152 Pressure ulcer of sacral region, stage 2; I48.91 Unspecified atrial fibrillation; Z79.01 Long term (current) use of anticoagulants; E11.621 Type 2 diabetes mellitus with foot ulcer; Z79.4 Long term (current) use of insulin; Z68.31 Body mass index [BMI] 31.0-31.9, adult; Z99.2 Dependence on renal dialysis; D89.9 Disorder involving the immune mechanism, unspecified; R62.7 Adult failure to thrive; Z93.3 Colostomy status; Z86.73 Personal history of transient ischemic attack (TIA), and cerebral infarction without residual deficits; M25.774 Osteophyte, right foot; Z87.01 Personal history of pneumonia (recurrent)
CPT/HCPCS: 32555; 36415; 71045; 71046; 74176; 80048; 80053; 81001; 82270; 82550; 82553; 82728; 82947; 82948; 83540; 83615; 83880; 84157; 84466; 84484; 85025; 85610; 85730; 86850; 86900; 86920; 87040; 87070; 87086; 87205; 88112; 88305; 89051; 93005; 93306; 93971; 96367; 96372; 96376; 97139; 99284; J1815; J1940; J2270; J2405; J2543; J7050; J7507; J7512; P9016

== ENCOUNTER 2018-09-05 22:37 | Emergency (ER) | payer OTHER ==
[~2018-09-05] VITALS: Ht 170.2 cm; Wt 90.7 kg
[~2018-09-05 22:37] MED LIST changes: +BUMETANIDE1 MG PO; +HEMOCYTE PLUS1 EACH PO; +ULTRAM50 MG PO
--- OUTSIDE RECORDS SUMMARY | 2018-09-05 22:40 | XMS REPORT | Clinical Summary ---
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 Manufactur er 09/06/2016 [id number] / / [id number] Adhesion Barrier,Seprafilm 5x6 - Cement/Wong N/A: Abdomen GENZYME [id number] ler/Adhesi SURGICAL Implanted: Qty: 2 on 07/06/2014 by [employer] Amrit Elam MD 02/06/2017 4301- / / [id number] Adhesion Barrier,Seprafilm 5x6 - Cement/Wong N/A: Abdomen GENZYME [id number] ler/Adhesi SURGICAL Implanted: Qty: 1 on 01/31/2015 by [employer] Amrit Elam MD [id number] / / Stent,Uret Polaris 5fr X 10cm - Uro Stent [employer] [id number] [employer]ENT[employer] Implanted: Qty: 1 on 05/24/2013 03/09/2016 [id number] / / [id number] Stent,Uret Polaris 5fr X 10cm - Uro Stent Right: Ureter [employer] [id number] [employer] Implanted: Qty: 1 on 01/21/2014 by Baljit Larson MD Results Not on fileafter 09/04/2017 Insurance Payer Benefit Subscriber ID Type Phone Address Plan / Group TEXAN[employer] TEXAN[employer]US xxxxxxxxx Maps HMO ALL Contracted Advance Directives For more information, please contact: [phone] [place] [address] Date Inactivated Comments Code Status Date [...]
--- OUTSIDE RECORDS SUMMARY | 2018-09-05 22:42 | XMS REPORT | Continuity of Care Document ---
Author Author [employer] Organization [employer] Address Unknown Phone Unavailable Care Team Providers Care Security Field Supervisor Name Role Phone [employer] Information [employer] Unavailable Unavailable Problems Problem Status Onset Date Classification Date Reported Comments Source A41.9 SEPSIS, UNSPECIFIED ORGANISM 06/17/2018 Diagnosis 06/22/2018 SNF: [facility] M86.10 OTHER ACUTE OSTEOMYELITIS, UNSPECIFIED SITE 06/17/2018 Diagnosis 06/22/2018 SNF: [facility] J44.9 CHRONIC OBSTRUCTIVE PULMONARY DISEASE, UNSPECIFIED 06/17/2018 Diagnosis 06/22/2018 SNF: [facility] Type II diabetes mellitus uncontrolled 03/28/2018 Diagnosis 06/22/2018 SNF: [facility] E11.40 TYPE 2 DIABETES MELLITUS WITH DIABETIC NEUROPATHY, UNSPECIFIED 03/27/2018 Diagnosis 06/22/2018 SNF: [facility] L89.620 PRESSURE ULCER OF LEFT HEEL, UNSTAGEABLE 03/23/2018 Diagnosis 06/22/2018 SNF: [facility] J91.8 PLEURAL EFFUSION IN OTHER CONDITIONS CLASSIFIED ELSEWHERE 03/09/2018 Diagnosis 06/22/2018 SNF: [facility] F32.9 MAJOR DEPRESSIVE DISORDER, SINGLE EPISODE, UNSPECIFIED 03/09/2018 Diagnosis 06/22/2018 SNF: [facility] I73.9 PERIPHERAL VASCULAR DISEASE, UNSPECIFIED 03/09/2018 Diagnosis 06/22/2018 SNF: [facility] I48.91 UNSPECIFIED ATRIAL FIBRILLATION 03/09/2018 Diagnosis 06/22/2018 SNF: [facility] I50.9 HEART FAILURE, UNSPECIFIED 03/09/2018 Diagnosis 06/22/2018 SNF: [facility] S91.301A UNSPECIFIED OPEN WOUND, RIGHT FOOT, INITIAL ENCOUNTER 03/09/2018 Diagnosis 06/22/2018 SNF: [facility] Z94.0 KIDNEY TRANSPLANT STATUS 03/09/2018 Diagnosis 06/22/2018 SNF: [facility] Z91.81 HISTORY OF FALLING 03/09/2018 Diagnosis 06/22/2018 SNF: [facility] S29.9XXA UNSPECIFIED INJURY OF THORAX, INITIAL ENCOUNTER 03/09/2018 Diagnosis 06/22/2018 SNF: [facility] L03.119 CELLULITIS OF UNSPECIFIED PART OF LIMB 03/09/2018 Diagnosis 06/22/2018 SNF: [facility] N28.9 DISORDER OF KIDNEY AND URETER, UNSPECIFIED 03/09/2018 Diagnosis 06/22/2018 SNF: [facility] Atrial fibrillation Active Problem 07/09/2018 [facility] Blunt chest trauma Active Problem 07/09/2018 [facility] CHF Active Problem 07/09/2018 [facility] Chest pain Active Problem 07/09/2018 [facility] Chronic renal insufficiency Active Problem 07/09/2018 [facility] Cystitis Active Problem 07/09/2018 [facility] Diabetic foot ulcers Active Problem 07/09/2018 [facility] Dyspnea Active Problem 07/09/2018 [facility] HCAP Active Problem 07/09/2018 [facility] Hypertension Active Problem 07/09/2018 [facility] 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 [facility] Palpitations Active Problem 07/09/2018 [facility] Renal insufficiency Active Problem 07/09/2018 [facility] TIA Active Problem 07/09/2018 [facility] UTI Active Problem 07/09/2018 [facility] Renal transplant recipient Active Problem 07/09/2018 [facility] Renal transplant, status post Active Problem 07/09/2018 [facility] Medications Medication Details Route Status Patient Instructions Ordering Provider Order Date Source Amoxicillin/Potassium Clav (Amox Tr-K Clv 500-125 Mg Tab) 1 Each Tablet, Active 07/08/2018 [facility] Furosemide 40 Mg Tablet, 40 Mg Oral Daily Active 07/08/2018 [facility] Glipizide 10 Mg Tablet, 10 Mg Oral Twice A Day Active 07/08/2018 [facility] Bactroban Ointment 2 % 1 APPLICATION TOPICALLY DAILY External Active 06/21/2018 SNF: [facility] Calcitriol Capsule 0.5 MCG 1 CAP(S) BY MOUTH DAILY ON FRI/FRI/FRI Oral Active 06/19/2018 SNF: [facility] Folic Acid Tablet 1 MG Give 1 tablet by mouth one time a day for Supplement Oral Active 06/18/2018 SNF: [facility] Vitamin B12 Tablet Extended Release 1000 MCG Give 1 tablet by mouth one time a day for Supplement Oral Active 06/18/2018 [facility] Brimonidine Tartrate Solution 0.1 % 1 DROP(S) IN EACH EYE DAILY Ophthalmic Active 06/18/2018 SNF: [facility] Sodium Bicarbonate Tablet 650 MG Give 2 tablet by mouth three times a day related to KIDNEY TRANSPLANT STATUS (Z94.0) Oral Active 06/18/2018 SNF: [facility] Lasix Tablet 40 MG 1 TAB(S) BY MOUTH DAILY Oral Active 06/18/2018 SNF: [facility] guaiFENesin Syrup 100 MG/5ML Give 30 ml by mouth two times a day for Cough/Congestion [id number] Oral Active 06/18/2018 SNF: [facility] Magnesium Oxide Tablet 400 MG Give 1 tablet by mouth one time a day for Supplement Oral Active 06/18/2018 SNF: [facility] oxyCODONE HCl Tablet 5 MG Give 1 tablet by mouth every 4 hours as needed for pain DC [place] once Oxycodone arrives Oral Active 06/18/2018 SNF: [facility] Tresiba Solution 100 UNIT/ML Inject 20 unit subcutaneously one time a day for DMII Subcutaneous Active 06/18/2018 [facility] Collagenase Ointment 250 UNIT/GM Apply to Right foot topically every day shift for Wound Care External Active 06/18/2018 SNF: [facility] Protonix Tablet Delayed Release 40 MG 1 TAB(S) BY MOUTH 2 TIMES A DAY Oral Active 06/18/2018 SNF: [facility] NIFEdipine ER Tablet Extended Release 24 Hour 30 MG Give 1 tablet by mouth every 12 hours for HTN Hold for SBP<110, HR<60 Oral Active 06/18/2018 SNF: [facility] Tacrolimus Capsule 1 MG 2 CAP(S) BY MOUTH EVERY 12 HOURS (2CAPS=2MG) Oral Active 06/18/2018 SNF: [facility] Latanoprost Solution 0.005 % 1 DROP(S) IN EACH EYE AT BEDTIME Ophthalmic Active 06/18/2018 SNF: [facility] Insulin Lispro Solution 100 UNIT/ML Inject as per sliding scale: if 121 - 150=2 units; 151 - 200=4 units; 201 - 250=6 units; 251 - 300=8 units; 301 - 350=10 units; 351 - 400=12 units; 401 - 999=14 units Call MD, subcutaneously before meals and at bedtime for DMII Subcutaneous Active 06/18/2018 SNF: [facility] [place] Tablet 10-325 MG Give 1 tablet by mouth every 4 hours as needed for Pain D/C when Percocet arrives Oral Active 06/17/2018 SNF: [facility] hydrALAZINE HCl Tablet 25 MG 1 TAB(S) BY MOUTH EVERY 4 HOURS NEEDED FOR SBP >180; DBP >90 Oral Active 06/17/2018 SNF: [facility] diphenhydrAMINE HCl Tablet 25 MG Give 1 tablet by mouth as needed for Itching Bedtime Oral Active 06/17/2018 SNF: [facility] oxyCODONE-Acetaminophen Tablet 5-325 MG Give 1 tablet by mouth every 4 hours as needed for Pain Oral Active 06/17/2018 SNF: [facility] Zofran Tablet 4 MG 1 TAB(S) BY MOUTH EVERY 4 HOURS NEEDED Oral Active 06/17/2018 SNF: [facility] Benzonatate Capsule 100 MG 1 CAP(S) BY MOUTH EVERY 6 HOURS NEEDED Oral Active 06/17/2018 SNF: [facility] Glipizide 5 Mg Tablet, 10 Mg Oral Twice Daily With Meals Active 05/24/2018 [facility] Ciprofloxacin Hcl (Cipro) 250 Mg Tablet, 250 Mg Oral Every 12 Hours Active 05/23/2018 [facility] Glipizide (Glucotrol) 10 Mg Tablet, 10 Mg Oral Twice A Day Active 05/23/2018 [facility] Allopurinol 300 Mg Tablet, 300 Mg Oral Daily Active 05/03/2018 [facility] Amoxicillin/Potassium Clav (Augmentin 500-125 Tablet) 1 Each Tablet, 500 Mg Oral Twice A Day Active 05/03/2018 [facility] Santyl Ointment 250 UNIT/GM Apply to right plantar foot ulcer topically every day shift for wound healing cleanse right plantar foot with ns or wc, appply santyl with nugauze packing and cover daily External Active 04/09/2018 SNF: [facility] Santyl Ointment 250 UNIT/GM Apply to right plantar foot ulcer topically every day shift for wound healing cleanse right plantar foot with ns or wc, appply santyl with nugauze packing and cover daily External Inactive 04/09/2018 SNF: [facility] Lidocaine Patch 5 % 1 PATCH(ES) TOPICALLY DAILY - REMOVE IN 12-HOURS (REMOVE OLD PATCH BEFORE APPLYING A NEW ONE) LOCATION : LEFT SHOULDER External Active 04/07/2018 SNF: [facility] Lidocaine Patch 5 % 1 PATCH(ES) TOPICALLY DAILY - REMOVE IN 12-HOURS (REMOVE OLD PATCH BEFORE APPLYING A NEW ONE) LOCATION : LEFT SHOULDER External Active 04/07/2018 SNF: [facility] Probiotic Capsule Give 1 capsule by mouth one time a day for Supplement. for 7 Days Oral Active 04/03/2018 SNF: [facility] Probiotic Capsule Give 1 capsule by mouth one time a day for Supplement. for 7 Days Oral Active 04/03/2018 SNF: [facility] HydrOXYzine HCl Tablet 25 MG 0.5 TAB(S) BY MOUTH DAILY NEEDED (0.5T=12.5MG) Oral Active 04/03/2018 SNF: [facility] HydrOXYzine HCl Tablet 25 MG 0.5 TAB(S) BY MOUTH DAILY NEEDED (0.5T=12.5MG) Oral Active 04/03/2018 SNF: [facility] HydrOXYzine HCl Solution 25 MG/ML Inject 0.5 tablet intramuscularly every 6 hours as needed for Itching Give half tab. Intramuscular Inactive 04/02/2018 SNF: [facility] HydrOXYzine HCl Solution 25 MG/ML Inject 0.5 tablet intramuscularly every 6 hours as needed for Itching Give half tab. Intramuscular Inactive 04/02/2018 SNF: [facility] Ondansetron HCl Tablet 4 MG 1 TAB(S) BY MOUTH EVERY 6 HOURS NEEDED FOR N/V Oral Active 04/02/2018 SNF: [facility] Ondansetron HCl Tablet 4 MG 1 TAB(S) BY MOUTH EVERY 6 HOURS NEEDED FOR N/V Oral Active 04/01/2018 SNF: [facility] OxyCODONE HCl Tablet Abuse-Deterrent 7.5 MG 0.5 TAB(S) BY MOUTH EVERY 4 HOURS NEEDED (0.5TAB=2.5MG) Oral Active 03/31/2018 SNF: [facility] OxyCODONE HCl Tablet Abuse-Deterrent 7.5 MG 0.5 TAB(S) BY MOUTH EVERY 4 HOURS NEEDED (0.5TAB=2.5MG) Oral Active 03/31/2018 SNF: [facility] Coumadin Tablet 2 MG 1 TAB(S) BY MOUTH DAILY ON FRI/FRI/FRI RELATED TO HEART FAILURE, UNSPECIFIED (I50.9) Oral Active 03/30/2018 SNF: [facility] Coumadin Tablet 2 MG 1 TAB(S) BY MOUTH DAILY ON FRI/FRI/FRI RELATED TO HEART FAILURE, UNSPECIFIED (I50.9) Oral Active 03/30/2018 SNF: [facility] Roxicodone Tablet 5 MG Give 1 tablet by mouth every 4 hours as needed for Pain Oral Inactive 03/30/2018 SNF: [facility] Roxicodone Tablet 5 MG Give 1 tablet by mouth every 4 hours as needed for Pain Oral Inactive 03/30/2018 SNF: [facility] Santyl Ointment 250 UNIT/GM Apply to Right planter foot topically every day shift for Wound Healing External Active 03/29/2018 SNF: [facility] Santyl Ointment 250 UNIT/GM Apply to Right planter foot topically every day shift for Wound Healing External Active 03/29/2018 SNF: [facility] Levemir FlexPen Solution Pen-injector 100 UNIT/ML Inject 10 unit subcutaneously at bedtime for ANTIDIABETICS Subcutaneous Active 03/29/2018 SNF: [facility] Levemir FlexPen Solution Pen-injector 100 UNIT/ML Inject 10 unit subcutaneously at bedtime for ANTIDIABETICS Subcutaneous Active 03/29/2018 SNF: [facility] Coumadin Tablet 1 MG 1 TAB(S) BY MOUTH EVERY EVENING EVERY TUE, SAGAR, SAT, SUN RELATED TO UNSPECIFIED ATRIAL FIBRILLATION (I48.91) Oral Active 03/28/2018 SNF: [facility] Coumadin Tablet 1 MG 1 TAB(S) BY MOUTH EVERY EVENING EVERY TUE, SAGAR, SAT, SUN RELATED TO UNSPECIFIED ATRIAL FIBRILLATION (I48.91) Oral Active 03/28/2018 SNF: [facility] HumaLOG Solution 100 UNIT/ML Inject 5 unit subcutaneously before meals related to TYPE 2 DIABETES MELLITUS WITH HYPERGLYCEMIA (E11.65) AND Inject as per sliding scale: if 150 - 200=3; 201 - 250=6; 251 - 300=9; 301 - 350=12; 351+ Call MD, subcutaneously before meals and at bedtime related to TYPE 2 DIABETES MELLITUS WITH HYPERGLYCEMIA (E11.65) Subcutaneous Inactive 03/28/2018 SNF: [facility] HumuLIN R Solution 100 UNIT/ML Inject 5 unit subcutaneously before meals related to TYPE 2 DIABETES MELLITUS WITH HYPERGLYCEMIA (E11.65) AND Inject as per sliding scale: if 150 - 200=3; 201 - 250=6; 251 - 300=9; 301 - 350=12; 351+ Call MD, subcutaneously before meals and at bedtime related to TYPE 2 DIABETES MELLITUS WITH HYPERGLYCEMIA (E11.65) Injection Active 03/28/2018 SNF: [facility] HumaLOG Solution 100 UNIT/ML Inject 5 unit subcutaneously before meals related to TYPE 2 DIABETES MELLITUS WITH HYPERGLYCEMIA (E11.65) AND Inject as per sliding scale: if 150 - 200=3; 201 - 250=6; 251 - 300=9; 301 - 350=12; 351+ Call MD, subcutaneously before meals and at bedtime related to TYPE 2 DIABETES MELLITUS WITH HYPERGLYCEMIA (E11.65) Subcutaneous Inactive 03/28/2018 SNF: [facility] HumuLIN R Solution 100 UNIT/ML Inject 5 unit subcutaneously before meals related to TYPE 2 DIABETES MELLITUS WITH HYPERGLYCEMIA (E11.65) AND Inject as per sliding scale: if 150 - 200=3; 201 - 250=6; 251 - 300=9; 301 - 350=12; 351+ Call MD, subcutaneously before meals and at bedtime related to TYPE 2 DIABETES MELLITUS WITH HYPERGLYCEMIA (E11.65) Injection Active 03/28/2018 SNF: [facility] Ampicillin Capsule 500 MG 1 CAP(S) BY MOUTH EVERY 8 HOURS FOR 10 DAYS Oral Active 03/28/2018 SNF: [facility] Aztreonam in Dextrose Solution 1 GM/50ML Use 0.5 gram intravenously every 12 hours related to CELLULITIS OF UNSPECIFIED PART OF LIMB (L03.119) for 10 Days @ 100 mL/H Intravenous Active 03/28/2018 SNF: [facility] Prograf Capsule 1 MG 2 CAP(S) BY MOUTH 2 TIMES A DAY (2CAPS=2MG) RELATED TO KIDNEY TRANSPLANT STATUS (Z94.0) Oral Active 03/28/2018 SNF: [facility] Calcitriol Capsule 0.5 MCG 1 CAP(S) BY MOUTH DAILY ON MON/WED/FRI Oral Active 03/28/2018 SNF: [facility] Ferrous Sulfate Tablet 325 (65 Fe) MG Give 1 tablet by mouth one time a day for supplementation Oral Active 03/28/2018 SNF: [facility] Furosemide Tablet 40 MG 1 TAB(S) BY MOUTH EVERY 12 HOURS Oral Active 03/28/2018 SNF: [facility] PredniSONE Tablet 5 MG Give 1 tablet by mouth one time a day for CORTICOSTEROIDS Oral Active 03/28/2018 SNF: [facility] Loratadine Tablet 10 MG Give 1 tablet by mouth one time a day for Allergy Symptoms Oral Active 03/28/2018 SNF: [facility] Potassium Tablet Give 40 mEq by mouth one time a day for supplement Oral Active 03/28/2018 SNF: [facility] HydrALAZINE HCl Tablet 50 MG Give 1 tablet by mouth three times a day related to HEART FAILURE, UNSPECIFIED (I50.9) Hold for SBP <130 Oral Active 03/28/2018 SNF: [facility] Ampicillin Capsule 500 MG 1 CAP(S) BY MOUTH EVERY 8 HOURS FOR 10 DAYS Oral Active 03/28/2018 SNF: [facility] Aztreonam in Dextrose Solution 1 GM/50ML Use 0.5 gram intravenously every 12 hours related to CELLULITIS OF UNSPECIFIED PART OF LIMB (L03.119) for 10 Days @ 100 mL/H Intravenous Active 03/28/2018 SNF: [facility] Calcitriol Capsule 0.5 MCG 1 CAP(S) BY MOUTH DAILY ON FRI/FRI/FRI Oral Active 03/28/2018 SNF: [facility] Prograf Capsule 1 MG 2 CAP(S) BY MOUTH 2 TIMES A DAY (2CAPS=2MG) RELATED TO KIDNEY TRANSPLANT STATUS (Z94.0) Oral Active 03/28/2018 SNF: [facility] Ferrous Sulfate Tablet 325 (65 Fe) MG Give 1 tablet by mouth one time a day for supplementation Oral Active 03/28/2018 SNF: [facility] Furosemide Tablet 40 MG 1 TAB(S) BY MOUTH EVERY 12 HOURS Oral Active 03/28/2018 SNF: [facility] PredniSONE Tablet 5 MG Give 1 tablet by mouth one time a day for CORTICOSTEROIDS Oral Active 03/28/2018 SNF: [facility] Loratadine Tablet 10 MG Give 1 tablet by mouth one time a day for Allergy Symptoms Oral Active 03/28/2018 SNF: [facility] Potassium Tablet Give 40 mEq by mouth one time a day for supplement Oral Active 03/28/2018 SNF: [facility] HydrALAZINE HCl Tablet 50 MG Give 1 tablet by mouth three times a day related to HEART FAILURE, UNSPECIFIED (I50.9) Hold for SBP <130 Oral Active 03/28/2018 SNF: [facility] Tylenol Tablet 325 MG Give 2 tablet by mouth one time only for PAIN for 1 Day Per Randi Lewis Oncall Oral Active 03/28/2018 SNF: [facility] Tylenol Tablet 325 MG Give 2 tablet by mouth one time only for PAIN for 1 Day Per Randi Lewis Oncall Oral Active 03/28/2018 SNF: [facility] Oxycodone-Acetaminophen Tablet 5-325 MG Give 1 tablet by mouth every 4 hours as needed for PAIN *For Percocet 10-325:Give 1 Percocet 5- 325+ Oxycodone 5mg* Oral Active 03/28/2018 SNF: [facility] HydrOXYzine HCl Tablet 25 MG 0.5 TAB(S) BY MOUTH DAILY NEEDED (0.5T=12.5MG) Oral Active 03/28/2018 SNF: [facility] Tuberculin PPD Solution Inject 0.1 ml intradermally one time only for Prophylaxis for 1 Day Adm within first 24 hours of admission. Repeat yearly. Intradermal Active 03/28/2018 SNF: [facility] Oxycodone-Acetaminophen Tablet 5-325 MG Give 1 tablet by mouth every 4 hours as needed for PAIN *For Percocet 10-325:Give 1 Percocet 5- 325+ Oxycodone 5mg* Oral Active 03/28/2018 SNF: [facility] HydrOXYzine HCl Tablet 25 MG 0.5 TAB(S) BY MOUTH DAILY NEEDED (0.5T=12.5MG) Oral Active 03/28/2018 SNF: [facility] Tuberculin PPD Solution Inject 0.1 ml intradermally one time only for Prophylaxis for 1 Day Adm within first 24 hours of admission. Repeat yearly. Intradermal Active 03/28/2018 SNF: [facility] Roxicodone Tablet 5 MG Give 1 tablet by mouth every 4 hours as needed for Pain Give with Percocet 5-325mg to equal Percocet 10-325mg Oral Active 03/27/2018 SNF: [facility] Roxicodone Tablet 5 MG Give 1 tablet by mouth every 4 hours as needed for Pain Give with Percocet 5-325mg to equal Percocet 10-325mg Oral Active 03/27/2018 SNF: [facility] Alprazolam 0.5 Mg Tablet, 0.5 Mg Oral Daily Active 03/20/2018 [facility] Gabapentin 300 Mg Capsule, 300 Mg Oral Twice A Day Active 03/20/2018 [facility] Hydralazine Hcl 25 Mg Tab, 50 Mg Oral Every 6 Hours as needed for >Sl=609 Active 03/20/2018 [facility] Insulin Lisp Protam/Lisp Human (Humalog Mix 75-25 Vial) 100 Units/Ml Ml, Subcutaneously Before Meals And At Bedtime Active 03/20/2018 [facility] Metoclopramide Hcl (Reglan) 5 Mg Tablet, 5 Mg Oral Before Meals And At Bedtime Active 03/20/2018 [facility] Metoprolol Succinate 25 Mg Tab.er.24h, 25 Mg Oral Twice A Day as needed for High Blood Pressure Active 03/20/2018 [facility] Tacrolimus 1 Mg Capsule, 1 Mg Oral Twice A Day Active 03/20/2018 [facility] Torsemide 20 Mg Tablet, Active 03/20/2018 [facility] Warfarin Sodium 2 Mg Tablet, 2 Mg Oral Daily Active 03/20/2018 [facility] Tuberculin PPD Solution Inject 0.1 ml intradermally one time only for Prophylaxis for 1 Day Adm within first 24 hours of admission. Repeat yearly. Intradermal Active 03/14/2018 SNF: [facility] Hydralazine Hcl 25 Mg Tab, 100 Mg Oral Three Times A Day Active 03/14/2018 [facility] Hydralazine Hcl 25 Mg Tab, 50 Mg Oral Three Times A Day Active [facility] 03/13/2018 [facility] Insulin Detemir 100 Unit/Ml Pen, 13 Unit Sub-Q Bedtime Active [facility] 03/13/2018 [facility] Metoprolol Succinate (Toprol Xl) 25 Mg Tab.er.24h, 25 Mg Oral Twice A Day Active [facility] 03/13/2018 [facility] Sodium Bicarbonate 650 Mg Tablet, 1300 Mg Oral Twice A Day Active [facility] 03/13/2018 [facility] Amiodarone Hcl 200 Mg Tablet, 200 Mg Oral Daily Active 01/05/2018 [facility] Metoprolol Tartrate 50 Mg Tablet, 50 Mg Oral Twice A Day Active 02/23/2017 [facility] Pioglitazone Hcl (Actos*) 15 Mg Tablet, 30 Mg Oral Daily Active 01/19/2017 [facility] Warfarin Sodium 1 Mg Tablet, 1 Mg Oral M,F Active 01/19/2017 [facility] Insulin Lisp Protam/Lisp Human (Humalog Mix 75-25 Vial) 100 Units/Ml Ml, 60 Unit Subcutaneously Daily At 1700 Active 01/14/2017 [facility] Labetalol Hcl 200 Mg Tablet, 200 Mg Oral Daily Active 01/14/2017 [facility] Cholecalciferol (Vitamin D3) (Vitamin D) 1,000 Unit Tablet, 2000 Unit Oral Daily Active 11/05/2016 [facility] Brimonidine Tartrate (Combigan Eye Drops) 5 Ml Drpette Daily Active [facility] Bumetanide 1 Mg Tablet Three Times A Day Active [facility] Calcitriol 0.25 Mcg Capsule .// Active TAKE ON MONDAYS, WEDNESDAYS, AND FRIDAYS [facility] Diphenhydramine Hcl (Benadryl) 25 Mg Capsule Bedtime as needed for Sleep Active [facility] Fe Fumarate/Fa/Mv, Min Comb#15 (Hemocyte Plus Capsule) 1 Each Capsule Twice A Day Active [facility] Ferrous Sulfate (Feosol) 325 Mg Tablet Daily Active [facility] Hydralazine Hcl 25 Mg Tab Three Times A Day Active [facility] Latanoprost 2.5 Ml Drops Bedtime Active [facility] Linezolid (Zyvox) 600 Mg Tablet Every 12 Hours Active [facility] Magnesium Oxide 400 Mg Tablet Daily Active [facility] Metoprolol Tartrate 50 Mg Tablet Twice A Day Active [facility] Oxycodone Hcl/Acetaminophen (Oxycodone-Acetaminophen 5-325) 1 Each Tablet Every 4 Hours as needed for Pain Active 1-2 tablets [facility] Potassium Chloride 20 Meq Tab.er.prt Three Times Daily With Meals Active [facility] Prednisone 5 Mg Tablet Daily Active [facility] Santyl Bedtime Active [facility] Tacrolimus (Prograf) 1 Mg Cap Twice A Day Active [facility] Tramadol Hcl (Ultram) 50 Mg Tablet Every 6 Hours Active [facility] Tresiba Daily Active [facility] Warfarin Sodium 1 Mg Tablet Daily Active [facility] Zinc Acetate/Meadowsweet/[place] (Amerigel Wound Dressing Gel) 28.3 Gm Gel..gram. Daily Active [facility] Allergies, Adverse Reactions, Alerts No Known Medication Allergies Immunizations Immunization Date Given Site Status Last Updated Comments Source tuberculin skin test; purified protein derivative solution, intradermal 03/28/2018 completed Sidra Caldwell SNF: [facility] tuberculin skin test; purified protein derivative solution, intradermal 03/28/2018 completed Sidra Caldwell SNF: [facility] pneumococcal polysaccharide vaccine, 23 valent 03/28/2018 Not Given SNF: [facility] Influenza, seasonal, injectable 01/08/2018 completed SNF: [facility] Results Order Name Results Value Reference Range Date Interpretation Comments Source Capillary blood glucose measurement by glucometer (mass/volume) 204 70 - 120 07/08/2018 [facility] Blood leukocytes automated count (number/volume) 8.76 4.8 - 10.8 07/07/2018 [facility] Blood erythrocytes automated count (number/volume) 3.41 4.3 - 5.7 07/07/2018 [facility] Blood hemoglobin measurement (moles/volume) 9.7 14.0 - 18.0 07/07/2018 [facility] Automated blood hematocrit (volume fraction) 30.7 38.2 - 49.6 07/07/2018 [facility] Automated erythrocyte mean corpuscular volume 90.0 81 - 99 07/07/2018 [facility] Automated erythrocyte mean corpuscular hemoglobin (mass per erythrocyte) 28.4 28 - 32 07/07/2018 [facility] Automated erythrocyte mean corpuscular hemoglobin concentration measurement (mass/volume) 31.6 31 - 35 07/07/2018 [facility] RDW BldCo-Rto 18.1 11.7 - 14.4 07/07/2018 [facility] Automated blood platelet count (count/volume) 269 140 - 360 07/07/2018 [facility] Automated blood segmented neutrophil count as percentage of total leukocytes 79.5 38.7 - 80.0 07/07/2018 [facility] Automated blood lymphocyte count as percentage ot total leukocytes 11.3 18.0 - 39.1 07/07/2018 [facility] Automated blood monocyte count as percentage of total leukocytes 7.4 4.4 - 11.3 07/07/2018 [facility] Automated blood eosinophil count as percentage of total leukocytes 0.5 0.0 - 6.0 07/07/2018 [facility] Automated blood basophil count as percentage of total leukocytes 0.2 0.0 - 1.0 07/07/2018 [facility] IM GRANULOCYTES % 1.1 0.0 - 1.0 07/07/2018 [facility] Automated blood neutrophil count 7.0 2.1 - 6.9 07/07/2018 [facility] Blood lymphocytes count (number/volume) 1.0 1.0 - 3.2 07/07/2018 [facility] Blood monocytes automated count (number/volume) 0.7 0.2 - 0.8 07/07/2018 [facility] Automated blood eosinophil count 0.0 0.0 - 0.4 07/07/2018 [facility] Automated blood basophil count (count/volume) 0.0 0.0 - 0.1 07/07/2018 [facility] Absolute Immature Granulocyte (auto 0.10 0 - 0.1 07/07/2018 [facility] Serum or plasma sodium measurement (moles/volume) 136 136 - 145 07/07/2018 [facility] Serum or plasma potassium measurement (moles/volume) 3.2 3.5 - 5.1 07/07/2018 [facility] Serum or plasma chloride measurement (moles/volume) 95 98 - 107 07/07/2018 [facility] Serum or plasma carbon dioxide, total measurement (moles/volume) 31 22 - 29 07/07/2018 [facility] Serum or plasma anion gap 13.2 8 - 16 07/07/2018 [facility] Serum or plasma urea nitrogen measurement (mass/volume) 63 7 - 26 07/07/2018 [facility] Serum or plasma creatinine measurement (mass/volume) 2.13 0.72 - 1.25 07/07/2018 [facility] Serum or plasma urea nitrogen/creatinine mass ratio 30 6 - 25 07/07/2018 [facility] Estimated glomerular filtration rate (GFR) determination 32 60 07/07/2018 [facility] Glucose measurement 76 74 - 118 07/07/2018 [facility] Serum or plasma calcium measurement (mass/volume) 8.7 8.4 - 10.2 07/07/2018 [facility] Prothrombin time (PT) in platelet poor plasma by coagulation assay 33.5 11.9 - 14.5 07/05/2018 [facility] INR in Platelet poor plasma by Coagulation assay 3.20 07/05/2018 [facility] Serum or plasma total bilirubin measurement (mass/volume) 0.4 0.2 - 1.2 07/05/2018 [facility] Aspartate Amino Transf (AST/SGOT) 25 5 - 34 07/05/2018 [facility] Serum or plasma alanine aminotransferase measurement (enzymatic activity/volume) 18 0 - 55 07/05/2018 [facility] Serum or plasma protein measurement (mass/volume) 5.3 6.5 - 8.1 07/05/2018 [facility] Serum or plasma albumin measurement (mass/volume) 1.5 3.5 - 5.0 07/05/2018 [facility] Plasma globulin measurement (mass/volume) 3.8 2.3 - 3.5 07/05/2018 [facility] Serum or plasma albumin/globulin mass ratio 0.4 0.8 - 2.0 07/05/2018 [facility] Serum or plasma alkaline phosphatase measurement (enzymatic activity/volume) 140 40 - 150 07/05/2018 [facility] Activated partial thromboplastin time (aPTT) in platelet poor plasma bycoagulation assay 43.4 23.8 - 35.5 06/29/2018 [facility] Differential Total Cells Counted 100 06/29/2018 [facility] Manual blood neutrophils/100 leukocytes 85 40 - 74 06/29/2018 [facility] Manual blood lymphocytes/100 leukocytes 8 19 - 48 06/29/2018 [facility] Manual blood monocytes/100 leukocytes 7 3.4 - 9.0 06/29/2018 [facility] Blood platelets count by estimate (number/volume) ADEQUATE 06/29/2018 [facility] Platelet morphology NORMAL 06/29/2018 [facility] Blood anisocytosis detection by light microscopy SLIGHT 06/29/2018 [facility] RBC morphology NORMAL 06/29/2018 [facility] Specimen source identification of body fluid PLEURAL 06/25/2018 [facility] Evaluation of color of body fluid YELLOW 06/25/2018 [facility] Determination of appearance of body fluid SL.CLOUDY 06/25/2018 [facility] Manual body fluid leukocytes count (number/volume) 158 06/25/2018 [facility] Manual body fluid erythrocytes count (number/volume) 42 06/25/2018 [facility] Manual body fluid neutrophils/100 leukocytes 78 06/25/2018 [facility] Body fluid lymphocyte count 2 06/25/2018 [facility] Body fluid monocyte count 3 06/25/2018 [facility] Body fluid other cells manual count 17 06/25/2018 [facility] Total cell count 100 06/25/2018 [facility] Body fluid protein measurement (mass/volume) 0.9 06/25/2018 [facility] Body fluid lactate dehydrogenase measurement (enzymatic activity/volume) 72 06/25/2018 [facility] Serum or plasma iron measurement (mass/volume) 13 65 - 175 06/24/2018 [facility] Serum or plasma transferrin measurement (mass/volume) < 70 174 - 364 06/24/2018 [facility] Serum or plasma ferritin measurement (mass/volume) 1897.52 21.81 - 274.66 06/24/2018 [facility] BNP Bld-mCnc 1388.0 0 - 100 06/24/2018 [facility] Blood culture NO GROWTH AFTER 5 DAYS, FINAL REPORT 06/23/2018 [facility] Stool gastrointestinal hemoglobin detection NEGATIVE NEGATIVE 06/23/2018 [facility] Urine color determination YELLOW YELLOW 06/22/2018 [facility] Urine clarity HAZY CLEAR 06/22/2018 [facility] Specific gravity of Urine by Test strip 1.015 1.010 - 1.025 06/22/2018 [facility] Urine pH measurement by automated test strip 6 5 - 7 06/22/2018 [facility] Urine leukocyte esterase detection by dipstick 1+ NEGATIVE 06/22/2018 [facility] Urine nitrite detection NEGATIVE NEGATIVE 06/22/2018 [facility] Urine protein measurement by test strip (mass/volume) NEGATIVE NEGATIVE 06/22/2018 [facility] Urine glucose detection NEGATIVE NEGATIVE 06/22/2018 [facility] Urine ketones detection by automated test strip NEGATIVE NEGATIVE 06/22/2018 [facility] Urine urobilinogen measurement by test strip (mass/volume) 0.2 0.2 - 1 06/22/2018 [facility] Urine total bilirubin measurement (mass/volume) NEGATIVE NEGATIVE 06/22/2018 [facility] Urine erythrocytes detection TRACE NEGATIVE 06/22/2018 [facility] Automated urine sediment leukocyte count by microscopy (number/high power field) >50 0 - 5 06/22/2018 [facility] Erythrocytes detection in urine sediment by light microscopy 11-20 0 - 5 06/22/2018 [facility] Bacteria detection in urine sediment by light microscopy MANY NONE 06/22/2018 [facility] Epithelial cells detection in urine sediment by light microscopy MANY NONE 06/22/2018 [facility] Yeast detection in urine sediment by light microscopy MANY NONE 06/22/2018 [facility] Serum or plasma creatine kinase measurement (enzymatic activity/volume) 9 30 - 200 06/22/2018 [facility] Serum or plasma creatine kinase MB measurement (mass/volume) 0.50 0 - 5.0 06/22/2018 [facility] Troponin I measurement by highly sensitive enzyme immunoassay 0.052 0 - 0.300 06/22/2018 [facility] Blood sugar Blood sugar 162 06/22/2018 SNF: [facility] Blood sugar Blood sugar 183 06/22/2018 SNF: [facility] Blood sugar Blood sugar 183 06/22/2018 SNF: [facility] Blood sugar Blood sugar 188 06/22/2018 SNF: [facility] Blood sugar Blood sugar 178 06/21/2018 SNF: [facility] Blood sugar Blood sugar 162 06/21/2018 SNF: [facility] Blood sugar Blood sugar 165 06/21/2018 SNF: [facility] Blood sugar Blood sugar 165 06/21/2018 SNF: [facility] Blood sugar Blood sugar 200 06/21/2018 SNF: [facility] Blood sugar Blood sugar 146 06/20/2018 SNF: [facility] Blood sugar Blood sugar 146 06/20/2018 SNF: [facility] Blood sugar Blood sugar 164 06/20/2018 SNF: [facility] Blood sugar Blood sugar 188 06/20/2018 SNF: [facility] Blood sugar Blood sugar 213 06/19/2018 SNF: [facility] Blood sugar Blood sugar 244 06/19/2018 SNF: [facility] Blood sugar Blood sugar 246 06/19/2018 SNF: [facility] Blood sugar Blood sugar 246 06/19/2018 SNF: [facility] Blood sugar Blood sugar 287 06/19/2018 SNF: [facility] Blood sugar Blood sugar 311 06/18/2018 SNF: [facility] Blood sugar Blood sugar 373 06/18/2018 SNF: [facility] Procalcitonin (PCT) level 0.35 0.00 - 0.08 06/17/2018 [facility] Serum or plasma cortisol measurement on morning peak specimen (mass/volume) 19.7 6.2 - 19.4 06/17/2018 [facility] Manual blood band neutrophils form/100 leukocytes 3 06/14/2018 [facility] Serum or plasma magnesium measurement (mass/volume) 1.5 1.3 - 2.1 06/13/2018 [facility] Manual blood eosinophil count as percentage of total leukocytes 1 0 - 7 06/12/2018 [facility] Manual blood metamyelocytes/100 leukocytes 4 0 - 0 06/12/2018 [facility] Blood toxic granules detection by light microscopy MODERATE 06/12/2018 [facility] Blood dohle body detection by light microscopy FEW 06/12/2018 [facility] Albumin (PEP) 2.8 2.9 - 4.4 06/12/2018 [facility] Serum or plasma alpha 1 globulin measurement by electrophoresis (mass/volume) 0.2 0.0 - 0.4 06/12/2018 [facility] Serum or plasma alpha 2 globulin measurement by electrophoresis (mass/volume) 0.7 0.4 - 1.0 06/12/2018 [facility] Serum or plasma beta globulin measurement by electrophoresis (mass/volume) 0.5 0.7 - 1.3 06/12/2018 [facility] Serum or plasma gamma globulin measurement by electrophoresis (mass/volume) 0.7 0.4 - 1.8 06/12/2018 [facility] Serum or plasma protein measurement (mass/volume) 4.8 6.0 - 8.5 06/12/2018 [facility] Serum globulin measurement by calculation (mass/volume) 2.0 2.2 - 3.9 06/12/2018 [facility] Serum immunoglobulin kappa light chains measurement (mass/volume) 34.2 3.3 - 19.4 06/12/2018 [facility] Serum or plasma immunoglobulin free lambda light chains measurement (mass/volume) 21.3 5.7 - 26.3 06/12/2018 [facility] Serum immunoglobulin kappa light chains/immunoglobulin lambda light chains mass ratio 1.61 0.26 - 1.65 06/12/2018 [facility] Serum or plasma protein monoclonal measurement by electrophoresis (mass/volume) Not Observed Not Observed 06/12/2018 [facility] Serum or plasma albumin/globulin mass ratio 1.4 0.7 - 1.7 06/12/2018 [facility] Protein Electrophoresis Note Comment . 06/12/2018 [facility] Manual blood myelocytes/100 leukocytes 4 0 - 0 06/11/2018 [facility] Blood promyelocytes/100 leukocytes 1 0 - 0 06/11/2018 [facility] Blood lymphocytes variant count (number/volume) 1 06/11/2018 [facility] Blood hypochromia detection by light microscopy SLIGHT 06/11/2018 [facility] Serum or plasma iron binding capacity measurement (mass/volume) 112 261 - 478 06/10/2018 [facility] Serum or plasma iron saturation measurement (mass fraction) 74 15 - 50 06/10/2018 [facility] Blood poikilocytosis detection by light microscopy SLIGHT 06/09/2018 [facility] Lactic Acid Level 17.6 4.5 - 19.8 06/08/2018 [facility] Blood microcytes detection by light microscopy SLIGHT 06/08/2018 [facility] Blood ovalocytes detection by light microscopy FEW 06/08/2018 [facility] Serum or plasma homocysteine measurement (moles/volume) 9.6 0.0 - 15.0 06/07/2018 [facility] Serum or plasma methylmalonate measurement (moles/volume) 450 06/07/2018 [facility] Fibrin D-dimer DDU measurement in platelet poor plasma (mass/volume) 383 0 - 400 06/07/2018 [facility] Fibrinogen measurement in platelet poor plasma by coagulation assay (mass/volume) 215 204 - 462 06/07/2018 [facility] Fibrin+fibrinogen fragments measurement (units/volume) in platelet poor plasma by latex agglutination <5 <5 06/07/2018 [facility] Clostridium difficile A and B toxin assay NEGATIVE NEGATIVE 06/06/2018 [facility] Phosphorus measurement 3.1 2.3 - 4.7 06/06/2018 [facility] Serum or plasma lactate dehydrogenase measurement (enzymatic activity/volume) 200 125 - 220 06/06/2018 [facility] Elliptocyte detection SLIGHT 06/06/2018 [facility] Blood cobalamin (vitamin B12) measurement (mass/volume) 361 213 - 816 06/05/2018 [facility] Serum or plasma folate measurement (mass/volume) 5.1 7.0 - 15.4 06/05/2018 [facility] Serum or plasma thyrotropin measurement by detection limit <=0.005 miu/l (units/volume) 1.760 0.350 - 4.940 06/05/2018 [facility] Urine Legionella pneumophila 1 antigen detection by immunoassay Negative Negative 06/04/2018 [facility] Arterial blood pH measurement 7.37 7.31 - 7.41 06/04/2018 [facility] pCO2 BldA 28 41 - 51 06/04/2018 [facility] pCO2 BldA 67 80 - 105 06/04/2018 [facility] Arterial blood bicarbonate measurement (moles/volume) 16 23 - 28 06/04/2018 [facility] Arterial blood base excess by calculation -9.0 -2 - 3 - 2 06/04/2018 [facility] Arterial blood oxygen saturation measurement 93.0 95 - 98 06/04/2018 [facility] FiO2 21 06/04/2018 [facility] Transitional cells detection in urine sediment by light microscopy MANY NONE 06/02/2018 [facility] Influenza virus A and B antigen identification by immunofluorescence NEGATIVE NEGATIVE 06/02/2018 [facility] Ammonia Ser-mCnc 32 31 - 123 05/23/2018 [facility] Blood sugar Blood sugar 116 04/08/2018 SNF: [facility] Blood sugar Blood sugar 116 04/08/2018 SNF: [facility] Blood sugar Blood sugar 116 04/08/2018 SNF: [facility] Blood sugar Blood sugar 116 04/08/2018 SNF: [facility] Blood sugar Blood sugar 302 04/08/2018 SNF: [facility] Blood sugar Blood sugar 302 04/08/2018 SNF: [facility] Blood sugar Blood sugar 337 04/07/2018 SNF: [facility] Blood sugar Blood sugar 127 04/07/2018 SNF: [facility] Blood sugar Blood sugar 337 04/07/2018 SNF: [facility] Blood sugar Blood sugar 127 04/07/2018 SNF: [facility] Blood sugar Blood sugar 127 04/07/2018 SNF: [facility] Blood sugar Blood sugar 127 04/07/2018 SNF: [facility] Blood sugar Blood sugar 115 04/07/2018 SNF: [facility] Blood sugar Blood sugar 115 04/07/2018 SNF: [facility] Blood sugar Blood sugar 116 04/07/2018 SNF: [facility] Blood sugar Blood sugar 116 04/07/2018 SNF: [facility] Blood sugar Blood sugar 253 04/07/2018 SNF: [facility] Blood sugar Blood sugar 253 04/07/2018 SNF: [facility] Blood sugar Blood sugar 253 04/07/2018 SNF: [facility] Blood sugar Blood sugar 253 04/07/2018 SNF: [facility] Blood sugar Blood sugar 244 04/06/2018 SNF: [facility] Blood sugar Blood sugar 244 04/06/2018 SNF: [facility] Blood sugar Blood sugar 244 04/06/2018 SNF: [facility] Blood sugar Blood sugar 244 04/06/2018 SNF: [facility] Blood sugar Blood sugar 185 04/06/2018 SNF: [facility] Blood sugar Blood sugar 185 04/06/2018 SNF: [facility] Blood sugar Blood sugar 185 04/06/2018 SNF: [facility] Blood sugar Blood sugar 185 04/06/2018 SNF: [facility] Blood sugar Blood sugar 144 04/06/2018 SNF: [facility] Blood sugar Blood sugar 144 04/06/2018 SNF: [facility] Blood sugar Blood sugar 144 04/06/2018 SNF: [facility] Blood sugar Blood sugar 144 04/06/2018 SNF: [facility] Blood sugar Blood sugar 141 04/06/2018 SNF: [facility] Blood sugar Blood sugar 141 04/06/2018 SNF: [facility] Blood sugar Blood sugar 141 04/06/2018 SNF: [facility] Blood sugar Blood sugar 141 04/06/2018 SNF: [facility] Blood sugar Blood sugar 237 04/05/2018 SNF: [facility] Blood sugar Blood sugar 237 04/05/2018 SNF: [facility] Blood sugar Blood sugar 237 04/05/2018 SNF: [facility] Blood sugar Blood sugar 237 04/05/2018 SNF: [facility] Blood sugar Blood sugar 212 04/05/2018 SNF: [facility] Blood sugar Blood sugar 212 04/05/2018 SNF: [facility] Blood sugar Blood sugar 143 04/05/2018 SNF: [facility] Blood sugar Blood sugar 143 04/05/2018 SNF: [facility] Blood sugar Blood sugar 242 04/05/2018 SNF: [facility] Blood sugar Blood sugar 242 04/05/2018 SNF: [facility] Blood sugar Blood sugar 242 04/05/2018 SNF: [facility] Blood sugar Blood sugar 242 04/05/2018 SNF: [facility] Blood sugar Blood sugar 169 04/04/2018 SNF: [facility] Blood sugar Blood sugar 169 04/04/2018 SNF: [facility] Blood sugar Blood sugar 169 04/04/2018 SNF: [facility] Blood sugar Blood sugar 169 04/04/2018 SNF: [facility] Blood sugar Blood sugar 120 04/04/2018 SNF: [facility] Blood sugar Blood sugar 120 04/04/2018 SNF: [facility] Blood sugar Blood sugar 167 04/04/2018 SNF: [facility] Blood sugar Blood sugar 167 04/04/2018 SNF: [facility] Blood sugar Blood sugar 167 04/04/2018 SNF: [facility] Blood sugar Blood sugar 167 04/04/2018 SNF: [facility] Blood sugar Blood sugar 224 04/04/2018 SNF: [facility] Blood sugar Blood sugar 224 04/04/2018 SNF: [facility] Blood sugar Blood sugar 224 04/04/2018 SNF: [facility] Blood sugar Blood sugar 224 04/04/2018 SNF: [facility] Blood sugar Blood sugar 152 04/04/2018 SNF: [facility] Blood sugar Blood sugar 152 04/04/2018 SNF: [facility] Blood sugar Blood sugar 152 04/03/2018 SNF: [facility] Blood sugar Blood sugar 152 04/03/2018 SNF: [facility] Blood sugar Blood sugar 240 04/03/2018 SNF: [facility] Blood sugar Blood sugar 240 04/03/2018 SNF: [facility] Blood sugar Blood sugar 240 04/03/2018 SNF: [facility] Blood sugar Blood sugar 240 04/03/2018 SNF: [facility] Blood sugar Blood sugar 245 04/03/2018 SNF: [facility] Blood sugar Blood sugar 245 04/03/2018 SNF: [facility] Blood sugar Blood sugar 240 04/03/2018 SNF: [facility] Blood sugar Blood sugar 240 04/03/2018 SNF: [facility] Blood sugar Blood sugar 240 04/03/2018 SNF: [facility] Blood sugar Blood sugar 240 04/03/2018 SNF: [facility] Blood sugar Blood sugar 154 04/02/2018 SNF: [facility] Blood sugar Blood sugar 154 04/02/2018 SNF: [facility] Blood sugar Blood sugar 154 04/02/2018 SNF: [facility] Blood sugar Blood sugar 154 04/02/2018 SNF: [facility] Blood sugar Blood sugar 187 04/02/2018 SNF: [facility] Blood sugar Blood sugar 187 04/02/2018 SNF: [facility] Blood sugar Blood sugar 256 04/02/2018 SNF: [facility] Blood sugar Blood sugar 256 04/02/2018 SNF: [facility] Blood sugar Blood sugar 256 04/02/2018 SNF: [facility] Blood sugar Blood sugar 256 04/02/2018 SNF: [facility] Blood sugar Blood sugar 198 04/01/2018 SNF: [facility] Blood sugar Blood sugar 198 04/01/2018 SNF: [facility] Blood sugar Blood sugar 130 04/01/2018 SNF: [facility] Blood sugar Blood sugar 130 04/01/2018 SNF: [facility] Blood sugar Blood sugar 130 04/01/2018 SNF: [facility] Blood sugar Blood sugar 130 04/01/2018 SNF: [facility] Blood sugar Blood sugar 113 04/01/2018 SNF: [facility] Blood sugar Blood sugar 113 04/01/2018 SNF: [facility] Blood sugar Blood sugar 113 04/01/2018 SNF: [facility] Blood sugar Blood sugar 113 04/01/2018 SNF: [facility] Blood sugar Blood sugar 365 04/01/2018 SNF: [facility] Blood sugar Blood sugar 365 04/01/2018 SNF: [facility] Blood sugar Blood sugar 365 04/01/2018 SNF: [facility] Blood sugar Blood sugar 365 04/01/2018 SNF: [facility] Blood sugar Blood sugar 209 03/31/2018 SNF: [facility] Blood sugar Blood sugar 209 03/31/2018 SNF: [facility] Blood sugar Blood sugar 209 03/31/2018 SNF: [facility] Blood sugar Blood sugar 209 03/31/2018 SNF: [facility] Blood sugar Blood sugar 187 03/31/2018 SNF: [facility] Blood sugar Blood sugar 187 03/31/2018 SNF: [facility] Blood sugar Blood sugar 120 03/31/2018 SNF: [facility] Blood sugar Blood sugar 120 03/31/2018 SNF: [facility] Blood sugar Blood sugar 315 03/31/2018 SNF: [facility] Blood sugar Blood sugar 315 03/31/2018 SNF: [facility] Blood sugar Blood sugar 315 03/31/2018 SNF: [facility] Blood sugar Blood sugar 315 03/31/2018 SNF: [facility] Blood sugar Blood sugar 348 03/30/2018 SNF: [facility] Blood sugar Blood sugar 348 03/30/2018 SNF: [facility] Blood sugar Blood sugar 348 03/30/2018 SNF: [facility] Blood sugar Blood sugar 348 03/30/2018 SNF: [facility] Blood sugar Blood sugar 178 03/30/2018 SNF: [facility] Blood sugar Blood sugar 178 03/30/2018 SNF: [facility] Blood sugar Blood sugar 178 03/30/2018 SNF: [facility] Blood sugar Blood sugar 178 03/30/2018 SNF: [facility] Blood sugar Blood sugar 206 03/30/2018 SNF: [facility] Blood sugar Blood sugar 206 03/30/2018 SNF: [facility] Blood sugar Blood sugar 163 03/30/2018 SNF: [facility] Blood sugar Blood sugar 163 03/30/2018 SNF: [facility] Blood sugar Blood sugar 163 03/30/2018 SNF: [facility] Blood sugar Blood sugar 163 03/30/2018 SNF: [facility] Blood sugar Blood sugar 206 03/29/2018 SNF: [facility] Blood sugar Blood sugar 206 03/29/2018 SNF: [facility] Blood sugar Blood sugar 206 03/29/2018 SNF: [facility] Blood sugar Blood sugar 206 03/29/2018 SNF: [facility] Blood sugar Blood sugar 274 03/29/2018 SNF: [facility] Blood sugar Blood sugar 274 03/29/2018 SNF: [facility] Blood sugar Blood sugar 155 03/29/2018 SNF: [facility] Blood sugar Blood sugar 155 03/29/2018 SNF: [facility] Blood sugar Blood sugar 155 03/29/2018 SNF: [facility] Blood sugar Blood sugar 155 03/29/2018 SNF: [facility] Blood sugar Blood sugar 213 03/29/2018 SNF: [facility] Blood sugar Blood sugar 213 03/29/2018 SNF: [facility] Blood sugar Blood sugar 213 03/29/2018 SNF: [facility] Blood sugar Blood sugar 213 03/29/2018 SNF: [facility] Blood sugar Blood sugar 164 03/28/2018 SNF: [facility] Blood sugar Blood sugar 164 03/28/2018 SNF: [facility] Blood sugar Blood sugar 164 03/28/2018 SNF: [facility] Blood sugar Blood sugar 164 03/28/2018 SNF: [facility] Blood sugar Blood sugar 245 03/28/2018 SNF: [facility] Blood sugar Blood sugar 245 03/28/2018 SNF: [facility] Blood nucleated erythrocytes count (number/volume) 2 03/14/2018 [facility] Erythrocyte sedimentation rate by Westergren method 28 0 - 13 02/23/2018 [facility] Hemoglobin A1c Percent 8.1 4.0 - 7.0 02/23/2018 [facility] Serum or plasma triglyceride measurement (mass/volume) 135 0 - 149 02/23/2018 [facility] Serum or plasma cholesterol measurement (mass/volume) 153 0 - 199 02/23/2018 [facility] Serum or plasma cholesterol in LDL measurement (mass/volume) 84 60 - 130 02/23/2018 [facility] Serum or plasma cholesterol in HDL measurement (mass/volume) 42 40 - 60 02/23/2018 [facility] Serum or plasma total cholesterol/cholesterol in HDL mass ratio 3.6 3.9 - 4.7 02/23/2018 [facility] Bacteria identification in wound by culture Organism: PSEUDOMONAS AERUGINOSA 02/23/2018 [facility] Serum or plasma uric acid measurement (mass/volume) 10.6 4.8 - 8.0 01/05/2018 [facility] Bacterial urine culture Urine Culture [facility] Pathology Reports No Data Provided for This Section Diagnostic Reports No Data Provided for This Section Consultation Notes No Data Provided for This Section Discharge Summaries No Data Provided for This Section History and Physicals No Data Provided for This Section Vital Signs Vital Sign Value Date Comments Source Respitory Rate 17 06/22/2018 SNF: [facility] Systolic (mm Hg) 94 06/22/2018 SNF: [facility] Diastolic (mm Hg) 53 06/22/2018 SNF: [facility] Temperature Oral (F) 97.5 F 06/22/2018 SNF: [facility] Heart Rate 86 {beats}/min 06/22/2018 SNF: [facility] Systolic (mm Hg) 94 06/22/2018 SNF: [facility] Diastolic (mm Hg) 53 06/22/2018 SNF: [facility] Heart Rate 84 {beats}/min 06/22/2018 SNF: [facility] Respitory Rate 18 06/22/2018 SNF: [facility] Systolic (mm Hg) 135 06/22/2018 SNF: [facility] Diastolic (mm Hg) 73 06/22/2018 SNF: [facility] Temperature Oral (F) 97 F 06/22/2018 SNF: [facility] Heart Rate 68 {beats}/min 06/22/2018 SNF: [facility] Systolic (mm Hg) 135 06/22/2018 SN[facility]: [facility] Diastolic (mm Hg) 78 06/22/2018 SNF: [facility] Heart Rate 68 {beats}/min 06/22/2018 SNF: [facility] Systolic (mm Hg) 135 06/22/2018 [facility] Diastolic (mm Hg) 78 06/22/2018 SNF: [facility] Heart Rate 68 {beats}/min 06/22/2018 SNF: [facility] Respitory Rate 18 06/22/2018 SNF: [facility] Systolic (mm Hg) 139 06/22/2018 SNF: [facility] Diastolic (mm Hg) 76 06/22/2018 SNF: [facility] Temperature Oral (F) 97.7 F 06/22/2018 SNF: [facility] Heart Rate 75 {beats}/min 06/22/2018 SNF: [facility] Systolic (mm Hg) 132 06/21/2018 SNF: [facility] Diastolic (mm Hg) 68 06/21/2018 SNF: [facility] Heart Rate 80 {beats}/min 06/21/2018 SNF: [facility] Systolic (mm Hg) 132 06/21/2018 SNF: [facility] Diastolic (mm Hg) 68 06/21/2018 SNF: [facility] Heart Rate 80 {beats}/min 06/21/2018 SNF: [facility] Respitory Rate 18 06/21/2018 SNF: [facility] Systolic (mm Hg) 138 06/21/2018 SNF: [facility] Diastolic (mm Hg) 76 06/21/2018 SNF: [facility] Temperature Oral (F) 97.7 F 06/21/2018 SNF: [facility] Heart Rate 73 {beats}/min 06/21/2018 SNF: [facility] Respitory Rate 18 06/21/2018 SNF: [facility] Systolic (mm Hg) 114 06/21/2018 SN[facility]: [facility] Diastolic (mm Hg) 52 06/21/2018 SNF: [facility] Temperature Oral (F) 97.8 F 06/21/2018 SNF: [facility] Heart Rate 81 {beats}/min 06/21/2018 [facility]: [facility] Systolic (mm Hg) 135 06/21/2018 SNF: [facility] Diastolic (mm Hg) 77 06/21/2018 SNF: [facility] Heart Rate 80 {beats}/min 06/21/2018 SNF: [facility] Systolic (mm Hg) 135 06/21/2018 SNF: [facility] Diastolic (mm Hg) 77 06/21/2018 SNF: [facility] Heart Rate 68 {beats}/min 06/21/2018 SNF: [facility] Respitory Rate 18 06/20/2018 SNF: [facility] Systolic (mm Hg) 137 06/20/2018 SNF: [facility] Diastolic (mm Hg) 76 06/20/2018 SNF: [facility] Temperature Oral (F) 97.9 F 06/20/2018 SNF: [facility] Heart Rate 73 {beats}/min 06/20/2018 SNF: [facility] Systolic (mm Hg) 130 06/20/2018 SNF: [facility] Diastolic (mm Hg) 86 06/20/2018 SNF: [facility] Heart Rate 75 {beats}/min 06/20/2018 SNF: [facility] Respitory Rate 18 06/20/2018 SNF: [facility] Systolic (mm Hg) 134 06/20/2018 SNF: [facility] Diastolic (mm Hg) 62 06/20/2018 SNF: [facility] Temperature Oral (F) 98.1 F 06/20/2018 SNF: [facility] Heart Rate 76 {beats}/min 06/20/2018 SNF: [facility] Systolic (mm Hg) 130 06/20/2018 SNF: [facility] Diastolic (mm Hg) 86 06/20/2018 SNF: [facility] Heart Rate 75 {beats}/min 06/20/2018 SNF: [facility] Respitory Rate 18 06/20/2018 SNF: [facility] Systolic (mm Hg) 125 06/20/2018 SNF: [facility] Diastolic (mm Hg) 65 06/20/2018 SNF: [facility] Temperature Oral (F) 97.5 F 06/20/2018 SNF: [facility] Heart Rate 90 {beats}/min 06/20/2018 SNF: [facility] Respitory Rate 18 06/20/2018 SNF: [facility] Systolic (mm Hg) 119 06/20/2018 SNF: [facility] Diastolic (mm Hg) 69 06/20/2018 SNF: [facility] Temperature Oral (F) 97.3 F 06/20/2018 SNF: [facility] Heart Rate 92 {beats}/min 06/20/2018 SNF: [facility] Systolic (mm Hg) 125 06/20/2018 SNF: [facility] Diastolic (mm Hg) 69 06/20/2018 SNF: [facility] Heart Rate 104 {beats}/min 06/20/2018 SNF: [facility] Systolic (mm Hg) 125 06/20/2018 SNF: [facility] Diastolic (mm Hg) 69 06/20/2018 SNF: [facility] Heart Rate 104 {beats}/min 06/20/2018 SNF: [facility] Respitory Rate 18 06/19/2018 [facility] Systolic (mm Hg) 157 06/19/2018 SNF: [facility] Diastolic (mm Hg) 84 06/19/2018 SNF: [facility] Temperature Oral (F) 97.6 F 06/19/2018 SNF: [facility] Heart Rate 75 {beats}/min 06/19/2018 SNF: [facility] Systolic (mm Hg) 157 06/19/2018 SNF: [facility] Diastolic (mm Hg) 84 06/19/2018 SNF: [facility] Heart Rate 75 {beats}/min 06/19/2018 SNF: [facility] Systolic (mm Hg) 157 06/19/2018 SNF: [facility] Diastolic (mm Hg) 84 06/19/2018 SNF: [facility] Heart Rate 75 {beats}/min 06/19/2018 SNF: [facility] Respitory Rate 18 06/19/2018 SNF: [facility] Systolic (mm Hg) 100 06/19/2018 SNF: [facility] Diastolic (mm Hg) 64 06/19/2018 SNF: [facility] Temperature Oral (F) 98 F 06/19/2018 SNF: [facility] Heart Rate 90 {beats}/min 06/19/2018 SNF: [facility] Respitory Rate 18 06/19/2018 SNF: [facility] Systolic (mm Hg) 113 06/19/2018 SNF: [facility] Diastolic (mm Hg) 81 06/19/2018 SNF: [facility] Temperature Oral (F) 97.3 F 06/19/2018 SNF: [facility] Heart Rate 89 {beats}/min 06/19/2018 SNF: [facility] Systolic (mm Hg) 159 06/19/2018 SNF: [facility] Diastolic (mm Hg) 74 06/19/2018 SN[facility]: [facility] Heart Rate 80 {beats}/min 06/19/2018 SNF: [facility] Systolic (mm Hg) 159 06/19/2018 SNF: [facility] Diastolic (mm Hg) 74 06/19/2018 SNF: [facility] Heart Rate 80 {beats}/min 06/19/2018 SNF: [facility] Respitory Rate 17 06/18/2018 SNF: [facility] Systolic (mm Hg) 112 06/18/2018 SNF: [facility] Diastolic (mm Hg) 62 06/18/2018 SNF: [facility] Temperature Oral (F) 98.5 F 06/18/2018 SNF: [facility] Heart Rate 96 {beats}/min 06/18/2018 SNF: [facility] Systolic (mm Hg) 112 06/18/2018 SNF: [facility] Diastolic (mm Hg) 62 06/18/2018 SNF: [facility] Heart Rate 96 {beats}/min 06/18/2018 SNF: [facility] Systolic (mm Hg) 110 06/18/2018 SNF: [facility] Diastolic (mm Hg) 54 06/18/2018 SNF: [facility] Heart Rate 98 {beats}/min 06/18/2018 SNF: [facility] Weight 195.8 06/18/2018 SNF: [facility] Height 67 06/18/2018 SNF: [facility] Respitory Rate 18 06/18/2018 SNF: [facility] Systolic (mm Hg) 108 06/18/2018 SNF: [facility] Diastolic (mm Hg) 52 06/18/2018 SNF: [facility] Temperature Oral (F) 98.6 F 06/18/2018 SNF: [facility] Heart Rate 99 {beats}/min 06/18/2018 SNF: [facility] Systolic (mm Hg) 104 06/18/2018 SNF: [facility] Diastolic (mm Hg) 63 06/18/2018 SNF: [facility] Heart Rate 100 {beats}/min 06/18/2018 SNF: [facility] Systolic (mm Hg) 104 06/17/2018 SNF: [facility] Diastolic (mm Hg) 63 06/17/2018 SNF: [facility] Temperature Oral (F) 97.8 F 06/17/2018 SNF: [facility] Respitory Rate 19 06/17/2018 SNF: [facility] Heart Rate 100 {beats}/min 06/17/2018 SNF: [facility] Respitory Rate 18 04/08/2018 SNF: [facility] Systolic (mm Hg) 136 04/08/2018 SNF: [facility] Diastolic (mm Hg) 72 04/08/2018 SNF: [facility] Temperature Oral (F) 97.9 F 04/08/2018 SNF: [facility] Heart Rate 88 {beats}/min 04/08/2018 SNF: [facility] Respitory Rate 18 04/08/2018 SNF: [facility] Systolic (mm Hg) 136 04/08/2018 SNF: [facility] [place] Diastolic (mm Hg) 72 04/08/2018 SNF: [facility] Temperature Oral (F) 97.9 F 04/08/2018 SNF: [facility] Heart Rate 88 {beats}/min 04/08/2018 SNF: [facility] Weight 189 04/08/2018 SNF: [facility] Weight 189 04/08/2018 SNF: [facility] Respitory Rate 18 04/08/2018 SNF: [facility] Systolic (mm Hg) 146 04/08/2018 SNF: [facility] Diastolic (mm Hg) 59 04/08/2018 SNF: [facility] Temperature Oral (F) 98.6 F 04/08/2018 SNF: [facility] Heart Rate 89 {beats}/min 04/08/2018 SNF: [facility] Respitory Rate 18 04/08/2018 SNF: [facility] Systolic (mm Hg) 146 04/08/2018 SNF: [facility] Diastolic (mm Hg) 59 04/08/2018 SNF: [facility] Temperature Oral (F) 98.6 F 04/08/2018 SNF: [facility] Heart Rate 89 {beats}/min 04/08/2018 SNF: [facility] Respitory Rate 18 04/08/2018 SNF: [facility] [place] Systolic (mm Hg) 148 04/08/2018 SNF: [facility] Diastolic (mm Hg) 60 04/08/2018 SNF: [facility] Temperature Oral (F) 96.8 F 04/08/2018 SNF: [facility] Heart Rate 80 {beats}/min 04/08/2018 SNF: [facility] Respitory Rate 18 04/08/2018 SNF: [facility] [place] Systolic (mm Hg) 148 04/08/2018 SNF: [facility] Diastolic (mm Hg) 60 04/08/2018 SNF: [facility] Temperature Oral (F) 96.8 F 04/08/2018 SNF: [facility] Heart Rate 80 {beats}/min 04/08/2018 SNF: [facility] Respitory Rate 18 04/07/2018 SNF: [facility] Systolic (mm Hg) 148 04/07/2018 SNF: [facility] Diastolic (mm Hg) 60 04/07/2018 SNF: [facility] Temperature Oral (F) 96.8 F 04/07/2018 SNF: [facility] Heart Rate 80 {beats}/min 04/07/2018 SNF: [facility] Respitory Rate 18 04/07/2018 SNF: [facility] Systolic (mm Hg) 148 04/07/2018 SNF: [facility] Diastolic (mm Hg) 60 04/07/2018 SNF: [facility] Temperature Oral (F) 96.8 F 04/07/2018 SNF: [facility] Heart Rate 80 {beats}/min 04/07/2018 SNF: [facility] Respitory Rate 18 04/07/2018 SNF: [facility] Systolic (mm Hg) 151 04/07/2018 SNF: [facility] Diastolic (mm Hg) 59 04/07/2018 SNF: [facility] Temperature Oral (F) 96.4 F 04/07/2018 SNF: [facility] Heart Rate 82 {beats}/min 04/07/2018 SNF: [facility] Respitory Rate 18 04/07/2018 SNF: [facility] Systolic (mm Hg) 151 04/07/2018 SNF: [facility] Diastolic (mm Hg) 59 04/07/2018 SNF: [facility] Temperature Oral (F) 96.4 F 04/07/2018 SNF: [facility] Heart Rate 82 {beats}/min 04/07/2018 SN[facility]: [facility] Respitory Rate 18 04/07/2018 SNF: [facility] Systolic (mm Hg) 128 04/07/2018 SN[facility]: [facility] [place] Diastolic (mm Hg) 66 04/07/2018 SNF: [facility] Temperature Oral (F) 98 F 04/07/2018 SNF: [facility] Heart Rate 72 {beats}/min 04/07/2018 SNF: [facility] Respitory Rate 18 04/07/2018 SNF: [facility] Systolic (mm Hg) 128 04/07/2018 SNF: [facility] Diastolic (mm Hg) 66 04/07/2018 SNF: [facility] Temperature Oral (F) 98 F 04/07/2018 SNF: [facility] Heart Rate 72 {beats}/min 04/07/2018 SNF: [facility] Respitory Rate 18 04/06/2018 SNF: [facility] Systolic (mm Hg) 125 04/06/2018 SNF: [facility] Diastolic (mm Hg) 74 04/06/2018 SNF: [facility] Temperature Oral (F) 97.8 F 04/06/2018 SNF: [facility] Heart Rate 73 {beats}/min 04/06/2018 SNF: [facility] Respitory Rate 18 04/06/2018 SNF: [facility] Systolic (mm Hg) 125 04/06/2018 SNF: [facility] Diastolic (mm Hg) 74 04/06/2018 SNF: [facility] Temperature Oral (F) 97.8 F 04/06/2018 SNF: [facility] Heart Rate 73 {beats}/min 04/06/2018 SNF: [facility] [place] Respitory Rate 18 04/06/2018 SNF: [facility] Systolic (mm Hg) 129 04/06/2018 SNF: [facility] Diastolic (mm Hg) 83 04/06/2018 SNF: [facility] Temperature Oral (F) 98.3 F 04/06/2018 [facility] Heart Rate 66 {beats}/min 04/06/2018 SNF: [facility] Respitory Rate 18 04/06/2018 SNF: [facility] [place] Systolic (mm Hg) 129 04/06/2018 SNF: [facility] [place] Diastolic (mm Hg) 83 04/06/2018 SN[facility]: [facility] Temperature Oral (F) 98.3 F 04/06/2018 SNF: [facility] Heart Rate 66 {beats}/min 04/06/2018 SNF: [facility] Respitory Rate 17 04[facility]06/2018 [facility]: [facility] [place] Systolic (mm Hg) 132 04/06/2018 SN[facility] [place] Diastolic (mm Hg) 74 04/06/2018 [facility] Temperature Oral (F) 98.8 F 04/06/2018 [facility] Heart Rate 70 {beats}/min 04/06/2018 SNF: [facility] [place] Respitory Rate 17 04/06/2018 SNF: [facility] [place] Systolic (mm Hg) 132 04/06/2018 SNF: [facility] [place] Diastolic (mm Hg) 74 04/06/2018 SNF: [facility] Temperature Oral (F) 98.8 F 04/06/2018 SNF: [facility] Heart Rate 70 {beats}/min 04/06/2018 SNF: [facility] [place] Respitory Rate 17 04/06/2018 SNF: [facility] [place] Systolic (mm Hg) 132 04/06/2018 SNF: [facility] [place] Diastolic (mm Hg) 74 04/06/2018 SNF: [facility] Temperature Oral (F) 98.8 F 04/06/2018 [facility]: [facility] Heart Rate 70 {beats}/min 04/06/2018 SNF: [facility] [place] Respitory Rate 17 04/06/2018 SNF: [facility] [place] Systolic (mm Hg) 132 04/06/2018 [facility] Diastolic (mm Hg) 74 04/06/2018 SNF: [facility] Temperature Oral (F) 98.8 F 04/06/2018 SNF: [facility] Heart Rate 70 {beats}/min 04/06/2018 SNF: [facility] [place] Respitory Rate 18 04/05/2018 SNF: [facility] Systolic (mm Hg) 138 04/05/2018 SNF: [facility] [place] Diastolic (mm Hg) 74 04/05/2018 SNF: [facility] Temperature Oral (F) 98.1 F 04/05/2018 SNF: [facility] Heart Rate 88 {beats}/min 04/05/2018 SNF: [facility] Respitory Rate 18 04/05/2018 SNF: [facility] Systolic (mm Hg) 138 04/05/2018 SNF: [facility] Diastolic (mm Hg) 74 04/05/2018 SNF: [facility] Temperature Oral (F) 98.1 F 04/05/2018 SNF: [facility] Heart Rate 88 {beats}/min 04/05/2018 SNF: [facility] [place] Respitory Rate 18 04/05/2018 SNF: [facility] [place] Systolic (mm Hg) 147 04/05/2018 SNF: [facility] [place] Diastolic (mm Hg) 65 04/05/2018 SNF: [facility] Temperature Oral (F) 97.5 F 04/05/2018 SNF: [facility] Heart Rate 87 {beats}/min 04/05/2018 SNF: [facility] Respitory Rate 18 04/05/2018 SNF: [facility] Systolic (mm Hg) 147 04/05/2018 SNF: [facility] [place] Diastolic (mm Hg) 65 04/05/2018 SNF: [facility] Temperature Oral (F) 97.5 F 04/05/2018 SNF: [facility] Heart Rate 87 {beats}/min 04/05/2018 SNF: [facility] Respitory Rate 17 04/05/2018 SNF: [facility] Systolic (mm Hg) 120 04/05/2018 SNF: [facility] Diastolic (mm Hg) 72 04/05/2018 SNF: [facility] Temperature Oral (F) 98.8 F 04/05/2018 SNF: [facility] Heart Rate 65 {beats}/min 04/05/2018 SNF: [facility] [place] Respitory Rate 17 04/05/2018 SNF: [facility] [place] Systolic (mm Hg) 120 04/05/2018 SNF: [facility] [place] Diastolic (mm Hg) 72 04/05/2018 SNF: [facility] Temperature Oral (F) 98.8 F 04/05/2018 SNF: [facility] Heart Rate 65 {beats}/min 04/05/2018 SNF: [facility] Respitory Rate 17 04/05/2018 SNF: [facility] Systolic (mm Hg) 120 04/05/2018 SNF: [facility] Diastolic (mm Hg) 72 04/05/2018 SNF: [facility] Temperature Oral (F) 98.8 F 04/05/2018 SNF: [facility] Heart Rate 65 {beats}/min 04/05/2018 SNF: [facility] Respitory Rate 17 04/05/2018 SNF: [facility] Systolic (mm Hg) 120 04/05/2018 SNF: [facility] Diastolic (mm Hg) 72 04/05/2018 SNF: [facility] Temperature Oral (F) 98.8 F 04/05/2018 SNF: [facility] Heart Rate 65 {beats}/min 04/05/2018 [facility] [place] Respitory Rate 18 04/04/2018 SNF: [facility] [place] Systolic (mm Hg) 125 04/04/2018 SNF: [facility] [place] Diastolic (mm Hg) 76 04/04/2018 SNF: [facility] Temperature Oral (F) 97.4 F 04/04/2018 SNF: [facility] Heart Rate 78 {beats}/min 04/04/2018 SNF: [facility] [place] Respitory Rate 18 04/04/2018 SNF: [facility] Systolic (mm Hg) 125 04/04/2018 SNF: [facility] Diastolic (mm Hg) 76 04/04/2018 SNF: [facility] Temperature Oral (F) 97.4 F 04/04/2018 SNF: [facility] Heart Rate 78 {beats}/min 04/04/2018 SNF: [facility] Respitory Rate 18 04/04/2018 SNF: [facility] Systolic (mm Hg) 129 04/04/2018 SNF: [facility] Diastolic (mm Hg) 74 04/04/2018 SNF: [facility] Temperature Oral (F) 97.5 F 04/04/2018 SNF: [facility] Heart Rate 80 {beats}/min 04/04/2018 SNF: [facility] Respitory Rate 18 04/04/2018 SNF: [facility] Systolic (mm Hg) 129 04/04/2018 SNF: [facility] Diastolic (mm Hg) 74 04/04/2018 SNF: [facility] Temperature Oral (F) 97.5 F 04/04/2018 SNF: [facility] Heart Rate 80 {beats}/min 04/04/2018 SNF: [facility] Respitory Rate 17 04/04/2018 SNF: [facility] Systolic (mm Hg) 140 04/04/2018 SNF: [facility] Diastolic (mm Hg) 69 04/04/2018 SNF: [facility] Temperature Oral (F) 98.3 F 04/04/2018 SNF: [facility] Heart Rate 85 {beats}/min 04/04/2018 SNF: [facility] Respitory Rate 17 04/04/2018 SNF: [facility] Systolic (mm Hg) 140 04/04/2018 SNF: [facility] Diastolic (mm Hg) 69 04/04/2018 SNF: [facility] Temperature Oral (F) 98.3 F 04/04/2018 SNF: [facility] Heart Rate 85 {beats}/min 04/04/2018 SN[facility]: [facility] Respitory Rate 17 04/04/2018 [facility]: [facility] [place] Systolic (mm Hg) 159 04/04/2018 SN[facility]: [facility] [place] Diastolic (mm Hg) 68 04/04/2018 SNF: [facility] Temperature Oral (F) 98.6 F 04/04/2018 SNF: [facility] [place] Heart Rate 85 {beats}/min 04/04/2018 SNF: [facility] [place] Respitory Rate 17 04/03/2018 SNF: [facility] [place] Systolic (mm Hg) 159 04/03/2018 SN[facility]: [facility] [place] Diastolic (mm Hg) 68 04/03/2018 SNF: [facility] Temperature Oral (F) 98.6 F 04/03/2018 SN[facility]: [facility] Heart Rate 85 {beats}/min 04/03/2018 SNF: [facility] [place] Heart Rate 62 {beats}/min 04/03/2018 SNF: [facility] Heart Rate 62 {beats}/min 04/03/2018 SNF: [facility] Respitory Rate 20 04/03/2018 SNF: [facility] [place] Systolic (mm Hg) 141 04/03/2018 SNF: [facility] [place] Diastolic (mm Hg) 78 04/03/2018 SNF: [facility] Temperature Oral (F) 97.9 F 04/03/2018 SN[facility]: [facility] Heart Rate 79 {beats}/min 04/03/2018 SNF: [facility] Respitory Rate 20 04/03/2018 SNF: [facility] [place] Systolic (mm Hg) 141 04/03/2018 SNF: [facility] [place] Diastolic (mm Hg) 78 04/03/2018 SNF: [facility] Temperature Oral (F) 97.9 F 04/03/2018 [facility]: [facility] [place] Heart Rate 79 {beats}/min 04/03/2018 SNF: [facility] [place] Respitory Rate 20 04/02/2018 SNF: [facility] Systolic (mm Hg) 126 04/02/2018 SNF: [facility] Diastolic (mm Hg) 73 04/02/2018 SNF: [facility] Temperature Oral (F) 98.2 F 04/02/2018 SNF: [facility] Heart Rate 64 {beats}/min 04/02/2018 SNF: [facility] Respitory Rate 20 04/02/2018 SNF: [facility] Systolic (mm Hg) 126 04/02/2018 SNF: [facility] Diastolic (mm Hg) 73 04/02/2018 SNF: [facility] Temperature Oral (F) 98.2 F 04/02/2018 SNF: [facility] Heart Rate 64 {beats}/min 04/02/2018 SNF: [facility] Respitory Rate 20 04/02/2018 SNF: [facility] Systolic (mm Hg) 118 04/02/2018 SNF: [facility] Diastolic (mm Hg) 65 04/02/2018 SNF: [facility] Temperature Oral (F) 97.8 F 04/02/2018 SNF: [facility] Heart Rate 65 {beats}/min 04/02/2018 SNF: [facility] Respitory Rate 20 04/02/2018 SNF: [facility] Systolic (mm Hg) 118 04/02/2018 SNF: [facility] Diastolic (mm Hg) 65 04/02/2018 SNF: [facility] Temperature Oral (F) 97.8 F 04/02/2018 SNF: [facility] Heart Rate 65 {beats}/min 04/02/2018 SNF: [facility] Respitory Rate 20 04/01/2018 SNF: [facility] Temperature Oral (F) 97.9 F 04/01/2018 SNF: [facility] Respitory Rate 20 04/01/2018 SNF: [facility] Temperature Oral (F) 97.9 F 04/01/2018 SNF: [facility] Weight 191 04/01/2018 SNF: [facility] Weight 191 04/01/2018 SNF: [facility] Respitory Rate 18 04/01/2018 SNF: [facility] Systolic (mm Hg) 122 04/01/2018 [facility]: [facility] [place] Diastolic (mm Hg) 70 04/01/2018 SNF: [facility] Temperature Oral (F) 97.8 F 04/01/2018 SN[facility]: [facility] Heart Rate 70 {beats}/min 04/01/2018 SNF: [facility] [place] Respitory Rate 18 04/01/2018 SNF: [facility] [place] Systolic (mm Hg) 122 04/01/2018 SN[facility]: [facility] [place] Diastolic (mm Hg) 70 04/01/2018 SN[facility]: [facility] Temperature Oral (F) 97.8 F 04/01/2018 SN[facility]: [facility] Heart Rate 70 {beats}/min 04/01/2018 SNF: [facility] Respitory Rate 18 04/01/2018 SNF: [facility] Systolic (mm Hg) 122 04/01/2018 SNF: [facility] [place] Diastolic (mm Hg) 70 04/01/2018 SNF: [facility] Temperature Oral (F) 97.8 F 04/01/2018 SNF: [facility] Heart Rate 70 {beats}/min 04/01/2018 SNF: [facility] Respitory Rate 18 04/01/2018 SN[facility]: [facility] Systolic (mm Hg) 122 04/01/2018 SNF: [facility] [place] Diastolic (mm Hg) 70 04/01/2018 SNF: [facility] Temperature Oral (F) 97.8 F 04/01/2018 SNF: [facility] Heart Rate 70 {beats}/min 04/01/2018 SNF: [facility] [place] Respitory Rate 18 04/01/2018 SN[facility]: [facility] [place] Systolic (mm Hg) 124 04/01/2018 SN[facility]: [facility] [place] Diastolic (mm Hg) 72 04/01/2018 [facility]: [facility] Temperature Oral (F) 97.2 F 04/01/2018 SNF: [facility] Heart Rate 74 {beats}/min 04/01/2018 [facility] Respitory Rate 18 04/01/2018 [facility] Systolic (mm Hg) 124 04/01/2018 [facility]: [facility] [place] Diastolic (mm Hg) 72 04/01/2018 SNF: [facility] Temperature Oral (F) 97.2 F 04/01/2018 SNF: [facility] Heart Rate 74 {beats}/min 04/01/2018 SNF: [facility] [place] Respitory Rate 18 03/31/2018 SNF: [facility] [place] Systolic (mm Hg) 122 03/31/2018 SNF: [facility] [place] Diastolic (mm Hg) 76 03/31/2018 SNF: [facility] Temperature Oral (F) 97.4 F 03/31/2018 SNF: [facility] Heart Rate 76 {beats}/min 03/31/2018 [facility] Respitory Rate 18 03/31/2018 SNF: [facility] Systolic (mm Hg) 122 03/31/2018 SNF: [facility] Diastolic (mm Hg) 76 03/31/2018 SNF: [facility] Temperature Oral (F) 97.4 F 03/31/2018 SNF: [facility] Heart Rate 76 {beats}/min 03/31/2018 SNF: [facility] Respitory Rate 16 03/31/2018 SNF: [facility] Systolic (mm Hg) 110 03/31/2018 SNF: [facility] Diastolic (mm Hg) 75 03/31/2018 SNF: [facility] Temperature Oral (F) 97.5 F 03/31/2018 SNF: [facility] Heart Rate 74 {beats}/min 03/31/2018 SNF: [facility] Respitory Rate 16 03/31/2018 SNF: [facility] Systolic (mm Hg) 110 03/31/2018 SNF: [facility] Diastolic (mm Hg) 75 03/31/2018 SNF: [facility] Temperature Oral (F) 97.5 F 03/31/2018 SNF: [facility] Heart Rate 74 {beats}/min 03/31/2018 SNF: [facility] [place] Respitory Rate 16 03/31/2018 SNF: [facility] [place] Systolic (mm Hg) 110 03/31/2018 [facility]: [facility] [place] Diastolic (mm Hg) 75 03/31/2018 SNF: [facility] Temperature Oral (F) 97.5 F 03/31/2018 SNF: [facility] Heart Rate 78 {beats}/min 03/31/2018 SNF: [facility] [place] Respitory Rate 16 03/31/2018 SNF: [facility] [place] Systolic (mm Hg) 110 03/31/2018 SNF: [facility] [place] Diastolic (mm Hg) 75 03/31/2018 SNF: [facility] Temperature Oral (F) 97.5 F 03/31/2018 SNF: [facility] Heart Rate 78 {beats}/min 03/31/2018 SNF: [facility] Respitory Rate 18 03/30/2018 SNF: [facility] Systolic (mm Hg) 148 03/30/2018 SNF: [facility] [place] Diastolic (mm Hg) 74 03/30/2018 SNF: [facility] Temperature Oral (F) 97.6 F 03/30/2018 SNF: [facility] Heart Rate 77 {beats}/min 03/30/2018 SNF: [facility] Respitory Rate 18 03/30/2018 SNF: [facility] Systolic (mm Hg) 148 03/30/2018 SNF: [facility] Diastolic (mm Hg) 74 03/30/2018 SNF: [facility] Temperature Oral (F) 97.6 F 03/30/2018 SNF: [facility] Heart Rate 77 {beats}/min 03/30/2018 SNF: [facility] [place] Respitory Rate 18 03/29/2018 SNF: [facility] Systolic (mm Hg) 150 03/29/2018 SNF: [facility] Diastolic (mm Hg) 82 03/29/2018 SNF: [facility] Temperature Oral (F) 98 F 03/29/2018 SNF: [facility] Heart Rate 74 {beats}/min 03/29/2018 SNF: [facility] Respitory Rate 18 03/29/2018 SNF: [facility] Systolic (mm Hg) 150 03/29/2018 SNF: [facility] Diastolic (mm Hg) 82 03/29/2018 SNF: [facility] Temperature Oral (F) 98 F 03/29/2018 SNF: [facility] Heart Rate 74 {beats}/min 03/29/2018 SNF: [facility] Respitory Rate 20 03/29/2018 SNF: [facility] Systolic (mm Hg) 144 03/29/2018 SNF: [facility] Diastolic (mm Hg) 75 03/29/2018 SNF: [facility] Temperature Oral (F) 98.2 F 03/29/2018 SNF: [facility] Heart Rate 80 {beats}/min 03/29/2018 SNF: [facility] Respitory Rate 20 03/29/2018 SNF: [facility] Systolic (mm Hg) 144 03/29/2018 SNF: [facility] Diastolic (mm Hg) 75 03/29/2018 SNF: [facility] Temperature Oral (F) 98.2 F 03/29/2018 SNF: [facility] Heart Rate 80 {beats}/min 03/29/2018 SNF: [facility] Weight 189 03/28/2018 SNF: [facility] Height 67 03/28/2018 SNF: [facility] Weight 189 03/28/2018 SNF: [facility] Height 67 03/28/2018 SNF: [facility] Respitory Rate 20 03/28/2018 SNF: [facility] Systolic (mm Hg) 139 03/28/2018 SNF: [facility] Diastolic (mm Hg) 62 03/28/2018 SNF: [facility] Temperature Oral (F) 98.3 F 03/28/2018 SNF: [facility] Heart Rate 82 {beats}/min 03/28/2018 SNF: [facility] Respitory Rate 20 03/28/2018 [facility]: [facility] Systolic (mm Hg) 139 03/28/2018 [facility]: [facility] [place] Diastolic (mm Hg) 62 03/28/2018 SN[facility]: [facility] Temperature Oral (F) 98.3 F 03/28/2018 [facility] [place] Heart Rate 82 {beats}/min 03/28/2018 [facility]: [facility] [place] Respitory Rate 20 03/28/2018 [facility]: [facility] [place] Systolic (mm Hg) 129 03/28/2018 [facility]: [facility] [place] Diastolic (mm Hg) 85 03/28/2018 SN[facility]: [facility] Temperature Oral (F) 98.6 F 03/28/2018 SNF: [facility] Heart Rate 84 {beats}/min 03/28/2018 SNF: [facility] Respitory Rate 20 03/28/2018 [facility]: [facility] [place] Systolic (mm Hg) 129 03/28/2018 SN[facility]: [facility] [place] Diastolic (mm Hg) 85 03/28/2018 SN[facility]: [facility] Temperature Oral (F) 98.6 F 03/28/2018 SNF: [facility] Heart Rate 84 {beats}/min 03/28/2018 SNF: [facility] Encounters Location Location Details Encounter Type Encounter Number Reason For Visit Attending Provider ADM Date DC Date Status Source Discharged Inpatient (obs) [id number] KALEB CHA MD 01/04/2018 01/06/2018 [facility] Discharged Inpatient [id number] KALEB CHA MD 02/23/2018 03/14/2018 [facility] Discharged Inpatient [id number] KALEB CHA MD 03/26/2018 03/27/2018 [facility] Discharged Inpatient (obs) [id number] KALEB CHA MD 05/04/2018 05/04/2018 [facility] Discharged Inpatient [id number] KALEB CHA MD 05/08/2018 05/15/2018 [facility] Discharged Inpatient (obs) [id number] KALEB CHA MD 05/23/2018 05/24/2018 [facility] Discharged Inpatient [id number] KALEB CHA MD 06/04/2018 06/17/2018 [facility] Discharged Inpatient [id number] KALEB CHA MD 06/22/2018 07/08/2018 [facility] Procedures Procedure Code Date Perfomer Comments Source CT of abdomen and pelvis without contrast [id number] 07/05/2018 [facility] X-ray of chest, two views [id number] 06/30/2018 [facility] Thoracentesis with ultrasound guidance [id number] 06/25/2018 [facility] X-ray of chest, two views [id number] 06/16/2018 [facility] TRANSFUSE NONAUT PLATELETS IN PERIPH VEIN, PERC [id number] 06/10/2018 [facility] TRANSFUSE NONAUT RED BLOOD CELLS IN PERIPH VEIN, PERC [id number] 06/06/2018 [facility] Computed tomography of chest without contrast [id number] 06/03/2018 [facility] X-ray of chest, single view [id number] 06/02/2018 [facility] Computed tomography of brain without radiopaque contrast [id number] 05/23/2018 [facility] X-ray of chest, single view [id number] 05/03/2018 [facility] X-ray of chest, single view [id number] 03/20/2018 [facility] CT of abdomen and pelvis without contrast [id number] 03/04/2018 [facility] EXCISION OF R FOOT SUBCU/FASCIA, OPEN APPROACH [id number] 02/25/[facility] wo contrast [id number] 02/24/2018 [facility] [address] of abdomen and pelvis without contrast [id number] 02/23/2018 [facility] CT of abdomen and pelvis without contrast [id number] 01/05/2018 [facility] Computed tomography of chest without contrast [id number] 01/05/2018 [facility] X-ray of chest, two views [id number] 01/04/2018 [facility] Assessment and Plan No Data Provided for This Section Plan of Care Plan of Care Date Source Discharge Date 07/08/18 7:15pm Disposition HOME HEALTH SERVICE Instructions/Education Provided Anemia Pyelonephritis Prescriptions See Medication Section Additional Instructions/Education DO NOT GIVE ANY DIABETIC MEDICATION ,GLIPIZIDE WAS DISCONTINUED. FOLLOW UP WITH [facility] NEXT WEEK. 07/08/2018 [facility] Social History Social History Date Source Social History Problem Response Recorded Date/Time Onset [...] No 02/09/2017 3:54pm Not Applicable Not Applicable 07/08/2018 [facility] Smoking StatusStart DateEnd Date Unknown if ever smoked 06/22/2018 18:57:39 06/08/2018 SNF: [facility] Family History Value Date Source Relationship Condition Age at Onset Recorded Date/Time 09 Brother Family history of diabetes mellitus Not Recorded 01/14/2017 3:25pm 09 Brother Family history of hypertension Not Recorded 01/14/2017 3:25pm 33 Father Family history of diabetes mellitus Not Recorded 01/14/2017 3:25pm 33 Father Family history of hypertension Not Recorded 01/14/2017 3:25pm 32 Mother Family history of completed stroke Not Recorded 01/14/2017 3:25pm 32 Mother Family history of diabetes mellitus Not Recorded 01/14/2017 3:25pm 32 Mother Family history of hypertension Not Recorded 01/14/2017 3:25pm 07/08/2018 [facility] Advance Directives Order Name Results Value Date Source Advance Directives Advance Directives Directive Response Recorded Date/Time Does the patient have an advance directive? No 06/22/18 10:45pm If yes, is advance directive on file with [facility]? No 06/22/18 10:45pm If not on file with [facility] will patient provide a copy? No 06/22/18 10:45pm Do you have a Directive to Physician? Yes 06/22/18 5:34pm Do you have a Medical Power of Booster Pump Oiler? Yes 06/22/18 5:34pm Do you have an out of hospital Do Not Resuscitate Order? Yes 06/22/18 5:34pm Do you have any special needs we should be aware of? No 06/22/18 5:34pm Do you have a support person here with you today? Yes 06/22/18 5:34pm Did patient receive Notice of Privacy Practices? Yes 06/22/18 5:34pm Did patient receive patient rights and responsibilities? Yes 06/22/18 5:34pm 07/08/2018 [facility] Advance Directives Advance Directives Cardiopulmonary Resuscitation 06/22/2018 SNF: [facility] Advance Directives Advance Directives Cardiopulmonary Resuscitation 04/08/2018 SNF: [facility] Functional Status No Data Provided for This Section
[2018-09-05 23:17] LABS: BASOPHILS % 0.3 % (0.0-1.0); EOSINOPHILS % 0.4 % (0.0-6.0); HEMATOCRIT 33.5 % (38.2-49.6); HEMOGLOBIN 11.1 g/dL (14.0-18.0); LYMPHOCYTES # (AUTO) 1.8 (1.0-3.2); LYMPHOCYTES % 24.2 % (18.0-39.1); MEAN CORPUSCULAR HEMOGLOBIN 31.1 pg (28-32); MEAN CORPUSCULAR HGB CONC 33.1 g/dL (31-35); MEAN CORPUSCULAR VOLUME 93.8 fL (81-99); MONOCYTES # (AUTO) 0.4 (0.2-0.8); MONOCYTES % 5.6 % (4.4-11.3); NEUTROPHILS # (AUTO) 5.2 (2.1-6.9); NEUTROPHILS % 68.4 % (38.7-80.0); PLATELET COUNT 309 x10e3/uL (140-360); RED BLOOD COUNT 3.57 x10e6/uL (4.3-5.7); RED CELL DISTRIBUTION WIDTH 16.1 % (11.7-14.4)
[2018-09-05 23:26] LABS: INR 1.06; PROTHROMBIN TIME 14.3 seconds (11.9-14.5)
[2018-09-05 23:27] LABS: PARTIAL THROMBOPLASTIN TIME 31.3 seconds (23.8-35.5)
[2018-09-05 23:38] LABS: CREATINE KINASE MB 2.8 ng/mL (0-5.0)
[2018-09-05 23:42] LABS: ALBUMIN 3.4 g/dL (3.5-5.0); ALBUMIN/GLOBULIN RATIO 0.9 (0.8-2.0); ANION GAP 20.2 mmol/L (8-16); CALCIUM 10.5 mg/dL (8.4-10.2); CREATININE, SERUM 2.55 mg/dL (0.72-1.25); POTASSIUM 4.2 mmol/L (3.5-5.1)
[2018-09-05] MEDS ORDERED: KETOROLAC TROMETHAMINE 30 MG/ML VIAL IV STA (23:54)
--- NOTE | 2018-09-06 01:00 | Diagnostic Imaging Report ---
Exam: Abdominal film Clinical History: Abdominal pain Comparison: None. DISCUSSION: Mildly dilated loops of small bowel 4 cm. Extensive vascular calcifications. IVC filter. IMPRESSION: Mildly dilated loops of small bowel Signed by: Dr. Tico Alejandro M.D. on 09/06/2018 12:56 AM
[2018-09-06 01:48] LABS: BILIRUBIN,URINE NEGATIVE (NEGATIVE); CLARITY,URINE CLEAR (CLEAR); COLOR,URINE YELLOW (YELLOW); KETONES,URINE NEGATIVE (NEGATIVE); LEUKOCYTE ESTERASE ,URINE LARGE (NEGATIVE); NITRITE,URINE NEGATIVE (NEGATIVE); PROTEIN,URINE DIPSTICK 1+ (NEGATIVE); URINE UROBILINOGEN 0.2 mg/dL (0.2 - 1)
[2018-09-06 02:00] LABS: BACTERIA,URINE RARE /HPF; EPITHELIAL CELLS,URINE FEW /LPF; RBC,URINE 0-5 /HPF (0-5); WBC,URINE (MAN) 21-50 /HPF (0-5)
[2018-09-06] MEDS ORDERED: BACTRIM DS TAB1 EACH PO (02:04)
[2018-09-07] MEDS ORDERED: BUMETANIDE2 MG PO (06:37)
== END 2018-09-06 02:10 | disposition home or self-care (01) ==
LOC: ER 22:37
DX: R10.84 Generalized abdominal pain (principal); R11.2 Nausea with vomiting, unspecified; Z87.891 Personal history of nicotine dependence
CPT/HCPCS: 36415; 74018; 80053; 81001; 82550; 82553; 84484; 85025; 85610; 85730; 86850; 86900; 96374; 99284

== ENCOUNTER 2018-09-07 01:19 | Inpatient (IN) | payer OTHER ==
[~2018-09-07] VITALS: Ht 170.2 cm; Wt 65.8 kg
[~2018-09-07 01:19] MED LIST changes: +BACTRIM DS TAB1 EACH PO
--- OUTSIDE RECORDS SUMMARY | 2018-09-07 01:22 | XMS REPORT | Clinical Summary ---
Author Author DEVIN 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 09/06/2016 [id number] / / [id number] Adhesion Barrier,Seprafilm 5x6 - Cement/Wong N/A: Abdomen GENZYME [id number] ler/Adhesi SURGICAL Implanted: Qty: 2 on 07/06/2014 by ve Snapsheet Amrit Elam MD 02/06/2017 [id number] / / [id number] Adhesion Barrier,Seprafilm 5x6 - Cement/Wong N/A: Abdomen GENZYME [id number] ler/Adhesi SURGICAL Implanted: Qty: 1 on 01/31/2015 by ve Snapsheet Amrit Elam MD [id number] / / Stent,Uret Polaris 5fr X 10cm - Uro Stent [place] [id number] SCIENTIFIC Implanted: Qty: 1 on 05/24/2013 03/09/2016 [id number] / / [id number] Stent,Uret Polaris 5fr X 10cm - Uro Stent Right: Ureter [place] [id number] SCIENTIFIC Implanted: Qty: 1 on 01/21/2014 by Baljit Larson MD Results Not on fileafter 09/06/2017 Insurance Payer Benefit Subscriber ID Type Phone Address Plan / Group [employer] TEX[employer] xxxxxxxxx Maps HMO ALL Contracted Advance Directives For more information, please contact: [phone] [place] [address] Date Inactivated Comments Code Status [...]
--- OUTSIDE RECORDS SUMMARY | 2018-09-07 01:23 | XMS REPORT | Continuity of Care Document ---
Author Author [employer] Organization [employer] Address Unknown Phone Unavailable Care Team Providers Care Order Builder Name Role Phone [employer] Unavailable Unavailable Problems Problem Status Onset Date Classification Date Reported Comments Source A41.9 SEPSIS, UNSPECIFIED ORGANISM 06/17/2018 Diagnosis 06/22/2018 SNF: [facility] M86.10 OTHER ACUTE OSTEOMYELITIS, UNSPECIFIED SITE 06/17/2018 Diagnosis 06/22/2018 SNF: [facility] J44.9 CHRONIC OBSTRUCTIVE PULMONARY DISEASE, UNSPECIFIED 06/17/2018 Diagnosis 06/22/2018 SNF: [facility] Type II diabetes mellitus uncontrolled 03/28/2018 Diagnosis 06/22/2018 SNF: [facility] E11.40 TYPE 2 DIABETES MELLITUS WITH DIABETIC NEUROPATHY, UNSPECIFIED 03/27/2018 Diagnosis 06/22/2018 SNF: [facility] L89.620 PRESSURE ULCER OF LEFT HEEL, UNSTAGEABLE 03/23/2018 Diagnosis 06/22/2018 SNF: [facility] J91.8 PLEURAL EFFUSION IN OTHER CONDITIONS CLASSIFIED ELSEWHERE 03/09/2018 Diagnosis 06/22/2018 SNF: [facility] F32.9 MAJOR DEPRESSIVE DISORDER, SINGLE EPISODE, UNSPECIFIED 03/09/2018 Diagnosis 06/22/2018 SNF: [facility] I73.9 PERIPHERAL VASCULAR DISEASE, UNSPECIFIED 03/09/2018 Diagnosis 06/22/2018 SNF: [facility] I48.91 UNSPECIFIED ATRIAL FIBRILLATION 03/09/2018 Diagnosis 06/22/2018 SNF: [facility] I50.9 HEART FAILURE, UNSPECIFIED 03/09/2018 Diagnosis 06/22/2018 SNF: [facility] S91.301A UNSPECIFIED OPEN WOUND, RIGHT FOOT, INITIAL ENCOUNTER 03/09/2018 Diagnosis 06/22/2018 SNF: [facility] Z94.0 KIDNEY TRANSPLANT STATUS 03/09/2018 Diagnosis 06/22/2018 SNF: [facility] Z91.81 HISTORY OF FALLING 03/09/2018 Diagnosis 06/22/2018 SNF: [facility] S29.9XXA UNSPECIFIED INJURY OF THORAX, INITIAL ENCOUNTER 03/09/2018 Diagnosis 06/22/2018 SNF: [facility] L03.119 CELLULITIS OF UNSPECIFIED PART OF LIMB 03/09/2018 Diagnosis 06/22/2018 SNF: [facility] N28.9 DISORDER OF KIDNEY AND URETER, UNSPECIFIED 03/09/2018 Diagnosis 06/22/2018 SNF: [facility] Atrial fibrillation Active Problem 07/09/2018 [facility] Blunt chest trauma Active Problem 07/09/2018 [facility] CHF Active Problem 07/09/2018 [facility] Chest pain Active Problem 07/09/2018 [facility] Chronic renal insufficiency Active Problem 07/09/2018 [facility] Cystitis Active Problem 07/09/2018 [facility] Diabetic foot ulcers Active Problem 07/09/2018 [facility] Dyspnea Active Problem 07/09/2018 [facility] HCAP Active Problem 07/09/2018 [facility] Hypertension Active Problem 07/09/2018 [facility] 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 [facility] Palpitations Active Problem 07/09/2018 [facility] Renal insufficiency Active Problem 07/09/2018 [facility] TIA Active Problem 07/09/2018 [facility] UTI Active Problem 07/09/2018 [facility] Renal transplant recipient Active Problem 07/09/2018 [facility] Renal transplant, status post Active Problem 07/09/2018 [facility] Medications Medication Details Route Status Patient Instructions Ordering Provider Order Date Source Amoxicillin/Potassium Clav (Amox Tr-K Clv 500-125 Mg Tab) 1 Each Tablet, Active 07/08/2018 [facility] Furosemide 40 Mg Tablet, 40 Mg Oral Daily Active 07/08/2018 [facility] Glipizide 10 Mg Tablet, 10 Mg Oral Twice A Day Active 07/08/2018 [facility] Bactroban Ointment 2 % 1 APPLICATION TOPICALLY DAILY External Active 06/21/2018 [facility] Calcitriol Capsule 0.5 MCG 1 CAP(S) BY MOUTH DAILY ON FRI/FRI/FRI Oral Active 06/19/2018 [facility] Folic Acid Tablet 1 MG Give 1 tablet by mouth one time a day for Supplement Oral Active 06/18/2018 [facility] Vitamin B12 Tablet Extended Release 1000 MCG Give 1 tablet by mouth one time a day for Supplement Oral [facility] Brimonidine Tartrate Solution 0.1 % 1 DROP(S) IN EACH EYE DAILY Ophthalmic Active 06/18/2018 [facility] Sodium Bicarbonate Tablet 650 MG Give 2 tablet by mouth three times a day related to KIDNEY TRANSPLANT STATUS (Z94.0) Oral Active 06/18/2018 [facility] Lasix Tablet 40 MG 1 TAB(S) BY MOUTH DAILY Oral Active 06/18/2018 [facility] guaiFENesin Syrup 100 MG/5ML Give 30 ml by mouth two times a day for Cough/Congestion [id number] Oral Active 06/18/2018 [facility] Magnesium Oxide Tablet 400 MG Give 1 tablet by mouth one time a day for Supplement Oral Active 06/18/2018 [facility] oxyCODONE HCl Tablet 5 MG Give 1 tablet by mouth every 4 hours as needed for pain DC [place] once Oxycodone arrives Oral Active 06/18/2018 [facility] Tresiba Solution 100 UNIT/ML Inject 20 unit subcutaneously one time a day for DMII Subcutaneous Active 06/18/[facility] Collagenase Ointment 250 UNIT/GM Apply to Right foot topically every day shift for Wound Care External Active 06/18/2018 [facility] Protonix Tablet Delayed Release 40 MG 1 TAB(S) BY MOUTH 2 TIMES A DAY Oral Active 06/18/2018 [facility] NIFEdipine ER Tablet Extended Release 24 Hour 30 MG Give 1 tablet by mouth every 12 hours for HTN Hold for SBP<110, HR<60 Oral Active 06/18/2018 SNF: [facility] Tacrolimus Capsule 1 MG 2 CAP(S) BY MOUTH EVERY 12 HOURS (2CAPS=2MG) Oral Active 06/18/2018 [facility] Latanoprost Solution 0.005 % 1 DROP(S) IN EACH EYE AT BEDTIME Ophthalmic Active 06/18/2018 [facility] Insulin Lispro Solution 100 UNIT/ML Inject as per sliding scale: if 121 - 150=2 units; 151 - 200=4 units; 201 - 250=6 units; 251 - 300=8 units; 301 - 350=10 units; 351 - 400=12 units; 401 - 999=14 units Call MD, subcutaneously before meals and at bedtime for DMII Subcutaneous Active 06/18/2018 SNF: [facility] Pitkin Tablet 10-325 MG Give 1 tablet by mouth every 4 hours as needed for Pain D/C when Percocet arrives Oral Active 06/17/2018 SNF: [facility] hydrALAZINE HCl Tablet 25 MG 1 TAB(S) BY MOUTH EVERY 4 HOURS NEEDED FOR SBP >180; DBP >90 Oral Active 06/17/2018 SNF: [facility] diphenhydrAMINE HCl Tablet 25 MG Give 1 tablet by mouth as needed for Itching Bedtime Oral Active 06/17/2018 SNF: [facility] oxyCODONE-Acetaminophen Tablet 5-325 MG Give 1 tablet by mouth every 4 hours as needed for Pain Oral Active 06/17/2018 SNF: [facility] Zofran Tablet 4 MG 1 TAB(S) BY MOUTH EVERY 4 HOURS NEEDED Oral Active 06/17/2018 SNF: [facility] Benzonatate Capsule 100 MG 1 CAP(S) BY MOUTH EVERY 6 HOURS NEEDED Oral Active 06/17/2018 SNF: [facility] Glipizide 5 Mg Tablet, 10 Mg Oral Twice Daily With Meals Active 05/24/2018 [facility] Ciprofloxacin Hcl (Cipro) 250 Mg Tablet, 250 Mg Oral Every 12 Hours Active 05/23/2018 [facility] Glipizide (Glucotrol) 10 Mg Tablet, 10 Mg Oral Twice A Day Active 05/23/2018 [facility] Allopurinol 300 Mg Tablet, 300 Mg Oral Daily Active 05/03/2018 [facility] Amoxicillin/Potassium Clav (Augmentin 500-125 Tablet) 1 Each Tablet, 500 Mg Oral Twice A Day Active 05/03/2018 [facility] Santyl Ointment 250 UNIT/GM Apply to right plantar foot ulcer topically every day shift for wound healing cleanse right plantar foot with ns or wc, appply santyl with nugauze packing and cover daily External Active 04/09/2018 SNF: [facility] Santyl Ointment 250 UNIT/GM Apply to right plantar foot ulcer topically every day shift for wound healing cleanse right plantar foot with ns or wc, appply santyl with nugauze packing and cover daily External Inactive 04/09/2018 SNF: [facility] Lidocaine Patch 5 % 1 PATCH(ES) TOPICALLY DAILY - REMOVE IN 12-HOURS (REMOVE OLD PATCH BEFORE APPLYING A NEW ONE) LOCATION : LEFT SHOULDER External Active 04/07/2018 SNF: [facility] Lidocaine Patch 5 % 1 PATCH(ES) TOPICALLY DAILY - REMOVE IN 12-HOURS (REMOVE OLD PATCH BEFORE APPLYING A NEW ONE) LOCATION : LEFT SHOULDER External Active 04/07/2018 SNF: [facility] Probiotic Capsule Give 1 capsule by mouth one time a day for Supplement. for 7 Days Oral Active 04/03/2018 SNF: [facility] Probiotic Capsule Give 1 capsule by mouth one time a day for Supplement. for 7 Days Oral Active 04/03/2018 SNF: [facility] HydrOXYzine HCl Tablet 25 MG 0.5 TAB(S) BY MOUTH DAILY NEEDED (0.5T=12.5MG) Oral Active 04/03/2018 SNF: [facility] HydrOXYzine HCl Tablet 25 MG 0.5 TAB(S) BY MOUTH DAILY NEEDED (0.5T=12.5MG) Oral Active 04/03/2018 SNF: [facility] HydrOXYzine HCl Solution 25 MG/ML Inject 0.5 tablet intramuscularly every 6 hours as needed for Itching Give half tab. Intramuscular Inactive 04/02/2018 SNF: [facility] HydrOXYzine HCl Solution 25 MG/ML Inject 0.5 tablet intramuscularly every 6 hours as needed for Itching Give half tab. Intramuscular Inactive 04/02/2018 SNF: [facility] Ondansetron HCl Tablet 4 MG 1 TAB(S) BY MOUTH EVERY 6 HOURS NEEDED FOR N/V Oral Active 04/02/2018 SNF: [facility] Ondansetron HCl Tablet 4 MG 1 TAB(S) BY MOUTH EVERY 6 HOURS NEEDED FOR N/V Oral Active 04/01/2018 SNF: [facility] OxyCODONE HCl Tablet Abuse-Deterrent 7.5 MG 0.5 TAB(S) BY MOUTH EVERY 4 HOURS NEEDED (0.5TAB=2.5MG) Oral Active 03/31/2018 SNF: [facility] OxyCODONE HCl Tablet Abuse-Deterrent 7.5 MG 0.5 TAB(S) BY MOUTH EVERY 4 HOURS NEEDED (0.5TAB=2.5MG) Oral Active 03/31/2018 SNF: [facility] Coumadin Tablet 2 MG 1 TAB(S) BY MOUTH DAILY ON FRI/FRI/FRI RELATED TO HEART FAILURE, UNSPECIFIED (I50.9) Oral Active 03/30/2018 SNF: [facility] Coumadin Tablet 2 MG 1 TAB(S) BY MOUTH DAILY ON FRI/FRI/FRI RELATED TO HEART FAILURE, UNSPECIFIED (I50.9) Oral Active 03/30/2018 SNF: [facility] Roxicodone Tablet 5 MG Give 1 tablet by mouth every 4 hours as needed for Pain Oral Inactive 03/30/2018 SNF: [facility] Roxicodone Tablet 5 MG Give 1 tablet by mouth every 4 hours as needed for Pain Oral Inactive 03/30/2018 SNF: [facility] Santyl Ointment 250 UNIT/GM Apply to Right planter foot topically every day shift for Wound Healing External Active 03/29/2018 SNF: [facility] Santyl Ointment 250 UNIT/GM Apply to Right planter foot topically every day shift for Wound Healing External Active 03/29/2018 SNF: [facility] Levemir FlexPen Solution Pen-injector 100 UNIT/ML Inject 10 unit subcutaneously at bedtime for ANTIDIABETICS Subcutaneous Active 03/29/2018 SNF: [facility] Levemir FlexPen Solution Pen-injector 100 UNIT/ML Inject 10 unit subcutaneously at bedtime for ANTIDIABETICS Subcutaneous Active 03/29/2018 SNF: [facility] Coumadin Tablet 1 MG 1 TAB(S) BY MOUTH EVERY EVENING EVERY TUE, SAGAR, SAT, SUN RELATED TO UNSPECIFIED ATRIAL FIBRILLATION (I48.91) Oral Active 03/28/2018 SNF: [facility] Coumadin Tablet 1 MG 1 TAB(S) BY MOUTH EVERY EVENING EVERY TUE, SAGAR, SAT, SUN RELATED TO UNSPECIFIED ATRIAL FIBRILLATION (I48.91) Oral Active 03/28/2018 SNF: [facility] HumaLOG Solution 100 UNIT/ML Inject 5 unit subcutaneously before meals related to TYPE 2 DIABETES MELLITUS WITH HYPERGLYCEMIA (E11.65) AND Inject as per sliding scale: if 150 - 200=3; 201 - 250=6; 251 - 300=9; 301 - 350=12; 351+ Call MD, subcutaneously before meals and at bedtime related to TYPE 2 DIABETES MELLITUS WITH HYPERGLYCEMIA (E11.65) Subcutaneous Inactive 03/28/2018 SNF: [facility] HumuLIN R Solution 100 UNIT/ML [...] HYPERGLYCEMIA (E11.65) Injection Active 03/28/2018 SNF: [facility] HumaLOG Solution 100 UNIT/ML Inject 5 unit subcutaneously before meals related to TYPE 2 DIABETES MELLITUS WITH HYPERGLYCEMIA (E11.65) AND Inject as per sliding scale: if 150 - 200=3; 201 - 250=6; 251 - 300=9; 301 - 350=12; 351+ Call MD, subcutaneously before meals and at bedtime related to TYPE 2 DIABETES MELLITUS WITH HYPERGLYCEMIA (E11.65) Subcutaneous Inactive 03/28/2018 SNF: [facility] HumuLIN R Solution 100 UNIT/ML [...] HYPERGLYCEMIA (E11.65) Injection Active 03/28/2018 SNF: [facility] Ampicillin Capsule 500 MG 1 CAP(S) BY MOUTH EVERY 8 HOURS FOR 10 DAYS Oral Active 03/28/2018 SNF: [facility] Aztreonam in Dextrose Solution 1 GM/50ML Use 0.5 gram intravenously every 12 hours related to CELLULITIS OF UNSPECIFIED PART OF LIMB (L03.119) for 10 Days @ 100 mL/H Intravenous Active 03/28/2018 SNF: [facility] Prograf Capsule 1 MG 2 CAP(S) BY MOUTH 2 TIMES A DAY (2CAPS=2MG) RELATED TO KIDNEY TRANSPLANT STATUS (Z94.0) Oral Active 03/28/2018 SNF: [facility] Calcitriol Capsule 0.5 MCG 1 CAP(S) BY MOUTH DAILY ON MON/WED/FRI Oral Active 03/28/2018 SNF: [facility] Ferrous Sulfate Tablet 325 (65 Fe) MG Give 1 tablet by mouth one time a day for supplementation Oral Active 03/28/2018 SNF: [facility] Furosemide Tablet 40 MG 1 TAB(S) BY MOUTH EVERY 12 HOURS Oral Active 03/28/2018 SNF: [facility] PredniSONE Tablet 5 MG Give 1 tablet by mouth one time a day for CORTICOSTEROIDS Oral Active 03/28/2018 SNF: [facility] Loratadine Tablet 10 MG Give 1 tablet by mouth one time a day for Allergy Symptoms Oral Active 03/28/2018 SNF: [facility] Potassium Tablet Give 40 mEq by mouth one time a day for supplement Oral Active 03/28/2018 SNF: [facility] HydrALAZINE HCl Tablet 50 MG Give 1 tablet by mouth three times a day related to HEART FAILURE, UNSPECIFIED (I50.9) Hold for SBP <130 Oral Active 03/28/2018 SNF: [facility] Ampicillin Capsule 500 MG 1 CAP(S) BY MOUTH EVERY 8 HOURS FOR 10 DAYS Oral Active 03/28/2018 SNF: [facility] Aztreonam in Dextrose Solution 1 GM/50ML Use 0.5 gram intravenously every 12 hours related to CELLULITIS OF UNSPECIFIED PART OF LIMB (L03.119) for 10 Days @ 100 mL/H Intravenous Active 03/28/2018 SNF: [facility] Calcitriol Capsule 0.5 MCG 1 CAP(S) BY MOUTH DAILY ON FRI/FRI/FRI Oral Active 03/28/2018 SNF: [facility] Prograf Capsule 1 MG 2 CAP(S) BY MOUTH 2 TIMES A DAY (2CAPS=2MG) RELATED TO KIDNEY TRANSPLANT STATUS (Z94.0) Oral Active 03/28/2018 SNF: [facility] Ferrous Sulfate Tablet 325 (65 Fe) MG Give 1 tablet by mouth one time a day for supplementation Oral Active 03/28/2018 SNF: [facility] Furosemide Tablet 40 MG 1 TAB(S) BY MOUTH EVERY 12 HOURS Oral Active 03/28/2018 SNF: [facility] PredniSONE Tablet 5 MG Give 1 tablet by mouth one time a day for CORTICOSTEROIDS Oral Active 03/28/2018 SNF: [facility] Loratadine Tablet 10 MG Give 1 tablet by mouth one time a day for Allergy Symptoms Oral Active 03/28/2018 SNF: [facility] Potassium Tablet Give 40 mEq by mouth one time a day for supplement Oral Active 03/28/2018 SNF: [facility] HydrALAZINE HCl Tablet 50 MG Give 1 tablet by mouth three times a day related to HEART FAILURE, UNSPECIFIED (I50.9) Hold for SBP <130 Oral Active 03/28/2018 SNF: [facility] Tylenol Tablet 325 MG Give 2 tablet by mouth one time only for PAIN for 1 Day Per Randi Lewis Oncall Oral Active 03/28/2018 SNF: [facility] Tylenol Tablet 325 MG Give 2 tablet by mouth one time only for PAIN for 1 Day Per Randi Lewis Oncall Oral Active 03/28/2018 SNF: [facility] Oxycodone-Acetaminophen Tablet 5-325 MG Give 1 tablet by mouth every 4 hours as needed for PAIN *For Percocet 10-325:Give 1 Percocet 5- 325+ Oxycodone 5mg* Oral Active 03/28/2018 SNF: [facility] HydrOXYzine HCl Tablet 25 MG 0.5 TAB(S) BY MOUTH DAILY NEEDED (0.5T=12.5MG) Oral Active 03/28/2018 SNF: [facility] Tuberculin PPD Solution Inject 0.1 ml intradermally one time only for Prophylaxis for 1 Day Adm within first 24 hours of admission. Repeat yearly. Intradermal Active 03/28/2018 SNF: [facility] Oxycodone-Acetaminophen Tablet 5-325 MG Give 1 tablet by mouth every 4 hours as needed for PAIN *For Percocet 10-325:Give 1 Percocet 5- 325+ Oxycodone 5mg* Oral Active 03/28/2018 SNF: [facility] HydrOXYzine HCl Tablet 25 MG 0.5 TAB(S) BY MOUTH DAILY NEEDED (0.5T=12.5MG) Oral Active 03/28/2018 SNF: [facility] Tuberculin PPD Solution Inject 0.1 ml intradermally one time only for Prophylaxis for 1 Day Adm within first 24 hours of admission. Repeat yearly. Intradermal Active 03/28/2018 SNF: [facility] Roxicodone Tablet 5 MG Give 1 tablet by mouth every 4 hours as needed for Pain Give with Percocet 5-325mg to equal Percocet 10-325mg Oral Active 03/27/2018 SNF: [facility] Roxicodone Tablet 5 MG Give 1 tablet by mouth every 4 hours as needed for Pain Give with Percocet 5-325mg to equal Percocet 10-325mg Oral Active 03/27/2018 SNF: [facility] Alprazolam 0.5 Mg Tablet, 0.5 Mg Oral Daily Active 03/20/2018 [facility] Gabapentin 300 Mg Capsule, 300 Mg Oral Twice A Day Active 03/20/2018 [facility] Hydralazine Hcl 25 Mg Tab, 50 Mg Oral Every 6 Hours as needed for >Vr=045 Active 03/20/2018 [facility] Insulin Lisp Protam/Lisp Human (Humalog Mix 75-25 Vial) 100 Units/Ml Ml, Subcutaneously Before Meals And At Bedtime Active 03/20/2018 [facility] Metoclopramide Hcl (Reglan) 5 Mg Tablet, 5 Mg Oral Before Meals And At Bedtime Active 03/20/2018 [facility] Metoprolol Succinate 25 Mg Tab.er.24h, 25 Mg Oral Twice A Day as needed for High Blood Pressure Active 03/20/2018 [facility] Tacrolimus 1 Mg Capsule, 1 Mg Oral Twice A Day Active 03/20/2018 [facility] Torsemide 20 Mg Tablet, Active 03/20/2018 [facility] Warfarin Sodium 2 Mg Tablet, 2 Mg Oral Daily Active 03/20/2018 [facility] Tuberculin PPD Solution Inject 0.1 ml intradermally one time only for Prophylaxis for 1 Day Adm within first 24 hours of admission. Repeat yearly. Intradermal Active 03/14/2018 SNF: [facility] Hydralazine Hcl 25 Mg Tab, 100 Mg Oral Three Times A Day Active 03/14/2018 [facility] Hydralazine Hcl 25 Mg Tab, 50 Mg Oral Three Times A Day Active [facility] 03/13/2018 [facility] Insulin Detemir 100 Unit/Ml Pen, 13 Unit Sub-Q Bedtime Active [facility] 03/13/2018 [facility] Metoprolol Succinate (Toprol Xl) 25 Mg Tab.er.24h, 25 Mg Oral Twice A Day Active [facility] 03/13/2018 [facility] Sodium Bicarbonate 650 Mg Tablet, 1300 Mg Oral Twice A Day Active [facility] 03/13/2018 [facility] Amiodarone Hcl 200 Mg Tablet, 200 Mg Oral Daily Active 01/05/2018 [facility] Metoprolol Tartrate 50 Mg Tablet, 50 Mg Oral Twice A Day Active 02/23/2017 [facility] Pioglitazone Hcl (Actos*) 15 Mg Tablet, 30 Mg Oral Daily Active 01/19/2017 [facility] Warfarin Sodium 1 Mg Tablet, 1 Mg Oral M,F Active 01/19/2017 [facility] Insulin Lisp Protam/Lisp Human (Humalog Mix 75-25 Vial) 100 Units/Ml Ml, 60 Unit Subcutaneously Daily At 1700 Active 01/14/2017 [facility] Labetalol Hcl 200 Mg Tablet, 200 Mg Oral Daily Active 01/14/2017 [facility] Cholecalciferol (Vitamin D3) (Vitamin D) 1,000 Unit Tablet, 2000 Unit Oral Daily Active 11/05/2016 [facility] Brimonidine Tartrate (Combigan Eye Drops) 5 Ml Drpette Daily Active [facility] Bumetanide 1 Mg Tablet Three Times A Day Active [facility] Calcitriol 0.25 Mcg Capsule .// Active TAKE ON MONDAYS, WEDNESDAYS, AND FRIDAYS [facility] Diphenhydramine Hcl (Benadryl) 25 Mg Capsule Bedtime as needed for Sleep Active [facility] Fe Fumarate/Fa/Mv, Min Comb#15 (Hemocyte Plus Capsule) 1 Each Capsule Twice A Day Active [facility] Ferrous Sulfate (Feosol) 325 Mg Tablet Daily Active [facility] Hydralazine Hcl 25 Mg Tab Three Times A Day Active [facility] Latanoprost 2.5 Ml Drops Bedtime Active [facility] Linezolid (Zyvox) 600 Mg Tablet Every 12 Hours Active [facility] Magnesium Oxide 400 Mg Tablet Daily Active [facility] Metoprolol Tartrate 50 Mg Tablet Twice A Day Active [facility] Oxycodone Hcl/Acetaminophen (Oxycodone-Acetaminophen 5-325) 1 Each Tablet Every 4 Hours as needed for Pain Active 1-2 tablets [facility] Potassium Chloride 20 Meq Tab.er.prt Three Times Daily With Meals Active [facility] Prednisone 5 Mg Tablet Daily Active [facility] Santyl Bedtime Active [facility] Tacrolimus (Prograf) 1 Mg Cap Twice A Day Active [facility] Tramadol Hcl (Ultram) 50 Mg Tablet Every 6 Hours Active [facility] Tresiba Daily Active [facility] Warfarin Sodium 1 Mg Tablet Daily Active [facility] [facility] Zinc Acetate/[place] (Amerigel Wound Dressing Gel) 28.3 Gm Gel..gram. Daily Active [facility] Allergies, Adverse Reactions, Alerts No Known Medication Allergies Immunizations Immunization Date Given Site Status Last Updated Comments Source tuberculin skin test; purified protein derivative solution, intradermal 03/28/2018 completed Sidra Caldwell SNF: [facility] tuberculin skin test; purified protein derivative solution, intradermal 03/28/2018 completed Sidra Caldwell SNF: [facility] pneumococcal polysaccharide vaccine, 23 valent 03/28/2018 Not Given SNF: [facility] Influenza, seasonal, injectable 01/08/2018 completed SNF: [facility] Results Order Name Results Value Reference Range Date Interpretation Comments Source Capillary blood glucose measurement by glucometer (mass/volume) 204 70 - 120 07/08/2018 [facility] Blood leukocytes automated count (number/volume) 8.76 4.8 - 10.8 07/07/2018 [facility] Blood erythrocytes automated count (number/volume) 3.41 4.3 - 5.7 07/07/2018 [facility] Blood hemoglobin measurement (moles/volume) 9.7 14.0 - 18.0 07/07/2018 [facility] Automated blood hematocrit (volume fraction) 30.7 38.2 - 49.6 07/07/2018 [facility] Automated erythrocyte mean corpuscular volume 90.0 81 - 99 07/07/2018 [facility] Automated erythrocyte mean corpuscular hemoglobin (mass per erythrocyte) 28.4 28 - 32 07/07/2018 [facility] Automated erythrocyte mean corpuscular hemoglobin concentration measurement (mass/volume) 31.6 31 - 35 07/07/2018 [facility] RDW BldCo-Rto 18.1 11.7 - 14.4 07/07/2018 [facility] Automated blood platelet count (count/volume) 269 140 - 360 07/07/2018 [facility] Automated blood segmented neutrophil count as percentage of total leukocytes 79.5 38.7 - 80.0 07/07/2018 [facility] Automated blood lymphocyte count as percentage ot total leukocytes 11.3 18.0 - 39.1 07/07/2018 [facility] Automated blood monocyte count as percentage of total leukocytes 7.4 4.4 - 11.3 07/07/2018 [facility] Automated blood eosinophil count as percentage of total leukocytes 0.5 0.0 - 6.0 07/07/2018 [facility] Automated blood basophil count as percentage of total leukocytes 0.2 0.0 - 1.0 07/07/2018 [facility] IM GRANULOCYTES % 1.1 0.0 - 1.0 07/07/2018 [facility] Automated blood neutrophil count 7.0 2.1 - 6.9 07/07/2018 [facility] Blood lymphocytes count (number/volume) 1.0 1.0 - 3.2 07/07/2018 [facility] Blood monocytes automated count (number/volume) 0.7 0.2 - 0.8 07/07/2018 [facility] Automated blood eosinophil count 0.0 0.0 - 0.4 07/07/2018 [facility] Automated blood basophil count (count/volume) 0.0 0.0 - 0.1 07/07/2018 [facility] Absolute Immature Granulocyte (auto 0.10 0 - 0.1 07/07/2018 [facility] Serum or plasma sodium measurement (moles/volume) 136 136 - 145 07/07/2018 [facility] Serum or plasma potassium measurement (moles/volume) 3.2 3.5 - 5.1 07/07/2018 [facility] Serum or plasma chloride measurement (moles/volume) 95 98 - 107 07/07/2018 [facility] Serum or plasma carbon dioxide, total measurement (moles/volume) 31 22 - 29 07/07/2018 [facility] Serum or plasma anion gap 13.2 8 - 16 07/07/2018 [facility] Serum or plasma urea nitrogen measurement (mass/volume) 63 7 - 26 07/07/2018 [facility] Serum or plasma creatinine measurement (mass/volume) 2.13 0.72 - 1.25 07/07/2018 [facility] Serum or plasma urea nitrogen/creatinine mass ratio 30 6 - 25 07/07/2018 [facility] Estimated glomerular filtration rate (GFR) determination 32 60 07/07/2018 [facility] Glucose measurement 76 74 - 118 07/07/2018 [facility] Serum or plasma calcium measurement (mass/volume) 8.7 8.4 - 10.2 07/07/2018 [facility] Prothrombin time (PT) in platelet poor plasma by coagulation assay 33.5 11.9 - 14.5 07/05/2018 [facility] INR in Platelet poor plasma by Coagulation assay 3.20 07/05/2018 [facility] Serum or plasma total bilirubin measurement (mass/volume) 0.4 0.2 - 1.2 07/05/2018 [facility] Aspartate Amino Transf (AST/SGOT) 25 5 - 34 07/05/2018 [facility] Serum or plasma alanine aminotransferase measurement (enzymatic activity/volume) 18 0 - 55 07/05/2018 [facility] Serum or plasma protein measurement (mass/volume) 5.3 6.5 - 8.1 07/05/2018 [facility] Serum or plasma albumin measurement (mass/volume) 1.5 3.5 - 5.0 07/05/2018 [facility] Plasma globulin measurement (mass/volume) 3.8 2.3 - 3.5 07/05/2018 [facility] Serum or plasma albumin/globulin mass ratio 0.4 0.8 - 2.0 07/05/2018 [facility] Serum or plasma alkaline phosphatase measurement (enzymatic activity/volume) 140 40 - 150 07/05/2018 [facility] Activated partial thromboplastin time (aPTT) in platelet poor plasma bycoagulation assay 43.4 23.8 - 35.5 06/29/2018 [facility] Differential Total Cells Counted 100 06/29/2018 [facility] Manual blood neutrophils/100 leukocytes 85 40 - 74 06/29/2018 [facility] Manual blood lymphocytes/100 leukocytes 8 19 - 48 06/29/2018 [facility] Manual blood monocytes/100 leukocytes 7 3.4 - 9.0 06/29/2018 [facility] Blood platelets count by estimate (number/volume) ADEQUATE 06/29/2018 [facility] Platelet morphology NORMAL 06/29/2018 [facility] Blood anisocytosis detection by light microscopy SLIGHT 06/29/2018 [facility] RBC morphology NORMAL 06/29/2018 [facility] Specimen source identification of body fluid PLEURAL 06/25/2018 [facility] Evaluation of color of body fluid YELLOW 06/25/2018 [facility] Determination of appearance of body fluid SL.CLOUDY 06/25/2018 [facility] Manual body fluid leukocytes count (number/volume) 158 06/25/2018 [facility] Manual body fluid erythrocytes count (number/volume) 42 06/25/2018 [facility] Manual body fluid neutrophils/100 leukocytes 78 06/25/2018 [facility] Body fluid lymphocyte count 2 06/25/2018 [facility] Body fluid monocyte count 3 06/25/2018 [facility] Body fluid other cells manual count 17 06/25/2018 [facility] Total cell count 100 06/25/2018 [facility] Body fluid protein measurement (mass/volume) 0.9 06/25/2018 [facility] Body fluid lactate dehydrogenase measurement (enzymatic activity/volume) 72 06/25/2018 [facility] Serum or plasma iron measurement (mass/volume) 13 65 - 175 06/24/2018 [facility] Serum or plasma transferrin measurement (mass/volume) < 70 174 - 364 06/24/2018 [facility] Serum or plasma ferritin measurement (mass/volume) 1897.52 21.81 - 274.66 06/24/2018 [facility] BNP Bld-mCnc 1388.0 0 - 100 06/24/2018 [facility] Blood culture NO GROWTH AFTER 5 DAYS, FINAL REPORT 06/23/2018 [facility] Stool gastrointestinal hemoglobin detection NEGATIVE NEGATIVE 06/23/2018 [facility] Urine color determination YELLOW YELLOW 06/22/2018 [facility] Urine clarity HAZY CLEAR 06/22/2018 [facility] Specific gravity of Urine by Test strip 1.015 1.010 - 1.025 06/22/2018 [facility] Urine pH measurement by automated test strip 6 5 - 7 06/22/2018 [facility] Urine leukocyte esterase detection by dipstick 1+ NEGATIVE 06/22/2018 [facility] Urine nitrite detection NEGATIVE NEGATIVE 06/22/2018 [facility] Urine protein measurement by test strip (mass/volume) NEGATIVE NEGATIVE 06/22/2018 [facility] Urine glucose detection NEGATIVE NEGATIVE 06/22/2018 [facility] Urine ketones detection by automated test strip NEGATIVE NEGATIVE 06/22/2018 [facility] Urine urobilinogen measurement by test strip (mass/volume) 0.2 0.2 - 1 06/22/2018 [facility] Urine total bilirubin measurement (mass/volume) NEGATIVE NEGATIVE 06/22/2018 [facility] Urine erythrocytes detection TRACE NEGATIVE 06/22/2018 [facility] Automated urine sediment leukocyte count by microscopy (number/high power field) >50 0 - 5 06/22/2018 [facility] Erythrocytes detection in urine sediment by light microscopy 11-20 0 - 5 06/22/2018 [facility] Bacteria detection in urine sediment by light microscopy MANY NONE 06/22/2018 [facility] Epithelial cells detection in urine sediment by light microscopy MANY NONE 06/22/2018 [facility] Yeast detection in urine sediment by light microscopy MANY NONE 06/22/2018 [facility] Serum or plasma creatine kinase measurement (enzymatic activity/volume) 9 30 - 200 06/22/2018 [facility] Serum or plasma creatine kinase MB measurement (mass/volume) 0.50 0 - 5.0 06/22/2018 [facility] Troponin I measurement by highly sensitive enzyme immunoassay 0.052 0 - 0.300 06/22/2018 [facility] Blood sugar Blood sugar 162 06/22/2018 SNF: [facility] Blood sugar Blood sugar 183 06/22/2018 SNF: [facility] Blood sugar Blood sugar 183 06/22/2018 SNF: [facility] Blood sugar Blood sugar 188 06/22/2018 SNF: [facility] Blood sugar Blood sugar 178 06/21/2018 SNF: [facility] Blood sugar Blood sugar 162 06/21/2018 SNF: [facility] Blood sugar Blood sugar 165 06/21/2018 SNF: [facility] Blood sugar Blood sugar 165 06/21/2018 SNF: [facility] Blood sugar Blood sugar 200 06/21/2018 SNF: [facility] Blood sugar Blood sugar 146 06/20/2018 SNF: [facility] Blood sugar Blood sugar 146 06/20/2018 SNF: [facility] Blood sugar Blood sugar 164 06/20/2018 SNF: [facility] Blood sugar Blood sugar 188 06/20/2018 SNF: [facility] Blood sugar Blood sugar 213 06/19/2018 SNF: [facility] Blood sugar Blood sugar 244 06/19/2018 SNF: [facility] Blood sugar Blood sugar 246 06/19/2018 SNF: [facility] Blood sugar Blood sugar 246 06/19/2018 SNF: [facility] Blood sugar Blood sugar 287 06/19/2018 SNF: [facility] Blood sugar Blood sugar 311 06/18/2018 SNF: [facility] Blood sugar Blood sugar 373 06/18/2018 SNF: [facility] Procalcitonin (PCT) level 0.35 0.00 - 0.08 06/17/2018 [facility] Serum or plasma cortisol measurement on morning peak specimen (mass/volume) 19.7 6.2 - 19.4 06/17/2018 [facility] Manual blood band neutrophils form/100 leukocytes 3 06/14/2018 [facility] Serum or plasma magnesium measurement (mass/volume) 1.5 1.3 - 2.1 06/13/2018 [facility] Manual blood eosinophil count as percentage of total leukocytes 1 0 - 7 06/12/2018 [facility] Manual blood metamyelocytes/100 leukocytes 4 0 - 0 06/12/2018 [facility] Blood toxic granules detection by light microscopy MODERATE 06/12/2018 [facility] Blood dohle body detection by light microscopy FEW 06/12/2018 [facility] Albumin (PEP) 2.8 2.9 - 4.4 06/12/2018 [facility] Serum or plasma alpha 1 globulin measurement by electrophoresis (mass/volume) 0.2 0.0 - 0.4 06/12/2018 [facility] Serum or plasma alpha 2 globulin measurement by electrophoresis (mass/volume) 0.7 0.4 - 1.0 06/12/2018 [facility] Serum or plasma beta globulin measurement by electrophoresis (mass/volume) 0.5 0.7 - 1.3 06/12/2018 [facility] Serum or plasma gamma globulin measurement by electrophoresis (mass/volume) 0.7 0.4 - 1.8 06/12/2018 [facility] Serum or plasma protein measurement (mass/volume) 4.8 6.0 - 8.5 06/12/2018 [facility] Serum globulin measurement by calculation (mass/volume) 2.0 2.2 - 3.9 06/12/2018 [facility] Serum immunoglobulin kappa light chains measurement (mass/volume) 34.2 3.3 - 19.4 06/12/2018 [facility] Serum or plasma immunoglobulin free lambda light chains measurement (mass/volume) 21.3 5.7 - 26.3 06/12/2018 [facility] Serum immunoglobulin kappa light chains/immunoglobulin lambda light chains mass ratio 1.61 0.26 - 1.65 06/12/2018 [facility] Serum or plasma protein monoclonal measurement by electrophoresis (mass/volume) Not Observed Not Observed 06/12/2018 [facility] Serum or plasma albumin/globulin mass ratio 1.4 0.7 - 1.7 06/12/2018 [facility] Protein Electrophoresis Note Comment . 06/12/2018 [facility] Manual blood myelocytes/100 leukocytes 4 0 - 0 06/11/2018 [facility] Blood promyelocytes/100 leukocytes 1 0 - 0 06/11/2018 [facility] Blood lymphocytes variant count (number/volume) 1 06/11/2018 [facility] Blood hypochromia detection by light microscopy SLIGHT 06/11/2018 [facility] Serum or plasma iron binding capacity measurement (mass/volume) 112 261 - 478 06/10/2018 [facility] Serum or plasma iron saturation measurement (mass fraction) 74 15 - 50 06/10/2018 [facility] Blood poikilocytosis detection by light microscopy SLIGHT 06/09/2018 [facility] Lactic Acid Level 17.6 4.5 - 19.8 06/08/2018 [facility] Blood microcytes detection by light microscopy SLIGHT 06/08/2018 [facility] Blood ovalocytes detection by light microscopy FEW 06/08/2018 [facility] Serum or plasma homocysteine measurement (moles/volume) 9.6 0.0 - 15.0 06/07/2018 [facility] Serum or plasma methylmalonate measurement (moles/volume) 450 06/07/2018 [facility] Fibrin D-dimer DDU measurement in platelet poor plasma (mass/volume) 383 0 - 400 06/07/2018 [facility] Fibrinogen measurement in platelet poor plasma by coagulation assay (mass/volume) 215 204 - 462 06/07/2018 [facility] Fibrin+fibrinogen fragments measurement (units/volume) in platelet poor plasma by latex agglutination <5 <5 06/07/2018 [facility] Clostridium difficile A and B toxin assay NEGATIVE NEGATIVE 06/06/2018 [facility] Phosphorus measurement 3.1 2.3 - 4.7 06/06/2018 [facility] Serum or plasma lactate dehydrogenase measurement (enzymatic activity/volume) 200 125 - 220 06/06/2018 [facility] Elliptocyte detection SLIGHT 06/06/2018 [facility] Blood cobalamin (vitamin B12) measurement (mass/volume) 361 213 - 816 06/05/2018 [facility] Serum or plasma folate measurement (mass/volume) 5.1 7.0 - 15.4 06/05/2018 [facility] Serum or plasma thyrotropin measurement by detection limit <=0.005 miu/l (units/volume) 1.760 0.350 - 4.940 06/05/2018 [facility] Urine Legionella pneumophila 1 antigen detection by immunoassay Negative Negative 06/04/2018 [facility] Arterial blood pH measurement 7.37 7.31 - 7.41 06/04/2018 [facility] pCO2 BldA 28 41 - 51 06/04/2018 [facility] pCO2 BldA 67 80 - 105 06/04/2018 [facility] Arterial blood bicarbonate measurement (moles/volume) 16 23 - 28 06/04/2018 [facility] Arterial blood base excess by calculation -9.0 -2 - 3 - 2 06/04/2018 [facility] Arterial blood oxygen saturation measurement 93.0 95 - 98 06/04/2018 [facility] FiO2 21 06/04/2018 [facility] Transitional cells detection in urine sediment by light microscopy MANY NONE 06/02/2018 [facility] Influenza virus A and B antigen identification by immunofluorescence NEGATIVE NEGATIVE 06/02/2018 [facility] Ammonia Ser-mCnc 32 31 - 123 05/23/2018 [facility] Blood sugar Blood sugar 116 04/08/2018 SNF: [facility] Blood sugar Blood sugar 116 04/08/2018 SNF: [facility] Blood sugar Blood sugar 116 04/08/2018 SNF: [facility] Blood sugar Blood sugar 116 04/08/2018 SNF: [facility] Blood sugar Blood sugar 302 04/08/2018 SNF: [facility] Blood sugar Blood sugar 302 04/08/2018 SNF: [facility] Blood sugar Blood sugar 337 04/07/2018 SNF: [facility] Blood sugar Blood sugar 127 04/07/2018 SNF: [facility] Blood sugar Blood sugar 337 04/07/2018 SNF: [facility] Blood sugar Blood sugar 127 04/07/2018 SNF: [facility] Blood sugar Blood sugar 127 04/07/2018 SNF: [facility] Blood sugar Blood sugar 127 04/07/2018 SNF: [facility] Blood sugar Blood sugar 115 04/07/2018 SNF: [facility] Blood sugar Blood sugar 115 04/07/2018 SNF: [facility] Blood sugar Blood sugar 116 04/07/2018 SNF: [facility] Blood sugar Blood sugar 116 04/07/2018 SNF: [facility] Blood sugar Blood sugar 253 04/07/2018 SNF: [facility] Blood sugar Blood sugar 253 04/07/2018 SNF: [facility] Blood sugar Blood sugar 253 04/07/2018 SNF: [facility] Blood sugar Blood sugar 253 04/07/2018 SNF: [facility] Blood sugar Blood sugar 244 04/06/2018 SNF: [facility] Blood sugar Blood sugar 244 04/06/2018 SNF: [facility] Blood sugar Blood sugar 244 04/06/2018 SNF: [facility] Blood sugar Blood sugar 244 04/06/2018 SNF: [facility] Blood sugar Blood sugar 185 04/06/2018 SNF: [facility] Blood sugar Blood sugar 185 04/06/2018 SNF: [facility] Blood sugar Blood sugar 185 04/06/2018 SNF: [facility] Blood sugar Blood sugar 185 04/06/2018 SNF: [facility] Blood sugar Blood sugar 144 04/06/2018 SNF: [facility] Blood sugar Blood sugar 144 04/06/2018 SNF: [facility] Blood sugar Blood sugar 144 04/06/2018 SNF: [facility] Blood sugar Blood sugar 144 04/06/2018 SNF: [facility] Blood sugar Blood sugar 141 04/06/2018 SNF: [facility] Blood sugar Blood sugar 141 04/06/2018 SNF: [facility] Blood sugar Blood sugar 141 04/06/2018 SNF: [facility] Blood sugar Blood sugar 141 04/06/2018 SNF: [facility] Blood sugar Blood sugar 237 04/05/2018 SNF: [facility] Blood sugar Blood sugar 237 04/05/2018 SNF: [facility] Blood sugar Blood sugar 237 04/05/2018 SNF: [facility] Blood sugar Blood sugar 237 04/05/2018 SNF: [facility] Blood sugar Blood sugar 212 04/05/2018 SNF: [facility] Blood sugar Blood sugar 212 04/05/2018 SNF: [facility] Blood sugar Blood sugar 143 04/05/2018 SNF: [facility] Blood sugar Blood sugar 143 04/05/2018 SNF: [facility] Blood sugar Blood sugar 242 04/05/2018 SNF: [facility] Blood sugar Blood sugar 242 04/05/2018 SNF: [facility] Blood sugar Blood sugar 242 04/05/2018 SNF: [facility] Blood sugar Blood sugar 242 04/05/2018 SNF: [facility] Blood sugar Blood sugar 169 04/04/2018 SNF: [facility] Blood sugar Blood sugar 169 04/04/2018 SNF: [facility] Blood sugar Blood sugar 169 04/04/2018 [facility] [facility] Blood sugar Blood sugar 169 04/04/2018 SNF: [facility] Blood sugar Blood sugar 120 04/04/2018 SNF: [facility] Blood sugar Blood sugar 120 04/04/2018 SNF: [facility] Blood sugar Blood sugar 167 04/04/2018 SNF: [facility] Blood sugar Blood sugar 167 04/04/2018 SNF: [facility] Blood sugar Blood sugar 167 04/04/2018 SNF: [facility] Blood sugar Blood sugar 167 04/04/2018 SNF: [facility] Blood sugar Blood sugar 224 04/04/2018 SNF: [facility] Blood sugar Blood sugar 224 04/04/2018 SNF: [facility] Blood sugar Blood sugar 224 04/04/2018 SNF: [facility] Blood sugar Blood sugar 224 04/04/2018 SNF: [facility] Blood sugar Blood sugar 152 04/04/2018 SNF: [facility] Blood sugar Blood sugar 152 04/04/2018 SNF: [facility] Blood sugar Blood sugar 152 04/03/2018 SNF: [facility] Blood sugar Blood sugar 152 04/03/2018 SNF: [facility] Blood sugar Blood sugar 240 04/03/2018 SNF: [facility] Blood sugar Blood sugar 240 04/03/2018 SNF: [facility] Blood sugar Blood sugar 240 04/03/2018 SNF: [facility] Blood sugar Blood sugar 240 04/03/2018 SNF: [facility] Blood sugar Blood sugar 245 04/03/2018 SNF: [facility] Blood sugar Blood sugar 245 04/03/2018 SNF: [facility] Blood sugar Blood sugar 240 04/03/2018 SNF: [facility] Blood sugar Blood sugar 240 04/03/2018 SNF: [facility] Blood sugar Blood sugar 240 04/03/2018 SNF: [facility] Blood sugar Blood sugar 240 04/03/2018 SNF: [facility] Blood sugar Blood sugar 154 04/02/2018 SNF: [facility] Blood sugar Blood sugar 154 04/02/2018 SNF: [facility] Blood sugar Blood sugar 154 04/02/2018 SNF: [facility] Blood sugar Blood sugar 154 04/02/2018 SNF: [facility] Blood sugar Blood sugar 187 04/02/2018 SNF: [facility] Blood sugar Blood sugar 187 04/02/2018 SNF: [facility] Blood sugar Blood sugar 256 04/02/2018 SNF: [facility] Blood sugar Blood sugar 256 04/02/2018 SNF: [facility] Blood sugar Blood sugar 256 04/02/2018 SNF: [facility] Blood sugar Blood sugar 256 04/02/2018 SNF: [facility] Blood sugar Blood sugar 198 04/01/2018 SNF: [facility] Blood sugar Blood sugar 198 04/01/2018 SNF: [facility] Blood sugar Blood sugar 130 04/01/2018 SNF: [facility] Blood sugar Blood sugar 130 04/01/2018 SNF: [facility] Blood sugar Blood sugar 130 04/01/2018 SNF: [facility] Blood sugar Blood sugar 130 04/01/2018 SNF: [facility] Blood sugar Blood sugar 113 04/01/2018 SNF: [facility] Blood sugar Blood sugar 113 04/01/2018 SNF: [facility] Blood sugar Blood sugar 113 04/01/2018 SNF: [facility] Blood sugar Blood sugar 113 04/01/2018 SNF: [facility] Blood sugar Blood sugar 365 04/01/2018 SNF: [facility] Blood sugar Blood sugar 365 04/01/2018 SNF: [facility] Blood sugar Blood sugar 365 04/01/2018 SNF: [facility] Blood sugar Blood sugar 365 04/01/2018 SNF: [facility] Blood sugar Blood sugar 209 03/31/2018 SNF: [facility] Blood sugar Blood sugar 209 03/31/2018 SNF: [facility] Blood sugar Blood sugar 209 03/31/2018 SNF: [facility] Blood sugar Blood sugar 209 03/31/2018 SNF: [facility] Blood sugar Blood sugar 187 03/31/2018 SNF: [facility] Blood sugar Blood sugar 187 03/31/2018 SNF: [facility] Blood sugar Blood sugar 120 03/31/2018 SNF: [facility] Blood sugar Blood sugar 120 03/31/2018 SNF: [facility] Blood sugar Blood sugar 315 03/31/2018 SNF: [facility] Blood sugar Blood sugar 315 03/31/2018 SNF: [facility] Blood sugar Blood sugar 315 03/31/2018 SNF: [facility] Blood sugar Blood sugar 315 03/31/2018 SNF: [facility] Blood sugar Blood sugar 348 03/30/2018 SNF: [facility] Blood sugar Blood sugar 348 03/30/2018 SNF: [facility] Blood sugar Blood sugar 348 03/30/2018 SNF: [facility] Blood sugar Blood sugar 348 03/30/2018 SNF: [facility] Blood sugar Blood sugar 178 03/30/2018 SNF: [facility] Blood sugar Blood sugar 178 03/30/2018 SNF: [facility] Blood sugar Blood sugar 178 03/30/2018 SNF: [facility] Blood sugar Blood sugar 178 03/30/2018 SNF: [facility] Blood sugar Blood sugar 206 03/30/2018 SNF: [facility] Blood sugar Blood sugar 206 03/30/2018 SNF: [facility] Blood sugar Blood sugar 163 03/30/2018 SNF: [facility] Blood sugar Blood sugar 163 03/30/2018 SNF: [facility] Blood sugar Blood sugar 163 03/30/2018 SNF: [facility] Blood sugar Blood sugar 163 03/30/2018 SNF: [facility] Blood sugar Blood sugar 206 03/29/2018 SNF: [facility] Blood sugar Blood sugar 206 03/29/2018 SNF: [facility] Blood sugar Blood sugar 206 03/29/2018 SNF: [facility] Blood sugar Blood sugar 206 03/29/2018 SNF: [facility] Blood sugar Blood sugar 274 03/29/2018 SNF: [facility] Blood sugar Blood sugar 274 03/29/2018 SNF: [facility] Blood sugar Blood sugar 155 03/29/2018 SNF: [facility] Blood sugar Blood sugar 155 03/29/2018 SNF: [facility] Blood sugar Blood sugar 155 03/29/2018 SNF: [facility] Blood sugar Blood sugar 155 03/29/2018 SNF: [facility] Blood sugar Blood sugar 213 03/29/2018 SNF: [facility] Blood sugar Blood sugar 213 03/29/2018 SNF: [facility] Blood sugar Blood sugar 213 03/29/2018 SNF: [facility] Blood sugar Blood sugar 213 03/29/2018 SNF: [facility] Blood sugar Blood sugar 164 03/28/2018 SNF: [facility] Blood sugar Blood sugar 164 03/28/2018 SNF: [facility] Blood sugar Blood sugar 164 03/28/2018 SNF: [facility] Blood sugar Blood sugar 164 03/28/2018 SNF: [facility] Blood sugar Blood sugar 245 03/28/2018 SNF: [facility] Blood sugar Blood sugar 245 03/28/2018 SNF: [facility] Blood nucleated erythrocytes count (number/volume) 2 03/14/2018 [facility] Erythrocyte sedimentation rate by Westergren method 28 0 - 13 02/23/2018 [facility] Hemoglobin A1c Percent 8.1 4.0 - 7.0 02/23/2018 [facility] Serum or plasma triglyceride measurement (mass/volume) 135 0 - 149 02/23/2018 [facility] Serum or plasma cholesterol measurement (mass/volume) 153 0 - 199 02/23/2018 [facility] Serum or plasma cholesterol in LDL measurement (mass/volume) 84 60 - 130 02/23/2018 [facility] Serum or plasma cholesterol in HDL measurement (mass/volume) 42 40 - 60 02/23/2018 [facility] Serum or plasma total cholesterol/cholesterol in HDL mass ratio 3.6 3.9 - 4.7 02/23/2018 [facility] Bacteria identification in wound by culture Organism: PSEUDOMONAS AERUGINOSA 02/23/2018 [facility] Serum or plasma uric acid measurement (mass/volume) 10.6 4.8 - 8.0 01/05/2018 [facility] Bacterial urine culture Urine Culture [facility] Pathology Reports No Data Provided for This Section Diagnostic Reports No Data Provided for This Section Consultation Notes No Data Provided for This Section Discharge Summaries No Data Provided for This Section History and Physicals No Data Provided for This Section Vital Signs Vital Sign Value Date Comments Source Respitory Rate 17 06/22/2018 SNF: [facility] Systolic (mm Hg) 94 06/22/2018 SNF: [facility] Diastolic (mm Hg) 53 06/22/2018 SNF: [facility] Temperature Oral (F) 97.5 F 06/22/2018 SNF: [facility] Heart Rate 86 {beats}/min 06/22/2018 SNF: [facility] Systolic (mm Hg) 94 06/22/2018 SNF: [facility] Diastolic (mm Hg) 53 06/22/2018 SNF: [facility] Heart Rate 84 {beats}/min 06/22/2018 SNF: [facility] Respitory Rate 18 06/22/2018 SNF: [facility] Systolic (mm Hg) 135 06/22/2018 SNF: [facility] Diastolic (mm Hg) 73 06/22/2018 SNF: [facility] Temperature Oral (F) 97 F 06/22/2018 SNF: [facility] Heart Rate 68 {beats}/min 06/22/2018 SNF: [facility] Systolic (mm Hg) 135 06/22/2018 SNF: [facility] Diastolic (mm Hg) 78 06/22/2018 SNF: [facility] Heart Rate 68 {beats}/min 06/22/2018 SNF: [facility] Systolic (mm Hg) 135 06/22/2018 [facility] Diastolic (mm Hg) 78 06/22/2018 SNF: [facility] Heart Rate 68 {beats}/min 06/22/2018 SNF: [facility] Respitory Rate 18 06/22/2018 SNF: [facility] Systolic (mm Hg) 139 06/22/2018 SNF: [facility] Diastolic (mm Hg) 76 06/22/2018 SNF: [facility] Temperature Oral (F) 97.7 F 06/22/2018 SNF: [facility] Heart Rate 75 {beats}/min 06/22/2018 SNF: [facility] Systolic (mm Hg) 132 06/21/2018 SNF: [facility] Diastolic (mm Hg) 68 06/21/2018 SNF: [facility] Heart Rate 80 {beats}/min 06/21/2018 SNF: [facility] Systolic (mm Hg) 132 06/21/2018 SNF: [facility] Diastolic (mm Hg) 68 06/21/2018 SNF: [facility] Heart Rate 80 {beats}/min 06/21/2018 SNF: [facility] Respitory Rate 18 06/21/2018 SNF: [facility] Systolic (mm Hg) 138 06/21/2018 SNF: [facility] Diastolic (mm Hg) 76 06/21/2018 SNF: [facility] Temperature Oral (F) 97.7 F 06/21/2018 SNF: [facility] Heart Rate 73 {beats}/min 06/21/2018 SNF: [facility] Respitory Rate 18 06/21/2018 [facility] Systolic (mm Hg) 114 06/21/2018 [facility] Diastolic (mm Hg) 52 06/21/2018 SNF: [facility] Temperature Oral (F) 97.8 F 06/21/2018 SNF: [facility] Heart Rate 81 {beats}/min 06/21/2018 [facility] Systolic (mm Hg) 135 06/21/2018 [facility]: [facility] Diastolic (mm Hg) 77 06/21/2018 SNF: [facility] Heart Rate 80 {beats}/min 06/21/2018 [facility] Systolic (mm Hg) 135 06/21/2018 [facility] Diastolic (mm Hg) 77 06/21/2018 SNF: [facility] Heart Rate 68 {beats}/min 06/21/2018 [facility]: [facility] Respitory Rate 18 06/20/2018 SN[facility]: [facility] Systolic (mm Hg) 137 06/20/2018 [facility]: [facility] Diastolic (mm Hg) 76 06/20/2018 SNF: [facility] Temperature Oral (F) 97.9 F 06/20/2018 SNF: [facility] Heart Rate 73 {beats}/min 06/20/2018 [facility]: [facility] Systolic (mm Hg) 130 06/20/2018 [facility]: [facility] Diastolic (mm Hg) 86 06/20/2018 SNF: [facility] Heart Rate 75 {beats}/min 06/20/2018 SN[facility]: [facility] Respitory Rate 18 06[facility]20/2018 [facility]: [facility] Systolic (mm Hg) 134 06/20/2018 [facility]: [facility] Diastolic (mm Hg) 62 06/20/2018 SNF: [facility] Temperature Oral (F) 98.1 F 06/20/2018 SNF: [facility] Heart Rate 76 {beats}/min 06/20/2018 SNF: [facility] Systolic (mm Hg) 130 06/20/2018 SNF: [facility] Diastolic (mm Hg) 86 06/20/2018 SNF: [facility] Heart Rate 75 {beats}/min 06/20/2018 SNF: [facility] Respitory Rate 18 06/20/2018 SNF: [facility] Systolic (mm Hg) 125 06/20/2018 SNF: [facility] Diastolic (mm Hg) 65 06/20/2018 SNF: [facility] Temperature Oral (F) 97.5 F 06/20/2018 SNF: [facility] Heart Rate 90 {beats}/min 06/20/2018 SNF: [facility] Respitory Rate 18 06/20/2018 SNF: [facility] Systolic (mm Hg) 119 06/20/2018 SNF: [facility] Diastolic (mm Hg) 69 06/20/2018 SNF: [facility] Temperature Oral (F) 97.3 F 06/20/2018 SNF: [facility] Heart Rate 92 {beats}/min 06/20/2018 SNF: [facility] Systolic (mm Hg) 125 06/20/2018 SNF: [facility] Diastolic (mm Hg) 69 06/20/2018 SNF: [facility] Heart Rate 104 {beats}/min 06/20/2018 SNF: [facility] Systolic (mm Hg) 125 06/20/2018 SNF: [facility] Diastolic (mm Hg) 69 06/20/2018 SNF: [facility] Heart Rate 104 {beats}/min 06/20/2018 SNF: [facility] Respitory Rate 18 06/19/2018 [facility]: [facility] Systolic (mm Hg) 157 06/19/2018 SNF: [facility] Diastolic (mm Hg) 84 06/19/2018 SNF: [facility] Temperature Oral (F) 97.6 F 06/19/2018 SNF: [facility] Heart Rate 75 {beats}/min 06/19/2018 SNF: [facility] Systolic (mm Hg) 157 06/19/2018 [facility]: [facility] Diastolic (mm Hg) 84 06/19/2018 [facility] Heart Rate 75 {beats}/min 06/19/2018 [facility]: [facility] Systolic (mm Hg) 157 06/19/2018 SN[facility]: [facility] Diastolic (mm Hg) 84 06/19/2018 [facility]: [facility] Heart Rate 75 {beats}/min 06/19/2018 [facility]: [facility] Respitory Rate 18 06/19/2018 [facility]: [facility] Systolic (mm Hg) 100 06/19/2018 [facility]: [facility] Diastolic (mm Hg) 64 06/19/2018 [facility]: [facility] Temperature Oral (F) 98 F 06/19/2018 SN[facility]: [facility] Heart Rate 90 {beats}/min 06/19/2018 SN[facility]: [facility] Respitory Rate 18 06/19/2018 [facility]: [facility] Systolic (mm Hg) 113 06/19/2018 [facility]: [facility] Diastolic (mm Hg) 81 06/19/2018 SNF: [facility] Temperature Oral (F) 97.3 F 06/19/2018 SNF: [facility] Heart Rate 89 {beats}/min 06/19/2018 [facility]: [facility] Systolic (mm Hg) 159 06/19/2018 [facility]: [facility] Diastolic (mm Hg) 74 06/19/2018 [facility]: [facility] Heart Rate 80 {beats}/min 06/19/2018 [facility]: [facility] Systolic (mm Hg) 159 06/19/2018 SN[facility]: [facility] Diastolic (mm Hg) 74 06/19/2018 [facility]: [facility] Heart Rate 80 {beats}/min 06/19/2018 SN[facility]: [facility] Respitory Rate 17 06/18/2018 SN[facility]: [facility] Systolic (mm Hg) 112 06/18/2018 [facility]: [facility] Diastolic (mm Hg) 62 06/18/2018 SNF: [facility] Temperature Oral (F) 98.5 F 06/18/2018 SNF: [facility] Heart Rate 96 {beats}/min 06/18/2018 SNF: [facility] [place] Systolic (mm Hg) 112 06/18/2018 SNF: [facility] Diastolic (mm Hg) 62 06/18/2018 SNF: [facility] Heart Rate 96 {beats}/min 06/18/2018 SNF: [facility] Systolic (mm Hg) 110 06/18/2018 SNF: [facility] Diastolic (mm Hg) 54 06/18/2018 SNF: [facility] Heart Rate 98 {beats}/min 06/18/2018 SNF: [facility] Weight 195.8 06/18/2018 SNF: [facility] Height 67 06/18/2018 SNF: [facility] Respitory Rate 18 06/18/2018 SNF: [facility] Systolic (mm Hg) 108 06/18/2018 SNF: [facility] Diastolic (mm Hg) 52 06/18/2018 SNF: [facility] Temperature Oral (F) 98.6 F 06/18/2018 SNF: [facility] Heart Rate 99 {beats}/min 06/18/2018 SNF: [facility] Systolic (mm Hg) 104 06/18/2018 SNF: [facility] Diastolic (mm Hg) 63 06/18/2018 SNF: [facility] Heart Rate 100 {beats}/min 06/18/2018 SNF: [facility] Systolic (mm Hg) 104 06/17/2018 SNF: [facility] Diastolic (mm Hg) 63 06/17/2018 SNF: [facility] Temperature Oral (F) 97.8 F 06/17/2018 SNF: [facility] Respitory Rate 19 06/17/2018 SNF: [facility] Heart Rate 100 {beats}/min 06/17/2018 SNF: [facility] Respitory Rate 18 04/08/2018 SNF: [facility] Systolic (mm Hg) 136 04/08/2018 SNF: [facility] Diastolic (mm Hg) 72 04/08/2018 SNF: [facility] Temperature Oral (F) 97.9 F 04/08/2018 SNF: [facility] Heart Rate 88 {beats}/min 04/08/2018 SNF: [facility] Respitory Rate 18 04/08/2018 SNF: [facility] Systolic (mm Hg) 136 04/08/2018 SNF: [facility] [place] Diastolic (mm Hg) 72 04/08/2018 SNF: [facility] Temperature Oral (F) 97.9 F 04/08/2018 SNF: [facility] Heart Rate 88 {beats}/min 04/08/2018 SNF: [facility] Weight 189 04/08/2018 SNF: [facility] Weight 189 04/08/2018 SNF: [facility] Respitory Rate 18 04/08/2018 SNF: [facility] Systolic (mm Hg) 146 04/08/2018 SNF: [facility] Diastolic (mm Hg) 59 04/08/2018 SNF: [facility] Temperature Oral (F) 98.6 F 04/08/2018 SNF: [facility] Heart Rate 89 {beats}/min 04/08/2018 SNF: [facility] Respitory Rate 18 04/08/2018 SNF: [facility] Systolic (mm Hg) 146 04/08/2018 SNF: [facility] Diastolic (mm Hg) 59 04/08/2018 SNF: [facility] Temperature Oral (F) 98.6 F 04/08/2018 SNF: [facility] Heart Rate 89 {beats}/min 04/08/2018 [facility] Respitory Rate 18 04/08/2018 SNF: [facility] [place] Systolic (mm Hg) 148 04/08/2018 SNF: [facility] Diastolic (mm Hg) 60 04/08/2018 SNF: [facility] Temperature Oral (F) 96.8 F 04/08/2018 SNF: [facility] Heart Rate 80 {beats}/min 04/08/2018 SNF: [facility] [place] Respitory Rate 18 04/08/2018 SNF: [facility] [place] Systolic (mm Hg) 148 04/08/2018 SNF: [facility] [place] Diastolic (mm Hg) 60 04/08/2018 SNF: [facility] Temperature Oral (F) 96.8 F 04/08/2018 SNF: [facility] Heart Rate 80 {beats}/min 04/08/2018 SNF: [facility] Respitory Rate 18 04/07/2018 SNF: [facility] Systolic (mm Hg) 148 04/07/2018 SNF: [facility] Diastolic (mm Hg) 60 04/07/2018 SNF: [facility] Temperature Oral (F) 96.8 F 04/07/2018 SNF: [facility] Heart Rate 80 {beats}/min 04/07/2018 SNF: [facility] Respitory Rate 18 04/07/2018 SNF: [facility] Systolic (mm Hg) 148 04/07/2018 SNF: [facility] Diastolic (mm Hg) 60 04/07/2018 SNF: [facility] Temperature Oral (F) 96.8 F 04/07/2018 SNF: [facility] Heart Rate 80 {beats}/min 04/07/2018 SNF: [facility] Respitory Rate 18 04/07/2018 SNF: [facility] Systolic (mm Hg) 151 04/07/2018 SNF: [facility] Diastolic (mm Hg) 59 04/07/2018 SNF: [facility] Temperature Oral (F) 96.4 F 04/07/2018 SNF: [facility] Heart Rate 82 {beats}/min 04/07/2018 SNF: [facility] Respitory Rate 18 04/07/2018 SNF: [facility] Systolic (mm Hg) 151 04/07/2018 SNF: [facility] Diastolic (mm Hg) 59 04/07/2018 SNF: [facility] Temperature Oral (F) 96.4 F 04/07/2018 SNF: [facility] [facility] Heart Rate 82 {beats}/min 04/07/2018 [facility] Resp[facility] Rate 18 04/07/2018 [facility] Systolic (mm Hg) 128 04/07/2018 [facility] Diastolic (mm Hg) 66 04[facility]07/2018 [facility] Temperature Oral (F) 98 F 04/07/2018 [facility] Heart Rate 72 {beats}/min 04/07/2018 [facility] Respitory Rate 18 04/07/2018 [facility] Systolic (mm Hg) 128 04/07/2018 [facility] Diastolic (mm Hg) 66 04/07/2018 [facility] Temperature Oral (F) 98 F 04/07/2018 [facility] Heart Rate 72 {beats}/min 04/07/2018 [facility] Respitory Rate 18 04[facility]06/2018 [facility] Systolic (mm Hg) 125 04/06/2018 [facility] Diastolic (mm Hg) 74 04/06/2018 [facility] Temperature Oral (F) 97.8 F 04/06/2018 SNF: [facility] Heart Rate 73 {beats}/min 04/06/2018 [facility]: [facility] Respitory Rate 18 04/06/2018 [facility] Systolic (mm Hg) 125 04/06/2018 [facility]: [facility] Diastolic (mm Hg) 74 04/06/2018 [facility]: [facility] Temperature Oral (F) 97.8 F 04/06/2018 [facility]: [facility] Heart Rate 73 {beats}/min 04/06/2018 [facility]: [facility] Respitory Rate 18 04[facility]06/2018 [facility] Systolic (mm Hg) 129 04/06/2018 [facility] Diastolic (mm Hg) 83 04/06/2018 SNF: [facility] Temperature Oral (F) 98.3 F 04/06/2018 [facility] Heart Rate 66 {beats}/min 04/06/2018 [facility]: [facility] Respitory Rate 18 04[facility]06/2018 [facility]: [facility] Systolic (mm Hg) 129 04/06/2018 SN[facility]: [facility] Diastolic (mm Hg) 83 04/06/2018 [facility]: [facility] Temperature Oral (F) 98.3 F 04/06/2018 [facility]: [facility] Heart Rate 66 {beats}/min 04/06/2018 SN[facility]: [facility] Respitory Rate 17 04/06/2018 [facility] Systolic (mm Hg) 132 04/06/2018 [facility] Diastolic (mm Hg) 74 04/06/2018 [facility]: [facility] Temperature Oral (F) 98.8 F 04/06/2018 SNF: [facility] Heart Rate 70 {beats}/min 04/06/2018 [facility]: [facility] Respitory Rate 17 04/06/2018 [facility] Systolic (mm Hg) 132 04/06/2018 SN[facility]: [facility] Diastolic (mm Hg) 74 04/06/2018 SNF: [facility] Temperature Oral (F) 98.8 F 04/06/2018 SNF: [facility] Heart Rate 70 {beats}/min 04/06/2018 [facility]: [facility] Respitory Rate 17 04/06/2018 [facility] Systolic (mm Hg) 132 04/06/2018 [facility]: [facility] Diastolic (mm Hg) 74 04/06/2018 [facility]: [facility] Temperature Oral (F) 98.8 F 04/06/2018 [facility]: [facility] Heart Rate 70 {beats}/min 04/06/2018 [facility]: [facility] Respitory Rate 17 04/06/2018 [facility]: [facility] Systolic (mm Hg) 132 04/06/2018 [facility] ([facility]) 74 04/06/2018 SNF: [facility] Temperature Oral (F) 98.8 F 04/06/2018 SNF: [facility] Heart Rate 70 {beats}/min 04/06/2018 SNF: [facility] [place] Respitory Rate 18 04/05/2018 SNF: [facility] Systolic (mm Hg) 138 04/05/2018 SNF: [facility] [place] Diastolic (mm Hg) 74 04/05/2018 SNF: [facility] Temperature Oral (F) 98.1 F 04/05/2018 SNF: [facility] Heart Rate 88 {beats}/min 04/05/2018 SNF: [facility] Respitory Rate 18 04/05/2018 SNF: [facility] Systolic (mm Hg) 138 04/05/2018 SNF: [facility] Diastolic (mm Hg) 74 04/05/2018 SNF: [facility] Temperature Oral (F) 98.1 F 04/05/2018 SNF: [facility] Heart Rate 88 {beats}/min 04/05/2018 SNF: [facility] [place] Respitory Rate 18 04/05/2018 SNF: [facility] [place] Systolic (mm Hg) 147 04/05/2018 SNF: [facility] [place] Diastolic (mm Hg) 65 04/05/2018 SNF: [facility] Temperature Oral (F) 97.5 F 04/05/2018 SNF: [facility] Heart Rate 87 {beats}/min 04/05/2018 SNF: [facility] Respitory Rate 18 04/05/2018 SNF: [facility] Systolic (mm Hg) 147 04/05/2018 SNF: [facility] [place] Diastolic (mm Hg) 65 04/05/2018 SNF: [facility] Temperature Oral (F) 97.5 F 04/05/2018 SNF: [facility] Heart Rate 87 {beats}/min 04/05/2018 SNF: [facility] Respitory Rate 17 04/05/2018 SNF: [facility] Systolic (mm Hg) 120 04/05/2018 SNF: [facility] Diastolic (mm Hg) 72 04/05/2018 SNF: [facility] Temperature Oral (F) 98.8 F 04/05/2018 SNF: [facility] Heart Rate 65 {beats}/min 04/05/2018 SNF: [facility] [place] Respitory Rate 17 04/05/2018 [facility]: [facility] Systolic (mm Hg) 120 04/05/2018 SNF: [facility] [place] Diastolic (mm Hg) 72 04/05/2018 SNF: [facility] Temperature Oral (F) 98.8 F 04/05/2018 SNF: [facility] Heart Rate 65 {beats}/min 04/05/2018 SNF: [facility] Respitory Rate 17 04/05/2018 SNF: [facility] Systolic (mm Hg) 120 04/05/2018 SNF: [facility] Diastolic (mm Hg) 72 04/05/2018 SNF: [facility] Temperature Oral (F) 98.8 F 04/05/2018 SNF: [facility] Heart Rate 65 {beats}/min 04/05/2018 SNF: [facility] Respitory Rate 17 04/05/2018 SNF: [facility] Systolic (mm Hg) 120 04/05/2018 SNF: [facility] Diastolic (mm Hg) 72 04/05/2018 SNF: [facility] Temperature Oral (F) 98.8 F 04/05/2018 SNF: [facility] Heart Rate 65 {beats}/min 04/05/2018 [facility] Resp[facility] Rate 18 04[facility]04/2018 [facility] Systolic (mm Hg) 125 04/04/2018 SNF: [facility] [place] Diastolic (mm Hg) 76 04/04/2018 SNF: [facility] Temperature Oral (F) 97.4 F 04/04/2018 SNF: [facility] Heart Rate 78 {beats}/min 04/04/2018 [facility]: [facility] Respitory Rate 18 04/04/2018 SNF: [facility] Systolic (mm Hg) 125 04/04/2018 SNF: [facility] Diastolic (mm Hg) 76 04/04/2018 SNF: [facility] Temperature Oral (F) 97.4 F 04/04/2018 SNF: [facility] Heart Rate 78 {beats}/min 04/04/2018 SNF: [facility] Respitory Rate 18 04/04/2018 SNF: [facility] Systolic (mm Hg) 129 04/04/2018 SNF: [facility] Diastolic (mm Hg) 74 04/04/2018 SNF: [facility] Temperature Oral (F) 97.5 F 04/04/2018 SNF: [facility] Heart Rate 80 {beats}/min 04/04/2018 SNF: [facility] Respitory Rate 18 04/04/2018 SNF: [facility] Systolic (mm Hg) 129 04/04/2018 SNF: [facility] Diastolic (mm Hg) 74 04/04/2018 SNF: [facility] Temperature Oral (F) 97.5 F 04/04/2018 SNF: [facility] Heart Rate 80 {beats}/min 04/04/2018 SNF: [facility] Respitory Rate 17 04/04/2018 SNF: [facility] Systolic (mm Hg) 140 04/04/2018 SNF: [facility] Diastolic (mm Hg) 69 04/04/2018 SNF: [facility] Temperature Oral (F) 98.3 F 04/04/2018 SNF: [facility] Heart Rate 85 {beats}/min 04/04/2018 SNF: [facility] Respitory Rate 17 04/04/2018 SNF: [facility] Systolic (mm Hg) 140 04/04/2018 SNF: [facility] Diastolic (mm Hg) 69 04/04/2018 SNF: [facility] Temperature Oral (F) 98.3 F 04/04/2018 SNF: [facility] Heart Rate 85 {beats}/min 04/04/2018 [facility]: [facility] Respitory Rate 17 04[facility]04/2018 [facility] Systolic (mm Hg) 159 04/04/2018 [facility]: [facility] Diastolic (mm Hg) 68 04/04/2018 [facility]: [facility] Temperature Oral (F) 98.6 F 04/04/2018 SN[facility]: [facility] Heart Rate 85 {beats}/min 04/04/2018 SN[facility]: [facility] Respitory Rate 17 04/03/2018 SN[facility]: [facility] [place] Systolic (mm Hg) 159 04/03/2018 [facility] Diastolic (mm Hg) 68 04/03/2018 SN[facility]: [facility] Temperature Oral (F) 98.6 F 04/03/2018 [facility]: [facility] Heart Rate 85 {beats}/min 04/03/2018 [facility]: [facility] Heart Rate 62 {beats}/min 04/03/2018 SNF: [facility] Heart Rate 62 {beats}/min 04/03/2018 SN[facility]: [facility] Respitory Rate 20 04/03/2018 [facility] Systolic (mm Hg) 141 04/03/2018 SN[facility]: [facility] Diastolic (mm Hg) 78 04/03/2018 [facility]: [facility] Temperature Oral (F) 97.9 F 04/03/2018 SNF: [facility] Heart Rate 79 {beats}/min 04/03/2018 [facility]: [facility] Respitory Rate 20 04/03/2018 [facility] Systolic (mm Hg) 141 04/03/2018 [facility]: [facility] [place] Diastolic (mm Hg) 78 04/03/2018 [facility]: [facility] Temperature Oral (F) 97.9 F 04/03/2018 [facility]: [facility] Heart Rate 79 {beats}/min 04/03/2018 [facility] Respitory Rate 20 04/02/2018 [facility]: [facility] Systolic (mm Hg) 126 04/02/2018 SNF: [facility] Diastolic (mm Hg) 73 04/02/2018 SNF: [facility] Temperature Oral (F) 98.2 F 04/02/2018 SNF: [facility] Heart Rate 64 {beats}/min 04/02/2018 SNF: [facility] Respitory Rate 20 04/02/2018 SNF: [facility] Systolic (mm Hg) 126 04/02/2018 SNF: [facility] Diastolic (mm Hg) 73 04/02/2018 SNF: [facility] Temperature Oral (F) 98.2 F 04/02/2018 SNF: [facility] Heart Rate 64 {beats}/min 04/02/2018 SNF: [facility] Respitory Rate 20 04/02/2018 SNF: [facility] Systolic (mm Hg) 118 04/02/2018 SNF: [facility] Diastolic (mm Hg) 65 04/02/2018 SNF: [facility] Temperature Oral (F) 97.8 F 04/02/2018 SNF: [facility] Heart Rate 65 {beats}/min 04/02/2018 SNF: [facility] Respitory Rate 20 04/02/2018 SNF: [facility] Systolic (mm Hg) 118 04/02/2018 SNF: [facility] Diastolic (mm Hg) 65 04/02/2018 SNF: [facility] Temperature Oral (F) 97.8 F 04/02/2018 SNF: [facility] Heart Rate 65 {beats}/min 04/02/2018 SNF: [facility] Respitory Rate 20 04/01/2018 SNF: [facility] Temperature Oral (F) 97.9 F 04/01/2018 SNF: [facility] Respitory Rate 20 04/01/2018 SNF: [facility] Temperature Oral (F) 97.9 F 04/01/2018 SNF: [facility] Weight 191 04/01/2018 SNF: [facility] Weight 191 04/01/2018 SNF: [facility] Respitory Rate 18 04/01/2018 SNF: [facility] Systolic (mm Hg) 122 04/01/2018 [facility] Diastolic (mm Hg) 70 04/01/2018 [facility]: [facility] Temperature Oral (F) 97.8 F 04/01/2018 [facility]: [facility] Heart Rate 70 {beats}/min 04/01/2018 [facility]: [facility] Respitory Rate 18 04/01/2018 [facility] Systolic (mm Hg) 122 04/01/2018 [facility] [place] Diastolic (mm Hg) 70 04/01/2018 [facility]: [facility] Temperature Oral (F) 97.8 F 04/01/2018 SNF: [facility] Heart Rate 70 {beats}/min 04/01/2018 SN[facility]: [facility] Respitory Rate 18 04/01/2018 SN[facility]: [facility] Systolic (mm Hg) 122 04/01/2018 SN[facility]: [facility] Diastolic (mm Hg) 70 04/01/2018 SNF: [facility] Temperature Oral (F) 97.8 F 04/01/2018 SNF: [facility] Heart Rate 70 {beats}/min 04/01/2018 SN[facility]: [facility] Respitory Rate 18 04/01/2018 SN[facility]: [facility] Systolic (mm Hg) 122 04/01/2018 [facility]: [facility] Diastolic (mm Hg) 70 04/01/2018 SNF: [facility] Temperature Oral (F) 97.8 F 04/01/2018 SNF: [facility] Heart Rate 70 {beats}/min 04/01/2018 [facility]: [facility] Respitory Rate 18 04/01/2018 [facility] [place] Systolic (mm Hg) 124 04/01/2018 [facility] [place] Diastolic (mm Hg) 72 04/01/2018 [facility]: [facility] Temperature Oral (F) 97.2 F 04/01/2018 SNF: [facility] Heart Rate 74 {beats}/min [facility]01[facility] Systolic (mm Hg) 124 04/01/2018 [facility] Diastolic (mm Hg) 72 04/01/2018 SNF: [facility] Temperature Oral (F) 97.2 F 04/01/2018 SNF: [facility] Heart Rate 74 {beats}/min 04/01/2018 [facility]: [facility] Respitory Rate 18 03/31/2018 SNF: [facility] [place] Systolic (mm Hg) 122 03/31/2018 SNF: [facility] [place] Diastolic (mm Hg) 76 03/31/2018 SNF: [facility] Temperature Oral (F) 97.4 F 03/31/2018 SNF: [facility] Heart Rate 76 {beats}/min 03/31/2018 [facility] Respitory Rate 18 03/31/2018 SNF: [facility] Systolic (mm Hg) 122 03/31/2018 SNF: [facility] Diastolic (mm Hg) 76 03/31/2018 SNF: [facility] Temperature Oral (F) 97.4 F 03/31/2018 SNF: [facility] Heart Rate 76 {beats}/min 03/31/2018 SNF: [facility] Respitory Rate 16 03/31/2018 SNF: [facility] Systolic (mm Hg) 110 03/31/2018 SNF: [facility] Diastolic (mm Hg) 75 03/31/2018 SNF: [facility] Temperature Oral (F) 97.5 F 03/31/2018 SNF: [facility] Heart Rate 74 {beats}/min 03/31/2018 SNF: [facility] Respitory Rate 16 03/31/2018 SNF: [facility] Systolic (mm Hg) 110 03/31/2018 SNF: [facility] Diastolic (mm Hg) 75 03/31/2018 SNF: [facility] Temperature Oral (F) 97.5 F 03/31/2018 SNF: [facility] Heart Rate 74 {beats}/min 03/31/2018 [facility]: [facility] Respitory Rate 16 03/31/2018 [facility]: [facility] Systolic (mm Hg) 110 03/31/2018 [facility] [place] Diastolic (mm Hg) 75 03/31/2018 SNF: [facility] Temperature Oral (F) 97.5 F 03/31/2018 SNF: [facility] Heart Rate 78 {beats}/min 03/31/2018 [facility]: [facility] Respitory Rate 16 03/31/2018 [facility]: [facility] [place] Systolic (mm Hg) 110 03/31/2018 [facility] [place] Diastolic (mm Hg) 75 03/31/2018 SNF: [facility] Temperature Oral (F) 97.5 F 03/31/2018 SNF: [facility] Heart Rate 78 {beats}/min 03/31/2018 SNF: [facility] Respitory Rate 18 03/30/2018 SNF: [facility] Systolic (mm Hg) 148 03/30/2018 SNF: [facility] [place] Diastolic (mm Hg) 74 03/30/2018 SNF: [facility] Temperature Oral (F) 97.6 F 03/30/2018 SNF: [facility] Heart Rate 77 {beats}/min 03/30/2018 SNF: [facility] Respitory Rate 18 03/30/2018 SNF: [facility] Systolic (mm Hg) 148 03/30/2018 SNF: [facility] Diastolic (mm Hg) 74 03/30/2018 SNF: [facility] Temperature Oral (F) 97.6 F 03/30/2018 SNF: [facility] Heart Rate 77 {beats}/min 03/30/2018 SNF: [facility] [place] Respitory Rate 18 03/29/2018 SNF: [facility] Systolic (mm Hg) 150 03/29/2018 [facility] Diastolic (mm Hg) 82 03/29/2018 SNF: [facility] Temperature Oral (F) 98 F 03/29/2018 SNF: [facility] Heart Rate 74 {beats}/min 03/29/2018 SNF: [facility] Respitory Rate 18 03/29/2018 SNF: [facility] Systolic (mm Hg) 150 03/29/2018 SNF: [facility] Diastolic (mm Hg) 82 03/29/2018 SNF: [facility] Temperature Oral (F) 98 F 03/29/2018 SNF: [facility] Heart Rate 74 {beats}/min 03/29/2018 SNF: [facility] Respitory Rate 20 03/29/2018 SNF: [facility] Systolic (mm Hg) 144 03/29/2018 SNF: [facility] Diastolic (mm Hg) 75 03/29/2018 SNF: [facility] Temperature Oral (F) 98.2 F 03/29/2018 SNF: [facility] Heart Rate 80 {beats}/min 03/29/2018 SNF: [facility] Respitory Rate 20 03/29/2018 SNF: [facility] Systolic (mm Hg) 144 03/29/2018 SNF: [facility] Diastolic (mm Hg) 75 03/29/2018 SNF: [facility] Temperature Oral (F) 98.2 F 03/29/2018 SNF: [facility] Heart Rate 80 {beats}/min 03/29/2018 SNF: [facility] Weight 189 03/28/2018 SNF: [facility] Height 67 03/28/2018 SNF: [facility] Weight 189 03/28/2018 SNF: [facility] Height 67 03/28/2018 SNF: [facility] Respitory Rate 20 03/28/2018 SNF: [facility] Systolic (mm Hg) 139 03/28/2018 SNF: [facility] Diastolic (mm Hg) 62 03/28/2018 SNF: [facility] Temperature Oral (F) 98.3 F 03/28/2018 SNF: [facility] Heart Rate 82 {beats}/min 03/28/2018 SNF: [facility] Respitory Rate 20 03/28/2018 SNF: [...] DC Date Status Source Discharged Inpatient (obs) [id number] KALEB CHA MD 01/04/2018 01/06/2018 [facility] Discharged Inpatient [id number] KALEB CHA MD 02/23/2018 03/14/2018 [facility] Discharged Inpatient [id number] KALEB CHA MD 03/26/2018 03/27/2018 [facility] Discharged Inpatient (obs) [id number] KALEB CHA MD 05/04/2018 05/04/2018 [facility] Discharged Inpatient [id number] KALEB CHA MD 05/08/2018 05/15/2018 [facility] Discharged Inpatient (obs) [id number] KALEB CHA MD 05/23/2018 05/24/2018 [facility] Discharged Inpatient [id number] KLAEB CHA MD 06/04/2018 06/17/2018 [facility] Discharged Inpatient [id number] KALEB CHA MD 06/22/2018 07/08/2018 [facility] Procedures Procedure Code Date Perfomer Comments Source CT of abdomen and pelvis without contrast [id number] 07/05/2018 [facility] X-ray of chest, two views [id number] 06/30/2018 [facility] [facility] with ultrasound guidance [id number] 06/25/2018 [facility] X-ray of chest, two views [id number] 06/16/2018 [facility] TRANSFUSE NONAUT PLATELETS IN PERIPH VEIN, PERC [id number] 06/10/2018 [facility] TRANSFUSE NONAUT RED BLOOD CELLS IN PERIPH VEIN, PERC [id number] 06/06/2018 [facility] Computed tomography of chest without contrast [id number] 06/03/2018 [facility] X-ray of chest, single view [id number] 06/02/2018 [facility] Computed tomography of brain without radiopaque contrast [id number] 05/23/2018 [facility] X-ray of chest, single view [id number] 05/03/2018 [facility] X-ray of chest, single view [id number] 03/20/2018 [facility] [address] of abdomen and pelvis without contrast [id number] 03/04/2018 [facility] EXCISION OF R FOOT SUBCU/FASCIA, OPEN APPROACH [id number] [facility] [id number] 02/24/2018 [facility] CT of abdomen and pelvis without contrast [id number] 02/23/2018 [facility] CT of abdomen and pelvis without contrast [id number] 01/05/2018 [facility] Computed tomography of chest without contrast [id number] 01/05/2018 [facility] X-ray of chest, two views [id number] 01/04/2018 [facility] Assessment and Plan No Data Provided for This Section Plan of Care Plan of Care Date Source Discharge Date 07/08/18 7:15pm Disposition HOME HEALTH SERVICE Instructions/Education Provided Anemia Pyelonephritis Prescriptions See Medication Section Additional Instructions/Education DO NOT GIVE ANY DIABETIC MEDICATION ,GLIPIZIDE WAS DISCONTINUED. FOLLOW UP WITH [facility] NEXT WEEK. 07/08/2018 [facility] Social History Social History Date Source Social [...] 02/09/2017 3:54pm Not Applicable Not Applicable 07/08/2018 [facility] Smoking StatusStart DateEnd Date Unknown if ever smoked 06/22/2018 18:57:39 06/08/2018 SNF: [facility] Family History Value Date Source [...] of hypertension Not Recorded 01/14/2017 3:25pm 07/08/2018 [facility] Advance Directives Order Name Results Value Date Source Advance Directives Advance Directives Directive Response Recorded Date/Time Does the patient have an advance directive? No 06/22/18 10:45pm If yes, is advance directive on file with [facility]? No 06/22/18 10:45pm If not on file with [facility] will patient provide a copy? No 06/22/18 10:45pm Do you have a Directive to Physician? 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 Yes 06/22/18 5:34pm Do you have an [...] rights and responsibilities? Yes 06/22/18 5:34pm 07/08/2018 [facility] Advance Directives Advance Directives Cardiopulmonary Resuscitation 06/22/2018 SNF: [facility] Advance Directives Advance Directives Cardiopulmonary Resuscitation 04/08/2018 SNF: [facility] Functional Status No Data Provided for This Section
[2018-09-07] MEDS ORDERED: ONDANSETRON HCL INJ 2MG/ML 2ML 2 MG/ML VIAL IV STA ×2 (01:36→02:24)
[2018-09-07] MEDS ORDERED: ONDANSETRON HCL INJ 2MG/ML 2ML 2 MG/ML VIAL ONE (01:37)
[2018-09-07] MEDS ORDERED: DICYCLOMINE HCL 20 MG/2 ML VIAL IM ONE (02:15)
[2018-09-07] MEDS ORDERED: DIATRIZOATE MEGL/DIATRIZOA SOD 30 ML BTL PO ONE (02:24)
[2018-09-07] MEDS: MORPHINE SULFATE INJ 4 MG/ML INJ 1ML IV PRN (02:38)
[2018-09-07] MEDS ORDERED: PROMETHAZINE HCL (IM) 25 MG/ML VIAL ONE (03:38)
[2018-09-07] MEDS ORDERED: PROMETHAZINE 12.5MG/ NACL 0.9% 12.5 MG/50 ML BAG IV ONE (03:45)
[2018-09-07] MEDS ORDERED: HYDRALAZINE HCL 20 MG/ML VIAL IV STA (04:48)
--- NOTE | 2018-09-07 05:01 | Diagnostic Imaging Report ---
Examination: Single AP view of the chest. COMPARISON: July 06, 2018 INDICATION: Vomiting DISCUSSION: Lines/tubes: None. Lungs: Pulmonary venous congestion. Lower lung atelectasis. Pleura: Small effusions. Heart and mediastinum: Cardiomegaly. Bones and soft tissues: No acute bony abnormalities. IMPRESSION: Cardiomegaly with pulmonary venous congestion and small effusions. Signed by: Dr. Tico Alejandro M.D. on 09/07/2018 4:57 AM
--- NOTE | 2018-09-07 05:11 | Diagnostic Imaging Report ---
EXAMINATION: CT of the abdomen and pelvis without contrast. TECHNIQUE: Helical CT images of the abdomen and pelvis were performed from the lung bases to the lesser trochanters. No intravenous contrast was given per renal stone protocol. Coronal and sagittal reformatted images were obtained.Dose modulation, iterative reconstruction, and/or weight based adjustment of the mA/kV was utilized to reduce the radiation dose to as low as reasonably achievable. COMPARISON: None. CLINICAL HISTORY:Vomiting DISCUSSION: ABSENCE OF INTRAVENOUS CONTRAST DECREASES SENSITIVITY FOR DETECTION OF FOCAL LESIONS AND VASCULAR PATHOLOGY. ABDOMEN/PELVIS: LOWER THORAX: Small effusions and adjacent atelectasis. Calcified granuloma right lower lobe. HEPATOBILIARY:No focal hepatic lesions. No biliary ductal dilation. The gallbladder is normal. SPLEEN: No splenomegaly. PANCREAS: Atrophy. ADRENALS: No adrenal nodules. KIDNEYS/URETERS: Renal atrophy with extensive vascular calcifications. Kidney transplant the right lower quadrant. PELVIC ORGANS/BLADDER: The bladder is normal. PERITONEUM/RETROPERITONEUM: No free air or fluid. LYMPH NODES: No intra-abdominal,retroperitoneal, pelvic or inguinal lymphadenopathy. VESSELS: Extensive vascular calcifications. GI TRACT: The stomach is severely distended with enteric contrast. Loops of small bowel are distended with equalization, however no transition point identified. Left lower quadrant colostomy. BONES AND SOFT TISSUES: No bony destructive lesions. No soft tissue abnormalities. IMPRESSION: Superiorly distended stomach and mildly distended loops of small bowel likely related to ileus. No transition point visualized. Signed by: Dr. Tico Alejandro M.D. on 09/07/2018 5:08 AM
[2018-09-07] MEDS ORDERED: MORPHINE SULFATE 2 MG/ML SYR 1ML IV PRN (05:45)
[2018-09-07] MEDS ORDERED: FUROSEMIDE INJ 10 MG/ML 4 ML VIAL IV ONE (05:45)
[2018-09-07 05:59] LABS: BASOPHILS % 0.3 % (0.0-1.0); EOSINOPHILS % 0.1 % (0.0-6.0); HEMATOCRIT 30.7 % (38.2-49.6); HEMOGLOBIN 10.2 g/dL (14.0-18.0); LYMPHOCYTES # (AUTO) 1.4 (1.0-3.2); MEAN CORPUSCULAR HEMOGLOBIN 31.2 pg (28-32); MEAN CORPUSCULAR HGB CONC 33.2 g/dL (31-35); MEAN CORPUSCULAR VOLUME 93.9 fL (81-99); MONOCYTES # (AUTO) 0.5 (0.2-0.8); MONOCYTES % 6.3 % (4.4-11.3); NEUTROPHILS # (AUTO) 5.8 (2.1-6.9); NEUTROPHILS % 73.8 % (38.7-80.0); PLATELET COUNT 246 x10e3/uL (140-360); RED BLOOD COUNT 3.27 x10e6/uL (4.3-5.7); RED CELL DISTRIBUTION WIDTH 16.1 % (11.7-14.4)
[2018-09-07] MEDS ORDERED: BENZOCAINE/TETRACAINE/BUTAMBEN AERO SPRAY 56 GM CAN ONE (06:06)
[2018-09-07 06:20] LABS: ALBUMIN 3.3 g/dL (3.5-5.0); ALBUMIN/GLOBULIN RATIO 0.9 (0.8-2.0); CREATININE, SERUM 2.54 mg/dL (0.72-1.25)
[2018-09-07 06:27] LABS: CREATINE KINASE MB 2.6 ng/mL (0-5.0)
[2018-09-07] MEDS ORDERED: CEFTRIAXONE SOD 1 GM/NS 50 ML 50 ML IV SCH (06:30)
[2018-09-07] MEDS ORDERED: BUMETANIDE2 MG PO (06:37)
--- OUTSIDE RECORDS SUMMARY | 2018-09-07 07:06 | XMS REPORT | Clinical Summary ---
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 09/06/2016 [id number] / / [id number] Adhesion Barrier,Seprafilm 5x6 - Cement/Wong N/A: Abdomen GENZYME [id number] ler/Adhesi SURGICAL Implanted: Qty: 2 on 07/06/2014 by ve SocialThreader Amrit Elam MD 02/06/2017 [id number] / / [id number] Adhesion Barrier,Seprafilm 5x6 - Cement/Wogn N/A: Abdomen GENZYME [id number] ler/Adhesi SURGICAL Implanted: Qty: 1 on 01/31/2015 by ve SocialThreader Amrit Elam MD [id number] / / Stent,Uret Polaris 5fr X 10cm - Uro Stent [place] [id number] SCIENTIFIC Implanted: Qty: 1 on 05/24/2013 03/09/2016 [id number] / / [id number] Stent,Uret Polaris 5fr X 10cm - Uro Stent Right: Ureter [place] [id number] SCIENTIFIC Implanted: Qty: 1 on 01/21/2014 by Baljit Larson MD Results Not on fileafter 09/06/2017 Insurance Payer Benefit Subscriber ID Type Phone Address Plan / Group [employer] TEX[employer] xxxxxxxxx Maps HMO ALL Contracted Advance Directives For more information, please contact: [phone] [place] [address] Date Inactivated Comments Code Status [...]
--- OUTSIDE RECORDS SUMMARY | 2018-09-07 07:08 | XMS REPORT | Continuity of Care Document ---
Author Author [employer] Organization [employer] Address Unknown Phone Unavailable Care Team Providers Care Reiki Practitioner Name Role Phone [employer] Unavailable Unavailable Problems Problem Status Onset Date Classification Date Reported Comments Source A41.9 SEPSIS, UNSPECIFIED ORGANISM 06/17/2018 Diagnosis 06/22/2018 SNF: [facility] M86.10 OTHER ACUTE OSTEOMYELITIS, UNSPECIFIED SITE 06/17/2018 Diagnosis 06/22/2018 SNF: [facility] J44.9 CHRONIC OBSTRUCTIVE PULMONARY DISEASE, UNSPECIFIED 06/17/2018 Diagnosis 06/22/2018 SNF: [facility] Type II diabetes mellitus uncontrolled 03/28/2018 Diagnosis 06/22/2018 SNF: [facility] E11.40 TYPE 2 DIABETES MELLITUS WITH DIABETIC NEUROPATHY, UNSPECIFIED 03/27/2018 Diagnosis 06/22/2018 SNF: [facility] L89.620 PRESSURE ULCER OF LEFT HEEL, UNSTAGEABLE 03/23/2018 Diagnosis 06/22/2018 SNF: [facility] J91.8 PLEURAL EFFUSION IN OTHER CONDITIONS CLASSIFIED ELSEWHERE 03/09/2018 Diagnosis 06/22/2018 SNF: [facility] F32.9 MAJOR DEPRESSIVE DISORDER, SINGLE EPISODE, UNSPECIFIED 03/09/2018 Diagnosis 06/22/2018 SNF: [facility] I73.9 PERIPHERAL VASCULAR DISEASE, UNSPECIFIED 03/09/2018 Diagnosis 06/22/2018 SNF: [facility] I48.91 UNSPECIFIED ATRIAL FIBRILLATION 03/09/2018 Diagnosis 06/22/2018 SNF: [facility] I50.9 HEART FAILURE, UNSPECIFIED 03/09/2018 Diagnosis 06/22/2018 SNF: [facility] S91.301A UNSPECIFIED OPEN WOUND, RIGHT FOOT, INITIAL ENCOUNTER 03/09/2018 Diagnosis 06/22/2018 SNF: [facility] Z94.0 KIDNEY TRANSPLANT STATUS 03/09/2018 Diagnosis 06/22/2018 SNF: [facility] Z91.81 HISTORY OF FALLING 03/09/2018 Diagnosis 06/22/2018 SNF: [facility] S29.9XXA UNSPECIFIED INJURY OF THORAX, INITIAL ENCOUNTER 03/09/2018 Diagnosis 06/22/2018 SNF: [facility] L03.119 CELLULITIS OF UNSPECIFIED PART OF LIMB 03/09/2018 Diagnosis 06/22/2018 SNF: [facility] N28.9 DISORDER OF KIDNEY AND URETER, UNSPECIFIED 03/09/2018 Diagnosis 06/22/2018 SNF: [facility] Atrial fibrillation Active Problem 07/09/2018 [facility] Blunt chest trauma Active Problem 07/09/2018 [facility] CHF Active Problem 07/09/2018 [facility] Chest pain Active Problem 07/09/2018 [facility] Chronic renal insufficiency Active Problem 07/09/2018 [facility] Cystitis Active Problem 07/09/2018 [facility] Diabetic foot ulcers Active Problem 07/09/2018 [facility] Dyspnea Active Problem 07/09/2018 [facility] HCAP Active Problem 07/09/2018 [facility] Hypertension Active Problem 07/09/2018 [facility] 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 [facility] Palpitations Active Problem 07/09/2018 [facility] Renal insufficiency Active Problem 07/09/2018 [facility] TIA Active Problem 07/09/2018 [facility] UTI Active Problem 07/09/2018 [facility] Renal transplant recipient Active Problem 07/09/2018 [facility] Renal transplant, status post Active Problem 07/09/2018 [facility] Medications Medication Details Route Status Patient Instructions Ordering Provider Order Date Source Amoxicillin/Potassium Clav (Amox Tr-K Clv 500-125 Mg Tab) 1 Each Tablet, Active 07/08/2018 [facility] Furosemide 40 Mg Tablet, 40 Mg Oral Daily Active 07/08/2018 [facility] Glipizide 10 Mg Tablet, 10 Mg Oral Twice A Day Active 07/08/2018 [facility] Bactroban Ointment 2 % 1 APPLICATION TOPICALLY DAILY External Active [facility] Calcitriol Capsule 0.5 MCG 1 CAP(S) BY MOUTH DAILY ON FRI/FRI/FRI Oral Active 06/19/2018 [facility] Folic Acid Tablet 1 MG Give 1 tablet by mouth one time a day for Supplement Oral Active 06/18/2018 [facility] Vitamin B12 Tablet Extended Release 1000 MCG Give 1 tablet by mouth one time a day for Supplement Oral Active [facility]/18[facility] Brimonidine Tartrate Solution 0.1 % 1 DROP(S) IN EACH EYE DAILY Ophthalmic Active 06/18/2018 [facility] Sodium Bicarbonate Tablet 650 MG Give 2 tablet by mouth three times a day related to KIDNEY TRANSPLANT STATUS (Z94.0) Oral Active 06/18/2018 [facility] Lasix Tablet 40 MG 1 TAB(S) BY MOUTH DAILY Oral Active 06/18/2018 [facility] guaiFENesin Syrup 100 MG/5ML Give 30 ml by mouth two times a day for Cough/Congestion [id number] Oral Active 06/18/2018 [facility] Magnesium Oxide Tablet 400 MG Give 1 tablet by mouth one time a day for Supplement Oral Active 06/18/2018 [facility] oxyCODONE HCl Tablet 5 MG Give 1 tablet by mouth every 4 hours as needed for pain DC Wilson once Oxycodone arrives Oral Active 06/18/2018 [facility] Tresiba Solution 100 UNIT/ML Inject 20 unit subcutaneously one time a day for DMII Subcutaneous Active 06/18/2018 [facility] Collagenase Ointment 250 UNIT/GM Apply to Right foot topically every day shift for Wound Care External Active 06/18/2018 [facility] Protonix Tablet Delayed Release 40 MG 1 TAB(S) BY MOUTH 2 TIMES A DAY Oral Active 06/18/2018 [facility] NIFEdipine ER Tablet Extended Release 24 Hour 30 MG Give 1 tablet by mouth every 12 hours for HTN Hold for SBP<110, HR<60 Oral Active 06/18/2018 SNF: [facility] Tacrolimus Capsule 1 MG 2 CAP(S) BY MOUTH EVERY 12 HOURS (2CAPS=2MG) Oral Active 06/18/2018 [facility] Latanoprost Solution 0.005 % 1 DROP(S) IN EACH EYE AT BEDTIME Ophthalmic Active 06/18/2018 [facility] Insulin Lispro Solution 100 UNIT/ML Inject as per sliding scale: if 121 - 150=2 units; 151 - 200=4 units; 201 - 250=6 units; 251 - 300=8 units; 301 - 350=10 units; 351 - 400=12 units; 401 - 999=14 units Call MD, subcutaneously before meals and at bedtime for DMII Subcutaneous Active 06/18/2018 SNF: [facility] Wilson Tablet 10-325 MG Give 1 tablet by mouth every 4 hours as needed for Pain D/C when Percocet arrives Oral Active 06/17/2018 SNF: [facility] hydrALAZINE HCl Tablet 25 MG 1 TAB(S) BY MOUTH EVERY 4 HOURS NEEDED FOR SBP >180; DBP >90 Oral Active 06/17/2018 SNF: [facility] diphenhydrAMINE HCl Tablet 25 MG Give 1 tablet by mouth as needed for Itching Bedtime Oral Active 06/17/2018 SNF: [facility] oxyCODONE-Acetaminophen Tablet 5-325 MG Give 1 tablet by mouth every 4 hours as needed for Pain Oral Active 06/17/2018 SNF: [facility] Zofran Tablet 4 MG 1 TAB(S) BY MOUTH EVERY 4 HOURS NEEDED Oral Active 06/17/2018 SNF: [facility] Benzonatate Capsule 100 MG 1 CAP(S) BY MOUTH EVERY 6 HOURS NEEDED Oral Active 06/17/2018 SNF: [facility] Glipizide 5 Mg Tablet, 10 Mg Oral Twice Daily With Meals Active 05/24/2018 [facility] Ciprofloxacin Hcl (Cipro) 250 Mg Tablet, 250 Mg Oral Every 12 Hours Active 05/23/2018 [facility] Glipizide (Glucotrol) 10 Mg Tablet, 10 Mg Oral Twice A Day Active 05/23/2018 [facility] Allopurinol 300 Mg Tablet, 300 Mg Oral Daily Active 05/03/2018 [facility] Amoxicillin/Potassium Clav (Augmentin 500-125 Tablet) 1 Each Tablet, 500 Mg Oral Twice A Day Active 05/03/2018 [facility] Santyl Ointment 250 UNIT/GM Apply to right plantar foot ulcer topically every day shift for wound healing cleanse right plantar foot with ns or wc, appply santyl with nugauze packing and cover daily External Active 04/09/2018 SNF: [facility] Santyl Ointment 250 UNIT/GM Apply to right plantar foot ulcer topically every day shift for wound healing cleanse right plantar foot with ns or wc, appply santyl with nugauze packing and cover daily External Inactive 04/09/2018 SNF: [facility] Lidocaine Patch 5 % 1 PATCH(ES) TOPICALLY DAILY - REMOVE IN 12-HOURS (REMOVE OLD PATCH BEFORE APPLYING A NEW ONE) LOCATION : LEFT SHOULDER External Active 04/07/2018 SNF: [facility] Lidocaine Patch 5 % 1 PATCH(ES) TOPICALLY DAILY - REMOVE IN 12-HOURS (REMOVE OLD PATCH BEFORE APPLYING A NEW ONE) LOCATION : LEFT SHOULDER External Active 04/07/2018 SNF: [facility] Probiotic Capsule Give 1 capsule by mouth one time a day for Supplement. for 7 Days Oral Active 04/03/2018 SNF: [facility] Probiotic Capsule Give 1 capsule by mouth one time a day for Supplement. for 7 Days Oral Active 04/03/2018 SNF: [facility] HydrOXYzine HCl Tablet 25 MG 0.5 TAB(S) BY MOUTH DAILY NEEDED (0.5T=12.5MG) Oral Active 04/03/2018 SNF: [facility] HydrOXYzine HCl Tablet 25 MG 0.5 TAB(S) BY MOUTH DAILY NEEDED (0.5T=12.5MG) Oral Active 04/03/2018 SNF: [facility] HydrOXYzine HCl Solution 25 MG/ML Inject 0.5 tablet intramuscularly every 6 hours as needed for Itching Give half tab. Intramuscular Inactive 04/02/2018 SNF: [facility] HydrOXYzine HCl Solution 25 MG/ML Inject 0.5 tablet intramuscularly every 6 hours as needed for Itching Give half tab. Intramuscular Inactive 04/02/2018 SNF: [facility] Ondansetron HCl Tablet 4 MG 1 TAB(S) BY MOUTH EVERY 6 HOURS NEEDED FOR N/V Oral Active 04/02/2018 SNF: [facility] Ondansetron HCl Tablet 4 MG 1 TAB(S) BY MOUTH EVERY 6 HOURS NEEDED FOR N/V Oral Active 04/01/2018 SNF: [facility] OxyCODONE HCl Tablet Abuse-Deterrent 7.5 MG 0.5 TAB(S) BY MOUTH EVERY 4 HOURS NEEDED (0.5TAB=2.5MG) Oral Active 03/31/2018 SNF: [facility] OxyCODONE HCl Tablet Abuse-Deterrent 7.5 MG 0.5 TAB(S) BY MOUTH EVERY 4 HOURS NEEDED (0.5TAB=2.5MG) Oral Active 03/31/2018 SNF: [facility] Coumadin Tablet 2 MG 1 TAB(S) BY MOUTH DAILY ON FRI/FRI/FRI RELATED TO HEART FAILURE, UNSPECIFIED (I50.9) Oral Active 03/30/2018 SNF: [facility] Coumadin Tablet 2 MG 1 TAB(S) BY MOUTH DAILY ON FRI/FRI/FRI RELATED TO HEART FAILURE, UNSPECIFIED (I50.9) Oral Active 03/30/2018 SNF: [facility] Roxicodone Tablet 5 MG Give 1 tablet by mouth every 4 hours as needed for Pain Oral Inactive 03/30/2018 SNF: [facility] Roxicodone Tablet 5 MG Give 1 tablet by mouth every 4 hours as needed for Pain Oral Inactive 03/30/2018 SNF: [facility] Santyl Ointment 250 UNIT/GM Apply to Right planter foot topically every day shift for Wound Healing External Active 03/29/2018 SNF: [facility] Santyl Ointment 250 UNIT/GM Apply to Right planter foot topically every day shift for Wound Healing External Active 03/29/2018 SNF: [facility] Levemir FlexPen Solution Pen-injector 100 UNIT/ML Inject 10 unit subcutaneously at bedtime for ANTIDIABETICS Subcutaneous Active 03/29/2018 SNF: [facility] Levemir FlexPen Solution Pen-injector 100 UNIT/ML Inject 10 unit subcutaneously at bedtime for ANTIDIABETICS Subcutaneous Active 03/29/2018 SNF: [facility] Coumadin Tablet 1 MG 1 TAB(S) BY MOUTH EVERY EVENING EVERY TUE, SAGAR, SAT, SUN RELATED TO UNSPECIFIED ATRIAL FIBRILLATION (I48.91) Oral Active 03/28/2018 SNF: [facility] Coumadin Tablet 1 MG 1 TAB(S) BY MOUTH EVERY EVENING EVERY TUE, SAGAR, SAT, SUN RELATED TO UNSPECIFIED ATRIAL FIBRILLATION (I48.91) Oral Active 03/28/2018 SNF: [facility] HumaLOG Solution 100 UNIT/ML Inject 5 unit subcutaneously before meals related to TYPE 2 DIABETES MELLITUS WITH HYPERGLYCEMIA (E11.65) AND Inject as per sliding scale: if 150 - 200=3; 201 - 250=6; 251 - 300=9; 301 - 350=12; 351+ Call MD, subcutaneously before meals and at bedtime related to TYPE 2 DIABETES MELLITUS WITH HYPERGLYCEMIA (E11.65) Subcutaneous Inactive 03/28/2018 SNF: [facility] HumuLIN R Solution 100 UNIT/ML Inject 5 unit subcutaneously before meals related to TYPE 2 DIABETES MELLITUS WITH HYPERGLYCEMIA (E11.65) AND Inject as per sliding scale: if 150 - 200=3; 201 - 250=6; 251 - 300=9; 301 - 350=12; 351+ Call MD, subcutaneously before meals and at bedtime related to TYPE 2 DIABETES MELLITUS WITH HYPERGLYCEMIA (E11.65) Injection Active 03/28/2018 SNF: [facility] HumaLOG Solution 100 UNIT/ML Inject 5 unit subcutaneously before meals related to TYPE 2 DIABETES MELLITUS WITH HYPERGLYCEMIA (E11.65) AND Inject as per sliding scale: if 150 - 200=3; 201 - 250=6; 251 - 300=9; 301 - 350=12; 351+ Call MD, subcutaneously before meals and at bedtime related to TYPE 2 DIABETES MELLITUS WITH HYPERGLYCEMIA (E11.65) Subcutaneous Inactive 03/28/2018 SNF: [facility] HumuLIN R Solution 100 UNIT/ML Inject 5 unit subcutaneously before meals related to TYPE 2 DIABETES MELLITUS WITH HYPERGLYCEMIA (E11.65) AND Inject as per sliding scale: if 150 - 200=3; 201 - 250=6; 251 - 300=9; 301 - 350=12; 351+ Call MD, subcutaneously before meals and at bedtime related to TYPE 2 DIABETES MELLITUS WITH HYPERGLYCEMIA (E11.65) Injection Active 03/28/2018 SNF: [facility] Ampicillin Capsule 500 MG 1 CAP(S) BY MOUTH EVERY 8 HOURS FOR 10 DAYS Oral Active 03/28/2018 SNF: [facility] Aztreonam in Dextrose Solution 1 GM/50ML Use 0.5 gram intravenously every 12 hours related to CELLULITIS OF UNSPECIFIED PART OF LIMB (L03.119) for 10 Days @ 100 mL/H Intravenous Active 03/28/2018 SNF: [facility] Prograf Capsule 1 MG 2 CAP(S) BY MOUTH 2 TIMES A DAY (2CAPS=2MG) RELATED TO KIDNEY TRANSPLANT STATUS (Z94.0) Oral Active 03/28/2018 SNF: [facility] Calcitriol Capsule 0.5 MCG 1 CAP(S) BY MOUTH DAILY ON MON/WED/FRI Oral Active 03/28/2018 SNF: [facility] Ferrous Sulfate Tablet 325 (65 Fe) MG Give 1 tablet by mouth one time a day for supplementation Oral Active 03/28/2018 SNF: [facility] Furosemide Tablet 40 MG 1 TAB(S) BY MOUTH EVERY 12 HOURS Oral Active 03/28/2018 SNF: [facility] PredniSONE Tablet 5 MG Give 1 tablet by mouth one time a day for CORTICOSTEROIDS Oral Active 03/28/2018 SNF: [facility] Loratadine Tablet 10 MG Give 1 tablet by mouth one time a day for Allergy Symptoms Oral Active 03/28/2018 SNF: [facility] Potassium Tablet Give 40 mEq by mouth one time a day for supplement Oral Active 03/28/2018 SNF: [facility] HydrALAZINE HCl Tablet 50 MG Give 1 tablet by mouth three times a day related to HEART FAILURE, UNSPECIFIED (I50.9) Hold for SBP <130 Oral Active 03/28/2018 SNF: [facility] Ampicillin Capsule 500 MG 1 CAP(S) BY MOUTH EVERY 8 HOURS FOR 10 DAYS Oral Active 03/28/2018 SNF: [facility] Aztreonam in Dextrose Solution 1 GM/50ML Use 0.5 gram intravenously every 12 hours related to CELLULITIS OF UNSPECIFIED PART OF LIMB (L03.119) for 10 Days @ 100 mL/H Intravenous Active 03/28/2018 SNF: [facility] Calcitriol Capsule 0.5 MCG 1 CAP(S) BY MOUTH DAILY ON FRI/FRI/FRI Oral Active 03/28/2018 SNF: [facility] Prograf Capsule 1 MG 2 CAP(S) BY MOUTH 2 TIMES A DAY (2CAPS=2MG) RELATED TO KIDNEY TRANSPLANT STATUS (Z94.0) Oral Active 03/28/2018 SNF: [facility] Ferrous Sulfate Tablet 325 (65 Fe) MG Give 1 tablet by mouth one time a day for supplementation Oral Active 03/28/2018 SNF: [facility] Furosemide Tablet 40 MG 1 TAB(S) BY MOUTH EVERY 12 HOURS Oral Active 03/28/2018 SNF: [facility] PredniSONE Tablet 5 MG Give 1 tablet by mouth one time a day for CORTICOSTEROIDS Oral Active 03/28/2018 SNF: [facility] Loratadine Tablet 10 MG Give 1 tablet by mouth one time a day for Allergy Symptoms Oral Active 03/28/2018 SNF: [facility] Potassium Tablet Give 40 mEq by mouth one time a day for supplement Oral Active 03/28/2018 SNF: [facility] HydrALAZINE HCl Tablet 50 MG Give 1 tablet by mouth three times a day related to HEART FAILURE, UNSPECIFIED (I50.9) Hold for SBP <130 Oral Active 03/28/2018 SNF: [facility] Tylenol Tablet 325 MG Give 2 tablet by mouth one time only for PAIN for 1 Day Per Randi Lewis Oncall Oral Active 03/28/2018 SNF: [facility] Tylenol Tablet 325 MG Give 2 tablet by mouth one time only for PAIN for 1 Day Per Randi Lewis Oncall Oral Active 03/28/2018 SNF: [facility] Oxycodone-Acetaminophen Tablet 5-325 MG Give 1 tablet by mouth every 4 hours as needed for PAIN *For Percocet 10-325:Give 1 Percocet 5- 325+ Oxycodone 5mg* Oral Active 03/28/2018 SNF: [facility] HydrOXYzine HCl Tablet 25 MG 0.5 TAB(S) BY MOUTH DAILY NEEDED (0.5T=12.5MG) Oral Active 03/28/2018 SNF: [facility] Tuberculin PPD Solution Inject 0.1 ml intradermally one time only for Prophylaxis for 1 Day Adm within first 24 hours of admission. Repeat yearly. Intradermal Active 03/28/2018 SNF: [facility] Oxycodone-Acetaminophen Tablet 5-325 MG Give 1 tablet by mouth every 4 hours as needed for PAIN *For Percocet 10-325:Give 1 Percocet 5- 325+ Oxycodone 5mg* Oral Active 03/28/2018 SNF: [facility] HydrOXYzine HCl Tablet 25 MG 0.5 TAB(S) BY MOUTH DAILY NEEDED (0.5T=12.5MG) Oral Active 03/28/2018 SNF: [facility] Tuberculin PPD Solution Inject 0.1 ml intradermally one time only for Prophylaxis for 1 Day Adm within first 24 hours of admission. Repeat yearly. Intradermal Active 03/28/2018 SNF: [facility] Roxicodone Tablet 5 MG Give 1 tablet by mouth every 4 hours as needed for Pain Give with Percocet 5-325mg to equal Percocet 10-325mg Oral Active 03/27/2018 SNF: [facility] Roxicodone Tablet 5 MG Give 1 tablet by mouth every 4 hours as needed for Pain Give with Percocet 5-325mg to equal Percocet 10-325mg Oral Active 03/27/2018 SNF: [facility] Alprazolam 0.5 Mg Tablet, 0.5 Mg Oral Daily Active 03/20/2018 [facility] Gabapentin 300 Mg Capsule, 300 Mg Oral Twice A Day Active 03/20/2018 [facility] Hydralazine Hcl 25 Mg Tab, 50 Mg Oral Every 6 Hours as needed for >Xs=649 Active 03/20/2018 [facility] Insulin Lisp Protam/Lisp Human (Humalog Mix 75-25 Vial) 100 Units/Ml Ml, Subcutaneously Before Meals And At Bedtime Active 03/20/2018 [facility] Metoclopramide Hcl (Reglan) 5 Mg Tablet, 5 Mg Oral Before Meals And At Bedtime Active 03/20/2018 [facility] Metoprolol Succinate 25 Mg Tab.er.24h, 25 Mg Oral Twice A Day as needed for High Blood Pressure Active 03/20/2018 [facility] Tacrolimus 1 Mg Capsule, 1 Mg Oral Twice A Day Active 03/20/2018 [facility] Torsemide 20 Mg Tablet, Active 03/20/2018 [facility] Warfarin Sodium 2 Mg Tablet, 2 Mg Oral Daily Active 03/20/2018 [facility] Tuberculin PPD Solution Inject 0.1 ml intradermally one time only for Prophylaxis for 1 Day Adm within first 24 hours of admission. Repeat yearly. Intradermal Active 03/14/2018 SNF: [facility] Hydralazine Hcl 25 Mg Tab, 100 Mg Oral Three Times A Day Active 03/14/2018 [facility] Hydralazine Hcl 25 Mg Tab, 50 Mg Oral Three Times A Day Active [facility] 03/13/2018 [facility] Insulin Detemir 100 Unit/Ml Pen, 13 Unit Sub-Q Bedtime Active [facility] 03/13/2018 [facility] Metoprolol Succinate (Toprol Xl) 25 Mg Tab.er.24h, 25 Mg Oral Twice A Day Active [facility] 03/13/2018 [facility] Sodium Bicarbonate 650 Mg Tablet, 1300 Mg Oral Twice A Day Active [facility] 03/13/2018 [facility] Amiodarone Hcl 200 Mg Tablet, 200 Mg Oral Daily Active 01/05/2018 [facility] Metoprolol Tartrate 50 Mg Tablet, 50 Mg Oral Twice A Day Active 02/23/2017 [facility] Pioglitazone Hcl (Actos*) 15 Mg Tablet, 30 Mg Oral Daily Active 01/19/2017 [facility] Warfarin Sodium 1 Mg Tablet, 1 Mg Oral M,F Active 01/19/2017 [facility] Insulin Lisp Protam/Lisp Human (Humalog Mix 75-25 Vial) 100 Units/Ml Ml, 60 Unit Subcutaneously Daily At 1700 Active 01/14/2017 [facility] Labetalol Hcl 200 Mg Tablet, 200 Mg Oral Daily Active 01/14/2017 [facility] Cholecalciferol (Vitamin D3) (Vitamin D) 1,000 Unit Tablet, 2000 Unit Oral Daily Active 11/05/2016 [facility] Brimonidine Tartrate (Combigan Eye Drops) 5 Ml Drpette Daily Active [facility] Bumetanide 1 Mg Tablet Three Times A Day Active [facility] Calcitriol 0.25 Mcg Capsule .// Active TAKE ON MONDAYS, WEDNESDAYS, AND FRIDAYS [facility] Diphenhydramine Hcl (Benadryl) 25 Mg Capsule Bedtime as needed for Sleep Active [facility] Fe Fumarate/Fa/Mv, Min Comb#15 (Hemocyte Plus Capsule) 1 Each Capsule Twice A Day Active [facility] Ferrous Sulfate (Feosol) 325 Mg Tablet Daily Active [facility] Hydralazine Hcl 25 Mg Tab Three Times A Day Active [facility] Latanoprost 2.5 Ml Drops Bedtime Active [facility] Linezolid (Zyvox) 600 Mg Tablet Every 12 Hours Active [facility] Magnesium Oxide 400 Mg Tablet Daily Active [facility] Metoprolol Tartrate 50 Mg Tablet Twice A Day Active [facility] Oxycodone Hcl/Acetaminophen (Oxycodone-Acetaminophen 5-325) 1 Each Tablet Every 4 Hours as needed for Pain Active 1-2 tablets [facility] Potassium Chloride 20 Meq Tab.er.prt Three Times Daily With Meals Active [facility] Prednisone 5 Mg Tablet Daily Active [facility] Santyl Bedtime Active [facility] Tacrolimus (Prograf) 1 Mg Cap Twice A Day Active [facility] Tramadol Hcl (Ultram) 50 Mg Tablet Every 6 Hours Active [facility] Tresiba Daily Active [facility] Warfarin Sodium 1 Mg Tablet Daily Active [facility] Zinc Acetate/[place]weet/[place] (Amerigel Wound Dressing Gel) 28.3 Gm Gel..gram. Daily Active [facility] [place] Allergies, Adverse Reactions, Alerts No Known Medication Allergies Immunizations Immunization Date Given Site Status Last Updated Comments Source tuberculin skin test; purified protein derivative solution, intradermal 03/28/2018 completed Sidra Caldwell SNF: [facility] tuberculin skin test; purified protein derivative solution, intradermal 03/28/2018 completed Sidra Caldwell SNF: [facility] pneumococcal polysaccharide vaccine, 23 valent 03/28/2018 Not Given SNF: [facility] Influenza, seasonal, injectable 01/08/2018 completed SNF: [facility] Results Order Name Results Value Reference Range Date Interpretation Comments Source Capillary blood glucose measurement by glucometer (mass/volume) 204 70 - 120 07/08/2018 [facility] [place] [facility] Blood leukocytes automated count (number/volume) 8.76 4.8 - 10.8 07/07/2018 [facility] [place] [facility] Blood erythrocytes automated count (number/volume) 3.41 4.3 - 5.7 07/07/2018 [facility] [place] [facility] Blood hemoglobin measurement (moles/volume) 9.7 14.0 - 18.0 07/07/2018 [facility] [place] [facility] Automated blood hematocrit (volume fraction) 30.7 38.2 - 49.6 07/07/2018 [facility] [place] [facility] Automated erythrocyte mean corpuscular volume 90.0 81 - 99 07/07/2018 [facility] [place] [facility] Automated erythrocyte mean corpuscular hemoglobin (mass per erythrocyte) 28.4 28 - 32 07/07/2018 [facility] [place] [facility] Automated erythrocyte mean corpuscular hemoglobin concentration measurement (mass/volume) 31.6 31 - 35 07/07/2018 [facility] [place] [facility] RDW BldCo-Rto 18.1 11.7 - 14.4 07/07/2018 [facility] [place] [facility] Automated blood platelet count (count/volume) 269 140 - 360 07/07/2018 [facility] [place] [facility] Automated blood segmented neutrophil count as percentage of total leukocytes 79.5 38.7 - 80.0 07/07/2018 [facility] [place] [facility] Automated blood lymphocyte count as percentage ot total leukocytes 11.3 18.0 - 39.1 07/07/2018 [facility] [place] Automated blood monocyte count as percentage of total leukocytes 7.4 4.4 - 11.3 07/07/2018 [facility] [place] [facility] Automated blood eosinophil count as percentage of total leukocytes 0.5 0.0 - 6.0 07/07/2018 [facility] [place] Automated blood basophil count as percentage of total leukocytes 0.2 0.0 - 1.0 07/07/2018 [facility] [place] IM GRANULOCYTES % 1.1 0.0 - 1.0 07/07/2018 [facility] [place] [facility] Automated blood neutrophil count 7.0 2.1 - 6.9 07/07/2018 [facility] [place] [facility] Blood lymphocytes count (number/volume) 1.0 1.0 - 3.2 07/07/2018 [facility] [place] [facility] Blood monocytes automated count (number/volume) 0.7 0.2 - 0.8 07/07/2018 [facility] [place] [facility] Automated blood eosinophil count 0.0 0.0 - 0.4 07/07/2018 [facility] [place] [facility] Automated blood basophil count (count/volume) 0.0 0.0 - 0.1 07/07/2018 [facility] [place] [facility] Absolute Immature Granulocyte (auto 0.10 0 - 0.1 07/07/2018 [facility] [place] [facility] Serum or plasma sodium measurement (moles/volume) 136 136 - 145 07/07/2018 [facility] [place] [facility] Serum or plasma potassium measurement (moles/volume) 3.2 3.5 - 5.1 07/07/2018 [facility] [place] [facility] Serum or plasma chloride measurement (moles/volume) 95 98 - 107 07/07/2018 [facility] Serum or plasma carbon dioxide, total measurement (moles/volume) 31 22 - 29 07/07/2018 [facility] [place] [facility] Serum or plasma anion gap 13.2 8 - 16 07/07/2018 [facility] Serum or plasma urea nitrogen measurement (mass/volume) 63 7 - 26 07/07/2018 [facility] [place] [facility] Serum or plasma creatinine measurement (mass/volume) 2.13 0.72 - 1.25 07/07/2018 [facility] [place] [facility] Serum or plasma urea nitrogen/creatinine mass ratio 30 6 - 25 07/07/2018 [facility] Estimated glomerular filtration rate (GFR) determination 32 60 07/07/2018 [facility] [place] [facility] Glucose measurement 76 74 - 118 07/07/2018 [facility] [place] [facility] Serum or plasma calcium measurement (mass/volume) 8.7 8.4 - 10.2 07/07/2018 [facility] [place] [facility] Prothrombin time (PT) in platelet poor plasma by coagulation assay 33.5 11.9 - 14.5 07/05/2018 [facility] [place] [facility] INR in Platelet poor plasma by Coagulation assay 3.20 07/05/2018 [facility] [place] [facility] Serum or plasma total bilirubin measurement (mass/volume) 0.4 0.2 - 1.2 07/05/2018 [facility] [place] [facility] Aspartate Amino Transf (AST/SGOT) 25 5 - 34 07/05/2018 [facility] Serum or plasma alanine aminotransferase measurement (enzymatic activity/volume) 18 0 - 55 07/05/2018 [facility] [place] Serum or plasma protein measurement (mass/volume) 5.3 6.5 - 8.1 07/05/2018 [facility] [place] Serum or plasma albumin measurement (mass/volume) 1.5 3.5 - 5.0 07/05/2018 [facility] [place] [facility] Plasma globulin measurement (mass/volume) 3.8 2.3 - 3.5 07/05/2018 [facility] [place] [facility] Serum or plasma albumin/globulin mass ratio 0.4 0.8 - 2.0 07/05/2018 [facility] [place] [facility] Serum or plasma alkaline phosphatase measurement (enzymatic activity/volume) 140 40 - 150 07/05/2018 [facility] [place] [facility] Activated partial thromboplastin time (aPTT) in platelet poor plasma bycoagulation assay 43.4 23.8 - 35.5 06/29/2018 [facility] [place] [facility] Differential Total Cells Counted 100 06/29/2018 [facility] [place] [facility] Manual blood neutrophils/100 leukocytes 85 40 - 74 06/29/2018 [facility] [place] [facility] Manual blood lymphocytes/100 leukocytes 8 19 - 48 06/29/2018 [facility] [place] [facility] Manual blood monocytes/100 leukocytes 7 3.4 - 9.0 06/29/2018 [facility] [place] [facility] Blood platelets count by estimate (number/volume) ADEQUATE 06/29/2018 [facility] [place] [facility] Platelet morphology NORMAL 06/29/2018 [facility] Blood anisocytosis detection by light microscopy SLIGHT 06/29/2018 [facility] [place] [facility] RBC morphology NORMAL 06/29/2018 [facility] [place] [facility] Specimen source identification of body fluid PLEURAL 06/25/2018 [facility] Evaluation of color of body fluid YELLOW 06/25/2018 [facility] Determination of appearance of body fluid SL.CLOUDY 06/25/2018 [facility] [place] [facility] Manual body fluid leukocytes count (number/volume) 158 06/25/2018 [facility] [place] [facility] Manual body fluid erythrocytes count (number/volume) 42 06/25/2018 [facility] [place] [facility] Manual body fluid neutrophils/100 leukocytes 78 06/25/2018 [facility] [place] [facility] Body fluid lymphocyte count 2 06/25/2018 [facility] [place] [facility] Body fluid monocyte count 3 06/25/2018 [facility] Body fluid other cells manual count 17 06/25/2018 [facility] Total cell count 100 06/25/2018 [facility] [place] [facility] Body fluid protein measurement (mass/volume) 0.9 06/25/2018 [facility] [place] [facility] Body fluid lactate dehydrogenase measurement (enzymatic activity/volume) 72 06/25/2018 [facility] Serum or plasma iron measurement (mass/volume) 13 65 - 175 06/24/2018 [facility] Serum or plasma transferrin measurement (mass/volume) < 70 174 - 364 06/24/2018 [facility] Serum or plasma ferritin measurement (mass/volume) 1897.52 21.81 - 274.66 06/24/2018 [facility] BNP Bld-mCnc 1388.0 0 - 100 06/24/2018 [facility] [place] [facility] Blood culture NO GROWTH AFTER 5 DAYS, FINAL REPORT 06/23/2018 [facility] Stool gastrointestinal hemoglobin detection NEGATIVE NEGATIVE 06/23/2018 [facility] Urine color determination YELLOW YELLOW 06/22/2018 [facility] Urine clarity HAZY CLEAR 06/22/2018 [facility] Specific gravity of Urine by Test strip 1.015 1.010 - 1.025 06/22/2018 [facility] Urine pH measurement by automated test strip 6 5 - 7 06/22/2018 [facility] Urine leukocyte esterase detection by dipstick 1+ NEGATIVE 06/22/2018 [facility] Urine nitrite detection NEGATIVE NEGATIVE 06/22/2018 [facility] Urine protein measurement by test strip (mass/volume) NEGATIVE NEGATIVE 06/22/2018 [facility] [place] [facility] Urine glucose detection NEGATIVE NEGATIVE 06/22/2018 [facility] Urine ketones detection by automated test strip NEGATIVE NEGATIVE 06/22/2018 [facility] Urine urobilinogen measurement by test strip (mass/volume) 0.2 0.2 - 1 06/22/2018 [facility] [place] [facility] Urine total bilirubin measurement (mass/volume) NEGATIVE NEGATIVE 06/22/2018 [facility] [place] [facility] Urine erythrocytes detection TRACE NEGATIVE 06/22/2018 [facility] [place] [facility] Automated urine sediment leukocyte count by microscopy (number/high power field) >50 0 - 5 06/22/2018 [facility] [place] [facility] Erythrocytes detection in urine sediment by light microscopy 11-20 0 - 5 06/22/2018 [facility] [place] [facility] Bacteria detection in urine sediment by light microscopy MANY NONE 06/22/2018 [facility] Epithelial cells detection in urine sediment by light microscopy MANY NONE 06/22/2018 [facility] Yeast detection in urine sediment by light microscopy MANY NONE 06/22/2018 [facility] [place] [facility] Serum or plasma creatine kinase measurement (enzymatic activity/volume) 9 30 - 200 06/22/2018 [facility] [place] [facility] Serum or plasma creatine kinase MB measurement (mass/volume) 0.50 0 - 5.0 06/22/2018 [facility] Troponin I measurement by highly sensitive enzyme immunoassay 0.052 0 - 0.300 06/22/2018 [facility] [place] [facility] Blood sugar Blood sugar 162 06/22/2018 SNF: [facility] Blood sugar Blood sugar 183 06/22/2018 SNF: [facility] Blood sugar Blood sugar 183 06/22/2018 SNF: [facility] Blood sugar Blood sugar 188 06/22/2018 SNF: [facility] Blood sugar Blood sugar 178 06/21/2018 SNF: [facility] Blood sugar Blood sugar 162 06/21/2018 SNF: [facility] Blood sugar Blood sugar 165 06/21/2018 SNF: [facility] Blood sugar Blood sugar 165 06/21/2018 SNF: [facility] Blood sugar Blood sugar 200 06/21/2018 SNF: [facility] Blood sugar Blood sugar 146 06/20/2018 SNF: [facility] Blood sugar Blood sugar 146 06/20/2018 SNF: [facility] Blood sugar Blood sugar 164 06/20/2018 SNF: [facility] Blood sugar Blood sugar 188 06/20/2018 SNF: [facility] Blood sugar Blood sugar 213 06/19/2018 SNF: [facility] Blood sugar Blood sugar 244 06/19/2018 SNF: [facility] Blood sugar Blood sugar 246 06/19/2018 SNF: [facility] Blood sugar Blood sugar 246 06/19/2018 SNF: [facility] Blood sugar Blood sugar 287 06/19/2018 SNF: [facility] Blood sugar Blood sugar 311 06/18/2018 SNF: [facility] Blood sugar Blood sugar 373 06/18/2018 SNF: [facility] Procalcitonin (PCT) level 0.35 0.00 - 0.08 06/17/2018 [facility] Serum or plasma cortisol measurement on morning peak specimen (mass/volume) 19.7 6.2 - 19.4 06/17/2018 [facility] Manual blood band neutrophils form/100 leukocytes 3 06/14/2018 [facility] [place] [facility] Serum or plasma magnesium measurement (mass/volume) 1.5 1.3 - 2.1 06/13/2018 [facility] [place] [facility] Manual blood eosinophil count as percentage of total leukocytes 1 0 - 7 06/12/2018 [facility] Manual blood metamyelocytes/100 leukocytes 4 0 - 0 06/12/2018 [facility] Blood toxic granules detection by light microscopy MODERATE 06/12/2018 [facility] Blood dohle body detection by light microscopy FEW 06/12/2018 [facility] Albumin (PEP) 2.8 2.9 - 4.4 06/12/2018 [facility] Serum or plasma alpha 1 globulin measurement by electrophoresis (mass/volume) 0.2 0.0 - 0.4 06/12/2018 [facility] [place] [facility] Serum or plasma alpha 2 globulin measurement by electrophoresis (mass/volume) 0.7 0.4 - 1.0 06/12/2018 [facility] [place] [facility] Serum or plasma beta globulin measurement by electrophoresis (mass/volume) 0.5 0.7 - 1.3 06/12/2018 [facility] [place] [facility] Serum or plasma gamma globulin measurement by electrophoresis (mass/volume) 0.7 0.4 - 1.8 06/12/2018 [facility] [place] [facility] Serum or plasma protein measurement (mass/volume) 4.8 6.0 - 8.5 06/12/2018 [facility] [place] [facility] Serum globulin measurement by calculation (mass/volume) 2.0 2.2 - 3.9 06/12/2018 [facility] Serum immunoglobulin kappa light chains measurement (mass/volume) 34.2 3.3 - 19.4 06/12/2018 [facility] [place] [facility] Serum or plasma immunoglobulin free lambda light chains measurement (mass/volume) 21.3 5.7 - 26.3 06/12/2018 [facility] [place] [facility] Serum immunoglobulin kappa light chains/immunoglobulin lambda light chains mass ratio 1.61 0.26 - 1.65 06/12/2018 [facility] Serum or plasma protein monoclonal measurement by electrophoresis (mass/volume) Not Observed Not Observed 06/12/2018 [facility] [place] [facility] Serum or plasma albumin/globulin mass ratio 1.4 0.7 - 1.7 06/12/2018 [facility] Protein Electrophoresis Note Comment . 06/12/2018 [facility] Manual blood myelocytes/100 leukocytes 4 0 - 0 06/11/2018 [facility] Blood promyelocytes/100 leukocytes 1 0 - 0 06/11/2018 [facility] [place] [facility] Blood lymphocytes variant count (number/volume) 1 06/11/2018 [facility] Blood hypochromia detection by light microscopy SLIGHT 06/11/2018 [facility] Serum or plasma iron binding capacity measurement (mass/volume) 112 261 - 478 06/10/2018 [facility] [place] [facility] Serum or plasma iron saturation measurement (mass fraction) 74 15 - 50 06/10/2018 [facility] Blood poikilocytosis detection by light microscopy SLIGHT 06/09/2018 [facility] [place] [facility] Lactic Acid Level 17.6 4.5 - 19.8 06/08/2018 [facility] [place] [facility] Blood microcytes detection by light microscopy SLIGHT 06/08/2018 [facility] Blood ovalocytes detection by light microscopy FEW 06/08/2018 [facility] [place] [facility] Serum or plasma homocysteine measurement (moles/volume) 9.6 0.0 - 15.0 06/07/2018 [facility] [place] [facility] Serum or plasma methylmalonate measurement (moles/volume) 450 06/07/2018 [facility] [place] [facility] Fibrin D-dimer DDU measurement in platelet poor plasma (mass/volume) 383 0 - 400 06/07/2018 [facility] [place] [facility] Fibrinogen measurement in platelet poor plasma by coagulation assay (mass/volume) 215 204 - 462 06/07/2018 [facility] [place] [facility] Fibrin+fibrinogen fragments measurement (units/volume) in platelet poor plasma by latex agglutination <5 <5 06/07/2018 [facility] Clostridium difficile A and B toxin assay NEGATIVE NEGATIVE 06/06/2018 [facility] Phosphorus measurement 3.1 2.3 - 4.7 06/06/2018 [facility] Serum or plasma lactate dehydrogenase measurement (enzymatic activity/volume) 200 125 - 220 06/06/2018 [facility] Elliptocyte detection SLIGHT 06/06/2018 [facility] Blood cobalamin (vitamin B12) measurement (mass/volume) 361 213 - 816 06/05/2018 [facility] [place] [facility] Serum or plasma folate measurement (mass/volume) 5.1 7.0 - 15.4 06/05/2018 [facility] [place] [facility] Serum or plasma thyrotropin measurement by detection limit <=0.005 miu/l (units/volume) 1.760 0.350 - 4.940 06/05/2018 [facility] [place] [facility] Urine Legionella pneumophila 1 antigen detection by immunoassay Negative Negative 06/04/2018 [facility] Arterial blood pH measurement 7.37 7.31 - 7.41 06/04/2018 [facility] pCO2 BldA 28 41 - 51 06/04/2018 [facility] [place] [facility] pCO2 BldA 67 80 - 105 06/04/2018 [facility] [place] [facility] Arterial blood bicarbonate measurement (moles/volume) 16 23 - 28 06/04/2018 [facility] Arterial blood base excess by calculation -9.0 -2 - 3 - 2 06/04/2018 [facility] Arterial blood oxygen saturation measurement 93.0 95 - 98 06/04/2018 [facility] FiO2 21 06/04/2018 [facility] Transitional cells detection in urine sediment by light microscopy MANY NONE 06/02/2018 [facility] [place] [facility] Influenza virus A and B antigen identification by immunofluorescence NEGATIVE NEGATIVE 06/02/2018 [facility] Ammonia Ser-mCnc 32 31 - 123 05/23/2018 [facility] Blood sugar Blood sugar 116 04/08/2018 SNF: [facility] Blood sugar Blood sugar 116 04/08/2018 SNF: [facility] Blood sugar Blood sugar 116 04/08/2018 SNF: [facility] Blood sugar Blood sugar 116 04/08/2018 SNF: [facility] Blood sugar Blood sugar 302 04/08/2018 SNF: [facility] Blood sugar Blood sugar 302 04/08/2018 SNF: [facility] Blood sugar Blood sugar 337 04/07/2018 SNF: [facility] Blood sugar Blood sugar 127 04/07/2018 SNF: [facility] Blood sugar Blood sugar 337 04/07/2018 SNF: [facility] Blood sugar Blood sugar 127 04/07/2018 SNF: [facility] Blood sugar Blood sugar 127 04/07/2018 SNF: [facility] Blood sugar Blood sugar 127 04/07/2018 SNF: [facility] Blood sugar Blood sugar 115 04/07/2018 SNF: [facility] Blood sugar Blood sugar 115 04/07/2018 SNF: [facility] Blood sugar Blood sugar 116 04/07/2018 SNF: [facility] Blood sugar Blood sugar 116 04/07/2018 SNF: [facility] Blood sugar Blood sugar 253 04/07/2018 SNF: [facility] Blood sugar Blood sugar 253 04/07/2018 SNF: [facility] Blood sugar Blood sugar 253 04/07/2018 SNF: [facility] Blood sugar Blood sugar 253 04/07/2018 SNF: [facility] Blood sugar Blood sugar 244 04/06/2018 SNF: [facility] Blood sugar Blood sugar 244 04/06/2018 SNF: [facility] Blood sugar Blood sugar 244 04/06/2018 SNF: [facility] Blood sugar Blood sugar 244 04/06/2018 SNF: [facility] Blood sugar Blood sugar 185 04/06/2018 SNF: [facility] Blood sugar Blood sugar 185 04/06/2018 SNF: [facility] Blood sugar Blood sugar 185 04/06/2018 SNF: [facility] Blood sugar Blood sugar 185 04/06/2018 SNF: [facility] Blood sugar Blood sugar 144 04/06/2018 SNF: [facility] Blood sugar Blood sugar 144 04/06/2018 SNF: [facility] Blood sugar Blood sugar 144 04/06/2018 SNF: [facility] Blood sugar Blood sugar 144 04/06/2018 SNF: [facility] Blood sugar Blood sugar 141 04/06/2018 SNF: [facility] Blood sugar Blood sugar 141 04/06/2018 SNF: [facility] Blood sugar Blood sugar 141 04/06/2018 SNF: [facility] Blood sugar Blood sugar 141 04/06/2018 SNF: [facility] Blood sugar Blood sugar 237 04/05/2018 SNF: [facility] Blood sugar Blood sugar 237 04/05/2018 SNF: [facility] Blood sugar Blood sugar 237 04/05/2018 SNF: [facility] Blood sugar Blood sugar 237 04/05/2018 SNF: [facility] Blood sugar Blood sugar 212 04/05/2018 SNF: [facility] Blood sugar Blood sugar 212 04/05/2018 SNF: [facility] Blood sugar Blood sugar 143 04/05/2018 SNF: [facility] Blood sugar Blood sugar 143 04/05/2018 SNF: [facility] Blood sugar Blood sugar 242 04/05/2018 SNF: [facility] Blood sugar Blood sugar 242 04/05/2018 SNF: [facility] Blood sugar Blood sugar 242 04/05/2018 SNF: [facility] Blood sugar Blood sugar 242 04/05/2018 SNF: [facility] Blood sugar Blood sugar 169 04/04/2018 SNF: [facility] Blood sugar Blood sugar 169 04/04/2018 SNF: [facility] Blood sugar Blood sugar 169 04/04/2018 SNF: [facility] Blood sugar Blood sugar 169 04/04/2018 SNF: [facility] Blood sugar Blood sugar 120 04/04/2018 SNF: [facility] Blood sugar Blood sugar 120 04/04/2018 SNF: [facility] Blood sugar Blood sugar 167 04/04/2018 SNF: [facility] Blood sugar Blood sugar 167 04/04/2018 SNF: [facility] Blood sugar Blood sugar 167 04/04/2018 SNF: [facility] Blood sugar Blood sugar 167 04/04/2018 SNF: [facility] Blood sugar Blood sugar 224 04/04/2018 SNF: [facility] Blood sugar Blood sugar 224 04/04/2018 SNF: [facility] Blood sugar Blood sugar 224 04/04/2018 SNF: [facility] Blood sugar Blood sugar 224 04/04/2018 SNF: [facility] Blood sugar Blood sugar 152 04/04/2018 SNF: [facility] Blood sugar Blood sugar 152 04/04/2018 SNF: [facility] Blood sugar Blood sugar 152 04/03/2018 SNF: [facility] Blood sugar Blood sugar 152 04/03/2018 SNF: [facility] Blood sugar Blood sugar 240 04/03/2018 SNF: [facility] Blood sugar Blood sugar 240 04/03/2018 SNF: [facility] Blood sugar Blood sugar 240 04/03/2018 SNF: [facility] Blood sugar Blood sugar 240 04/03/2018 SNF: [facility] Blood sugar Blood sugar 245 04/03/2018 SNF: [facility] Blood sugar Blood sugar 245 04/03/2018 SNF: [facility] Blood sugar Blood sugar 240 04/03/2018 SNF: [facility] Blood sugar Blood sugar 240 04/03/2018 SNF: [facility] Blood sugar Blood sugar 240 04/03/2018 SNF: [facility] Blood sugar Blood sugar 240 04/03/2018 SNF: [facility] Blood sugar Blood sugar 154 04/02/2018 SNF: [facility] Blood sugar Blood sugar 154 04/02/2018 SNF: [facility] Blood sugar Blood sugar 154 04/02/2018 SNF: [facility] Blood sugar Blood sugar 154 04/02/2018 SNF: [facility] Blood sugar Blood sugar 187 04/02/2018 SNF: [facility] Blood sugar Blood sugar 187 04/02/2018 SNF: [facility] Blood sugar Blood sugar 256 04/02/2018 SNF: [facility] Blood sugar Blood sugar 256 04/02/2018 SNF: [facility] Blood sugar Blood sugar 256 04/02/2018 SNF: [facility] Blood sugar Blood sugar 256 04/02/2018 SNF: [facility] Blood sugar Blood sugar 198 04/01/2018 SNF: [facility] Blood sugar Blood sugar 198 04/01/2018 SNF: [facility] Blood sugar Blood sugar 130 04/01/2018 SNF: [facility] Blood sugar Blood sugar 130 04/01/2018 SNF: [facility] Blood sugar Blood sugar 130 04/01/2018 SNF: [facility] Blood sugar Blood sugar 130 04/01/2018 SNF: [facility] Blood sugar Blood sugar 113 04/01/2018 SNF: [facility] Blood sugar Blood sugar 113 04/01/2018 SNF: [facility] Blood sugar Blood sugar 113 04/01/2018 SNF: [facility] Blood sugar Blood sugar 113 04/01/2018 SNF: [facility] Blood sugar Blood sugar 365 04/01/2018 SNF: [facility] Blood sugar Blood sugar 365 04/01/2018 SNF: [facility] Blood sugar Blood sugar 365 04/01/2018 SNF: [facility] Blood sugar Blood sugar 365 04/01/2018 SNF: [facility] Blood sugar Blood sugar 209 03/31/2018 SNF: [facility] Blood sugar Blood sugar 209 03/31/2018 SNF: [facility] Blood sugar Blood sugar 209 03/31/2018 SNF: [facility] Blood sugar Blood sugar 209 03/31/2018 SNF: [facility] Blood sugar Blood sugar 187 03/31/2018 SNF: [facility] Blood sugar Blood sugar 187 03/31/2018 SNF: [facility] Blood sugar Blood sugar 120 03/31/2018 SNF: [facility] Blood sugar Blood sugar 120 03/31/2018 SNF: [facility] Blood sugar Blood sugar 315 03/31/2018 SNF: [facility] Blood sugar Blood sugar 315 03/31/2018 SNF: [facility] Blood sugar Blood sugar 315 03/31/2018 SNF: [facility] Blood sugar Blood sugar 315 03/31/2018 SNF: [facility] Blood sugar Blood sugar 348 03/30/2018 SNF: [facility] Blood sugar Blood sugar 348 03/30/2018 SNF: [facility] Blood sugar Blood sugar 348 03/30/2018 SNF: [facility] Blood sugar Blood sugar 348 03/30/2018 SNF: [facility] Blood sugar Blood sugar 178 03/30/2018 SNF: [facility] Blood sugar Blood sugar 178 03/30/2018 SNF: [facility] Blood sugar Blood sugar 178 03/30/2018 SNF: [facility] Blood sugar Blood sugar 178 03/30/2018 SNF: [facility] Blood sugar Blood sugar 206 03/30/2018 SNF: [facility] Blood sugar Blood sugar 206 03/30/2018 SNF: [facility] Blood sugar Blood sugar 163 03/30/2018 SNF: [facility] Blood sugar Blood sugar 163 03/30/2018 SNF: [facility] Blood sugar Blood sugar 163 03/30/2018 SNF: [facility] Blood sugar Blood sugar 163 03/30/2018 SNF: [facility] Blood sugar Blood sugar 206 03/29/2018 SNF: [facility] Blood sugar Blood sugar 206 03/29/2018 SNF: [facility] Blood sugar Blood sugar 206 03/29/2018 SNF: [facility] Blood sugar Blood sugar 206 03/29/2018 SNF: [facility] Blood sugar Blood sugar 274 03/29/2018 SNF: [facility] Blood sugar Blood sugar 274 03/29/2018 SNF: [facility] Blood sugar Blood sugar 155 03/29/2018 SNF: [facility] Blood sugar Blood sugar 155 03/29/2018 SNF: [facility] Blood sugar Blood sugar 155 03/29/2018 SNF: [facility] Blood sugar Blood sugar 155 03/29/2018 SNF: [facility] Blood sugar Blood sugar 213 03/29/2018 SNF: [facility] Blood sugar Blood sugar 213 03/29/2018 SNF: [facility] Blood sugar Blood sugar 213 03/29/2018 SNF: [facility] Blood sugar Blood sugar 213 03/29/2018 SNF: [facility] Blood sugar Blood sugar 164 03/28/2018 SNF: [facility] Blood sugar Blood sugar 164 03/28/2018 SNF: [facility] Blood sugar Blood sugar 164 03/28/2018 SNF: [facility] Blood sugar Blood sugar 164 03/28/2018 SNF: [facility] Blood sugar Blood sugar 245 03/28/2018 SNF: [facility] Blood sugar Blood sugar 245 03/28/2018 SNF: [facility] Blood nucleated erythrocytes count (number/volume) 2 03/14/2018 [facility] Erythrocyte sedimentation rate by Westergren method 28 0 - 13 02/23/2018 [facility] Hemoglobin A1c Percent 8.1 4.0 - 7.0 02/23/2018 [facility] Serum or plasma triglyceride measurement (mass/volume) 135 0 - 149 02/23/2018 [facility] Serum or plasma cholesterol measurement (mass/volume) 153 0 - 199 02/23/2018 [facility] Serum or plasma cholesterol in LDL measurement (mass/volume) 84 60 - 130 02/23/2018 [facility] Serum or plasma cholesterol in HDL measurement (mass/volume) 42 40 - 60 02/23/2018 [facility] Serum or plasma total cholesterol/cholesterol in HDL mass ratio 3.6 3.9 - 4.7 02/23/2018 [facility] Bacteria identification in wound by culture Organism: PSEUDOMONAS AERUGINOSA 02/23/2018 [facility] Serum or plasma uric acid measurement (mass/volume) 10.6 4.8 - 8.0 01/05/2018 [facility] Bacterial urine culture Urine Culture [facility] Pathology Reports No Data Provided for This Section Diagnostic Reports No Data Provided for This Section Consultation Notes No Data Provided for This Section Discharge Summaries No Data Provided for This Section History and Physicals No Data Provided for This Section Vital Signs Vital Sign Value Date Comments Source Respitory Rate 17 06/22/2018 SNF: [facility] Systolic (mm Hg) 94 06/22/2018 SNF: [facility] Diastolic (mm Hg) 53 06/22/2018 SNF: [facility] Temperature Oral (F) 97.5 F 06/22/2018 SNF: [facility] Heart Rate 86 {beats}/min 06/22/2018 SNF: [facility] Systolic (mm Hg) 94 06/22/2018 SNF: [facility] Diastolic (mm Hg) 53 06/22/2018 SNF: [facility] Heart Rate 84 {beats}/min 06/22/2018 SNF: [facility] Respitory Rate 18 06/22/2018 SNF: [facility] Systolic (mm Hg) 135 06/22/2018 SNF: [facility] Diastolic (mm Hg) 73 06/22/2018 SNF: [facility] Temperature Oral (F) 97 F 06/22/2018 SNF: [facility] Heart Rate 68 {beats}/min 06/22/2018 SNF: [facility] Systolic (mm Hg) 135 06/22/2018 [facility] Diastolic (mm Hg) 78 06/22/2018 SNF: [facility] Heart Rate 68 {beats}/min 06/22/2018 SNF: [facility] Systolic (mm Hg) 135 06/22/2018 [facility] Diastolic (mm Hg) 78 06/22/2018 SNF: [facility] Heart Rate 68 {beats}/min 06/22/2018 SNF: [facility] Respitory Rate 18 06/22/2018 SNF: [facility] Systolic (mm Hg) 139 06/22/2018 SNF: [facility] Diastolic (mm Hg) 76 06/22/2018 SNF: [facility] Temperature Oral (F) 97.7 F 06/22/2018 SNF: [facility] Heart Rate 75 {beats}/min 06/22/2018 SNF: [facility] Systolic (mm Hg) 132 06/21/2018 SNF: [facility] Diastolic (mm Hg) 68 06/21/2018 SNF: [facility] Heart Rate 80 {beats}/min 06/21/2018 SNF: [facility] Systolic (mm Hg) 132 06/21/2018 SNF: [facility] Diastolic (mm Hg) 68 06/21/2018 SNF: [facility] Heart Rate 80 {beats}/min 06/21/2018 SNF: [facility] Respitory Rate 18 06/21/2018 SNF: [facility] Systolic (mm Hg) 138 06/21/2018 SNF: [facility] Diastolic (mm Hg) 76 06/21/2018 SNF: [facility] Temperature Oral (F) 97.7 F 06/21/2018 SNF: [facility] Heart Rate 73 {beats}/min 06/21/2018 [facility] Respitory Rate 18 06/21/2018 [facility] Systolic (mm Hg) 114 06/21/2018 [facility] [place] Diastolic (mm Hg) 52 06/21/2018 [facility] Temperature Oral (F) 97.8 F 06/21/2018 SNF: [facility] Heart Rate 81 {beats}/min 06/21/2018 [facility] [place] Systolic (mm Hg[facility] 135 06/21/2018 [facility] [place] Diastolic (mm Hg) 77 06/21/2018 [facility] Heart Rate 80 {beats}/min 06/21/2018 [facility] [place] Systolic (mm Hg) 135 06/21/2018 [facility] Diastolic (mm Hg) 77 06/21/2018 SNF: [facility] Heart Rate 68 {beats}/min 06/21/2018 [facility] Respitory Rate 18 06/20/2018 [facility] Systolic (mm Hg) 137 06/20/2018 [facility] [place] Diastolic (mm Hg) 76 06/20/2018 SNF: [facility] Temperature Oral (F) 97.9 F 06/20/2018 SNF: [facility] Heart Rate 73 {beats}/min 06/20/2018 [facility] [place] Systolic (mm Hg) 130 06/20/2018 [facility] Diastolic (mm Hg) 86 06/20/2018 SNF: [facility] Heart Rate 75 {beats}/min 06/20/2018 [facility] Respitory Rate 18 06/20/2018 [facility] [place] Systolic (mm Hg) 134 06/20/2018 [facility] [place] Diastolic (mm Hg) 62 06/20/2018 SNF: [facility] Temperature Oral (F) 98.1 F 06/20/2018 SNF: [facility] Heart Rate 76 {beats}/min 06/20/2018 SNF: [facility] Systolic (mm Hg) 130 06/20/2018 SNF: [facility] Diastolic (mm Hg) 86 06/20/2018 SNF: [facility] Heart Rate 75 {beats}/min 06/20/2018 SNF: [facility] [place] Respitory Rate 18 06/20/2018 SNF: [facility] Systolic (mm Hg) 125 06/20/2018 SNF: [facility] [place] Diastolic (mm Hg) 65 06/20/2018 SNF: [facility] Temperature Oral (F) 97.5 F 06/20/2018 SNF: [facility] Heart Rate 90 {beats}/min 06/20/2018 [facility] Respitory Rate 18 06/20/2018 SNF: [facility] Systolic (mm Hg) 119 06/20/2018 [facility] Diastolic (mm Hg) 69 06/20/2018 SNF: [facility] Temperature Oral (F) 97.3 F 06/20/2018 SNF: [facility] Heart Rate 92 {beats}/min 06/20/2018 SNF: [facility] Systolic (mm Hg) 125 06/20/2018 SNF: [facility] Diastolic (mm Hg) 69 06/20/2018 SNF: [facility] Heart Rate 104 {beats}/min 06/20/2018 SNF: [facility] Systolic (mm Hg) 125 06/20/2018 SNF: [facility] Diastolic (mm Hg) 69 06/20/2018 SNF: [facility] Heart Rate 104 {beats}/min 06/20/2018 [facility] Respitory Rate 18 06/19/2018 [facility] Systolic (mm Hg) 157 06/19/2018 SNF: [facility] Diastolic (mm Hg) 84 06/19/2018 SNF: [facility] Temperature Oral (F) 97.6 F 06/19/2018 SNF: [facility] Heart Rate 75 {beats}/min 06/19/2018 SNF: [facility] Systolic (mm Hg) 157 06/19/2018 [facility] [place] Diastolic (mm Hg) 84 06/19/2018 [facility] Heart Rate 75 {beats}/min 06/19/2018 [facility] [place] Systolic (mm Hg) 157 06/19/2018 [facility] [place] Diastolic (mm Hg[facility] 84 06/19/2018 [facility] Heart Rate 75 {beats}/min 06/19/2018 [facility] [place] Respitory Rate 18 06/19/2018 [facility] [place] Systolic (mm Hg) 100 06/19/2018 [facility] [place] Diastolic (mm Hg) 64 06/19/2018 [facility]: [facility] Temperature Oral (F) 98 F 06/19/2018 [facility] Heart Rate 90 {beats}/min 06/19/2018 [facility]: [facility] Respitory Rate 18 06/19/2018 [facility] [place] Systolic (mm Hg) 113 06/19/2018 [facility] [place] Diastolic (mm Hg) 81 06/19/2018 SNF: [facility] Temperature Oral (F) 97.3 F 06/19/2018 SNF: [facility] Heart Rate 89 {beats}/min 06/19/2018 [facility]: [facility] [place] Systolic (mm Hg) 159 06/19/2018 [facility] [place] Diastolic (mm Hg) 74 06[facility]19/2018 [facility] Heart Rate 80 {beats}/min 06/19/2018 [facility] [place] Systolic (mm Hg) 159 06/19/2018 [facility] [place] Diastolic (mm Hg) 74 06/19/2018 [facility] [place] Heart Rate 80 {beats}/min 06/19/2018 [facility] [place] Respitory Rate 17 06/18/2018 [facility] [place] Systolic (mm Hg) 112 06/18/2018 [facility] [place] Diastolic (mm Hg) 62 06/18/2018 SNF: [facility] Temperature Oral (F) 98.5 F 06/18/2018 SNF: [facility] Heart Rate 96 {beats}/min 06/18/2018 SNF: [facility] [place] Systolic (mm Hg) 112 06/18/2018 SNF: [facility] Diastolic (mm Hg) 62 06/18/2018 SNF: [facility] Heart Rate 96 {beats}/min 06/18/2018 [facility] Systolic (mm Hg) 110 06/18/2018 SNF: [facility] Diastolic (mm Hg) 54 06/18/2018 SNF: [facility] Heart Rate 98 {beats}/min 06/18/2018 SNF: [facility] Weight 195.8 06/18/2018 SNF: [facility] Height 67 06/18/2018 [facility] Respitory Rate 18 06/18/2018 SNF: [facility] Systolic (mm Hg) 108 06/18/2018 SNF: [facility] Diastolic (mm Hg) 52 06/18/2018 SNF: [facility] Temperature Oral (F) 98.6 F 06/18/2018 SNF: [facility] Heart Rate 99 {beats}/min 06/18/2018 SNF: [facility] Systolic (mm Hg) 104 06/18/2018 SNF: [facility] Diastolic (mm Hg) 63 06/18/2018 SNF: [facility] Heart Rate 100 {beats}/min 06/18/2018 SNF: [facility] Systolic (mm Hg) 104 06/17/2018 SNF: [facility] Diastolic (mm Hg) 63 06/17/2018 SNF: [facility] Temperature Oral (F) 97.8 F 06/17/2018 SNF: [facility] Respitory Rate 19 06/17/2018 SNF: [facility] Heart Rate 100 {beats}/min 06/17/2018 [facility] Respitory Rate 18 04/08/2018 [facility] Systolic (mm Hg) 136 04/08/2018 SNF: [facility] Diastolic (mm Hg) 72 04/08/2018 SNF: [facility] Temperature Oral (F) 97.9 F 04/08/2018 SNF: [facility] Heart Rate 88 {beats}/min 04/08/2018 SNF: [facility] Respitory Rate 18 04/08/2018 SNF: [facility] Systolic (mm Hg) 136 04/08/2018 SNF: [facility] [place] Diastolic (mm Hg) 72 04/08/2018 SNF: [facility] Temperature Oral (F) 97.9 F 04/08/2018 SNF: [facility] Heart Rate 88 {beats}/min 04/08/2018 SNF: [facility] Weight 189 04/08/2018 SNF: [facility] Weight 189 04/08/2018 SNF: [facility] Respitory Rate 18 04/08/2018 SNF: [facility] Systolic (mm Hg) 146 04/08/2018 SNF: [facility] Diastolic (mm Hg) 59 04/08/2018 SNF: [facility] Temperature Oral (F) 98.6 F 04/08/2018 SNF: [facility] Heart Rate 89 {beats}/min 04/08/2018 SNF: [facility] Respitory Rate 18 04/08/2018 SNF: [facility] Systolic (mm Hg) 146 04/08/2018 SNF: [facility] Diastolic (mm Hg) 59 04/08/2018 SNF: [facility] Temperature Oral (F) 98.6 F 04/08/2018 SNF: [facility] Heart Rate 89 {beats}/min 04/08/2018 [facility] Respitory Rate 18 04/08/2018 SNF: [facility] [place] Systolic (mm Hg) 148 04/08/2018 SNF: [facility] Diastolic (mm Hg) 60 04/08/2018 SNF: [facility] Temperature Oral (F) 96.8 F 04/08/2018 SNF: [facility] Heart Rate 80 {beats}/min 04/08/2018 SNF: [facility] Respitory Rate 18 04/08/2018 SNF: [facility] [place] Systolic (mm Hg) 148 04/08/2018 SNF: [facility] [place] Diastolic (mm Hg) 60 04/08/2018 SNF: [facility] Temperature Oral (F) 96.8 F 04/08/2018 SNF: [facility] Heart Rate 80 {beats}/min 04/08/2018 SNF: [facility] Respitory Rate 18 04/07/2018 SNF: [facility] Systolic (mm Hg) 148 04/07/2018 SNF: [facility] [place] Diastolic (mm Hg) 60 04/07/2018 SNF: [facility] Temperature Oral (F) 96.8 F 04/07/2018 SNF: [facility] Heart Rate 80 {beats}/min 04/07/2018 SNF: [facility] Respitory Rate 18 04/07/2018 SNF: [facility] Systolic (mm Hg) 148 04/07/2018 SNF: [facility] Diastolic (mm Hg) 60 04/07/2018 SNF: [facility] Temperature Oral (F) 96.8 F 04/07/2018 SNF: [facility] Heart Rate 80 {beats}/min 04/07/2018 SNF: [facility] Respitory Rate 18 04/07/2018 SNF: [facility] Systolic (mm Hg) 151 04/07/2018 SNF: [facility] Diastolic (mm Hg) 59 04/07/2018 SNF: [facility] Temperature Oral (F) 96.4 F 04/07/2018 SNF: [facility] Heart Rate 82 {beats}/min 04/07/2018 SNF: [facility] Respitory Rate 18 04/07/2018 SNF: [facility] Systolic (mm Hg) 151 04/07/2018 SNF: [facility] Diastolic (mm Hg) 59 04/07/2018 SNF: [facility] Temperature Oral (F) 96.4 F 04/07/2018 SNF: [facility] Heart Rate 82 {beats}/min 04/07/2018 [facility] [place] Respitory Rate 18 04/07/2018 [facility] [place] Systolic (mm Hg) 128 04/07/2018 [facility] [place] Diastolic (mm Hg) 66 04/07/2018 [facility] [place] Temperature Oral (F) 98 F 04/07/2018 [facility] [place] Heart Rate 72 {beats}/min 04/07/2018 [facility] [place] Respitory Rate 18 04/07/2018 [facility] [place] Systolic (mm Hg) 128 04/07/2018 [facility] [place] Diastolic (mm Hg) 66 04[facility]07/2018 [facility] Temperature Oral (F) 98 F 04/07/2018 [facility] Heart Rate 72 {beats}/min 04/07/2018 [facility] [place] Respitory Rate 18 04[facility]06/2018 [facility] [place] Systolic (mm Hg) 125 04/06/2018 [facility] [place] Diastolic (mm Hg) 74 04/06/2018 [facility] Temperature Oral (F) 97.8 F 04/06/2018 SNF: [facility] Heart Rate 73 {beats}/min 04/06/2018 [facility] [place] Respitory Rate 18 04/06/2018 [facility] [place] Systolic (mm Hg[facility] 125 04/06/2018 [facility] [place] Diastolic (mm Hg) 74 04/06/2018 [facility] Temperature Oral (F) 97.8 F 04/06/2018 [facility] [place] Heart Rate 73 {beats}/min 04/06/2018 [facility] [place] Respitory Rate 18 04[facility]06/2018 [facility] [place] Systolic (mm Hg) 129 04/06/2018 [facility] [place] Diastolic (mm Hg) 83 04/06/2018 SNF: [facility] Temperature Oral (F) 98.3 F 04/06/2018 [facility] 66 {beats}/min 04/06/2018 [facility] [place] Respitory Rate 18 04[facility]06/2018 [facility] [place] Systolic (mm Hg) 129 04/06/2018 [facility]: [facility] [place] Diastolic (mm Hg) 83 04/06/2018 [facility] Temperature Oral (F) 98.3 F 04/06/2018 [facility]: [facility] [place] Heart Rate 66 {beats}/min 04/06/2018 [facility]: [facility] [place] Respitory Rate 17 04[facility]06/2018 [facility] [place] Systolic (mm Hg) 132 04/06/2018 [facility] [place] Diastolic (mm Hg) 74 04/06/2018 [facility] Temperature Oral (F) 98.8 F 04/06/2018 [facility] Heart Rate 70 {beats}/min 04/06/2018 [facility]: [facility] [place] Respitory Rate 17 04[facility]06/2018 [facility] [place] Systolic (mm Hg) 132 04/06/2018 [facility] [place] Diastolic (mm Hg) 74 04/06/2018 SNF: [facility] Temperature Oral (F) 98.8 F 04/06/2018 SNF: [facility] Heart Rate 70 {beats}/min 04/06/2018 [facility]: [facility] [place] Resp[facility] Rate 17 04[facility]06/2018 [facility] [place] Systolic (mm Hg) 132 04/06/2018 [facility] [place] Diastolic (mm Hg) 74 04/06/2018 [facility]: [facility] Temperature Oral (F) 98.8 F 04/06/2018 [facility] Heart Rate 70 {beats}/min 04/06/2018 [facility]: [facility] [place] Resp[place] Rate 17 04/06/2018 [facility]: [facility] [place] Systolic (mm Hg) 132 04/06/2018 [facility] Di[facility] ([facility] Hg) 74 04/06/2018 SNF: [facility] Temperature Oral (F) 98.8 F 04/06/2018 SNF: [facility] Heart Rate 70 {beats}/min 04/06/2018 SNF: [facility] [place] Respitory Rate 18 04/05/2018 SNF: [facility] Systolic (mm Hg) 138 04/05/2018 SNF: [facility] [place] Diastolic (mm Hg) 74 04/05/2018 SNF: [facility] Temperature Oral (F) 98.1 F 04/05/2018 SNF: [facility] Heart Rate 88 {beats}/min 04/05/2018 SNF: [facility] Respitory Rate 18 04/05/2018 SNF: [facility] Systolic (mm Hg) 138 04/05/2018 SNF: [facility] Diastolic (mm Hg) 74 04/05/2018 SNF: [facility] Temperature Oral (F) 98.1 F 04/05/2018 SNF: [facility] Heart Rate 88 {beats}/min 04/05/2018 SNF: [facility] [place] Respitory Rate 18 04/05/2018 SNF: [facility] [place] Systolic (mm Hg) 147 04/05/2018 SNF: [facility] [place] Diastolic (mm Hg) 65 04/05/2018 SNF: [facility] Temperature Oral (F) 97.5 F 04/05/2018 SNF: [facility] Heart Rate 87 {beats}/min 04/05/2018 SNF: [facility] Respitory Rate 18 04/05/2018 SNF: [facility] Systolic (mm Hg) 147 04/05/2018 SNF: [facility] [place] Diastolic (mm Hg) 65 04/05/2018 SNF: [facility] Temperature Oral (F) 97.5 F 04/05/2018 SNF: [facility] Heart Rate 87 {beats}/min 04/05/2018 SNF: [facility] Respitory Rate 17 04/05/2018 SNF: [facility] Systolic (mm Hg) 120 04/05/2018 SNF: [facility] Diastolic (mm Hg) 72 04/05/2018 SNF: [facility] Temperature Oral (F) 98.8 F 04/05/2018 SNF: [facility] Heart Rate 65 {beats}/min 04/05/2018 SNF: [facility] [place] Respitory Rate 17 04/05/2018 [facility]: [facility] [place] Systolic (mm Hg) 120 04/05/2018 SNF: [facility] [place] Diastolic (mm Hg) 72 04/05/2018 SNF: [facility] Temperature Oral (F) 98.8 F 04/05/2018 SNF: [facility] Heart Rate 65 {beats}/min 04/05/2018 SNF: [facility] Respitory Rate 17 04/05/2018 SNF: [facility] Systolic (mm Hg) 120 04/05/2018 SNF: [facility] Diastolic (mm Hg) 72 04/05/2018 SNF: [facility] Temperature Oral (F) 98.8 F 04/05/2018 SNF: [facility] Heart Rate 65 {beats}/min 04/05/2018 SNF: [facility] Respitory Rate 17 04/05/2018 SNF: [facility] Systolic (mm Hg) 120 04/05/2018 SNF: [facility] Diastolic (mm Hg) 72 04/05/2018 SNF: [facility] Temperature Oral (F) 98.8 F 04/05/2018 SNF: [facility] Heart Rate 65 {beats}/min 04/05/2018 [facility] [place] Resp[facility] Rate 18 04/04/2018 [facility] [place] Systolic (mm Hg) 125 04/04/2018 SNF: [facility] [place] Diastolic (mm Hg) 76 04/04/2018 SNF: [facility] Temperature Oral (F) 97.4 F 04/04/2018 SNF: [facility] Heart Rate 78 {beats}/min 04/04/2018 [facility]: [facility] [place] Respitory Rate 18 04/04/2018 SNF: [facility] Systolic (mm Hg) 125 04/04/2018 SNF: [facility] Diastolic (mm Hg) 76 04/04/2018 SNF: [facility] Temperature Oral (F) 97.4 F 04/04/2018 SNF: [facility] Heart Rate 78 {beats}/min 04/04/2018 SNF: [facility] Respitory Rate 18 04/04/2018 SNF: [facility] Systolic (mm Hg) 129 04/04/2018 SNF: [facility] Diastolic (mm Hg) 74 04/04/2018 SNF: [facility] Temperature Oral (F) 97.5 F 04/04/2018 SNF: [facility] Heart Rate 80 {beats}/min 04/04/2018 SNF: [facility] Respitory Rate 18 04/04/2018 SNF: [facility] Systolic (mm Hg) 129 04/04/2018 SNF: [facility] Diastolic (mm Hg) 74 04/04/2018 SNF: [facility] Temperature Oral (F) 97.5 F 04/04/2018 SNF: [facility] Heart Rate 80 {beats}/min 04/04/2018 SNF: [facility] Respitory Rate 17 04/04/2018 SNF: [facility] Systolic (mm Hg) 140 04/04/2018 SNF: [facility] Diastolic (mm Hg) 69 04/04/2018 SNF: [facility] Temperature Oral (F) 98.3 F 04/04/2018 SNF: [facility] Heart Rate 85 {beats}/min 04/04/2018 SNF: [facility] Respitory Rate 17 04/04/2018 SNF: [facility] Systolic (mm Hg) 140 04/04/2018 SNF: [facility] Diastolic (mm Hg) 69 04/04/2018 SNF: [facility] Temperature Oral (F) 98.3 F 04/04/2018 SNF: [facility] Heart Rate 85 {beats}/min 04/04/2018 [facility] Respitory Rate 17 04/04/2018 [facility] [place] Systolic (mm Hg) 159 04/04/2018 [facility] [place] Diastolic (mm Hg) 68 04/04/2018 [facility]: [facility] Temperature Oral (F) 98.6 F 04/04/2018 [facility]: [facility] [place] Heart Rate 85 {beats}/min 04/04/2018 SN[facility]: [facility] [place] Respitory Rate 17 04/03/2018 [facility]: [facility] [place] Systolic (mm Hg) 159 04/03/2018 [facility] [place] Diastolic (mm Hg) 68 04/03/2018 [facility]: [facility] Temperature Oral (F) 98.6 F 04/03/2018 [facility] Heart Rate 85 {beats}/min 04/03/2018 [facility]: [facility] [place] Heart Rate 62 {beats}/min 04/03/2018 SNF: [facility] Heart Rate 62 {beats}/min 04/03/2018 [facility]: [facility] Respitory Rate 20 04/03/2018 [facility]: [facility] [place] Systolic (mm Hg) 141 04/03/2018 [facility]: [facility] [place] Diastolic (mm Hg) 78 04/03/2018 [facility] Temperature Oral (F) 97.9 F 04/03/2018 [facility] Heart Rate 79 {beats}/min 04/03/2018 [facility]: [facility] Respitory Rate 20 04/03/2018 [facility]: [facility] [place] Systolic (mm Hg) 141 04/03/2018 [facility]: [facility] [place] Diastolic (mm Hg) 78 04/03/2018 [facility]: [facility] Temperature Oral (F) 97.9 F 04/03/2018 [facility] [place] Heart Rate 79 {beats}/min 04/03/2018 [facility]: [facility] [place] Respitory Rate 20 04/02/2018 [facility]: [facility] Systolic (mm Hg) 126 04/02/2018 SNF: [facility] Diastolic (mm Hg) 73 04/02/2018 SNF: [facility] Temperature Oral (F) 98.2 F 04/02/2018 SNF: [facility] Heart Rate 64 {beats}/min 04/02/2018 SNF: [facility] Respitory Rate 20 04/02/2018 SNF: [facility] Systolic (mm Hg) 126 04/02/2018 SNF: [facility] Diastolic (mm Hg) 73 04/02/2018 SNF: [facility] Temperature Oral (F) 98.2 F 04/02/2018 SNF: [facility] Heart Rate 64 {beats}/min 04/02/2018 SNF: [facility] Respitory Rate 20 04/02/2018 SNF: [facility] Systolic (mm Hg) 118 04/02/2018 SNF: [facility] Diastolic (mm Hg) 65 04/02/2018 SNF: [facility] Temperature Oral (F) 97.8 F 04/02/2018 SNF: [facility] Heart Rate 65 {beats}/min 04/02/2018 SNF: [facility] Respitory Rate 20 04/02/2018 SNF: [facility] Systolic (mm Hg) 118 04/02/2018 SNF: [facility] Diastolic (mm Hg) 65 04/02/2018 SNF: [facility] Temperature Oral (F) 97.8 F 04/02/2018 SNF: [facility] Heart Rate 65 {beats}/min 04/02/2018 SNF: [facility] Respitory Rate 20 04/01/2018 SNF: [facility] Temperature Oral (F) 97.9 F 04/01/2018 SNF: [facility] Respitory Rate 20 04/01/2018 SNF: [facility] Temperature Oral (F) 97.9 F 04/01/2018 SNF: [facility] Weight 191 04/01/2018 SNF: [facility] Weight 191 04/01/2018 SNF: [facility] Respitory Rate 18 04/01/2018 SNF: [facility] Systolic (mm Hg) 122 04/01/2018 [facility] [place] Diastolic (mm Hg) 70 04/01/2018 [facility]: [facility] Temperature Oral (F) 97.8 F 04/01/2018 [facility] Heart Rate 70 {beats}/min 04/01/2018 [facility]: [facility] [place] Respitory Rate 18 04[facility]01/2018 [facility] [place] Systolic (mm Hg) 122 04/01/2018 [facility] [place] Diastolic (mm Hg) 70 04/01/2018 [facility] Temperature Oral (F) 97.8 F 04/01/2018 [facility] Heart Rate 70 {beats}/min 04/01/2018 [facility]: [facility] Respitory Rate 18 04/01/2018 [facility]: [facility] Systolic (mm Hg) 122 04/01/2018 SN[facility]: [facility] [place] Diastolic (mm Hg) 70 04/01/2018 SNF: [facility] Temperature Oral (F) 97.8 F 04/01/2018 SNF: [facility] Heart Rate 70 {beats}/min 04/01/2018 [facility]: [facility] Respitory Rate 18 04/01/2018 [facility] Systolic (mm Hg) 122 04/01/2018 SN[facility]: [facility] [place] Diastolic (mm Hg) 70 04/01/2018 SNF: [facility] Temperature Oral (F) 97.8 F 04/01/2018 SNF: [facility] Heart Rate 70 {beats}/min 04/01/2018 [facility]: [facility] [place] Respitory Rate 18 04/01/2018 [facility] [place] Systolic (mm Hg) 124 04/01/2018 [facility] [place] Diastolic (mm Hg) 72 04/01/2018 [facility] Temperature Oral (F) 97.2 F 04/01/2018 SNF: [facility] Heart Rate 74 {beats}/min 04/01/2018 [facility] Systolic (mm Hg) 124 04/01/2018 [facility] [place] Diastolic (mm Hg) 72 04/01/2018 SNF: [facility] Temperature Oral (F) 97.2 F 04/01/2018 SNF: [facility] Heart Rate 74 {beats}/min 04/01/2018 SN[facility]: [facility] [place] Respitory Rate 18 03/31/2018 SNF: [facility] [place] Systolic (mm Hg) 122 03/31/2018 SNF: [facility] [place] Diastolic (mm Hg) 76 03/31/2018 SNF: [facility] Temperature Oral (F) 97.4 F 03/31/2018 SNF: [facility] Heart Rate 76 {beats}/min 03/31/2018 [facility] Respitory Rate 18 03/31/2018 SNF: [facility] Systolic (mm Hg) 122 03/31/2018 SNF: [facility] Diastolic (mm Hg) 76 03/31/2018 SNF: [facility] Temperature Oral (F) 97.4 F 03/31/2018 SNF: [facility] Heart Rate 76 {beats}/min 03/31/2018 SNF: [facility] Respitory Rate 16 03/31/2018 SNF: [facility] Systolic (mm Hg) 110 03/31/2018 SNF: [facility] Diastolic (mm Hg) 75 03/31/2018 SNF: [facility] Temperature Oral (F) 97.5 F 03/31/2018 SNF: [facility] Heart Rate 74 {beats}/min 03/31/2018 SNF: [facility] Respitory Rate 16 03/31/2018 SNF: [facility] Systolic (mm Hg) 110 03/31/2018 SNF: [facility] Diastolic (mm Hg) 75 03/31/2018 SNF: [facility] Temperature Oral (F) 97.5 F 03/31/2018 SNF: [facility] Heart Rate 74 {beats}/min 03/31/2018 [facility]: [facility] [place] Respitory Rate 16 03/31/2018 [facility]: [facility] [place] Systolic (mm Hg) 110 03/31/2018 [facility] [place] Diastolic (mm Hg) 75 03/31/2018 SNF: [facility] Temperature Oral (F) 97.5 F 03/31/2018 SNF: [facility] Heart Rate 78 {beats}/min 03/31/2018 [facility]: [facility] [place] Respitory Rate 16 03/31/2018 [facility]: [facility] [place] Systolic (mm Hg) 110 03/31/2018 [facility] [place] Diastolic (mm Hg) 75 03/31/2018 SNF: [facility] Temperature Oral (F) 97.5 F 03/31/2018 SNF: [facility] Heart Rate 78 {beats}/min 03/31/2018 SNF: [facility] Respitory Rate 18 03/30/2018 SNF: [facility] Systolic (mm Hg) 148 03/30/2018 SNF: [facility] [place] Diastolic (mm Hg) 74 03/30/2018 SNF: [facility] Temperature Oral (F) 97.6 F 03/30/2018 SNF: [facility] Heart Rate 77 {beats}/min 03/30/2018 SNF: [facility] Respitory Rate 18 03/30/2018 SNF: [facility] Systolic (mm Hg) 148 03/30/2018 SNF: [facility] Diastolic (mm Hg) 74 03/30/2018 SNF: [facility] Temperature Oral (F) 97.6 F 03/30/2018 SNF: [facility] Heart Rate 77 {beats}/min 03/30/2018 SNF: [facility] [place] Respitory Rate 18 03/29/2018 SNF: [facility] Systolic (mm Hg) 150 03/29/2018 [facility]: [facility] Diastolic (mm Hg) 82 03/29/2018 SNF: [facility] Temperature Oral (F) 98 F 03/29/2018 SNF: [facility] Heart Rate 74 {beats}/min 03/29/2018 SNF: [facility] Respitory Rate 18 03/29/2018 SNF: [facility] Systolic (mm Hg) 150 03/29/2018 SNF: [facility] Diastolic (mm Hg) 82 03/29/2018 SNF: [facility] Temperature Oral (F) 98 F 03/29/2018 SNF: [facility] Heart Rate 74 {beats}/min 03/29/2018 SNF: [facility] Respitory Rate 20 03/29/2018 SNF: [facility] Systolic (mm Hg) 144 03/29/2018 SNF: [facility] Diastolic (mm Hg) 75 03/29/2018 SNF: [facility] Temperature Oral (F) 98.2 F 03/29/2018 SNF: [facility] Heart Rate 80 {beats}/min 03/29/2018 SNF: [facility] Respitory Rate 20 03/29/2018 SNF: [facility] Systolic (mm Hg) 144 03/29/2018 SNF: [facility] Diastolic (mm Hg) 75 03/29/2018 SNF: [facility] Temperature Oral (F) 98.2 F 03/29/2018 SNF: [facility] Heart Rate 80 {beats}/min 03/29/2018 SNF: [facility] Weight 189 03/28/2018 SNF: [facility] Height 67 03/28/2018 SNF: [facility] Weight 189 03/28/2018 SNF: [facility] Height 67 03/28/2018 SNF: [facility] Respitory Rate 20 03/28/2018 SNF: [facility] Systolic (mm Hg) 139 03/28/2018 SNF: [facility] Diastolic (mm Hg) 62 03/28/2018 SNF: [facility] Temperature Oral (F) 98.3 F 03/28/2018 SNF: [facility] Heart Rate 82 {beats}/min 03/28/2018 SNF: [facility] Respitory Rate 20 03/28/2018 SNF: [facility] [...] DC Date Status Source Discharged Inpatient (obs) [id number] KALEB CHA MD 01/04/2018 01/06/2018 [facility] Discharged Inpatient [id number] KALEB CHA MD 02/23/2018 03/14/2018 [facility] Discharged Inpatient [id number] KALEB CHA MD 03/26/2018 03/27/2018 [facility] Discharged Inpatient (obs) [id number] KALEB CHA MD 05/04/2018 05/04/2018 [facility] Discharged Inpatient [id number] KALEB CHA MD 05/08/2018 05/15/2018 [facility] Discharged Inpatient (obs) [id number] KALEB CHA MD 05/23/2018 05/24/2018 [facility] Discharged Inpatient [id number] KALEB CHA MD 06/04/2018 06/17/2018 [facility] Discharged Inpatient [id number] KALEB CHA MD 06/22/2018 07/08/2018 [facility] Procedures Procedure Code Date Perfomer Comments Source CT of abdomen and pelvis without contrast [id number] 07/05/2018 [facility] X-ray of chest, two views [id number] 06/30/2018 [facility] Thoracentesis with ultrasound guidance [id number] 06/25/2018 [facility] X-ray of chest, two views [id number] 06/16/2018 [facility] TRANSFUSE NONAUT PLATELETS IN PERIPH VEIN, PERC [id number] 06/10/2018 [facility] TRANSFUSE NONAUT RED BLOOD CELLS IN PERIPH VEIN, PERC [id number] 06/06/2018 [facility] Computed tomography of chest without contrast [id number] 06/03/2018 [facility] X-ray of chest, single view [id number] 06/02/2018 [facility] Computed tomography of brain without radiopaque contrast [id number] 05/23/2018 [facility] X-ray of chest, single view [id number] 05/03/2018 [facility] X-ray of chest, single view [id number] 03/20/[address] [facility] [address] of abdomen and pelvis without contrast [id number] 03/04/2018 [facility] EXCISION OF R FOOT SUBCU/FASCIA, OPEN APPROACH [id number] [facility] [facility] [id number] 02/24/2018 [facility] [address] of abdomen and pelvis without contrast [id number] 02/23/2018 [facility] CT of abdomen and pelvis without contrast [id number] 01/05/2018 [facility] Computed tomography of chest without contrast [id number] 01/05/2018 [facility] X-ray of chest, two views [id number] 01/04/2018 [facility] Assessment and Plan No Data Provided for This Section Plan of Care Plan of Care Date Source Discharge Date 07/08/18 7:15pm Disposition HOME HEALTH SERVICE Instructions/Education Provided Anemia Pyelonephritis Prescriptions See Medication Section Additional Instructions/Education DO NOT GIVE ANY DIABETIC MEDICATION ,GLIPIZIDE WAS DISCONTINUED. FOLLOW UP WITH [facility] NEXT WEEK. 07/08/2018 [facility] Social History Social History Date Source Social [...] 02/09/2017 3:54pm Not Applicable Not Applicable 07/08/2018 [facility] Smoking StatusStart DateEnd Date Unknown if ever smoked 06/22/2018 18:57:39 06/08/2018 SNF: [facility] Family History Value Date Source Relationship [...] of hypertension Not Recorded 01/14/2017 3:25pm 07/08/2018 [facility] Advance Directives Order Name Results Value Date Source Advance Directives Advance Directives Directive Response Recorded Date/Time Does the patient have an advance directive? No 06/22/18 10:45pm If yes, is advance directive on file with [facility]? No 06/22/18 10:45pm If not on file with [facility] will patient provide a copy? No 06/22/18 10:45pm Do you have a Directive to Physician? Yes 06/22/18 5:34pm Do you have a Medical Power of Control Clerk Food And Beverage? Yes 06/22/18 5:34pm Do you have an [...] rights and responsibilities? Yes 06/22/18 5:34pm 07/08/2018 [facility] Advance Directives Advance Directives Cardiopulmonary Resuscitation 06/22/2018 SNF: [facility] Advance Directives Advance Directives Cardiopulmonary Resuscitation 04/08/2018 SNF: [facility] Functional Status No Data Provided for This Section
[2018-09-07] MEDS ORDERED: DEXTROSE 50% SYRINGE 50 ML IV PRN ×2 (07:15→08:30)
--- NOTE | 2018-09-07 07:22 | NUR ---
report given to CHANEL Palumbo at 0502
[2018-09-07] MEDS ORDERED: INSULIN REGULAR, HUMAN 100 UNIT/1 ML 3ML VIAL SQ SCH (07:30)
[2018-09-07 07:35] VITALS: BP 140/91
--- NOTE | 2018-09-07 07:35 | NUR ---
Pt received from ER via stretcher. Alert and oriented x3 but Legally blind. Pt is NPO due to Ileus. Oriented to staff and surroundings. Encouraged to press call cobos if help needed. Pt verbalized understanding of teaching. Will monitor
[2018-09-07 08:21] VITALS: BP 140/91
[2018-09-07] MEDS: METOPROLOL TARTRATE INJ 1 MG/ML VIAL IV SCH ×3 (08:45→20:59)
[2018-09-07 08:58] LABS: INR 1.24; PROTHROMBIN TIME 16.2 seconds (11.9-14.5)
[2018-09-07 09:15] VITALS: BP 140/91
--- NOTE | 2018-09-07 09:55 | NUR ---
Pt noted with Left heel unstageable wound and Right plantar foot Diabetic foot ulcer. Emotional support given. Call cobos within reach. Will monitor
[2018-09-07] MEDS: SODIUM CHLORIDE 0.9% 1000ML 1,000 ML IV SCH ×2 (11:36→20:59)
[2018-09-07] MEDS: LINEZOLID 600 MG/D5W 300ML 300 ML IV SCH ×2 (11:36→20:59)
[2018-09-07] MEDS: PANTOPRAZOLE 40 MG 10ML VIAL IV SCH (11:36)
[2018-09-07] MEDS: INSULIN LISPRO 100 UNIT/1 ML 3ML VIAL SQ SCH ×2 (12:00→17:54)
[2018-09-07 12:16] VITALS: BP 120/75
--- NOTE | 2018-09-07 12:43 | History and Physical ---
PRIMARY CARE PHYSICIAN: Dr. Pranay Calderón. ENGINE WIPER: Dr. Toño Rivera. CHIEF COMPLAINT: Nausea and vomiting, intractable with ileus and small bowel obstruction. HISTORY: A 63-year-old male with history of kidney transplant, multiple abdominal surgery. The patient has Charcot foot, foot ulcer, on chronic antibiotic suppression. He also is on medication for his renal transplant suppression as well, came in because of ileus. The patient has significant output with NG tube. He has remained on not by mouth at this time. The patient is otherwise stable. PAST MEDICAL HISTORY: Status post renal transplant on chronic immunosuppression. Systolic dysfunction, congestive heart failure. Dyslipidemia, chronic kidney disease, hypertension, diabetes type 2, on insulin therapy, atrial fibrillation on anticoagulant therapy, major depression, anxiety disorder, status post recurrent fall with previous rib fractures. Charcot foot. Diabetic foot ulcer on the right on ongoing treatment. Peripheral vascular disease. Recurrent fluid overload due to fluid management. PAST SURGICAL HISTORY: The patient had partial colectomy with colostomy. SOCIAL HISTORY: The patient lives at home with his spouse who care for the patient. ALLERGIES: NO KNOWN ALLERGIES. HOME MEDICATION: List is extensively reviewed. REVIEW OF SYSTEMS: Nausea and vomiting. PHYSICAL EXAMINATION: VITAL SIGNS: Temperature is 97, blood pressure 140/91, pulse rate is 104, respirations 18. GENERAL: The patient is not in any distress. HEENT: Normocephalic, atraumatic. NG tube in place. NECK: Supple. PULMONARY: Diminished breath sounds bilaterally. CARDIOVASCULAR: S1, S2. Irregularly irregular rate control. ABDOMEN: Colostomy with minimal output. EXTREMITIES: No cyanosis or edema. Charcot foot. Diabetic foot ulcer on the right. NEUROLOGIC: No focal deficit. The patient is moving all extremities. LABORATORY DATA: Chemistry; sodium is 136, potassium 4, chloride 86, bicarb 34, BUN is 73, creatinine 2.5, glucose is 115. WBC 7.8, hemoglobin 10.2, hematocrit 30.7, and platelet is 246. Gastric occult blood is still pending. IMAGING TEST: Abdominal and pelvis CT scan showed a superiorly distended stomach and mildly distended loops of small bowel, likely relating to small bowel obstruction versus ileus. He had a left lower quadrant colostomy. IMPRESSION: 1. Small bowel obstruction, most likely from multiple abdominal surgery in the past with adhesion. 2. Intractable nausea and vomiting. PLAN: IV fluid support since the patient is nothing by mouth at this time. Continue with supportive measure. PPI, Protonix. Antibiotics are Zyvox for chronic foot infection. Normal saline 75 mL an hour for now. Resume some of the patient's home medication. Instead of prednisolone, we gave the methylprednisolone for now for anti-rejection. Nothing by mouth. No NG tube feeding. We will place the patient on some beta-dion for the heart rate. We will schedule the Lopressor IV 5 mg q.8 hours. We will monitor the patient closely. We will put on holding parameters. MD JAYLA Holcomb/MARA /[id number]
[2018-09-07] MEDS: TACROLIMUS 1 MG CAP PO SCH ×2 (12:47→19:11)
[2018-09-07] MEDS: BRIMONIDINE/TIMOLOL (OPTH SOLN 5 ML DRPETTE OP SCH (13:04)
--- NOTE | 2018-09-07 14:25 | Diagnostic Imaging Report ---
Exam: KUB - 2 views Clinical History: Nasogastric tube placement. Comparison: CT abdomen/pelvis 09/07/2018 and KUB 09/06/2018. Findings: Nasogastric tube is not visualized. Mildly dilated small bowel loops persist. There is a paucity of air within the colon. IVC filter overlies the L2-L3 vertebral bodies. Atherosclerotic vascular calcifications. Impression: Nasogastric tube is not visualized. Persistent dilated small bowel loops. Signed by: Dr. Oni Chavez MD on 09/07/2018 2:21 PM
--- NOTE | 2018-09-07 15:20 | NUR ---
Wound consultation for bilateral foot ulcers. Pressure ulcer to L heel, 100% eschar 4.0cm x 6.5 cm. Dry and intact. Unable to palpate pulses, cap refill > 3 secs. Diabetic foot ulcer to R plantar foot 1.0cm x 0.6cm x 1.5cm. Patient has Charcot joint to R foot. Neither wounds show s/s of infection. Patient states he is under the care of Dr. Willam Barrera DPCarmina and is currently using hydrogel to the wounds. Patient has multiple areas of bruising to bilateral upper extremities. He is currently being for an ileus. No redness noted to sacrum. WBC 7.84 Alb 3.3 gluc 115. Plan of care reviewed with Dr. Herbert. Will consult Dr. Barrera and continue hydrogel to wounds for now. Turn q 2 hrs. Heel medix boots for offloading, and pressure ulcer prevention initiatives of turning q 2 hrs and continue with alternating pressure relief surface.
[2018-09-07 17:13] VITALS: BP 137/68
--- NOTE | 2018-09-07 18:15 | NUR ---
Debridement tray left at pt's bedside as per Dr. Barrera. Consent obtained for left heel debridement
--- NOTE | 2018-09-07 19:43 | NUR ---
Pt resting comfortably in bed. Handoff given to oncoming nurse.
[2018-09-07 20:00] VITALS: BP 148/67
--- NOTE | 2018-09-07 20:08 | Diagnostic Imaging Report ---
FOOT COMPLETE BILATERAL - 3 views each HISTORY: Pain. COMPARISON: Right foot radiographs 06/04/2018. FINDINGS: RIGHT: Persistent severe Charcot arthropathy of the foot with destruction of the midfoot articulations, bone fragmentation. Soft tissue ulceration on the right plantar mid foot soft tissues. LEFT: Probably chronic unhealed medial malleolar tip fracture fragment. Degenerative changes throughout the left foot and ankle, with sclerotic changes about the mid foot articulations. Truncated left second proximal phalanx, absent left second metatarsal head. Hallux valgus. Vascular calcifications. IMPRESSION: 1. Chronic severe Charcot arthropathy of the right foot, with ulceration in the right plantar mid foot soft tissues.. 2. Advanced degenerative changes in the left foot, with possibly early development of Charcot arthropathy. 3. Deformity of the left foot second ray, may be from prior surgery. If there is clinical suspicion of osteomyelitis, consider left forefoot MRI for further evaluation. Signed by: Wade Lujan MD on 09/07/2018 8:05 PM
--- NOTE | 2018-09-07 20:51 | Diagnostic Imaging Report ---
EXAM: Abdomen radiograph 1 view INDICATION: NG tube placement COMPARISON: Abdominal radiograph 09/07/2018 FINDINGS: Interval placement of an enteric tube which coils back and ascends superiorly back up into the thorax with tip out of field of view. Gaseous distention of multiple dilated loops of small bowel, dilated up to 3.5 cm. No renal calculi. No abnormal soft tissue masses. There are degenerative changes in the lumbar spine and pelvis. Vascular calcifications. IMPRESSION: 1. The enteric tube tip does not terminate in the gastric lumen, and coils back up in the esophagus, with tip out of field of view. Recommend repositioning. 2. Dilated loops of small bowel may be due to ileus or obstruction. Signed by: Wade Lujan MD on 09/07/2018 8:47 PM
--- NOTE | 2018-09-07 20:54 | NUR ---
BLOOD SUGAR 59, PATIENT IS ON NPO STATUS. MEDICATED WITH D50 ORDERED, PRIMARY NURSE MADE AWARE THAT THE PATIENT WAS MEDICATED WITH D50.
[2018-09-07] MEDS: BALSAM PERU/CASTOR OIL 60 GM OINT...G. TP SCH (20:59)
[2018-09-07] MEDS: LATANOPROST(OPTH) 2.5 ML BTL OP SCH (20:59)
[2018-09-07] MEDS ORDERED: COLLAGENASE 5 GM TUBE TOP SCH (21:00)
--- NOTE | 2018-09-07 22:00 | NUR ---
NGT tube removed due to coiling, new 14 FR placed to right nare, patient tolerated well
--- NOTE | 2018-09-07 22:28 | Diagnostic Imaging Report ---
Abdomen/KUB INDICATION: ^NGT placement ^[id number] ^2199 COMPARISON: Abdomen x-ray 2017 hours. FINDINGS: Portable, supine image obtained at 2214 hours. Medical Devices: Nasogastric tube terminates in the proximal stomach with the sidehole just past the GE junction. IVC filter is stable in position terminating at L3 Bowel: Dilated small bowel loops are redemonstrated. No pneumatosis Free air: None Calcifications: Diffuse vascular calcifications are redemonstrated. Organomegaly: None Lung bases: Clear. Bones: Stable IMPRESSION: NG tube terminates in the proximal stomach as described above. Stable dilated small bowel loops consistent with obstruction. Signed by: Dr. Randi Tejeda MD on 09/07/2018 10:24 PM
[2018-09-08] VITALS (8 sets, daily range): BP systolic 148–196; BP diastolic 67–94
--- NOTE | 2018-09-08 01:11 | Consultation ---
DATE OF CONSULTATION: 09/07/2018 HISTORY OF PRESENT ILLNESS: This is a 63-year-old, who has multiple medical problems and also surgical history, presented to the hospital because of problems with nausea and vomiting. His workup shows there is a possibility of ileus or small-bowel obstruction. An NG tube has been placed and it apparently helps his symptoms. PAST MEDICAL HISTORY: Significant for history of previous renal transplant, on chronic immunosuppressants; history of systolic congestive heart failure, dyslipidemia, chronic kidney disease, hypertension, diabetes, atrial defibrillation, depression, anxiety, status post recurrent fall with previous rib fractures, Charcot foot, diabetic foot ulcers. ALLERGIES: NONE. MEDICATIONS: Currently including Prograf, metoprolol, eye drop, linezolid, pantoprazole, lispro, Santyl, Xalatan. SOCIAL HISTORY: No alcohol use. FAMILY HISTORY: Noncontributory. REVIEW OF SYSTEMS: At this point, he denies any chest pain or shortness of breath. Denies any nausea or vomiting. Denies any dysphagia or odynophagia. Denies any dysuria, hematuria, or any kind of syncopal episode. PHYSICAL EXAMINATION: GENERAL: The patient is lying in bed, appears to be stable, not in acute distress at this point. VITAL SIGNS: Afebrile currently. HEAD, EYES, EARS, NOSE, AND THROAT: Normocephalic, atraumatic. Sclerae are anicteric. There is an NG tube in place. HEART: Regular. LUNGS: Clear. ABDOMEN: Soft. There is no distention at this point and is nontender. EXTREMITIES: No cyanosis. No clubbing. LAB VALUES: WBC 7.84, hemoglobin 10.2, hematocrit 30.7. BUN 72, creatinine 2.54. PT 16.2, INR 1.24. CAT scan was done earlier shows evidence of distended stomach with distended loops of small bowel, likely from the ileus. There is no transition point. IMPRESSION: 1. Small-bowel obstruction versus ileus. 2. Anemia. RECOMMENDATION: Continue NG tube to allow intermittent suctions. Follow labs and KUB. MD OPAL Mendiola/MARA /[id number] cc: MD Raul Pelletier MD
--- NOTE | 2018-09-08 01:47 | Consultation ---
DATE OF CONSULTATION: 09/07/2018 REASON FOR CONSULTATION: Nonhealing ulcerations to both lower extremities with the patient being an insulin-dependent diabetic. HISTORY OF PRESENT ILLNESS: This is a pleasant 63-year-old male was seen at bedside accompanied by spouse, was admitted secondary to nausea and vomiting. The patient is denying any history of fever or chills. PAST MEDICAL HISTORY: Remarkable for insulin-dependent diabetes, history of blood clot, Charcot foot with multiple ulcerations to both lower extremities, last seen in the office approximately a month ago. PAST SURGICAL HISTORY: Remarkable for kidney transplant, colostomy, and rotator cuff surgery. SOCIAL HISTORY: Denies any smoking, drinking, or recreational drug use. Lives at home with spouse. Stopped smoking 20+ years ago, was a two pack-a-day smoker. Has seven kids between him and his . FAMILY HISTORY: Remarkable for diabetes. CURRENT MEDICATIONS: Note listed in chart. REVIEW OF SYSTEMS: CARDIAC: Denies any history of palpitations or arrhythmias. RESPIRATORY: Denies any shortness of breath or productive cough. GASTROINTESTINAL: Does relate some abdominal pain. Genitourinary: Denies any hematuria or problems voiding. PHYSICAL EXAMINATION: VITAL SIGNS: Afebrile, pulse rate 86, respirations 16, blood pressure 137/58, O2 saturation 97%. VASCULATURE: Pedal pulses of both the DP and PT are palpable, but diminished. NEUROLOGICAL: Reveals loss of protective sensation when utilizing [place] 5% monofilament wire. MUSCULOSKELETAL: Reveals muscle mass to be asymmetrical. Some swelling noted to the right foot compared to the left. Muscle strength is 3/5 to all muscle groups. Has a Charcot foot deformity to the right lower extremity. DERMATOLOGICAL: Grade 3 ulcer down to muscle and plantar fascia, right foot measuring 1.5 to 2 cm in diameter with no foul smell. Has a grade 2 ulcer, left heel measuring more than 3 to 4 cm in diameter with some necrosis noted down the subcutaneous tissue. X-rays of both lower extremities reveal no osteomyelitic changes to the left foot. Severe calcification of vessels noted. No gas in the tissue noted to either foot. LABORATORY DATA: Show white blood cell count 7.8, hemoglobin 10.2, hematocrit 30.7 with a platelet count of 246. Has an INR of 1.2 with a blood glucose of 70. ASSESSMENT: Grade 3 ulcer, right foot. Grade 2 ulcer, left diabetic neuropathy with increased circulatory status bilaterally. PLAN: We will start Santyl collagenase followed by diluted wet-to-dry Betadine, but notable for ulceration. Continue offloading with cast and Prevalon boots. Ulcerations will be debrided tomorrow at bedside tissue left down the muscles of the right lower extremity. The patient's symptoms have responded very well with serial debridements of the right lower extremity, at what point he was very close to losing his leg. MELANIA Taylor/MARA /[id number]
[2018-09-08] MEDS: MORPHINE SULFATE INJ 4 MG/ML INJ 1ML IV PRN ×2 (03:03→15:20)
[2018-09-08] MEDS: ONDANSETRON HCL INJ 2MG/ML 2ML 2 MG/ML VIAL IV PRN ×2 (03:04→15:25)
[2018-09-08] MEDS: INSULIN LISPRO 100 UNIT/1 ML 3ML VIAL SQ SCH ×4 (06:00→18:00)
[2018-09-08 06:22] LABS: INR 1.3; PROTHROMBIN TIME 16.8 seconds (11.9-14.5)
[2018-09-08] MEDS: METHYLPREDNISOLONE SOD SUCC 40 MG/ML VIAL 1ML IV SCH (06:22)
[2018-09-08] MEDS: METOPROLOL TARTRATE INJ 1 MG/ML VIAL IV SCH ×3 (06:22→22:00)
[2018-09-08 06:30] LABS: BASOPHILS % 0.3 % (0.0-1.0); EOSINOPHILS # (AUTO) 0.1 (0.0-0.4); EOSINOPHILS % 1.5 % (0.0-6.0); HEMATOCRIT 27.8 % (38.2-49.6); LYMPHOCYTES # (AUTO) 1.7 (1.0-3.2); LYMPHOCYTES % 23.3 % (18.0-39.1); MEAN CORPUSCULAR HEMOGLOBIN 31.4 pg (28-32); MEAN CORPUSCULAR HGB CONC 32.4 g/dL (31-35); MEAN CORPUSCULAR VOLUME 96.9 fL (81-99); MONOCYTES # (AUTO) 0.6 (0.2-0.8); MONOCYTES % 8.5 % (4.4-11.3); NEUTROPHILS # (AUTO) 4.8 (2.1-6.9); NEUTROPHILS % 64.7 % (38.7-80.0); PLATELET COUNT 224 x10e3/uL (140-360); RED BLOOD COUNT 2.87 x10e6/uL (4.3-5.7)
[2018-09-08 06:32] LABS: ANION GAP 15.1 mmol/L (8-16); CALCIUM 9.3 mg/dL (8.4-10.2); CREATININE, SERUM 2.79 mg/dL (0.72-1.25); MAGNESIUM 1.8 MG/DL (1.3-2.1); PHOSPHORUS 4.3 MG/DL (2.3-4.7); POTASSIUM 4.1 mmol/L (3.5-5.1)
[2018-09-08 06:58] LABS: THYROID STIMULATING HORMONE 1.801 uIU/mL (0.350-4.940)
--- NOTE | 2018-09-08 07:30 | NUR ---
WENT INTO PATIENT'S ROOM, PATIENT AND FAMILY ARE SLEEPING, PATIENT SHOWS NO SIGNS OF DISTRESS.
--- NOTE | 2018-09-08 07:58 | NUR ---
CALLED DR. BLACKWELL'S OFFICE TO CLARIFY ORDER FOR KUB, PATIENT HAS ORDER FOR KUB THIS MORNING, KUB WAS LAST PERFORMED AT 2153, 09/07/2018.
--- NOTE | 2018-09-08 08:57 | Progress Note ---
DATE: 09/08/2018 SUBJECTIVE: The patient seen at bedside, accompanied by his spouse, doing well. Denies any history of fever, chills, nausea, or vomiting. OBJECTIVE: VITALS: Afebrile, pulse rate 87, respirations 19, blood pressure 193/84, and O2 saturation 99%. EXTREMITIES: Ulcerations to both lower extremities, stable. Has a grade 3 ulcer to the plantar aspect right foot with Charcot deformity. Has a grade 2 ulcer to left heel down to subcutaneous tissue. The right and left ulcers are approximately 1.5 cm in diameter and more than 4-5 cm in diameter right and left foot respectively. Periwound cellulitis present with negative foul smell. Pedal pulses diminished to both feet. LABORATORY DATA: Labs noted, has an INR of 1.3. White blood cell count of 7.4, hemoglobin 9.0 with a platelet count of 224, hematocrit of 27.8. ASSESSMENT: Grade 2 ulcer, left and grade 3 ulcer, right down to subcu and plantar fascia and tendon right and left foot respectively with diabetic neuropathy. PLAN: The patient is properly consented for surgical bedside debridement of both foot ulcerations under no anesthesia secondary to his neuropathy. Ulcerations were carried down to muscle to the right lower extremity and down to subcutaneous tissue to left, devitalized tissue sharply excised with a sterile 10 blade until good viable bleeding tissue was achieved. Sterile dressing was applied with Santyl followed by dilute wet-to-dry Betadine. We will continue offloading, continue local wound care. We will continue to follow. The patient seems to be responding to conservative treatment. MELANIA Taylor/MARA /[id number]
--- NOTE | 2018-09-08 09:59 | Diagnostic Imaging Report ---
Exam: KUB - 2 views Clinical History: Abdominal pain, follow-up of ileus versus obstruction Comparison: Multiple prior abdominal radiographs, most recently of 09/07/2018 Findings: No significant interval change in persistently dilated loops of small bowel measuring up to 3.5 cm. The NG tube is not seen on this study, possibly superior to the field of view. IVC filter in unchanged position. Extensive atherosclerotic vascular calcifications. Impression: No significant interval change in dilated loops of small bowel consistent with obstruction. Signed by: Richar Cruz MD on 09/08/2018 9:55 AM
[2018-09-08] MEDS: COLLAGENASE OINTMENT 30 GM TUBE TP SCH (11:29)
[2018-09-08] MEDS: TACROLIMUS 1 MG CAP PO SCH ×2 (11:35→18:10)
[2018-09-08] MEDS: LINEZOLID 600 MG/D5W 300ML 300 ML IV SCH ×2 (11:35→21:00)
[2018-09-08] MEDS: BRIMONIDINE/TIMOLOL (OPTH SOLN 5 ML DRPETTE OP SCH (11:35)
[2018-09-08] MEDS: BALSAM PERU/CASTOR OIL 60 GM OINT...G. TP SCH ×2 (11:35→21:00)
[2018-09-08] MEDS: PANTOPRAZOLE 40 MG 10ML VIAL IV SCH (11:35)
--- NOTE | 2018-09-08 11:53 | Consultation ---
DATE OF CONSULTATION: 09/08/2018 ADDITIONAL REFERRING PHYSICIAN: Dr. Calderón. HISTORY OF PRESENT ILLNESS: The patient is a 63-year-old male with multiple medical problems, who was admitted to the hospital with complaints of abdominal pain with nausea and vomiting and no output from his colostomy. The patient says symptoms started about three days ago. The pain was very severe, but now is better. He had required a nasogastric tube because he had a very dilated stomach, but he has had no output from the colostomy for three days. Evaluation of CT of the abdomen and pelvis revealed findings suggestive of small bowel obstruction. The patient has had previous abdominal surgery, previous partial colon resection with colostomy, also previous kidney transplant. PAST MEDICAL HISTORY: Also significant for renal failure, congestive heart failure, hyperlipidemia, hypertension, type 2 diabetes, atrial fibrillation, depression, chronic ulcer on his right foot, peripheral vascular disease. ALLERGIES: HE HAS NO KNOWN ALLERGIES. MEDICATIONS: Listed in the chart. FAMILY HISTORY: Noncontributory. SOCIAL HISTORY: The patient does not smoke cigarettes or drink alcohol. He is . REVIEW OF SYSTEMS: As stated above. He has not had any fever. PHYSICAL EXAMINATION: GENERAL: The patient is awake and alert. VITAL SIGNS: At this time are normal. He is not tachycardic. HEENT: There is no scleral icterus. NECK: Has no masses. LUNGS: Equal breath sounds are clear bilaterally. CARDIAC: Irregular rhythm. ABDOMEN: Soft. There is no distention. There is a healed midline wound with a colostomy in the left side of the abdomen with some stool in the bag, but no air. EXTREMITIES: No edema. There is an ulcer on the right heel. NEUROLOGIC: Grossly intact. LAB TESTS: White blood cell count is normal, hemoglobin 9, hematocrit 28. Chemistries, elevated BUN and creatinine consistent with chronic kidney disease. Bicarbonate level is normal. ASSESSMENT: A 63-year-old male with multiple medical problems with small bowel obstruction with no signs of ischemic bowel at this time, there is no peritonitis and no distention at this time. At this point, recommend continue the patient with NG tube and plan to repeat the abdominal x-ray. Hopefully, this will resolve without requiring surgical intervention. Thank you for asking me to see Mr. Rios. MD VIRGILIO Cornejo/MARA /[id number]
[2018-09-08 14:42] LABS: FOLATE 15.3 ng/mL (7.0-15.4)
--- NOTE | 2018-09-08 14:55 | NUR ---
Visit made by the Spiritual Care Department Pastoral Visitor, Sakina Davenport. Pt sleeping soundly and no family present. Pastoral Visitor left a card describing availability of conservation enforcement officer and instructions on how to contact a conservation enforcement officer. DIPAK RODRIGUEZ Director Home Spiritual Care Department O: [phone] Pager: [phone] ([phone] number calling from)
[2018-09-08] MEDS: SODIUM CHLORIDE 0.9% 1000ML 1,000 ML IV SCH (18:10)
--- NOTE | 2018-09-08 20:00 | NUR ---
INITIAL ASSESSMENT COMPLETE, CALL LIGHT IN REACH, FAMILY AT BEDSIDE, NGT TO LIWS IN PLACE, DRAINING GREEN BILE, PT HAS COLOSTOMY TO LEFT SIDE OF ABD, LEFT UPPER ARM FISTULA, HEEL PROTECTORS ON FEET, CUSHION TO COCCYX FOR PREVENTION, ENCOURAGED TO TURN OFF BACK, TELE ON PT, PT IS NPO, BS Q6HRS, NO DISTRESS NOTED, VS STABLE
[2018-09-08] MEDS: LATANOPROST(OPTH) 2.5 ML BTL OP SCH (21:00)
[2018-09-09] VITALS (9 sets, daily range): BP systolic 134–199; BP diastolic 60–85
[2018-09-09] MEDS: SODIUM CHLORIDE 0.9% 1000ML 1,000 ML IV SCH ×2 (00:30→14:02)
[2018-09-09] MEDS: MORPHINE SULFATE INJ 4 MG/ML INJ 1ML IV PRN (03:05)
[2018-09-09] MEDS: INSULIN LISPRO 100 UNIT/1 ML 3ML VIAL SQ SCH ×4 (06:00→18:36)
[2018-09-09] MEDS: METOPROLOL TARTRATE INJ 1 MG/ML VIAL IV SCH ×3 (06:00→21:25)
[2018-09-09] MEDS: METHYLPREDNISOLONE SOD SUCC 40 MG/ML VIAL 1ML IV SCH (06:00)
[2018-09-09 06:14] LABS: BASOPHILS % 0.2 % (0.0-1.0); HEMATOCRIT 24.9 % (38.2-49.6); LYMPHOCYTES # (AUTO) 1.1 (1.0-3.2); LYMPHOCYTES % 17.5 % (18.0-39.1); MEAN CORPUSCULAR HEMOGLOBIN 31.4 pg (28-32); MEAN CORPUSCULAR HGB CONC 32.1 g/dL (31-35); MEAN CORPUSCULAR VOLUME 97.6 fL (81-99); MONOCYTES # (AUTO) 0.5 (0.2-0.8); NEUTROPHILS # (AUTO) 4.7 (2.1-6.9); NEUTROPHILS % 72.6 % (38.7-80.0); PLATELET COUNT 200 x10e3/uL (140-360); RED BLOOD COUNT 2.55 x10e6/uL (4.3-5.7); RED CELL DISTRIBUTION WIDTH 15.6 % (11.7-14.4)
[2018-09-09 06:31] LABS: ANION GAP 20.7 mmol/L (8-16); CALCIUM 8.8 mg/dL (8.4-10.2); CREATININE, SERUM 3.18 mg/dL (0.72-1.25); POTASSIUM 4.7 mmol/L (3.5-5.1)
--- NOTE | 2018-09-09 07:10 | NUR ---
received pt lying in bed with eyes closed, Resp even and unlabored. call light within reach. at bedside.
[2018-09-09 07:46] LABS: LYMPHOCYTES % (MANUAL) 15 % (19-48); MONOCYTES % (MANUAL) 4 % (3.4-9.0); MYELOCYTES % (MANUAL) 2 % (0-0); NEUTROPHILS % (MANUAL) 79 % (40-74)
[2018-09-09 07:47] LABS: PLATELET ESTIMATE ADEQUATE; PLATELET MORPHOLOGY COMMENT NORMAL; RBC MORPHOLOGY COMMENT NORMAL
[2018-09-09] MEDS: PANTOPRAZOLE 40 MG 10ML VIAL IV SCH (09:01)
[2018-09-09] MEDS: TACROLIMUS 1 MG CAP PO SCH ×2 (09:02→17:06)
[2018-09-09] MEDS: BRIMONIDINE/TIMOLOL (OPTH SOLN 5 ML DRPETTE OP SCH (09:02)
[2018-09-09] MEDS: LINEZOLID 600 MG/D5W 300ML 300 ML IV SCH ×2 (09:02→21:30)
[2018-09-09] MEDS: COLLAGENASE OINTMENT 30 GM TUBE TP SCH (09:02)
[2018-09-09] MEDS: BALSAM PERU/CASTOR OIL 60 GM OINT...G. TP SCH ×2 (09:02→21:36)
--- NOTE | 2018-09-09 09:47 | Diagnostic Imaging Report ---
PROCEDURE:ABDOMEN 2 VIEW COMPARISON:09/08/2018. INDICATIONS:SMALL BOWEL OBSTRUCTION FINDINGS:Enteric tube is noted. The tip projects over the expected region of the proximal gastric body. When accounting for differences in technique, no significant interval change in multiple dilated loops of small bowel to a maximum caliber of 3.5 cm and the left upper quadrant. No david pneumoperitoneum. Extensive atherosclerotic vascular calcifications. Cook Celect IVC filter projects to the right of the vertebral column at the level of L2-L3. Regional skeletal structures are intact with degenerative disc changes and facet arthropathy of the lumbar spine. Calcification projecting over the right upper quadrant of the abdomen may reflect a granuloma in the right lung base. CONCLUSION: Enteric tube in position as described, without significant interval change in degree of small bowel dilatation relative to 09/08/2018. Dictated by: Amrit Mcintosh M.D. on 09/09/2018 at 9:50 Electronically approved by: Amrit Mcintosh M.D. on 09/09/2018 at 9:50
--- NOTE | 2018-09-09 13:43 | Progress Note ---
DATE: 09/09/2018 SUBJECTIVE: The patient seen at bedside, accompanied by his spouse, on the way to get a chest x-ray. Having decreased discomfort to both lower extremities. Denying any history of fever, chills, nausea, or vomiting. OBJECTIVE: VITALS: Afebrile, pulse rate 77, respirations 18, blood pressure 183/79, and O2 saturation 99%. EXTREMITIES: Dressings dry and intact, no bloody strike through noted to both lower extremities. Spouse says his ulcerations are getting better. ASSESSMENT: Grade 2 ulcer, left; grade 3 ulcer, right; Charcot deformity, right foot; diabetic neuropathy. PLAN: We will continue local wound care, continue offloading, continue Santyl collagenase followed by diluted wet-to-dry Betadine. We will continue to follow and monitor. MELANIA Taylor/MARA /[id number]
--- NOTE | 2018-09-09 15:52 | NUR ---
EDUCATED ABOUT IMM, SIGNED, FILED IN CHART, WITH COPY LEFT WITH FAMILY AT BEDSIDE.
[2018-09-09] MEDS: LATANOPROST(OPTH) 2.5 ML BTL OP SCH (21:35)
[2018-09-10] VITALS (8 sets, daily range): BP systolic 123–185; BP diastolic 64–85
[2018-09-10] MEDS: ONDANSETRON HCL INJ 2MG/ML 2ML 2 MG/ML VIAL IV PRN ×3 (00:22→21:27)
[2018-09-10] MEDS: MORPHINE SULFATE INJ 4 MG/ML INJ 1ML IV PRN ×3 (00:24→21:31)
[2018-09-10] MEDS: INSULIN LISPRO 100 UNIT/1 ML 3ML VIAL SQ SCH ×4 (00:25→17:46)
[2018-09-10] MEDS: SODIUM CHLORIDE 0.9% 1000ML 1,000 ML IV SCH ×3 (03:10→16:16)
[2018-09-10] MEDS: METOPROLOL TARTRATE INJ 1 MG/ML VIAL IV SCH (05:39)
[2018-09-10] MEDS: METHYLPREDNISOLONE SOD SUCC 40 MG/ML VIAL 1ML IV SCH (05:46)
--- NOTE | 2018-09-10 07:05 | NUR ---
received pt lying in bed with eyes closed, Resp even and unlabored. bed in low and locked position. call light within reach. NGT to LIWS. at bedside.
--- NOTE | 2018-09-10 07:06 | NUR ---
Report given to oncoming nurse,walking rounds made.pt resting in bed with no s/s of distress.
[2018-09-10 07:47] LABS: BASOPHILS % 0.2 % (0.0-1.0); EOSINOPHILS % 0.2 % (0.0-6.0); HEMATOCRIT 25.9 % (38.2-49.6); HEMOGLOBIN 8.4 g/dL (14.0-18.0); LYMPHOCYTES # (AUTO) 0.7 (1.0-3.2); MEAN CORPUSCULAR HEMOGLOBIN 30.9 pg (28-32); MEAN CORPUSCULAR HGB CONC 32.4 g/dL (31-35); MEAN CORPUSCULAR VOLUME 95.2 fL (81-99); MONOCYTES # (AUTO) 0.3 (0.2-0.8); MONOCYTES % 4.1 % (4.4-11.3); NEUTROPHILS # (AUTO) 5.3 (2.1-6.9); NEUTROPHILS % 83.2 % (38.7-80.0); PLATELET COUNT 210 x10e3/uL (140-360); RED BLOOD COUNT 2.72 x10e6/uL (4.3-5.7); RED CELL DISTRIBUTION WIDTH 15.3 % (11.7-14.4)
[2018-09-10 08:11] LABS: ANION GAP 15.2 mmol/L (8-16); CALCIUM 8.4 mg/dL (8.4-10.2); CREATININE, SERUM 3.23 mg/dL (0.72-1.25); POTASSIUM 4.2 mmol/L (3.5-5.1)
[2018-09-10] MEDS: COLLAGENASE OINTMENT 30 GM TUBE TP SCH (09:27)
[2018-09-10] MEDS: LINEZOLID 600 MG/D5W 300ML 300 ML IV SCH ×2 (09:27→20:15)
[2018-09-10] MEDS: BRIMONIDINE/TIMOLOL (OPTH SOLN 5 ML DRPETTE OP SCH (09:27)
[2018-09-10] MEDS: TACROLIMUS 1 MG CAP PO SCH ×2 (09:27→17:11)
[2018-09-10] MEDS: PANTOPRAZOLE 40 MG 10ML VIAL IV SCH (09:27)
[2018-09-10] MEDS: BALSAM PERU/CASTOR OIL 60 GM OINT...G. TP SCH ×2 (09:27→20:14)
[2018-09-10] MEDS ORDERED: CLONIDINE HCL 0.2 MG/24 HR 1 EA PATCH TOP SCH (11:00)
--- NOTE | 2018-09-10 11:32 | Diagnostic Imaging Report ---
EXAM: Abdomen 2 radiographs INDICATION: ^small bowel obstruction ^[id number] ^1030 COMPARISON: Abdominal x-ray dated 09/09/2018 FINDINGS: Persistent gaseous distention of small bowel loops. No signs of pneumoperitoneum. Unchanged IVC filter in place. Severe vascular calcifications. No acute osseous abnormality. Degenerative changes of the spine. NG/OG tube in place with tip overlying gastric fundus. IMPRESSION: Unchanged obstructive bowel gas pattern. Signed by: Dr. Chas Hardy MD on 09/10/2018 11:29 AM
--- NOTE | 2018-09-10 15:04 | Progress Note ---
DATE: 09/10/2018 SUBJECTIVE: The patient seen at bedside, accompanied by daughter and son-in-law, in no distress. Denies any history of fever or chills. OBJECTIVE: VITALS: Afebrile, pulse rate 58, respirations 20, blood pressure 185/77, and O2 saturation 100%. EXTREMITIES: Ulcerations to both lower extremities improving. The ulcer to the plantar aspect of right foot is less than 1.5 x 2.5 cm in diameter, no tendon or ligament or plantar fascia exposed, healing from the inside out after the last debridement. Ulceration to the left heel was more than 4-5 cm in diameter with necrosis noted down to subcutaneous tissue, some granulation tissue noted, negative foul smell. Pedal pulses were palpable, but diminished. Has a Charcot foot deformity to the right foot. LABORATORY DATA: Labs noted, has a blood white blood cell count of 6.3, hemoglobin 8.4, hematocrit 25.9 with a platelet count of 210. ASSESSMENT: Diabetic neuropathy; Charcot foot, right; grade 2 ulcer to both lower extremities. PLAN: We will continue local wound care. Dressings were changed. Santyl collagenase was applied followed by diluted wet-to-dry Betadine. Continue offloading. We will continue to follow. Further debridement of the ulcers may need to be carried out depending on how he continues to respond to conservative care. MELANIA Taylor/MARA /[id number]
--- NOTE | 2018-09-10 19:12 | NUR ---
report given to oncoming nurse, bedside rounds done.
[2018-09-10] MEDS: HYDRALAZINE HCL 20 MG/ML VIAL IV PRN (20:13)
[2018-09-10] MEDS: LATANOPROST(OPTH) 2.5 ML BTL OP SCH (20:14)
[2018-09-11] VITALS (9 sets, daily range): BP systolic 159–188; BP diastolic 59–95
[2018-09-11] MEDS: INSULIN LISPRO 100 UNIT/1 ML 3ML VIAL SQ SCH ×5 (00:28→23:49)
[2018-09-11] MEDS: ONDANSETRON HCL INJ 2MG/ML 2ML 2 MG/ML VIAL IV PRN ×4 (02:14→23:45)
[2018-09-11] MEDS: MORPHINE SULFATE INJ 4 MG/ML INJ 1ML IV PRN ×4 (02:16→23:45)
[2018-09-11] MEDS: SODIUM CHLORIDE 0.9% 1000ML 1,000 ML IV SCH (05:53)
[2018-09-11] MEDS: METHYLPREDNISOLONE SOD SUCC 40 MG/ML VIAL 1ML IV SCH (06:09)
--- NOTE | 2018-09-11 06:58 | NUR ---
REPORT GIVEN TO ONCOMING NURSE,WALKING ROUNDS DONE.PT RESTING IN BED WITH NO S/S OF DISTRESS.
--- NOTE | 2018-09-11 07:00 | NUR ---
received am report from RN, morning rounds completed. pt is resting comfortably in bed. pt was reported to be legally blind in report, pt is responsive to voice. no s/s of distress noted from pt. is at the bedside.
[2018-09-11] MEDS: PANTOPRAZOLE 40 MG 10ML VIAL IV SCH (08:20)
[2018-09-11] MEDS: TACROLIMUS 1 MG CAP PO SCH ×2 (08:20→18:26)
[2018-09-11] MEDS: BRIMONIDINE/TIMOLOL (OPTH SOLN 5 ML DRPETTE OP SCH (08:20)
[2018-09-11] MEDS: LINEZOLID 600 MG/D5W 300ML 300 ML IV SCH ×2 (08:20→20:17)
[2018-09-11] MEDS: BALSAM PERU/CASTOR OIL 60 GM OINT...G. TP SCH ×2 (09:00→20:17)
[2018-09-11] MEDS: COLLAGENASE OINTMENT 30 GM TUBE TP SCH (09:00)
--- NOTE | 2018-09-11 13:18 | NUR ---
EDUCATED ABOUT IMM, SIGNED, FILED IN CHART, WITH COPY LEFT WITH FAMILY AT BEDSIDE.
--- NOTE | 2018-09-11 13:37 | Progress Note ---
DATE: 09/11/2018 SUBJECTIVE: The patient is seen at bedside, alert. The patient is going to have surgical intervention for his intestinal blockage later on today. Denies any history of fever, chills, nausea, or vomiting. OBJECTIVE: VITAL SIGNS: Afebrile. Pulse rate 75, respirations 16, blood pressure 158/70, O2 saturation 93%. LABORATORY DATA: Labs noted. White blood cell count of 6.3. Ulcerations to both lower extremity improving, has a Prevalon boot to the left lower extremity. There is negative foul smell. Ulcer to the left heel is down the subcutaneous tissue more than 4 cm in diameter. Ulceration mid plantar aspect of the right foot is less than 1.5 to 2 cm in diameter with no tendon or bone exposed. ASSESSMENT: Charcot foot right foot, diabetic neuropathy, grade 2 ulcers bilaterally. PLAN: Continue local wound care. Continue offloading with Prevalon boots. Continue to monitor foot. MELANIA Taylor/MARA /[id number]
--- NOTE | 2018-09-11 16:46 | NUR ---
Nutrition Intervention Note RD Recommendation(s) for Physician: -If unable to initiate PO intake within 24hr, rec PN (30% dextrose, 15% AA) with daily lipid 25g, providing 1035kcal, 150g dextrose, 75g protein -Blood glucose management per MD -Check CMP, Phos, Mag daily; Prealbumin, LFT and TG levels weekly -Continue with TPN per MD until diet is advanced and intake is >50%. -Advance diet as tolerated to GI Soft/ ADA diet Plan of Care: RD following, monitoring for tolerance and adequacy, PN rec Nutrition reason for involvement: NPO x [address] Assessment 09/11 63yo M, who was admitted for ileus. NPO x 4 days. Visited pt in the room. Pt still has NGT connected to LIS suction with 300mL dark drainage. Ex-lap w/ possible colon resection is scheduled for this afternoon. 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 Pt denies any abdominal pain at this time. Abdomen X-ray showed persistent gaseous distention of small bowel loops. Pt reports body weight at 145lbs, which doesnt appear to be true upon physical assessment. Pt requests for diet education to help maintain/ increase his body weight. RD will return for education when is present. Will continue to monitor and follow. Recommendation for PN is placed in chart. 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 Will re-evaluate at follow-up as appropriate. Energy intake: <50% of estimated energy requirements for >5 days Weight loss: unknown Fat loss: None Muscle loss: None Supporting Evidence: Fluid accumulation: None Functional Status: no changes Nutrition Prescription (Diet Order): NPO Estimated Nutritional Needs: Calories: 2002 2275kcal(22-25kcal/kg/d) Weight used: CBW Protein: 73 110g (0.8-1.2g/kg/d) Weight used: CBW Diet Adequacy: Not meeting calorie needs, Not meeting protein needs Diet Education Needs Assessment: Diet education indicated Will return for diet education when is on bedside . Nutrition Care Level: mod Nutrition Diagnosis: Altered GI function related to ileus as evidenced by pt requiring PN as main source of nutrition. Goal: Patient will meet 75-100% of estimated needs by follow up Progress: N/A Interventions: Composition, Rate, Route, IVF Monitoring/Evaluation: Total energy intake, Total protein intake, Formula/Solution, IVF, Weight change, Labs Signed: Suyapa Rose MS, RD, LD
--- NOTE | 2018-09-11 19:00 | NUR ---
received report from day nurse. patient is resting comfortably in bed. bed is in lowest position and call cobos is within reach. will continue to monitor patient.
[2018-09-11] MEDS: HYDRALAZINE HCL 20 MG/ML VIAL IV PRN ×2 (19:35→23:45)
[2018-09-11] MEDS: LATANOPROST(OPTH) 2.5 ML BTL OP SCH (20:17)
[2018-09-12 04:26] VITALS: BP 137/53
[2018-09-12] MEDS: ONDANSETRON HCL INJ 2MG/ML 2ML 2 MG/ML VIAL IV PRN ×2 (04:27→16:19)
[2018-09-12] MEDS: MORPHINE SULFATE INJ 4 MG/ML INJ 1ML IV PRN ×2 (04:27→16:19)
[2018-09-12] MEDS: METHYLPREDNISOLONE SOD SUCC 40 MG/ML VIAL 1ML IV SCH (05:06)
[2018-09-12] MEDS: SODIUM CHLORIDE 0.9% 1000ML 1,000 ML IV SCH (05:07)
[2018-09-12] MEDS: INSULIN LISPRO 100 UNIT/1 ML 3ML VIAL SQ SCH ×4 (05:07→21:50)
--- NOTE | 2018-09-12 06:50 | NUR ---
report given to day nurse. patient is resting comfortably in bed. bed is in lowest position and call cobos is within reach.
--- NOTE | 2018-09-12 07:00 | NUR ---
received am report from RN. morning rounds done. pt is sleeping comfortably, no s/s of distress. is at the bedside.
[2018-09-12 07:48] VITALS: BP 184/78
[2018-09-12] MEDS: PANTOPRAZOLE 40 MG 10ML VIAL IV SCH (09:00)
[2018-09-12] MEDS: TACROLIMUS 1 MG CAP PO SCH ×2 (09:00→16:25)
[2018-09-12] MEDS: BALSAM PERU/CASTOR OIL 60 GM OINT...G. TP SCH ×2 (09:00→21:57)
[2018-09-12] MEDS: BRIMONIDINE/TIMOLOL (OPTH SOLN 5 ML DRPETTE OP SCH (09:00)
[2018-09-12] MEDS: LINEZOLID 600 MG/D5W 300ML 300 ML IV SCH (09:00)
[2018-09-12] MEDS: HYDRALAZINE HCL 20 MG/ML VIAL IV PRN (09:00)
[2018-09-12] MEDS: COLLAGENASE OINTMENT 30 GM TUBE TP SCH (09:00)
[2018-09-12] MEDS ORDERED: DIPHENHYDRAMINE HCL 25 MG CAP PO PRN (10:45)
[2018-09-12] MEDS ORDERED: OXYCODONE/ACETAMINOPHEN 5-325 1 EACH TABLET PO PRN (10:45)
[2018-09-12] MEDS: LINEZOLID 600 MG TAB PO SCH ×2 (10:45→21:57)
[2018-09-12] MEDS: METOPROLOL TARTRATE 50 MG TAB PO SCH ×2 (11:55→15:43)
[2018-09-12 13:33] VITALS: BP 137/69
--- NOTE | 2018-09-12 15:01 | NUR ---
several attempts with pt today but pt c/o he is too tired today and unable to encouragement pt to participate Addendum: 09/12/18 at 1501 by Raul Adams PTA Amended: Links added.
[2018-09-12 15:43] VITALS: BP 122/69
[2018-09-12] MEDS: HYDRALAZINE HCL 100 MG TABLET PO SCH ×2 (16:19→21:50)
--- NOTE | 2018-09-12 19:24 | Progress Note ---
DATE: 09/12/2018 SUBJECTIVE: The patient seen at bedside, doing well. Denies any history of fever, chills, nausea, or vomiting. In good spirits. OBJECTIVE: VITALS: Afebrile, pulse rate 61, respirations 14, blood pressure 122/69, and O2 saturation 96%. EXTREMITIES: Ulcerations to both lower extremities continue to improve. More than 4 cm diameter posterior aspect of left heel. Some granulation tissue noted, minimal foul smell, no bone or tendon exposed. A grade 2 ulcer now to mid arch region of the right lower extremity with Charcot foot deformity, less than 2 cm in diameter. No tendon or plantar fascia exposed. Negative foul smell with periwound cellulitis. Pedal pulses are palpable. LABORATORY DATA: Labs show white blood cell count of 6.3. ASSESSMENT: Charcot foot of right foot with a grade 2 ulcer, grade 2 ulcer of left heel with periwound cellulitis. PLAN: We will continue to treat conservatively with offloading Prevalon boot to the left heel. Continue Santyl followed by diluted wet-to-dry Betadine to both ulcerations. MELANIA Taylor/MARA /[id number]
[2018-09-12 20:00] VITALS: BP 140/70
[2018-09-12] MEDS: LATANOPROST(OPTH) 2.5 ML BTL OP SCH (21:50)
[2018-09-12] MEDS: TRAMADOL HCL 50 MG TAB PO SCH (23:32)
[2018-09-13] VITALS: BP 176/70
[2018-09-13 04:00] VITALS: BP 188/75
[2018-09-13] MEDS: TRAMADOL HCL 50 MG TAB PO SCH ×3 (05:01→16:27)
--- NOTE | 2018-09-13 06:57 | NUR ---
report given to day nurse. patient is resting comfortably in bed. bed is in lowest position and call cobos is within reach.
[2018-09-13 08:00] VITALS: BP 166/65
[2018-09-13 08:01] VITALS: BP 166/65
[2018-09-13] MEDS: HYDRALAZINE HCL 100 MG TABLET PO SCH ×2 (08:17→16:25)
[2018-09-13] MEDS: PANTOPRAZOLE 40 MG 10ML VIAL IV SCH (08:17)
[2018-09-13] MEDS: BRIMONIDINE/TIMOLOL (OPTH SOLN 5 ML DRPETTE OP SCH (08:17)
[2018-09-13] MEDS: BALSAM PERU/CASTOR OIL 60 GM OINT...G. TP SCH (08:18)
[2018-09-13] MEDS: COLLAGENASE OINTMENT 30 GM TUBE TP SCH (08:18)
[2018-09-13] MEDS: LINEZOLID 600 MG TAB PO SCH (08:18)
[2018-09-13] MEDS: METOPROLOL TARTRATE 50 MG TAB PO SCH ×2 (08:18→16:27)
[2018-09-13] MEDS: TACROLIMUS 1 MG CAP PO SCH ×2 (08:18→16:27)
[2018-09-13] MEDS: INSULIN LISPRO 100 UNIT/1 ML 3ML VIAL SQ SCH ×3 (08:27→16:26)
[2018-09-13] MEDS ORDERED: PREDNISONE 5 MG TAB PO SCH (09:00)
[2018-09-13] MEDS ORDERED: MAGNESIUM OXIDE 400 MG TAB PO SCH (09:00)
[2018-09-13] MEDS ORDERED: WARFARIN SOD 1 MG TAB PO SCH (09:00)
[2018-09-13 09:13] LABS: INR 1.24; PROTHROMBIN TIME 16.2 seconds (11.9-14.5)
--- NOTE | 2018-09-13 10:05 | Discharge Summary ---
PRIMARY CARE PHYSICIAN: Dr. Pranay Calderón. DRESS OPERATOR: 1. Dr. Amrit Salinas. 2. Dr. Toño Rivera. 3. Dr. Dean Barrera. FINAL DIAGNOSIS: Resolved small bowel obstruction without surgical intervention. SUMMARY: A 63-year-old male with extensive chronic medical problem with abdominal surgery previously, colostomy, came in with small bowel obstruction and ileus. The patient has NG tube placement. He responded well. No surgical intervention needed. The patient tolerated his diet this morning and he will have lunch. The patient will be discharged home after lunch if he is doing well. He will continue with his home medication. I will add on Reglan and Zofran. The patient is stable, discharged home once tolerated diet. MD JAYLA Holcomb/MODL /[id number]
[2018-09-13 13:44] VITALS: BP 146/64
[2018-09-13] MEDS: METOCLOPRAMIDE HCL 10 MG TAB PO SCH ×2 (13:45→16:26)
[2018-09-13 16:17] VITALS: BP 156/65
[2018-09-13] MEDS: ONDANSETRON HCL INJ 2MG/ML 2ML 2 MG/ML VIAL IV PRN (16:58)
--- NOTE | 2018-09-13 18:30 | NUR ---
Pt discharged home at this time. Pt aox3 and able to verbalize needs. Denies any pain at this time. Pt and family verbalize understanding of discharge instructions a dn follow up appt.
--- NOTE | 2018-09-13 18:56 | Progress Note ---
DATE: 09/13/2018 SUBJECTIVE: The patient seen at bedside accompanied by family members, spouse. Spouse relates that the dressing was changed and both lower extremities are looking better. The patient denying history of fever, chills, nausea, vomiting. OBJECTIVE: VITALS: Afebrile, pulse rate 86, respirations 20, blood pressure 146/64, O2 saturation 100%. EXTREMITIES: Dressing dry and intact. Skin temperature warm to touch. CFT to all toes less than 2 seconds. ASSESSMENT: Grade 2 ulcers bilaterally with Charcot foot, healing nicely. PLAN: We will continue local wound care at home. Spouse and the patient instructed they need to follow up in the office within the next 2-3 weeks. Continue offloading with Prevalon boot. Walking strictly with the aid of [employer] walking boot for her right lower extremity for her Charcot deformity to prevent further collapsing to the midtarsal joint which will not allow the ulcer to heal. Continue local wound care at home. We will continue to follow in office. MELANIA Taylor/MARA /[id number]
[2018-09-14] MEDS ORDERED: CALCITRIOL 0.25 MCG CAP PO SCH (09:00)
== END 2018-09-13 18:35 | disposition home or self-care (01) | DRG 982 ==
LOC: ER 01:19 → ERHOLD 05:39 → MED/SURG 07:57
PROVIDERS: ADMIT Internal Medicine; ATTEND Internal Medicine
PROC: 0JDR0ZZ Extraction of Left Foot Subcutaneous Tissue and Fascia, Open Approach (ICD-10-PCS; principal; 2018-09-08)
PROC: 0JDQ0ZZ Extraction of Right Foot Subcutaneous Tissue and Fascia, Open Approach (ICD-10-PCS; 2018-09-08)
DX: K56.50 Intestinal adhesions [bands], unspecified as to partial versus complete obstruction (principal); L97.518 Non-pressure chronic ulcer of other part of right foot with other specified severity; L97.528 Non-pressure chronic ulcer of other part of left foot with other specified severity; A52.16 Charcot's arthropathy (tabetic); I13.0 Hypertensive heart and chronic kidney disease with heart failure and stage 1 through stage 4 chronic kidney disease, or unspecified chronic kidney disease; I50.22 Chronic systolic (congestive) heart failure; L97.422 Non-pressure chronic ulcer of left heel and midfoot with fat layer exposed; N18.4 Chronic kidney disease, stage 4 (severe); Z93.3 Colostomy status; E11.22 Type 2 diabetes mellitus with diabetic chronic kidney disease; I12.9 Hypertensive chronic kidney disease with stage 1 through stage 4 chronic kidney disease, or unspecified chronic kidney disease; E11.621 Type 2 diabetes mellitus with foot ulcer; Z79.4 Long term (current) use of insulin; E11.40 Type 2 diabetes mellitus with diabetic neuropathy, unspecified; K56.7 Ileus, unspecified
CPT/HCPCS: 36415; 71045; 74018; 74019; 74176; 80048; 80053; 81001; 82150; 82271; 82550; 82553; 82607; 82746; 82948; 83036; 83690; 83735; 84100; 84443; 84484; 85025; 85610; 85730; 86850; 86900; 93005; 96361; 96374; 96375; 96376; 97139; 99284; J0360; J0696; J1940; J2020; J2270; J2405; J2550; J2920; J7030; J7507; J7512; J7799

== ENCOUNTER 2018-10-20 04:44 | Inpatient (IN) | payer OTHER ==
[~2018-10-20] VITALS: Ht 170.2 cm; Wt 66.7 kg
[~2018-10-20 04:44] MED LIST changes: +BUMETANIDE2 MG PO
--- OUTSIDE RECORDS SUMMARY | 2018-10-20 04:47 | XMS REPORT | Clinical Summary ---
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 09/06/2016 [id number] / / [id number] Adhesion Barrier,Seprafilm 5x6 - Cement/Wong N/A: Abdomen GENZYME [id number] ler/Adhesi SURGICAL Implanted: Qty: 2 on 07/06/2014 by [employer] Amrit Elam MD 02/06/2017 [id number] / / [id number] Adhesion Barrier,Seprafilm 5x6 - Cement/Wong N/A: Abdomen GENZYME [id number] ler/Adhesi SURGICAL Implanted: Qty: 1 on 01/31/2015 by [employer] Amrit Elam MD [id number] / / Stent,Uret Polaris 5fr X 10cm - Uro Stent [place] [id number] SCIENTIFIC Implanted: Qty: 1 on 05/24/2013 03/09/2016 [id number] / / [id number] Stent,Uret Polaris 5fr X 10cm - Uro Stent Right: Ureter [place] [id number] [employer]ENTIFIC Implanted: Qty: 1 on 01/21/2014 by Baljit Larson MD Results Not on fileafter 10/19/2017 Insurance Payer Benefit Subscriber ID Type Phone Address Plan / Group [employer] TEX[employer] xxxxxxxxx Maps HMO ALL Contracted Advance Directives For more information, please contact: [id number] [place] [address] Date Inactivated Comments Code Status [...]
--- OUTSIDE RECORDS SUMMARY | 2018-10-20 04:49 | XMS REPORT | Continuity of Care Document ---
Author Author [employer] [facility] [facility] Organization [employer] [facility] [facility] Address Unknown Phone Unavailable Care Team Providers Care Teaching Young Name Role Phone [employer] Information Art of Click Unavailable Unavailable Problems Problem Status Onset Date [...] [facility] Atrial fibrillation Active Problem 07/09/2018 [facility] Blunt chest trauma Active Problem 07/09/2018 [facility] CHF Active Problem 07/09/2018 [facility] Chest pain Active Problem 07/09/2018 [facility] Chronic renal insufficiency Active Problem 07/09/2018 [facility] Cystitis Active Problem 07/09/2018 [facility] Diabetic foot ulcers Active Problem 07/09/2018 [facility] Dyspnea Active Problem 07/09/2018 [facility] HCAP Active Problem 07/09/2018 [facility] Hypertension Active Problem 07/09/2018 [facility] 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 [facility] Palpitations Active Problem 07/09/2018 [facility] Renal insufficiency Active Problem 07/09/2018 [facility] TIA Active Problem 07/09/2018 [facility] UTI Active Problem 07/09/2018 [facility] Renal transplant recipient Active Problem 07/09/2018 [facility] Renal transplant, status post Active Problem 07/09/2018 [facility] Medications Medication Details Route Status Patient Instructions Ordering Provider Order Date Source Amoxicillin/Potassium Clav (Amox Tr-K Clv 500-125 Mg Tab) 1 Each Tablet, Active 07/08/2018 [facility] Furosemide 40 Mg Tablet, 40 Mg Oral Daily Active 07/08/2018 [facility] Glipizide 10 Mg Tablet, 10 Mg Oral Twice A Day Active 07/08/2018 [facility] Bactroban Ointment 2 % 1 APPLICATION TOPICALLY DAILY External Active 06/21/2018 [facility]: [facility] Calcitriol Capsule 0.5 MCG 1 CAP(S) BY MOUTH DAILY ON FRI/FRI/FRI Oral Active 06/19/2018 [facility]: [facility] Folic Acid Tablet 1 MG Give 1 tablet by mouth one time a day for Supplement Oral Active 06/18/2018 [facility]: [facility] Vitamin B12 Tablet Extended Release 1000 MCG Give 1 tablet by mouth one time a day for Supplement Oral Active 06/18/2018 [facility] Brimonidine Tartrate Solution 0.1 % 1 DROP(S) IN EACH EYE DAILY Ophthalmic Active 06/18/2018 SN[facility]: [facility] Sodium Bicarbonate Tablet 650 MG Give 2 tablet by mouth three times a day related to KIDNEY TRANSPLANT STATUS (Z94.0) Oral Active 06/18/2018 SNF: [facility] Lasix Tablet 40 MG 1 TAB(S) BY MOUTH DAILY Oral Active 06/18/2018 SNF: [facility] guaiFENesin Syrup 100 MG/5ML Give 30 ml by mouth two times a day for Cough/Congestion [id number] Oral Active 06/18/2018 SNF: [facility] Magnesium Oxide Tablet 400 MG Give 1 tablet by mouth one time a day for Supplement Oral Active 06/18/2018 SNF: [facility] oxyCODONE HCl Tablet 5 MG Give 1 tablet by mouth every 4 hours as needed for pain DC Tippo once Oxycodone arrives Oral Active 06/18/2018 SNF: [facility] Tresiba Solution 100 UNIT/ML Inject 20 unit subcutaneously one time a day for DMII Subcutaneous Active 06/18/2018 [facility] Collagenase Ointment 250 UNIT/GM Apply to Right foot topically every day shift for Wound Care External Active 06/18/2018 SNF: [facility] Protonix Tablet Delayed Release 40 MG 1 TAB(S) BY MOUTH 2 TIMES A DAY Oral Active 06/18/2018 SNF: [facility] NIFEdipine ER Tablet Extended Release 24 Hour 30 MG Give 1 tablet by mouth every 12 hours for HTN Hold for SBP<110, HR<60 Oral Active 06/18/2018 SNF: [facility] Tacrolimus Capsule 1 MG 2 CAP(S) BY MOUTH EVERY 12 HOURS (2CAPS=2MG) Oral Active 06/18/2018 SNF: [facility] Latanoprost Solution 0.005 % 1 DROP(S) IN EACH EYE AT BEDTIME Ophthalmic Active 06/18/2018 SNF: [facility] Insulin Lispro Solution 100 UNIT/ML Inject as per sliding scale: if 121 - 150=2 units; 151 - 200=4 units; 201 - 250=6 units; 251 - 300=8 units; 301 - 350=10 units; 351 - 400=12 units; 401 - 999=14 units Call MD, subcutaneously before meals and at bedtime for DMII Subcutaneous Active 06/18/2018 SNF: [facility] Tippo Tablet 10-325 MG Give 1 tablet by [...] Oral Twice Daily With Meals Active 05/24/2018 [facility] Ciprofloxacin Hcl (Cipro) 250 Mg Tablet, 250 Mg Oral Every 12 Hours Active 05/23/2018 [facility] Glipizide (Glucotrol) 10 Mg Tablet, 10 Mg Oral Twice A Day Active 05/23/2018 [facility] Allopurinol 300 Mg Tablet, 300 Mg Oral Daily Active 05/03/2018 [facility] Amoxicillin/Potassium Clav (Augmentin 500-125 Tablet) 1 Each Tablet, 500 Mg Oral Twice A Day Active 05/03/2018 [facility] Santyl Ointment 250 UNIT/GM Apply to right [...] Tablet, 0.5 Mg Oral Daily Active 03/20/2018 [facility] Gabapentin 300 Mg Capsule, 300 Mg Oral Twice A Day Active 03/20/2018 [facility] Hydralazine Hcl 25 Mg Tab, 50 Mg Oral Every 6 Hours as needed for >[id number] Active 03/20/2018 [facility] Insulin Lisp Protam/Lisp Human (Humalog Mix 75-25 Vial) 100 Units/Ml Ml, Subcutaneously Before Meals And At Bedtime Active 03/20/2018 [facility] Metoclopramide Hcl (Reglan) 5 Mg Tablet, 5 Mg Oral Before Meals And At Bedtime Active 03/20/2018 [facility] Metoprolol Succinate 25 Mg Tab.er.24h, 25 Mg Oral Twice A Day as needed for High Blood Pressure Active 03/20/2018 [facility] Tacrolimus 1 Mg Capsule, 1 Mg Oral Twice A Day Active 03/20/2018 [facility] Torsemide 20 Mg Tablet, Active 03/20/2018 [facility] Warfarin Sodium 2 Mg Tablet, 2 Mg Oral Daily Active 03/20/2018 [facility] Tuberculin PPD Solution Inject 0.1 ml intradermally one time only for Prophylaxis for 1 Day Adm within first 24 hours of admission. Repeat yearly. Intradermal Active 03/14/2018 SNF: [facility] Hydralazine Hcl 25 Mg Tab, 100 Mg Oral Three Times A Day Active 03/14/2018 [facility] Hydralazine Hcl 25 Mg Tab, 50 Mg Oral Three Times A Day Active [facility] 03/13/2018 [facility] Insulin Detemir 100 Unit/Ml Pen, 13 Unit Sub-Q Bedtime Active [facility] 03/13/2018 [facility] Metoprolol Succinate (Toprol Xl) 25 Mg Tab.er.24h, 25 Mg Oral Twice A Day Active [facility] 03/13/2018 [facility] Sodium Bicarbonate 650 Mg Tablet, 1300 Mg Oral Twice A Day Active [facility] 03/13/2018 [facility] Amiodarone Hcl 200 Mg Tablet, 200 Mg Oral Daily Active 01/05/2018 [facility] Metoprolol Tartrate 50 Mg Tablet, 50 Mg Oral Twice A Day Active 02/23/2017 [facility] Pioglitazone Hcl (Actos*) 15 Mg Tablet, 30 Mg Oral Daily Active 01/19/2017 [facility] Warfarin Sodium 1 Mg Tablet, 1 Mg Oral M,F Active 01/19/2017 [facility] Insulin Lisp Protam/Lisp Human (Humalog Mix 75-25 Vial) 100 Units/Ml Ml, 60 Unit Subcutaneously Daily At 1700 Active 01/14/2017 [facility] Labetalol Hcl 200 Mg Tablet, 200 Mg Oral Daily Active 01/14/2017 [facility] Cholecalciferol (Vitamin D3) (Vitamin D) 1,000 Unit Tablet, 2000 Unit Oral Daily Active 11/05/2016 [facility] Brimonidine Tartrate (Combigan Eye Drops) 5 Ml Drpette Daily Active [facility] Bumetanide 1 Mg Tablet Three Times A Day Active [facility] Calcitriol 0.25 Mcg Capsule .// Active TAKE ON MONDAYS, WEDNESDAYS, AND FRIDAYS [facility] Diphenhydramine Hcl (Benadryl) 25 Mg Capsule Bedtime as needed for Sleep Active [facility] Fe Fumarate/Fa/Mv, Min Comb#15 (Hemocyte Plus Capsule) 1 Each Capsule Twice A Day Active [facility] Ferrous Sulfate (Feosol) 325 Mg Tablet Daily Active [facility] Hydralazine Hcl 25 Mg Tab Three Times A Day Active [facility] Latanoprost 2.5 Ml Drops Bedtime Active [facility] Linezolid (Zyvox) 600 Mg Tablet Every 12 Hours Active [facility] Magnesium Oxide 400 Mg Tablet Daily Active [facility] Metoprolol Tartrate 50 Mg Tablet Twice A Day Active [facility] Oxycodone Hcl/Acetaminophen (Oxycodone-Acetaminophen 5-325) 1 Each Tablet Every 4 Hours as needed for Pain Active 1-2 tablets [facility] Potassium Chloride 20 Meq Tab.er.prt Three Times Daily With Meals Active [facility] Prednisone 5 Mg Tablet Daily Active [facility] Santyl Bedtime Active [facility] Tacrolimus (Prograf) 1 Mg Cap Twice A Day Active [facility] Tramadol Hcl (Ultram) 50 Mg Tablet Every 6 Hours Active [facility] Tresiba Daily Active [facility] Warfarin Sodium 1 Mg Tablet Daily Active [facility] Zinc Acetate/[place]weet/[place] (Amerigel Wound Dressing Gel) 28.3 Gm Gel..gram. Daily Active [facility] Allergies, Adverse Reactions, Alerts No Known Medication [...] glucometer (mass/volume) 204 70 - 120 07/08/2018 [facility] Blood leukocytes automated count (number/volume) 8.76 4.8 - 10.8 07/07/2018 [facility] Blood erythrocytes automated count (number/volume) 3.41 4.3 - 5.7 07/07/2018 [facility] Blood hemoglobin measurement (moles/volume) 9.7 14.0 - 18.0 07/07/2018 [facility] Automated blood hematocrit (volume fraction) 30.7 38.2 - 49.6 07/07/2018 [facility] Automated erythrocyte mean corpuscular volume 90.0 81 - 99 07/07/2018 [facility] Automated erythrocyte mean corpuscular hemoglobin (mass per erythrocyte) 28.4 28 - 32 07/07/2018 [facility] Automated erythrocyte mean corpuscular hemoglobin concentration measurement (mass/volume) 31.6 31 - 35 07/07/2018 [facility] RDW BldCo-Rto 18.1 11.7 - 14.4 07/07/2018 [facility] Automated blood platelet count (count/volume) 269 140 - 360 07/07/2018 [facility] Automated blood segmented neutrophil count as percentage of total leukocytes 79.5 38.7 - 80.0 07/07/2018 [facility] Automated blood lymphocyte count as percentage ot total leukocytes 11.3 18.0 - 39.1 07/07/2018 [facility] Automated blood monocyte count as percentage of total leukocytes 7.4 4.4 - 11.3 07/07/2018 [facility] Automated blood eosinophil count as percentage of total leukocytes 0.5 0.0 - 6.0 07/07/2018 [facility] Automated blood basophil count as percentage of total leukocytes 0.2 0.0 - 1.0 07/07/2018 [facility] IM GRANULOCYTES % 1.1 0.0 - 1.0 07/07/2018 [facility] Automated blood neutrophil count 7.0 2.1 - 6.9 07/07/2018 [facility] Blood lymphocytes count (number/volume) 1.0 1.0 - 3.2 07/07/2018 [facility] Blood monocytes automated count (number/volume) 0.7 0.2 - 0.8 07/07/2018 [facility] Automated blood eosinophil count 0.0 0.0 - 0.4 07/07/2018 [facility] Automated blood basophil count (count/volume) 0.0 0.0 - 0.1 07/07/2018 [facility] Absolute Immature Granulocyte (auto 0.10 0 - 0.1 07/07/2018 [facility] Serum or plasma sodium measurement (moles/volume) 136 136 - 145 07/07/2018 [facility] Serum or plasma potassium measurement (moles/volume) 3.2 3.5 - 5.1 07/07/2018 [facility] Serum or plasma chloride measurement (moles/volume) 95 98 - 107 07/07/2018 [facility] Serum or plasma carbon dioxide, total measurement (moles/volume) 31 22 - 29 07/07/2018 [facility] Serum or plasma anion gap 13.2 8 - 16 07/07/2018 [facility] Serum or plasma urea nitrogen measurement (mass/volume) 63 7 - 26 07/07/2018 [facility] Serum or plasma creatinine measurement (mass/volume) 2.13 0.72 - 1.25 07/07/2018 [facility] Serum or plasma urea nitrogen/creatinine mass ratio 30 6 - 25 07/07/2018 [facility] Estimated glomerular filtration rate (GFR) determination 32 60 07/07/2018 [facility] Glucose measurement 76 74 - 118 07/07/2018 [facility] Serum or plasma calcium measurement (mass/volume) 8.7 8.4 - 10.2 07/07/2018 [facility] Prothrombin time (PT) in platelet poor plasma by coagulation assay 33.5 11.9 - 14.5 07/05/2018 [facility] INR in Platelet poor plasma by Coagulation assay 3.20 07/05/2018 [facility] Serum or plasma total bilirubin measurement (mass/volume) 0.4 0.2 - 1.2 07/05/2018 [facility] Aspartate Amino Transf (AST/SGOT) 25 5 - 34 07/05/2018 [facility] Serum or plasma alanine aminotransferase measurement (enzymatic activity/volume) 18 0 - 55 07/05/2018 [facility] Serum or plasma protein measurement (mass/volume) 5.3 6.5 - 8.1 07/05/2018 [facility] Serum or plasma albumin measurement (mass/volume) 1.5 3.5 - 5.0 07/05/2018 [facility] Plasma globulin measurement (mass/volume) 3.8 2.3 - 3.5 07/05/2018 [facility] Serum or plasma albumin/globulin mass ratio 0.4 0.8 - 2.0 07/05/2018 [facility] Serum or plasma alkaline phosphatase measurement (enzymatic activity/volume) 140 40 - 150 07/05/2018 [facility] Activated partial thromboplastin time (aPTT) in platelet poor plasma bycoagulation assay 43.4 23.8 - 35.5 06/29/2018 [facility] Differential Total Cells Counted 100 06/29/2018 [facility] Manual blood neutrophils/100 leukocytes 85 40 - 74 06/29/2018 [facility] Manual blood lymphocytes/100 leukocytes 8 19 - 48 06/29/2018 [facility] Manual blood monocytes/100 leukocytes 7 3.4 - 9.0 06/29/2018 [facility] Blood platelets count by estimate (number/volume) ADEQUATE 06/29/2018 [facility] Platelet morphology NORMAL 06/29/2018 [facility] Blood anisocytosis detection by light microscopy SLIGHT 06/29/2018 [facility] RBC morphology NORMAL 06/29/2018 [facility] Specimen source identification of body fluid PLEURAL 06/25/2018 [facility] Evaluation of color of body fluid YELLOW 06/25/2018 [facility] Determination of appearance of body fluid SL.CLOUDY 06/25/2018 [facility] Manual body fluid leukocytes count (number/volume) 158 06/25/2018 [facility] Manual body fluid erythrocytes count (number/volume) 42 06/25/2018 [facility] Manual body fluid neutrophils/100 leukocytes 78 06/25/2018 [facility] Body fluid lymphocyte count 2 06/25/2018 [facility] Body fluid monocyte count 3 06/25/2018 [facility] Body fluid other cells manual count 17 06/25/2018 [facility] Total cell count 100 06/25/2018 [facility] Body fluid protein measurement (mass/volume) 0.9 06/25/2018 [facility] Body fluid lactate dehydrogenase measurement (enzymatic activity/volume) 72 06/25/2018 [facility] Serum or plasma iron measurement (mass/volume) 13 65 - 175 06/24/2018 [facility] Serum or plasma transferrin measurement (mass/volume) < 70 174 - 364 06/24/2018 [facility] Serum or plasma ferritin measurement (mass/volume) 1897.52 21.81 - 274.66 06/24/2018 [facility] BNP Bld-mCnc 1388.0 0 - 100 06/24/2018 [facility] Blood culture NO GROWTH AFTER 5 DAYS, FINAL REPORT 06/23/2018 [facility] Stool gastrointestinal hemoglobin detection NEGATIVE NEGATIVE 06/23/2018 [facility] Urine color determination YELLOW YELLOW 06/22/2018 [facility] Urine clarity HAZY CLEAR 06/22/2018 [facility] Specific gravity of Urine by Test strip 1.015 1.010 - 1.025 06/22/2018 [facility] Urine pH measurement by automated test strip 6 5 - 7 06/22/2018 [facility] Urine leukocyte esterase detection by dipstick 1+ NEGATIVE 06/22/2018 [facility] Urine nitrite detection NEGATIVE NEGATIVE 06/22/2018 [facility] Urine protein measurement by test strip (mass/volume) NEGATIVE NEGATIVE 06/22/2018 [facility] Urine glucose detection NEGATIVE NEGATIVE 06/22/2018 [facility] Urine ketones detection by automated test strip NEGATIVE NEGATIVE 06/22/2018 [facility] Urine urobilinogen measurement by test strip (mass/volume) 0.2 0.2 - 1 06/22/2018 [facility] Urine total bilirubin measurement (mass/volume) NEGATIVE NEGATIVE 06/22/2018 [facility] Urine erythrocytes detection TRACE NEGATIVE 06/22/2018 [facility] Automated urine sediment leukocyte count by microscopy (number/high power field) >50 0 - 5 06/22/2018 [facility] Erythrocytes detection in urine sediment by light microscopy 11-20 0 - 5 06/22/2018 [facility] Bacteria detection in urine sediment by light microscopy MANY NONE 06/22/2018 [facility] Epithelial cells detection in urine sediment by light microscopy MANY NONE 06/22/2018 [facility] Yeast detection in urine sediment by light microscopy MANY NONE 06/22/2018 [facility] Serum or plasma creatine kinase measurement (enzymatic activity/volume) 9 30 - 200 06/22/2018 [facility] Serum or plasma creatine kinase MB measurement (mass/volume) 0.50 0 - 5.0 06/22/2018 [facility] Troponin I measurement by highly sensitive enzyme immunoassay 0.052 0 - 0.300 06/22/2018 [facility] Blood sugar Blood sugar 162 06/22/2018 SNF: [...] (PCT) level 0.35 0.00 - 0.08 06/17/2018 [facility] Serum or plasma cortisol measurement on morning peak specimen (mass/volume) 19.7 6.2 - 19.4 06/17/2018 [facility] Manual blood band neutrophils form/100 leukocytes 3 06/14/2018 [facility] Serum or plasma magnesium measurement (mass/volume) 1.5 1.3 - 2.1 06/13/2018 [facility] Manual blood eosinophil count as percentage of total leukocytes 1 0 - 7 06/12/2018 [facility] Manual blood metamyelocytes/100 leukocytes 4 0 - 0 06/12/2018 [facility] Blood toxic granules detection by light microscopy MODERATE 06/12/2018 [facility] Blood dohle body detection by light microscopy FEW 06/12/2018 [facility] Albumin (PEP) 2.8 2.9 - 4.4 06/12/2018 [facility] Serum or plasma alpha 1 globulin measurement by electrophoresis (mass/volume) 0.2 0.0 - 0.4 06/12/2018 [facility] Serum or plasma alpha 2 globulin measurement by electrophoresis (mass/volume) 0.7 0.4 - 1.0 06/12/2018 [facility] Serum or plasma beta globulin measurement by electrophoresis (mass/volume) 0.5 0.7 - 1.3 06/12/2018 [facility] Serum or plasma gamma globulin measurement by electrophoresis (mass/volume) 0.7 0.4 - 1.8 06/12/2018 [facility] Serum or plasma protein measurement (mass/volume) 4.8 6.0 - 8.5 06/12/2018 [facility] Serum globulin measurement by calculation (mass/volume) 2.0 2.2 - 3.9 06/12/2018 [facility] Serum immunoglobulin kappa light chains measurement (mass/volume) 34.2 3.3 - 19.4 06/12/2018 [facility] Serum or plasma immunoglobulin free lambda light chains measurement (mass/volume) 21.3 5.7 - 26.3 06/12/2018 [facility] Serum immunoglobulin kappa light chains/immunoglobulin lambda light chains mass ratio 1.61 0.26 - 1.65 06/12/2018 [facility] Serum or plasma protein monoclonal measurement by electrophoresis (mass/volume) Not Observed Not Observed 06/12/2018 [facility] Serum or plasma albumin/globulin mass ratio 1.4 0.7 - 1.7 06/12/2018 [facility] Protein Electrophoresis Note Comment . 06/12/2018 [facility] Manual blood myelocytes/100 leukocytes 4 0 - 0 06/11/2018 [facility] Blood promyelocytes/100 leukocytes 1 0 - 0 06/11/2018 [facility] Blood lymphocytes variant count (number/volume) 1 06/11/2018 [facility] Blood hypochromia detection by light microscopy SLIGHT 06/11/2018 [facility] Serum or plasma iron binding capacity measurement (mass/volume) 112 261 - 478 06/10/2018 [facility] Serum or plasma iron saturation measurement (mass fraction) 74 15 - 50 06/10/2018 [facility] Blood poikilocytosis detection by light microscopy SLIGHT 06/09/2018 [facility] Lactic Acid Level 17.6 4.5 - 19.8 06/08/2018 [facility] Blood microcytes detection by light microscopy SLIGHT 06/08/2018 [facility] Blood ovalocytes detection by light microscopy FEW 06/08/2018 [facility] Serum or plasma homocysteine measurement (moles/volume) 9.6 0.0 - 15.0 06/07/2018 [facility] Serum or plasma methylmalonate measurement (moles/volume) 450 06/07/2018 [facility] Fibrin D-dimer DDU measurement in platelet poor plasma (mass/volume) 383 0 - 400 06/07/2018 [facility] Fibrinogen measurement in platelet poor plasma by coagulation assay (mass/volume) 215 204 - 462 06/07/2018 [facility] Fibrin+fibrinogen fragments measurement (units/volume) in platelet poor plasma by latex agglutination <5 <5 06/07/2018 [facility] Clostridium difficile A and B toxin assay NEGATIVE NEGATIVE 06/06/2018 [facility] Phosphorus measurement 3.1 2.3 - 4.7 06/06/2018 [facility] Serum or plasma lactate dehydrogenase measurement (enzymatic activity/volume) 200 125 - 220 06/06/2018 [facility] Elliptocyte detection SLIGHT 06/06/2018 [facility] Blood cobalamin (vitamin B12) measurement (mass/volume) 361 213 - 816 06/05/2018 [facility] Serum or plasma folate measurement (mass/volume) 5.1 7.0 - 15.4 06/05/2018 [facility] Serum or plasma thyrotropin measurement by detection limit <=0.005 miu/l (units/volume) 1.760 0.350 - 4.940 06/05/2018 [facility] Urine Legionella pneumophila 1 antigen detection by immunoassay Negative Negative 06/04/2018 [facility] Arterial blood pH measurement 7.37 7.31 - 7.41 06/04/2018 [facility] pCO2 BldA 28 41 - 51 06/04/2018 [facility] pCO2 BldA 67 80 - 105 06/04/2018 [facility] Arterial blood bicarbonate measurement (moles/volume) 16 23 - 28 06/04/2018 [facility] Arterial blood base excess by calculation -9.0 -2 - 3 - 2 06/04/2018 [facility] Arterial blood oxygen saturation measurement 93.0 95 - 98 06/04/2018 [facility] FiO2 21 06/04/2018 [facility] Transitional cells detection in urine sediment by light microscopy MANY NONE 06/02/2018 [facility] Influenza virus A and B antigen identification by immunofluorescence NEGATIVE NEGATIVE 06/02/2018 [facility] Ammonia Ser-mCnc 32 31 - 123 05/23/2018 [facility] Blood sugar Blood sugar 116 04/08/2018 SNF: [...] Blood nucleated erythrocytes count (number/volume) 2 03/14/2018 [facility] Erythrocyte sedimentation rate by Westergren method 28 0 - 13 02/23/2018 [facility] Hemoglobin A1c Percent 8.1 4.0 - 7.0 02/23/2018 [facility] Serum or plasma triglyceride measurement (mass/volume) 135 0 - 149 02/23/2018 [facility] Serum or plasma cholesterol measurement (mass/volume) 153 0 - 199 02/23/2018 [facility] Serum or plasma cholesterol in LDL measurement (mass/volume) 84 60 - 130 02/23/2018 [facility] Serum or plasma cholesterol in HDL measurement (mass/volume) 42 40 - 60 02/23/2018 [facility] Serum or plasma total cholesterol/cholesterol in HDL mass ratio 3.6 3.9 - 4.7 02/23/2018 [facility] Bacteria identification in wound by culture Organism: PSEUDOMONAS AERUGINOSA 02/23/2018 [facility] Serum or plasma uric acid measurement (mass/volume) 10.6 4.8 - 8.0 01/05/2018 [facility] Bacterial urine culture Urine Culture [facility] Pathology Reports No Data Provided for This [...] Hospital Heart Rate 68 {beats}/min 06/22/2018 SNF: [facility] Systolic (mm Hg) 135 06/22/2018 [facility] Diastolic (mm Hg) 78 06/22/2018 SNF: [facility] Heart Rate 68 {beats}/min 06/22/2018 SNF: [facility] Systolic (mm Hg) 135 06/22/2018 [facility] Diastolic (mm Hg) 78 06/22/2018 [...] Hospital Heart Rate 73 {beats}/min 06/21/2018 [facility] Respitory Rate 18 06/21/2018 [facility] Systolic (mm Hg) 114 06/21/2018 [facility] [place] Diastolic (mm Hg) 52 06/21/2018 [facility] Temperature Oral (F) 97.8 F 06/21/2018 SNF: [facility] Heart Rate 81 {beats}/min 06/21/2018 [facility] [place] Systolic (mm Hg) 135 06/21/2018 [facility] [place] Diastolic (mm Hg) 77 06/21/2018 [facility] Heart Rate 80 {beats}/min 06/21/2018 [facility] [place] Systolic (mm Hg) 135 06/21/2018 [facility] Diastolic (mm Hg) 77 06/21/2018 SNF: [facility] Heart Rate 68 {beats}/min 06/21/2018 [facility] Respitory Rate 18 06/20/2018 [facility] Systolic (mm Hg) 137 06/20/2018 [facility] [place] Diastolic (mm Hg) 76 06/20/2018 SNF: [facility] Temperature Oral (F) 97.9 F 06/20/2018 SNF: [facility] Heart Rate 73 {beats}/min 06/20/2018 [facility] [place] Systolic (mm Hg) 130 06/20/2018 [facility] Diastolic (mm Hg) 86 06/20/2018 SNF: [facility] Heart Rate 75 {beats}/min 06/20/2018 [facility] Respitory Rate 18 06/20/2018 [facility] [place] Systolic (mm Hg) 134 06/20/2018 [facility] [place] Diastolic (mm Hg) 62 06/20/2018 SNF: [facility] Temperature Oral (F) 98.1 F 06/20/2018 SNF: [facility] Heart Rate 76 {beats}/min 06/20/2018 SNF: [facility] Systolic (mm Hg) 130 06/20/2018 SNF: [facility] Diastolic (mm Hg) 86 06/20/2018 SNF: [facility] Heart Rate 75 {beats}/min 06/20/2018 SNF: [facility] [place] Respitory Rate 18 06/20/2018 SNF: [facility] Systolic (mm Hg) 125 06/20/2018 SNF: [facility] [place] Diastolic (mm Hg) 65 06/20/2018 SNF: [facility] Temperature Oral (F) 97.5 F 06/20/2018 SNF: [facility] Heart Rate 90 {beats}/min 06/20/2018 [facility] Respitory Rate 18 06/20/2018 SNF: [facility] Systolic (mm Hg) 119 06/20/2018 [facility] Diastolic (mm Hg) 69 06/20/2018 [facility] Heart Rate 104 {beats}/min 06/20/2018 [facility] Respitory Rate 18 06/19/2018 [facility] [place] Systolic (mm Hg) 157 06/19/2018 SNF: [facility] Diastolic (mm Hg) 84 06/19/2018 SNF: [facility] Temperature Oral (F) 97.6 F 06/19/2018 SNF: [facility] Heart Rate 75 {beats}/min 06/19/2018 SNF: [facility] Systolic (mm Hg) 157 06/19/2018 [facility] [place] Diastolic (mm Hg) 84 06/19/2018 [facility] Heart Rate 75 {beats}/min 06/19/2018 [facility] [place] Systolic (mm Hg) 157 06/19/2018 [facility] [place] Diastolic (mm Hg) 84 06/19/2018 [facility] Heart Rate 75 {beats}/min 06/19/2018 [facility] [place] Respitory Rate 18 06/19/2018 [facility] [place] Systolic (mm Hg) 100 06/19/2018 [facility] [place] Diastolic (mm Hg) 64 06/19/2018 [facility] Temperature Oral (F) 98 F 06/19/2018 [facility] Heart Rate 90 {beats}/min 06/19/2018 [facility] Respitory Rate 18 06/19/2018 [facility] [place] Systolic (mm Hg) 113 06[facility]19/2018 [facility] [place] Diastolic (mm Hg) 81 06/19/2018 SNF: [facility] Temperature Oral (F) 97.3 F 06/19/2018 SNF: [facility] Heart Rate 89 {beats}/min 06/19/2018 [facility] [place] Systolic (mm Hg) 159 06/19/2018 [facility] [place] Diastolic (mm Hg) 74 06/19/2018 [facility] Heart Rate 80 {beats}/min 06/19/2018 [facility] [place] Systolic (mm Hg) 159 06/19/2018 [facility] [place] Diastolic (mm Hg) 74 06/19/2018 [facility] [place] Heart Rate 80 {beats}/min 06/19/2018 [facility] [place] Respitory Rate 17 06/18/2018 [facility] [place] Systolic (mm Hg) 112 06/18/2018 [facility] [place] Diastolic (mm Hg) 62 06/18/2018 SNF: [facility] Temperature Oral (F) 98.5 F 06/18/2018 SNF: [facility] Heart Rate 96 {beats}/min 06/18/2018 SNF: [facility] [place] Systolic (mm Hg) 112 06/18/2018 SNF: [facility] Diastolic (mm Hg) 62 06/18/2018 SNF: [facility] Heart Rate 96 {beats}/min 06/18/2018 [facility] Systolic (mm Hg) 110 06/18/2018 SNF: [facility] Diastolic (mm Hg) 54 06/18/2018 SNF: [facility] Heart Rate 98 {beats}/min 06/18/2018 SNF: [facility] Weight 195.8 06/18/2018 SNF: [facility] Height 67 06/18/2018 [facility] Respitory Rate 18 06/18/2018 [facility] Heart Rate 100 {beats}/min 06/17/2018 [facility] Respitory Rate 18 04/08/2018 [facility] Systolic (mm Hg) 136 04/08/2018 SNF: [facility] Diastolic (mm Hg) 72 04/08/2018 SNF: [facility] Temperature Oral (F) 97.9 F 04/08/2018 SNF: [facility] Heart Rate 88 {beats}/min 04/08/2018 SNF: [facility] Respitory Rate 18 04/08/2018 SNF: [facility] Systolic (mm Hg) 136 04/08/2018 SNF: [facility] [place] Diastolic (mm Hg) [...] Hospital Heart Rate 89 {beats}/min 04/08/2018 [facility] Respitory Rate 18 04/08/2018 SNF: [facility] [place] Systolic (mm Hg) 148 04/08/2018 SNF: [facility] Diastolic (mm Hg) 60 04/08/2018 SNF: [facility] Temperature Oral (F) 96.8 F 04/08/2018 SNF: [facility] Heart Rate 80 {beats}/min 04/08/2018 SNF: [facility] [place] Respitory Rate 18 04/08/2018 SNF: [facility] [place] Systolic (mm Hg) 148 04/08/2018 SNF: [facility] [place] Diastolic (mm Hg) 60 04/08/2018 SNF: [facility] Temperature Oral (F) 96.8 F 04/08/2018 SNF: [facility] Heart Rate 80 {beats}/min 04/08/2018 SNF: [facility] [place] Respitory Rate 18 04/07/2018 SNF: [facility] Systolic (mm Hg) 148 04/07/2018 SNF: [facility] [place] Diastolic (mm Hg) 60 04/07/2018 [...] Temperature Oral (F) 96.4 F 04/07/2018 SNF: [facility] Heart Rate 82 {beats}/min 04/07/2018 [facility] [place] Respitory Rate 18 04/07/2018 [facility] [place] Systolic (mm Hg) 128 04/07/2018 [facility] [place] Diastolic (mm Hg) 66 04/07/2018 [facility] [place] Temperature Oral (F) 98 F 04/07/2018 [facility] [place] Heart Rate 72 {beats}/min 04/07/2018 [facility] [place] Respitory Rate 18 04[facility]07/2018 [facility] [place] Systolic (mm Hg) 128 04/07/2018 [facility] [place] Diastolic (mm Hg) 66 04/07/2018 [facility] Temperature Oral (F) 98 F 04/07/2018 [facility] Heart Rate 72 {beats}/min 04/07/2018 [facility] [place] Respitory Rate 18 04/06/2018 [facility] [place] Systolic (mm Hg) 125 04/06/2018 [facility] [place] Diastolic (mm Hg) 74 04/06/2018 [facility] Temperature Oral (F) 97.8 F 04/06/2018 SNF: [facility] Heart Rate 73 {beats}/min 04/06/2018 [facility] [place] Respitory Rate 18 04/06/2018 [facility] [place] Systolic (mm Hg) 125 04/06/2018 [facility] [place] Diastolic (mm Hg) 74 04/06/2018 [facility] Temperature Oral (F) 97.8 F 04/06/2018 [facility] [place] Heart Rate 73 {beats}/min 04/06/2018 [facility] [place] Respitory Rate 18 04/06/2018 [facility] [place] Systolic (mm Hg) 129 04/06/2018 [facility] [place] Diastolic (mm Hg) 83 04/06/2018 SNF: [facility] Temperature Oral (F) 98.3 F 04/06/2018 [facility] Heart Rate 66 {beats}/min 04/06/2018 [facility] [place] Respitory Rate 18 04[facility]06/2018 [facility] [place] Systolic (mm Hg) 129 04/06/2018 [facility] [place] Diastolic (mm Hg) 83 04/06/2018 [facility] Temperature Oral (F) 98.3 F 04/06/2018 [facility] [place] Heart Rate 66 {beats}/min 04/06/2018 [facility] [place] Respitory Rate 17 04/06/2018 [facility] [place] Systolic (mm Hg) 132 04/06/2018 [facility] [place] Diastolic (mm Hg) 74 04/06/2018 [facility] Temperature Oral (F) 98.8 F 04/06/2018 [facility] Heart Rate 70 {beats}/min 04/06/2018 [facility] [place] Respitory Rate 17 04[facility]06/2018 [facility] [place] Systolic (mm Hg) 132 04/06/2018 [facility] [place] Diastolic (mm Hg) 74 04/06/2018 SNF: [facility] Temperature Oral (F) 98.8 F 04/06/2018 SNF: [facility] Heart Rate 70 {beats}/min 04/06/2018 [facility] [place] Respitory Rate 17 04[facility]06/2018 [facility] [place] Systolic (mm Hg) 132 04/06/2018 [facility] [place] Diastolic (mm Hg) 74 04/06/2018 [facility] Temperature Oral (F) 98.8 F 04/06/2018 [facility] Heart Rate 70 {beats}/min 04/06/2018 [facility] [place] Respitory Rate 17 04/06/2018 [facility] [place] Systolic (mm Hg) 132 04/06/2018 [facility] Di[facility] (mm Hg) 74 04/06/2018 SNF: [facility] Temperature Oral (F) 98.8 F 04/06/2018 SNF: [facility] Heart Rate 70 {beats}/min 04/06/2018 SNF: [facility] [place] Respitory Rate 18 04/05/2018 SNF: [facility] Systolic (mm Hg) 138 04/05/2018 SNF: [facility] [place] Diastolic (mm Hg) [...] Hospital Heart Rate 88 {beats}/min 04/05/2018 SNF: [facility] [place] Respitory Rate 18 04/05/2018 SNF: [facility] [place] Systolic (mm Hg) 147 04/05/2018 SNF: [facility] [place] Diastolic (mm Hg) 65 04/05/2018 SNF: [facility] Temperature Oral (F) 97.5 F 04/05/2018 SNF: [facility] Heart Rate 87 {beats}/min 04/05/2018 SNF: [facility] Respitory Rate 18 04/05/2018 SNF: [facility] Systolic (mm Hg) 147 04/05/2018 SNF: [facility] [place] Diastolic (mm Hg) [...] Hospital Heart Rate 65 {beats}/min 04/05/2018 SNF: [facility] [place] Respitory Rate 17 04/05/2018 [facility] [place] Systolic (mm Hg) 120 04/05/2018 SNF: [facility] [place] Diastolic (mm Hg) 72 04/05/2018 SNF: [facility] Temperature Oral (F) 98.8 F 04/05/2018 SNF: [facility] Heart Rate 65 {beats}/min 04/05/2018 SNF: [facility] Respitory Rate 17 04/05/2018 SNF: [facility] Systolic (mm Hg) 120 04/05/2018 SNF: [facility] Diastolic (mm Hg) 72 04/05/2018 [facility] Heart Rate 65 {beats}/min 04/05/2018 [facility] [place] Respitory Rate 18 04/04/2018 [facility] [place] Systolic (mm Hg) 125 04/04/2018 SNF: [facility] [place] Diastolic (mm Hg) 76 04/04/2018 SNF: [facility] Temperature Oral (F) 97.4 F 04/04/2018 SNF: [facility] Heart Rate 78 {beats}/min 04/04/2018 [facility] [place] Respitory Rate 18 04/04/2018 [facility] Heart Rate 85 {beats}/min 04/04/2018 [facility] Respitory Rate 17 04/04/2018 [facility] [place] Systolic (mm Hg) 159 04/04/2018 [facility]: [facility] [place] Diastolic (mm Hg) 68 04/04/2018 [facility] Temperature Oral (F) 98.6 F 04/04/2018 [facility] [place] Heart Rate 85 {beats}/min 04/04/2018 [facility]: [facility] [place] Respitory Rate 17 04/03/2018 [facility] [place] Systolic (mm Hg) 159 04/03/2018 [facility] [place] Diastolic (mm Hg) 68 04/03/2018 [facility] Temperature Oral (F) 98.6 F 04/03/2018 [facility] Heart Rate 85 {beats}/min 04/03/2018 [facility] [place] Heart Rate 62 {beats}/min 04/03/2018 SNF: [facility] Heart Rate 62 {beats}/min 04/03/2018 [facility] Respitory Rate 20 04[facility]03/2018 [facility] [place] Systolic (mm Hg) 141 04/03/2018 [facility] [place] Diastolic (mm Hg) 78 04/03/2018 [facility] Temperature Oral (F) 97.9 F 04/03/2018 [facility] Heart Rate 79 {beats}/min 04/03/2018 [facility] Respitory Rate 20 04/03/2018 [facility] [place] Systolic (mm Hg) 141 04/03/2018 [facility] [place] Diastolic (mm Hg) 78 04/03/2018 [facility] Temperature Oral (F) 97.9 F 04/03/2018 [facility] [place] Heart Rate 79 {beats}/min 04/03/2018 [facility] [place] Respitory Rate 20 04/02/2018 [facility] Systolic (mm Hg) 126 04/02/2018 SNF: [facility] Diastolic (mm Hg) 73 04/02/2018 [facility] Systolic (mm Hg) 122 04/01/2018 [facility] [place] Diastolic (mm Hg) 70 04[facility]01/2018 [facility] Temperature Oral (F) 97.8 F 04/01/2018 [facility] Heart Rate 70 {beats}/min 04/01/2018 [facility] [place] Respitory Rate 18 04[facility]01/2018 [facility] [place] Systolic (mm Hg) 122 04/01/2018 [facility] [place] Diastolic (mm Hg) 70 04/01/2018 [facility] Temperature Oral (F) 97.8 F 04/01/2018 [facility] Heart Rate 70 {beats}/min 04/01/2018 [facility]: [facility] Respitory Rate 18 04[facility]01/2018 [facility] Systolic (mm Hg) 122 04/01/2018 [facility] [place] Diastolic (mm Hg) 70 04/01/2018 SNF: [facility] Temperature Oral (F) 97.8 F 04/01/2018 SNF: [facility] Heart Rate 70 {beats}/min 04/01/2018 [facility] Respitory Rate 18 04/01/2018 [facility] Systolic (mm Hg) 122 04/01/2018 [facility] [place] Diastolic (mm Hg) 70 04/01/2018 SNF: [facility] Temperature Oral (F) 97.8 F 04/01/2018 SNF: [facility] Heart Rate 70 {beats}/min 04/01/2018 [facility] [place] Respitory Rate 18 04/01/2018 [facility] [place] Systolic (mm Hg) 124 04/01/2018 [facility] [place] Diastolic (mm Hg) 72 04/01/2018 [facility] Temperature Oral (F) 97.2 F 04/01/2018 SNF: [facility] Heart Rate 74 {beats}/min 04/01/2018 [facility] 18 04/01/[facility] Systolic (mm Hg) 124 04/01/2018 [facility] [place] Diastolic (mm Hg) 72 04/01/2018 SNF: [facility] Temperature Oral (F) 97.2 F 04/01/2018 SNF: [facility] Heart Rate 74 {beats}/min 04/01/2018 [facility] [place] Respitory Rate 18 03/31/2018 SNF: [facility] [place] Systolic (mm Hg) 122 03/31/2018 SNF: [facility] [place] Diastolic (mm Hg) 76 03/31/2018 SNF: [facility] Temperature Oral (F) 97.4 F 03/31/2018 SNF: [facility] Heart Rate 76 {beats}/min 03/31/2018 [facility] Respitory Rate 18 03/[facility]/2018 [facility] Heart Rate 74 {beats}/min 03/31/2018 [facility] Resp[facility] Rate 16 03/31/2018 [facility] Systolic (mm Hg) 110 03/31/2018 [facility] Diastolic (mm Hg) 75 03/31/2018 SNF: [facility] Temperature Oral (F) 97.5 F 03/31/2018 SNF: [facility] Heart Rate 78 {beats}/min 03/31/2018 [facility] Respitory Rate 16 03/31/2018 [facility] Systolic (mm Hg) 110 03/31/2018 [facility] Diastolic (mm Hg) 75 03/31/2018 SNF: [facility] Temperature Oral (F) 97.5 F 03/31/2018 SNF: [facility] Heart Rate 78 {beats}/min 03/31/2018 SNF: [facility] Respitory Rate 18 03/30/2018 SNF: [facility] Systolic (mm Hg) 148 03/30/2018 SNF: [facility] [place] Diastolic (mm Hg) [...] Hospital Heart Rate 77 {beats}/min 03/30/2018 SNF: [facility] [place] Respitory Rate 18 03/29/2018 SNF: [facility] Systolic (mm Hg) 150 03/29/2018 [facility] Diastolic (mm Hg) 82 03/29/2018 [facility]: [facility] [...] DC Date Status Source Discharged Inpatient (obs) [id number] KALEB CHA MD 01/04/2018 01/06/2018 [facility] Discharged Inpatient [id number] KALEB CHA MD 02/23/2018 03/14/2018 [facility] Discharged Inpatient [id number] KALEB CHA MD 03/26/2018 03/27/2018 [facility] Discharged Inpatient (obs) [id number] KALEB CHA MD 05/04/2018 05/04/2018 [facility] Discharged Inpatient [id number] KALEB CHA MD 05/08/2018 05/15/2018 [facility] Discharged Inpatient (obs) [id number] KALEB CHA MD 05/23/2018 05/24/2018 [facility] Discharged Inpatient [id number] KALEB CHA MD 06/04/2018 06/17/2018 [facility] Discharged Inpatient [id number] KALEB CHA MD 06/22/2018 07/08/2018 [facility] Procedures Procedure Code Date Perfomer Comments Source CT of abdomen and pelvis without contrast [id number] 07/05/2018 [facility] X-ray of chest, two views [id number] 06/30/2018 [facility] Thoracentesis with ultrasound guidance [id number] 06/25/2018 [facility] X-ray of chest, two views [id number] 06/16/2018 [facility] TRANSFUSE NONAUT PLATELETS IN PERIPH VEIN, PERC [id number] 06/10/2018 [facility] TRANSFUSE NONAUT RED BLOOD CELLS IN PERIPH VEIN, PERC [id number] 06/06/2018 [facility] Computed tomography of chest without contrast [id number] 06/03/2018 [facility] X-ray of chest, single view [id number] 06/02/2018 [facility] Computed tomography of brain without radiopaque contrast [id number] 05/23/2018 [facility] X-ray of chest, single view [id number] 05/03/2018 [facility] X-ray of chest, single view [id number] 03/20/2018 [facility] CT of abdomen and pelvis without contrast [id number] 03/04/2018 [facility] EXCISION OF R FOOT SUBCU/FASCIA, OPEN APPROACH [id number] [facility] contrast [id number] 02/24/2018 [facility] CT of abdomen and pelvis without contrast [id number] 02/23/2018 [facility] CT of abdomen and pelvis without contrast [id number] 01/05/2018 [facility] Computed tomography of chest without contrast [id number] 01/05/2018 [facility] X-ray of chest, two views [id number] 01/04/2018 JAMEL [facility] Assessment and Plan No Data Provided for This Section Plan of Care Plan of Care Date Source Discharge Date 07/08/18 7:15pm Disposition HOME HEALTH SERVICE Instructions/Education Provided Anemia Pyelonephritis Prescriptions See Medication Section Additional Instructions/Education DO NOT GIVE ANY DIABETIC MEDICATION ,GLIPIZIDE WAS DISCONTINUED. FOLLOW UP WITH [facility] NEXT WEEK. 07/08/2018 [facility] Social History Social History Date Source Social [...] 02/09/2017 3:54pm Not Applicable Not Applicable 07/08/2018 [facility] Smoking StatusStart DateEnd Date Unknown if ever [...] of hypertension Not Recorded 01/14/2017 3:25pm 07/08/2018 [facility] Advance Directives Order Name Results Value Date Source Advance Directives Advance Directives Directive Response Recorded Date/Time Does the patient have an advance directive? No 06/22/18 10:45pm If yes, is advance directive on file with [facility]? No 06/22/18 10:45pm If not on file with [facility] will patient provide a copy? No 06/22/18 10:45pm Do you have a Directive to Physician? Yes 06/22/18 5:34pm Do you have a Medical Power of Student Services Dean? Yes 06/22/18 5:34pm Do you have an [...] rights and responsibilities? Yes 06/22/18 5:34pm 07/08/2018 [facility] Advance Directives Advance Directives Cardiopulmonary Resuscitation 06/22/2018 SNF: [facility] Advance Directives Advance Directives Cardiopulmonary Resuscitation 04/08/2018 SNF: [facility] Functional Status No Data Provided for This Section
[2018-10-20 05:23] LABS: BASOPHILS % 0.2 % (0.0-1.0); EOSINOPHILS % 0.3 % (0.0-6.0); HEMOGLOBIN 9.1 g/dL (14.0-18.0); LYMPHOCYTES # (AUTO) 1.3 (1.0-3.2); LYMPHOCYTES % 9.5 % (18.0-39.1); MEAN CORPUSCULAR HEMOGLOBIN 31.3 pg (28-32); MEAN CORPUSCULAR HGB CONC 32.5 g/dL (31-35); MEAN CORPUSCULAR VOLUME 96.2 fL (81-99); MONOCYTES # (AUTO) 0.6 (0.2-0.8); MONOCYTES % 4.7 % (4.4-11.3); NEUTROPHILS # (AUTO) 10.9 (2.1-6.9); PLATELET COUNT 331 x10e3/uL (140-360); RED BLOOD COUNT 2.91 x10e6/uL (4.3-5.7)
[2018-10-20] MEDS ORDERED: DIATRIZOATE MEGL/DIATRIZOA SOD 30 ML BTL PO ONE (05:24)
[2018-10-20 05:34] LABS: AMYLASE 21 U/L (25-125); INR 1.41; PROTHROMBIN TIME 17.8 seconds (11.9-14.5)
[2018-10-20 05:35] LABS: PARTIAL THROMBOPLASTIN TIME 41.4 seconds (23.8-35.5)
[2018-10-20] MEDS ORDERED: ONDANSETRON HCL INJ 2MG/ML 2ML 2 MG/ML VIAL IV STA (05:41)
[2018-10-20 05:44] LABS: ALBUMIN 3.1 g/dL (3.5-5.0); ANION GAP 14.8 mmol/L (8-16); CALCIUM 9.4 mg/dL (8.4-10.2); CREATININE, SERUM 2.24 mg/dL (0.72-1.25); POTASSIUM 3.8 mmol/L (3.5-5.1)
[2018-10-20] MEDS ORDERED: MORPHINE SULFATE INJ 4 MG/ML INJ 1ML IV ONE (05:45)
[2018-10-20] MEDS ORDERED: DEXTROSE 50% SYRINGE 50 ML IV STA (05:48)
[2018-10-20] MEDS ORDERED: HYDRALAZINE HCL 20 MG/ML VIAL IV STA (05:51)
[2018-10-20] MEDS ORDERED: ONDANSETRON HCL INJ 2MG/ML 2ML 2 MG/ML VIAL ONE (05:57)
[2018-10-20] MEDS ORDERED: MORPHINE SULFATE INJ 4 MG/ML INJ 1ML ONE (05:57)
--- NOTE | 2018-10-20 07:00 | NUR ---
RECEIVED REPORT FROM CHARLIE Murillo PATIENT STILL NEEDS URINE SAMPLE, GIVEN URINAL. WILL ASSIT
[2018-10-20 07:04] LABS: CREATINE KINASE MB 2.5 ng/mL (0-5.0)
[2018-10-20 07:15] LABS: LIPASE < 4 U/L (8-78)
--- NOTE | 2018-10-20 07:15 | NUR ---
PATIENT STATES HE IS NOT HUNGRY. STATES HIS LAST MEAL WAS LAST NIGHT. RIGHT BOTTOM OF FOOT, DEEP WOUND LEFT HEEL ULCER. BOTH ARE COVERED WITH KERLEX. PER HE IS BEING FOLLOWED BY DR. RANGEL AND HE DOES HIS WOUND CARE
[2018-10-20] MEDS ORDERED: HYDRALAZINE HCL 20 MG/ML VIAL IV PRN ×2 (07:30→13:15)
--- NOTE | 2018-10-20 07:33 | NUR ---
DR. CHA AT BEDSIDE RE EVALUATING PATIENT. AWARE OF BP AND WILL ORDER MEDICATION
[2018-10-20 07:34] LABS: BAND NEUTROPHILS % (MANUAL) 4 %; EOSINOPHILS % (MANUAL) 1 % (0-7); LYMPHOCYTES % (MANUAL) 15 % (19-48); MONOCYTES % (MANUAL) 10 % (3.4-9.0); NEUTROPHILS % (MANUAL) 70 % (40-74)
[2018-10-20 07:35] LABS: ANISOCYTOSIS SLIGHT; PLATELET ESTIMATE ADEQUATE; PLATELET MORPHOLOGY COMMENT NORMAL; POIKILOCYTOSIS SLIGHT; RBC MORPHOLOGY COMMENT NORMAL
--- NOTE | 2018-10-20 07:35 | NUR ---
PATIENT REFUSING [facility] CATH. DR. STARLA HERNANDEZ
--- NOTE | 2018-10-20 08:16 | Diagnostic Imaging Report ---
EXAMINATION: CT of the abdomen and pelvis without contrast. TECHNIQUE: Spiral CT images of the abdomen and pelvis were performed from the lung bases to the lesser trochanters. No intravenous contrast was given per renal stone protocol. Coronal and sagittal reformatted images were obtained. COMPARISON: CT abdomen and pelvis 07/05/2018 CLINICAL HISTORY:Abdominal pain, concern for bowel obstruction DISCUSSION: ABSENCE OF INTRAVENOUS CONTRAST DECREASES SENSITIVITY FOR DETECTION OF FOCAL LESIONS AND VASCULAR PATHOLOGY. ABDOMEN/PELVIS: LOWER THORAX: Moderate bilateral pleural effusions, decreased in size relative to 07/05/2018. Improved passive atelectasis of the lower lungs. Calcified granuloma right lower lobe, unchanged. HEPATOBILIARY:Calcific granuloma in segment 7. Otherwise no focal hepatic lesion. No intrahepatic biliary ductal dilatation. Gallbladder is unremarkable. SPLEEN: No splenomegaly. PANCREAS: Atrophic without focal mass or ductal dilatation. ADRENALS: No adrenal nodules. KIDNEYS/URETERS: Atrophy of the [place] kidneys. Right lower quadrant transplant kidney without hydronephrosis or calculus. PELVIC ORGANS/BLADDER: Urinary bladder is unremarkable. Coarse prostatic calcifications. PERITONEUM/RETROPERITONEUM: No free air or fluid. LYMPH NODES: No pelvic sidewall, retroperitoneal, or mesenteric lymphadenopathy. VESSELS: Extensive atherosclerotic calcification of the abdominal aorta, iliac arterial systems, and all major branch vessels. Coronary artery calcifications. Infrarenal IVC filter unchanged in position. 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 There is concentric wall thickening and adjacent inflammatory change of the cecum and proximal ascending colon as exemplified on series 2 image 50. Rectal stump is unremarkable. There is no small bowel dilatation to suggest obstruction. Oral contrast opacifies the cecum. BONES AND SOFT TISSUES: No osseous destructive lesions. Multilevel degenerative disc changes and facet arthropathy of the lumbar spine. Persistent incompletely healed fractures of several left lower ribs as seen on comparison. Small fat-containing right lower quadrant ventral hernia presumably related to kidney transplant operation is unchanged. Anasarca/subcutaneous edema along the right lower abdominal wall described on the comparison study has largely resolved. IMPRESSION: Findings suggestive of infectious or inflammatory colitis involving the cecum and ascending colon. No david perforation or drainable fluid collection. No evidence of bowel obstruction per clinical query. Improvement in still-moderate bilateral pleural effusions relative to 07/05/2018. [place] renal atrophy with right lower quadrant transplant kidney without evidence of hydronephrosis. Atherosclerotic vascular disease. Signed by: Dr. Amrit Mcintosh M.D. on 10/20/2018 8:13 AM
[2018-10-20] MEDS ORDERED: CIPROFLOXACIN 200 MG/D5W 100ML 100 ML IV STA (08:31)
--- NOTE | 2018-10-20 08:38 | NUR ---
DR. CHA AT BEDSIDE UPDATING PATIENT ON STATUS. MADE PATIENT AWARE HE WOULD BE ADMITTED
[2018-10-20] MEDS ORDERED: ONDANSETRON HCL INJ 2MG/ML 2ML 2 MG/ML VIAL IV PRN (08:45)
--- NOTE | 2018-10-20 08:55 | Diagnostic Imaging Report ---
EXAMINATION: CHEST SINGLE (PORTABLE) INDICATION: Chest pain COMPARISON: Chest radiograph of 09/07/2018 FINDINGS: LINES/TUBES:None LUNGS:The lung volumes are low. There is perihilar fullness and indistinctness of the pulmonary vasculature. PLEURA:No pleural effusion or pneumothorax. MEDIASTINUM:Cardiomediastinal silhouette is stably enlarged. Atherosclerotic calcifications of the thoracic aorta. BONES/SOFT TISSUES:No acute osseous injury. ABDOMEN:No free air under the diaphragm. IMPRESSION: Pulmonary edema and cardiomegaly, not significantly changed from 09/07/2018. Signed by: Richar Cruz MD on 10/20/2018 8:52 AM
[2018-10-20] MEDS ORDERED: DEXTROSE 50% SYRINGE 50 ML IV ONE (09:07)
[2018-10-20] MEDS ORDERED: DEXTROSE 50% SYRINGE 50 ML IV PRN (09:15)
--- OUTSIDE RECORDS SUMMARY | 2018-10-20 09:29 | XMS REPORT | Clinical Summary ---
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 09/06/2016 [id number] / / [id number] Adhesion Barrier,Seprafilm 5x6 - Cement/Wong N/A: Abdomen GENZYME [id number] ler/Adhesi SURGICAL Implanted: Qty: 2 on 07/06/2014 by [employer] Amrit Elam MD 02/06/2017 [id number] / / [id number] Adhesion Barrier,Seprafilm 5x6 - Cement/Wong N/A: Abdomen GENZYME [id number] ler/Adhesi SURGICAL Implanted: Qty: 1 on 01/31/2015 by [employer] Amrit Elam MD [id number] / / Stent,Uret Polaris 5fr X 10cm - Uro Stent [place] [id number] SCIENTIFIC Implanted: Qty: 1 on 05/24/2013 03/09/2016 [id number] / / [id number] Stent,Uret Polaris 5fr X 10cm - Uro Stent Right: Ureter [place] [id number] [employer]ENTIFIC Implanted: Qty: 1 on 01/21/2014 by Baljit Larson MD Results Not on fileafter 10/19/2017 Insurance Payer Benefit Subscriber ID Type Phone Address Plan / Group [employer] TEX[employer] xxxxxxxxx Maps HMO ALL Contracted Advance Directives For more information, please contact: [phone] [place] [address] Date Inactivated Comments Code Status [...]
--- OUTSIDE RECORDS SUMMARY | 2018-10-20 09:33 | XMS REPORT | Continuity of Care Document ---
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 Name Role Phone [employer] Information [email or web address] Unavailable Unavailable Problems Problem Status Onset Date Classification Date Reported Comments Source A41.9 SEPSIS, UNSPECIFIED ORGANISM 06/17/2018 Diagnosis 06/22/2018 SNF: [facility] M86.10 OTHER ACUTE OSTEOMYELITIS, UNSPECIFIED SITE 06/17/2018 Diagnosis 06/22/2018 SNF: [facility] J44.9 CHRONIC OBSTRUCTIVE PULMONARY DISEASE, UNSPECIFIED 06/17/2018 Diagnosis 06/22/2018 SNF: [facility] Type II diabetes mellitus uncontrolled 03/28/2018 Diagnosis 06/22/2018 SNF: [facility] E11.40 TYPE 2 DIABETES MELLITUS WITH DIABETIC NEUROPATHY, UNSPECIFIED 03/27/2018 Diagnosis 06/22/2018 SNF: [facility] L89.620 PRESSURE ULCER OF LEFT HEEL, UNSTAGEABLE 03/23/2018 Diagnosis 06/22/2018 SNF: [facility] J91.8 PLEURAL EFFUSION IN OTHER CONDITIONS CLASSIFIED ELSEWHERE 03/09/2018 Diagnosis 06/22/2018 SNF: [facility] F32.9 MAJOR DEPRESSIVE DISORDER, SINGLE EPISODE, UNSPECIFIED 03/09/2018 Diagnosis 06/22/2018 SNF: [facility] I73.9 PERIPHERAL VASCULAR DISEASE, UNSPECIFIED 03/09/2018 Diagnosis 06/22/2018 SNF: [facility] I48.91 UNSPECIFIED ATRIAL FIBRILLATION 03/09/2018 Diagnosis 06/22/2018 SNF: [facility] I50.9 HEART FAILURE, UNSPECIFIED 03/09/2018 Diagnosis 06/22/2018 SNF: [facility] S91.301A UNSPECIFIED OPEN WOUND, RIGHT FOOT, INITIAL ENCOUNTER 03/09/2018 Diagnosis 06/22/2018 SNF: [facility] Z94.0 KIDNEY TRANSPLANT STATUS 03/09/2018 Diagnosis 06/22/2018 SNF: [facility] Z91.81 HISTORY OF FALLING 03/09/2018 Diagnosis 06/22/2018 SNF: [facility] S29.9XXA UNSPECIFIED INJURY OF THORAX, INITIAL ENCOUNTER 03/09/2018 Diagnosis 06/22/2018 SNF: [facility] L03.119 CELLULITIS OF UNSPECIFIED PART OF LIMB 03/09/2018 Diagnosis 06/22/2018 SNF: [facility] N28.9 DISORDER OF KIDNEY AND URETER, UNSPECIFIED 03/09/2018 Diagnosis 06/22/2018 SNF: [facility] Atrial fibrillation Active Problem 07/09/2018 [facility] Blunt chest trauma Active Problem 07/09/2018 [facility] CHF Active Problem 07/09/2018 [facility] Chest pain Active Problem 07/09/2018 [facility] Chronic renal insufficiency Active Problem 07/09/2018 [facility] Cystitis Active Problem 07/09/2018 [facility] Diabetic foot ulcers Active Problem 07/09/2018 [facility] Dyspnea Active Problem 07/09/2018 [facility] HCAP Active Problem 07/09/2018 [facility] Hypertension Active Problem 07/09/2018 [facility] 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 [facility] Palpitations Active Problem 07/09/2018 [facility] Renal insufficiency Active Problem 07/09/2018 [facility] TIA Active Problem 07/09/2018 [facility] UTI Active Problem 07/09/2018 [facility] Renal transplant recipient Active Problem 07/09/2018 [facility] Renal transplant, status post Active Problem 07/09/2018 [facility] Medications Medication Details Route Status Patient Instructions Ordering Provider Order Date Source Amoxicillin/Potassium Clav (Amox Tr-K Clv 500-125 Mg Tab) 1 Each Tablet, Active 07/08/2018 [facility] Furosemide 40 Mg Tablet, 40 Mg Oral Daily Active 07/08/2018 [facility] Glipizide 10 Mg Tablet, 10 Mg Oral Twice A Day Active 07/08/2018 [facility] Bactroban Ointment 2 % 1 APPLICATION TOPICALLY DAILY External Active 06/21/2018 [facility] Calcitriol Capsule 0.5 MCG 1 CAP(S) BY MOUTH DAILY ON FRI/FRI/FRI Oral Active 06/19/2018 [facility] Folic Acid Tablet 1 MG Give 1 tablet by mouth one time a day for Supplement Oral Active 06/18/2018 [facility] Vitamin B12 Tablet Extended Release 1000 MCG Give 1 tablet by mouth one time a day for Supplement Oral Active 06/18/2018 [facility] Brimonidine Tartrate Solution 0.1 % 1 DROP(S) IN EACH EYE DAILY Ophthalmic Active 06/18/2018 [facility] Sodium Bicarbonate Tablet 650 MG Give 2 tablet by mouth three times a day related to KIDNEY TRANSPLANT STATUS (Z94.0) Oral Active 06/18/2018 [facility] Lasix Tablet 40 MG 1 TAB(S) BY MOUTH DAILY Oral Active 06/18/2018 [facility] guaiFENesin Syrup 100 MG/5ML Give 30 ml by mouth two times a day for Cough/Congestion [id number] Oral Active 06/18/2018 [facility] Magnesium Oxide Tablet 400 MG Give 1 tablet by mouth one time a day for Supplement Oral Active 06/18/2018 [facility] oxyCODONE HCl Tablet 5 MG Give 1 tablet by mouth every 4 hours as needed for pain DC [place] once Oxycodone arrives Oral Active 06/18/2018 [facility] Tresiba Solution 100 UNIT/ML Inject 20 unit subcutaneously one time a day for DMII Subcutaneous Active 06/18/2018 [facility] Collagenase Ointment 250 UNIT/GM Apply to Right foot topically every day shift for Wound Care External Active 06/18/2018 [facility] Protonix Tablet Delayed Release 40 MG 1 TAB(S) BY MOUTH 2 TIMES A DAY Oral Active 06/18/2018 [facility] NIFEdipine ER Tablet Extended Release 24 Hour 30 MG Give 1 tablet by mouth every 12 hours for HTN Hold for SBP<110, HR<60 Oral Active 06/18/2018 SNF: [facility] Tacrolimus Capsule 1 MG 2 CAP(S) BY MOUTH EVERY 12 HOURS (2CAPS=2MG) Oral Active 06/18/2018 [facility] Latanoprost Solution 0.005 % 1 DROP(S) IN EACH EYE AT BEDTIME Ophthalmic Active 06/18/2018 [facility] Insulin Lispro Solution 100 UNIT/ML Inject as per sliding scale: if 121 - 150=2 units; 151 - 200=4 units; 201 - 250=6 units; 251 - 300=8 units; 301 - 350=10 units; 351 - 400=12 units; 401 - 999=14 units Call MD, subcutaneously before meals and at bedtime for DMII Subcutaneous Active 06/18/2018 SNF: [facility] [place] Tablet 10-325 MG Give 1 tablet by mouth every 4 hours as needed for Pain D/C when Percocet arrives Oral Active 06/17/2018 SNF: [facility] hydrALAZINE HCl Tablet 25 MG 1 TAB(S) BY MOUTH EVERY 4 HOURS NEEDED FOR SBP >180; DBP >90 Oral Active 06/17/2018 SNF: [facility] diphenhydrAMINE HCl Tablet 25 MG Give 1 tablet by mouth as needed for Itching Bedtime Oral Active 06/17/2018 SNF: [facility] oxyCODONE-Acetaminophen Tablet 5-325 MG Give 1 tablet by mouth every 4 hours as needed for Pain Oral Active 06/17/2018 SNF: [facility] Zofran Tablet 4 MG 1 TAB(S) BY MOUTH EVERY 4 HOURS NEEDED Oral Active 06/17/2018 SNF: [facility] Benzonatate Capsule 100 MG 1 CAP(S) BY MOUTH EVERY 6 HOURS NEEDED Oral Active 06/17/2018 SNF: [facility] Glipizide 5 Mg Tablet, 10 Mg Oral Twice Daily With Meals Active 05/24/2018 [facility] Ciprofloxacin Hcl (Cipro) 250 Mg Tablet, 250 Mg Oral Every 12 Hours Active 05/23/2018 [facility] Glipizide (Glucotrol) 10 Mg Tablet, 10 Mg Oral Twice A Day Active 05/23/2018 [facility] Allopurinol 300 Mg Tablet, 300 Mg Oral Daily Active 05/03/2018 [facility] Amoxicillin/Potassium Clav (Augmentin 500-125 Tablet) 1 Each Tablet, 500 Mg Oral Twice A Day Active 05/03/2018 [facility] Santyl Ointment 250 UNIT/GM Apply to right plantar foot ulcer topically every day shift for wound healing cleanse right plantar foot with ns or wc, appply santyl with nugauze packing and cover daily External Active 04/09/2018 SNF: [facility] Santyl Ointment 250 UNIT/GM Apply to right plantar foot ulcer topically every day shift for wound healing cleanse right plantar foot with ns or wc, appply santyl with nugauze packing and cover daily External Inactive 04/09/2018 SNF: [facility] Lidocaine Patch 5 % 1 PATCH(ES) TOPICALLY DAILY - REMOVE IN 12-HOURS (REMOVE OLD PATCH BEFORE APPLYING A NEW ONE) LOCATION : LEFT SHOULDER External Active 04/07/2018 SNF: [facility] Lidocaine Patch 5 % 1 PATCH(ES) TOPICALLY DAILY - REMOVE IN 12-HOURS (REMOVE OLD PATCH BEFORE APPLYING A NEW ONE) LOCATION : LEFT SHOULDER External Active 04/07/2018 SNF: [facility] Probiotic Capsule Give 1 capsule by mouth one time a day for Supplement. for 7 Days Oral Active 04/03/2018 SNF: [facility] Probiotic Capsule Give 1 capsule by mouth one time a day for Supplement. for 7 Days Oral Active 04/03/2018 SNF: [facility] HydrOXYzine HCl Tablet 25 MG 0.5 TAB(S) BY MOUTH DAILY NEEDED (0.5T=12.5MG) Oral Active 04/03/2018 SNF: [facility] HydrOXYzine HCl Tablet 25 MG 0.5 TAB(S) BY MOUTH DAILY NEEDED (0.5T=12.5MG) Oral Active 04/03/2018 SNF: [facility] HydrOXYzine HCl Solution 25 MG/ML Inject 0.5 tablet intramuscularly every 6 hours as needed for Itching Give half tab. Intramuscular Inactive 04/02/2018 SNF: [facility] HydrOXYzine HCl Solution 25 MG/ML Inject 0.5 tablet intramuscularly every 6 hours as needed for Itching Give half tab. Intramuscular Inactive 04/02/2018 SNF: [facility] Ondansetron HCl Tablet 4 MG 1 TAB(S) BY MOUTH EVERY 6 HOURS NEEDED FOR N/V Oral Active 04/02/2018 SNF: [facility] Ondansetron HCl Tablet 4 MG 1 TAB(S) BY MOUTH EVERY 6 HOURS NEEDED FOR N/V Oral Active 04/01/2018 SNF: [facility] OxyCODONE HCl Tablet Abuse-Deterrent 7.5 MG 0.5 TAB(S) BY MOUTH EVERY 4 HOURS NEEDED (0.5TAB=2.5MG) Oral Active 03/31/2018 SNF: [facility] OxyCODONE HCl Tablet Abuse-Deterrent 7.5 MG 0.5 TAB(S) BY MOUTH EVERY 4 HOURS NEEDED (0.5TAB=2.5MG) Oral Active 03/31/2018 SNF: [facility] Coumadin Tablet 2 MG 1 TAB(S) BY MOUTH DAILY ON FRI/FRI/FRI RELATED TO HEART FAILURE, UNSPECIFIED (I50.9) Oral Active 03/30/2018 SNF: [facility] Coumadin Tablet 2 MG 1 TAB(S) BY MOUTH DAILY ON FRI/FRI/FRI RELATED TO HEART FAILURE, UNSPECIFIED (I50.9) Oral Active 03/30/2018 SNF: [facility] Roxicodone Tablet 5 MG Give 1 tablet by mouth every 4 hours as needed for Pain Oral Inactive 03/30/2018 SNF: [facility] Roxicodone Tablet 5 MG Give 1 tablet by mouth every 4 hours as needed for Pain Oral Inactive 03/30/2018 SNF: [facility] Santyl Ointment 250 UNIT/GM Apply to Right planter foot topically every day shift for Wound Healing External Active 03/29/2018 SNF: [facility] Santyl Ointment 250 UNIT/GM Apply to Right planter foot topically every day shift for Wound Healing External Active 03/29/2018 SNF: [facility] Levemir FlexPen Solution Pen-injector 100 UNIT/ML Inject 10 unit subcutaneously at bedtime for ANTIDIABETICS Subcutaneous Active 03/29/2018 SNF: [facility] Levemir FlexPen Solution Pen-injector 100 UNIT/ML Inject 10 unit subcutaneously at bedtime for ANTIDIABETICS Subcutaneous Active 03/29/2018 SNF: [facility] Coumadin Tablet 1 MG 1 TAB(S) BY MOUTH EVERY EVENING EVERY TUE, SAGAR, SAT, SUN RELATED TO UNSPECIFIED ATRIAL FIBRILLATION (I48.91) Oral Active 03/28/2018 SNF: [facility] Coumadin Tablet 1 MG 1 TAB(S) BY MOUTH EVERY EVENING EVERY TUE, SAGAR, SAT, SUN RELATED TO UNSPECIFIED ATRIAL FIBRILLATION (I48.91) Oral Active 03/28/2018 SNF: [facility] HumaLOG Solution 100 UNIT/ML Inject 5 unit subcutaneously before meals related to TYPE 2 DIABETES MELLITUS WITH HYPERGLYCEMIA (E11.65) AND Inject as per sliding scale: if 150 - 200=3; 201 - 250=6; 251 - 300=9; 301 - 350=12; 351+ Call MD, subcutaneously before meals and at bedtime related to TYPE 2 DIABETES MELLITUS WITH HYPERGLYCEMIA (E11.65) Subcutaneous Inactive 03/28/2018 SNF: [facility] HumuLIN R Solution 100 UNIT/ML Inject 5 unit subcutaneously before meals related to TYPE 2 DIABETES MELLITUS WITH HYPERGLYCEMIA (E11.65) AND Inject as per sliding scale: if 150 - 200=3; 201 - 250=6; 251 - 300=9; 301 - 350=12; 351+ Call MD, subcutaneously before meals and at bedtime related to TYPE 2 DIABETES MELLITUS WITH HYPERGLYCEMIA (E11.65) Injection Active 03/28/2018 SNF: [facility] HumaLOG Solution 100 UNIT/ML Inject 5 unit subcutaneously before meals related to TYPE 2 DIABETES MELLITUS WITH HYPERGLYCEMIA (E11.65) AND Inject as per sliding scale: if 150 - 200=3; 201 - 250=6; 251 - 300=9; 301 - 350=12; 351+ Call MD, subcutaneously before meals and at bedtime related to TYPE 2 DIABETES MELLITUS WITH HYPERGLYCEMIA (E11.65) Subcutaneous Inactive 03/28/2018 SNF: [facility] HumuLIN R Solution 100 UNIT/ML Inject 5 unit subcutaneously before meals related to TYPE 2 DIABETES MELLITUS WITH HYPERGLYCEMIA (E11.65) AND Inject as per sliding scale: if 150 - 200=3; 201 - 250=6; 251 - 300=9; 301 - 350=12; 351+ Call MD, subcutaneously before meals and at bedtime related to TYPE 2 DIABETES MELLITUS WITH HYPERGLYCEMIA (E11.65) Injection Active 03/28/2018 SNF: [facility] Ampicillin Capsule 500 MG 1 CAP(S) BY MOUTH EVERY 8 HOURS FOR 10 DAYS Oral Active 03/28/2018 SNF: [facility] Aztreonam in Dextrose Solution 1 GM/50ML Use 0.5 gram intravenously every 12 hours related to CELLULITIS OF UNSPECIFIED PART OF LIMB (L03.119) for 10 Days @ 100 mL/H Intravenous Active 03/28/2018 SNF: [facility] Prograf Capsule 1 MG 2 CAP(S) BY MOUTH 2 TIMES A DAY (2CAPS=2MG) RELATED TO KIDNEY TRANSPLANT STATUS (Z94.0) Oral Active 03/28/2018 SNF: [facility] Calcitriol Capsule 0.5 MCG 1 CAP(S) BY MOUTH DAILY ON MON/WED/FRI Oral Active 03/28/2018 SNF: [facility] Ferrous Sulfate Tablet 325 (65 Fe) MG Give 1 tablet by mouth one time a day for supplementation Oral Active 03/28/2018 SNF: [facility] Furosemide Tablet 40 MG 1 TAB(S) BY MOUTH EVERY 12 HOURS Oral Active 03/28/2018 SNF: [facility] PredniSONE Tablet 5 MG Give 1 tablet by mouth one time a day for CORTICOSTEROIDS Oral Active 03/28/2018 SNF: [facility] Loratadine Tablet 10 MG Give 1 tablet by mouth one time a day for Allergy Symptoms Oral Active 03/28/2018 SNF: [facility] Potassium Tablet Give 40 mEq by mouth one time a day for supplement Oral Active 03/28/2018 SNF: [facility] HydrALAZINE HCl Tablet 50 MG Give 1 tablet by mouth three times a day related to HEART FAILURE, UNSPECIFIED (I50.9) Hold for SBP <130 Oral Active 03/28/2018 SNF: [facility] Ampicillin Capsule 500 MG 1 CAP(S) BY MOUTH EVERY 8 HOURS FOR 10 DAYS Oral Active 03/28/2018 SNF: [facility] Aztreonam in Dextrose Solution 1 GM/50ML Use 0.5 gram intravenously every 12 hours related to CELLULITIS OF UNSPECIFIED PART OF LIMB (L03.119) for 10 Days @ 100 mL/H Intravenous Active 03/28/2018 SNF: [facility] Calcitriol Capsule 0.5 MCG 1 CAP(S) BY MOUTH DAILY ON FRI/FRI/FRI Oral Active 03/28/2018 SNF: [facility] Prograf Capsule 1 MG 2 CAP(S) BY MOUTH 2 TIMES A DAY (2CAPS=2MG) RELATED TO KIDNEY TRANSPLANT STATUS (Z94.0) Oral Active 03/28/2018 SNF: [facility] Ferrous Sulfate Tablet 325 (65 Fe) MG Give 1 tablet by mouth one time a day for supplementation Oral Active 03/28/2018 SNF: [facility] Furosemide Tablet 40 MG 1 TAB(S) BY MOUTH EVERY 12 HOURS Oral Active 03/28/2018 SNF: [facility] PredniSONE Tablet 5 MG Give 1 tablet by mouth one time a day for CORTICOSTEROIDS Oral Active 03/28/2018 SNF: [facility] Loratadine Tablet 10 MG Give 1 tablet by mouth one time a day for Allergy Symptoms Oral Active 03/28/2018 SNF: [facility] Potassium Tablet Give 40 mEq by mouth one time a day for supplement Oral Active 03/28/2018 SNF: [facility] HydrALAZINE HCl Tablet 50 MG Give 1 tablet by mouth three times a day related to HEART FAILURE, UNSPECIFIED (I50.9) Hold for SBP <130 Oral Active 03/28/2018 SNF: [facility] Tylenol Tablet 325 MG Give 2 tablet by mouth one time only for PAIN for 1 Day Per Randi Lewis Oncall Oral Active 03/28/2018 SNF: [facility] Tylenol Tablet 325 MG Give 2 tablet by mouth one time only for PAIN for 1 Day Per Randi Lewis Oncall Oral Active 03/28/2018 SNF: [facility] Oxycodone-Acetaminophen Tablet 5-325 MG Give 1 tablet by mouth every 4 hours as needed for PAIN *For Percocet 10-325:Give 1 Percocet 5- 325+ Oxycodone 5mg* Oral Active 03/28/2018 SNF: [facility] HydrOXYzine HCl Tablet 25 MG 0.5 TAB(S) BY MOUTH DAILY NEEDED (0.5T=12.5MG) Oral Active 03/28/2018 SNF: [facility] Tuberculin PPD Solution Inject 0.1 ml intradermally one time only for Prophylaxis for 1 Day Adm within first 24 hours of admission. Repeat yearly. Intradermal Active 03/28/2018 SNF: [facility] Oxycodone-Acetaminophen Tablet 5-325 MG Give 1 tablet by mouth every 4 hours as needed for PAIN *For Percocet 10-325:Give 1 Percocet 5- 325+ Oxycodone 5mg* Oral Active 03/28/2018 SNF: [facility] HydrOXYzine HCl Tablet 25 MG 0.5 TAB(S) BY MOUTH DAILY NEEDED (0.5T=12.5MG) Oral Active 03/28/2018 SNF: [facility] Tuberculin PPD Solution Inject 0.1 ml intradermally one time only for Prophylaxis for 1 Day Adm within first 24 hours of admission. Repeat yearly. Intradermal Active 03/28/2018 SNF: [facility] Roxicodone Tablet 5 MG Give 1 tablet by mouth every 4 hours as needed for Pain Give with Percocet 5-325mg to equal Percocet 10-325mg Oral Active 03/27/2018 SNF: [facility] Roxicodone Tablet 5 MG Give 1 tablet by mouth every 4 hours as needed for Pain Give with Percocet 5-325mg to equal Percocet 10-325mg Oral Active 03/27/2018 SNF: [facility] Alprazolam 0.5 Mg Tablet, 0.5 Mg Oral Daily Active 03/20/2018 [facility] Gabapentin 300 Mg Capsule, 300 Mg Oral Twice A Day Active 03/20/2018 [facility] Hydralazine Hcl 25 Mg Tab, 50 Mg Oral Every 6 Hours as needed for >Dx=988 Active 03/20/2018 [facility] Insulin Lisp Protam/Lisp Human (Humalog Mix 75-25 Vial) 100 Units/Ml Ml, Subcutaneously Before Meals And At Bedtime Active 03/20/2018 [facility] Metoclopramide Hcl (Reglan) 5 Mg Tablet, 5 Mg Oral Before Meals And At Bedtime Active 03/20/2018 [facility] Metoprolol Succinate 25 Mg Tab.er.24h, 25 Mg Oral Twice A Day as needed for High Blood Pressure Active 03/20/2018 [facility] Tacrolimus 1 Mg Capsule, 1 Mg Oral Twice A Day Active 03/20/2018 [facility] Torsemide 20 Mg Tablet, Active 03/20/2018 [facility] Warfarin Sodium 2 Mg Tablet, 2 Mg Oral Daily Active 03/20/2018 [facility] Tuberculin PPD Solution Inject 0.1 ml intradermally one time only for Prophylaxis for 1 Day Adm within first 24 hours of admission. Repeat yearly. Intradermal Active 03/14/2018 SNF: [facility] Hydralazine Hcl 25 Mg Tab, 100 Mg Oral Three Times A Day Active 03/14/2018 [facility] Hydralazine Hcl 25 Mg Tab, 50 Mg Oral Three Times A Day Active [facility] 03/13/2018 [facility] Insulin Detemir 100 Unit/Ml Pen, 13 Unit Sub-Q Bedtime Active [facility] 03/13/2018 [facility] Metoprolol Succinate (Toprol Xl) 25 Mg Tab.er.24h, 25 Mg Oral Twice A Day Active [facility] 03/13/2018 [facility] Sodium Bicarbonate 650 Mg Tablet, 1300 Mg Oral Twice A Day Active [facility] 03/13/2018 [facility] Amiodarone Hcl 200 Mg Tablet, 200 Mg Oral Daily Active 01/05/2018 [facility] Metoprolol Tartrate 50 Mg Tablet, 50 Mg Oral Twice A Day Active 02/23/2017 [facility] Pioglitazone Hcl (Actos*) 15 Mg Tablet, 30 Mg Oral Daily Active 01/19/2017 [facility] Warfarin Sodium 1 Mg Tablet, 1 Mg Oral M,F Active 01/19/2017 [facility] Insulin Lisp Protam/Lisp Human (Humalog Mix 75-25 Vial) 100 Units/Ml Ml, 60 Unit Subcutaneously Daily At 1700 Active 01/14/2017 [facility] Labetalol Hcl 200 Mg Tablet, 200 Mg Oral Daily Active 01/14/2017 [facility] Cholecalciferol (Vitamin D3) (Vitamin D) 1,000 Unit Tablet, 2000 Unit Oral Daily Active 11/05/2016 [facility] Brimonidine Tartrate (Combigan Eye Drops) 5 Ml Drpette Daily Active [facility] Bumetanide 1 Mg Tablet Three Times A Day Active [facility] Calcitriol 0.25 Mcg Capsule .// Active TAKE ON MONDAYS, WEDNESDAYS, AND FRIDAYS [facility] Diphenhydramine Hcl (Benadryl) 25 Mg Capsule Bedtime as needed for Sleep Active [facility] Fe Fumarate/Fa/Mv, Min Comb#15 (Hemocyte Plus Capsule) 1 Each Capsule Twice A Day Active [facility] Ferrous Sulfate (Feosol) 325 Mg Tablet Daily Active [facility] Hydralazine Hcl 25 Mg Tab Three Times A Day Active [facility] Latanoprost 2.5 Ml Drops Bedtime Active [facility] Linezolid (Zyvox) 600 Mg Tablet Every 12 Hours Active [facility] Magnesium Oxide 400 Mg Tablet Daily Active [facility] Metoprolol Tartrate 50 Mg Tablet Twice A Day Active [facility] Oxycodone Hcl/Acetaminophen (Oxycodone-Acetaminophen 5-325) 1 Each Tablet Every 4 Hours as needed for Pain Active 1-2 tablets [facility] Potassium Chloride 20 Meq Tab.er.prt Three Times Daily With Meals Active [facility] Prednisone 5 Mg Tablet Daily Active [facility] Santyl Bedtime Active [facility] Tacrolimus (Prograf) 1 Mg Cap Twice A Day Active [facility] Tramadol Hcl (Ultram) 50 Mg Tablet Every 6 Hours Active [facility] Tresiba Daily Active [facility] Warfarin Sodium 1 Mg Tablet Daily Active [facility] Zinc Acetate/Meadowsweet/[place] (Amerigel Wound Dressing Gel) 28.3 Gm Gel..gram. Daily Active [facility] Allergies, Adverse Reactions, Alerts No Known Medication Allergies Immunizations Immunization Date Given Site Status Last Updated Comments Source tuberculin skin test; purified protein derivative solution, intradermal 03/28/2018 completed Sidra Caldwell SNF: [facility] tuberculin skin test; purified protein derivative solution, intradermal 03/28/2018 completed Sidra Caldwell SNF: [facility] pneumococcal polysaccharide vaccine, 23 valent 03/28/2018 Not Given SNF: [facility] Influenza, seasonal, injectable 01/08/2018 completed SNF: [facility] Results Order Name Results Value Reference Range Date Interpretation Comments Source Capillary blood glucose measurement by glucometer (mass/volume) 204 70 - 120 07/08/2018 [facility] Blood leukocytes automated count (number/volume) 8.76 4.8 - 10.8 07/07/2018 [facility] Blood erythrocytes automated count (number/volume) 3.41 4.3 - 5.7 07/07/2018 [facility] [facility] Blood hemoglobin measurement (moles/volume) 9.7 14.0 - 18.0 07/07/2018 [facility] Automated blood hematocrit (volume fraction) 30.7 38.2 - 49.6 07/07/2018 [facility] Automated erythrocyte mean corpuscular volume 90.0 81 - 99 07/07/2018 [facility] Automated erythrocyte mean corpuscular hemoglobin (mass per erythrocyte) 28.4 28 - 32 07/07/2018 [facility] Automated erythrocyte mean corpuscular hemoglobin concentration measurement (mass/volume) 31.6 31 - 35 07/07/2018 [facility] RDW BldCo-Rto 18.1 11.7 - 14.4 07/07/2018 [facility] Automated blood platelet count (count/volume) 269 140 - 360 07/07/2018 [facility] Automated blood segmented neutrophil count as percentage of total leukocytes 79.5 38.7 - 80.0 07/07/2018 [facility] Automated blood lymphocyte count as percentage ot total leukocytes 11.3 18.0 - 39.1 07/07/2018 [facility] Automated blood monocyte count as percentage of total leukocytes 7.4 4.4 - 11.3 07/07/2018 [facility] Automated blood eosinophil count as percentage of total leukocytes 0.5 0.0 - 6.0 07/07/2018 [facility] Automated blood basophil count as percentage of total leukocytes 0.2 0.0 - 1.0 07/07/2018 [facility] IM GRANULOCYTES % 1.1 0.0 - 1.0 07/07/2018 [facility] Automated blood neutrophil count 7.0 2.1 - 6.9 07/07/2018 [facility] Blood lymphocytes count (number/volume) 1.0 1.0 - 3.2 07/07/2018 [facility] Blood monocytes automated count (number/volume) 0.7 0.2 - 0.8 07/07/2018 [facility] Automated blood eosinophil count 0.0 0.0 - 0.4 07/07/2018 [facility] Automated blood basophil count (count/volume) 0.0 0.0 - 0.1 07/07/2018 [facility] Absolute Immature Granulocyte (auto 0.10 0 - 0.1 07/07/2018 [facility] Serum or plasma sodium measurement (moles/volume) 136 136 - 145 07/07/2018 [facility] Serum or plasma potassium measurement (moles/volume) 3.2 3.5 - 5.1 07/07/2018 [facility] Serum or plasma chloride measurement (moles/volume) 95 98 - 107 07/07/2018 [facility] Serum or plasma carbon dioxide, total measurement (moles/volume) 31 22 - 29 07/07/2018 [facility] Serum or plasma anion gap 13.2 8 - 16 07/07/2018 [facility] Serum or plasma urea nitrogen measurement (mass/volume) 63 7 - 26 07/07/2018 [facility] Serum or plasma creatinine measurement (mass/volume) 2.13 0.72 - 1.25 07/07/2018 [facility] Serum or plasma urea nitrogen/creatinine mass ratio 30 6 - 25 07/07/2018 [facility] Estimated glomerular filtration rate (GFR) determination 32 60 07/07/2018 [facility] Glucose measurement 76 74 - 118 07/07/2018 [facility] Serum or plasma calcium measurement (mass/volume) 8.7 8.4 - 10.2 07/07/2018 [facility] Prothrombin time (PT) in platelet poor plasma by coagulation assay 33.5 11.9 - 14.5 07/05/2018 [facility] INR in Platelet poor plasma by Coagulation assay 3.20 07/05/2018 [facility] Serum or plasma total bilirubin measurement (mass/volume) 0.4 0.2 - 1.2 07/05/2018 [facility] Aspartate Amino Transf (AST/SGOT) 25 5 - 34 07/05/2018 [facility] Serum or plasma alanine aminotransferase measurement (enzymatic activity/volume) 18 0 - 55 07/05/2018 [facility] Serum or plasma protein measurement (mass/volume) 5.3 6.5 - 8.1 07/05/2018 [facility] Serum or plasma albumin measurement (mass/volume) 1.5 3.5 - 5.0 07/05/2018 [facility] Plasma globulin measurement (mass/volume) 3.8 2.3 - 3.5 07/05/2018 [facility] Serum or plasma albumin/globulin mass ratio 0.4 0.8 - 2.0 07/05/2018 [facility] Serum or plasma alkaline phosphatase measurement (enzymatic activity/volume) 140 40 - 150 07/05/2018 [facility] Activated partial thromboplastin time (aPTT) in platelet poor plasma bycoagulation assay 43.4 23.8 - 35.5 06/29/2018 [facility] Differential Total Cells Counted 100 06/29/2018 [facility] Manual blood neutrophils/100 leukocytes 85 40 - 74 06/29/2018 [facility] Manual blood lymphocytes/100 leukocytes 8 19 - 48 06/29/2018 [facility] Manual blood monocytes/100 leukocytes 7 3.4 - 9.0 06/29/2018 [facility] Blood platelets count by estimate (number/volume) ADEQUATE 06/29/2018 [facility] Platelet morphology NORMAL 06/29/2018 [facility] Blood anisocytosis detection by light microscopy SLIGHT 06/29/2018 [facility] RBC morphology NORMAL 06/29/2018 [facility] Specimen source identification of body fluid PLEURAL 06/25/2018 [facility] Evaluation of color of body fluid YELLOW 06/25/2018 [facility] Determination of appearance of body fluid SL.CLOUDY 06/25/2018 [facility] Manual body fluid leukocytes count (number/volume) 158 06/25/2018 [facility] Manual body fluid erythrocytes count (number/volume) 42 06/25/2018 [facility] Manual body fluid neutrophils/100 leukocytes 78 06/25/2018 [facility] Body fluid lymphocyte count 2 06/25/2018 [facility] Body fluid monocyte count 3 06/25/2018 [facility] Body fluid other cells manual count 17 06/25/2018 [facility] Total cell count 100 06/25/2018 [facility] Body fluid protein measurement (mass/volume) 0.9 06/25/2018 [facility] Body fluid lactate dehydrogenase measurement (enzymatic activity/volume) 72 06/25/2018 [facility] Serum or plasma iron measurement (mass/volume) 13 65 - 175 06/24/2018 [facility] Serum or plasma transferrin measurement (mass/volume) < 70 174 - 364 06/24/2018 [facility] Serum or plasma ferritin measurement (mass/volume) 1897.52 21.81 - 274.66 06/24/2018 [facility] BNP Bld-mCnc 1388.0 0 - 100 06/24/2018 [facility] Blood culture NO GROWTH AFTER 5 DAYS, FINAL REPORT 06/23/2018 [facility] Stool gastrointestinal hemoglobin detection NEGATIVE NEGATIVE 06/23/2018 [facility] Urine color determination YELLOW YELLOW 06/22/2018 [facility] Urine clarity HAZY CLEAR 06/22/2018 [facility] Specific gravity of Urine by Test strip 1.015 1.010 - 1.025 06/22/2018 [facility] Urine pH measurement by automated test strip 6 5 - 7 06/22/2018 [facility] Urine leukocyte esterase detection by dipstick 1+ NEGATIVE 06/22/2018 [facility] Urine nitrite detection NEGATIVE NEGATIVE 06/22/2018 [facility] Urine protein measurement by test strip (mass/volume) NEGATIVE NEGATIVE 06/22/2018 [facility] Urine glucose detection NEGATIVE NEGATIVE 06/22/2018 [facility] Urine ketones detection by automated test strip NEGATIVE NEGATIVE 06/22/2018 [facility] Urine urobilinogen measurement by test strip (mass/volume) 0.2 0.2 - 1 06/22/2018 [facility] Urine total bilirubin measurement (mass/volume) NEGATIVE NEGATIVE 06/22/2018 [facility] Urine erythrocytes detection TRACE NEGATIVE 06/22/2018 [facility] Automated urine sediment leukocyte count by microscopy (number/high power field) >50 0 - 5 06/22/2018 [facility] Erythrocytes detection in urine sediment by light microscopy 11-20 0 - 5 06/22/2018 [facility] Bacteria detection in urine sediment by light microscopy MANY NONE 06/22/2018 [facility] Epithelial cells detection in urine sediment by light microscopy MANY NONE 06/22/2018 [facility] Yeast detection in urine sediment by light microscopy MANY NONE 06/22/2018 [facility] Serum or plasma creatine kinase measurement (enzymatic activity/volume) 9 30 - 200 06/22/2018 [facility] Serum or plasma creatine kinase MB measurement (mass/volume) 0.50 0 - 5.0 06/22/2018 [facility] Troponin I measurement by highly sensitive enzyme immunoassay 0.052 0 - 0.300 06/22/2018 [facility] Blood sugar Blood sugar 162 06/22/2018 SNF: [facility] Blood sugar Blood sugar 183 06/22/2018 SNF: [facility] Blood sugar Blood sugar 183 06/22/2018 SNF: [facility] Blood sugar Blood sugar 188 06/22/2018 SNF: [facility] Blood sugar Blood sugar 178 06/21/2018 SNF: [facility] Blood sugar Blood sugar 162 06/21/2018 SNF: [facility] Blood sugar Blood sugar 165 06/21/2018 SNF: [facility] Blood sugar Blood sugar 165 06/21/2018 SN[facility]: [facility] Blood sugar Blood sugar 200 06/21/2018 SN[facility]: [facility] Blood sugar Blood sugar 146 06/20/2018 SN[facility]: [facility] Blood sugar Blood sugar 146 06/20/2018 SN[facility]: [facility] Blood sugar Blood sugar 164 06/20/2018 SNF: [facility] Blood sugar Blood sugar 188 06/20/2018 SNF: [facility] Blood sugar Blood sugar 213 06/19/2018 SNF: [facility] Blood sugar Blood sugar 244 06/19/2018 SN[facility]: [facility] Blood sugar Blood sugar 246 06/19/2018 SN[facility]: [facility] Blood sugar Blood sugar 246 06/19/2018 SN[facility]: [facility] Blood sugar Blood sugar 287 06/19/2018 SN[facility]: [facility] Blood sugar Blood sugar 311 06/18/2018 SN[facility]: [facility] Blood sugar Blood sugar 373 06/18/2018 SNF: [facility] Procalcitonin (PCT) level 0.35 0.00 - 0.08 06/17/2018 [facility] Serum or plasma cortisol measurement on morning peak specimen (mass/volume) 19.7 6.2 - 19.4 06/17/2018 [facility] Manual blood band neutrophils form/100 leukocytes 3 06/14/2018 [facility] Serum or plasma magnesium measurement (mass/volume) 1.5 1.3 - 2.1 06/13/2018 [facility] Manual blood eosinophil count as percentage of total leukocytes 1 0 - 7 06/12/2018 [facility] Manual blood metamyelocytes/100 leukocytes 4 0 - 0 06/12/2018 [facility] Blood toxic granules detection by light microscopy MODERATE 06/12/2018 [facility] Blood dohle body detection by light microscopy FEW 06/12/2018 [facility] Albumin (PEP) 2.8 2.9 - 4.4 06/12/2018 [facility] Serum or plasma alpha 1 globulin measurement by electrophoresis (mass/volume) 0.2 0.0 - 0.4 06/12/2018 [facility] Serum or plasma alpha 2 globulin measurement by electrophoresis (mass/volume) 0.7 0.4 - 1.0 06/12/2018 [facility] Serum or plasma beta globulin measurement by electrophoresis (mass/volume) 0.5 0.7 - 1.3 06/12/2018 [facility] Serum or plasma gamma globulin measurement by electrophoresis (mass/volume) 0.7 0.4 - 1.8 06/12/2018 [facility] Serum or plasma protein measurement (mass/volume) 4.8 6.0 - 8.5 06/12/2018 [facility] Serum globulin measurement by calculation (mass/volume) 2.0 2.2 - 3.9 06/12/2018 [facility] Serum immunoglobulin kappa light chains measurement (mass/volume) 34.2 3.3 - 19.4 06/12/2018 [facility] Serum or plasma immunoglobulin free lambda light chains measurement (mass/volume) 21.3 5.7 - 26.3 06/12/2018 [facility] Serum immunoglobulin kappa light chains/immunoglobulin lambda light chains mass ratio 1.61 0.26 - 1.65 06/12/2018 [facility] Serum or plasma protein monoclonal measurement by electrophoresis (mass/volume) Not Observed Not Observed 06/12/2018 [facility] Serum or plasma albumin/globulin mass ratio 1.4 0.7 - 1.7 06/12/2018 [facility] Protein Electrophoresis Note Comment . 06/12/2018 [facility] Manual blood myelocytes/100 leukocytes 4 0 - 0 06/11/2018 [facility] Blood promyelocytes/100 leukocytes 1 0 - 0 06/11/2018 [facility] Blood lymphocytes variant count (number/volume) 1 06/11/2018 [facility] Blood hypochromia detection by light microscopy SLIGHT 06/11/2018 [facility] Serum or plasma iron binding capacity measurement (mass/volume) 112 261 - 478 06/10/2018 [facility] Serum or plasma iron saturation measurement (mass fraction) 74 15 - 50 06/10/2018 [facility] Blood poikilocytosis detection by light microscopy SLIGHT 06/09/2018 [facility] Lactic Acid Level 17.6 4.5 - 19.8 06/08/2018 [facility] Blood microcytes detection by light microscopy SLIGHT 06/08/2018 [facility] Blood ovalocytes detection by light microscopy FEW 06/08/2018 [facility] Serum or plasma homocysteine measurement (moles/volume) 9.6 0.0 - 15.0 06/07/2018 [facility] Serum or plasma methylmalonate measurement (moles/volume) 450 06/07/2018 [facility] Fibrin D-dimer DDU measurement in platelet poor plasma (mass/volume) 383 0 - 400 06/07/2018 [facility] Fibrinogen measurement in platelet poor plasma by coagulation assay (mass/volume) 215 204 - 462 06/07/2018 [facility] Fibrin+fibrinogen fragments measurement (units/volume) in platelet poor plasma by latex agglutination <5 <5 06/07/2018 [facility] Clostridium difficile A and B toxin assay NEGATIVE NEGATIVE 06/06/2018 [facility] Phosphorus measurement 3.1 2.3 - 4.7 06/06/2018 [facility] Serum or plasma lactate dehydrogenase measurement (enzymatic activity/volume) 200 125 - 220 06/06/2018 [facility] Elliptocyte detection SLIGHT 06/06/2018 [facility] Blood cobalamin (vitamin B12) measurement (mass/volume) 361 213 - 816 06/05/2018 [facility] Serum or plasma folate measurement (mass/volume) 5.1 7.0 - 15.4 06/05/2018 [facility] Serum or plasma thyrotropin measurement by detection limit <=0.005 miu/l (units/volume) 1.760 0.350 - 4.940 06/05/2018 [facility] Urine Legionella pneumophila 1 antigen detection by immunoassay Negative Negative 06/04/2018 [facility] Arterial blood pH measurement 7.37 7.31 - 7.41 06/04/2018 [facility] pCO2 BldA 28 41 - 51 06/04/2018 [facility] pCO2 BldA 67 80 - 105 06/04/2018 [facility] Arterial blood bicarbonate measurement (moles/volume) 16 23 - 28 06/04/2018 [facility] Arterial blood base excess by calculation -9.0 -2 - 3 - 2 06/04/2018 [facility] Arterial blood oxygen saturation measurement 93.0 95 - 98 06/04/2018 [facility] FiO2 21 06/04/2018 [facility] Transitional cells detection in urine sediment by light microscopy MANY NONE 06/02/2018 [facility] Influenza virus A and B antigen identification by immunofluorescence NEGATIVE NEGATIVE 06/02/2018 [facility] Ammonia Ser-mCnc 32 31 - 123 05/23/2018 [facility] Blood sugar Blood sugar 116 04/08/2018 SNF: [facility] Blood sugar Blood sugar 116 04/08/2018 SNF: [facility] Blood sugar Blood sugar 116 04/08/2018 SNF: [facility] Blood sugar Blood sugar 116 04/08/2018 SN[facility]: [facility] Blood sugar Blood sugar 302 04/08/2018 SN[facility]: [facility] Blood sugar Blood sugar 302 04/08/2018 [facility]: [facility] Blood sugar Blood sugar 337 04/07/2018 SN[facility]: [facility] Blood sugar Blood sugar 127 04/07/2018 SN[facility]: [facility] Blood sugar Blood sugar 337 04/07/2018 SN[facility]: [facility] Blood sugar Blood sugar 127 04/07/2018 SN[facility]: [facility] Blood sugar Blood sugar 127 04/07/2018 SN[facility]: [facility] Blood sugar Blood sugar 127 04/07/2018 SN[facility]: [facility] Blood sugar Blood sugar 115 04/07/2018 SN[facility]: [facility] Blood sugar Blood sugar 115 04/07/2018 [facility]: [facility] Blood sugar Blood sugar 116 04/07/2018 [facility]: [facility] Blood sugar Blood sugar 116 04/07/2018 SN[facility]: [facility] Blood sugar Blood sugar 253 04/07/2018 SN[facility]: [facility] Blood sugar Blood sugar 253 04/07/2018 SN[facility]: [facility] Blood sugar Blood sugar 253 04/07/2018 SN[facility]: [facility] Blood sugar Blood sugar 253 04/07/2018 SN[facility]: [facility] Blood sugar Blood sugar 244 04/06/2018 SN[facility]: [facility] Blood sugar Blood sugar 244 04/06/2018 SN[facility]: [facility] Blood sugar Blood sugar 244 04/06/2018 SN[facility]: [facility] Blood sugar Blood sugar 244 04/06/2018 SN[facility]: [facility] Blood sugar Blood sugar 185 04/06/2018 SN[facility]: [facility] Blood sugar Blood sugar 185 04/06/2018 SN[facility]: [facility] Blood sugar Blood sugar 185 04/06/2018 SN[facility]: [facility] Blood sugar Blood sugar 185 04/06/2018 SN[facility]: [facility] Blood sugar Blood sugar 144 04/06/2018 [facility]: [facility] Blood sugar Blood sugar 144 04/06/2018 SN[facility]: [facility] Blood sugar Blood sugar 144 04/06/2018 SN[facility]: [facility] Blood sugar Blood sugar 144 04/06/2018 SN[facility]: [facility] Blood sugar Blood sugar 141 04/06/2018 SN[facility]: [facility] Blood sugar Blood sugar 141 04/06/2018 SN[facility]: [facility] Blood sugar Blood sugar 141 04/06/2018 SN[facility]: [facility] Blood sugar Blood sugar 141 04/06/2018 SN[facility]: [facility] Blood sugar Blood sugar 237 04/05/2018 SNF: [facility] Blood sugar Blood sugar 237 04/05/2018 SN[facility]: [facility] Blood sugar Blood sugar 237 04/05/2018 SN[facility]: [facility] Blood sugar Blood sugar 237 04/05/2018 SN[facility]: [facility] Blood sugar Blood sugar 212 04/05/2018 SN[facility]: [facility] Blood sugar Blood sugar 212 04/05/2018 SN[facility]: [facility] Blood sugar Blood sugar 143 04/05/2018 SN[facility]: [facility] Blood sugar Blood sugar 143 04/05/2018 SN[facility]: [facility] Blood sugar Blood sugar 242 04/05/2018 SN[facility]: [facility] Blood sugar Blood sugar 242 04/05/2018 SN[facility]: [facility] Blood sugar Blood sugar 242 04/05/2018 SN[facility]: [facility] Blood sugar Blood sugar 242 04/05/2018 SN[facility]: [facility] Blood sugar Blood sugar 169 04/04/2018 SN[facility]: [facility] Blood sugar Blood sugar 169 04/04/2018 SN[facility]: [facility] Blood sugar Blood sugar 169 04/04/2018 SNF: [facility] Blood sugar Blood sugar 169 04/04/2018 SNF: [facility] Blood sugar Blood sugar 120 04/04/2018 SN[facility]: [facility] Blood sugar Blood sugar 120 04/04/2018 SN[facility]: [facility] Blood sugar Blood sugar 167 04/04/2018 SN[facility]: [facility] Blood sugar Blood sugar 167 04/04/2018 SN[facility]: [facility] Blood sugar Blood sugar 167 04/04/2018 SN[facility]: [facility] Blood sugar Blood sugar 167 04/04/2018 SN[facility]: [facility] Blood sugar Blood sugar 224 04/04/2018 SN[facility]: [facility] Blood sugar Blood sugar 224 04/04/2018 SN[facility]: [facility] Blood sugar Blood sugar 224 04/04/2018 SNF: [facility] Blood sugar Blood sugar 224 04/04/2018 SN[facility]: [facility] Blood sugar Blood sugar 152 04/04/2018 SN[facility]: [facility] Blood sugar Blood sugar 152 04/04/2018 SN[facility]: [facility] Blood sugar Blood sugar 152 04/03/2018 SNF: [facility] Blood sugar Blood sugar 152 04/03/2018 SNF: [facility] Blood sugar Blood sugar 240 04/03/2018 SNF: [facility] Blood sugar Blood sugar 240 04/03/2018 SNF: [facility] Blood sugar Blood sugar 240 04/03/2018 SNF: [facility] Blood sugar Blood sugar 240 04/03/2018 SNF: [facility] Blood sugar Blood sugar 245 04/03/2018 SN[facility]: [facility] Blood sugar Blood sugar 245 04/03/2018 SN[facility]: [facility] Blood sugar Blood sugar 240 04/03/2018 SN[facility]: [facility] Blood sugar Blood sugar 240 04/03/2018 SN[facility]: [facility] Blood sugar Blood sugar 240 04/03/2018 SN[facility]: [facility] Blood sugar Blood sugar 240 04/03/2018 SN[facility]: [facility] Blood sugar Blood sugar 154 04/02/2018 SNF: [facility] Blood sugar Blood sugar 154 04/02/2018 SNF: [facility] Blood sugar Blood sugar 154 04/02/2018 SN[facility]: [facility] Blood sugar Blood sugar 154 04/02/2018 SN[facility]: [facility] Blood sugar Blood sugar 187 04/02/2018 SNF: [facility] Blood sugar Blood sugar 187 04/02/2018 SN[facility]: [facility] Blood sugar Blood sugar 256 04/02/2018 SNF: [facility] Blood sugar Blood sugar 256 04/02/2018 SNF: [facility] Blood sugar Blood sugar 256 04/02/2018 SN[facility]: [facility] Blood sugar Blood sugar 256 04/02/2018 SN[facility]: [facility] Blood sugar Blood sugar 198 04/01/2018 SNF: [facility] Blood sugar Blood sugar 198 04/01/2018 SNF: [facility] Blood sugar Blood sugar 130 04/01/2018 SNF: [facility] Blood sugar Blood sugar 130 04/01/2018 SNF: [facility] Blood sugar Blood sugar 130 04/01/2018 SNF: [facility] Blood sugar Blood sugar 130 04/01/2018 SNF: [facility] Blood sugar Blood sugar 113 04/01/2018 SN[facility]: [facility] Blood sugar Blood sugar 113 04/01/2018 SNF: [facility] Blood sugar Blood sugar 113 04/01/2018 SNF: [facility] Blood sugar Blood sugar 113 04/01/2018 SN[facility]: [facility] Blood sugar Blood sugar 365 04/01/2018 SNF: [facility] Blood sugar Blood sugar 365 04/01/2018 SNF: [facility] Blood sugar Blood sugar 365 04/01/2018 SNF: [facility] Blood sugar Blood sugar 365 04/01/2018 SNF: [facility] Blood sugar Blood sugar 209 03/31/2018 SNF: [facility] Blood sugar Blood sugar 209 03/31/2018 SNF: [facility] Blood sugar Blood sugar 209 03/31/2018 SNF: [facility] Blood sugar Blood sugar 209 03/31/2018 SNF: [facility] Blood sugar Blood sugar 187 03/31/2018 SNF: [facility] Blood sugar Blood sugar 187 03/31/2018 SNF: [facility] Blood sugar Blood sugar 120 03/31/2018 SNF: [facility] Blood sugar Blood sugar 120 03/31/2018 SNF: [facility] Blood sugar Blood sugar 315 03/31/2018 SNF: [facility] Blood sugar Blood sugar 315 03/31/2018 SNF: [facility] Blood sugar Blood sugar 315 03/31/2018 SNF: [facility] Blood sugar Blood sugar 315 03/31/2018 SNF: [facility] Blood sugar Blood sugar 348 03/30/2018 SNF: [facility] Blood sugar Blood sugar 348 03/30/2018 SNF: [facility] Blood sugar Blood sugar 348 03/30/2018 SNF: [facility] Blood sugar Blood sugar 348 03/30/2018 SNF: [facility] Blood sugar Blood sugar 178 03/30/2018 SNF: [facility] Blood sugar Blood sugar 178 03/30/2018 SNF: [facility] Blood sugar Blood sugar 178 03/30/2018 SNF: [facility] Blood sugar Blood sugar 178 03/30/2018 SNF: [facility] Blood sugar Blood sugar 206 03/30/2018 SNF: [facility] Blood sugar Blood sugar 206 03/30/2018 SNF: [facility] Blood sugar Blood sugar 163 03/30/2018 SNF: [facility] Blood sugar Blood sugar 163 03/30/2018 SNF: [facility] Blood sugar Blood sugar 163 03/30/2018 SNF: [facility] Blood sugar Blood sugar 163 03/30/2018 SNF: [facility] Blood sugar Blood sugar 206 03/29/2018 SNF: [facility] Blood sugar Blood sugar 206 03/29/2018 SNF: [facility] Blood sugar Blood sugar 206 03/29/2018 SNF: [facility] Blood sugar Blood sugar 206 03/29/2018 SNF: [facility] Blood sugar Blood sugar 274 03/29/2018 SNF: [facility] Blood sugar Blood sugar 274 03/29/2018 SNF: [facility] Blood sugar Blood sugar 155 03/29/2018 SNF: [facility] Blood sugar Blood sugar 155 03/29/2018 SNF: [facility] Blood sugar Blood sugar 155 03/29/2018 SNF: [facility] Blood sugar Blood sugar 155 03/29/2018 SNF: [facility] Blood sugar Blood sugar 213 03/29/2018 SNF: [facility] Blood sugar Blood sugar 213 03/29/2018 SNF: [facility] Blood sugar Blood sugar 213 03/29/2018 SNF: [facility] Blood sugar Blood sugar 213 03/29/2018 SNF: [facility] Blood sugar Blood sugar 164 03/28/2018 SNF: [facility] Blood sugar Blood sugar 164 03/28/2018 SNF: [facility] Blood sugar Blood sugar 164 03/28/2018 SNF: [facility] Blood sugar Blood sugar 164 03/28/2018 SNF: [facility] Blood sugar Blood sugar 245 03/28/2018 SNF: [facility] Blood sugar Blood sugar 245 03/28/2018 SNF: [facility] Blood nucleated erythrocytes count (number/volume) 2 03/14/2018 [facility] Erythrocyte sedimentation rate by Westergren method 28 0 - 13 02/23/2018 [facility] Hemoglobin A1c Percent 8.1 4.0 - 7.0 02/23/2018 [facility] Serum or plasma triglyceride measurement (mass/volume) 135 0 - 149 02/23/2018 [facility] Serum or plasma cholesterol measurement (mass/volume) 153 0 - 199 02/23/2018 [facility] Serum or plasma cholesterol in LDL measurement (mass/volume) 84 60 - 130 02/23/2018 [facility] Serum or plasma cholesterol in HDL measurement (mass/volume) 42 40 - 60 02/23/2018 [facility] Serum or plasma total cholesterol/cholesterol in HDL mass ratio 3.6 3.9 - 4.7 02/23/2018 [facility] Bacteria identification in wound by culture Organism: PSEUDOMONAS AERUGINOSA 02/23/2018 [facility] Serum or plasma uric acid measurement (mass/volume) 10.6 4.8 - 8.0 01/05/2018 [facility] Bacterial urine culture Urine Culture [facility] Pathology Reports No Data Provided for This Section Diagnostic Reports No Data Provided for This Section Consultation Notes No Data Provided for This Section Discharge Summaries No Data Provided for This Section History and Physicals No Data Provided for This Section Vital Signs Vital Sign Value Date Comments Source Respitory Rate 17 06/22/2018 SNF: [facility] Systolic (mm Hg) 94 06/22/2018 SNF: [facility] Diastolic (mm Hg) 53 06/22/2018 SNF: [facility] Temperature Oral (F) 97.5 F 06/22/2018 SNF: [facility] Heart Rate 86 {beats}/min 06/22/2018 SNF: [facility] Systolic (mm Hg) 94 06/22/2018 SNF: [facility] Diastolic (mm Hg) 53 06/22/2018 SNF: [facility] Heart Rate 84 {beats}/min 06/22/2018 SNF: [facility] Respitory Rate 18 06/22/2018 SNF: [facility] Systolic (mm Hg) 135 06/22/2018 SNF: [facility] Diastolic (mm Hg) 73 06/22/2018 SNF: [facility] Temperature Oral (F) 97 F 06/22/2018 SNF: [facility] Heart Rate 68 {beats}/min 06/22/2018 SNF: [facility] Systolic (mm Hg) 135 06/22/2018 [facility] Diastolic (mm Hg) 78 06/22/2018 SNF: [facility] Heart Rate 68 {beats}/min 06/22/2018 SNF: [facility] Systolic (mm Hg) 135 06/22/2018 [facility] Diastolic (mm Hg) 78 06/22/2018 SNF: [facility] Heart Rate 68 {beats}/min 06/22/2018 SNF: [facility] Respitory Rate 18 06/22/2018 SNF: [facility] Systolic (mm Hg) 139 06/22/2018 SNF: [facility] Diastolic (mm Hg) 76 06/22/2018 SNF: [facility] Temperature Oral (F) 97.7 F 06/22/2018 SNF: [facility] Heart Rate 75 {beats}/min 06/22/2018 SNF: [facility] Systolic (mm Hg) 132 06/21/2018 SNF: [facility] Diastolic (mm Hg) 68 06/21/2018 SNF: [facility] Heart Rate 80 {beats}/min 06/21/2018 SNF: [facility] Systolic (mm Hg) 132 06/21/2018 SNF: [facility] Diastolic (mm Hg) 68 06/21/2018 SNF: [facility] Heart Rate 80 {beats}/min 06/21/2018 SNF: [facility] Respitory Rate 18 06/21/2018 SNF: [facility] Systolic (mm Hg) 138 06/21/2018 SNF: [facility] Diastolic (mm Hg) 76 06/21/2018 SNF: [facility] Temperature Oral (F) 97.7 F 06/21/2018 SNF: [facility] Heart Rate 73 {beats}/min 06/21/2018 [facility]: [facility] Respitory Rate 18 06/21/2018 [facility]: [facility] [place] Systolic (mm Hg) 114 06/21/2018 [facility] Diastolic (mm Hg) 52 06/21/2018 SN[facility]: [facility] Temperature Oral (F) 97.8 F 06/21/2018 SNF: [facility] Heart Rate 81 {beats}/min 06/21/2018 [facility]: [facility] [place] Systolic (mm Hg) 135 06/21/2018 SN[facility]: [facility] [place] Diastolic (mm Hg) 77 06/21/2018 SN[facility]: [facility] Heart Rate 80 {beats}/min 06/21/2018 SN[facility]: [facility] [place] Systolic (mm Hg) 135 06/21/2018 [facility]: [facility] Diastolic (mm Hg) 77 06/21/2018 SNF: [facility] Heart Rate 68 {beats}/min 06/21/2018 [facility]: [facility] Respitory Rate 18 06/20/2018 [facility]: [facility] Systolic (mm Hg) 137 06/20/2018 SN[facility]: [facility] [place] Diastolic (mm Hg) 76 06/20/2018 SNF: [facility] Temperature Oral (F) 97.9 F 06/20/2018 SNF: [facility] Heart Rate 73 {beats}/min 06/20/2018 SN[facility]: [facility] [place] Systolic (mm Hg) 130 06/20/2018 [facility]: [facility] Diastolic (mm Hg) 86 06/20/2018 SNF: [facility] Heart Rate 75 {beats}/min 06/20/2018 SN[facility]: [facility] Respitory Rate 18 06/20/2018 SN[facility]: [facility] [place] Systolic (mm Hg) 134 06/20/2018 [facility] [place] Diastolic (mm Hg) 62 06/20/2018 SNF: [facility] Temperature Oral (F) 98.1 F 06/20/2018 SNF: [facility] Heart Rate 76 {beats}/min 06/20/2018 SNF: [facility] Systolic (mm Hg) 130 06/20/2018 SNF: [facility] Diastolic (mm Hg) 86 06/20/2018 SNF: [facility] Heart Rate 75 {beats}/min 06/20/2018 SNF: [facility] [place] Respitory Rate 18 06/20/2018 SNF: [facility] Systolic (mm Hg) 125 06/20/2018 SNF: [facility] [place] Diastolic (mm Hg) 65 06/20/2018 SNF: [facility] Temperature Oral (F) 97.5 F 06/20/2018 SNF: [facility] Heart Rate 90 {beats}/min 06/20/2018 SN[facility]: [facility] Respitory Rate 18 06/20/2018 SNF: [facility] Systolic (mm Hg) 119 06/20/2018 SN[facility]: [facility] Diastolic (mm Hg) 69 06/20/2018 SNF: [facility] Temperature Oral (F) 97.3 F 06/20/2018 SNF: [facility] Heart Rate 92 {beats}/min 06/20/2018 SNF: [facility] Systolic (mm Hg) 125 06/20/2018 SNF: [facility] Diastolic (mm Hg) 69 06/20/2018 SNF: [facility] Heart Rate 104 {beats}/min 06/20/2018 SNF: [facility] Systolic (mm Hg) 125 06/20/2018 SNF: [facility] Diastolic (mm Hg) 69 06/20/2018 SNF: [facility] Heart Rate 104 {beats}/min 06/20/2018 SNF: [facility] Respitory Rate 18 06/19/2018 [facility]: [facility] [place] Systolic (mm Hg) 157 06/19/2018 SNF: [facility] Diastolic (mm Hg) 84 06/19/2018 SNF: [facility] Temperature Oral (F) 97.6 F 06/19/2018 SNF: [facility] Heart Rate 75 {beats}/min 06/19/2018 SNF: [facility] Systolic (mm Hg) 157 06/19/2018 [facility]: [facility] [place] Diastolic (mm Hg) 84 06/19/2018 [facility]: [facility] Heart Rate 75 {beats}/min 06/19/2018 [facility]: [facility] [place] Systolic (mm Hg) 157 06/19/2018 SN[facility]: [facility] [place] Diastolic (mm Hg) 84 06/19/2018 SN[facility]: [facility] [place] Heart Rate 75 {beats}/min 06/19/2018 SNF: [facility] [place] Respitory Rate 18 06/19/2018 [facility]: [facility] [place] Systolic (mm Hg) 100 06/19/2018 SN[facility]: [facility] [place] Diastolic (mm Hg) 64 06/19/2018 [facility]: [facility] Temperature Oral (F) 98 F 06/19/2018 SN[facility]: [facility] Heart Rate 90 {beats}/min 06/19/2018 SN[facility]: [facility] Respitory Rate 18 06/19/2018 SNF: [facility] [place] Systolic (mm Hg) 113 06/19/2018 SN[facility]: [facility] [place] Diastolic (mm Hg) 81 06/19/2018 SNF: [facility] Temperature Oral (F) 97.3 F 06/19/2018 SNF: [facility] Heart Rate 89 {beats}/min 06/19/2018 SN[facility]: [facility] [place] Systolic (mm Hg) 159 06/19/2018 SN[facility]: [facility] [place] Diastolic (mm Hg) 74 06/19/2018 SN[facility]: [facility] Heart Rate 80 {beats}/min 06/19/2018 [facility]: [facility] [place] Systolic (mm Hg) 159 06/19/2018 SN[facility]: [facility] [place] Diastolic (mm Hg) 74 06/19/2018 SNF: [facility] [place] Heart Rate 80 {beats}/min 06/19/2018 SN[facility]: [facility] [place] Respitory Rate 17 06/18/2018 [facility]: [facility] [place] Systolic (mm Hg) 112 06/18/2018 SN[facility]: [facility] [place] Diastolic (mm Hg) 62 06/18/2018 SNF: [facility] Temperature Oral (F) 98.5 F 06/18/2018 SNF: [facility] Heart Rate 96 {beats}/min 06/18/2018 SNF: [facility] [place] Systolic (mm Hg) 112 06/18/2018 SNF: [facility] Diastolic (mm Hg) 62 06/18/2018 SNF: [facility] Heart Rate 96 {beats}/min 06/18/2018 SN[facility]: [facility] Systolic (mm Hg) 110 06/18/2018 SNF: [facility] Diastolic (mm Hg) 54 06/18/2018 SNF: [facility] Heart Rate 98 {beats}/min 06/18/2018 SNF: [facility] Weight 195.8 06/18/2018 SNF: [facility] Height 67 06/18/2018 SN[facility]: [facility] Respitory Rate 18 06/18/2018 SNF: [facility] Systolic (mm Hg) 108 06/18/2018 SNF: [facility] Diastolic (mm Hg) 52 06/18/2018 SNF: [facility] Temperature Oral (F) 98.6 F 06/18/2018 SNF: [facility] Heart Rate 99 {beats}/min 06/18/2018 SNF: [facility] Systolic (mm Hg) 104 06/18/2018 SNF: [facility] Diastolic (mm Hg) 63 06/18/2018 SNF: [facility] Heart Rate 100 {beats}/min 06/18/2018 SNF: [facility] Systolic (mm Hg) 104 06/17/2018 SNF: [facility] Diastolic (mm Hg) 63 06/17/2018 SNF: [facility] Temperature Oral (F) 97.8 F 06/17/2018 SNF: [facility] Respitory Rate 19 06/17/2018 SNF: [facility] Heart Rate 100 {beats}/min 06/17/2018 SN[facility]: [facility] Respitory Rate 18 04/08/2018 SNF: [facility] Systolic (mm Hg) 136 04/08/2018 SNF: [facility] Diastolic (mm Hg) 72 04/08/2018 SNF: [facility] Temperature Oral (F) 97.9 F 04/08/2018 SNF: [facility] Heart Rate 88 {beats}/min 04/08/2018 SNF: [facility] Respitory Rate 18 04/08/2018 SNF: [facility] Systolic (mm Hg) 136 04/08/2018 SNF: [facility] [place] Diastolic (mm Hg) 72 04/08/2018 SNF: [facility] Temperature Oral (F) 97.9 F 04/08/2018 SNF: [facility] Heart Rate 88 {beats}/min 04/08/2018 SNF: [facility] Weight 189 04/08/2018 SNF: [facility] Weight 189 04/08/2018 SNF: [facility] Respitory Rate 18 04/08/2018 SNF: [facility] Systolic (mm Hg) 146 04/08/2018 SNF: [facility] Diastolic (mm Hg) 59 04/08/2018 SNF: [facility] Temperature Oral (F) 98.6 F 04/08/2018 SNF: [facility] Heart Rate 89 {beats}/min 04/08/2018 SNF: [facility] Respitory Rate 18 04/08/2018 SNF: [facility] Systolic (mm Hg) 146 04/08/2018 SNF: [facility] Diastolic (mm Hg) 59 04/08/2018 SNF: [facility] Temperature Oral (F) 98.6 F 04/08/2018 SNF: [facility] Heart Rate 89 {beats}/min 04/08/2018 [facility]: [facility] Respitory Rate 18 04/08/2018 SNF: [facility] [place] Systolic (mm Hg) 148 04/08/2018 SNF: [facility] Diastolic (mm Hg) 60 04/08/2018 SNF: [facility] Temperature Oral (F) 96.8 F 04/08/2018 SNF: [facility] Heart Rate 80 {beats}/min 04/08/2018 SNF: [facility] [place] Respitory Rate 18 04/08/2018 SNF: [facility] [place] Systolic (mm Hg) 148 04/08/2018 SNF: [facility] [place] Diastolic (mm Hg) 60 04/08/2018 SNF: [facility] Temperature Oral (F) 96.8 F 04/08/2018 SNF: [facility] Heart Rate 80 {beats}/min 04/08/2018 SNF: [facility] [place] Respitory Rate 18 04/07/2018 SNF: [facility] Systolic (mm Hg) 148 04/07/2018 SNF: [facility] [place] Diastolic (mm Hg) 60 04/07/2018 SNF: [facility] Temperature Oral (F) 96.8 F 04/07/2018 SNF: [facility] Heart Rate 80 {beats}/min 04/07/2018 SNF: [facility] Respitory Rate 18 04/07/2018 SNF: [facility] Systolic (mm Hg) 148 04/07/2018 SNF: [facility] Diastolic (mm Hg) 60 04/07/2018 SNF: [facility] Temperature Oral (F) 96.8 F 04/07/2018 SNF: [facility] Heart Rate 80 {beats}/min 04/07/2018 SNF: [facility] Respitory Rate 18 04/07/2018 SNF: [facility] Systolic (mm Hg) 151 04/07/2018 SNF: [facility] Diastolic (mm Hg) 59 04/07/2018 SNF: [facility] Temperature Oral (F) 96.4 F 04/07/2018 SNF: [facility] Heart Rate 82 {beats}/min 04/07/2018 SNF: [facility] Respitory Rate 18 04/07/2018 SNF: [facility] Systolic (mm Hg) 151 04/07/2018 SNF: [facility] Diastolic (mm Hg) 59 04/07/2018 SNF: [facility] Temperature Oral (F) 96.4 F 04/07/2018 SNF: [facility] Heart Rate 82 {beats}/min 04/07/2018 [facility]: [facility] [place] Respitory Rate 18 04/07/2018 SN[facility]: [facility] [place] Systolic (mm Hg) 128 04/07/2018 [facility]: [facility] [place] Diastolic (mm Hg) 66 04/07/2018 [facility]: [facility] [place] Temperature Oral (F) 98 F 04/07/2018 SN[facility]: [facility] [place] Heart Rate 72 {beats}/min 04/07/2018 [facility]: [facility] [place] Respitory Rate 18 04/07/2018 SN[facility]: [facility] [place] Systolic (mm Hg) 128 04/07/2018 SN[facility]: [facility] [place] Diastolic (mm Hg) 66 04/07/2018 [facility]: [facility] Temperature Oral (F) 98 F 04/07/2018 [facility]: [facility] Heart Rate 72 {beats}/min 04/07/2018 SN[facility]: [facility] [place] Respitory Rate 18 04/06/2018 SN[facility]: [facility] [place] Systolic (mm Hg) 125 04/06/2018 SNF: [facility] [place] Diastolic (mm Hg) 74 04/06/2018 SN[facility]: [facility] Temperature Oral (F) 97.8 F 04/06/2018 SNF: [facility] Heart Rate 73 {beats}/min 04/06/2018 SN[facility]: [facility] [place] Respitory Rate 18 04/06/2018 SN[facility]: [facility] [place] Systolic (mm Hg) 125 04/06/2018 SN[facility]: [facility] [place] Diastolic (mm Hg) 74 04/06/2018 [facility]: [facility] Temperature Oral (F) 97.8 F 04/06/2018 SNF: [facility] [place] Heart Rate 73 {beats}/min 04/06/2018 SNF: [facility] [place] Respitory Rate 18 04/06/2018 SN[facility]: [facility] [place] Systolic (mm Hg) 129 04/06/2018 SN[facility]: [facility] [place] Diastolic (mm Hg) 83 04/06/2018 SNF: [facility] Temperature Oral (F) 98.3 F 04/06/2018 [facility] Heart Rate 66 {beats}/min 04/06/2018 SN[facility]: [facility] [place] Respitory Rate 18 04/06/2018 SNF: [facility] [place] Systolic (mm Hg) 129 04/06/2018 SNF: [facility] [place] Diastolic (mm Hg) 83 04/06/2018 SN[facility]: [facility] Temperature Oral (F) 98.3 F 04/06/2018 SNF: [facility] [place] Heart Rate 66 {beats}/min 04/06/2018 SNF: [facility] [place] Respitory Rate 17 04/06/2018 SN[facility]: [facility] [place] Systolic (mm Hg) 132 04/06/2018 SN[facility]: [facility] [place] Diastolic (mm Hg) 74 04/06/2018 SN[facility]: [facility] Temperature Oral (F) 98.8 F 04/06/2018 SNF: [facility] Heart Rate 70 {beats}/min 04/06/2018 SNF: [facility] [place] Respitory Rate 17 04/06/2018 SN[facility]: [facility] [place] Systolic (mm Hg) 132 04/06/2018 SN[facility]: [facility] [place] Diastolic (mm Hg) 74 04/06/2018 SNF: [facility] Temperature Oral (F) 98.8 F 04/06/2018 SNF: [facility] Heart Rate 70 {beats}/min 04/06/2018 SNF: [facility] [place] Respitory Rate 17 04/06/2018 [facility]: [facility] [place] Systolic (mm Hg) 132 04/06/2018 SN[facility]: [facility] [place] Diastolic (mm Hg) 74 04/06/2018 SN[facility]: [facility] Temperature Oral (F) 98.8 F 04/06/2018 SN[facility]: [facility] Heart Rate 70 {beats}/min 04/06/2018 SNF: [facility] [place] Respitory Rate 17 04/06/2018 SNF: [facility] Systolic (mm Hg) 132 04/06/2018 [facility] Di[facility] (mm Hg) 74 04/06/2018 SNF: [facility] Temperature Oral (F) 98.8 F 04/06/2018 SNF: [facility] Heart Rate 70 {beats}/min 04/06/2018 SNF: [facility] [place] Respitory Rate 18 04/05/2018 SNF: [facility] Systolic (mm Hg) 138 04/05/2018 SNF: [facility] [place] Diastolic (mm Hg) 74 04/05/2018 SNF: [facility] Temperature Oral (F) 98.1 F 04/05/2018 SNF: [facility] Heart Rate 88 {beats}/min 04/05/2018 SNF: [facility] Respitory Rate 18 04/05/2018 SNF: [facility] Systolic (mm Hg) 138 04/05/2018 SNF: [facility] Diastolic (mm Hg) 74 04/05/2018 SNF: [facility] Temperature Oral (F) 98.1 F 04/05/2018 SNF: [facility] Heart Rate 88 {beats}/min 04/05/2018 SNF: [facility] [place] Respitory Rate 18 04/05/2018 SNF: [facility] [place] Systolic (mm Hg) 147 04/05/2018 SNF: [facility] [place] Diastolic (mm Hg) 65 04/05/2018 SNF: [facility] Temperature Oral (F) 97.5 F 04/05/2018 SNF: [facility] Heart Rate 87 {beats}/min 04/05/2018 SNF: [facility] Respitory Rate 18 04/05/2018 SNF: [facility] Systolic (mm Hg) 147 04/05/2018 SNF: [facility] [place] Diastolic (mm Hg) 65 04/05/2018 SNF: [facility] Temperature Oral (F) 97.5 F 04/05/2018 SNF: [facility] Heart Rate 87 {beats}/min 04/05/2018 SNF: [facility] Respitory Rate 17 04/05/2018 SNF: [facility] Systolic (mm Hg) 120 04/05/2018 SNF: [facility] Diastolic (mm Hg) 72 04/05/2018 SNF: [facility] Temperature Oral (F) 98.8 F 04/05/2018 SNF: [facility] Heart Rate 65 {beats}/min 04/05/2018 SNF: [facility] [place] Respitory Rate 17 04/05/2018 SN[facility]: [facility] [place] Systolic (mm Hg) 120 04/05/2018 SNF: [facility] [place] Diastolic (mm Hg) 72 04/05/2018 SNF: [facility] Temperature Oral (F) 98.8 F 04/05/2018 SNF: [facility] Heart Rate 65 {beats}/min 04/05/2018 SNF: [facility] Respitory Rate 17 04/05/2018 SNF: [facility] Systolic (mm Hg) 120 04/05/2018 SNF: [facility] Diastolic (mm Hg) 72 04/05/2018 SNF: [facility] Temperature Oral (F) 98.8 F 04/05/2018 SNF: [facility] Heart Rate 65 {beats}/min 04/05/2018 SNF: [facility] Respitory Rate 17 04/05/2018 SNF: [facility] Systolic (mm Hg) 120 04/05/2018 SNF: [facility] Diastolic (mm Hg) 72 04/05/2018 SNF: [facility] Temperature Oral (F) 98.8 F 04/05/2018 SNF: [facility] Heart Rate 65 {beats}/min 04/05/2018 [facility] Resp[facility] Rate 18 04/04/2018 [facility]: [facility] [place] Systolic (mm Hg) 125 04/04/2018 SNF: [facility] [place] Diastolic (mm Hg) 76 04/04/2018 SNF: [facility] Temperature Oral (F) 97.4 F 04/04/2018 SNF: [facility] Heart Rate 78 {beats}/min 04/04/2018 SN[facility]: [facility] [place] Respitory Rate 18 04/04/2018 SNF: [facility] Systolic (mm Hg) 125 04/04/2018 SNF: [facility] Diastolic (mm Hg) 76 04/04/2018 SNF: [facility] Temperature Oral (F) 97.4 F 04/04/2018 SNF: [facility] Heart Rate 78 {beats}/min 04/04/2018 SNF: [facility] Respitory Rate 18 04/04/2018 SNF: [facility] Systolic (mm Hg) 129 04/04/2018 SNF: [facility] Diastolic (mm Hg) 74 04/04/2018 SNF: [facility] Temperature Oral (F) 97.5 F 04/04/2018 SNF: [facility] Heart Rate 80 {beats}/min 04/04/2018 SNF: [facility] Respitory Rate 18 04/04/2018 SNF: [facility] Systolic (mm Hg) 129 04/04/2018 SNF: [facility] Diastolic (mm Hg) 74 04/04/2018 SNF: [facility] Temperature Oral (F) 97.5 F 04/04/2018 SNF: [facility] Heart Rate 80 {beats}/min 04/04/2018 SNF: [facility] Respitory Rate 17 04/04/2018 SNF: [facility] Systolic (mm Hg) 140 04/04/2018 SNF: [facility] Diastolic (mm Hg) 69 04/04/2018 SNF: [facility] Temperature Oral (F) 98.3 F 04/04/2018 SNF: [facility] Heart Rate 85 {beats}/min 04/04/2018 SNF: [facility] Respitory Rate 17 04/04/2018 SNF: [facility] Systolic (mm Hg) 140 04/04/2018 SNF: [facility] Diastolic (mm Hg) 69 04/04/2018 SNF: [facility] Temperature Oral (F) 98.3 F 04/04/2018 SNF: [facility] Heart Rate 85 {beats}/min 04/04/2018 [facility] Respitory Rate 17 04/04/2018 [facility] Systolic (mm Hg) 159 04/04/2018 [facility] [place] Diastolic (mm Hg) 68 04/04/2018 [facility]: [facility] Temperature Oral (F) 98.6 F 04/04/2018 SNF: [facility] [place] Heart Rate 85 {beats}/min 04/04/2018 SNF: [facility] [place] Respitory Rate 17 04/03/2018 SNF: [facility] [place] Systolic (mm Hg) 159 04/03/2018 [facility]: [facility] Diastolic (mm Hg) 68 04/03/2018 [facility]: [facility] Temperature Oral (F) 98.6 F 04/03/2018 SN[facility]: [facility] Heart Rate 85 {beats}/min 04/03/2018 SNF: [facility] [place] Heart Rate 62 {beats}/min 04/03/2018 SNF: [facility] Heart Rate 62 {beats}/min 04/03/2018 [facility]: [facility] Respitory Rate 20 04/03/2018 [facility] Systolic (mm Hg) 141 04/03/2018 SNF: [facility] [place] Diastolic (mm Hg) 78 04/03/2018 SN[facility]: [facility] Temperature Oral (F) 97.9 F 04/03/2018 SNF: [facility] Heart Rate 79 {beats}/min 04/03/2018 [facility]: [facility] Respitory Rate 20 04/03/2018 [facility]: [facility] Systolic (mm Hg) 141 04/03/2018 SN[facility]: [facility] Diastolic (mm Hg) 78 04/03/2018 [facility]: [facility] Temperature Oral (F) 97.9 F 04/03/2018 SN[facility]: [facility] Heart Rate 79 {beats}/min 04/03/2018 SN[facility]: [facility] Respitory Rate 20 04/02/2018 [facility]: [facility] Systolic (mm Hg) 126 04/02/2018 SNF: [facility] Diastolic (mm Hg) 73 04/02/2018 SNF: [facility] Temperature Oral (F) 98.2 F 04/02/2018 SNF: [facility] Heart Rate 64 {beats}/min 04/02/2018 SNF: [facility] Respitory Rate 20 04/02/2018 SNF: [facility] Systolic (mm Hg) 126 04/02/2018 SNF: [facility] Diastolic (mm Hg) 73 04/02/2018 SNF: [facility] Temperature Oral (F) 98.2 F 04/02/2018 SNF: [facility] Heart Rate 64 {beats}/min 04/02/2018 SNF: [facility] Respitory Rate 20 04/02/2018 SNF: [facility] Systolic (mm Hg) 118 04/02/2018 SNF: [facility] Diastolic (mm Hg) 65 04/02/2018 SNF: [facility] Temperature Oral (F) 97.8 F 04/02/2018 SNF: [facility] Heart Rate 65 {beats}/min 04/02/2018 SNF: [facility] Respitory Rate 20 04/02/2018 SNF: [facility] Systolic (mm Hg) 118 04/02/2018 SNF: [facility] Diastolic (mm Hg) 65 04/02/2018 SNF: [facility] Temperature Oral (F) 97.8 F 04/02/2018 SNF: [facility] Heart Rate 65 {beats}/min 04/02/2018 SNF: [facility] Respitory Rate 20 04/01/2018 SNF: [facility] Temperature Oral (F) 97.9 F 04/01/2018 SNF: [facility] Respitory Rate 20 04/01/2018 SNF: [facility] Temperature Oral (F) 97.9 F 04/01/2018 SNF: [facility] Weight 191 04/01/2018 SNF: [facility] Weight 191 04/01/2018 SNF: [facility] Respitory Rate 18 04/01/2018 SNF: [facility] Systolic (mm Hg) 122 04/01/2018 [facility]: [facility] Diastolic (mm Hg) 70 04/01/2018 [facility]: [facility] Temperature Oral (F) 97.8 F 04/01/2018 SN[facility]: [facility] Heart Rate 70 {beats}/min 04/01/2018 SNF: [facility] [place] Respitory Rate 18 04/01/2018 SN[facility]: [facility] [place] Systolic (mm Hg) 122 04/01/2018 [facility]: [facility] Diastolic (mm Hg) 70 04/01/2018 SN[facility]: [facility] Temperature Oral (F) 97.8 F 04/01/2018 SNF: [facility] Heart Rate 70 {beats}/min 04/01/2018 [facility]: [facility] Respitory Rate 18 04/01/2018 [facility]: [facility] Systolic (mm Hg) 122 04/01/2018 SNF: [facility] [place] Diastolic (mm Hg) 70 04/01/2018 SNF: [facility] Temperature Oral (F) 97.8 F 04/01/2018 SNF: [facility] Heart Rate 70 {beats}/min 04/01/2018 [facility]: [facility] Respitory Rate 18 04/01/2018 SN[facility]: [facility] Systolic (mm Hg) 122 04/01/2018 SNF: [facility] [place] Diastolic (mm Hg) 70 04/01/2018 SNF: [facility] Temperature Oral (F) 97.8 F 04/01/2018 SNF: [facility] Heart Rate 70 {beats}/min 04/01/2018 SNF: [facility] [place] Respitory Rate 18 04/01/2018 [facility]: [facility] Systolic (mm Hg) 124 04/01/2018 [facility]: [facility] Diastolic (mm Hg) 72 04/01/2018 SN[facility]: [facility] Temperature Oral (F) 97.2 F 04/01/2018 SNF: [facility] Heart Rate 74 {beats}/min 04/01/2018 [facility] 18 04[facility]01/2018 [facility] Systolic (mm Hg) 124 04/01/2018 [facility] [place] Diastolic (mm Hg) 72 04/01/2018 SNF: [facility] Temperature Oral (F) 97.2 F 04/01/2018 SNF: [facility] Heart Rate 74 {beats}/min 04/01/2018 SNF: [facility] [place] Respitory Rate 18 03/31/2018 SNF: [facility] [place] Systolic (mm Hg) 122 03/31/2018 SNF: [facility] [place] Diastolic (mm Hg) 76 03/31/2018 SNF: [facility] Temperature Oral (F) 97.4 F 03/31/2018 SNF: [facility] Heart Rate 76 {beats}/min 03/31/2018 [facility] Respitory Rate 18 03/31/2018 SNF: [facility] Systolic (mm Hg) 122 03/31/2018 SNF: [facility] Diastolic (mm Hg) 76 03/31/2018 SNF: [facility] Temperature Oral (F) 97.4 F 03/31/2018 SNF: [facility] Heart Rate 76 {beats}/min 03/31/2018 SNF: [facility] Respitory Rate 16 03/31/2018 SNF: [facility] Systolic (mm Hg) 110 03/31/2018 SNF: [facility] Diastolic (mm Hg) 75 03/31/2018 SNF: [facility] Temperature Oral (F) 97.5 F 03/31/2018 SNF: [facility] Heart Rate 74 {beats}/min 03/31/2018 SNF: [facility] Respitory Rate 16 03/31/2018 SNF: [facility] Systolic (mm Hg) 110 03/31/2018 SNF: [facility] Diastolic (mm Hg) 75 03/31/2018 SNF: [facility] Temperature Oral (F) 97.5 F 03/31/2018 SNF: [facility] Heart Rate 74 {beats}/min 03/31/2018 SNF: [facility] [place] Respitory Rate 16 03/31/2018 SNF: [facility] [place] Systolic (mm Hg) 110 03/31/2018 [facility]: [facility] [place] Diastolic (mm Hg) 75 03/31/2018 SNF: [facility] Temperature Oral (F) 97.5 F 03/31/2018 SNF: [facility] Heart Rate 78 {beats}/min 03/31/2018 SNF: [facility] [place] Respitory Rate 16 03/31/2018 SNF: [facility] [place] Systolic (mm Hg) 110 03/31/2018 SN[facility]: [facility] [place] Diastolic (mm Hg) 75 03/31/2018 SNF: [facility] Temperature Oral (F) 97.5 F 03/31/2018 SNF: [facility] Heart Rate 78 {beats}/min 03/31/2018 SNF: [facility] Respitory Rate 18 03/30/2018 SNF: [facility] Systolic (mm Hg) 148 03/30/2018 SNF: [facility] [place] Diastolic (mm Hg) 74 03/30/2018 SNF: [facility] Temperature Oral (F) 97.6 F 03/30/2018 SNF: [facility] Heart Rate 77 {beats}/min 03/30/2018 SNF: [facility] Respitory Rate 18 03/30/2018 SNF: [facility] Systolic (mm Hg) 148 03/30/2018 SNF: [facility] Diastolic (mm Hg) 74 03/30/2018 SNF: [facility] Temperature Oral (F) 97.6 F 03/30/2018 SNF: [facility] Heart Rate 77 {beats}/min 03/30/2018 SNF: [facility] [place] Respitory Rate 18 03/29/2018 SNF: [facility] Systolic (mm Hg) 150 03/29/2018 [facility]: [facility] Diastolic (mm Hg) 82 03/29/2018 SNF: [facility] Temperature Oral (F) 98 F 03/29/2018 SNF: [facility] Heart Rate 74 {beats}/min 03/29/2018 SNF: [facility] Respitory Rate 18 03/29/2018 SNF: [facility] Systolic (mm Hg) 150 03/29/2018 SNF: [facility] Diastolic (mm Hg) 82 03/29/2018 SNF: [facility] Temperature Oral (F) 98 F 03/29/2018 SNF: [facility] Heart Rate 74 {beats}/min 03/29/2018 SNF: [facility] Respitory Rate 20 03/29/2018 SNF: [facility] Systolic (mm Hg) 144 03/29/2018 SNF: [facility] Diastolic (mm Hg) 75 03/29/2018 SNF: [facility] Temperature Oral (F) 98.2 F 03/29/2018 SNF: [facility] Heart Rate 80 {beats}/min 03/29/2018 SNF: [facility] Respitory Rate 20 03/29/2018 SNF: [facility] Systolic (mm Hg) 144 03/29/2018 SNF: [facility] Diastolic (mm Hg) 75 03/29/2018 SNF: [facility] Temperature Oral (F) 98.2 F 03/29/2018 SNF: [facility] Heart Rate 80 {beats}/min 03/29/2018 SNF: [facility] Weight 189 03/28/2018 SNF: [facility] Height 67 03/28/2018 SNF: [facility] Weight 189 03/28/2018 SNF: [facility] Height 67 03/28/2018 SNF: [facility] Respitory Rate 20 03/28/2018 SNF: [facility] Systolic (mm Hg) 139 03/28/2018 SNF: [facility] Diastolic (mm Hg) 62 03/28/2018 SNF: [facility] Temperature Oral (F) 98.3 F 03/28/2018 SNF: [facility] Heart Rate 82 {beats}/min 03/28/2018 SNF: [facility] Respitory Rate 20 03/28/2018 SNF: [facility] [...] DC Date Status Source Discharged Inpatient (obs) [id number] KALEB CHA MD 01/04/2018 01/06/2018 [facility] Discharged Inpatient [id number] KALEB CHA MD 02/23/2018 03/14/2018 [facility] Discharged Inpatient [id number] KALEB CHA MD 03/26/2018 03/27/2018 [facility] Discharged Inpatient (obs) [id number] KALEB CHA MD 05/04/2018 05/04/2018 [facility] Discharged Inpatient [id number] KALEB CHA MD 05/08/2018 05/15/2018 [facility] Discharged Inpatient (obs) [id number] KALEB CHA MD 05/23/2018 05/24/2018 [facility] Discharged Inpatient [id number] KALEB CHA MD 06/04/2018 06/17/2018 [facility] Discharged Inpatient [id number] KALEB CHA MD 06/22/2018 07/08/2018 [facility] Procedures Procedure Code Date Perfomer Comments Source CT of abdomen and pelvis without contrast [id number] 07/05/2018 [facility] X-ray of chest, two views [id number] 06/30/2018 [facility] Thoracentesis with ultrasound guidance [id number] 06/25/2018 [facility] X-ray of chest, two views [id number] 06/16/2018 [facility] TRANSFUSE NONAUT PLATELETS IN PERIPH VEIN, PERC [id number] 06/10/2018 [facility] TRANSFUSE NONAUT RED BLOOD CELLS IN PERIPH VEIN, PERC [id number] 06/06/2018 [facility] Computed tomography of chest without contrast [id number] 06/03/2018 [facility] X-ray of chest, single view [id number] 06/02/2018 [facility] Computed tomography of brain without radiopaque contrast [id number] 05/23/2018 [facility] X-ray of chest, single view [id number] 05/03/2018 [facility] X-ray of chest, single view [id number] 03/20/2018 [facility] CT of abdomen and pelvis without contrast [id number] 03/04/2018 [facility] EXCISION OF R FOOT SUBCU/FASCIA, OPEN APPROACH [id number] 02/25/2018 [facility] lower wo contrast [id number] 02/24/[address] [facility] [address] of abdomen and pelvis without contrast [id number] 02/23/2018 [facility] CT of abdomen and pelvis without contrast [id number] 01/05/2018 [facility] Computed tomography of chest without contrast [id number] 01/05/2018 [facility] X-ray of chest, two views [id number] 01/04/2018 J[facility]EL [facility] Assessment and Plan No Data Provided for This Section Plan of Care Plan of Care Date Source Discharge Date 07/08/18 7:15pm Disposition HOME HEALTH SERVICE Instructions/Education Provided Anemia Pyelonephritis Prescriptions See Medication Section Additional Instructions/Education DO NOT GIVE ANY DIABETIC MEDICATION ,GLIPIZIDE WAS DISCONTINUED. FOLLOW UP WITH [facility] NEXT WEEK. 07/08/2018 [facility] Social History Social History Date Source Social [...] 02/09/2017 3:54pm Not Applicable Not Applicable 07/08/2018 [facility] Smoking StatusStart DateEnd Date Unknown if ever smoked 06/22/2018 18:57:39 06/08/2018 SNF: [facility] Family History Value Date Source Relationship Condition [...] of hypertension Not Recorded 01/14/2017 3:25pm 07/08/2018 [facility] Advance Directives Order Name Results Value Date Source Advance Directives Advance Directives Directive Response Recorded Date/Time Does the patient have an advance directive? No 06/22/18 10:45pm If yes, is advance directive on file with [facility]? No 06/22/18 10:45pm If not on file with [facility] will patient provide a copy? No 06/22/18 10:45pm Do you have a Directive to Physician? Yes 06/22/18 5:34pm Do you have a Medical Power of Betting Clerk? Yes 06/22/18 5:34pm Do you have an [...] rights and responsibilities? Yes 06/22/18 5:34pm 07/08/2018 [facility] Advance Directives Advance Directives Cardiopulmonary Resuscitation 06/22/2018 SNF: [facility] Advance Directives Advance Directives Cardiopulmonary Resuscitation 04/08/2018 SNF: [facility] Functional Status No Data Provided for This Section
[2018-10-20] MEDS ORDERED: MORPHINE SULFATE 2 MG/ML SYR 1ML IV PRN (09:45)
[2018-10-20] MEDS: MORPHINE SULFATE INJ 4 MG/ML INJ 1ML IV PRN ×3 (09:57→18:07)
--- NOTE | 2018-10-20 10:23 | NUR ---
Jaky rose in [facility] - 10/20/[address] at [address] CHA SPEAKING WITH DR. Carmina LAWRENCE
--- NOTE | 2018-10-20 11:14 | NUR ---
PATIENT PLACED ON HOSPITAL BED
[2018-10-20 11:30] LABS: BILIRUBIN,URINE NEGATIVE (NEGATIVE); CLARITY,URINE SL CLOUDY (CLEAR); COLOR,URINE YELLOW (YELLOW); KETONES,URINE NEGATIVE (NEGATIVE); LEUKOCYTE ESTERASE ,URINE MODERATE (NEGATIVE); NITRITE,URINE NEGATIVE (NEGATIVE); PROTEIN,URINE DIPSTICK 1+ (NEGATIVE); URINE UROBILINOGEN 0.2 mg/dL (0.2 - 1)
[2018-10-20 11:51] VITALS: BP 174/80
--- NOTE | 2018-10-20 11:51 | NUR ---
Received pt from ER at this time. Pt came to floor on bed. 0 s/s of acute distress noted. Breaths are even and unlabored. Denies any pain at this time. Pt was admitted for colitis, hypoglycemia. Dr. Herbert was notified of pt arrival to floor.
[2018-10-20 12:00] LABS: BACTERIA,URINE FEW /HPF; EPITHELIAL CELLS,URINE FEW /LPF; RBC,URINE 0-5 /HPF (0-5); WBC,URINE (MAN) >50 /HPF (0-5); YEAST,URINE MANY
--- NOTE | 2018-10-20 15:18 | NUR ---
Wound consultation completed. Patient with discoloration and old scarring from previous ulceration to sacrum. No open wound at this time. Small scabs to L pierre, dry and stable. L heel Unstageable- dry stable eschar. No s/s of infection. no drainage, erythema or odor. R foot wound on plantar foot appears to be diabetic foot ulcer. Patient has Charcot joint. WBC is elevated, but wounds are asymtomatic. Tyron feet warm to touch unable to palpate pulses. Capillary refill < 3, Stocking feet as regards to hairgrowth. Recommendations: UA R heel ucler wash foot with soap and water. apply venelex to the renu wound skin. Cover with kerlix. -Daily R foot ulcer, diabetic Full thickness: cleanse with Normal Saline, pack with purecol daily Wrap with Kerlix elevate heels off of the bed with pillows. /heel protectors. Allevyn foam to sacrum for protection change PrN. Alternating pressure relief mattress Encourage turning. Out of bed for meals.
[2018-10-20 16:00] VITALS: BP 158/70
[2018-10-20] MEDS ORDERED: LEVOFLOXACIN 500MG/D5W 100ML 100 ML IV SCH (16:00)
[2018-10-20] MEDS ORDERED: SODIUM CHLORIDE 0.9% 250ML 250 ML ONE (16:04)
[2018-10-20] MEDS: HYDRALAZINE HCL 25 MG TAB PO SCH ×2 (16:24→21:48)
[2018-10-20] MEDS: BUMETANIDE 1 MG TAB PO SCH (16:24)
[2018-10-20] MEDS: METOPROLOL TARTRATE 50 MG TAB PO SCH (16:25)
[2018-10-20] MEDS: TRAMADOL HCL 50 MG TAB PO SCH (16:25)
[2018-10-20] MEDS: POTASSIUM CHLORIDE 20 MEQ TAB CR PO SCH (16:25)
[2018-10-20] MEDS ORDERED: FLUCONAZOLE 100 MG TAB PO NR (17:00)
[2018-10-20] MEDS: TACROLIMUS 1 MG CAP PO SCH (17:53)
[2018-10-20 20:00] VITALS: BP 188/104
[2018-10-20] MEDS: ONDANSETRON HCL INJ 2MG/ML 2ML 2 MG/ML VIAL IV PRN (20:23)
[2018-10-20] MEDS ORDERED: DIPHENHYDRAMINE HCL 25 MG CAP PO PRN (21:00)
[2018-10-20] MEDS: LATANOPROST(OPTH) 2.5 ML BTL OP SCH (21:48)
[2018-10-20] MEDS: METRONIDAZOLE 500MG/NS 100ML 100 ML IV SCH (21:49)
[2018-10-20 21:58] VITALS: BP 188/104
--- NOTE | 2018-10-20 23:37 | Consultation ---
DATE OF CONSULTATION: CHIEF COMPLAINT: Diarrhea. HISTORY OF PRESENT ILLNESS: Very pleasant 63-year-old man, comes with diarrhea coming from the colostomy. He had a history of kidney transplant. He is on Prograf. The patient has minimal abdominal pain. He feels weak. CAT scan showed thickening of the ascending colon consistent with colitis. Denies blood in the stool. PAST MEDICAL HISTORY: Diabetes, hypertension, and kidney transplant. PAST SURGICAL HISTORY: Colostomy and kidney surgery. FAMILY HISTORY: Noncontributory. REVIEW OF SYSTEMS: Negative except for current history. MEDICATIONS: Prograf. Other medications see list. PHYSICAL EXAMINATION: VITAL SIGNS: Blood pressure 140/80, pulse rate 70, and temperature 98. GENERAL: Well-nourished white man, in no distress. HEENT: Some pallor. HEART: Regular rate. LUNGS: Clear. ABDOMEN: Soft and nontender. EXTREMITIES: No edema. ASSESSMENT AND PLAN: Diarrhea. The patient appears to have acute colitis, cannot rule out Clostridium difficile. I will recommend Flagyl and Levaquin. Stool studies including Clostridium difficile on faecal calprotectin. Follow closely. Calvin Smith MD HSO/MODL /[id number] cc: Raul Herbert MD
[2018-10-21] VITALS (9 sets, daily range): BP systolic 134–172; BP diastolic 64–81
[2018-10-21] MEDS: ONDANSETRON HCL INJ 2MG/ML 2ML 2 MG/ML VIAL IV PRN ×5 (00:31→21:50)
[2018-10-21] MEDS: TRAMADOL HCL 50 MG TAB PO SCH ×5 (06:00→23:40)
[2018-10-21] MEDS: MORPHINE SULFATE INJ 4 MG/ML INJ 1ML IV PRN ×3 (06:06→14:27)
[2018-10-21] MEDS: METRONIDAZOLE 500MG/NS 100ML 100 ML IV SCH ×3 (06:06→21:40)
--- NOTE | 2018-10-21 07:00 | NUR ---
BEDSIDE SHIFT REPORT RECEIVED FROM ED BUCHANAN. PT DENIES NEEDS AT THIS TIME.
[2018-10-21] MEDS: POTASSIUM CHLORIDE 20 MEQ TAB CR PO SCH ×3 (08:33→16:59)
[2018-10-21] MEDS: BRIMONIDINE/TIMOLOL (OPTH SOLN 5 ML DRPETTE OP SCH (08:33)
[2018-10-21] MEDS: FERROUS SULFATE 325 MG TAB PO SCH (08:33)
[2018-10-21] MEDS: HYDRALAZINE HCL 25 MG TAB PO SCH ×3 (08:33→21:51)
[2018-10-21] MEDS: FLUCONAZOLE 100 MG TAB PO SCH (08:33)
[2018-10-21] MEDS: BUMETANIDE 1 MG TAB PO SCH (08:33)
[2018-10-21] MEDS: ZINC ACETATE TOP SCH (08:34)
[2018-10-21] MEDS: [UNRECOGNIZED DRUG - OTHER] TOP SCH (08:34)
[2018-10-21] MEDS: MAGNESIUM OXIDE 400 MG TAB PO SCH (08:34)
[2018-10-21] MEDS: TACROLIMUS 1 MG CAP PO SCH ×2 (08:34→17:01)
[2018-10-21] MEDS: PREDNISONE 5 MG TAB PO SCH (08:34)
[2018-10-21] MEDS: CALCITRIOL 0.25 MCG CAP PO SCH (08:34)
[2018-10-21] MEDS: METOPROLOL TARTRATE 50 MG TAB PO SCH ×2 (08:34→17:00)
[2018-10-21] MEDS: BALSAM PERU/CASTOR OIL 60 GM OINT...G. TP SCH (08:34)
[2018-10-21] MEDS: VANCOMYCIN 250MG/5ML ORAL SOLN PO SCH ×2 (16:57→21:40)
[2018-10-21] MEDS: WARFARIN SOD 1 MG TAB PO SCH (17:01)
[2018-10-21] MEDS: LATANOPROST(OPTH) 2.5 ML BTL OP SCH (21:51)
[2018-10-22] VITALS (7 sets, daily range): BP systolic 166–207; BP diastolic 79–108
[2018-10-22] MEDS: ONDANSETRON HCL INJ 2MG/ML 2ML 2 MG/ML VIAL IV PRN ×5 (01:07→22:20)
[2018-10-22] MEDS: MORPHINE SULFATE INJ 4 MG/ML INJ 1ML IV PRN ×5 (01:08→22:10)
[2018-10-22] MEDS: VANCOMYCIN 250MG/5ML ORAL SOLN PO SCH ×3 (05:15→21:51)
[2018-10-22] MEDS: TRAMADOL HCL 50 MG TAB PO SCH ×3 (05:15→17:09)
[2018-10-22] MEDS: METRONIDAZOLE 500MG/NS 100ML 100 ML IV SCH ×3 (05:15→21:51)
[2018-10-22 05:41] LABS: BASOPHILS # (AUTO) 0.1 (0.0-0.1); BASOPHILS % 0.3 % (0.0-1.0); HEMATOCRIT 27.9 % (38.2-49.6); HEMOGLOBIN 9.2 g/dL (14.0-18.0); LYMPHOCYTES # (AUTO) 0.7 (1.0-3.2); LYMPHOCYTES % 3.9 % (18.0-39.1); MEAN CORPUSCULAR HEMOGLOBIN 31.2 pg (28-32); MEAN CORPUSCULAR VOLUME 94.6 fL (81-99); MONOCYTES # (AUTO) 0.7 (0.2-0.8); MONOCYTES % 3.7 % (4.4-11.3); NEUTROPHILS # (AUTO) 15.2 (2.1-6.9); NEUTROPHILS % 85.5 % (38.7-80.0); PLATELET COUNT 340 x10e3/uL (140-360); RED BLOOD COUNT 2.95 x10e6/uL (4.3-5.7)
[2018-10-22 06:03] LABS: ANION GAP 22.6 mmol/L (8-16); CALCIUM 8.8 mg/dL (8.4-10.2); CREATININE, SERUM 3.36 mg/dL (0.72-1.25); POTASSIUM 4.6 mmol/L (3.5-5.1)
--- NOTE | 2018-10-22 07:00 | NUR ---
BEDSIDE SHIFT REPORT RECEIVED FROM ENVIRONMENTAL SERVICES PROJECT MANAGER RN. PT DENIES NEEDS AT THIS TIME.
[2018-10-22] MEDS: POTASSIUM CHLORIDE 20 MEQ TAB CR PO SCH (08:00)
[2018-10-22] MEDS ORDERED: COLLAGENASE 5 GM TUBE TOP PRN (08:30)
[2018-10-22] MEDS ORDERED: SODIUM CHLORIDE 0.9% 1000ML 1,000 ML IV SCH (08:30)
[2018-10-22] MEDS: HYDRALAZINE HCL 25 MG TAB PO SCH ×3 (08:42→21:52)
[2018-10-22] MEDS: FERROUS SULFATE 325 MG TAB PO SCH (08:42)
[2018-10-22] MEDS: BRIMONIDINE/TIMOLOL (OPTH SOLN 5 ML DRPETTE OP SCH (08:42)
[2018-10-22] MEDS: FLUCONAZOLE 100 MG TAB PO SCH (08:42)
[2018-10-22] MEDS: TACROLIMUS 1 MG CAP PO SCH ×2 (08:43→17:06)
[2018-10-22] MEDS: MAGNESIUM OXIDE 400 MG TAB PO SCH (08:43)
[2018-10-22] MEDS: PREDNISONE 5 MG TAB PO SCH (08:43)
[2018-10-22] MEDS: METOPROLOL TARTRATE 50 MG TAB PO SCH ×2 (08:43→17:06)
[2018-10-22] MEDS: ZINC ACETATE TOP SCH (08:44)
[2018-10-22] MEDS: BALSAM PERU/CASTOR OIL 60 GM OINT...G. TP SCH (08:44)
[2018-10-22] MEDS: [UNRECOGNIZED DRUG - OTHER] TOP SCH (08:44)
[2018-10-22] MEDS ORDERED: POTASSIUM CHLORIDE 10MEQ EA PO SCH (12:00)
[2018-10-22] MEDS: SODIUM BICARBONATE 8.4% SYRING 150 ML in DEXTROSE 5% 1,000 ML IV SCH (12:00)
--- NOTE | 2018-10-22 14:48 | Consultation ---
DATE OF CONSULTATION: 10/22/2018 REASON FOR CONSULTATION: Multiple ulcerations to both lower extremities with patient being diabetic with neuropathy with a Charcot foot. HISTORY OF PRESENT ILLNESS: This is a pleasant 63-year-old male, who was seen at bedside, accompanied by spouse, who relates he came in with abdominal pain, was found to have C. difficile. The patient's past medical is remarkable for insulin-dependent diabetes x22 years, hypertension, has had nonhealing ulcerations to both lower extremities for more than 4 to 5 months now. He is denying any history of fever, chills, nausea, or vomiting at this point. PAST MEDICAL HISTORY: As described above. PAST SURGICAL HISTORY: Kidney transplant back in 2013, left shoulder surgery, and cataract surgery. ALLERGIES: THE PATIENT DENIES. SOCIAL HISTORY: Denies any smoking, drinking, or recreational drug use. Did smoke 1/2 packs for 20 plus years approximately 20 years ago. FAMILY HISTORY: Remarkable for diabetes. CURRENT MEDICATIONS: Note listed in chart including IV vancomycin. REVIEW OF SYSTEMS: CARDIAC: Denies any palpitations or arrhythmias. RESPIRATORY: Denies any shortness of breath or productive cough. GASTROINTESTINAL: Denies any diarrhea or constipation. GENITOURINARY: Denies any problems voiding. PHYSICAL EXAMINATION: VITAL SIGNS: Afebrile, pulse rate 79, respirations 18, blood pressure 190/83, and O2 saturation 96%. Podiatric physical examination reveals the following: VASCULATURE: Pedal pulses, both the DP and PT are palpable. CFT to all toes less than 4 seconds. NEUROLOGICAL: Reveals complete loss of protective sensation when utilizing Chappell-Jose 5.07 monofilament wire. MUSCULOSKELETAL: Shows muscle mass to be symmetrical and wasted. Muscle strength to be 3 to 4/5 to all muscle groups. DERMATOLOGICAL: Shows grade 3 ulceration, plantar aspect right foot tracking down to plantar fascia approximately 1 cm deep with some drainage, measuring approximately 1.5 cm in diameter. Ulceration to the left heel is down to subcutaneous tissue, measuring more than 3 to 4 cm in diameter with a black eschar. Negative foul smell present. LABORATORY DATA: Labs noted, has a white blood cell count of 17.7, hemoglobin 9.2 with a platelet count of 340. Has a blood glucose of 203. ASSESSMENT: Grade 3 ulcer, diabetic neuropathy, grade 3 ulcer right, grade 2 ulcer left with Charcot foot. PLAN: After proper consent of the patient with being present under no anesthesia secondary to his diabetic neuropathy, ulcerations to both lower extremities were debrided down to muscle and subcutaneous tissue respectively. Devitalized tissue sharply excised until good viable bleeding tissue was achieved via use of a sterile 10 blade. Deep cultures were taken of the right lower extremity for aerobic and anaerobic growth. Following the debridement, the ulcers were approximately 1.5 to 2 cm in diameter to the right lower extremity and more than 4 to 5 cm in diameter to the left heel. Some bleeding tissue was achieved. Sterile dressing was applied. We will start applying Santyl collagenase followed by diluted wet-to-dry Betadine. Continue IV antibiotics. Continue offloading. We will continue to follow. Prognosis guarded secondary to the patient being mostly bed-bound and was instructed needs to keep his Prevalon boots on at all times, not only when he is sleeping. We will treat conservatively with local IV and local wound care for now. May end up needing surgical debridement including bone debridement down the road, possible amputation if not responsive down the road. MELANIA Taylor/MARA /[id number]
[2018-10-22] MEDS: CLONIDINE HCL 0.1 MG TAB PO SCH ×2 (15:22→21:51)
--- NOTE | 2018-10-22 15:23 | Consultation ---
DATE OF CONSULTATION: 10/22/2018 HISTORY OF PRESENT ILLNESS: A 63-year-old gentleman, underlying history of cataract and renal transplant with chronic rejection, multiple comorbidities including nonhealing foot ulcers, diabetes, retinopathy, neuropathy, cardiovascular disease with history of poorly controlled hypertension, on blood thinners in the form of Coumadin, maintained on prednisone 5 mg daily as well as Tacrolimus 2 mg p.o. twice a day. Presented with several day history of diarrhea, nausea, and vomiting. He denies any cough, fever, or chills. by bedside. LABORATORY TESTS: Shows INR 1.41. Sodium 128, potassium 4.6, chloride 92, bicarbonate 18, BUN 79, and creatinine 3.36. White count 17.7 and hemoglobin 9.2. His workup included chest x-ray, please see official report, shows pulmonary edema and cardiomegaly. No significant change. CT abdomen and pelvis, this was done without contrast, shows infectious inflammatory colitis involving the cecum and ascending colon improvement and still moderate bilateral pleural effusion. Negative renal atrophy, right lower quadrant kidney transplant without hydronephrosis, severe atherosclerosis. Stool for C. difficile was done and is positive. CURRENT MEDICATIONS: The patient is on Levaquin, which has been stopped, metronidazole 500 mg IV q.8, normal saline at 100 mL an hour, which I am going to stop. He is on Bumex 2 mg p.o. b.i.d., which has been held, Rocaltrol 0.5 mg p.o. Friday, Friday, and Friday. He is on diphenhydramine p.r.n., ferrous sulfate 325 mg daily, Diflucan 100 mg p.o. daily, hydralazine 100 mg p.o. t.i.d. He is on Xalatan 1 drop in the eyes at bedtime, Mag oxide 1 mg daily, metoprolol 50 mg p.o. b.i.d., morphine sulfate p.r.n., ondansetron p.r.n. He is on potassium chloride 10 mEq p.o. t.i.d. He is on tramadol p.r.n., Coumadin 1 mg p.o. daily, prednisone 5 mg daily, and Tacrolimus 2 mg p.o. b.i.d. ALLERGIES: NO APPARENT DRUG ALLERGIES. SOCIAL HISTORY: Does not smoke or drink. PHYSICAL EXAMINATION: GENERAL: The patient is awake and alert, lying supine, in no apparent distress. VITAL SIGNS: Blood pressure 190/83, pulse rate 79, afebrile, respiratory rate 18, and oxygen saturation 96%. HEAD AND NECK: Cornea clear. Oral mucosa dry. Neck veins flat. LUNGS: Rales noted right lower and mid third, left lung lamas are relatively clear. HEART: S1 and S2 audible. ABDOMEN: Otherwise soft and nontender. No apparent visceromegaly. EXTREMITIES: Lower extremity examination shows no edema. Dressing noted on both feet. IMPRESSION: 1. Goycv-wg-sxijvka kidney failure, transplantation with chronic rejection, now with distal renal tubular acidosis. 2. Anemia, multifactorial. 3. Clostridium difficile colitis in isolation. 4. Hyponatremia, multifactorial. PLAN: Discontinue existing IV fluid and discontinuing potassium chloride. He is hypertensive and acidotic. We will start sodium bicarbonate by mouth, IV bicarbonate 50 mL an hour. Obtain a BNP level stat. Obtain 24-hour urine creatinine clearance and protein, serum uric acid level. Start clonidine 0.1 mg p.o. t.i.d. We will obtain uric acid level. Discussed with . All questions answered. Overall prognosis is extremely poor. MD CHIQUI Smalls/MARA /[id number]
[2018-10-22] MEDS: WARFARIN SOD 1 MG TAB PO SCH (17:05)
[2018-10-22] MEDS: SODIUM BICARBONATE 650 MG TAB PO SCH (17:08)
[2018-10-22] MEDS: LATANOPROST(OPTH) 2.5 ML BTL OP SCH (21:46)
[2018-10-23] VITALS (8 sets, daily range): BP systolic 101–172; BP diastolic 41–92
[2018-10-23] MEDS: ONDANSETRON HCL INJ 2MG/ML 2ML 2 MG/ML VIAL IV PRN ×5 (00:14→21:15)
[2018-10-23] MEDS: MORPHINE SULFATE INJ 4 MG/ML INJ 1ML IV PRN ×5 (00:14→21:15)
[2018-10-23] MEDS: TRAMADOL HCL 50 MG TAB PO SCH ×4 (04:34→17:16)
[2018-10-23] MEDS: METRONIDAZOLE 500MG/NS 100ML 100 ML IV SCH ×3 (05:12→22:00)
[2018-10-23] MEDS: VANCOMYCIN 250MG/5ML ORAL SOLN PO SCH ×3 (05:12→22:00)
[2018-10-23 06:10] LABS: ALBUMIN 2.6 g/dL (3.5-5.0); ANION GAP 27.1 mmol/L (8-16); CALCIUM 8.2 mg/dL (8.4-10.2); POTASSIUM 5.1 mmol/L (3.5-5.1)
--- NOTE | 2018-10-23 07:00 | NUR ---
BEDSIDE SHIFT REPORT RECEIVED FROM VALUE ANALYST RN. PT DENIES NEEDS AT THIS TIME.
--- NOTE | 2018-10-23 07:05 | NUR ---
DR. RANGEL AT PT'S BEDSIDE.
[2018-10-23] MEDS: BRIMONIDINE/TIMOLOL (OPTH SOLN 5 ML DRPETTE OP SCH (09:34)
[2018-10-23] MEDS: HYDRALAZINE HCL 25 MG TAB PO SCH ×3 (09:35→21:00)
[2018-10-23] MEDS: TACROLIMUS 1 MG CAP PO SCH ×2 (09:36→17:16)
[2018-10-23] MEDS: [UNRECOGNIZED DRUG - OTHER] TOP SCH (09:36)
[2018-10-23] MEDS: CALCITRIOL 0.25 MCG CAP PO SCH (09:36)
[2018-10-23] MEDS: FLUCONAZOLE 100 MG TAB PO SCH (09:36)
[2018-10-23] MEDS: ZINC ACETATE TOP SCH (09:36)
[2018-10-23] MEDS: METOPROLOL TARTRATE 50 MG TAB PO SCH ×2 (09:36→17:16)
[2018-10-23] MEDS: MAGNESIUM OXIDE 400 MG TAB PO SCH (09:36)
[2018-10-23] MEDS: CLONIDINE HCL 0.1 MG TAB PO SCH ×3 (09:36→21:00)
[2018-10-23] MEDS: SODIUM BICARBONATE 650 MG TAB PO SCH ×2 (09:36→17:16)
[2018-10-23] MEDS: PREDNISONE 5 MG TAB PO SCH (09:36)
[2018-10-23] MEDS: BALSAM PERU/CASTOR OIL 60 GM OINT...G. TP SCH (09:37)
[2018-10-23] MEDS: SODIUM BICARBONATE 8.4% SYRING 150 ML in DEXTROSE 5% 1,000 ML IV SCH (12:08)
[2018-10-23] MEDS: METOCLOPRAMIDE HCL 10 MG/2ML VIAL IV SCH ×3 (12:08→21:00)
--- NOTE | 2018-10-23 12:53 | NUR ---
EDUCATED ABOUT IMM, SIGNED, FILED IN CHART, WITH COPY LEFT WITH FAMILY AT BEDSIDE.
--- NOTE | 2018-10-23 13:07 | Progress Note ---
DATE: 10/23/2018 SUBJECTIVE: The patient seen at bedside, accompanied by spouse. Having some abdominal pain. Denies any history of fever, chills, nausea, or vomiting. OBJECTIVE: VITAL SIGNS: Afebrile, pulse rate 49, respirations 18, blood pressure 172/63, and O2 saturation 99%. EXTREMITIES: Ulceration is looking somewhat better. Dressings are dry and intact. Skin temperature warm to touch. Pedal pulses are palpable. ASSESSMENT: Grade 3 ulcer right, grade 2 ulcer left, healing slowly. PLAN: We will continue Santyl followed by diluted wet-to-dry. Continue offloading as best as possible with Prevalon boots. Continue to follow and treat conservatively with IV vancomycin and local wound care and offloading. MELANIA Taylor/MARA /[id number]
[2018-10-23] MEDS ORDERED: ALBUMIN 5% 0.05 GM/ML BTL IV ONE (15:30)
[2018-10-23] MEDS ORDERED: ALBUMIN 5% 250ML 500 ML IV ONE (15:45)
--- NOTE | 2018-10-23 16:27 | NUR ---
Nutrition Intervention Note RD Recommendation(s) for Physician: -Liberalize diet to regular as medically appropriate (pt with very poor meal intake) -Rec Glucerna TID to increase protein-calorie intake -Rec appetite stimulant to increase PO intake -Rec MVi w/minerals and vitamin C for wound healing -The patient meets criteria for MODERATE protein-calorie malnutrition. Plan of Care: RD following, monitoring for tolerance and adequacy Nutrition reason for involvement: MD consult no reason stated RD Assessment (10/23) 63yo M, who was admitted for colitis. CT abd/pel revealed infectious or inflammatory colitis involving the cecum and ascending colon, without bowel obstruction. Pt was well known to me from his multiple admissions in the past. Pt was on isolation for C diff. Visited pt in the room. Per , pt has been eating well up to 1 week ago, when pt started to develop nausea, vomiting and diarrhea. Pt stated I cant even smell the foods. Attempted to obtain food preferences, pt stated he only wanted to drink Glucerna. Renal function has declined. K has been trending up (5.1 WNL). Discussed menu options with pt and . Pt has some moderate fat/muscle loss upon observation. Estimated of 30-40lbs weight loss in the last 6 months if admission weight is taken correctly. Will continue to monitor and follow. Principal Problems/Diagnoses: colitis, diabetic foot ulcer, yaeug-gd-huhpjnu kidney failure, transplantation with chronic rejection, now with distal renal tubular acidosis PMH: diabetes, hypertension, cadaveric kidney transplant on immunosuppressive medications, history of congestive heart failure, diabetic neuropathy, nephropathy, history of colostomy, diabetic foot ulcer, stage 3 to 4 kidney failure GI: abdomen soft, non-tender, round, flatus present, liquid foamy green stool 10/23, + colostomy Skin: diabetic foot ulcers Labs: (10/23) Na 127 L, BUN 90 H, Creatinine 4.00 H, Glucose 357 H, uric acid 11.3 H, Ca 8.2 L Meds: vancomycin, reglan, sodium bicarb, zofran, prednisone, Mg oxide, vitamin D Ht: 67in Wt: 145lb BMI: 22.7kg/m2 IBW: 148lb +/- 10% Malnutrition Evaluation (10/23/2018) The patient meets criteria for MODERATE protein-calorie malnutrition. Energy intake: <75% of estimated energy requirements for >3 months Weight loss: >10% in 6 months (Chronic) Fat loss: Moderate clavicle protrusion Muscle loss: Moderate temporal depression Supporting Evidence: Fluid accumulation: unable to evaluate Functional Status: reduced Nutrition Prescription (Diet Order): renal diabetic with Glucerna BID Estimated Nutritional Needs: Calories: 1650 2310kcal (25-35kcal) Weight used: CBW Protein: 66 99g(1.0-1.5g/kg/d) Weight used: CBW Diet Adequacy: Not meeting calorie needs, Not meeting protein needs Diet Education Needs Assessment: Diet education indicated, but patient not appropriate for education at this time. Nutrition Care Level: mod Nutrition Diagnosis: Moderate malnutrition related to inadequate energy intake as evidenced by <75% of estimated energy requirements for >3 months, >10% weight loss in 6 months (Chronic) as well as moderate fat/ muscle loss. Goal: Patient will meet 75-100% of estimated needs by follow up Progress: Not Progressing Interventions: Modified diet, Commercial beverage, Prescription medication Monitoring/Evaluation: Total energy intake, Total protein intake, Prescription medication, Modified diet, Liquid supplement, Weight change Signed: Suyapa Rose, MS, RD, LD
[2018-10-23 16:28] LABS: ALBUMIN 2.6 g/dL (3.5-5.0); ANION GAP 26.1 mmol/L (8-16); CREATININE, SERUM 4.2 mg/dL (0.72-1.25); POTASSIUM 5.1 mmol/L (3.5-5.1)
[2018-10-23] MEDS: WARFARIN SOD 1 MG TAB PO SCH (17:15)
--- NOTE | 2018-10-23 17:56 | NUR ---
PT'S BG DISCUSSED WITH DR. PRO. DR. CHAND CALLED FOR CONSULT. DR. CHA CALLED AND NOTIFIED OF NEED FOR BG COVERAGE.
--- NOTE | 2018-10-23 19:00 | NUR ---
BS rounds completed with morning nurse. Pt alert and orient to name. Lying in bed with left foot elevated with boot. Pt states pain is stable now. Family at bedside. Call cobos within reach. Will continue to monitor.
[2018-10-23] MEDS: LATANOPROST(OPTH) 2.5 ML BTL OP SCH (21:00)
[2018-10-23] MEDS: INSULIN LISPRO 100 UNIT/1 ML 3ML VIAL SQ SCH (21:00)
[2018-10-24] VITALS (8 sets, daily range): BP systolic 113–157; BP diastolic 46–76
[2018-10-24] MEDS: MORPHINE SULFATE INJ 4 MG/ML INJ 1ML IV PRN ×6 (01:30→23:30)
[2018-10-24] MEDS: ONDANSETRON HCL INJ 2MG/ML 2ML 2 MG/ML VIAL IV PRN ×5 (01:30→23:30)
[2018-10-24] MEDS: METRONIDAZOLE 500MG/NS 100ML 100 ML IV SCH ×3 (05:22→22:00)
[2018-10-24] MEDS: VANCOMYCIN 250MG/5ML ORAL SOLN PO SCH ×3 (06:00→22:00)
[2018-10-24] MEDS: TRAMADOL HCL 50 MG TAB PO SCH ×4 (06:08→17:19)
[2018-10-24 06:24] LABS: HEMATOCRIT 24.6 % (38.2-49.6); HEMOGLOBIN 8.2 g/dL (14.0-18.0); MEAN CORPUSCULAR HEMOGLOBIN 31.3 pg (28-32); MEAN CORPUSCULAR HGB CONC 33.3 g/dL (31-35); MEAN CORPUSCULAR VOLUME 93.9 fL (81-99); RED BLOOD COUNT 2.62 x10e6/uL (4.3-5.7)
[2018-10-24 06:25] LABS: BASOPHILS # (AUTO) 0.1 (0.0-0.1); BASOPHILS % 0.3 % (0.0-1.0); LYMPHOCYTES # (AUTO) 0.7 (1.0-3.2); LYMPHOCYTES % 3.2 % (18.0-39.1); MONOCYTES # (AUTO) 0.8 (0.2-0.8); MONOCYTES % 3.9 % (4.4-11.3); NEUTROPHILS # (AUTO) 18.7 (2.1-6.9); NEUTROPHILS % 87.6 % (38.7-80.0); PLATELET COUNT 261 x10e3/uL (140-360)
--- NOTE | 2018-10-24 06:29 | NUR ---
PT LYING RIGHT SIDE IN BED. C/O BILATERAL HIP PAIN. SCHEDULED TRAMADOL GIVEN.
[2018-10-24 06:38] LABS: INR 4.48
[2018-10-24 06:41] LABS: PROTHROMBIN TIME 43.4 seconds (11.9-14.5)
[2018-10-24 06:48] LABS: ALBUMIN/GLOBULIN RATIO 1.2 (0.8-2.0); ANION GAP 19.9 mmol/L (8-16); CALCIUM 8.1 mg/dL (8.4-10.2); CREATININE, SERUM 4.37 mg/dL (0.72-1.25); POTASSIUM 4.9 mmol/L (3.5-5.1)
--- NOTE | 2018-10-24 07:00 | NUR ---
Pt received resting in bed with at bedside. Alert and oriented x4, on contact isolation due to MRSA, MDRO & C. Diff. Pt with right forearm saline lock. Oriented to staff and surroundings. Encouraged to press call cobos if help needed. Call cobos within reach. Will monitor
[2018-10-24] MEDS ORDERED: INSULIN GLARGINE 100 UNITS/ML VIAL SQ SCH ×2 (07:30→10:00)
[2018-10-24 07:42] LABS: BAND NEUTROPHILS % (MANUAL) 3 %; LYMPHOCYTES % (MANUAL) 7 % (19-48); MONOCYTES % (MANUAL) 4 % (3.4-9.0); NEUTROPHILS % (MANUAL) 86 % (40-74)
[2018-10-24 07:43] LABS: PLATELET ESTIMATE ADEQUATE; PLATELET MORPHOLOGY COMMENT NORMAL; RBC MORPHOLOGY COMMENT NORMAL
[2018-10-24] MEDS: HYDRALAZINE HCL 25 MG TAB PO SCH ×3 (09:00→21:00)
[2018-10-24] MEDS: [UNRECOGNIZED DRUG - OTHER] TOP SCH (09:00)
[2018-10-24] MEDS: ZINC ACETATE TOP SCH (09:00)
[2018-10-24] MEDS: METOPROLOL TARTRATE 50 MG TAB PO SCH ×2 (09:00→17:00)
[2018-10-24] MEDS: METOCLOPRAMIDE HCL 10 MG/2ML VIAL IV SCH ×4 (09:10→21:00)
--- NOTE | 2018-10-24 09:10 | NUR ---
All meds given as order. Colostomy bag washed out and emptied. Emotional support given. Will monitor
[2018-10-24] MEDS: INSULIN LISPRO 100 UNIT/1 ML 3ML VIAL SQ SCH ×5 (09:11→21:00)
[2018-10-24] MEDS: CLONIDINE HCL 0.1 MG TAB PO SCH ×3 (09:11→21:00)
[2018-10-24] MEDS: FLUCONAZOLE 100 MG TAB PO SCH (09:11)
[2018-10-24] MEDS: BRIMONIDINE/TIMOLOL (OPTH SOLN 5 ML DRPETTE OP SCH (09:11)
[2018-10-24] MEDS: MAGNESIUM OXIDE 400 MG TAB PO SCH (09:12)
[2018-10-24] MEDS: SODIUM BICARBONATE 650 MG TAB PO SCH ×2 (09:12→17:19)
[2018-10-24] MEDS: PREDNISONE 5 MG TAB PO SCH (09:12)
[2018-10-24] MEDS: BALSAM PERU/CASTOR OIL 60 GM OINT...G. TP SCH (09:12)
[2018-10-24] MEDS: TACROLIMUS 1 MG CAP PO SCH ×2 (09:12→17:19)
--- NOTE | 2018-10-24 13:03 | Consultation ---
DATE OF CONSULTATION: REASON FOR CONSULTATION: Sepsis. HISTORY OF PRESENT ILLNESS: This patient, who is a 63-year-old white male, well known to me, history of renal transplant on Prograf, comes in with abdominal pain. The patient also has history of colostomy. Because of abdominal pain, not doing well. The patient was admitted on October 20. He has been seen by GI. He has been seen by Podiatry and Renal. The patient, who also have multiple ulcers on lower extremities, Charcot joint, neuropathy, and osteomyelitis before. The patient had diabetes mellitus, history of neuropathy, hypertension, and multiple complications of diabetes. He comes in with abdominal pain. When he first came, his white count was 13.3 and hemoglobin 9.1. His white count today is 21.3 and hemoglobin of 8.2. His C. difficile was positive. The patient has been started on Prograf, prednisone 5 mg daily, Catapres, Diflucan, vancomycin p.o., and Flagyl IV. The patient is telling me that since he came here, he is feeling better. No new complaints. His diarrhea has improved. PHYSICAL EXAMINATION: GENERAL: He is currently alert and oriented, does not seem to be in acute distress. VITAL SIGNS: Stable. Currently afebrile. HEENT: He is not icteric. NECK: Supple. No JVD. No lymphadenopathy. No thyromegaly. CHEST: Clear. HEART: S1 and S2. No S3, S4, or murmur. ABDOMEN: Soft. Bowel sounds present. No tenderness. EXTREMITIES: No edema. Had a colostomy, but the bag is empty. IMPRESSION: 1. Clostridium difficile colitis. Clinically looks better. 2. Leukocytosis is getting worse. Would recommend to recheck the CT scan since he is immunocompromise while we continue checking the CBC and obtain blood culture. We will follow. MD AMI Toney/MARA /[id number]
--- NOTE | 2018-10-24 13:50 | NUR ---
Dressing change done to both feet as per Dr. Barrera
--- NOTE | 2018-10-24 15:49 | NUR ---
Pt questioning if he can have PO contrast. Dr. Barbi Michaels stated that pt can have PO contrast NO ORAL. Pt aware of same. Will monitor
[2018-10-24] MEDS: SODIUM BICARBONATE 8.4% SYRING 150 ML in DEXTROSE 5% 1,000 ML IV SCH (16:15)
[2018-10-24] MEDS ORDERED: DIATRIZOATE MEGL/DIATRIZOA SOD 30 ML BTL PO ONE (16:30)
[2018-10-24 16:46] LABS: CHOL/HDL RATIO 3.2 (3.9-4.7)
[2018-10-24] MEDS: WARFARIN SOD 1 MG TAB PO SCH (17:00)
[2018-10-24 17:08] LABS: FREE T4 (FREE THYROXINE) 1.3 ng/dL (0.8-1.8); THYROID STIMULATING HORMONE 3.937 uIU/mL (0.350-4.940)
[2018-10-24] MEDS: FAMOTIDINE 20 MG TAB PO SCH (17:18)
--- NOTE | 2018-10-24 17:44 | Progress Note ---
DATE: 10/24/2018 SUBJECTIVE: Mr. Rios has noted decreased diarrhea, however, he now complains of some odynophagia and pain when swallowing. PHYSICAL EXAMINATION: Unremarkable. He appears to be anicteric. Colostomy seems to be in good condition with no significant stool output. LABORATORY DATA: Today, white count was 21,000, hemoglobin 8.2, hematocrit 24, platelet count was 261, differential with left shift. Electrolytes were normal. Creatinine was slightly elevated at 4.37. Sodium was 127, which is better than before. ASSESSMENT: Middle aged male, immunocompromised secondary to kidney transplant, admitted with Clostridium difficile colitis. The patient is on oral vancomycin and IV metronidazole and is being followed by Infectious Disease. Ostomy output seems to be improved. There is no evidence of oral thrush. PLAN: 1. For now, we will add Famotidine, assuming that some of his esophageal symptoms are related to esophagitis. 2. CT scan apparently will be ordered by Infectious Disease. 3. We will follow. If odynophagia/esophageal symptoms persist, we would consider an upper endoscopy. Kade Varela MD FES/MODL /[id number]
--- NOTE | 2018-10-24 18:15 | Progress Note ---
DATE: 10/24/2018 SUBJECTIVE: The patient at bedside, accompanied by daughter. In no apparent distress, feeling little bit better. Denies any history of fever, chills, nausea, or vomiting. OBJECTIVE: VITAL SIGNS: Afebrile, pulse rate 53, respirations 17, blood pressure 157/65, and O2 saturation 100%. EXTREMITIES: Ulcerations to both lower extremity inspected. Negative drainage. Negative foul smell. Has a grade 3 ulcer of the right lower extremity, grade 2 ulcer left. Grade 3 ulcer measuring 1.5 to 2 cm in diameter, mid arch region secondary to Charcot foot deformity with possible osteomyelitis with a grade 2 ulcer left heel measuring more than 4 to 5 cm in diameter. Superficial necrosis noted down the dermis and subcutaneous tissue. No muscle or bone visualized. Pedal pulses are palpable. Skin temperature is warm to touch. LABORATORY DATA: Labs noted, has a white blood cell count at 21.3 with a hemoglobin of 8.2 and a platelet count of 261. ASSESSMENT: Charcot foot, grade 3 ulcer right foot, grade 2 ulcer left with negative signs of deep space infection. PLAN: We will continue Santyl followed by diluted wet-to-dry. Continue offloading. We will continue monitoring the patient. We will continue IV antibiotics such as vancomycin. MRSA was also found on his left foot ulceration, sensitive to vancomycin. MELANIA Taylor/MARA /[id number]
--- NOTE | 2018-10-24 18:45 | Diagnostic Imaging Report ---
EXAM: CT Abdomen and Pelvis WITHOUT contrast INDICATION: ^follow up on colitis ^[id number] ^1800 COMPARISON: CT abdomen and pelvis 10/20/2018 TECHNIQUE: Abdomen and pelvis were scanned utilizing a multidetector helical scanner from the lung base to the pubic symphysis without administration of IV contrast. Absence of intravenous contrast decreases sensitivity for detection of focal lesions and vascular pathology. Coronal and sagittal reformations were obtained. Routine protocol was performed. IV CONTRAST: None. ORAL CONTRAST: None RADIATION DOSE: Total DLP: 608 mGy*cm Estimated effective dose: (DLP x 0.015 x size factor) mSv COMPLICATIONS: None FINDINGS: LINES and TUBES: None. LOWER THORAX: Moderate bilateral pleural effusions, mildly increased on the right. Large consolidation in the right lower lobe and a small consolidation in the left lower lobe, worse since prior exam and suggestive of development of aspiration or multifocal pneumonia. Right lower lobe calcified granuloma unchanged. Cardiomegaly. Bilateral pulmonary edema. Diffuse coronary artery calcifications. HEPATOBILIARY: No focal hepatic lesions. No biliary ductal dilation. GALLBLADDER: No radio-opaque stones or sludge. No wall thickening. SPLEEN: No splenomegaly. PANCREAS: No focal masses or ductal dilatation. ADRENALS: No adrenal nodules KIDNEYS/URETERS: Atrophic bilateral kidneys with right lower quadrant transplant kidney, which appears unremarkable. GI TRACT: Severe distention of the stomach. Partial left hemicolectomy with left lower quadrant ileostomy remains unchanged. There has been interval resolution of the inflammatory changes and wall thickening of the cecum and ascending colon. No bowel dilatation or obstruction. The small bowel is decompressed and unremarkable. Appendix not visualized. PELVIC ORGANS/BLADDER: Unremarkable. LYMPH NODES: No lymphadenopathy. VESSELS: Moderate atherosclerotic calcification throughout the abdominal aorta and pelvic arteries without aneurysm. Stable infrarenal IVC filter. Diffuse calcifications of the mesenteric arteries. PERITONEUM / RETROPERITONEUM: No free air or fluid. BONES: Unchanged posttraumatic deformity of multiple posterior left-sided rib fractures. SOFT TISSUES: Anasarca. IMPRESSION: 1. Resolved colitis. 2. Interval development of right greater than left consolidation suggestive of aspiration or pneumonia. 3. Bilateral pulmonary edema. Signed by: Dr. Adriana Fu M.D. on 10/24/2018 6:42 PM
--- NOTE | 2018-10-24 19:00 | Consultation ---
DATE OF CONSULTATION: 10/24/2018 Endocrine consultation The patient of Dr. Herbert and Dr. Collins Kim. Thank you very much for referring this patient. HISTORY OF PRESENT ILLNESS: This is a 63-year-old white male gentleman who was referred to me for evaluation of uncontrolled diabetes mellitus. The patient is a known diabetic for almost 22+ years and takes Tresiba about 20 units once a day. He also was on hemodialysis in the past and had a kidney transplant done about 4 to 5 years back. This time he came to the hospital with history of abdominal pain, nausea, vomiting. He also has multiple foot ulcers and MRSA positive. The patient has a longstanding history of hypertension, chronic atrial fibrillation, hyperlipidemia, end-stage renal failure. He also had a colon resection done and has a colostomy tube. The patient is on several medications at home including Reglan, Tresiba, calcitriol, metoprolol, hydralazine, Coumadin, and prednisone 5 mg once daily. PHYSICAL EXAMINATION: GENERAL: Today, the patient is alert, awake, little bit apprehensive. He looks slightly lethargic. VITAL SIGNS: His heart rate is around 70, blood pressure is 120/80 mmHg. HEENT: Essentially unremarkable. Thyroid is palpable. Clinically, he is near euthyroid. CHEST: Bilateral vesicular breathing. He has mild bronchospasm. CARDIOVASCULAR: First and second heart sounds. There are no third or fourth heart sounds, ejection systolic murmur grade 2/6. ABDOMEN: The patient has a colostomy tube. EXTREMITIES: He also has bilateral foot ulcers. LABORATORY DATA: His blood sugar at the time of admission was low 51, but eventually his blood sugars have been in the ranges of 260 to 390 to 392. His p.o. intake is also low. His other lab shows hemoglobin is 8.2 with a hematocrit of 24.6. His BUN and creatinine are 95 and 4.73. CLINICAL IMPRESSION: Diabetes mellitus type 2, uncontrolled with complications. Hypoglycemia, multifactorial, probably related to decreased oral intake and insulin. End-stage renal disease, status post kidney transplant. Multiple foot ulcers, sepsis. Status post colostomy. PLAN: The plan at this time is to do a hemoglobin A1c, thyroid function test and advance his diet slowly and put him on Humalog and the Lantus combinations. Thank you for referring this patient. I will be following this patient with you. MD MIKAEL Prajapati /[id number]
--- NOTE | 2018-10-24 19:00 | NUR ---
Completed BS rounds with morning nurse. Pt alert and orient to name. Lying in bed with left foot elevated with boot. Pt not c/o pain at this time. Colostomy in place. Family at bedside. Call cobos within reach. Will continue to monitor.
--- NOTE | 2018-10-24 19:20 | NUR ---
Pt resting in bed. Pt educated regarding 24 Hour urine collection which started at 1900. Handoff given to assistant casino shift manager RN
[2018-10-24] MEDS: LATANOPROST(OPTH) 2.5 ML BTL OP SCH (21:00)
--- NOTE | 2018-10-24 23:33 | NUR ---
c/o back and bilateral hip pain. repositioned in bed. prn pain morphine and Zofran given. call cobos within reach. will continue to monitor. at bedside.
[2018-10-25] VITALS (8 sets, daily range): BP systolic 95–155; BP diastolic 50–86
[2018-10-25] MEDS: MORPHINE SULFATE INJ 4 MG/ML INJ 1ML IV PRN ×3 (04:30→13:06)
[2018-10-25] MEDS: ONDANSETRON HCL INJ 2MG/ML 2ML 2 MG/ML VIAL IV PRN ×3 (04:30→13:06)
[2018-10-25] MEDS: METRONIDAZOLE 500MG/NS 100ML 100 ML IV SCH (06:00)
[2018-10-25] MEDS: VANCOMYCIN 250MG/5ML ORAL SOLN PO SCH ×3 (06:00→22:00)
[2018-10-25] MEDS: TRAMADOL HCL 50 MG TAB PO SCH ×4 (06:00→17:30)
[2018-10-25] MEDS ORDERED: INSULIN GLARGINE 100 UNITS/ML VIAL SQ SCH ×3 (06:00→07:30)
[2018-10-25 07:26] LABS: BASOPHILS % 0.1 % (0.0-1.0); EOSINOPHILS % 0.3 % (0.0-6.0); HEMATOCRIT 20.2 % (38.2-49.6); LYMPHOCYTES # (AUTO) 1.1 (1.0-3.2); LYMPHOCYTES % 7.8 % (18.0-39.1); MEAN CORPUSCULAR HEMOGLOBIN 31.3 pg (28-32); MEAN CORPUSCULAR HGB CONC 33.2 g/dL (31-35); MEAN CORPUSCULAR VOLUME 94.4 fL (81-99); MONOCYTES # (AUTO) 0.8 (0.2-0.8); MONOCYTES % 5.5 % (4.4-11.3); NEUTROPHILS # (AUTO) 11.3 (2.1-6.9); NEUTROPHILS % 81.5 % (38.7-80.0); PLATELET COUNT 183 x10e3/uL (140-360); RED BLOOD COUNT 2.14 x10e6/uL (4.3-5.7); RED CELL DISTRIBUTION WIDTH 14.8 % (11.7-14.4)
[2018-10-25] MEDS: INSULIN LISPRO 100 UNIT/1 ML 3ML VIAL SQ SCH ×7 (07:30→21:00)
[2018-10-25 07:32] LABS: HEMOGLOBIN 6.7 g/dL (14.0-18.0)
[2018-10-25 07:35] LABS: PROTHROMBIN TIME 57.5 seconds (11.9-14.5)
--- NOTE | 2018-10-25 07:38 | NUR ---
RECEIVED CRITICAL RESULT NOTIFICATION FROM LAB FOR HGB 6.7 AND HCT 20.2, CALLED KALEB PEREZ AT [phone], LEFT DETAILED MESSAGE WITH PATIENT'S AND CALL BACK NUMBER.
[2018-10-25 07:54] LABS: ANION GAP 15.9 mmol/L (8-16); CREATININE, SERUM 3.61 mg/dL (0.72-1.25); POTASSIUM 3.9 mmol/L (3.5-5.1)
[2018-10-25 07:58] LABS: CALCIUM 6.8 mg/dL (8.4-10.2)
[2018-10-25 08:01] LABS: INR 6.45
[2018-10-25] MEDS ORDERED: SODIUM CHLORIDE 0.9% 250ML 250 ML IV ONE (08:15)
[2018-10-25 08:27] LABS: BASOPHILS % 0.2 % (0.0-1.0); EOSINOPHILS % 0.2 % (0.0-6.0); HEMATOCRIT 24.5 % (38.2-49.6); HEMOGLOBIN 8.2 g/dL (14.0-18.0); LYMPHOCYTES # (AUTO) 1.3 (1.0-3.2); LYMPHOCYTES % 7.8 % (18.0-39.1); MEAN CORPUSCULAR HEMOGLOBIN 31.4 pg (28-32); MEAN CORPUSCULAR HGB CONC 33.5 g/dL (31-35); MEAN CORPUSCULAR VOLUME 93.9 fL (81-99); MONOCYTES # (AUTO) 0.8 (0.2-0.8); MONOCYTES % 4.9 % (4.4-11.3); NEUTROPHILS # (AUTO) 13.2 (2.1-6.9); NEUTROPHILS % 81.5 % (38.7-80.0); PLATELET COUNT 222 x10e3/uL (140-360); RED BLOOD COUNT 2.61 x10e6/uL (4.3-5.7)
[2018-10-25] MEDS ORDERED: PHYTONADIONE 10 MG/ML AMP SQ ONE (08:45)
[2018-10-25] MEDS: METOPROLOL TARTRATE 50 MG TAB PO SCH ×2 (09:00→17:30)
[2018-10-25] MEDS: HYDRALAZINE HCL 25 MG TAB PO SCH ×3 (10:04→21:30)
[2018-10-25] MEDS: CLONIDINE HCL 0.1 MG TAB PO SCH ×3 (10:04→21:30)
[2018-10-25] MEDS: SODIUM BICARBONATE 650 MG TAB PO SCH ×2 (10:05→17:30)
[2018-10-25] MEDS: MAGNESIUM OXIDE 400 MG TAB PO SCH (10:05)
[2018-10-25] MEDS: PREDNISONE 5 MG TAB PO SCH (10:05)
[2018-10-25] MEDS: TACROLIMUS 1 MG CAP PO SCH ×2 (10:05→17:30)
[2018-10-25] MEDS: COLLAGENASE 5 GM TUBE TOP SCH (10:06)
[2018-10-25] MEDS: BALSAM PERU/CASTOR OIL 60 GM OINT...G. TP SCH (10:07)
[2018-10-25] MEDS: FAMOTIDINE 20 MG TAB PO SCH ×2 (10:10→17:29)
[2018-10-25] MEDS: METOCLOPRAMIDE HCL 10 MG/2ML VIAL IV SCH ×4 (10:10→21:30)
[2018-10-25] MEDS: BRIMONIDINE/TIMOLOL (OPTH SOLN 5 ML DRPETTE OP SCH (11:35)
[2018-10-25] MEDS: [UNRECOGNIZED DRUG - OTHER] TOP SCH (11:35)
[2018-10-25] MEDS: ZINC ACETATE TOP SCH (11:35)
[2018-10-25] MEDS: SODIUM BICARBONATE 8.4% SYRING 150 ML in DEXTROSE 5% 1,000 ML IV SCH (11:35)
[2018-10-25] MEDS ORDERED: SODIUM CHLORIDE 0.9% 250ML 250 ML ONE ×3 (13:05→22:55)
--- NOTE | 2018-10-25 14:35 | NUR ---
Visit made by the Spiritual Care Department Pastoral Visitor, [facility]. PV provided pastoral presence, prayer, hospitality, and supportive listening. Pastoral Visitor informed pt/family of the scope of [employer] and availability. DIPAK RODRIGUEZ Wood Grinder Operator Spiritual Care Department O: [phone] Pager: [phone] ([phone] number calling from)
--- NOTE | 2018-10-25 15:38 | Progress Note ---
DATE: 10/25/2018 SUBJECTIVE: The patient at bedside, accompanied by spouse, having some abdominal pain. Denying any history of fever, chills, nausea, or vomiting. He is looking somewhat pale. OBJECTIVE: VITAL SIGNS: Afebrile, pulse rate 54, respirations 18, blood pressure 142/84, and O2 saturation 97%. EXTREMITIES: Both ulcerations are looking somewhat better. The ulceration to mid arch region right foot is less than 1.5 cm in diameter. Still tracking down to plantar fascia, but negative drainage. Increased periwound cellulitis with negative foul smell. Has a grade 2 ulceration with necrosis noted down the subcutaneous tissue with the ulcer measuring more than 4 to 5 cm in diameter posterior aspect left heel. Pedal pulses palpable, but diminished. Skin temperature is warm to touch. LABORATORY DATA: Labs show white blood cell count continued to increase to 16.2, hemoglobin is 8.2, and platelet count is 222. Has a blood glucose of 100. INR of 6.45. ASSESSMENT: Diabetic neuropathy with grade 3 ulcer healing right foot with Charcot foot bilateral with a grade 2 ulcer left. PLAN: We will continue Santyl and collagenase, followed by diluted wet-to-dry. Continue offloading as best as possible. Continue IV vancomycin. We will continue to follow. MELANIA Taylor/MARA /[id number]
[2018-10-25 18:23] LABS: INR 3.11; PROTHROMBIN TIME 32.8 seconds (11.9-14.5)
[2018-10-25] MEDS: LATANOPROST(OPTH) 2.5 ML BTL OP SCH (21:30)
[2018-10-26] VITALS (9 sets, daily range): BP systolic 120–168; BP diastolic 68–96
[2018-10-26] MEDS: MORPHINE SULFATE INJ 4 MG/ML INJ 1ML IV PRN ×3 (02:05→18:10)
[2018-10-26] MEDS: ONDANSETRON HCL INJ 2MG/ML 2ML 2 MG/ML VIAL IV PRN ×3 (02:05→18:10)
[2018-10-26] MEDS ORDERED: SODIUM CHLORIDE 0.9% 250ML 250 ML ONE (02:16)
[2018-10-26] MEDS: TRAMADOL HCL 50 MG TAB PO SCH ×4 (06:00→18:00)
[2018-10-26] MEDS: VANCOMYCIN 250MG/5ML ORAL SOLN PO SCH (06:00)
[2018-10-26] MEDS ORDERED: INSULIN GLARGINE 100 UNITS/ML VIAL SQ SCH (06:00)
--- NOTE | 2018-10-26 07:00 | NUR ---
RECEIVED PATIENT RESTING IN BED, NO ACUTE DISTRESS NOTED. AT BEDSIDE. CALL LIGHT WITHIN REACH. BED IN THE LOWEST POSITION.
[2018-10-26] MEDS: INSULIN LISPRO 100 UNIT/1 ML 3ML VIAL SQ SCH ×6 (07:30→21:00)
[2018-10-26 08:20] LABS: BASOPHILS # (AUTO) 0.1 (0.0-0.1); BASOPHILS % 0.3 % (0.0-1.0); EOSINOPHILS % 0.2 % (0.0-6.0); HEMATOCRIT 29.4 % (38.2-49.6); HEMOGLOBIN 10.1 g/dL (14.0-18.0); LYMPHOCYTES % 5.7 % (18.0-39.1); MEAN CORPUSCULAR HEMOGLOBIN 31.1 pg (28-32); MEAN CORPUSCULAR HGB CONC 34.4 g/dL (31-35); MEAN CORPUSCULAR VOLUME 90.5 fL (81-99); MONOCYTES # (AUTO) 0.8 (0.2-0.8); MONOCYTES % 4.8 % (4.4-11.3); NEUTROPHILS # (AUTO) 13.9 (2.1-6.9); NEUTROPHILS % 81.9 % (38.7-80.0); PLATELET COUNT 200 x10e3/uL (140-360); RED BLOOD COUNT 3.25 x10e6/uL (4.3-5.7)
[2018-10-26 08:27] LABS: INR 1.96
[2018-10-26 08:32] LABS: ANION GAP 17.7 mmol/L (8-16); CALCIUM 8.5 mg/dL (8.4-10.2); CREATININE, SERUM 4.41 mg/dL (0.72-1.25); POTASSIUM 4.7 mmol/L (3.5-5.1)
[2018-10-26] MEDS: FAMOTIDINE 20 MG TAB PO SCH ×2 (08:40→16:30)
[2018-10-26] MEDS: METOCLOPRAMIDE HCL 10 MG/2ML VIAL IV SCH ×4 (08:40→22:37)
[2018-10-26] MEDS: BRIMONIDINE/TIMOLOL (OPTH SOLN 5 ML DRPETTE OP SCH (09:50)
[2018-10-26] MEDS: BALSAM PERU/CASTOR OIL 60 GM OINT...G. TP SCH (09:51)
[2018-10-26] MEDS: COLLAGENASE 5 GM TUBE TOP SCH (09:51)
[2018-10-26] MEDS: ZINC ACETATE TOP SCH (09:51)
[2018-10-26] MEDS: [UNRECOGNIZED DRUG - OTHER] TOP SCH (09:51)
[2018-10-26] MEDS: CLONIDINE HCL 0.1 MG TAB PO SCH ×3 (10:01→22:37)
[2018-10-26] MEDS: HYDRALAZINE HCL 25 MG TAB PO SCH ×3 (10:01→22:37)
[2018-10-26] MEDS: PREDNISONE 5 MG TAB PO SCH (10:02)
[2018-10-26] MEDS: METOPROLOL TARTRATE 50 MG TAB PO SCH ×2 (10:02→17:00)
[2018-10-26] MEDS: MAGNESIUM OXIDE 400 MG TAB PO SCH (10:02)
[2018-10-26] MEDS: CALCITRIOL 0.25 MCG CAP PO SCH (10:02)
[2018-10-26] MEDS: TACROLIMUS 1 MG CAP PO SCH ×2 (10:02→18:13)
[2018-10-26] MEDS: SODIUM BICARBONATE 650 MG TAB PO SCH ×2 (10:02→18:13)
--- NOTE | 2018-10-26 10:40 | NUR ---
Spiritual distress Industrial X Ray Operator visit via Spiritual Care consult from RN. Assessment: Pt overwhelmed by illness. Pt states, "I feel like Job" (Biblical character who endured great suffering). Pt's at bedside. Pt's hoping for a miracle that doesn't come and is gradually "accepting God's will." Pt's described pt's gradual decline and conflicts with blended family. Intervention: Provided unhurried pastoral presence, hospitality, and sympathetic listening. Provided prayer. Reminded pt/ of availability of clinical quality rn while hospitalized. Outcome: Pt & expressed appreciation for visit. DIPAK RODRIGUEZ Industrial X Ray Operator Spiritual Care Department O: [phone] Pager: [phone] ([phone] number calling from)
[2018-10-26] MEDS: SODIUM CHLORIDE 0.9% 1000ML 1,000 ML IV SCH (10:48)
--- NOTE | 2018-10-26 12:12 | Progress Note ---
DATE: 10/26/2018 SUBJECTIVE: The patient at bedside accompanied by . A little bit more alert, in better spirits today. Denies any history of fever, chills, nausea, or vomiting. OBJECTIVE: VITAL SIGNS: Afebrile, pulse rate 54, respirations 16, blood pressure 120/88, and O2 saturation 95%. EXTREMITIES: Ulcerations to both lower extremities are looking somewhat better. The ulceration to the right foot is closing and is now down to subcutaneous tissue. No plantar fascia visualized, less than 1.5 cm in diameter. Periwound cellulitis present. Has a grade 2 ulceration muscle to the posterior aspect of left heel measuring more than 4 to 5 cm in diameter with some necrosis noted on the subcutaneous tissue. Some black eschar also noted with negative foul smell. Pedal pulses are palpable. Has instability to the midtarsal joint bilaterally secondary to Charcot deformity. LABORATORY DATA: Labs pending today. ASSESSMENT: Diabetic neuropathy, multiple grade 2 ulcerations with Charcot foot. PLAN: We will continue Santyl followed by diluted wet-to-dry Betadine. Continue offloading. Okay to start physical therapy with [employer] walking boot and surgical shoe when weightbearing. Continue IV vancomycin. Continue offloading. We will continue to follow. MELANIA Taylor/CRUZL /[id number]
--- NOTE | 2018-10-26 13:16 | NUR ---
NOTIFIED DR. CHA OF PATIENT ASPIRATING DURING MBS. PER MD PUT PATIENT NPO AND NOTIFY GI AND RENAL FOR IV FLUIDS.
--- NOTE | 2018-10-26 13:17 | NUR ---
CALLED PLACED OUT TO DR. BLACKWELL TO NOTIFY OF PATIENT ASPIRATING DURING MBS, AND BEING NPO. WAITING MARKER MACHINE ATTENDANT BACK.
--- NOTE | 2018-10-26 13:18 | NUR ---
PAGED DR. PRO FOR IV FLUIDS ORDER.
--- NOTE | 2018-10-26 13:20 | NUR ---
PAGED DR. ROJAS THAT PATIENT IS NOW NPO, DUE TO ASPIRATING DURING MBS.
--- NOTE | 2018-10-26 13:40 | NUR ---
AL WITH DR. ROJAS CALLED BACK. ORDERS TO CHANGE PO VANCOMYCIN TO FLAGYL 500MG IV Q8H RECEIVED.
[2018-10-26] MEDS: METRONIDAZOLE 500MG/NS 100ML 100 ML IV SCH ×2 (14:26→22:37)
--- NOTE | 2018-10-26 14:34 | NUR ---
PAGED DR. BLACKWELL A SECOND TIME FOR ORDERS IN REGARDS TO PATIENT FAILING MBS AND BEING NPO.
--- NOTE | 2018-10-26 15:45 | NUR ---
Placed a second call out to Dr. Kim for fluid order since patient is NPO.
[2018-10-26 16:02] LABS: CREATININE,URINE RANDOM 61.36 mg/dL (63-166)
--- NOTE | 2018-10-26 16:26 | NUR ---
SPOKE TO PATIENT IN REGARDS TO ORDER FOR NG TUBE. PER PATIENT HE WILL LIKE TO WAIT UNTIL GI DOCTOR COMES SEE HIM TO SEE WHAT HIS OPTIONS ARE.
[2018-10-26] MEDS ORDERED: INSULIN LISPRO 100 UNIT/1 ML 3ML VIAL SQ SCH (16:30)
--- NOTE | 2018-10-26 16:30 | NUR ---
CALLED DR. CHAND IN REGARDS TO PATIENT'S BG OF 54 AND PATIENT BEING NPO. PER MD, HOLD ROUTINE HUMALOG ONLY GIVE SLIDING SCALE. IF PATIENT BECOMES DISORIENTED, ADMINISTER 1/2 AMPULE OF DEXTROSE 50%. UPON ASSESSMENT PATIENT IS AAOX3, ABLE TO VERBALIZE NEEDS.
--- NOTE | 2018-10-26 17:21 | NUR ---
NG TUBE INSERTED. ORDER FOR STAT KUB PLACED. WAITING FOR RESULTS TO BE ABLE TO ADMINISTER MEDICATIONS AND FEED PATIENT.
--- NOTE | 2018-10-26 17:25 | Diagnostic Imaging Report ---
Modified barium swallow, 10/26/2018. History: Aspiration. Fluoro time: 1.6 min. Dose: 7.1 mGy (VANNA) Technique: Fluoroscopy was performed by computer laboratory technician. A radiologist was not present for exam. Fluoroscopic observation and imaging of the oral cavity, oropharynx, and hypopharynx was performed in the lateral projection during swallowing of liquids and solids, administered by speech pathology. See speech pathologist report for findings. Signed by: Be Cummings on 10/26/2018 5:22 PM
--- NOTE | 2018-10-26 17:49 | Diagnostic Imaging Report ---
Abdomen, 1 view. History: NG tube placement. Findings: Limited evaluation of the lower chest/upper abdomen demonstrates a nasogastric tube terminating in the region of the gastric antrum. Contrast is present within the stomach and bowel. Signed by: Be Cummings on 10/26/2018 5:46 PM
--- NOTE | 2018-10-26 18:30 | NUR ---
TUBE FEEDING STARTED AT THIS TIME. NEPRO @ 10CC/HR WITH A GOAL OF 40CC/HR. WATER FLUSH SET UP FOR 150CC Q6H.
[2018-10-26] MEDS: DEXTROSE 50% SYRINGE 50 ML IV PRN (18:50)
--- NOTE | 2018-10-26 18:50 | NUR ---
pt blood sugar 38, D50 given, pt lethargic, at bedside, call light in reach
--- NOTE | 2018-10-26 19:20 | NUR ---
REPORT GIVEN TO ONCOMING NURSE. WALKING ROUNDS DONE. PATIENT RESTING IN BED. NO ACUTE DISTRESS NOTED. AT BEDSIDE. CALL LIGHT WITHIN REACH. BED IN THE LOWEST POSITION.
--- NOTE | 2018-10-26 19:47 | NUR ---
rechecked blood sugar 147
[2018-10-26 20:10] LABS: LYMPHOCYTES % (MANUAL) 4 % (19-48); METAMYELOCYTES % (MANUAL) 2 % (0-0); MONOCYTES % (MANUAL) 5 % (3.4-9.0); MYELOCYTES % (MANUAL) 1 % (0-0); NEUTROPHILS % (MANUAL) 88 % (40-74); RBC MORPHOLOGY COMMENT NORMAL
[2018-10-26 20:11] LABS: ANISOCYTOSIS SLIG; HYPOCHROMASIA SLIGHT; PLATELET ESTIMATE ADEQUATE; PLATELET MORPHOLOGY COMMENT NORMAL; POIKILOCYTOSIS SLIG
--- NOTE | 2018-10-26 22:20 | NUR ---
checked residual before giving meds and residual 400 cc of brown liquid, Dr. Cabrera in facility and informed and order to stop feeding, pt lethargic with periods of blank stares but able to answer questions, NG tube to right nare patent, feeding stopped, at bedside, bed in lowest and locked position and call light in reach
[2018-10-26] MEDS: LATANOPROST(OPTH) 2.5 ML BTL OP SCH (22:37)
[2018-10-27] VITALS (8 sets, daily range): BP systolic 108–198; BP diastolic 59–101
--- NOTE | 2018-10-27 01:25 | Progress Note ---
DATE: 10/26/2018 SUBJECTIVE: The patient is currently quite lethargic and drowsy. He has had a barium swallow evaluation, disposed risk of aspiration. NG was placed. He is currently getting NG feeding. He is not tolerating NG feeding. Residual is quite high. REVIEW OF SYSTEMS: Unobtainable. INPATIENT MEDICATIONS: Reviewed as per MAY. PHYSICAL EXAMINATION: VITAL SIGNS: Temperature 96.8, pulse 79, respirations 17, blood pressure 168/71, oxygen saturation 94% on 2 L of nasal cannula. GENERAL: Drowsy, lethargic. Oral mucosa is moist. NG is in place. ABDOMEN: Soft, nondistended, nontender. No palpable mass or hernia. Positive bowel sounds. LABORATORY DATA: WBC has gone to 16.99, hemoglobin 10.41, hematocrit 29.4, platelet count 200. Sodium 123, potassium 4.7, chloride 86, bicarb 24, BUN 96, creatinine 4.41. Abdominal x-ray showed NG tube in place. IMPRESSION: 1. Oropharyngeal dysphagia, high risk of aspiration. 2. Hyponatremia. 3. Clostridium difficile associated diarrhea. PLAN: Nephrology is following for hyponatremia. Agree to continue NG feeding, however, the patient is not tolerating at this time. Therefore, we will hold the feeding and resume slowly. I suspect that the patient's oropharyngeal dysphagia should improve once hyponatremia has resolved. Consider also giving prokinetic agents such as Reglan for increased residuals. Adán Cabrera MD SA/MARA /[id number]
[2018-10-27] MEDS: DEXTROSE 50% SYRINGE 50 ML IV PRN ×2 (01:30→11:15)
[2018-10-27] MEDS: TRAMADOL HCL 50 MG TAB PO SCH ×4 (05:41→17:28)
[2018-10-27] MEDS: VANCOMYCIN 250MG/5ML ORAL SOLN PO SCH ×3 (05:41→17:29)
[2018-10-27] MEDS: METRONIDAZOLE 500MG/NS 100ML 100 ML IV SCH ×3 (05:41→21:12)
--- NOTE | 2018-10-27 05:45 | NUR ---
checked pt residuals, 320cc, paged dr ayers office and message left with answering service
[2018-10-27] MEDS ORDERED: INSULIN GLARGINE 100 UNITS/ML VIAL SQ SCH (06:00)
[2018-10-27 06:08] LABS: BASOPHILS # (AUTO) 0.1 (0.0-0.1); BASOPHILS % 0.4 % (0.0-1.0); EOSINOPHILS # (AUTO) 0.1 (0.0-0.4); EOSINOPHILS % 0.4 % (0.0-6.0); HEMOGLOBIN 10.8 g/dL (14.0-18.0); LYMPHOCYTES # (AUTO) 0.9 (1.0-3.2); LYMPHOCYTES % 5.5 % (18.0-39.1); MEAN CORPUSCULAR HEMOGLOBIN 31.1 pg (28-32); MEAN CORPUSCULAR HGB CONC 33.8 g/dL (31-35); MEAN CORPUSCULAR VOLUME 92.2 fL (81-99); MONOCYTES # (AUTO) 0.9 (0.2-0.8); MONOCYTES % 5.5 % (4.4-11.3); NEUTROPHILS # (AUTO) 12.8 (2.1-6.9); NEUTROPHILS % 80.6 % (38.7-80.0); PLATELET COUNT 181 x10e3/uL (140-360); RED BLOOD COUNT 3.47 x10e6/uL (4.3-5.7); RED CELL DISTRIBUTION WIDTH 16.2 % (11.7-14.4)
[2018-10-27] MEDS: SODIUM CHLORIDE 0.9% 1000ML 1,000 ML IV SCH (06:10)
[2018-10-27 06:27] LABS: INR 1.65; PROTHROMBIN TIME 20.1 seconds (11.9-14.5)
[2018-10-27 06:33] LABS: ALBUMIN 2.8 g/dL (3.5-5.0); ALBUMIN/GLOBULIN RATIO 1.1 (0.8-2.0); ANION GAP 16.4 mmol/L (8-16); CALCIUM 8.6 mg/dL (8.4-10.2); CREATININE, SERUM 4.27 mg/dL (0.72-1.25); POTASSIUM 4.4 mmol/L (3.5-5.1)
[2018-10-27] MEDS: FAMOTIDINE 20 MG TAB PO SCH ×2 (07:30→16:30)
[2018-10-27] MEDS: INSULIN LISPRO 100 UNIT/1 ML 3ML VIAL SQ SCH ×4 (07:30→20:49)
--- NOTE | 2018-10-27 07:30 | NUR ---
The pt. was received from the off-going nurse and the pt.'s spouse is standing outside the room requesting blood glucose needs to be rechecked as it has been going up and down all night. She was advised that we are in the process of obtaining morning vital signs. She waited 15 minutes and came back again to state"I want his blood sugar checked right now." The glucometer is not available therefore this va underwriter borrowed from sister unit and performed the test with results of 74which was relayed to the spouse. She wanted dextrose given and was advised that this only given for result of 60 or less.
[2018-10-27 07:32] LABS: LYMPHOCYTES % (MANUAL) 2 % (19-48); MONOCYTES % (MANUAL) 3 % (3.4-9.0); NEUTROPHILS % (MANUAL) 95 % (40-74)
[2018-10-27] MEDS: HYDRALAZINE HCL 25 MG TAB PO SCH ×3 (09:00→21:00)
[2018-10-27] MEDS: TACROLIMUS 1 MG CAP PO SCH ×2 (09:00→17:00)
[2018-10-27] MEDS: [UNRECOGNIZED DRUG - OTHER] TOP SCH (09:00)
[2018-10-27] MEDS: ZINC ACETATE TOP SCH (09:00)
[2018-10-27] MEDS: PREDNISONE 5 MG TAB PO SCH (09:00)
[2018-10-27] MEDS: BRIMONIDINE/TIMOLOL (OPTH SOLN 5 ML DRPETTE OP SCH (09:00)
[2018-10-27] MEDS: METOPROLOL TARTRATE 50 MG TAB PO SCH ×2 (09:00→17:00)
[2018-10-27] MEDS: MAGNESIUM OXIDE 400 MG TAB PO SCH (09:00)
[2018-10-27] MEDS: BALSAM PERU/CASTOR OIL 60 GM OINT...G. TP SCH (09:00)
[2018-10-27] MEDS: SODIUM BICARBONATE 650 MG TAB PO SCH ×2 (09:00→17:00)
[2018-10-27] MEDS: COLLAGENASE 5 GM TUBE TOP SCH (09:00)
--- NOTE | 2018-10-27 09:15 | NUR ---
Dr. Herbert is rounding and new orders received and he spoke with the spouse about plans going forward.
--- NOTE | 2018-10-27 09:30 | NUR ---
I spoke with Dr. Kim and relayed morning lab results to him and no new orders were given to this casualty underwriter. He then called back to speak with the Charge Nurse to give order for dialysis today. The pt's consented for the procedure.
[2018-10-27] MEDS ORDERED: DIATRIZOATE MEGL/DIATRIZOA SOD 30 ML BTL PO ONE (09:43)
[2018-10-27] MEDS ORDERED: CLONIDINE HCL 0.2 MG/24 HR 1 EA PATCH TOP SCH (10:00)
--- NOTE | 2018-10-27 10:22 | NUR ---
ASSESSMENT: Spiritual Distress Pt & hope for a miracle. When asked concerning illness, "What do you want?" pt stated, "I want to get better." And when asked, "Are you giving up?" he replied, "No." Pt's states, "No matter what, I'm trusting God for a miracle." Pt's considering other healthcare options. Intervention: Provided unhurried empathic listening. Facilitated identification of emotions. Provided prayer. Outcome: Pt's expressed appreciation for support. Will continue to follow as able. DIPAK RODRIGUEZ Adult Services Librarian Spiritual Care Department O: [phone] Pager: [phone] ([phone] number calling from)
--- NOTE | 2018-10-27 10:47 | NUR ---
ST NOTE: Pt not tolerating tube feeds, residuals are high. Concern for neurological deficits with dysphagia and right tongue deviation. Pt with hallucinations and not appropriate for Speech Therapy intervention at this time, will follow pt status. Handoff to CHANEL Solano
--- NOTE | 2018-10-27 11:02 | Progress Note ---
DATE: 10/27/2018 SUBJECTIVE: The patient at bedside accompanied by spouse, has a nasogastric tube in on this date. He was unable to be eat and swallow foods yesterday. Seems somewhat pale on this date and not very communicative. OBJECTIVE: VITAL SIGNS: Afebrile, pulse rate 87, respirations 17, blood pressure 192/78, and O2 saturation 96%. EXTREMITIES: Both lower extremity ulcerations continue to improve slowly, right improving quicker than the left, down to subcutaneous tissue on both lower extremities. No plantar fascia seen on the right lower extremity. Has a lot of instability to the midtarsal joint bilaterally, right worse than left. Pedal pulses palpable, but somewhat diminished on this date. Skin temperature is warm and cool to touch. Ulceration to the left lower extremity is more than 4 to 5 cm diameter, ulcer to the right is less than 1.5 to 2 cm in diameter. LABORATORY DATA: Labs show white blood cell count of 15.8, hemoglobin 10.8, and platelet count of 181. ASSESSMENT: Diabetic neuropathy grade 2 ulcers x2, Charcot deformity with cellulitis. PLAN: Continue IV vancomycin. Continue Santyl followed by diluted wet-to-dry. Continue offloading as best as possible. Continue to follow. MELANIA Taylor/MARA /[id number]
--- NOTE | 2018-10-27 11:34 | NUR ---
Radiology reported that the pt. had barium procedure on 10/26 ans there is still barium in the bowel. I spoke with Dr. Herbert to impart this information and kub was ordered.
[2018-10-27] MEDS: METOCLOPRAMIDE HCL 10 MG/2ML VIAL IV SCH ×2 (12:00→17:27)
--- NOTE | 2018-10-27 14:07 | NUR ---
The pt. is currently in process of dialysis.
[2018-10-27] MEDS ORDERED: DEXTROSE 50% SYRINGE 50 ML IV PRN (14:30)
--- NOTE | 2018-10-27 15:55 | NUR ---
WOUND CARE RECONSULTATION: WOUND CARE RECONSULTED FOR SACRAL SCARRING FROM OLD HEALING ULCER TO SACRUM THAT IS SHOWING SIGNS OF NO LONGER BEING INTACT. HEAD TO TOE SKIN ASSESSMENT PERFORMED. PATIENT HAS A STAGE 2 PRESSURE ULCER TO THE SACRUM MEASURING 1X0.8X0.2CM, WITH 100% PINK GRANULATION TO WOUND BED. RECOMMENDATION: -CONTINUE ALTERNATING PRESSURE RELIEF MATTRESS. -CONT. BILATERAL HEEL PROTECTORS WITH PILLOW SUSPENSION. -TURN EVERY 2 HOURS AND PRN. -NURSING TO CLEAN STAGE 2 SACRAL PRESSURE ULCER WITH NORMAL SALINE, PAT DRY, APPLY VENELEX THEN ALLEVYN FOAM DRESSING; CHANGE DAILY AND PRN. Addendum: 10/27/18 at 1601 by Carie Bhagat RN Amended: Links added.
[2018-10-27] MEDS ORDERED: INSULIN LISPRO 100 UNIT/1 ML 3ML VIAL SQ SCH (16:30)
[2018-10-27] MEDS: DEXTROSE 5%/0.9% SOD CHL 1,000 ML IV SCH (17:24)
--- NOTE | 2018-10-27 19:00 | NUR ---
patient received awake, alert, lying quietly in bed. no c/o pain noted. ivf continue to infuse without difficulty. ngt remains with feedings on hold due to high residuals. pm assessment complete. noted at the bedside. patient/ instructed to call for assistance when needed.
[2018-10-27] MEDS: LATANOPROST(OPTH) 2.5 ML BTL OP SCH (21:00)
--- NOTE | 2018-10-27 23:41 | Progress Note ---
DATE: 10/27/2018 SUBJECTIVE: The patient is presently quite incoherent, I cannot derive any history from him. NG tube feeding was withheld last night due to high residual. The patient has a colostomy that is showing some gas in brownish fecal fluid. REVIEW OF SYSTEMS: Unobtainable. MEDICATIONS: Reviewed as per MAY. LABORATORY DATA: WBCs down to 15.89, hemoglobin 10.8, hematocrit 32, MCV 92.2, platelet count 181. Sodium is down to 121, potassium is 4.4, chloride 87, bicarb 22, BUN 95, creatinine 4.27. Liver enzymes showed total bilirubin 1.1, AST 108, ALT 75, alkaline phosphatase 163. Abdominal x-ray for confirmation of NG tube done yesterday showed NG tube in good position. Contrast was present in the stomach and bowel. IMPRESSION: 1. Oropharyngeal dysphagia with high risk of aspiration. 2. Profound hyponatremia. 3. Clostridium difficile associated diarrhea. PLAN: The patient is quite incoherent, lethargic, and also had hallucinating due to frequent use of morphine. This also must have caused significant residual on NG tube feeding. Management of hyponatremia as per primary team. Plan discontinue morphine, this is causing sluggish bowel. Resume NG feeding slowly, watch for tolerance. Colostomy bag showing a brownish fecal fluid, no longer having diarrhea. Continue oral vancomycin for another week. The patient is getting intravenous metronidazole for the reason unclear to me. Therefore we will continue it. Follow him up as an outpatient. Adán Cabrera MD SA/MARA /[id number]
[2018-10-28] VITALS (7 sets, daily range): BP systolic 109–186; BP diastolic 59–109
--- NOTE | 2018-10-28 01:15 | NUR ---
ngt pulled out by patient. ngt found on floor beside bed. ngt replaced to right nare without difficulty. ngt placement checked per auscultation with Martha Pardo RN. Tube feeding started with nepro 1.8 at 20cc hr per orders. hob remains up. patient repositioned for comfort. remains at the bedside.
--- NOTE | 2018-10-28 03:24 | NUR ---
blood sugar 110 at this time.
[2018-10-28] MEDS: TRAMADOL HCL 50 MG TAB PO SCH ×5 (05:08→23:35)
[2018-10-28] MEDS: VANCOMYCIN 250MG/5ML ORAL SOLN PO SCH ×2 (05:08)
[2018-10-28] MEDS: METRONIDAZOLE 500MG/NS 100ML 100 ML IV SCH ×3 (05:08→23:35)
[2018-10-28] MEDS: METOCLOPRAMIDE HCL 10 MG/2ML VIAL IV SCH ×5 (05:08→23:35)
[2018-10-28 05:54] LABS: BASOPHILS # (AUTO) 0.1 (0.0-0.1); BASOPHILS % 0.4 % (0.0-1.0); EOSINOPHILS # (AUTO) 0.1 (0.0-0.4); EOSINOPHILS % 0.2 % (0.0-6.0); HEMATOCRIT 32.2 % (38.2-49.6); HEMOGLOBIN 10.9 g/dL (14.0-18.0); LYMPHOCYTES # (AUTO) 1.1 (1.0-3.2); MEAN CORPUSCULAR HEMOGLOBIN 31.5 pg (28-32); MEAN CORPUSCULAR HGB CONC 33.9 g/dL (31-35); MEAN CORPUSCULAR VOLUME 93.1 fL (81-99); MONOCYTES # (AUTO) 1.2 (0.2-0.8); MONOCYTES % 5.5 % (4.4-11.3); NEUTROPHILS # (AUTO) 15.9 (2.1-6.9); PLATELET COUNT 157 x10e3/uL (140-360); RED BLOOD COUNT 3.46 x10e6/uL (4.3-5.7); RED CELL DISTRIBUTION WIDTH 16.3 % (11.7-14.4)
[2018-10-28 06:04] LABS: INR 1.79; PROTHROMBIN TIME 21.4 seconds (11.9-14.5)
[2018-10-28 06:21] LABS: ALBUMIN 2.7 g/dL (3.5-5.0); ALBUMIN/GLOBULIN RATIO 1.1 (0.8-2.0); ANION GAP 17.2 mmol/L (8-16); CALCIUM 8.3 mg/dL (8.4-10.2); CREATININE, SERUM 3.23 mg/dL (0.72-1.25); POTASSIUM 4.2 mmol/L (3.5-5.1)
[2018-10-28 06:34] LABS: EOSINOPHILS % (MANUAL) 1 % (0-7); LYMPHOCYTES % (MANUAL) 6 % (19-48); MONOCYTES % (MANUAL) 8 % (3.4-9.0); NEUTROPHILS % (MANUAL) 85 % (40-74); PLATELET ESTIMATE SLIGHTLY DECREASED; RBC MORPHOLOGY COMMENT NORMAL
--- NOTE | 2018-10-28 07:10 | NUR ---
Pt received resting in bed with at bedside. Alert and oriented x2-3. Pt with left arm AV fistula. Saline lock to right AC patent. Pt is on contact isolation for MRSA, C. DIFF, MDRO. Oriented to staff and surroundings. Encouraged to press call cobos if help needed. Call cobos within reach. Will monitor
[2018-10-28] MEDS: INSULIN LISPRO 100 UNIT/1 ML 3ML VIAL SQ SCH ×4 (07:30→21:00)
[2018-10-28] MEDS: [UNRECOGNIZED DRUG - OTHER] TOP SCH (09:00)
[2018-10-28] MEDS: ZINC ACETATE TOP SCH (09:00)
--- NOTE | 2018-10-28 09:00 | NUR ---
During rounds with Dr. Herbert, NGT noted at the foot of bed. Pt stated that his nose was itching. at bedside. Will reinsert NGT as per Dr. Herbert
--- NOTE | 2018-10-28 09:00 | Diagnostic Imaging Report ---
Abdomen, 1 view. History: NG tube placement. Findings: Limited evaluation of the lower chest/upper abdomen was performed. No NG tube is visible. Residual contrast from prior exam is noted within the colon. IVC filter is also noted. Signed by: Be Cummings on 10/28/2018 8:56 AM
--- NOTE | 2018-10-28 09:05 | Diagnostic Imaging Report ---
Abdomen, 1 view. History: Colitis. Findings: Residual contrast is present within the small bowel and proximal colon. There is no bowel dilatation. IVC filter is present. NG tube is present terminating near the gastric fundus. There are no masses or abnormal calcifications. The osseous structures are intact. IMPRESSION: Non-specific bowel gas pattern. Residual contrast noted. Signed by: Be Cummings on 10/28/2018 9:02 AM
--- NOTE | 2018-10-28 09:30 | NUR ---
Saline lock #20 inserted into right wrist. Pt cleaned with bath wipes. All linens changed. Right foot dressing redone. Left foot dressing done by Dr. Barrera. Will monitor
--- NOTE | 2018-10-28 09:40 | NUR ---
Pt's Eryn asked nurse "Do you believe in God? " I stated that I do believe in God. Eryn stated "I had a dream that my was walking without his boot, and the grass was green and beautiful. Emotional support given to pt and . Advised pt not to pull out NGT. Will monitor
--- NOTE | 2018-10-28 10:43 | Diagnostic Imaging Report ---
Abdomen, 1 view. History: NG tube. Findings: Single view of the lower chest/upper abdomen demonstrates interval advancement of the nasogastric tube which now terminates in the region of the proximal duodenum. Residual oral contrast from prior exam is noted within the small and large bowel. Signed by: Be Cummings on 10/28/2018 10:40 AM
--- NOTE | 2018-10-28 10:53 | Progress Note ---
DATE: 10/28/2018 SUBJECTIVE: The patient was seen at bedside, alert and oriented, having some abdominal pain. Denies any history of fever, chills, nausea, or vomiting. OBJECTIVE: VITAL SIGNS: Afebrile, pulse rate 86, respirations 16, and blood pressure 174/109, and O2 saturation 97%. EXTREMITIES: Ulcerations to both lower extremities, stable for now. The right foot ulceration healing has a necrotic scab down the subcutaneous tissue of left lower extremity. Pedal pulses are palpable, but diminished. Skin temperature is warm to touch on this date. Ulcer to the left foot is more than 4 to 5 cm diameter. Ulcer to plantar aspect right foot is less than 2 cm in diameter down the subcutaneous tissue respectively. LABORATORY DATA: Labs noted; has a white blood cell count of 21.19, hemoglobin 10.9, with a platelet count of 157. ASSESSMENT: Diabetic neuropathy, grade 2 ulcer x2 with a slow healing ulceration of left heel. PLAN: Dressings were changed. Santyl was applied, followed by diluted wet-to-dry Betadine. Offloading boots were applied. The patient's spouse instructed to keep a pillow under calf at all times. We will continue to follow. Continue to monitor. MELANIA Taylor/MARA /[id number]
--- NOTE | 2018-10-28 11:26 | NUR ---
EDUCATED ABOUT IMM SIGNED FILED IN CHART AND LEFT COPY WITH PT BEDSIDE WITH CARD FOR ANY FURTHER QUESTIONS
[2018-10-28] MEDS: CALCITRIOL 0.25 MCG CAP PO SCH (11:54)
[2018-10-28] MEDS: HYDRALAZINE HCL 25 MG TAB PO SCH ×3 (11:54→22:30)
[2018-10-28] MEDS: MAGNESIUM OXIDE 400 MG TAB PO SCH (11:54)
[2018-10-28] MEDS: FAMOTIDINE 20 MG TAB PO SCH ×2 (11:54→18:59)
[2018-10-28] MEDS: METOPROLOL TARTRATE 50 MG TAB PO SCH ×2 (11:54→19:00)
[2018-10-28] MEDS: SODIUM BICARBONATE 650 MG TAB PO SCH ×2 (11:54→19:00)
[2018-10-28] MEDS: BRIMONIDINE/TIMOLOL (OPTH SOLN 5 ML DRPETTE OP SCH (11:54)
[2018-10-28] MEDS: TACROLIMUS 1 MG CAP PO SCH ×2 (11:54→19:00)
[2018-10-28] MEDS: BALSAM PERU/CASTOR OIL 60 GM OINT...G. TP SCH (11:55)
[2018-10-28] MEDS: BALSAM PERU/CASTOR OIL 5 GM OINT...G. TP SCH (11:55)
[2018-10-28] MEDS: COLLAGENASE 5 GM TUBE TOP SCH (11:55)
--- NOTE | 2018-10-28 11:55 | NUR ---
Meds given via NGT. Placement confirmed by KUB & 2 nurses. Feeding restarted at 20ml/ hr. No residual noted. HOB elevated. Will follow up
[2018-10-28] MEDS: VANCOMYCIN 250MG/5ML ORAL SOLN NG SCH ×3 (13:36→23:35)
[2018-10-28] MEDS: METHYLPREDNISOLONE SOD SUCC 40 MG/ML VIAL 1ML IV SCH (13:36)
[2018-10-28] MEDS: DEXTROSE 5%/0.9% SOD CHL 1,000 ML IV SCH (13:37)
--- NOTE | 2018-10-28 13:42 | NUR ---
ASSESSMENT: Spiritual distress Pt states her hasn't been able to sleep. Pt's states worried about his declining health. Pt's states today is their daughter's birthday and their anniversary is this Friday. Pt's states "I hope he makes it till Friday." Intervention: Provided empathic listening and prayer. Outcome: Will continue to follow. DIPAK RODRIGUEZ Licensing Engineer Spiritual Care Department O: [phone] Pager: [phone] ([phone] number calling from)
[2018-10-28] MEDS ORDERED: SODIUM CHLORIDE 0.9% 1000ML 1,000 ML ONE (13:58)
--- NOTE | 2018-10-28 14:40 | NUR ---
Nutrition Intervention Note RD Recommendation(s) for Physician: The patient meets criteria for MODERATE protein-calorie malnutrition. - Rec initiating Nepro @20mL/hr, advance as tolerated to goal rate of 40mL/hr, providing 1728kcal, 78g protein, and 698mL water - Water flushes per MD - Keep HOB elevated 30 45 degrees during feeding - Rec renal MVi w/minerals and vitamin C for wound healing - Check gastric residual, labs, and daily weight Plan of Care: RD following, monitoring for tolerance and adequacy, TF rec Nutrition reason for involvement: Follow up RD Assessment (10/28) Discussed case with CHANEL Palumbo. Pt had high residual after started on tube feeding yesterday. KUB revealed residual oral contrast from prior exam is noted within the small and large bowel. No bowel obstruction noted. Apparently, pt pulled out his NGT this AM. NGT has been replaced and restarted with Nepro at 20mL/hr. Pt had dialysis treatment yesterday and today. Will continue to monitor and follow. (10/23) 63yo M, who was admitted for colitis. CT abd/pel revealed infectious or inflammatory colitis involving the cecum and ascending colon, without bowel obstruction. Pt was well known to me from his multiple admissions in the past. Pt was on isolation for C diff. Visited pt in the room. Per , pt has been eating well up to 1 week ago, when pt started to develop nausea, vomiting and diarrhea. Pt stated I cant even smell the foods. Attempted to obtain food preferences, pt stated he only wanted to drink Glucerna. Renal function has declined. K has been trending up (5.1 WNL). Discussed menu options with pt and . Pt has some moderate fat/muscle loss upon observation. Estimated of 30-40lbs weight loss in the last 6 months if admission weight is taken correctly. Will continue to monitor and follow. Principal Problems/Diagnoses: colitis, diabetic foot ulcer, [id number] kidney failure, transplantation with chronic rejection, now with distal renal tubular acidosis PMH: diabetes, hypertension, cadaveric kidney transplant on immunosuppressive medications, history of congestive heart failure, diabetic neuropathy, nephropathy, history of colostomy, diabetic foot ulcer, stage 3 to 4 kidney failure GI: abdomen soft, non-tender, distended, flatus present, liquid foamy green stool -10/28 Skin: diabetic foot ulcers Labs: (10/28) Na 128 L, BUN 67 H, Creatinine 3.23 H, Glucose 173 H, Ca 8.3 L, AST 141 H, ALT 98 H (10/23) Na 127 L, BUN 90 H, Creatinine 4.00 H, Glucose 357 H, uric acid 11.3 H, Ca 8.2 L Meds: dextrose, vancomycin, solu-medrol, reglan, pepcid, sodium bicarb, mag oxide, vitamin D Ht: 67in Wt: 145lb BMI: 22.7kg/m2 IBW: 148lb +/- 10% Malnutrition Evaluation (10/23/2018) The patient meets criteria for MODERATE protein-calorie malnutrition. Energy intake: <75% of estimated energy requirements for >3 months Weight loss: >10% in 6 months (Chronic) Fat loss: Moderate clavicle protrusion Muscle loss: Moderate temporal depression Supporting Evidence: Fluid accumulation: unable to evaluate Functional Status: reduced Nutrition Prescription (Diet Order): Nepro @40mL/hr Estimated Nutritional Needs: Calories: 1650 2310kcal (25-35kcal) Weight used: CBW Protein: 66 99g (1.0-1.5g/kg/d) Weight used: CBW Diet Adequacy: Not meeting calorie needs, Not meeting protein needs Diet Education Needs Assessment: Diet education indicated, but patient not appropriate for education at this time. Nutrition Care Level: mod Nutrition Diagnosis: Moderate malnutrition related to inadequate energy intake as evidenced by <75% of estimated energy requirements for >3 months, >10% weight loss in 6 months (Chronic) as well as moderate fat/ muscle loss. Goal: Patient will meet 75-100% of estimated needs by follow up Progress: Progressing Interventions: Composition, Rate, Route, Multivitamin/mineral supplement therapy Monitoring/Evaluation: Total energy intake, Total protein intake, Formula/Solution, Weight change Signed: Suyapa Rose, MS, RD, LD
--- NOTE | 2018-10-28 16:06 | NUR ---
Pt noted with sat 86% on room air. Placed on 3L NC. Pt is now at 97%. Dialysis being done at bedside. Will monitor
--- NOTE | 2018-10-28 17:30 | NUR ---
Pt's requesting for a "shot in pt's sacrum for pain". also stated she wants "sleeping pill because my was thrashing around all night". Advised that pt cannot tolerate any sedative but insisted on notifying Dr. Herbert. Will follow up
--- NOTE | 2018-10-28 18:40 | NUR ---
Pt's (Eryn) seen talking to Dr. Kim. Pt was unable to tolerate dialysis (HD) today due to unstable blood pressure. Dr. Kim advised pt's that pt will have one more HD session on Friday, and if pt does not tolerate dialysis like today, Dr. Kim will not longer offer HD for pt, and he spoke to Eryn about HOSPICE. Asked Dr. Kim regarding sedatives requested by pt's . Dr. Kim informed that pt does not need sedative due to unstable blood pressure. Tylenol IV 1GM one time dose ordered but if Tylenol IV works for pt's pain, pt can have Tylenol IV BID PRN. Will inform oncoming shift
--- NOTE | 2018-10-28 19:10 | NUR ---
Patient visited in room during nursing rounds. Patient alert and oriented x3. No distress noted. NG tube to right nare receiving Nepro at 30ml/hr (target rate: 40ml/hr). Colostomy on LLQ abd. Left arm AV fistula and dialysis just finished (1.6 L output). Pt very weak and is on bed rest at this time. at bedside. Call cobos within reach. Will monitor closely.
--- NOTE | 2018-10-28 20:02 | NUR ---
Pt's requesting Bumex IV. Dr. Kim notified. Bumex IV 2mg Q12 ordered. Handoff given to oncoming shift
[2018-10-28] MEDS ORDERED: ACETAMINOPHEN 1000 MG/100 ML IV NR (21:00)
[2018-10-28] MEDS ORDERED: SODIUM CHLORIDE 0.9% 250ML 250 ML ONE (22:23)
[2018-10-28] MEDS: BUMETANIDE INJ 0.25MG/ML 4ML VIAL IV SCH (22:30)
[2018-10-28] MEDS: LATANOPROST(OPTH) 2.5 ML BTL OP SCH (22:30)
[2018-10-29] VITALS: BP 105/47
[2018-10-29] MEDS ORDERED: ACETAMINOPHEN 1000 MG/100 ML IV PRN (00:30)
--- NOTE | 2018-10-29 01:07 | Progress Note ---
DATE: 10/28/2018 SUBJECTIVE: The patient is much alert today. Denies any abdominal pain. Tolerating NG tube feeding. REVIEW OF SYSTEMS: GENERAL: Lethargic and fatigue. CVS: No chest pain or palpitation. RESPIRATORY: No cough or expectoration. PHYSICAL EXAMINATION: VITAL SIGNS: Temperature 96.6, pulse 83, respirations 18, blood pressure 150/59, and oxygen saturation 91% on room air. GENERAL: Drowsy, lethargic, but coherent. HEENT: Oral mucosa is moist. ABDOMEN: Soft. Colostomy bag with some gas and small amount of brownish fecal fluid. Nondistended, nontender. No other mass or hernia. Positive bowel sounds. LABORATORY DATA: Sodium has come up to 128 from 121. Potassium 4.2, chloride 94, bicarb 21, BUN 67, and creatinine 3.23, which is down from 4.27. Glucose 119. Liver enzymes showed a total bilirubin 1.1, AST 141, ALT 98, and alkaline phosphatase 144. WBC has gone up to 21.19 from 15.89, hemoglobin 10.9, hematocrit 32.2, MCV 93.1, and platelet count 157. IMPRESSION: Oropharyngeal dysphagia/odynophagia, on NG feeding. PLAN: Continue enteral feeding. The patient clinically has improved since yesterday. Monitor stool in the colostomy bag. PPI daily. The day when he complains about more trouble swallowing food, consider switching famotidine with proton pump inhibitor. Adán Cabrera MD SA/MARA /[id number]
--- NOTE | 2018-10-29 01:30 | NUR ---
Visited pt in room and noticed NG tube out and laying on floor on right side of patient's bed. When asked pt what happened, pt stated he took NG tube out because he was having difficulty breathing and that it irritated his nose. Pt refused for new NG tube to be inserted and that he wanted to talk to the doctor in the morning. at bedside heard the conversation and was a witness. Feeding pump was also stopped at this time.
[2018-10-29 04:00] VITALS: BP 170/77
--- NOTE | 2018-10-29 05:30 | NUR ---
Offered the patient to place new NG tube and patient still refused. at bedside witnessed patient's wishes and she agrees to leave out NG tube for now. Patient and stated they plant to talk to doctors today to possibly keep NG tube out. Will pass on information to incoming dayshift RN. Will attempt to call Dr. Herbert this morning for notification. If no call back, will notify Dr. Herbert in person during rounds.
[2018-10-29] MEDS: TRAMADOL HCL 50 MG TAB PO SCH ×2 (05:37→12:00)
[2018-10-29] MEDS: VANCOMYCIN 250MG/5ML ORAL SOLN NG SCH ×3 (05:37→16:45)
[2018-10-29] MEDS: METRONIDAZOLE 500MG/NS 100ML 100 ML IV SCH ×2 (05:59→14:00)
[2018-10-29] MEDS: METOCLOPRAMIDE HCL 10 MG/2ML VIAL IV SCH ×3 (05:59→16:45)
[2018-10-29] MEDS: FAMOTIDINE 20 MG TAB PO SCH ×2 (06:00→16:43)
[2018-10-29 06:04] LABS: INR 1.72; PROTHROMBIN TIME 20.8 seconds (11.9-14.5)
--- NOTE | 2018-10-29 06:41 | NUR ---
Attempted to call Dr. Herbert but no answer. Left voice message informing patient pulled out NG tube last night and that patient refused for NG tube to be placed back in. at bedside witnessed event and stated they wanted to talk to the doctors to plead to keep NG tube out if necessary.
[2018-10-29] MEDS: INSULIN LISPRO 100 UNIT/1 ML 3ML VIAL SQ SCH ×3 (07:30→16:44)
[2018-10-29 08:00] VITALS: BP 182/77
--- NOTE | 2018-10-29 08:01 | NUR ---
Pt received in bed resting quietly breaths are even and unlabored on room air. Pt wakes easily with verbal stimuli. Family is at the bedside.
--- NOTE | 2018-10-29 08:04 | Progress Note ---
DATE: 10/29/2018 SUBJECTIVE: The patient at bedside accompanied by spouse and daughter. The patient is in better spirits on this date. He is denying any history of fever, chills, nausea, or vomiting and decreased pain to both lower extremities. OBJECTIVE: VITAL SIGNS: Afebrile, pulse rate 82, respirations 18, blood pressure 170/77, and O2 saturation 97%. LABORATORY DATA: Labs show white blood cell count of 21.19. Ulcerations to both lower extremities, stable for now. Ulceration to the mid arch region of the right foot healing less than 1.5 cm in diameter down to subcutaneous tissue. No plantar fascia visualized. Ulceration to the left heel has a necrotic scab down to the subcu, more than 4 to 5 cm in diameter with negative drainage. Pedal pulses are palpable. Skin temperature is warm to touch. ASSESSMENT: Multiple grade 2 ulcerations with patient mostly bed-bound with neuropathy and Charcot foot. PLAN: We will continue to treat the patient conservatively with Santyl followed by diluted wet-to-dry. Continue offloading as best as possible. We will continue to follow. MELANIA Taylor/MARA /[id number]
[2018-10-29 08:15] VITALS: BP 182/77
--- NOTE | 2018-10-29 08:45 | NUR ---
Spoke with family, and daughter of Mr. Rios. They expressed their wish to have pt transferred to [facility] where pt had kidney transplant on 2013. Family is still wanting him to have a repeat MBS because they are refusing to have NGT placed. Explained to him that Dr. Herbert is rounding in the hospital at this time and will be up to see him and he will be the one to initiate transfer. Notified Case management of pt and family wishes.
[2018-10-29] MEDS: TACROLIMUS 1 MG CAP PO SCH ×2 (09:00→16:45)
[2018-10-29] MEDS: HYDRALAZINE HCL 25 MG TAB PO SCH ×2 (09:00→16:43)
[2018-10-29] MEDS: MAGNESIUM OXIDE 400 MG TAB PO SCH (09:00)
[2018-10-29] MEDS: COLLAGENASE 5 GM TUBE TOP SCH (09:00)
[2018-10-29] MEDS: BRIMONIDINE/TIMOLOL (OPTH SOLN 5 ML DRPETTE OP SCH (09:00)
[2018-10-29] MEDS: METOPROLOL TARTRATE 50 MG TAB PO SCH ×2 (09:00→16:45)
[2018-10-29] MEDS: ZINC ACETATE TOP SCH (09:00)
[2018-10-29] MEDS: BALSAM PERU/CASTOR OIL 60 GM OINT...G. TP SCH (09:00)
[2018-10-29] MEDS: SODIUM BICARBONATE 650 MG TAB PO SCH ×2 (09:00→16:45)
[2018-10-29] MEDS: BALSAM PERU/CASTOR OIL 5 GM OINT...G. TP SCH (09:00)
[2018-10-29] MEDS: [UNRECOGNIZED DRUG - OTHER] TOP SCH (09:00)
--- NOTE | 2018-10-29 09:30 | NUR ---
Dr. Herbert was here to see pt and family. Received orders to initiate transfer to [facility]. He also gave orders for him to have a repeat MBS. Paged Dr. Kim to notified of family and pt wishes and waiting for call back from him. Paged Dr. Cabrera() to let him know that pt is refusing ngt placement and waiting for call back.
[2018-10-29] MEDS: METHYLPREDNISOLONE SOD SUCC 40 MG/ML VIAL 1ML IV SCH (09:40)
[2018-10-29] MEDS: BUMETANIDE INJ 0.25MG/ML 4ML VIAL IV SCH (09:44)
--- NOTE | 2018-10-29 10:30 | NUR ---
Received order to initiate transfer to [facility]. Spoke to pt's and she signed choice letter. Signed letter placed in chart. Copy to . CM called transfer center and spoke to Kenia. Transfer was initiated. FS, H&P and progress notes faxed as requested. Gave Kenia SHARP's contact information as well as nurses station.
--- NOTE | 2018-10-29 10:40 | NUR ---
Spoke with Dr. Kim at this time informed him of pt wish to be transferred to [facility] for higher level or care. Also received orders to to insert berger catheter for accurate urine output, received orders for PRN hydralazine 10mg IVP q4hrs PRN SBP>170
--- NOTE | 2018-10-29 11:00 | NUR ---
Sands catheter inserted at this time. Size 16Fr used and well tolerated by pt. 100ML or dark phoebe urine noted at time of insertion.
[2018-10-29] MEDS: HYDRALAZINE HCL 20 MG/ML VIAL IV PRN ×2 (11:24→15:45)
[2018-10-29 12:00] VITALS: BP 202/79
--- NOTE | 2018-10-29 12:51 | NUR ---
Received MOT from Kenia Wetzel with Transfer Center. [facility] [address] [place] [id number] Call report to [phone] Dr. Hoang Baumann to attend Approving admin is Kenia Wetzel RN MOT was completed and placed on pt's chart. CHANEL Barnes was informed and asked to faxed completed MOT to [phone].
--- NOTE | 2018-10-29 12:59 | NUR ---
Pt's family requested education managers for [facility]. Pt's consented pt's father's request. Contacted [facility]'s [employer], Janel Washington, and requested business development professional. Director Of Counseling may arrive between [phone] today. Followed up with RN. DIPAK RODRIGUEZ Study Specialist Spiritual Care Department O: [phone] Pager: [phone] ([phone] number calling from)
--- NOTE | 2018-10-29 13:20 | Consultation ---
DATE OF CONSULTATION: Cardiology Consultation CHIEF COMPLAINT: The patient is a 63-year-old with shortness of breath and edema. HISTORY OF PRESENT ILLNESS: The patient is a 63-year-old with previous renal transplant, who has been admitted with rejection of the transplant and the patient has been started on dialysis. The patient has had severe diabetes and has had multiple complications from the diabetes including foot ulcers, neuropathy and the patient is somewhat confused. PAST MEDICAL HISTORY: Significant for: 1. Renal transplant. 2. End-stage renal disease. 3. Hypertension. 4. Peripheral vascular disease. CURRENT MEDICATIONS: Include; Bumex, iron, Diflucan, hydralazine, tacrolimus, prednisone and Coumadin. SOCIAL HISTORY: The patient does not drink and does not smoke. FAMILY HISTORY: There is a known family history of diabetes. PHYSICAL EXAMINATION: GENERAL: The patient is in no obvious distress. VITAL SIGNS: Include a temperature of 98.8, blood pressure of 180/70, pulse was 68. HEAD, EARS, EYES, NOSE, and THROAT: The patient's cranium was normocephalic, atraumatic. Extraocular muscles intact. Sclerae were anicteric. Pupils were equal, round, and reactive to light. There was no pallor or cyanosis of the oral mucosa. NECK: Supple. No jugular venous distention. No carotid bruits. CHEST: Clear to auscultation and percussion. CARDIAC: Demonstrated normal S1 and S2 with a short 2/6 systolic murmur. ABDOMEN: Demonstrated good bowel sounds. No tenderness and no masses. EXTREMITIES: No clubbing, no cyanosis, no edema. NEUROLOGIC: The patient was very lethargic, did not move his extremities. IMAGING DATA: The patient's EKG demonstrated atrial fibrillation with a right bundle branch block. IMPRESSION: The patient is a 63-year-old with long-standing diabetes, who is rejection of a previously transplanted kidney, now on dialysis. RECOMMENDATIONS: As follows: 1. The patient's Coumadin will need to be continued for his atrial fibrillation. 2. An echocardiogram has been ordered to evaluate the patient's left ventricular size and function. MD SHARRON Castellon/MODL /[id number] cc: MD Pranay Holcomb MD
--- NOTE | 2018-10-29 15:00 | NUR ---
Notified Dr. Herbert that pt has been accepted to [facility]. Received orders to continue current meds. Dr. Koroma was here to see pt and was informed that pt will be transferred today. Received orders for medication changes. Received orders from Dr. Herbert that pt can be started on pureed diet with thin liquids, with strict aspiration precautions.
--- NOTE | 2018-10-29 15:40 | Diagnostic Imaging Report ---
Exam: Modified barium swallow Clinical history: Aspiration Findings: Modified barium swallow evaluation was performed under live fluoroscopy by the speech therapist. The radiologist was not present during the exam. Please refer to the report by the speech therapist. Signed by: Dr. Toño Carlos MD on 10/29/2018 3:37 PM
[2018-10-29 16:00] VITALS: BP 193/81
[2018-10-29] MEDS ORDERED: INSULIN LISPRO 100 UNIT/1 ML 3ML VIAL SQ SCH (16:30)
--- NOTE | 2018-10-29 18:49 | NUR ---
Pt transferred to [facility] for higher level of care. Report called to nurse who will be receiving pt at other hospital. Family at the bedside and aware of all discharge instructions.
[2018-10-29] MEDS ORDERED: INSULIN GLARGINE 100 UNITS/ML VIAL SQ SCH (21:00)
[2018-10-30] MEDS ORDERED: PREDNISONE 5 MG TAB PO SCH (09:00)
== END 2018-10-29 18:49 | disposition short-term general hospital (02) | DRG 853 ==
LOC: ER 04:44 → ERHOLD 09:06 → MED/SURG3 11:51
PROVIDERS: ADMIT Internal Medicine; ATTEND Internal Medicine
PROC: 0KBW0ZZ Excision of Left Foot Muscle, Open Approach (ICD-10-PCS; 2018-10-22)
PROC: 0KBV0ZZ Excision of Right Foot Muscle, Open Approach (ICD-10-PCS; 2018-10-22)
PROC: 5A1D70Z Performance of Urinary Filtration, Intermittent, Less than 6 Hours Per Day (ICD-10-PCS; principal; 2018-10-27)
PROC: 5A1D70Z Performance of Urinary Filtration, Intermittent, Less than 6 Hours Per Day (ICD-10-PCS; 2018-10-28)
DX: A41.89 Other specified sepsis (principal); N18.6 End stage renal disease; N17.0 Acute kidney failure with tubular necrosis; T86.11 Kidney transplant rejection; A52.16 Charcot's arthropathy (tabetic); L97.429 Non-pressure chronic ulcer of left heel and midfoot with unspecified severity; L97.518 Non-pressure chronic ulcer of other part of right foot with other specified severity; B37.49 Other urogenital candidiasis; A04.72 Enterocolitis due to Clostridium difficile, not specified as recurrent; I12.0 Hypertensive chronic kidney disease with stage 5 chronic kidney disease or end stage renal disease; E86.0 Dehydration; E11.22 Type 2 diabetes mellitus with diabetic chronic kidney disease; Z99.2 Dependence on renal dialysis; Z79.4 Long term (current) use of insulin; I48.2 Chronic atrial fibrillation; Z79.01 Long term (current) use of anticoagulants; E11.621 Type 2 diabetes mellitus with foot ulcer; B95.62 Methicillin resistant Staphylococcus aureus infection as the cause of diseases classified elsewhere; E78.5 Hyperlipidemia, unspecified; E11.649 Type 2 diabetes mellitus with hypoglycemia without coma; Z93.3 Colostomy status; E11.40 Type 2 diabetes mellitus with diabetic neuropathy, unspecified; E11.319 Type 2 diabetes mellitus with unspecified diabetic retinopathy without macular edema; I25.10 Atherosclerotic heart disease of native coronary artery without angina pectoris; E11.610 Type 2 diabetes mellitus with diabetic neuropathic arthropathy; Z74.01 Bed confinement status; K20.9 Esophagitis, unspecified; E11.43 Type 2 diabetes mellitus with diabetic autonomic (poly)neuropathy; K31.84 Gastroparesis
CPT/HCPCS: 36415; 71045; 74018; 74176; 74230; 80048; 80053; 80061; 81001; 82150; 82550; 82553; 82575; 82948; 83036; 83690; 83735; 83880; 83993; 84100; 84439; 84443; 84484; 84550; 85025; 85610; 85730; 86850; 86900; 86920; 87045; 87071; 87177; 87186; 87205; 87328; 87350; 87493; 90962; 93005; 93306; 96361; 96374; 96375; 97139; 99284; J0360; J1815; J1956; J2270; J2405; J2765; J2920; J3430; J7030; J7042; J7050; J7070; J7507; J7512; J7799; P9016; P9017; P9045